=== PATIENT | female | born 1970 | race Two or more races ===

== ENCOUNTER 2020-03-26 10:02 | Outpatient (REF) | payer MEDICAID, SELFPAY ==
[2020-03-26 17:55] LABS: Alanine Aminotransferase 38 U/L (0-31); Aspartate Amino Transferase 24 U/L (5-31); Cholesterol 359 mg/dL; HDL Cholesterol 41 mg/dL; Triglycerides 546 mg/dL
== END 2020-03-26 10:03 | disposition home or self-care (01) ==
LOC: CF 10:02
PROVIDERS: PCP Family Medicine; Visit Provider Nurse Practitioner Family
DX: R00.2 Palpitations (principal); I25.10 Atherosclerotic heart disease of native coronary artery without angina pectoris; E78.5 Hyperlipidemia, unspecified; E66.9 Obesity, unspecified; M79.606 Pain in leg, unspecified
CPT/HCPCS: 36415; 80061; 82550; 84450; 84460; 99214

== ENCOUNTER 2020-04-07 14:39 | Outpatient (REF) | payer MEDICAID, SELFPAY ==
--- NOTE | 2020-04-07 14:40 | CT_ITS ---
EXAMINATION: CT CHEST WITHOUT CONTRAST CLINICAL INFORMATION: Pulmonary nodule COMPARISON: Lung windows from abdominal pelvic CT scan August 2016 and previous chest x-rays most recent January 2020 TECHNIQUE: Multidetector volumetric CT imaging of the chest was done. Axial MIP volume rendering provided. Sagittal and coronal reformatted images were obtained. This CT examination was performed using dose optimization techniques as appropriate, variously including the following: *Automated exposure control *Adjustment of mA and/or kV according to patient size (this includes techniques or standardized protocols for targeted exams where dose is matched to indication/reason for exam; i.e. extremities or head) *Use of iterative reconstruction technique DLP: 416 mGy-cm FINDINGS: LUNGS: There are multiple bilateral calcified pulmonary nodules. Largest right pulmonary nodule measures 5 mm in the right lower lobe axial image 283 series 5. Largest left pulmonary nodule measures 5 mm axial image 240 series 5. These probably represent calcified granulomas. The lungs are otherwise clear. MEDIASTINUM: There are small calcified left hilar lymph nodes. There are small noncalcified mediastinal lymph nodes. No enlarged lymph nodes are seen. Heart does not appear enlarged. There is no pericardial effusion. PLEURA: There is no pleural effusion. No pleural mass or thickening. AXILLA: No lymphadenopathy. UPPER ABDOMEN: The liver may be enlarged. There are areas of cortical thinning or scarring of the kidneys. OSSEOUS STRUCTURES: There are degenerative changes of the spine. IMPRESSION: Multiple bilateral calcified pulmonary nodules suggestive of calcified granulomas.
== END 2020-04-07 14:40 | disposition home or self-care (01) ==
LOC: HO.CT 14:39
PROVIDERS: PCP Family Medicine; Visit Provider Family Medicine
DX: R91.1 Solitary pulmonary nodule (principal)
CPT/HCPCS: 71250

== ENCOUNTER → 2020-04-08 13:45 | Outpatient (BNVA) | payer MEDICAID, SELFPAY | PROVIDERS: PCP Family Medicine; Referring Provider Family Medicine; Visit Provider Physician Assistant | DX: K21.9 Gastro-esophageal reflux disease without esophagitis (principal); K76.0 Fatty (change of) liver, not elsewhere classified; K82.4 Cholesterolosis of gallbladder; Z79.899 Other long term (current) drug therapy | CPT/HCPCS: 99204 ==

== ENCOUNTER 2020-04-16 08:31 | Outpatient (REF) | payer MEDICAID, SELFPAY ==
--- NOTE | 2020-04-16 08:40 | US_ITS ---
EXAMINATION: US COMPLETE ABDOMEN WITH LIVER ELASTOGRAPHY CLINICAL INFORMATION: Fatty liver. COMPARISON: Ultrasound abdomen 04/09/2018 and 04/19/2019 TECHNIQUE: Real-time imaging of the abdominal viscera. Noninvasive ultrasound liver fibrosis assessment is performed using Irma ElastPQ point quantification shear wave elastography (pSWE) with a 5 MHz transducer. Multiple elastography samples are obtained. FINDINGS: PANCREAS: Normal. The visualized pancreatic head and body are normal in appearance. The remainder of the pancreas is obscured from visualization by the overlying bowel gas. ABDOMINAL AORTA: The proximal, middle and distal aortic segments are normal in caliber. INFERIOR VENA CAVA: Visualized portions are normal. LIVER: Normal. The liver demonstrates normal size, contour and heterogenous echogenicity. No focal lesion or intrahepatic biliary duct dilatation. The right lobe measures 22.6 cm in length. The left lobe measures 12.5 cm in length. There is hepatopedal flow seen in the portal vein on Doppler exam. Shear wave elastography provides a median stiffness of 1.54 m/s (reference: normal median stiffness is 0.81 - 1.22 m/s). The IQR/median stiffness to assess sampling precision is 0.25 (reference: optimal IQR/median stiffness is under 0.3). GALLBLADDER: Nonmobile echogenic polyp measuring 0.5 x 0.4 cm. No echogenic stones or wall thickening seen. COMMON BILE DUCT: Normal in caliber measuring 0.36 cm in diameter. RIGHT KIDNEY: Normal. No hydronephrosis. No renal calculi or focal parenchymal lesions. The kidney measures 11.6 cm in maximum dimension. LEFT KIDNEY: Mild cortical thinning versus lobulation noted in the midpole. No hydronephrosis. No renal calculi or focal parenchymal lesions. The kidney measures 11.1 cm in maximum dimension. SPLEEN: Normal. The spleen measures 9.0 cm in maximum dimension. FREE FLUID: None. US/US abdomen comp w elastography IMPRESSION: 1. Heterogenous echogenic liver without focal lesion. 2. Small gallbladder polyp. No echogenic stones or hydronephrosis. 3. Mild cortical thinning versus lobulation midpole left kidney. 4. Elastography: [id number] fibrosis, stage F2 - F3.
== END 2020-04-16 08:32 | disposition home or self-care (01) ==
LOC: HO.US 08:31
PROVIDERS: Visit Provider Physician Assistant
DX: K82.4 Cholesterolosis of gallbladder (principal); K76.0 Fatty (change of) liver, not elsewhere classified
CPT/HCPCS: 76705; 76981

== ENCOUNTER → 2020-04-21 13:40 | Outpatient (REF) | payer MEDICAID, SELFPAY ==
--- NOTE | 2020-04-21 13:47 | ECG_ITS ---
Hook-up date: 2020-04-21 14:05:00 Duration: 25:23:00 Test Indications: UNSPEC ATRIAL FLUTTER Medications: 467152 QRS complexes 25 Ventricular ectopics which represent <1 % of total QRS comp. 96 Supraventricular ectopics which represent <1 % of total QRS comp. * Paced QRS complexs which represent % of total QRS comp. VENTRICULAR ECTOPY 25 Isolated 0 Bigeminal Cycles 0 Couplets 0 Runs 0 Beats in Runs * Beats LONGEST at * BPM at :: -- * Beats FASTEST at * BPM at :: -- SUPRAVENTRICULAR ECTOPY 62 Isolated 0 Couplets 7 Runs 34 Beats in Runs 9 Beats LONGEST at 131 BPM at 04:38:21 2020-04-22 5 Beats FASTEST at 188 BPM at 14:30:55 2020-04-21 HEART RATES 61 MIN at 05:22:59 2020-04-22 96 AVG 161 MAX at 16:40:45 2020-04-21 LONGEST RR 1.0480 secs at 05:22:59 2020-04-22 S-T LEVELS Channel 1 - 128 mm at 14:05:00 2020-04-21 - 128 mm at 14:05:00 2020-04-21 Channel 2 - 128 mm at 14:05:00 2020-04-21 - 128 mm at 14:05:00 2020-04-21 Channel 3 - 128 mm at 03:32:41 -- - 128 mm at 03:32:41 Underlying rhythm is sinus; Average ventricular rate 96/min; range 61-161/min; About 45% of the time, ventricular rate>100/min; Occasional supraventricular ectopy with some short runs; No sustained arrhythmias; Patient diary not available for review, Referred By: Pamela Glover Overread By: CORDELL MONTAGUE
== END ==
LOC: HO.CARD 13:40
PROVIDERS: Visit Provider Nurse Practitioner Family
DX: R00.2 Palpitations (principal)
CPT/HCPCS: 93225; 93226

== ENCOUNTER → 2020-05-06 14:14 | Outpatient (BNVA) | payer MEDICAID, SELFPAY | PROVIDERS: PCP Family Medicine; Visit Provider Physician Assistant | DX: Z76.89 Persons encountering health services in other specified circumstances (principal) ==

== ENCOUNTER 2020-05-13 21:10 | Inpatient (IN) | payer MEDICAID, SELFPAY ==
[2020-05-13 21:19] VITALS: BP 156/75; PULSE 97; RESP 20; TEMP 36.7; O2SAT 97; BMI 40.2
--- NOTE | 2020-05-13 22:51 | US_ITS ---
EXAMINATION: ULTRASOUND VENOUS DUPLEX UPPER EXTREMITY CLINICAL INFORMATION: Rule out DVT COMPARISON: None TECHNIQUE: Sonographic evaluation of the right upper extremity veins was performed utilizing color Doppler and spectral analysis. FINDINGS: Lower portion of the right internal jugular vein appears patent. The right subclavian vein appears partially compressible, with minimal internal flow; appearance is suspicious for partial thrombosis. The right axillary vein, basilic vein, brachial vein, cephalic vein, and radial and ulnar veins appear patent. US/US venous duplex UE RT IMPRESSION: Suspect partial thrombosis of the right subclavian vein. This critical result was discussed with Dr. Bashir on 05/14/2020 12:23 AM, and it was ascertained that the content and urgency of the report was understood at the time of direct communication.
--- NOTE | 2020-05-13 23:12 | ED.GENADULT ---
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 Patient called her PCP advised her to come to the ED because her history of DVTs. Related Data Home Medications Medication Instructions Recorded Confirmed acetaminophen 650 mg 650 mg PO Q12H 03/26/20 03/26/20 tablet,extended release albuterol sulfate 90 mcg/actuation 2 puff INHALATION Q4-6H PRN 03/26/20 03/26/20 aerosol inhaler albuterol sulfate 90 mcg/actuation 1 inh INHALATION Q4-6H PRN 03/26/20 03/26/20 breath activated powder inhaler amlodipine 5 mg tablet 5 mg PO DAILY 03/26/20 03/26/20 aspirin 81 mg tablet,delayed 81 mg PO DAILY 03/26/20 03/26/20 release cholecalciferol (vitamin D3) 25 25 mcg PO DAILY 03/26/20 03/26/20 mcg (1,000 unit) capsule docusate sodium 100 mg capsule 100 mg PO DAILY 03/26/20 03/26/20 ezetimibe 10 mg tablet 10 mg PO DAILY 03/26/20 03/26/20 fluticasone propionate 110 1 puff INHALATION BID 03/26/20 03/26/20 mcg/actuation HFA aerosol inhaler gabapentin 400 mg capsule 400 mg PO DAILY 03/26/20 03/26/20 lorazepam 2 mg tablet 2 mg PO BEDTIME PRN 03/26/20 03/26/20 methocarbamol 500 mg tablet 500 mg PO QID 03/26/20 03/26/20 pantoprazole 40 mg tablet,delayed 40 mg PO DAILY 03/26/20 04/08/20 release ranitidine HCl 150 mg tablet mg PO PRN 03/26/20 03/26/20 rosuvastatin 10 mg tablet 10 mg PO DAILY 03/26/20 03/26/20 tramadol 50 mg tablet 50 mg PO Q4H PRN 03/26/20 03/26/20 zolpidem 10 mg tablet 10 mg PO BEDTIME PRN 03/26/20 03/26/20 Previous Rx's Medication Instructions Recorded fenofibrate 54 mg tablet 54 mg PO DAILY 30 Days #30 tab 03/27/20 Allergies Allergy/AdvReac Type Severity Reaction Status Date / Time loratadine [From CLARITIN] Allergy Mild CHILLS AND Verified 05/13/20 21:24 DIFF BREATHING Review of Systems Review of Systems: All other systems are reviewed and are negative Constitutional: Reports as per HPI and Reports no additional constitutional complaints Eyes: Reports as per HPI and Reports no additional eye complaints Reports system reviewed and no additional complaints, except as documented Cardiovascular: Reports as per HPI and Reports no additional cardiovascular complaints Respiratory: Reports as per HPI and Reports no additional respiratory complaints Gastrointestinal: Reports as per HPI and Reports no additional gastrointestinal complaints Genitourinary: Reports no additional female genitourinary complaints Musculoskeletal: Reports no additional musculoskeletal complaints Skin/Breast: Reports system reviewed and no additional complaints, except as docu Psychiatric: Reports no additional psychiatric complaints Endocrine: Reports no additional endocrine complaints Hematologic/Lymphatic: Reports no additional hematologic/lymphatic complaints Allergic/Immunologic: Reports no additional allergic/immunologic complaints Reports system reviewed and no additional complaints, except as documented and Reports Abnormal speech present [facility] Past Medical History Medical History Acid reflux Coronary artery disease Fatty liver Gall bladder polyp Hyperlipidemia Obesity (BMI 30-39.9) Surgical History History of cardiac cath Family History Family History Paternal Grandfather No problems noted. Father History of cancer Mother No problems noted. Social History Social History Alcohol intake: never Smoking Status: Never smoker Years Smoked: Prior smoker, no alcohol or drug use Use of substances other than those prescribed or required for medical reasons: No Advance Directives: No Advance Directives Information Provided: Yes Physical Exam Vital Signs: Vital Signs: Last Vital Signs Temp 98.0 F 05/13/20 21:19 Pulse 97 05/13/20 21:19 Resp 20 05/13/20 21:19 BP 156/75 H 05/13/20 21:19 Pulse Ox 97 05/13/20 21:19 Body Mass Index 40.2 Vital signs have been reviewed as normal and appeared to be correct. Blood pressure in the high range. Heart rate normal. Respiration rate normal. Temperature normal. Oxygen saturation normal. Appearance: Alert. Oriented X3. No acute distress. Head: Normal external exam. Normocephalic. Atraumatic. No Leroy signs noted. No raccoon eyes noted Eyes: PERRLA. EOMI. Conjunctiva and sclera normal. Eyelids normal. ENT: EAC normal. TM's Normal. Pharynx normal. Uvula midline. Moist mucous membranes. No trismus noted. No drooling noted. No muffled voice noted. Neck: Normal inspection. Neck supple. FROM. No adenopathy. Thyroid Normal. No meningeal signs. No neck mass noted. CVS: Normal heart rate and rhythm. Heart sound normal. No murmurs noted. Pulses normal throughout. Respiratory: No respiratory distress. Painless inspiration. Breath sounds normal. No wheezes/rales/rhonchi noted. Chest nontender. No accessory muscle usage noted or decreased air movement noted. Abdomen: Soft and nontender. Bowel sounds normal in all 4 quadrants. No distention noted. No organomegaly noted. No visible injury noted. Back: No CVA tenderness. Full range of motion noted. Skin: Skin warm and dry. Normal skin color. Normal skin turgor. No rashes/lesions/lacerations noted. Extremities: No lower extremity edema. Extremities exhibit normal range of motion. Extremities nontender. Neuro: Oriented X 3. No motor deficit. No sensory deficit. Reflexes normal. Medical Decision Making MDM Narrative Medical decision making narrative: Assessment and plan. 49-year-old female with history of DVTs presented with right upper extremity pain ultrasound revealed right subclavian vein DVT, will start the patient on Lovenox, patient will need long-term anticoagulation therapy, will admit the patient Lab Data Lab results reviewed: Yes I reviewed the patient's lab results. Result diagrams: 05/13/20 23:13 05/13/20 23:13 Labs: Lab Results 05/13/20 05/13/20 05/13/20 Range/Units 23:13 23:13 23:13 WBC 7.3 (4.8-10.8) X10*3/uL RBC 4.33 (4.20-5.50) X10*6/uL Hgb 13.3 (12.0-16.0) g/dl Hct 40.2 (37-47) % MCV 92.8 (80-98) fL MCH 30.7 (27.0-33.0) pg MCHC 33.1 (31.0-35.0) g/dl RDW 13.1 (11.0-16.0) % Plt Count 280 (160-400) X10*3/uL MPV 10.5 (9.4-12.3) fL Immature Gran % (Auto) 0.1 (0.0-0.4) % Neut % (Auto) 44.0 L (45-73) % Lymph % (Auto) 44.9 H (20-40) % [place] % (Auto) 10.0 (2-11) % Eos % (Auto) 0.7 (0-4) % Baso % (Auto) 0.3 (0-2) % Lymph # (Auto) 3.3 (1.2-4.9) X10*3/uL [place] # (Auto) 0.7 (0.1-1.2) X10*3/uL Eos # (Auto) 0.1 (0.0-0.4) X10*3/uL Baso # (Auto) 0.0 (0.0-0.2) X10*3/uL Abs Immat Gran (auto) 0.01 (0.00-0.03) X10*3/uL Absolute Neuts (auto) 3.2 (2.0-8.3) X10*3/uL Absolute Nucleated RBC 0.000 (0.0-0.012) X10*3/uL Nucleated RBC % (auto) 0.0 (0.0-0.2) /100WBC D-Dimer < 200 NG/ML Hold Blue Top SEE NOTE Sodium 137 (135-145) mmol/L Potassium 4.7 (3.3-5.1) mmol/l Chloride 104 (96-108) mmol/L Carbon Dioxide 22 (22-29) mmol/L Anion Gap 16 (12-20) BUN 19 H (9-16) mg/dL Creatinine 0.90 (0.5-1.4) mg/dL Estim Creat Clear Calc 78.0 Estimated GFR > 60 Random Glucose 102 (60-115) mg/dL Calcium 9.5 (8.4-10.2) mg/dL Urine Color Urine Appearance Urine pH (5.0-8.0) Ur Specific [place] (1.005-1.025) Urine Protein (NEG-TRACE) MG/DL Urine Glucose (UA) (NEG) MG/DL Urine Ketones (NEG) MG/DL Urine Blood (NEG) Urine Nitrite (NEG) Ur Leukocyte Esterase (NEG) 05/13/20 Range/Units 23:13 WBC (4.8-10.8) X10*3/uL RBC (4.20-5.50) X10*6/uL Hgb (12.0-16.0) g/dl Hct (37-47) % MCV (80-98) fL MCH (27.0-33.0) pg MCHC (31.0-35.0) g/dl RDW (11.0-16.0) % Plt Count (160-400) X10*3/uL MPV (9.4-12.3) fL Immature Gran % (Auto) (0.0-0.4) % Neut % (Auto) (45-73) % Lymph % (Auto) (20-40) % [place] % (Auto) (2-11) % Eos % (Auto) (0-4) % Baso % (Auto) (0-2) % Lymph # (Auto) (1.2-4.9) X10*3/uL [place] # (Auto) (0.1-1.2) X10*3/uL Eos # (Auto) (0.0-0.4) X10*3/uL Baso # (Auto) (0.0-0.2) X10*3/uL Abs Immat Gran (auto) (0.00-0.03) X10*3/uL Absolute Neuts (auto) (2.0-8.3) X10*3/uL Absolute Nucleated RBC (0.0-0.012) X10*3/uL Nucleated RBC % (auto) (0.0-0.2) /100WBC D-Dimer NG/ML Hold Blue Top Sodium (135-145) mmol/L Potassium (3.3-5.1) mmol/l Chloride (96-108) mmol/L Carbon Dioxide (22-29) mmol/L Anion Gap (12-20) BUN (9-16) mg/dL Creatinine (0.5-1.4) mg/dL Estim Creat Clear Calc Estimated GFR Random Glucose (60-115) mg/dL Calcium (8.4-10.2) mg/dL Urine Color YELLOW Urine Appearance CLEAR Urine pH 7.5 (5.0-8.0) Ur Specific [place] 1.025 (1.005-1.025) Urine Protein NEG (NEG-TRACE) MG/DL Urine Glucose (UA) NEG (NEG) MG/DL Urine Ketones NEG (NEG) MG/DL Urine Blood NEG (NEG) Urine Nitrite NEG (NEG) Ur Leukocyte Esterase NEG (NEG) Imaging Data Right upper extremities venous ultrasound: My impression: Suspect partial thrombosis of the right subclavian vein. Discharge Plan Discharge Clinical Impression: DVT (deep venous thrombosis) Patient Disposition: Admitted As Inpatient Prescriptions: No Action fenofibrate 54 mg tablet 54 mg PO DAILY 30 Days Qty: 30 RF: 5 ranitidine HCl 150 mg tablet PO PRNRF: 0 albuterol sulfate 90 mcg/actuation aerosol powdr breath activated 1 inh inhalation Q4-6H PRNRF: 0 lorazepam [Ativan] 2 mg tablet 2 mg PO BEDTIME PRNRF: 0 Flovent HFA 110 mcg/actuation HFA aerosol inhaler 1 puff inhalation BID RF: 0 zolpidem [Ambien] 10 mg tablet 10 mg PO BEDTIME PRNRF: 0 albuterol sulfate [ProAir HFA] 90 mcg/actuation HFA aerosol inhaler 2 puff inhalation Q4-6H PRNRF: 0 tramadol 50 mg tablet 50 mg PO Q4H PRNRF: 0 aspirin [Adult Low Dose Aspirin] 81 mg tablet,delayed release (DR/EC) 81 mg PO DAILY RF: 0 cholecalciferol (vitamin D3) 25 mcg (1,000 unit) capsule 25 mcg PO DAILY RF: 0 rosuvastatin [Crestor] 10 mg tablet 10 mg PO DAILY RF: 0 methocarbamol 500 mg tablet 500 mg PO QID RF: 0 gabapentin [Neurontin] 400 mg capsule 400 mg PO DAILY RF: 0 acetaminophen 650 mg tablet extended release 650 mg PO Q12H RF: 0 pantoprazole [Protonix] 40 mg tablet,delayed release (DR/EC) 40 mg PO DAILY RF: 0 docusate sodium [Colace] 100 mg capsule 100 mg PO DAILY RF: 0 ezetimibe [Zetia] 10 mg tablet 10 mg PO DAILY RF: 0 amlodipine [Norvasc] 5 mg tablet 5 mg PO DAILY RF: 0
[2020-05-13 23:19] LABS: Basophils Percent Auto 0.3 % (0-2); Eosinophils Absolute Auto 0.1 X10*3/uL (0.0-0.4); Eosinophils Percent Auto 0.7 % (0-4); Hematocrit 40.2 % (37-47); Hemoglobin 13.3 g/dl (12.0-16.0); Imm Gran Abs Auto 0.01 X10*3/uL (0.00-0.03); Imm Gran Pct Auto 0.1 % (0.0-0.4); Lymphocytes Absolute Auto 3.3 X10*3/uL (1.2-4.9); Lymphocytes Percent Auto 44.9 % (20-40); MANUAL DIFF FLAG NO; Mean Corpuscular HGB Conc 33.1 g/dl (31.0-35.0); Mean Corpuscular Hemoglobin 30.7 pg (27.0-33.0); Mean Corpuscular Volume 92.8 fL (80-98); Mean Platelet Volume 10.5 fL (9.4-12.3); Monocytes Absolute Auto 0.7 X10*3/uL (0.1-1.2); Neutrophils Absolute Auto 3.2 X10*3/uL (2.0-8.3); Platelet Count 280 X10*3/uL (160-400); Red Blood Count 4.33 X10*6/uL (4.20-5.50); Red Cell Distribution Width 13.1 % (11.0-16.0); White Blood Count 7.3 X10*3/uL (4.8-10.8)
[2020-05-13 23:22] LABS: Glucose Urine UA NEG (NEG); Leukocyte Esterase Urine NEG (NEG); Nitrite Urine NEG (NEG); PH 7.5 (5.0-8.0); Specific Gravity - Urine 1.025 (1.005-1.025); Urine Blood NEG (NEG); Urine Ketones NEG (NEG); Urine Protein NEG (NEG-TRACE)
[2020-05-13 23:23] LABS: Appearance Urine CLEAR; Color Urine YELLOW
[2020-05-13 23:33] LABS: D Dimer < 200 NG/ML
[2020-05-13 23:52] LABS: Anion Gap 16 (12-20); Blood Urea Nitrogen 19 mg/dL (9-16); Calcium 9.5 mg/dL (8.4-10.2); Carbon Dioxide 22 mmol/L (22-29); Chloride 104 mmol/L (96-108); Estimated Glomerular Filt Rate > 60; Glucose Random 102 mg/dL (60-115); Potassium 4.7 mmol/l (3.3-5.1); Sodium 137 mmol/L (135-145)
[2020-05-14] VITALS (9 sets, daily range): BP systolic 107–146; BP diastolic 56–90; PULSE 80–86; RESP 12–84; TEMP 36.6–36.9; O2SAT 95–98
[2020-05-14 01:10] LABS: Prothrombin Time 12.2 SEC (10.8-13.0)
[2020-05-14 01:12] LABS: Partial Thromboplastin Time 37.9 SEC (24.1-38.0)
[2020-05-14] MEDS: Enoxaparin Sodium 150 MG/ML SYRINGE 95 MG SUBCUT (01:38)
[2020-05-14 03:00] LABS: COVID-19 Test Negative (Negative)
--- NOTE | 2020-05-14 03:22 | PM.IMHP ---
History of Present Illness Date of Service: 05/14/20 Chief Complaint: Right arm pain 49 y/o female with extensive PMHX who presented from home due to RUE pain. Per history provided by the patient, since yesterday afternoon has been having worsening right arm pain associated with swelling at the level of the right side of the neck. Pateint denies any chest pain, SOB, nausea, vomiting, diarrhea or fever. On presentation to the ED patient was noted to be tachycardic which later normalized, BP stable, no evidence of fever, Doppler of RUE showing suspected partial DVT of the right subclavian vein. One dose of full dose anticoagulation given per ED and decision was given for admission. Patient seen and examined at the bedside, laying down in bed in no acute distress. ROS as above otherwise negative. Physical exam positive for RUE swelling at the level of the neck, hot to touch. Rest of the exam unremarkable. Patient reports that had hx of DVT in the past but was treated with a short course of AC injections in the hospital and then discharged on aspirin, this occur several years ago. PMHX: HLP, Asthma, Migraines, Panic disorder, DVT not on anticoagulation PSx: none Toxic habits: No hx of alcohol abuse, smoking or IVDA Review of Systems Musculoskeletal: Musculoskeletal: Reports other (right arm pain) [facility]LY [facility] Medical History Acid reflux Coronary artery disease Fatty liver Fibromyalgia Gall bladder polyp Hyperlipidemia Hypertension Obesity (BMI 30-39.9) Sleep apnea Functional capacity: independent ambulation Family History Paternal Grandfather No problems noted. Father History of cancer Lung cancer Mother No problems noted. Family history: reviewed and not pertinent Surgical History (Updated 05/15/20 @ 14:58 by America Leija MD) History of cardiac cath Social History Household Members: Significant Other and Children Housing: Apartment Alcohol intake: never Smoking Status: Never smoker Years Smoked: Prior smoker, no alcohol or drug use Smoked in Last 30 Days: No Second Hand Smoke Exposure: No Use of substances other than those prescribed or required for medical reasons: No Advance Directives: No Advance Directives Information Provided: No service: No Meds Allergies Allergy/AdvReac Type Severity Reaction Status Date / Time loratadine [From CLARITIN] Allergy Mild CHILLS AND Verified 05/21/20 21:06 DIFF BREATHING Home Medications Medication Instructions Recorded Confirmed Type albuterol sulfate 90 mcg/actuation 1 inh INHALATION Q4-6H PRN 03/26/20 05/14/20 History breath activated powder inhaler amlodipine 5 mg tablet 5 mg PO DAILY 03/26/20 05/14/20 History aspirin 81 mg tablet,delayed 81 mg PO DAILY 03/26/20 05/14/20 History release cholecalciferol (vitamin D3) 25 25 mcg PO DAILY 03/26/20 05/14/20 History mcg (1,000 unit) capsule docusate sodium 100 mg capsule 100 mg PO DAILY PRN 03/26/20 05/14/20 History ezetimibe 10 mg tablet 10 mg PO DAILY 03/26/20 05/14/20 History fluticasone propionate 110 1 puff INHALATION BID 03/26/20 05/14/20 History mcg/actuation HFA aerosol inhaler gabapentin 400 mg capsule 400 mg PO DAILY 03/26/20 05/14/20 History lorazepam 2 mg tablet 2 mg PO BEDTIME PRN 03/26/20 05/14/20 History methocarbamol 500 mg tablet 500 mg PO QID PRN 03/26/20 05/14/20 History pantoprazole 40 mg tablet,delayed 40 mg PO DAILY 03/26/20 05/14/20 History release rosuvastatin 10 mg tablet 10 mg PO DAILY 03/26/20 05/14/20 History zolpidem 10 mg tablet 5 mg PO BEDTIME PRN 03/26/20 05/14/20 History tramadol 50 mg PO BID PRN 05/20/20 05/20/20 History Physical Exam Vital Signs and Narrative: Vital Signs: Last Vital Signs Temp 98.0 F 05/13/20 21:19 Pulse 83 05/14/20 00:00 Resp 15 05/14/20 00:00 BP 130/70 05/14/20 00:00 Pulse Ox 98 05/14/20 00:00 Body Mass Index 40.2 Const: General: cooperative, comfortable and no acute distress Orientation/consciousness: oriented to person, oriented to place and oriented to time HENMT: Head: Yes normal to inspection Eyes: General: appearance normal, both eyes and all related structures Neck: Yes other (right side swelling / hot to touch on palpation) Chest: Chest palpation & inspection: normal inspection of the chest Resp: Effort & Inspection: normal respiratory effort and able to speak in complete sentences Cardio: Jugular venous distension: no JVD Rate: regular rate Rhythm: regular rhythm Heart sounds: S1 normal heart sound present and S2 normal heart sound present GI: Inspection: Yes normal to inspection Skin: General skin exam: no rashes or lesions noted Neuro: General: oriented to person, oriented to place and oriented to time Cognition (Neuro): normal cognition Motor exam (neuro): 5/5 motor strength present throughout Results Labs CBC and Chem 7: 05/15/20 05:22 05/15/20 05:21 Labs: Laboratory Results - last 24 hr 05/13/20 05/13/20 05/13/20 23:13 23:13 23:13 MCV 92.8 MCH 30.7 MCHC 33.1 RDW 13.1 Plt Count 280 MPV 10.5 Immature Gran % (Auto) 0.1 Neut % (Auto) 44.0 L Lymph % (Auto) 44.9 H Nobles % (Auto) 10.0 Eos % (Auto) 0.7 Baso % (Auto) 0.3 Lymph # (Auto) 3.3 Nobles # (Auto) 0.7 Eos # (Auto) 0.1 Baso # (Auto) 0.0 Abs Immat Gran (auto) 0.01 Absolute Neuts (auto) 3.2 Absolute Nucleated RBC 0.000 Nucleated RBC % (auto) 0.0 PT 12.2 INR 1.0 APTT 37.9 D-Dimer < 200 Hold Blue Top SEE NOTE Anion Gap 16 Estim Creat Clear Calc 78.0 Estimated GFR > 60 Random Glucose 102 Calcium 9.5 Urine Color Urine Appearance Urine pH Ur Specific Mikado Urine Protein Urine Glucose (UA) Urine Ketones Urine Blood Urine Nitrite Ur Leukocyte Esterase COVID-19 (MIREYA) COVID-19 Clin Com 05/13/20 05/14/20 23:13 02:42 MCV MCH MCHC RDW Plt Count MPV Immature Gran % (Auto) Neut % (Auto) Lymph % (Auto) Nobles % (Auto) Eos % (Auto) Baso % (Auto) Lymph # (Auto) Nobles # (Auto) Eos # (Auto) Baso # (Auto) Abs Immat Gran (auto) Absolute Neuts (auto) Absolute Nucleated RBC Nucleated RBC % (auto) PT INR APTT D-Dimer Hold Blue Top Anion Gap Estim Creat Clear Calc Estimated GFR Random Glucose Calcium Urine Color YELLOW Urine Appearance CLEAR Urine pH 7.5 Ur Specific Mikado 1.025 Urine Protein NEG Urine Glucose (UA) NEG Urine Ketones NEG Urine Blood NEG Urine Nitrite NEG Ur Leukocyte Esterase NEG COVID-19 (MIREYA) Negative COVID-19 Clin Com See Note Imaging Radiologist's Impressions: Impressions Venous Duplex 05/13/20 22:51 IMPRESSION: Suspect partial thrombosis of the right subclavian vein. This critical result was discussed with Dr. Bashir on 05/14/2020 12:23 AM, and it was ascertained that the content and urgency of the report was understood at the time of direct communication. Assessment and Plan (1) DVT (deep venous thrombosis): Qualifiers: Affected thrombotic vein of extremity: other upper extremity vein Chronicity: acute DVT location: upper extremity Laterality: right Qualified Code(s): I82.621 - Acute embolism and thrombosis of deep veins of right upper extremity Status: Resolved One dose of full dose AC given per ED Continue with full dose lovenox as of now Follow up Protein C, Protein S, Factor V Leiden, antithrombin activity Hematology consult in the am for further recs (2) Hyperlipidemia: Problem details: ideal LDL goal less than 70. she has been intolerant to high-dose atorvastatin. She is now on Crestor 10 mg daily and Zetia 10 mg daily which she had been tolerating. Now reports bilateral leg discomfort and tenderness. Unclear if it is related to statin use. continue with oral home meds as ordered (3) Coronary artery disease: Problem details: history of nonobstructive coronary artery disease, mild. No report of anginal sounding symptoms. Her cholesterol has not been optimally controlled in the past. continue with amlodipine home dose continue with aspirin home dose (4) Acid reflux: Problem details: 70 lb weight gain- continue with PPI home dose
[2020-05-14] MEDS: Morphine Sulfate 2 MG/ML CARTRIDGE 1 MG IVPUSH (04:19)
[2020-05-14] MEDS: Magnesium Hydrox/Alum Hydrox 30 ML ORAL.SUSP 15 ML PO (04:20)
--- NOTE | 2020-05-14 08:45 | PC.NURSE ---
report taken from eyal valentin pt moved to room 8 via stretcher, given breakfast, given phone to call family member. awiating inpt admission.
--- NOTE | 2020-05-14 11:39 | PC.NURSE ---
pt asking for ativan, has it ordered prn at bedtime. did not recieve it last night. hospitalist contacted to continue med list.
[2020-05-14] MEDS: LORazepam 1 MG TABLET PO (11:49)
--- NOTE | 2020-05-14 13:57 | PC.NURSE ---
report given to juan valentin.
[2020-05-14] MEDS: Enoxaparin Sodium 100 MG/ML SYRINGE 95 MG SUBCUT (15:46)
[2020-05-14] MEDS: amLODIPine Besylate 5 MG TABLET PO (15:46)
[2020-05-14] MEDS: 0.9 % Sodium Chloride Flush 3 ML SYRINGE IVFLUSH ×3 (15:47→20:31)
[2020-05-14 15:49] LABS: MANUAL DIFF FLAG NO
[2020-05-14 15:52] LABS: Basophils Percent Auto 0.3 % (0-2); Eosinophils Absolute Auto 0.1 X10*3/uL (0.0-0.4); Eosinophils Percent Auto 0.8 % (0-4); Hematocrit 41.2 % (37-47); Hemoglobin 13.8 g/dl (12.0-16.0); Imm Gran Abs Auto 0.01 X10*3/uL (0.00-0.03); Imm Gran Pct Auto 0.2 % (0.0-0.4); Lymphocytes Absolute Auto 2.6 X10*3/uL (1.2-4.9); Lymphocytes Percent Auto 44.3 % (20-40); Mean Corpuscular HGB Conc 33.5 g/dl (31.0-35.0); Mean Corpuscular Hemoglobin 31.2 pg (27.0-33.0); Mean Platelet Volume 10.7 fL (9.4-12.3); Monocytes Absolute Auto 0.4 X10*3/uL (0.1-1.2); Monocytes Percent Auto 7.3 % (2-11); Neutrophils Absolute Auto 2.8 X10*3/uL (2.0-8.3); Neutrophils Percent Auto 47.1 % (45-73); Platelet Count 277 X10*3/uL (160-400); Red Blood Count 4.43 X10*6/uL (4.20-5.50); Red Cell Distribution Width 13.2 % (11.0-16.0); White Blood Count 5.9 X10*3/uL (4.8-10.8)
[2020-05-14 16:15] LABS: Anion Gap 15 (12-20); Blood Urea Nitrogen 13 mg/dL (9-16); Calcium 9.6 mg/dL (8.4-10.2); Carbon Dioxide 25 mmol/L (22-29); Chloride 103 mmol/L (96-108); Creatinine Clr Calc Pharmacy 83.6; Estimated Glomerular Filt Rate > 60; Glucose Random 126 mg/dL (60-115); Potassium 4.1 mmol/l (3.3-5.1); Sodium 139 mmol/L (135-145)
[2020-05-14] MEDS: traMADoL HCL 50 MG TABLET PO (16:33)
[2020-05-14] MEDS: Cyclobenzaprine HCl 10 MG TABLET PO (20:30)
[2020-05-14] MEDS: LORazepam 1 MG TABLET 2 MG PO (20:30)
[2020-05-15] MEDS: Enoxaparin Sodium 100 MG/ML SYRINGE 95 MG SUBCUT ×2 (03:29→15:19)
[2020-05-15] MEDS: Omeprazole 20 MG CAPSULE.DR PO (05:22)
[2020-05-15 06:20] LABS: Hematocrit 40.5 % (37-47); Hemoglobin 13.4 g/dl (12.0-16.0); Mean Corpuscular HGB Conc 33.1 g/dl (31.0-35.0); Mean Corpuscular Hemoglobin 30.7 pg (27.0-33.0); Mean Corpuscular Volume 92.9 fL (80-98); Mean Platelet Volume 10.9 fL (9.4-12.3); Platelet Count 282 X10*3/uL (160-400); Red Blood Count 4.36 X10*6/uL (4.20-5.50); Red Cell Distribution Width 13.3 % (11.0-16.0); White Blood Count 6.6 X10*3/uL (4.8-10.8)
[2020-05-15 06:41] LABS: Anion Gap 13 (12-20); Blood Urea Nitrogen 15 mg/dL (9-16); Calcium 9.4 mg/dL (8.4-10.2); Carbon Dioxide 26 mmol/L (22-29); Chloride 104 mmol/L (96-108); Creatinine Clr Calc Pharmacy 73.9; Estimated Glomerular Filt Rate > 60; Glucose Random 98 mg/dL (60-115); Potassium 4.3 mmol/l (3.3-5.1); Sodium 139 mmol/L (135-145)
[2020-05-15 08:00] VITALS: BP 119/65; PULSE 88; RESP 17; TEMP 37; O2SAT 98
[2020-05-15] MEDS: Cyclobenzaprine HCl 10 MG TABLET PO (09:44)
[2020-05-15] MEDS: amLODIPine Besylate 5 MG TABLET PO (09:44)
[2020-05-15] MEDS: Ezetimibe 10 MG TABLET PO (09:44)
[2020-05-15] MEDS: Fenofibrate 54 MG TABLET PO (09:44)
[2020-05-15] MEDS: 0.9 % Sodium Chloride Flush 3 ML SYRINGE IVFLUSH ×2 (09:44→15:20)
[2020-05-15] MEDS: Docusate Sodium 100 MG CAPSULE PO (09:44)
[2020-05-15] MEDS: Atorvastatin Calcium 40 MG TABLET PO (09:44)
--- NOTE | 2020-05-15 11:32 | MHC.CM.PN ---
dc plan is home no servceis pt will have own tranp[sortaion hpme
[2020-05-15 11:38] VITALS: BMI 40.2
--- NOTE | 2020-05-15 12:09 | MHC.CM.PN ---
met with pt who is indepedent cm interventioin is not indicated dc plan home no servceis
--- NOTE | 2020-05-15 14:45 | P.CNHO_ITS ---
Subjective - Subjective Chief complaint: Right arm pain Patient: new to practice Consult date: 05/15/20 Primary Care Provider: Ava Yap DO HPI - Consult Narrative Reason for consult: Partial right subclavian vein thrombosis Narrative: Ximena Muhammad is a 49 year old female admitted to the hospital with complaints of right upper quadrant pain and found to have DVT. She states that a week ago she had bilateral leg pain and saw her PCP. She has a history of fibromyalgia. She has chronic pain. Two days ago she developed pain in the right upper extremity and neck for which she presented in the ED. Doppler revealed partial thrombosis of the right subclavian vein. She was started on anticoagulation, she reports that the pain is better. She has not had any swelling in the right upper extremity. She denies any trauma to the right upper extremity. There is no family history of thromboembolism. She is not a smoker. No past history of thrombosis but she states that she was on subcutaneous Lovenox for 7 days for unclear reasons, this was 7 8 years ago. She has never been on long- term warfarin or any other anticoagulant. Review of Systems - Constitutional Reports no additional constitutional complaints - Cardiovascular Denies chest pain, Denies chest pain with activity, Denies irregular heart rhythm - Respiratory Denies cough, Denies hemoptysis, Denies pain with cough, Denies dyspnea on exertion - Gastrointestinal Reports no additional gastrointestinal complaints Oncology Screenings - ECOG Performance Status ECOG Performance Status: 1 [facility] Medical History: Medical History (Last Reviewed 05/14/20 @ 03:30 by Joaquim Hinds MD) Acid reflux Coronary artery disease Fatty liver Gall bladder polyp Hyperlipidemia Obesity (BMI 30-39.9) Functional capacity: independent ambulation Family History: Family History (Last Reviewed 05/14/20 @ 03:30 by Joaquim Hinds MD) Paternal Grandfather No problems noted. Father History of cancer Mother No problems noted. Family history: reviewed and not pertinent Surgical History: Surgical History (Last Reviewed 05/14/20 @ 03:30 by Joaquim Hinds MD) History of cardiac cath Smoking status: Never smoker Home Medications and Allergies Current Medications: Current Medications Generic Name Dose Route Start Last Admin Trade Name Freq PRN Reason Stop Dose Admin Albuterol Sulfate 1 puff 05/14/20 14:28 Albuterol Sulfate 90 Mcg 8 Gm Inhaler INHALE Q4H PRN Gastric Reflux Amlodipine Besylate 5 mg 05/14/20 14:28 05/15/20 09:44 Amlodipine Besylate 5 Mg Tablet PO 5 mg DAILY BABAR Administration Protocol Atorvastatin Calcium 40 mg 05/15/20 09:00 05/15/20 09:44 Atorvastatin Calcium 40 Mg Tablet PO 40 mg DAILY BABAR Administration Cyclobenzaprine HCl 10 mg 05/14/20 21:00 05/15/20 09:44 Cyclobenzaprine Hcl 10 Mg Tablet PO 10 mg BID BABAR Administration Docusate Sodium 100 mg 05/15/20 09:00 05/15/20 09:44 Docusate Sodium 100 Mg Capsule PO 100 mg DAILY BABAR Administration Ezetimibe 10 mg 05/15/20 09:00 05/15/20 09:44 Ezetimibe 10 Mg Tablet PO 10 mg DAILY BABAR Administration Enoxaparin Sodium 95 mg 05/14/20 15:00 05/15/20 03:29 Enoxaparin Sodium 100 Mg/Ml Syringe SUBCUT 95 mg Q12H BABAR Administration Fenofibrate 54 mg 05/15/20 09:00 05/15/20 09:44 Fenofibrate 54 Mg Tablet PO 54 mg DAILY BABAR Administration Gabapentin 400 mg 05/15/20 09:00 05/15/20 09:47 Gabapentin 400 Mg Capsule PO Not Given DAILY BABAR Lorazepam 2 mg 05/14/20 14:28 05/14/20 20:30 Lorazepam 1 Mg Tablet PO 2 mg BEDTIME PRN Administration Anxiety Omeprazole 20 mg 05/15/20 06:30 05/15/20 05:22 Omeprazole 20 Mg Capsule.Dr PO 20 mg DAILY@0630 BABAR Administration Sodium Chloride 3 ml 05/14/20 14:28 05/15/20 09:44 0.9 % Sodium Chloride Flush 3 Ml Syringe IVFLUSH 3 ml QSHIFT BABAR Administration Tramadol HCl 50 mg 05/14/20 16:22 05/14/20 16:33 Tramadol Hcl 50 Mg Tablet PO 50 mg Q6H PRN Administration Pain, Severe (Pain Scale 7-10) Zolpidem Tartrate 5 mg 05/14/20 14:28 Zolpidem Tartrate 5 Mg Tablet PO BEDTIME PRN Anxiety Home Medications Medication Instructions Recorded Confirmed Type albuterol sulfate 90 mcg/actuation 1 inh INHALATION Q4-6H PRN 03/26/20 05/14/20 History breath activated powder inhaler amlodipine 5 mg tablet 5 mg PO DAILY 03/26/20 05/14/20 History aspirin 81 mg tablet,delayed 81 mg PO DAILY 03/26/20 05/14/20 History release cholecalciferol (vitamin D3) 25 25 mcg PO DAILY 03/26/20 05/14/20 History mcg (1,000 unit) capsule docusate sodium 100 mg capsule 100 mg PO DAILY 03/26/20 05/14/20 History ezetimibe 10 mg tablet 10 mg PO DAILY 03/26/20 05/14/20 History fluticasone propionate 110 1 puff INHALATION BID 03/26/20 05/14/20 History mcg/actuation HFA aerosol inhaler gabapentin 400 mg capsule 400 mg PO DAILY 03/26/20 05/14/20 History lorazepam 2 mg tablet 2 mg PO BEDTIME PRN 03/26/20 05/14/20 History methocarbamol 500 mg tablet 500 mg PO QID 03/26/20 05/14/20 History pantoprazole 40 mg tablet,delayed 40 mg PO DAILY 03/26/20 05/14/20 History release rosuvastatin 10 mg tablet 10 mg PO DAILY 03/26/20 05/14/20 History zolpidem 10 mg tablet 10 mg PO BEDTIME PRN 03/26/20 05/14/20 History Allergies Allergy/AdvReac Type Severity Reaction Status Date / Time loratadine [From CLARITIN] Allergy Mild CHILLS AND Verified 05/13/20 21:24 DIFF BREATHING Physical Exam Vital signs: Vital Signs Temp 98.6 F 05/15/20 08:00 Pulse 88 05/15/20 08:00 Resp 17 05/15/20 08:00 BP 119/65 05/15/20 08:00 Pulse Ox 98 05/15/20 08:00 Intake & Output 05/14/20 05/15/20 05/15/20 18:59 06:59 18:59 Intake Total 120 / 120 Balance 120 / 120 Intake: Intake, Oral Amount 120 / 120 Other: Afternoon Snack % Eaten 100 Number of Unmeasured Voids 2 3 Weight 93.44 kg Weight 93.44 kg - Constitutional Present: no acute distress - Routine HEENT Exam Head: Present: normal inspection Eye: Present: EOMI, PERRL - Routine Respiratory Exam Present: CTAB. Absent: respiratory distress - Routine Cardiovascular Exam Cardiovascular: Present: S1, S2 - Routine Extremities Exam Present: pulses intact. Absent: tenderness, palpable cord - Routine Skin Exam Present: intact, cyanosis - Routine Neurological Exam Present: alert, oriented X3 Hem/Onc Consult Result - Labs CBC & Chem 7: 05/15/20 05:22 05/15/20 05:21 Labs: Short CBC 05/14/20 05/15/20 Range/Units 15:19 05:22 WBC 5.9 6.6 (4.8-10.8) X10*3/uL Hgb 13.8 13.4 (12.0-16.0) g/dl Hct 41.2 40.5 (37-47) % Plt Count 277 282 (160-400) X10*3/uL BMP 05/14/20 05/15/20 15:19 05:21 Sodium 139 139 Potassium 4.1 4.3 Chloride 103 104 Carbon Dioxide 25 26 BUN 13 15 Creatinine 0.84 0.95 Calcium 9.6 9.4 Assessment and Plan (1) DVT (deep venous thrombosis) Status: Acute Qualifiers: DVT location: upper extremity Affected thrombotic vein of extremity: other upper extremity vein Chronicity: acute Laterality: right Qualified Code(s): I82.621 - Acute embolism and thrombosis of deep veins of right upper extremity This is a 49-year-old woman who has been diagnosed with probable right upper extremity DVT. Her D-dimer was less than 200, Doppler was read as probable partial occlusion of right subclavian vein. Reviewed findings with radiologist, there is echogenic material and may be thrombosis. It is unclear as to the etiology. She is not a smoker, she is not on hormones/estrogens and she did not have any recent surgical procedure or trauma to the right upper extremity. Thrombophilia workup has been ordered and is pending. I would like to repeat right upper extremity Doppler in a few days. Continue with anticoagulation, she can be switched to 1 of the DOAC's. I will see her in follow-up in 1-2 weeks. I thank you very much for this referral.
[2020-05-15 15:19] VITALS: BP 123/75; PULSE 91; RESP 18; TEMP 36.8; O2SAT 95
--- NOTE | 2020-05-15 15:25 | P.DS_ITS ---
DS: Providers Provider Date of admission: 05/14/20 03:59 Primary care physician: Ava Yap DO Consults: 05/14/20 14:28 Consult to Hematology / Oncology Routine Consulting Provider: [facility] Oncology/Hematology Reason for consultation: DVT Has provider been notified: No DS: Diagnosis Discharge Diagnosis (1) DVT (deep venous thrombosis): Status: Acute (2) Fatty liver: Status: Acute Problem details: A 47-year-old female with multiple comorbidities history of gallbladder polyps as well as fatty liver presents with worsening acid reflux. She had admits to a 70 lb weight gain which certainly not desirable . We discussed importance maintaining good cholesterol as well as lipid and weight. She became extremely anxious about having gallbladder polyps- She had an ultrasound just 1 year ago a did not feel it was being followed. with his schedule her for a an abdominal ultrasound with elastography to assess both her liver as well as gallbladder polyps. She is reassured that the timing is appropriate. We will follow up after ultrasound available for review- with plan of care. (3) Obesity (BMI 30-39.9): Status: Acute DS: Medications Discharge Medications Home Medications: Home Medications Medication Instructions Recorded Confirmed albuterol sulfate 90 mcg/actuation 1 inh INHALATION Q4-6H PRN 03/26/20 05/14/20 breath activated powder inhaler amlodipine 5 mg tablet 5 mg PO DAILY 03/26/20 05/14/20 aspirin 81 mg tablet,delayed 81 mg PO DAILY 03/26/20 05/14/20 release cholecalciferol (vitamin D3) 25 25 mcg PO DAILY 03/26/20 05/14/20 mcg (1,000 unit) capsule docusate sodium 100 mg capsule 100 mg PO DAILY 03/26/20 05/14/20 ezetimibe 10 mg tablet 10 mg PO DAILY 03/26/20 05/14/20 fluticasone propionate 110 1 puff INHALATION BID 03/26/20 05/14/20 mcg/actuation HFA aerosol inhaler gabapentin 400 mg capsule 400 mg PO DAILY 03/26/20 05/14/20 lorazepam 2 mg tablet 2 mg PO BEDTIME PRN 03/26/20 05/14/20 methocarbamol 500 mg tablet 500 mg PO QID 03/26/20 05/14/20 pantoprazole 40 mg tablet,delayed 40 mg PO DAILY 03/26/20 05/14/20 release rosuvastatin 10 mg tablet 10 mg PO DAILY 03/26/20 05/14/20 zolpidem 10 mg tablet 10 mg PO BEDTIME PRN 03/26/20 05/14/20 Previous Rx's Medication Instructions Recorded fenofibrate 54 mg tablet 54 mg PO DAILY 30 Days #30 tab 03/27/20 apixaban [Eliquis] See Rx Instructions .ROUTE 05/15/20 .COMPLEX #80 tab DS: Summary Hospital Course Hospital Course: Admission note HPI 49 y/o female with extensive PMHX who presented from home due to RUE pain. Per history provided by the patient, since yesterday afternoon has been having worsening right arm pain associated with swelling at the level of the right side of the neck. Pateint denies any chest pain, SOB, nausea, vomiting, diarrhea or fever. On presentation to the ED patient was noted to be tachycardic which later normalized, BP stable, no evidence of fever, Doppler of RUE showing suspected partial DVT of the right subclavian vein. One dose of full dose anticoagulation given per ED and decision was given for admission. Patient seen and examined at the bedside, laying down in bed in no acute distress. ROS as above otherwise negative. Physical exam positive for RUE swelling at the level of the neck, hot to touch. Rest of the exam unremarkable. Patient reports that had hx of DVT in the past but was treated with a short course of AC injections in the hospital and then discharged on aspirin, this occur several years ago. Hospital course The patient was admitted to the hospital for right upper extremity suspected DVT. She was treated with full-dose Lovenox with fair response. She was evaluated by Dr. Leija from Hematology who recommended treatment with Eliquis for 1 month and to repeat ultrasound within the next few weeks. To arrange a follow-up visit with Dr. Leija To use Eliquis 10 mg twice daily for the next 5 days then 5 mg twice daily for a month Time Spent with Patient Time attestation: Total time spent providing and/or coordinating discharge services: Physical Exam Vital Signs: Vital Signs: Last Vital Signs Temp 98.2 F 05/15/20 15:19 Pulse 91 05/15/20 15:19 Resp 18 05/15/20 15:19 BP 123/75 05/15/20 15:19 Pulse Ox 95 05/15/20 15:19 Body Mass Index 40.2 Constitutional : Alert, oriented, not in distress Neck : Normal inspection, Supple Cardiovascular : RRR, S1 S2, no lower extremity edema Respiratory : Good bilateral air entry, no crackles, wheezes or rhonchi Gastrointestinal: soft, lax, Normal bowel sounds, Non tender Skin : Warm/Dry, No rash Neurological : Alert & oriented x3, No focal deficit DS: Data Data Completed and Pending Labs on day of discharge: 05/13/20 22:51 US venous duplex UE RT Stat 05/13/20 23:09 Add Laboratory Test Stat 05/13/20 23:13 Basic Metabolic Panel Stat Complete Blood Count Auto Diff Stat D Dimer Stat Hold Lt Blue - Possible Coag Stat Partial Thromboplastin Time Stat Prothrombin Time INR Stat UA CC w/rflx Micro + Cult Stat 05/14/20 00:54 Enoxaparin Sodium [Lovenox] 95 mg SUBCUT ONCE ONE 05/14/20 01:05 Consult Rx Perform Med Rec 1 each MISCELLANE ONCE PRN 05/14/20 01:09 Add Laboratory Test Stat 05/14/20 02:42 COVID-19 ID NOW ([place]) Stat 05/14/20 03:21 Magnesium Hydrox/Alum Hydrox [Maalox] 15 ml PO ONCE ONE Morphine Sulfate 1 mg IVPUSH ONCE ONE 05/14/20 03:54 Transfer Order Routine 05/14/20 11:41 LORazepam [Ativan] 1 mg PO ONCE ONE 05/14/20 14:28 IV insert/maintain Q4HR Intake and Output QSHIFTE 05/14/20 15:19 Basic Metabolic Panel Routine Complete Blood Count Auto Diff Routine 05/15/20 05:21 Basic Metabolic Panel DAILY@0600 05/15/20 05:22 Complete Blood Count no Diff DAILY@0600 Laboratory Last Values WBC 6.6 X10*3/uL (4.8-10.8) 05/15/20 05:22 RBC 4.36 X10*6/uL (4.20-5.50) 05/15/20 05:22 Hgb 13.4 g/dl (12.0-16.0) 05/15/20 05:22 Hct 40.5 % (37-47) 05/15/20 05:22 MCV 92.9 fL (80-98) 05/15/20 05:22 MCH 30.7 pg (27.0-33.0) 05/15/20 05:22 MCHC 33.1 g/dl (31.0-35.0) 05/15/20 05:22 RDW 13.3 % (11.0-16.0) 05/15/20 05:22 Plt Count 282 X10*3/uL (160-400) 05/15/20 05:22 MPV 10.9 fL (9.4-12.3) 05/15/20 05:22 Immature Gran % (Auto) 0.2 % (0.0-0.4) 05/14/20 15:19 Neut % (Auto) 47.1 % (45-73) 05/14/20 15:19 Lymph % (Auto) 44.3 % (20-40) H 05/14/20 15:19 [place] % (Auto) 7.3 % (2-11) 05/14/20 15:19 Eos % (Auto) 0.8 % (0-4) 05/14/20 15:19 Baso % (Auto) 0.3 % (0-2) 05/14/20 15:19 Lymph # (Auto) 2.6 X10*3/uL (1.2-4.9) 05/14/20 15:19 [place] # (Auto) 0.4 X10*3/uL (0.1-1.2) 05/14/20 15:19 Eos # (Auto) 0.1 X10*3/uL (0.0-0.4) 05/14/20 15:19 Baso # (Auto) 0.0 X10*3/uL (0.0-0.2) 05/14/20 15:19 Abs Immat Gran (auto) 0.01 X10*3/uL (0.00-0.03) 05/14/20 15:19 Absolute Neuts (auto) 2.8 X10*3/uL (2.0-8.3) 05/14/20 15:19 Absolute Nucleated RBC 0.000 X10*3/uL (0.0-0.012) 05/15/20 05:22 Nucleated RBC % (auto) 0.0 /100WBC (0.0-0.2) 05/15/20 05:22 PT 12.2 SEC (10.8-13.0) 05/13/20 23:13 INR 1.0 (0.9-1.1) 05/13/20 23:13 APTT 37.9 SEC (24.1-38.0) 05/13/20 23:13 D-Dimer < 200 NG/ML 05/13/20 23:13 Antithrombin III Activ 100 05/14/20 15:19 Hold Blue Top SEE NOTE 05/13/20 23:13 Sodium 139 mmol/L (135-145) 05/15/20 05:21 Potassium 4.3 mmol/l (3.3-5.1) 05/15/20 05:21 Chloride 104 mmol/L (96-108) 05/15/20 05:21 Carbon Dioxide 26 mmol/L (22-29) 05/15/20 05:21 Anion Gap 13 (12-20) 05/15/20 05:21 BUN 15 mg/dL (9-16) 05/15/20 05:21 Creatinine 0.95 mg/dL (0.5-1.4) 05/15/20 05:21 Estim Creat Clear Calc 73.9 05/15/20 05:21 Estimated GFR > 60 05/15/20 05:21 Random Glucose 98 mg/dL (60-115) 05/15/20 05:21 Calcium 9.4 mg/dL (8.4-10.2) 05/15/20 05:21 Urine Color YELLOW 05/13/20 23:13 Urine Appearance CLEAR 05/13/20 23:13 Urine pH 7.5 (5.0-8.0) 05/13/20 23:13 Ur Specific [place] 1.025 (1.005-1.025) 05/13/20 23:13 Urine Protein NEG MG/DL (NEG-TRACE) 05/13/20 23:13 Urine Glucose (UA) NEG MG/DL (NEG) 05/13/20 23:13 Urine Ketones NEG MG/DL (NEG) 05/13/20 23:13 Urine Blood NEG (NEG) 05/13/20 23:13 Urine Nitrite NEG (NEG) 05/13/20 23:13 Ur Leukocyte Esterase NEG (NEG) 05/13/20 23:13 COVID-19 (MIERYA) Negative (Negative) 05/14/20 02:42 COVID-19 Clin Com See Note 05/14/20 02:42 Discharge Plan Discharge Patient Disposition: Home, Self-Care Referrals: Ava Yap DO [Primary Care Provider] - Discharge Medications: New Eliquis 5 mg tablet See Rx Instructions .ROUTE .COMPLEX Qty: 80 RF: 0 Continued fenofibrate 54 mg tablet 54 mg PO DAILY 30 Days Qty: 30 RF: 5 albuterol sulfate 90 mcg/actuation aerosol powdr breath activated 1 inh inhalation Q4-6H PRN (Reason: Gastric Reflux) RF: 0 lorazepam [Ativan] 2 mg tablet 2 mg PO BEDTIME PRN (Reason: Anxiety) RF: 0 Flovent HFA 110 mcg/actuation HFA aerosol inhaler 1 puff inhalation BID RF: 0 zolpidem [Ambien] 10 mg tablet 10 mg PO BEDTIME PRN (Reason: Anxiety) RF: 0 aspirin [Adult Low Dose Aspirin] 81 mg tablet,delayed release (DR/EC) 81 mg PO DAILY RF: 0 cholecalciferol (vitamin D3) 25 mcg (1,000 unit) capsule 25 mcg PO DAILY RF: 0 rosuvastatin [Crestor] 10 mg tablet 10 mg PO DAILY RF: 0 methocarbamol 500 mg tablet 500 mg PO QID RF: 0 gabapentin [Neurontin] 400 mg capsule 400 mg PO DAILY RF: 0 pantoprazole [Protonix] 40 mg tablet,delayed release (DR/EC) 40 mg PO DAILY RF: 0 docusate sodium [Colace] 100 mg capsule 100 mg PO DAILY RF: 0 ezetimibe [Zetia] 10 mg tablet 10 mg PO DAILY RF: 0 amlodipine [Norvasc] 5 mg tablet 5 mg PO DAILY RF: 0 Discharge Orders: Discharge Order (Routine); Ordered 05/15/20 Ordered By: Stephen Ortiz Diet: advance to usual diet Activity on Discharge: As tolerated Visit Report Forms: Patient Portal Discharge page Care Plan Goals: Read below Health Concerns: Read below Plan of Treatment: For evaluation of right upper extremity pain. An ultrasound was concerning for possible clot. You were treated with blood thinners with fair response. You were evaluated by document control coordinator Dr. Leija who recommended treatment with blood thinners for total of 1 month. To use Eliquis at time of discharge 10 mg twice daily for 5 days and then Eliquis 5 mg daily twice daily for a month Please call Dr. Leija office at [phone] for an appointment within the next week or 2 to repeat ultrasound
[2020-06-03 15:48] LABS: Anti-Thrombin III Activity 100 % normal (80-135); Protein C Activity 199 % (70-180); Protein S Activity rflx Tot&Fr 118 % (60-140)
== END 2020-05-15 16:30 | disposition home or self-care (01) | DRG 197 ==
LOC: HO.ED 05-14 07:34 → HO.IMC 05-14 12:14
PROVIDERS: Emergency Medicine; Admitting Provider Internal Medicine; Emergency Provider Student in an Organized Health Care Education/Training Program; PCP Family Medicine; Visit Provider Student in an Organized Health Care Education/Training Program
DX: I82.621 Acute embolism and thrombosis of deep veins of right upper extremity (principal); Z68.41 Body mass index [BMI] 40.0-44.9, adult; E66.9 Obesity, unspecified; E78.5 Hyperlipidemia, unspecified; I25.10 Atherosclerotic heart disease of native coronary artery without angina pectoris; K21.9 Gastro-esophageal reflux disease without esophagitis; Z86.718 Personal history of other venous thrombosis and embolism; Z20.828 Contact with and (suspected) exposure to other viral communicable diseases; Z79.82 Long term (current) use of aspirin; Z79.899 Other long term (current) drug therapy
CPT/HCPCS: 36415; 80048; 81003; 81241; 85025; 85027; 85300; 85302; 85303; 85305; 85306; 85379; 85610; 85730; 87635; 93971; 94660; 96372; 99285; J1650; J2270

== ENCOUNTER 2020-05-18 11:56 | Emergency (ER) | payer MEDICAID, SELFPAY ==
--- NOTE | 2020-05-18 12:15 | PC.NURSE ---
EKG DONE AT 1216
--- NOTE | 2020-05-18 12:23 | ED.CHESTPAIN ---
HPI - Chest Pain General Chief Complaint: Chest Pain Stated Complaint: chest pain Time Seen by Provider: 05/18/20 12:23 Source: patient Mode of arrival: ambulatory Limitations: language barrier History of Present Illness HPI narrative: Patient recently admitted for clot in the left subclavian. Patient states that she is now having shortness of breath. Chest pain and shortness of breath started last night MD complaint: chest pain Onset (ago): day(s) Timing of current episode: episodic Onset: during rest Pain location: substernal Risk Factors Coronary artery disease risk factors: hyperlipidemia and hypertension Related Data Home Medications Medication Instructions Recorded Confirmed albuterol sulfate 90 mcg/actuation 1 inh INHALATION Q4-6H PRN 03/26/20 05/14/20 breath activated powder inhaler amlodipine 5 mg tablet 5 mg PO DAILY 03/26/20 05/14/20 aspirin 81 mg tablet,delayed 81 mg PO DAILY 03/26/20 05/14/20 release cholecalciferol (vitamin D3) 25 25 mcg PO DAILY 03/26/20 05/14/20 mcg (1,000 unit) capsule docusate sodium 100 mg capsule 100 mg PO DAILY 03/26/20 05/14/20 ezetimibe 10 mg tablet 10 mg PO DAILY 03/26/20 05/14/20 fluticasone propionate 110 1 puff INHALATION BID 03/26/20 05/14/20 mcg/actuation HFA aerosol inhaler gabapentin 400 mg capsule 400 mg PO DAILY 03/26/20 05/14/20 lorazepam 2 mg tablet 2 mg PO BEDTIME PRN 03/26/20 05/14/20 methocarbamol 500 mg tablet 500 mg PO QID 03/26/20 05/14/20 pantoprazole 40 mg tablet,delayed 40 mg PO DAILY 03/26/20 05/14/20 release rosuvastatin 10 mg tablet 10 mg PO DAILY 03/26/20 05/14/20 zolpidem 10 mg tablet 10 mg PO BEDTIME PRN 03/26/20 05/14/20 Previous Rx's Medication Instructions Recorded fenofibrate 54 mg tablet 54 mg PO DAILY 30 Days #30 tab 03/27/20 apixaban [Eliquis] See Rx Instructions .ROUTE 05/15/20 .COMPLEX #80 tab Allergies Allergy/AdvReac Type Severity Reaction Status Date / Time loratadine [From CLARITIN] Allergy Mild CHILLS AND Verified 05/13/20 21:24 DIFF BREATHING Review of Systems Constitutional: Constitutional: Reports no additional constitutional complaints Eyes: Eyes: Reports no additional eye complaints ENT: Denies dizziness Cardiovascular: Cardiovascular: Reports no additional cardiovascular complaints Respiratory: Respiratory: Reports as per HPI Gastrointestinal: Gastrointestinal: Reports no additional gastrointestinal complaints Genitourinary: Genitourinary: Reports no additional female genitourinary complaints Musculoskeletal: Musculoskeletal: Reports no additional musculoskeletal complaints Integumentary/Breasts: Skin/Breast: Denies rash Neurologic: Reports system reviewed and no additional complaints, except as documented, Denies dizziness and Denies Sensory deficit (Neuro) Psychiatric: Psychiatric: Denies anxiety [facility] Past Medical History Medical History Acid reflux Coronary artery disease Fatty liver Gall bladder polyp Hyperlipidemia Obesity (BMI 30-39.9) Surgical History History of cardiac cath Family History Family History Paternal Grandfather No problems noted. Father History of cancer Mother No problems noted. Social History Social History Household Members: Significant Other and Children Housing: Apartment Alcohol intake: never Smoking Status: Never smoker Years Smoked: Prior smoker, no alcohol or drug use Second Hand Smoke Exposure: No Use of substances other than those prescribed or required for medical reasons: No Advance Directives: No Advance Directives Information Provided: No service: No Physical Exam Vital Signs: Vital Signs: Last Vital Signs Temp 97.5 F 05/18/20 12:31 Pulse 86 05/18/20 14:00 Resp 18 05/18/20 14:00 BP 130/64 05/18/20 14:00 Pulse Ox 99 05/18/20 14:00 Body Mass Index 40.2 Const: Other: anxious and tearful Nutritional Appearance: obese Orientation/consciousness: oriented to person and patient oriented x3 Limitations: no limitations HENMT: Head: Yes normal to inspection Ears: external ears normal General nose exam: Normal external nose present Mouth: Normal oral and palatal mucosa present and oropharynx normal Throat: Yes posterior oropharynx normal Eyes: General: appearance normal, both eyes and all related structures Neck: Other: supple Neck: Yes normal visual inspection Chest: Chest palpation & inspection: normal inspection of the chest Resp: Auscultation: clear to auscultation bilaterally Cardio: Jugular venous distension: no JVD Rate: regular rate Rhythm: regular rhythm Heart sounds: S1 normal heart sound present and S2 normal heart sound present GI: Inspection: Yes normal to inspection Palpation (GI): Soft to palpation, nontender and No hepatosplenomegaly present Auscultation: normal bowel sounds : General: Yes no CVA tenderness Back/Spine/Pelvis: Back: no CVA tenderness Skin: General skin exam: no rashes or lesions noted Neuro: General: oriented to person and patient oriented x3 Cranial nerves: Yes CN's II-XII intact bilaterally Motor exam (neuro): 5/5 motor strength present throughout Sensory Exam: No Sensory deficit (Neuro) Extrem: General: Yes normal to inspection Psych: Appearance: grossly normal MDM - Chest Pain MDM Narrative Medical decision making narrative: patient with multiple medical problems and recent subclavian DVT, currently with no evidence of PE or cardiac ischemia. Will dc home Differential Diagnosis Differential diagnosis: Likely chest pain Differential diagnosis: pulmonary embolus, cardiac ischemia Lab Data Result diagrams: 05/18/20 13:03 05/18/20 13:03 Labs: Lab Results 05/18/20 05/18/20 05/18/20 Range/Units 13:03 13:03 13:03 WBC 6.5 (4.8-10.8) X10*3/uL RBC 4.30 (4.20-5.50) X10*6/uL Hgb 13.2 (12.0-16.0) g/dl Hct 40.2 (37-47) % MCV 93.5 (80-98) fL MCH 30.7 (27.0-33.0) pg MCHC 32.8 (31.0-35.0) g/dl RDW 13.0 (11.0-16.0) % Plt Count 276 (160-400) X10*3/uL MPV 10.8 (9.4-12.3) fL Immature Gran % (Auto) 0.3 (0.0-0.4) % Neut % (Auto) 43.2 L (45-73) % Lymph % (Auto) 46.2 H (20-40) % [place] % (Auto) 9.0 (2-11) % Eos % (Auto) 1.1 (0-4) % Baso % (Auto) 0.2 (0-2) % Lymph # (Auto) 3.0 (1.2-4.9) X10*3/uL [place] # (Auto) 0.6 (0.1-1.2) X10*3/uL Eos # (Auto) 0.1 (0.0-0.4) X10*3/uL Baso # (Auto) 0.0 (0.0-0.2) X10*3/uL Abs Immat Gran (auto) 0.02 (0.00-0.03) X10*3/uL Absolute Neuts (auto) 2.8 (2.0-8.3) X10*3/uL Absolute Nucleated RBC 0.000 (0.0-0.012) X10*3/uL Nucleated RBC % (auto) 0.0 (0.0-0.2) /100WBC Sodium 138 (135-145) mmol/L Potassium 3.8 (3.3-5.1) mmol/l Chloride 105 (96-108) mmol/L Carbon Dioxide 25 (22-29) mmol/L Anion Gap 12 (12-20) BUN 13 (9-16) mg/dL Creatinine 0.84 (0.5-1.4) mg/dL Estim Creat Clear Calc 83.6 Estimated GFR > 60 Random Glucose 101 (60-115) mg/dL Calcium 10.0 D (8.4-10.2) mg/dL Troponin I High Sens < 3.5 (<3.5-17.0) ng/L ECG Data ECG #1: Attestation: I personally reviewed and interpreted this ECG as follows: Interpretation: normal sinus rate of [address] or twave changes Discharge Plan Discharge Clinical Impression: Chest pain Qualifiers: Chest pain type: chest pain on breathing Qualified Code(s): R07.1 - Chest pain on breathing Patient Disposition: Home, Self-Care Prescriptions: No Action fenofibrate 54 mg tablet 54 mg PO DAILY 30 Days Qty: 30 RF: 5 Eliquis 5 mg tablet See Rx Instructions .ROUTE .COMPLEX Qty: 80 RF: 0 albuterol sulfate 90 mcg/actuation aerosol powdr breath activated 1 inh inhalation Q4-6H PRN (Reason: Gastric Reflux) RF: 0 lorazepam [Ativan] 2 mg tablet 2 mg PO BEDTIME PRN (Reason: Anxiety) RF: 0 Flovent HFA 110 mcg/actuation HFA aerosol inhaler 1 puff inhalation BID RF: 0 zolpidem [Ambien] 10 mg tablet 10 mg PO BEDTIME PRN (Reason: Anxiety) RF: 0 aspirin [Adult Low Dose Aspirin] 81 mg tablet,delayed release (DR/EC) 81 mg PO DAILY RF: 0 cholecalciferol (vitamin D3) 25 mcg (1,000 unit) capsule 25 mcg PO DAILY RF: 0 rosuvastatin [Crestor] 10 mg tablet 10 mg PO DAILY RF: 0 methocarbamol 500 mg tablet 500 mg PO QID RF: 0 gabapentin [Neurontin] 400 mg capsule 400 mg PO DAILY RF: 0 pantoprazole [Protonix] 40 mg tablet,delayed release (DR/EC) 40 mg PO DAILY RF: 0 docusate sodium [Colace] 100 mg capsule 100 mg PO DAILY RF: 0 ezetimibe [Zetia] 10 mg tablet 10 mg PO DAILY RF: 0 amlodipine [Norvasc] 5 mg tablet 5 mg PO DAILY RF: 0 Referrals: Ava Yap DO [Primary Care Provider] - 2 days
[2020-05-18 12:31] VITALS: BP 116/76; PULSE 74; RESP 18; TEMP 36.4; O2SAT 98; BMI 40.2
--- NOTE | 2020-05-18 12:36 | ECG_ITS ---
Test Reason : CHEST PAIN Blood Pressure : / mmHG Vent. Rate : 075 BPM Atrial Rate : 075 BPM P-R Int : 132 ms QRS Dur : 084 ms QT Int : 374 ms P-R-T Axes : 065 000 073 degrees QTc Int : 417 ms Normal sinus rhythm with sinus arrhythmia Inferior infarct (cited on or before 21-FEB-2020) Nonspecific ST abnormality Lateral leads Abnormal ECG When compared with ECG of 22-FEB-2020 18:42, No significant change was found Referred By: Catarino Garland Electronically Signed By:CARLY FLEMING MD
--- NOTE | 2020-05-18 12:36 | CT_ITS ---
EXAMINATION: CT ANGIOGRAM OF THE CHEST WITH AND WITHOUT CONTRAST (CT PULMONARY ANGIOGRAM FOR PE) CLINICAL INFORMATION: Reason for Exam shortness of breath, right arm DVT COMPARISON: Previous chest CT March 2020 and chest x-ray January 2020 TECHNIQUE: Prior to contrast administration, noncontrast localization images were obtained. Subsequently, multidetector volumetric imaging was performed from the thoracic inlet to below the diaphragms following the administration of 65 mL Omnipaque 350 intravenous contrast. No contrast reaction reported Sagittal, coronal, and MIP oblique sagittal reformatted images were obtained on the CT workstation, uploaded to PACS, and reviewed. This CT examination was performed using dose optimization techniques as appropriate, variously including the following: *Automated exposure control *Adjustment of mA and/or kV according to patient size (this includes techniques or standardized protocols for targeted exams where dose is matched to indication/reason for exam; i.e. extremities or head) *Use of iterative reconstruction technique Total exam dose-length product 399 mGy-cm FINDINGS: QUALITY OF STUDY/CONTRAST BOLUS: Satisfactory. PULMONARY ARTERIES: No central or segmental pulmonary emboli. THORACIC AORTA: No aneurysm or dissection. LUNG: There are bilateral calcified pulmonary nodules that are stable. Largest pulmonary nodules measure 5 mm in the lower lobes. PLEURA: No pleural effusion or pneumothorax. MEDIASTINUM: Normal heart size. No pericardial effusion. No hilar or mediastinal lymphadenopathy. No evidence of septal bowing or right heart strain. CHEST WALL/AXILLA: No axillary or internal mammary lymphadenopathy. OSSEOUS STRUCTURES: No acute or suspicious osseous abnormality. There are degenerative changes of the spine. UPPER ABDOMEN: There may be diverticulosis of the colon. No reflux of contrast into the hepatic veins to suggest elevated right heart pressures. CT/CT angio chest PE protocol IMPRESSION: No evidence of pulmonary embolism. VTE: negative
[2020-05-18 13:09] LABS: MANUAL DIFF FLAG NO
[2020-05-18 13:11] LABS: Basophils Percent Auto 0.2 % (0-2); Eosinophils Absolute Auto 0.1 X10*3/uL (0.0-0.4); Eosinophils Percent Auto 1.1 % (0-4); Hematocrit 40.2 % (37-47); Hemoglobin 13.2 g/dl (12.0-16.0); Imm Gran Abs Auto 0.02 X10*3/uL (0.00-0.03); Imm Gran Pct Auto 0.3 % (0.0-0.4); Lymphocytes Percent Auto 46.2 % (20-40); Mean Corpuscular HGB Conc 32.8 g/dl (31.0-35.0); Mean Corpuscular Hemoglobin 30.7 pg (27.0-33.0); Mean Corpuscular Volume 93.5 fL (80-98); Mean Platelet Volume 10.8 fL (9.4-12.3); Monocytes Absolute Auto 0.6 X10*3/uL (0.1-1.2); Neutrophils Absolute Auto 2.8 X10*3/uL (2.0-8.3); Neutrophils Percent Auto 43.2 % (45-73); Platelet Count 276 X10*3/uL (160-400); White Blood Count 6.5 X10*3/uL (4.8-10.8)
[2020-05-18 13:41] LABS: Anion Gap 12 (12-20); Blood Urea Nitrogen 13 mg/dL (9-16); Carbon Dioxide 25 mmol/L (22-29); Chloride 105 mmol/L (96-108); Creatinine Clr Calc Pharmacy 83.6; Estimated Glomerular Filt Rate > 60; Glucose Random 101 mg/dL (60-115); Potassium 3.8 mmol/l (3.3-5.1); Sodium 138 mmol/L (135-145)
[2020-05-18 13:48] LABS: Troponin-I High Sensitivity < 3.5 ng/L (<3.5-17.0)
[2020-05-18 14:00] VITALS: BP 130/64; PULSE 86; RESP 18; O2SAT 99
--- NOTE | 2020-05-18 14:16 | PC.NURSE ---
Patient arrives reporting chest, arm, and neck pain. Admitted on Monday for a clot in right subclavian. Reports pain began today. Taking Eliquis. Respirations regular and even. Skin PWD. EKG obtained at bedside. IV established by Vida QUINONEZ. 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
[2020-05-18] MEDS: iohexoL 350 MG/ML 100 ML INFUS..BTL 65 ML IV (14:31)
== END 2020-05-18 15:23 | disposition home or self-care (01) ==
PROVIDERS: Emergency Provider Emergency Medicine; PCP Family Medicine
DX: R07.1 Chest pain on breathing (principal); R06.02 Shortness of breath; Z79.899 Other long term (current) drug therapy
CPT/HCPCS: 36415; 71275; 80048; 84484; 85025; 93005; 99284; 99285; Q9967

== ENCOUNTER 2020-05-21 20:47 | Emergency (ER) | payer MEDICAID, SELFPAY ==
[2020-05-21 20:55] VITALS: BP 139/85; PULSE 108; RESP 15; TEMP 36.8; O2SAT 100; BMI 40.2
[2020-05-21 21:01] VITALS: BP 139/85; PULSE 91; PULSE 99; RESP 15; TEMP 36.8; O2SAT 99
--- NOTE | 2020-05-21 21:14 | ECG_ITS ---
Test Reason : CHEST PAIN Blood Pressure : / mmHG Vent. Rate : 095 BPM Atrial Rate : 095 BPM P-R Int : 124 ms QRS Dur : 074 ms QT Int : 340 ms P-R-T Axes : 055 004 115 degrees QTc Int : 427 ms Sinus rhythm with marked sinus arrhythmia Inferior infarct (cited on or before 21-FEB-2020) Abnormal ECG When compared with ECG of 18-MAY-2020 12:13, Heart rate has increased Referred By: David Gold Electronically Signed By:CARLY FLEMING MD
--- NOTE | 2020-05-21 21:14 | XR_ITS ---
EXAMINATION: XR CHEST CLINICAL INFORMATION: Chest pain COMPARISON: Chest CTA 05/18/2020 and chest x-ray January 2020. TECHNIQUE: Frontal view of the chest was obtained. FINDINGS: No significant abnormality is noted involving the heart, lungs, mediastinum, bony thorax or soft tissues. XR/XR chest 1V IMPRESSION: Unremarkable examination.
--- NOTE | 2020-05-21 21:31 | ED.CHESTPAIN ---
HPI - Chest Pain General Chief Complaint: Chest Pain Stated Complaint: chest pain Time Seen by Provider: 05/21/20 21:10 Source: patient Mode of arrival: ambulatory History of Present Illness HPI narrative: 49-year-old female with recent diagnosis of blood clot to right subclavian main, on Eliquis, then return to the emergency department 2 days ago with chest pain and discharge. Had a CTA of the chest 2 days ago which was negative for PE. Now here for central chest pain nonradiating, no shortness of breath, no nausea vomiting, no diaphoresis. Denies dizziness. However patient is very anxious saying that she does not want to and crying in the room. Patient states she is still taking her medication MD complaint: chest pain Onset (ago): hour(s) (2) Onset: during rest Severity: moderate Quality: tightness Relieving factors: nothing Related Data Home Medications Medication Instructions Recorded Confirmed albuterol sulfate 90 mcg/actuation 1 inh INHALATION Q4-6H PRN 03/26/20 05/14/20 breath activated powder inhaler amlodipine 5 mg tablet 5 mg PO DAILY 03/26/20 05/14/20 aspirin 81 mg tablet,delayed 81 mg PO DAILY 03/26/20 05/14/20 release cholecalciferol (vitamin D3) 25 25 mcg PO DAILY 03/26/20 05/14/20 mcg (1,000 unit) capsule docusate sodium 100 mg capsule 100 mg PO DAILY PRN 03/26/20 05/14/20 ezetimibe 10 mg tablet 10 mg PO DAILY 03/26/20 05/14/20 fluticasone propionate 110 1 puff INHALATION BID 03/26/20 05/14/20 mcg/actuation HFA aerosol inhaler gabapentin 400 mg capsule 400 mg PO DAILY 03/26/20 05/14/20 lorazepam 2 mg tablet 2 mg PO BEDTIME PRN 03/26/20 05/14/20 methocarbamol 500 mg tablet 500 mg PO QID PRN 03/26/20 05/14/20 pantoprazole 40 mg tablet,delayed 40 mg PO DAILY 03/26/20 05/14/20 release rosuvastatin 10 mg tablet 10 mg PO DAILY 03/26/20 05/14/20 zolpidem 10 mg tablet 5 mg PO BEDTIME PRN 03/26/20 05/14/20 tramadol 50 mg PO BID PRN 05/20/20 05/20/20 Previous Rx's Medication Instructions Recorded fenofibrate 54 mg tablet 54 mg PO DAILY 30 Days #30 tab 03/27/20 apixaban [Eliquis] See Rx Instructions .ROUTE 05/15/20 .COMPLEX #80 tab Allergies Allergy/AdvReac Type Severity Reaction Status Date / Time loratadine [From CLARITIN] Allergy Mild CHILLS AND Verified 05/21/20 21:06 DIFF BREATHING Review of Systems Review of Systems: Constitutional : No Weight loss, No Fever, No Chills, No Night Sweats, No Fatigue, No Malaise ENT/Mouth : No Hearing loss, No Ear Pain, No Nasal Congestion, No Sinus Pain, No Hoarseness, No sore throat, No Rhinorrhea, No Swallowing Difficulty Eyes: No Eye Pain, No Swelling, No Redness, No Foreign Body, No Discharge, No Vision Changes Cardiovascular : Positive Chest Pain, No SOB, No Dyspnea on Exertion, No Orthopnea, No Edema, No Palpitations Respiratory : No Cough, No Sputum, No Wheezing, No Smoke Exposure, No Dyspnea Gastrointestinal : No Nausea, No Vomiting, No Diarrhea, No Constipation, No abdominal Pain, No Hematochezia, No Melena Genitourinary : no irregular bleeding, No Dysuria, No Urinary Frequency, No Hematuria, No Urinary Incontinence, No Urgency, No Flank Pain, No Urinary Flow Changes, No Hesitancy Musculoskeletal : No joint pain, No Myalgias, No Joint Swelling Skin : No Skin Lesions, No rash Neuro : No Weakness, No Numbness, No Paresthesias, No Loss of Consciousness, No Dizziness, No Headache Psych : No Anxiety/Panic, No Depression, No SI/HI/AH/VH, No Social Issues, Heme/Lymph: No Bruising, No Bleeding,No Lymphadenopathy Endocrine : No Polyuria, No Polydipsia, No Temperature Intolerance [facility] Past Medical History Medical History Acid reflux Coronary artery disease Fatty liver Fibromyalgia Gall bladder polyp Hyperlipidemia Hypertension Obesity (BMI 30-39.9) Sleep apnea Surgical History (Updated 05/15/20 @ 14:58 by America Leija MD) History of cardiac cath Family History Family History Paternal Grandfather No problems noted. Father History of cancer Lung cancer Mother No problems noted. Social History Social History Household Members: Significant Other and Children Housing: Apartment Alcohol intake: never Smoking Status: Never smoker Years Smoked: Prior smoker, no alcohol or drug use Smoked in Last 30 Days: No Second Hand Smoke Exposure: No Use of substances other than those prescribed or required for medical reasons: No Advance Directives: No Advance Directives Information Provided: No service: No Physical Exam Vital Signs: Vital Signs: Last Vital Signs Temp 99.3 F 05/21/20 21:54 Pulse 81 05/21/20 21:54 Resp 13 05/21/20 21:54 BP 152/82 H 05/21/20 21:54 Pulse Ox 99 05/21/20 21:54 Body Mass Index 40.2 Vital signs reviewed Pulse ox interpreted by me as normal. 99% room air Appearance: Alert. Oriented X3. No acute distress. Eyes: Pupils equal, round and reactive to light. ENT: Pharynx normal. Neck: Normal inspection. Neck supple. No lymph nodes noted. No crepitus CVS: Normal heart rate and rhythm. Pulses normal. Normal S1 and S2 Respiratory: No respiratory distress. Breath sounds normal. No Wheezing. No rales Abdomen: Soft and nontender. No rigidity. No distention. good BS x4 Skin: Skin warm and dry. Normal skin color. Normal skin turgor. Extremities: No lower extremity edema. Neurovascular intact to all extremities. No Lacerations. No Rash Neuro: Oriented X 3. No motor deficit. No sensory deficit. Moving all extermities. No slurred speech. Course Course Course Narrative: 49-year-old female highly anxious with chest pain. Patient was given 1 mg of IV Ativan awaiting test results. At discharge patient is feeling much better will discharge with follow-up I discussed the patient and the importance of continuing to take her Eliquis MDM - Chest Pain MDM Narrative Medical decision making narrative: 49-year-old female with chief complaint of chest pain here multiple times seen for the same. Recent CT of chest negative patient was diagnosed with a axillary venous clot. Patient on Eliquis. Troponin and BNP negative EKG negative no signs of saddle embolus Differential Diagnosis Differential diagnosis: Likely pneumothorax and st elevation myocardial infarction Differential diagnosis: Saddle pulmonary embolus Medical Records Data Attestation: I reviewed the patient's medical records. Medical records narrative: Patient with recent CT of the chest without PE seen here Lab Data Attestation: I reviewed the patient's lab results. Result diagrams: 05/21/20 21:05/21/20: Labs: Lab Results 05/21/20 05/21/20 05/21/20 Range/Units 21: 21: 21: WBC 8.6 (4.8-10.8) X10*3/uL RBC 4.27 (4.20-5.50) X10*6/uL Hgb 13.2 (12.0-16.0) g/dl Hct 39.0 (37-47) % MCV 91.3 (80-98) fL MCH 30.9 (27.0-33.0) pg MCHC 33.8 (31.0-35.0) g/dl RDW 12.8 (11.0-16.0) % Plt Count 285 (160-400) X10*3/uL MPV 10.8 (9.4-12.3) fL Immature Gran % (Auto) 0.2 (0.0-0.4) % Neut % (Auto) 51.0 (45-73) % Lymph % (Auto) 39.5 (20-40) % [place] % (Auto) 8.6 (2-11) % Eos % (Auto) 0.6 (0-4) % Baso % (Auto) 0.1 (0-2) % Lymph # (Auto) 3.4 (1.2-4.9) X10*3/uL [place] # (Auto) 0.7 (0.1-1.2) X10*3/uL Eos # (Auto) 0.1 (0.0-0.4) X10*3/uL Baso # (Auto) 0.0 (0.0-0.2) X10*3/uL Abs Immat Gran (auto) 0.02 (0.00-0.03) X10*3/uL Absolute Neuts (auto) 4.4 (2.0-8.3) X10*3/uL Absolute Nucleated RBC 0.000 (0.0-0.012) X10*3/uL Nucleated RBC % (auto) 0.0 (0.0-0.2) /100WBC Hold Blue Top Sodium 139 (135-145) mmol/L Potassium 3.9 (3.3-5.1) mmol/l Chloride 106 (96-108) mmol/L Carbon Dioxide 25 (22-29) mmol/L Anion Gap 12 (12-20) BUN 13 (9-16) mg/dL Creatinine 0.83 (0.5-1.4) mg/dL Estim Creat Clear Calc 84.6 Estimated GFR > 60 Random Glucose 124 H (60-115) mg/dL Calcium 9.6 (8.4-10.2) mg/dL Troponin I High Sens < 3.5 (<3.5-17.0) ng/L B-Natriuretic Peptide 11 (<100) pg/mL 05/21/20 Range/Units 21:26 WBC (4.8-10.8) X10*3/uL RBC (4.20-5.50) X10*6/uL Hgb (12.0-16.0) g/dl Hct (37-47) % MCV (80-98) fL MCH (27.0-33.0) pg MCHC (31.0-35.0) g/dl RDW (11.0-16.0) % Plt Count (160-400) X10*3/uL MPV (9.4-12.3) fL Immature Gran % (Auto) (0.0-0.4) % Neut % (Auto) (45-73) % Lymph % (Auto) (20-40) % [place] % (Auto) (2-11) % Eos % (Auto) (0-4) % Baso % (Auto) (0-2) % Lymph # (Auto) (1.2-4.9) X10*3/uL [place] # (Auto) (0.1-1.2) X10*3/uL Eos # (Auto) (0.0-0.4) X10*3/uL Baso # (Auto) (0.0-0.2) X10*3/uL Abs Immat Gran (auto) (0.00-0.03) X10*3/uL Absolute Neuts (auto) (2.0-8.3) X10*3/uL Absolute Nucleated RBC (0.0-0.012) X10*3/uL Nucleated RBC % (auto) (0.0-0.2) /100WBC Hold Blue Top SEE NOTE Sodium (135-145) mmol/L Potassium (3.3-5.1) mmol/l Chloride (96-108) mmol/L Carbon Dioxide (22-29) mmol/L Anion Gap (12-20) BUN (9-16) mg/dL Creatinine (0.5-1.4) mg/dL Estim Creat Clear Calc Estimated GFR Random Glucose (60-115) mg/dL Calcium (8.4-10.2) mg/dL Troponin I High Sens (<3.5-17.0) ng/L B-Natriuretic Peptide (<100) pg/mL ECG Data ECG #1: Attestation: I personally reviewed and interpreted this ECG as follows: Interpretation: Sinus rhythm at 95 beats per minute. Rightward axis. No heart strain. Normal ST-T segments Discharge Plan Discharge Clinical Impression: Anxiety Chest pain Qualifiers: Chest pain type: unspecified Qualified Code(s): R07.9 - Chest pain, unspecified Patient Disposition: Home, Self-Care Instructions: Generalized Anxiety Disorder (ED), Chest Wall Pain (ED) Additional Instructions: Thank you for visiting the emergency department today. If your symptoms worsen or do not resolve completely please return to the emergency department immediately or call 911. If you have any questions please call your primary care physician Prescriptions: No Action fenofibrate 54 mg tablet 54 mg PO DAILY 30 Days Qty: 30 RF: 5 Eliquis 5 mg tablet See Rx Instructions .ROUTE .COMPLEX Qty: 80 RF: 0 tramadol 50 mg Tablet 50 mg PO BID PRN (Reason: Pain) RF: 0 albuterol sulfate 90 mcg/actuation aerosol powdr breath activated 1 inh inhalation Q4-6H PRN (Reason: Gastric Reflux) RF: 0 lorazepam [Ativan] 2 mg tablet 2 mg PO BEDTIME PRN (Reason: Anxiety) RF: 0 Flovent HFA 110 mcg/actuation HFA aerosol inhaler 1 puff inhalation BID RF: 0 zolpidem [Ambien] 10 mg tablet 5 mg PO BEDTIME PRN (Reason: Anxiety) RF: 0 aspirin [Adult Low Dose Aspirin] 81 mg tablet,delayed release (DR/EC) 81 mg PO DAILY RF: 0 cholecalciferol (vitamin D3) 25 mcg (1,000 unit) capsule 25 mcg PO DAILY RF: 0 rosuvastatin [Crestor] 10 mg tablet 10 mg PO DAILY RF: 0 methocarbamol 500 mg tablet 500 mg PO QID PRN (Reason: Muscle Spasm) RF: 0 gabapentin [Neurontin] 400 mg capsule 400 mg PO DAILY RF: 0 pantoprazole [Protonix] 40 mg tablet,delayed release (DR/EC) 40 mg PO DAILY RF: 0 docusate sodium [Colace] 100 mg capsule 100 mg PO DAILY PRN (Reason: Constipation) RF: 0 ezetimibe [Zetia] 10 mg tablet 10 mg PO DAILY RF: 0 amlodipine [Norvasc] 5 mg tablet 5 mg PO DAILY RF: 0 Referrals: Ava Yap DO [Primary Care Provider] - 2 days
[2020-05-21 21:32] LABS: Basophils Percent Auto 0.1 % (0-2); Eosinophils Absolute Auto 0.1 X10*3/uL (0.0-0.4); Eosinophils Percent Auto 0.6 % (0-4); Hemoglobin 13.2 g/dl (12.0-16.0); Imm Gran Abs Auto 0.02 X10*3/uL (0.00-0.03); Imm Gran Pct Auto 0.2 % (0.0-0.4); Lymphocytes Absolute Auto 3.4 X10*3/uL (1.2-4.9); Lymphocytes Percent Auto 39.5 % (20-40); Mean Corpuscular HGB Conc 33.8 g/dl (31.0-35.0); Mean Corpuscular Hemoglobin 30.9 pg (27.0-33.0); Mean Corpuscular Volume 91.3 fL (80-98); Mean Platelet Volume 10.8 fL (9.4-12.3); Monocytes Absolute Auto 0.7 X10*3/uL (0.1-1.2); Monocytes Percent Auto 8.6 % (2-11); Neutrophils Absolute Auto 4.4 X10*3/uL (2.0-8.3); Platelet Count 285 X10*3/uL (160-400); Red Blood Count 4.27 X10*6/uL (4.20-5.50); Red Cell Distribution Width 12.8 % (11.0-16.0); White Blood Count 8.6 X10*3/uL (4.8-10.8)
[2020-05-21 21:33] LABS: MANUAL DIFF FLAG NO
[2020-05-21 21:54] VITALS: BP 152/82; PULSE 81; RESP 13; TEMP 37.4; O2SAT 99
[2020-05-21 21:54] LABS: Anion Gap 12 (12-20); Blood Urea Nitrogen 13 mg/dL (9-16); Calcium 9.6 mg/dL (8.4-10.2); Carbon Dioxide 25 mmol/L (22-29); Chloride 106 mmol/L (96-108); Creatinine Clr Calc Pharmacy 84.6; Estimated Glomerular Filt Rate > 60; Glucose Random 124 mg/dL (60-115); Potassium 3.9 mmol/l (3.3-5.1); Sodium 139 mmol/L (135-145)
[2020-05-21] MEDS: LORazepam 2 MG/ML VIAL 1 MG IVPUSH (21:56)
[2020-05-21 22:02] LABS: B Type Natriuretic Peptide 11 pg/mL (<100)
[2020-05-21 22:31] LABS: Troponin-I High Sensitivity < 3.5 ng/L (<3.5-17.0)
== END 2020-05-21 23:08 | disposition home or self-care (01) ==
PROVIDERS: Emergency Provider Emergency Medicine; PCP Family Medicine
DX: R07.9 Chest pain, unspecified (principal); F41.1 Generalized anxiety disorder; F43.0 Acute stress reaction; I10 Essential (primary) hypertension; I25.10 Atherosclerotic heart disease of native coronary artery without angina pectoris; Z79.899 Other long term (current) drug therapy
CPT/HCPCS: 36415; 71045; 80048; 83880; 84484; 85025; 93005; 96374; 99284; 99285; J2060

== ENCOUNTER 2020-05-29 14:05 | Outpatient (REF) | payer MEDICAID, SELFPAY ==
--- NOTE | 2020-05-29 14:06 | XR_ITS ---
EXAMINATION: XR KNEE, RIGHT XR KNEE, LEFT XR KNEES, BILATERAL CLINICAL INFORMATION: Knee pain. COMPARISON: None TECHNIQUE: AP standing views of both knees and lateral and sunrise views of both knees. FINDINGS: Three views of the right knee do not demonstrate any evidence of acute fracture or dislocation. The joint spaces are maintained. No effusion identified. Small patellar spur at site of insertion of the quadriceps tendon. There is minimal spurring undersurface of the patella. Three views of the left knee do not demonstrate any evidence of acute fracture or dislocation. No effusion identified. Joint spaces are maintained. There is minimal spurring seen about the lateral facet of the patella. Small patella spur at site of insertion of the quadriceps tendon is noted. XR/XR knee RT 2V IMPRESSION: Mild patellofemoral joint degenerative change bilaterally.
--- NOTE | 2020-05-29 14:06 | XR_ITS ---
EXAMINATION: XR KNEE, RIGHT XR KNEE, LEFT XR KNEES, BILATERAL CLINICAL INFORMATION: Knee pain. COMPARISON: None TECHNIQUE: AP standing views of both knees and lateral and sunrise views of both knees. FINDINGS: Three views of the right knee do not demonstrate any evidence of acute fracture or dislocation. The joint spaces are maintained. No effusion identified. Small patellar spur at site of insertion of the quadriceps tendon. There is minimal spurring undersurface of the patella. Three views of the left knee do not demonstrate any evidence of acute fracture or dislocation. No effusion identified. Joint spaces are maintained. There is minimal spurring seen about the lateral facet of the patella. Small patella spur at site of insertion of the quadriceps tendon is noted. XR/XR knee standing BI IMPRESSION: Mild patellofemoral joint degenerative change bilaterally.
--- NOTE | 2020-05-29 14:06 | XR_ITS ---
EXAMINATION: XR KNEE, RIGHT XR KNEE, LEFT XR KNEES, BILATERAL CLINICAL INFORMATION: Knee pain. COMPARISON: None TECHNIQUE: AP standing views of both knees and lateral and sunrise views of both knees. FINDINGS: Three views of the right knee do not demonstrate any evidence of acute fracture or dislocation. The joint spaces are maintained. No effusion identified. Small patellar spur at site of insertion of the quadriceps tendon. There is minimal spurring undersurface of the patella. Three views of the left knee do not demonstrate any evidence of acute fracture or dislocation. No effusion identified. Joint spaces are maintained. There is minimal spurring seen about the lateral facet of the patella. Small patella spur at site of insertion of the quadriceps tendon is noted. XR/XR knee LT 2V IMPRESSION: Mild patellofemoral joint degenerative change bilaterally.
== END 2020-05-29 14:06 | disposition home or self-care (01) ==
LOC: HO.HOSX 14:05
PROVIDERS: Visit Provider Physician Assistant
DX: M25.561 Pain in right knee (principal); M25.562 Pain in left knee
CPT/HCPCS: 73560; 73565; 99212; J1020

== ENCOUNTER 2020-06-03 10:37 | Outpatient (REF) | payer MEDICAID, SELFPAY ==
--- NOTE | 2020-06-03 09:45 | EMG_ITS ---
ADDENDUM: Nerve conduction EMG study: Normal motor and sensory nerve conduction velocities in the right lower extremity. No evidence of neuropathy or nerve entrapment. Normal EMG of the right L4-S1 innervated muscles. MD DOMINIK Lindsey/REBECCA / [id number]
== END 2020-06-03 10:38 | disposition home or self-care (01) ==
LOC: HO.NEURO 10:37
PROVIDERS: PCP Family Medicine; Visit Provider Family Medicine
DX: M79.604 Pain in right leg (principal); M79.605 Pain in left leg
CPT/HCPCS: 95860; 95886; 95910

== ENCOUNTER → 2020-06-11 09:20 | Outpatient (BNVA) | payer MEDICAID, SELFPAY | PROVIDERS: PCP Family Medicine; Visit Provider Nurse Practitioner Family | DX: I25.10 Atherosclerotic heart disease of native coronary artery without angina pectoris (principal); R00.2 Palpitations; I10 Essential (primary) hypertension; E78.5 Hyperlipidemia, unspecified; Z98.890 Other specified postprocedural states | CPT/HCPCS: 93005; 99212 ==

== ENCOUNTER 2020-06-28 13:09 | Emergency (ER) | payer MEDICAID, SELFPAY ==
[2020-06-28 14:34] VITALS: BP 135/74; PULSE 111; RESP 20; TEMP 37.4; O2SAT 98; BMI 39.7
--- NOTE | 2020-06-28 16:06 | ED.GENADULT ---
HPI - General Adult General Chief complaint: General Medical Stated complaint: chest wall pain, cough Time Seen by Provider: 06/28/20 16:06 Source: patient Mode of arrival: ambulatory Limitations: no limitations History of Present Illness MD complaint: chest heaviness, cough Onset (ago): day(s) (3) Location: chest Radiation: non-radiation Severity: moderate and similar to prior episodes (feels like when she had pneumonia in the past) Quality: aching and dull Pain Consistency: intermittent Relieving factors: none Exacerbating factors: other (cough) Associated symptoms: chest pain, cough, fever/chills, loss of appetite and malaise Treatments prior to arrival: other (last monday seen at [facility] - COVID pending, started on prednisone then) Related Data Home Medications Medication Instructions Recorded Confirmed albuterol sulfate 90 mcg/actuation 1 inh INHALATION Q4-6H PRN 03/26/20 06/11/20 breath activated powder inhaler amlodipine 5 mg tablet 5 mg PO DAILY 03/26/20 06/11/20 aspirin 81 mg tablet,delayed 81 mg PO DAILY 03/26/20 06/11/20 release cholecalciferol (vitamin D3) 25 25 mcg PO DAILY 03/26/20 06/11/20 mcg (1,000 unit) capsule docusate sodium 100 mg capsule 100 mg PO DAILY PRN 03/26/20 06/11/20 ezetimibe 10 mg tablet 10 mg PO DAILY 03/26/20 06/11/20 fluticasone propionate 110 1 puff INHALATION BID 03/26/20 06/11/20 mcg/actuation HFA aerosol inhaler gabapentin 400 mg capsule 400 mg PO DAILY 03/26/20 06/11/20 lorazepam 2 mg tablet 2 mg PO BEDTIME PRN 03/26/20 06/11/20 methocarbamol 500 mg tablet 500 mg PO QID PRN 03/26/20 06/11/20 pantoprazole 40 mg tablet,delayed 40 mg PO DAILY 03/26/20 06/11/20 release rosuvastatin 10 mg tablet 10 mg PO DAILY 03/26/20 06/11/20 zolpidem 10 mg tablet 5 mg PO BEDTIME PRN 03/26/20 06/11/20 tramadol 50 mg PO BID PRN 05/20/20 06/11/20 Previous Rx's Medication Instructions Recorded fenofibrate 54 mg tablet 54 mg PO DAILY 30 Days #30 tab 03/27/20 apixaban [Eliquis] See Rx Instructions .ROUTE 05/15/20 .COMPLEX #80 tab azithromycin 250 mg PO DAILY 4 Days #4 tab 06/28/20 azithromycin See Rx Instructions .ROUTE 06/28/20 .COMPLEX #6 tab hydrocodone-homatropine 5 ml PO Q6H PRN #60 ml 06/28/20 hydrocodone-homatropine 5 ml PO Q6H PRN #60 ml 06/28/20 Allergies Allergy/AdvReac Type Severity Reaction Status Date / Time loratadine [From CLARITIN] Allergy Mild CHILLS AND Verified 05/29/20 14:20 DIFF BREATHING Review of Systems Review of Systems: Constitutional : No Weight loss, pos Fever, pos Chills ENT/Mouth : No sore throat, No Rhinorrhea Eyes: No Eye Pain, No Swelling Cardiovascular : pos Chest Pain, pos SOB, no Dyspnea on Exertion, No Orthopnea, No Edema, No Palpitations Respiratory : pos Cough, No Sputum Gastrointestinal : pos Nausea, No Vomiting, No Diarrhea, No abdominal Pain, No Hematochezia, No Melena Genitourinary : No Dysuria, No Urinary Frequency Musculoskeletal : No joint pain, pos Myalgias, No Joint Swelling Skin : No Skin Lesions, No rash Neuro : No Weakness, No Numbness, No Dizziness, No Headache Psych : No Anxiety/Panic, No Depression Heme/Lymph: No Bruising, No Lymphadenopathy Endocrine : No Polyuria, No Polydipsia All other systems reviewed and are negative [facility] Past Medical History Attestation statement: The following information was validated with the patient. Medical History Acid reflux Coronary artery disease Fatty liver Fibromyalgia Gall bladder polyp Hyperlipidemia Hypertension Obesity (BMI 30-39.9) Sleep apnea Surgical History History of cardiac cath Family History Family History Paternal Grandfather No problems noted. Father History of cancer Lung cancer Mother No problems noted. Social History Social History Household Members: Significant Other and Children Housing: Apartment Alcohol intake: never Smoking Status: Never smoker Years Smoked: Prior smoker, no alcohol or drug use Second Hand Smoke Exposure: No Advance Directives: No Advance Directives Information Provided: No service: No Current occupational status: disabled Physical Exam Vital Signs: Vital Signs: Last Vital Signs Temp 99.2 F 06/28/20 16:37 Pulse 96 06/28/20 16:37 Resp 16 06/28/20 16:37 BP 99/57 L 06/28/20 16:37 Pulse Ox 95 06/28/20 16:37 Body Mass Index 39.7 Appearance: Alert. Oriented X3. No acute distress. Eyes: Pupils equal, round and reactive to light. ENT: Pharynx normal. Neck: Normal inspection. Neck supple. CVS: Normal heart rate and rhythm. Pulses normal. Respiratory: No respiratory distress. Breath sounds normal. Chest: ttp along chest wall Abdomen: Soft and non-tender. Skin: Skin warm and dry. Normal skin color. Normal skin turgor. Extremities: No lower extremity edema. No calf ttp Neuro: Oriented X 3. No motor deficit. No sensory deficit. Course Course Course Narrative: + for COVID will recheck labs and pulse on on walking if negative stable for DC Medical Decision Making MDM Narrative Medical decision making narrative: 49 yo female with CAD, asthma, HTN, HPL here with chest pain and heaviness + URI symptoms will need labs, EKG, CXR, ddimer, troponin, anti tussive, COVID swab, dispo per results and findings. Lab Data Result diagrams: 06/28/20 16:53 06/28/20 16:53 Labs: Lab Results 06/28/20 06/28/20 06/28/20 Range/Units 16:53 16:53 16:53 WBC 4.7 L (4.8-10.8) X10*3/uL RBC 4.28 (4.20-5.50) X10*6/uL Hgb 13.2 (12.0-16.0) g/dl Hct 39.9 (37-47) % MCV 93.2 (80-98) fL MCH 30.8 (27.0-33.0) pg MCHC 33.1 (31.0-35.0) g/dl RDW 13.6 (11.0-16.0) % Plt Count 216 (160-400) X10*3/uL MPV 10.6 (9.4-12.3) fL Immature Gran % (Auto) 0.2 (0.0-0.4) % Neut % (Auto) 65.3 (45-73) % Lymph % (Auto) 27.9 (20-40) % Mcpherson % (Auto) 6.4 (2-11) % Eos % (Auto) 0.0 (0-4) % Baso % (Auto) 0.2 (0-2) % Lymph # (Auto) 1.3 (1.2-4.9) X10*3/uL Mcpherson # (Auto) 0.3 (0.1-1.2) X10*3/uL Eos # (Auto) 0.0 (0.0-0.4) X10*3/uL Baso # (Auto) 0.0 (0.0-0.2) X10*3/uL Abs Immat Gran (auto) 0.01 (0.00-0.03) X10*3/uL Absolute Neuts (auto) 3.1 (2.0-8.3) X10*3/uL Absolute Nucleated RBC 0.000 (0.0-0.012) X10*3/uL Nucleated RBC % (auto) 0.0 (0.0-0.2) /100WBC D-Dimer < 200 NG/ML Sodium 141 (135-145) mmol/L Potassium 4.2 (3.3-5.1) mmol/l Chloride 107 (96-108) mmol/L Carbon Dioxide 24 (22-29) mmol/L Anion Gap 14 (12-20) BUN 9 (9-16) mg/dL Creatinine 0.81 (0.5-1.4) mg/dL Estim Creat Clear Calc 86.0 Estimated GFR > 60 Random Glucose 125 H (60-115) mg/dL Lactic Acid (0.5-2.0) mmol/L Calcium 8.9 D (8.4-10.2) mg/dL Magnesium (1.6-2.6) mg/dL Troponin I High Sens (<3.5-17.0) ng/L Coronavirus (PCR) (Negative) Influenza Type A (PCR) (Negative) Influenza Type B (PCR) (Negative) RSV RNA Qual (PCR) (Negative) 06/28/20 06/28/20 06/28/20 Range/Units 16:53 16:53 16:53 WBC (4.8-10.8) X10*3/uL RBC (4.20-5.50) X10*6/uL Hgb (12.0-16.0) g/dl Hct (37-47) % MCV (80-98) fL MCH (27.0-33.0) pg MCHC (31.0-35.0) g/dl RDW (11.0-16.0) % Plt Count (160-400) X10*3/uL MPV (9.4-12.3) fL Immature Gran % (Auto) (0.0-0.4) % Neut % (Auto) (45-73) % Lymph % (Auto) (20-40) % Mcpherson % (Auto) (2-11) % Eos % (Auto) (0-4) % Baso % (Auto) (0-2) % Lymph # (Auto) (1.2-4.9) X10*3/uL Mcpherson # (Auto) (0.1-1.2) X10*3/uL Eos # (Auto) (0.0-0.4) X10*3/uL Baso # (Auto) (0.0-0.2) X10*3/uL Abs Immat Gran (auto) (0.00-0.03) X10*3/uL Absolute Neuts (auto) (2.0-8.3) X10*3/uL Absolute Nucleated RBC (0.0-0.012) X10*3/uL Nucleated RBC % (auto) (0.0-0.2) /100WBC D-Dimer NG/ML Sodium (135-145) mmol/L Potassium (3.3-5.1) mmol/l Chloride (96-108) mmol/L Carbon Dioxide (22-29) mmol/L Anion Gap (12-20) BUN (9-16) mg/dL Creatinine (0.5-1.4) mg/dL Estim Creat Clear Calc Estimated GFR Random Glucose (60-115) mg/dL Lactic Acid 1.0 (0.5-2.0) mmol/L Calcium (8.4-10.2) mg/dL Magnesium 2.1 (1.6-2.6) mg/dL Troponin I High Sens < 3.5 (<3.5-17.0) ng/L Coronavirus (PCR) (Negative) Influenza Type A (PCR) (Negative) Influenza Type B (PCR) (Negative) RSV RNA Qual (PCR) (Negative) 06/28/20 Range/Units 16:54 WBC (4.8-10.8) X10*3/uL RBC (4.20-5.50) X10*6/uL Hgb (12.0-16.0) g/dl Hct (37-47) % MCV (80-98) fL MCH (27.0-33.0) pg MCHC (31.0-35.0) g/dl RDW (11.0-16.0) % Plt Count (160-400) X10*3/uL MPV (9.4-12.3) fL Immature Gran % (Auto) (0.0-0.4) % Neut % (Auto) (45-73) % Lymph % (Auto) (20-40) % Mcpherson % (Auto) (2-11) % Eos % (Auto) (0-4) % Baso % (Auto) (0-2) % Lymph # (Auto) (1.2-4.9) X10*3/uL Mcpherson # (Auto) (0.1-1.2) X10*3/uL Eos # (Auto) (0.0-0.4) X10*3/uL Baso # (Auto) (0.0-0.2) X10*3/uL Abs Immat Gran (auto) (0.00-0.03) X10*3/uL Absolute Neuts (auto) (2.0-8.3) X10*3/uL Absolute Nucleated RBC (0.0-0.012) X10*3/uL Nucleated RBC % (auto) (0.0-0.2) /100WBC D-Dimer NG/ML Sodium (135-145) mmol/L Potassium (3.3-5.1) mmol/l Chloride (96-108) mmol/L Carbon Dioxide (22-29) mmol/L Anion Gap (12-20) BUN (9-16) mg/dL Creatinine (0.5-1.4) mg/dL Estim Creat Clear Calc Estimated GFR Random Glucose (60-115) mg/dL Lactic Acid (0.5-2.0) mmol/L Calcium (8.4-10.2) mg/dL Magnesium (1.6-2.6) mg/dL Troponin I High Sens (<3.5-17.0) ng/L Coronavirus (PCR) POSITIVE A (Negative) Influenza Type A (PCR) NEGATIVE (Negative) Influenza Type B (PCR) NEGATIVE (Negative) RSV RNA Qual (PCR) NEGATIVE (Negative) ECG Data Attestation: I personally reviewed and interpreted this ECG as follows: Interpretation: Rate:88 RhythmNSR: [place]: left Normal P waves. Normal [place]. Normal QRS complex. ST T wave : no PIYUSH, nonspecific qTC: normal prior studies: no acute ischemia The study has been interpreted contemporaneously by me. . Discharge Plan Discharge Clinical Impression: COVID-19 Patient Disposition: Home, Self-Care Instructions: COVID-19 (Coronavirus Disease 2019) (ED) Additional Instructions: return to ED for any worsening symptoms or concerns CONTINUE STEROIDS IF YOU HAVE ANY LEFT Prescriptions: New azithromycin 500 mg tablet See Rx Instructions .ROUTE .COMPLEX Qty: 6 RF: 0 hydrocodone-homatropine 5-1.5 mg/5 mL (5 mL) syrup 5 ml PO Q6H PRN (Reason: cough) Qty: 60 RF: 0 hydrocodone-homatropine 5-1.5 mg/5 mL (5 mL) syrup 5 ml PO Q6H PRN (Reason: cough) Qty: 60 RF: 0 azithromycin 250 mg tablet 250 mg PO DAILY 4 Days Qty: 4 RF: 0 No Action fenofibrate 54 mg tablet 54 mg PO DAILY 30 Days Qty: 30 RF: 5 Eliquis 5 mg tablet See Rx Instructions .ROUTE .COMPLEX Qty: 80 RF: 0 tramadol 50 mg Tablet 50 mg PO BID PRN (Reason: Pain) RF: 0 albuterol sulfate 90 mcg/actuation aerosol powdr breath activated 1 inh inhalation Q4-6H PRN (Reason: Gastric Reflux) RF: 0 lorazepam [Ativan] 2 mg tablet 2 mg PO BEDTIME PRN (Reason: Anxiety) RF: 0 Flovent HFA 110 mcg/actuation HFA aerosol inhaler 1 puff inhalation BID RF: 0 zolpidem [Ambien] 10 mg tablet 5 mg PO BEDTIME PRN (Reason: Anxiety) RF: 0 aspirin [Adult Low Dose Aspirin] 81 mg tablet,delayed release (DR/EC) 81 mg PO DAILY RF: 0 cholecalciferol (vitamin D3) 25 mcg (1,000 unit) capsule 25 mcg PO DAILY RF: 0 rosuvastatin [Crestor] 10 mg tablet 10 mg PO DAILY RF: 0 methocarbamol 500 mg tablet 500 mg PO QID PRN (Reason: Muscle Spasm) RF: 0 gabapentin [Neurontin] 400 mg capsule 400 mg PO DAILY RF: 0 pantoprazole [Protonix] 40 mg tablet,delayed release (DR/EC) 40 mg PO DAILY RF: 0 docusate sodium [Colace] 100 mg capsule 100 mg PO DAILY PRN (Reason: Constipation) RF: 0 ezetimibe [Zetia] 10 mg tablet 10 mg PO DAILY RF: 0 amlodipine [Norvasc] 5 mg tablet 5 mg PO DAILY RF: 0 Referrals: Ava Yap DO [Primary Care Provider] - 5 days (IF NOT BETTER) Stand Alone Forms: Work/School Release
--- NOTE | 2020-06-28 16:09 | ECG_ITS ---
Test Reason : GENERAL MEDICAL Blood Pressure : / mmHG Vent. Rate : 088 BPM Atrial Rate : 088 BPM P-R Int : 120 ms QRS Dur : 074 ms QT Int : 356 ms P-R-T Axes : 033 -13 091 degrees QTc Int : 430 ms Normal sinus rhythm Abnormal QRS-T angle, consider primary T wave abnormality Abnormal ECG When compared with ECG of 21-MAY-2020 20:54, Criteria for Inferior infarct are no longer Present Referred By: Adriana Phan Electronically Signed By:Ab Gallegos
--- NOTE | 2020-06-28 16:10 | XR_ITS ---
EXAMINATION: XR CHEST CLINICAL INFORMATION: Dyspnea. COMPARISON: Chest 05/21/2020 TECHNIQUE: Frontal view of the chest was obtained. FINDINGS: No significant abnormality is noted involving the heart, lungs, mediastinum, bony thorax or soft tissues. XR/XR chest 1V IMPRESSION: Unremarkable chest examination.
[2020-06-28 16:37] VITALS: BP 99/57; PULSE 96; RESP 16; TEMP 37.3; O2SAT 95
[2020-06-28 17:03] LABS: Basophils Percent Auto 0.2 % (0-2); Hematocrit 39.9 % (37-47); Hemoglobin 13.2 g/dl (12.0-16.0); Imm Gran Abs Auto 0.01 X10*3/uL (0.00-0.03); Imm Gran Pct Auto 0.2 % (0.0-0.4); Lymphocytes Absolute Auto 1.3 X10*3/uL (1.2-4.9); Lymphocytes Percent Auto 27.9 % (20-40); MANUAL DIFF FLAG NO; Mean Corpuscular HGB Conc 33.1 g/dl (31.0-35.0); Mean Corpuscular Hemoglobin 30.8 pg (27.0-33.0); Mean Corpuscular Volume 93.2 fL (80-98); Mean Platelet Volume 10.6 fL (9.4-12.3); Monocytes Absolute Auto 0.3 X10*3/uL (0.1-1.2); Monocytes Percent Auto 6.4 % (2-11); Neutrophils Absolute Auto 3.1 X10*3/uL (2.0-8.3); Neutrophils Percent Auto 65.3 % (45-73); Platelet Count 216 X10*3/uL (160-400); Red Blood Count 4.28 X10*6/uL (4.20-5.50); Red Cell Distribution Width 13.6 % (11.0-16.0); White Blood Count 4.7 X10*3/uL (4.8-10.8)
[2020-06-28] MEDS: Acetaminophen 325 MG TABLET 650 MG PO (17:18)
[2020-06-28] MEDS: HYDROcodone/Homat 5/1.5/5 ML 5 ML SYRUP PO (17:19)
[2020-06-28 17:27] LABS: D Dimer < 200 NG/ML
[2020-06-28 17:29] LABS: Anion Gap 14 (12-20); Blood Urea Nitrogen 9 mg/dL (9-16); Calcium 8.9 mg/dL (8.4-10.2); Carbon Dioxide 24 mmol/L (22-29); Chloride 107 mmol/L (96-108); Estimated Glomerular Filt Rate > 60; Glucose Random 125 mg/dL (60-115); Potassium 4.2 mmol/l (3.3-5.1); Sodium 141 mmol/L (135-145)
[2020-06-28 17:30] LABS: Magnesium 2.1 mg/dL (1.6-2.6)
[2020-06-28 17:37] LABS: Troponin-I High Sensitivity < 3.5 ng/L (<3.5-17.0)
[2020-06-28 18:00] VITALS: BP 133/71; PULSE 78; RESP 14; TEMP 37.3; O2SAT 98
[2020-06-28 18:00] LABS: Influenza A PCR NEGATIVE (Negative); Influenza B PCR NEGATIVE (Negative); Resp Syncy Virus RNA Qual PCR NEGATIVE (Negative)
[2020-06-28 18:03] LABS: SARS COV2 PCR INHOUSE POSITIVE (Negative)
[2020-06-28] MEDS: Azithromycin 500 MG TABLET PO (18:38)
== END 2020-06-28 18:48 | disposition home or self-care (01) ==
PROVIDERS: Emergency Provider Emergency Medicine; PCP Family Medicine
DX: U07.1 COVID-19 (principal); R07.89 Other chest pain; R05 Cough; Z79.899 Other long term (current) drug therapy
CPT/HCPCS: 0241U; 36415; 71045; 80048; 83605; 83735; 84484; 85025; 85379; 87040; 93005; 99283; 99284

== ENCOUNTER 2020-07-01 21:03 | Emergency (ER) | payer MEDICAID, SELFPAY ==
[2020-07-01 21:08] VITALS: BP 133/61; PULSE 111; RESP 30; TEMP 37.7; O2SAT 95; BMI 40.0
--- NOTE | 2020-07-01 21:31 | CT_ITS ---
EXAMINATION: CT ANGIOGRAM OF THE CHEST WITH AND WITHOUT CONTRAST (CT PULMONARY ANGIOGRAM FOR PE) CLINICAL INFORMATION: Covid with tachycardia sob COMPARISON: 05/18/2020 CT. Radiograph 06/28/2020. TECHNIQUE: Prior to contrast administration, noncontrast localization images were obtained. Subsequently, multidetector volumetric imaging was performed from the thoracic inlet to below the diaphragms following the administration of 65 mL Omnipaque 350 intravenous contrast. No contrast reaction reported Sagittal, coronal, and MIP oblique sagittal reformatted images were obtained on the CT workstation, uploaded to PACS, and reviewed. This CT examination was performed using dose optimization techniques as appropriate, variously including the following: *Automated exposure control *Adjustment of mA and/or kV according to patient size (this includes techniques or standardized protocols for targeted exams where dose is matched to indication/reason for exam; i.e. extremities or head) *Use of iterative reconstruction technique Total exam dose-length product 392 mGy-cm FINDINGS: QUALITY OF STUDY/CONTRAST BOLUS: Satisfactory. PULMONARY ARTERIES: No central or segmental pulmonary emboli. THORACIC AORTA: No aneurysm or dissection. LUNG: The central airways are patent. Patchy groundglass opacities are seen, scattered throughout both lungs. No dense consolidation. Calcified granulomata. PLEURA: No pleural effusion or pneumothorax. MEDIASTINUM: Normal heart size. No pericardial effusion. In the superior mediastinum in the right paratracheal region there is a 0.8 cm short axis lymph node on series 5 image 10. This is unchanged.. No evidence of septal bowing or right heart strain. CHEST WALL/AXILLA: No axillary or internal mammary lymphadenopathy. OSSEOUS STRUCTURES: No acute or suspicious osseous abnormality. Degenerative changes of the spine. UPPER ABDOMEN: Unremarkable. No reflux of contrast into the hepatic veins to suggest elevated right heart pressures. CT/CT angio chest PE protocol IMPRESSION: 1. No pulmonary embolism. 2. Groundglass opacities scattered throughout both lungs, consistent with the clinical history of Covid. VTE: negative
[2020-07-01 22:11] VITALS: BP 112/65; PULSE 93; RESP 16; O2SAT 96
[2020-07-01] MEDS: 0.9 % Sodium Chloride 1,000 ML 999 ML IVCONT (22:13)
[2020-07-01 22:22] LABS: Hematocrit 39.3 % (37-47); Imm Gran Abs Auto 0.01 X10*3/uL (0.00-0.03); Imm Gran Pct Auto 0.2 % (0.0-0.4); Lymphocytes Absolute Auto 2.2 X10*3/uL (1.2-4.9); Lymphocytes Percent Auto 46.1 % (20-40); MANUAL DIFF FLAG NO; Mean Corpuscular HGB Conc 33.1 g/dl (31.0-35.0); Mean Corpuscular Hemoglobin 30.7 pg (27.0-33.0); Mean Corpuscular Volume 92.7 fL (80-98); Mean Platelet Volume 10.5 fL (9.4-12.3); Monocytes Absolute Auto 0.4 X10*3/uL (0.1-1.2); Neutrophils Absolute Auto 2.2 X10*3/uL (2.0-8.3); Neutrophils Percent Auto 45.7 % (45-73); Platelet Count 208 X10*3/uL (160-400); Red Blood Count 4.24 X10*6/uL (4.20-5.50); Red Cell Distribution Width 13.2 % (11.0-16.0); White Blood Count 4.8 X10*3/uL (4.8-10.8)
[2020-07-01 22:27] LABS: Prothrombin Time 11.9 SEC (10.8-13.0)
[2020-07-01] MEDS: levoFLOXacin/D5W 750 MG/150 ML PIGGYBACK 100 MG IV (22:28)
[2020-07-01 22:30] VITALS: BP 114/65; PULSE 93; RESP 18; O2SAT 99
[2020-07-01 22:30] LABS: Partial Thromboplastin Time 28.2 SEC (24.1-38.0)
--- NOTE | 2020-07-01 22:34 | ED.SOB ---
HPI - SOB/Dyspnea General Chief Complaint: Dyspnea Stated Complaint: covid positive. diff breathing Time Seen by Provider: 07/01/20 21:31 Source: patient Mode of arrival: ambulatory Limitations: language barrier (Malawian-speaking) History of Present Illness HPI Narrative: Patient is a 41-year-old [place]awian-speaking female now with a past medical history of HLD, CAD, HTN, heart palpitations and obesity who presents with shortness of breath. Patient says she tested positive for COVID-19 on June 23 and has been managing well at home in isolation until yesterday. She states she has a pulse oximeter and she noticed the O2 saturation varies between 87% and 95%. Patient states her heart rate is also just over 100 beats per minute. Patient states she has used her albuterol nebulizer at home with minimal relief. She denies chest pain, fevers, nausea or vomiting but has had some diarrhea for the past few days in a small amount. She states she has been eating and drinking normally. Related Data Home Medications Medication Instructions Recorded Confirmed albuterol sulfate 90 mcg/actuation 1 inh INHALATION Q4-6H PRN 03/26/20 06/11/20 breath activated powder inhaler amlodipine 5 mg tablet 5 mg PO DAILY 03/26/20 06/11/20 aspirin 81 mg tablet,delayed 81 mg PO DAILY 03/26/20 06/11/20 release cholecalciferol (vitamin D3) 25 25 mcg PO DAILY 03/26/20 06/11/20 mcg (1,000 unit) capsule docusate sodium 100 mg capsule 100 mg PO DAILY PRN 03/26/20 06/11/20 ezetimibe 10 mg tablet 10 mg PO DAILY 03/26/20 06/11/20 fluticasone propionate 110 1 puff INHALATION BID 03/26/20 06/11/20 mcg/actuation HFA aerosol inhaler gabapentin 400 mg capsule 400 mg PO DAILY 03/26/20 06/11/20 lorazepam 2 mg tablet 2 mg PO BEDTIME PRN 03/26/20 06/11/20 methocarbamol 500 mg tablet 500 mg PO QID PRN 03/26/20 06/11/20 pantoprazole 40 mg tablet,delayed 40 mg PO DAILY 03/26/20 06/11/20 release rosuvastatin 10 mg tablet 10 mg PO DAILY 03/26/20 06/11/20 zolpidem 10 mg tablet 5 mg PO BEDTIME PRN 03/26/20 06/11/20 tramadol 50 mg PO BID PRN 05/20/20 06/11/20 Previous Rx's Medication Instructions Recorded fenofibrate 54 mg tablet 54 mg PO DAILY 30 Days #30 tab 03/27/20 apixaban [Eliquis] See Rx Instructions .ROUTE 05/15/20 .COMPLEX #80 tab azithromycin 250 mg PO DAILY 4 Days #4 tab 06/28/20 azithromycin See Rx Instructions .ROUTE 06/28/20 .COMPLEX #6 tab hydrocodone-homatropine 5 ml PO Q6H PRN #60 ml 06/28/20 hydrocodone-homatropine 5 ml PO Q6H PRN #60 ml 06/28/20 azithromycin 250 mg PO DAILY 5 Days #5 tab 07/02/20 prednisone 50 mg PO DAILY #4 tab 07/02/20 Allergies Allergy/AdvReac Type Severity Reaction Status Date / Time loratadine [From CLARITIN] Allergy Mild CHILLS AND Verified 07/01/20 21:13 DIFF BREATHING Review of Systems Review of Systems: Yes all other systems are reviewed and are negative [facility] Past Medical History Medical History Acid reflux Coronary artery disease Fatty liver Fibromyalgia Gall bladder polyp Hyperlipidemia Hypertension Obesity (BMI 30-39.9) Sleep apnea Surgical History History of cardiac cath Family History Family History Paternal Grandfather No problems noted. Father History of cancer Lung cancer Mother No problems noted. Social History Social History Household Members: Significant Other and Children Housing: Apartment Alcohol intake: never Smoking Status: Never smoker Years Smoked: Prior smoker, no alcohol or drug use Second Hand Smoke Exposure: No Advance Directives: No Advance Directives Information Provided: No service: No Current occupational status: disabled Physical Exam Vital Signs: Vital Signs: Last Vital Signs Temp 100 F 07/01/20 21:08 Pulse 95 07/02/20 00:22 Resp 13 07/02/20 00:22 BP 112/57 L 07/02/20 00:22 Pulse Ox 100 07/02/20 00:22 Body Mass Index 40.0 Const: General: cooperative, comfortable, no acute distress, well developed and tired appearing Orientation/consciousness: patient oriented x3 Limitations: no limitations HENMT: Head: Yes normal to inspection Eyes: General: appearance normal, both eyes and all related structures Neck: Neck: Yes normal visual inspection and Yes full ROM Resp: Effort & Inspection: normal respiratory effort and able to speak in complete sentences Auscultation: clear to auscultation bilaterally and diminished lung sounds diffuse Cardio: Rate: regular rate Rhythm: regular rhythm Heart sounds: normal S1 and S2 GI: Inspection: Yes normal to inspection Palpation (GI): Soft to palpation and nontender Skin: General skin exam: no rashes or lesions noted Neuro: General: patient oriented x3 Extrem: General: Yes normal to inspection Course Course Course Narrative: Patient is a 41-year-old [place]awian-speaking female now with a past medical history of HLD, CAD, HTN, heart palpitations and obesity who presents with shortness of breath. Patient says she tested positive for COVID-19 on June 23 and has been managing well at home in isolation until yesterday. Ambulation trial revealed pulse ox of 95% while patient was walking a short distance. She is slightly tachycardic at 111BPM and tachypneic at RR of 30 upon arrival. Upon my exam, patient's vital signs stabilized, O2 of 99% on 2 L. she did however meet sepsis protocol upon arrival so sepsis protocol was follow patient's labs WNL, negative lactate, heart rate and respiratory rate have both normalized and stabilized, patient is currently satting 100% on room air as I removed the nasal cannula. Will give 1 dose of prednisone and azithromycin with the rest of the dose to follow via prescription. Discussed with patient red flag signs to return. She does have a pulse ox monitor to use at home. This is not sepsis, this is viral Covid-19 infection. MDM - SOB/Dyspnea Differential Diagnosis Differential diagnosis: Likely acute exacerbation of chronic obstructive airways disease, congestive heart failure, pneumonia, pulmonary embolism and pleural effusion Lab Data Attestation: I reviewed the patient's lab results. Result diagrams: 07/01/20 22:06 07/01/20 22:07 Labs: Lab Results 07/01/20 07/01/20 07/01/20 Range/Units 22:06 22:06 22:06 WBC 4.8 (4.8-10.8) X10*3/uL RBC 4.24 (4.20-5.50) X10*6/uL Hgb 13.0 (12.0-16.0) g/dl Hct 39.3 (37-47) % MCV 92.7 (80-98) fL MCH 30.7 (27.0-33.0) pg MCHC 33.1 (31.0-35.0) g/dl RDW 13.2 (11.0-16.0) % Plt Count 208 (160-400) X10*3/uL MPV 10.5 (9.4-12.3) fL Immature Gran % (Auto) 0.2 (0.0-0.4) % Neut % (Auto) 45.7 (45-73) % Lymph % (Auto) 46.1 H (20-40) % [place] % (Auto) 8.0 (2-11) % Eos % (Auto) 0.0 (0-4) % Baso % (Auto) 0.0 (0-2) % Lymph # (Auto) 2.2 (1.2-4.9) X10*3/uL [place] # (Auto) 0.4 (0.1-1.2) X10*3/uL Eos # (Auto) 0.0 (0.0-0.4) X10*3/uL Baso # (Auto) 0.0 (0.0-0.2) X10*3/uL Abs Immat Gran (auto) 0.01 (0.00-0.03) X10*3/uL Absolute Neuts (auto) 2.2 (2.0-8.3) X10*3/uL Absolute Nucleated RBC 0.000 (0.0-0.012) X10*3/uL Nucleated RBC % (auto) 0.0 (0.0-0.2) /100WBC PT 11.9 (10.8-13.0) SEC INR 1.0 (0.9-1.1) APTT 28.2 D (24.1-38.0) SEC Sodium (135-145) mmol/L Potassium (3.3-5.1) mmol/l Chloride (96-108) mmol/L Carbon Dioxide (22-29) mmol/L Anion Gap (12-20) BUN (9-16) mg/dL Creatinine (0.5-1.4) mg/dL Estim Creat Clear Calc Estimated GFR Random Glucose (60-115) mg/dL Lactic Acid 1.3 (0.5-2.0) mmol/L Calcium (8.4-10.2) mg/dL Total Bilirubin (0.0-1.0) mg/dL 07/01/20 Range/Units 22:07 WBC (4.8-10.8) X10*3/uL RBC (4.20-5.50) X10*6/uL Hgb (12.0-16.0) g/dl Hct (37-47) % MCV (80-98) fL MCH (27.0-33.0) pg MCHC (31.0-35.0) g/dl RDW (11.0-16.0) % Plt Count (160-400) X10*3/uL MPV (9.4-12.3) fL Immature Gran % (Auto) (0.0-0.4) % Neut % (Auto) (45-73) % Lymph % (Auto) (20-40) % [place] % (Auto) (2-11) % Eos % (Auto) (0-4) % Baso % (Auto) (0-2) % Lymph # (Auto) (1.2-4.9) X10*3/uL [place] # (Auto) (0.1-1.2) X10*3/uL Eos # (Auto) (0.0-0.4) X10*3/uL Baso # (Auto) (0.0-0.2) X10*3/uL Abs Immat Gran (auto) (0.00-0.03) X10*3/uL Absolute Neuts (auto) (2.0-8.3) X10*3/uL Absolute Nucleated RBC (0.0-0.012) X10*3/uL Nucleated RBC % (auto) (0.0-0.2) /100WBC PT (10.8-13.0) SEC INR (0.9-1.1) APTT (24.1-38.0) SEC Sodium 139 (135-145) mmol/L Potassium 3.9 (3.3-5.1) mmol/l Chloride 106 (96-108) mmol/L Carbon Dioxide 22 (22-29) mmol/L Anion Gap 15 (12-20) BUN 12 (9-16) mg/dL Creatinine 0.82 (0.5-1.4) mg/dL Estim Creat Clear Calc 85.3 Estimated GFR > 60 Random Glucose 105 (60-115) mg/dL Lactic Acid (0.5-2.0) mmol/L Calcium 8.8 (8.4-10.2) mg/dL Total Bilirubin 0.2 (0.0-1.0) mg/dL Imaging Data Chest x-ray: Attestation: I personally reviewed and interpreted this imaging study as follows: Radiologist's impression: [address] [address] XRay Report Signed Patient: Kody Xiong#: [id number] : 1970Acct:[id number] Age/Sex: 49 / FADM Date: 06/28/20 Loc: .ED Attending Dr: Ordering Physician: Adriana Phan DO Date of Service: 06/28/20 Procedure(s): XR chest 1V Accession Number(s): [id number] cc: Adriana Phan DO~ EXAMINATION: XR CHEST CLINICAL INFORMATION: Dyspnea. COMPARISON: Chest 05/21/2020 TECHNIQUE: Frontal view of the chest was obtained. FINDINGS: No significant abnormality is noted involving the heart, lungs, mediastinum, bony thorax or soft tissues. XR/XR chest 1V IMPRESSION: Unremarkable chest examination. CT scan - chest: Attestation: I personally reviewed and interpreted this imaging study as follows: Radiologist's impression: [address] [address] [address] Scan Report Signed Patient: Heath XiongR#: [id number] : 1970Acct:[id number] Age/Sex: 49 / FADM Date: 07/01/20 Loc: HO.ED Attending Dr: Ordering Physician: TANIA RECINOS Date of Service: 07/01/20 Procedure(s): CT angio chest PE protocol Accession Number(s): [id number] cc: TANIA RECINOS~ EXAMINATION: CT ANGIOGRAM OF THE CHEST WITH AND WITHOUT CONTRAST (CT PULMONARY ANGIOGRAM FOR PE) CLINICAL INFORMATION: Covid with tachycardia sob COMPARISON: 05/18/2020 CT. Radiograph 06/28/2020. TECHNIQUE: Prior to contrast administration, noncontrast localization images were obtained. Subsequently, multidetector volumetric imaging was performed from the thoracic inlet to below the diaphragms following the administration of 65 mL Omnipaque 350 intravenous contrast. No contrast reaction reported Sagittal, coronal, and MIP oblique sagittal reformatted images were obtained on the CT workstation, uploaded to PACS, and reviewed. This CT examination was performed using dose optimization techniques as appropriate, variously including the following: *Automated exposure control *Adjustment of mA and/or kV according to patient size (this includes techniques or standardized protocols for targeted exams where dose is matched to indication/reason for exam; i.e. extremities or head) *Use of iterative reconstruction technique Total exam dose-length product 392 mGy-cm FINDINGS: QUALITY OF STUDY/CONTRAST BOLUS: Satisfactory. PULMONARY ARTERIES: No central or segmental pulmonary emboli. THORACIC AORTA: No aneurysm or dissection. LUNG: The central airways are patent. Patchy groundglass opacities are seen, scattered throughout both lungs. No dense consolidation. Calcified granulomata. PLEURA: No pleural effusion or pneumothorax. MEDIASTINUM: Normal heart size. No pericardial effusion. In the superior mediastinum in the right paratracheal region there is a 0.8 cm short axis lymph node on series 5 image 10. This is unchanged.. No evidence of septal bowing or right heart strain. CHEST WALL/AXILLA: No axillary or internal mammary lymphadenopathy. OSSEOUS STRUCTURES: No acute or suspicious osseous abnormality. Degenerative changes of the spine. UPPER ABDOMEN: Unremarkable. No reflux of contrast into the hepatic veins to suggest elevated right heart pressures. CT/CT angio chest PE protocol IMPRESSION: 1. No pulmonary embolism. 2. Groundglass opacities scattered throughout both lungs, consistent with the clinical history of Covid. VTE: negative Discharge Plan Discharge Clinical Impression: COVID-19 Patient Disposition: Home, Self-Care Instructions: COVID-19 (Coronavirus Disease 2019) (ED) Additional Instructions: Please be sure to stay well hydrated, if you have any increasing shortness of breath or high fevers or chest pain, please seek emergency medical care. Please be sure to review instructions regarding COVID-19 I have included in your discharge paperwork. Prescriptions: New prednisone 50 mg tablet 50 mg PO DAILY Qty: 4 RF: 0 azithromycin 250 mg tablet 250 mg PO DAILY 5 Days Qty: 5 RF: 0 No Action fenofibrate 54 mg tablet 54 mg PO DAILY 30 Days Qty: 30 RF: 5 Eliquis 5 mg tablet See Rx Instructions .ROUTE .COMPLEX Qty: 80 RF: 0 tramadol 50 mg Tablet 50 mg PO BID PRN (Reason: Pain) RF: 0 azithromycin 500 mg tablet See Rx Instructions .ROUTE .COMPLEX Qty: 6 RF: 0 hydrocodone-homatropine 5-1.5 mg/5 mL (5 mL) syrup 5 ml PO Q6H PRN (Reason: cough) Qty: 60 RF: 0 hydrocodone-homatropine 5-1.5 mg/5 mL (5 mL) syrup 5 ml PO Q6H PRN (Reason: cough) Qty: 60 RF: 0 azithromycin 250 mg tablet 250 mg PO DAILY 4 Days Qty: 4 RF: 0 albuterol sulfate 90 mcg/actuation aerosol powdr breath activated 1 inh inhalation Q4-6H PRN (Reason: Gastric Reflux) RF: 0 lorazepam [Ativan] 2 mg tablet 2 mg PO BEDTIME PRN (Reason: Anxiety) RF: 0 Flovent HFA 110 mcg/actuation HFA aerosol inhaler 1 puff inhalation BID RF: 0 zolpidem [Ambien] 10 mg tablet 5 mg PO BEDTIME PRN (Reason: Anxiety) RF: 0 aspirin [Adult Low Dose Aspirin] 81 mg tablet,delayed release (DR/EC) 81 mg PO DAILY RF: 0 cholecalciferol (vitamin D3) 25 mcg (1,000 unit) capsule 25 mcg PO DAILY RF: 0 rosuvastatin [Crestor] 10 mg tablet 10 mg PO DAILY RF: 0 methocarbamol 500 mg tablet 500 mg PO QID PRN (Reason: Muscle Spasm) RF: 0 gabapentin [Neurontin] 400 mg capsule 400 mg PO DAILY RF: 0 pantoprazole [Protonix] 40 mg tablet,delayed release (DR/EC) 40 mg PO DAILY RF: 0 docusate sodium [Colace] 100 mg capsule 100 mg PO DAILY PRN (Reason: Constipation) RF: 0 ezetimibe [Zetia] 10 mg tablet 10 mg PO DAILY RF: 0 amlodipine [Norvasc] 5 mg tablet 5 mg PO DAILY RF: 0
[2020-07-01 23:04] LABS: Lactic Acid 1.3 mmol/L (0.5-2.0)
[2020-07-01 23:09] LABS: Anion Gap 15 (12-20); Bilirubin Total 0.2 mg/dL (0.0-1.0); Blood Urea Nitrogen 12 mg/dL (9-16); Calcium 8.8 mg/dL (8.4-10.2); Carbon Dioxide 22 mmol/L (22-29); Chloride 106 mmol/L (96-108); Creatinine Clr Calc Pharmacy 85.3; Estimated Glomerular Filt Rate > 60; Glucose Random 105 mg/dL (60-115); Potassium 3.9 mmol/l (3.3-5.1); Sodium 139 mmol/L (135-145)
--- NOTE | 2020-07-02 00:03 | PC.NURSE ---
report from isael valentin, awaiting chest ct results to r/o PE.
[2020-07-02 00:22] VITALS: BP 112/57; PULSE 95; RESP 13; O2SAT 100
[2020-07-02 00:30] VITALS: BP 110/53; PULSE 94; RESP 12; O2SAT 96
[2020-07-02] MEDS: iohexoL 350 MG/ML 100 ML INFUS..BTL 65 ML IV (00:46)
--- NOTE | 2020-07-02 02:03 | PC.NURSE ---
Addendum entered by Chloe Tabares 07/02/20 02:11: PT HAS PRODUCTIVE COUGH WITH WHITE SPUTUM. Original Note: pt ambulatory to bathroom with steady gait at 00:30. removed from oxygen, bathroom across the [place]. pt placed back on oxygen and had spo2 of mid 90's. pt speaking in fullo sentences, has non productive cough.
[2020-07-02 02:10] VITALS: BP 108/50; PULSE 98; RESP 14; TEMP 38; O2SAT 96
[2020-07-02] MEDS: Azithromycin 500 MG TABLET PO (02:15)
[2020-07-02] MEDS: predniSONE 20 MG TABLET 40 MG PO (02:16)
== END 2020-07-02 03:00 | disposition home or self-care (01) ==
PROVIDERS: Physician Assistant; Emergency Provider Internal Medicine
DX: U07.1 COVID-19 (principal); R50.9 Fever, unspecified; Z79.899 Other long term (current) drug therapy
CPT/HCPCS: 36415; 71275; 80048; 82247; 83605; 85025; 85610; 85730; 87040; 87147; 87205; 96361; 96365; 99283; 99284; J1956; Q9967

== ENCOUNTER 2020-07-14 04:20 | Emergency (ER) | payer MEDICAID, SELFPAY ==
[2020-07-14] MEDS: predniSONE 20 MG TABLET 40 MG PO (04:40)
--- NOTE | 2020-07-14 22:16 | ED.SOB ---
HPI - SOB/Dyspnea General Source: patient Mode of arrival: ambulatory History of Present Illness HPI Narrative: 49-year-old female with history of asthma and diagnosed with COVID-19 on 06/28 who presents with increased cough and complaints of pain when she takes a deep breath. Otherwise, she denies any fevers, chills but continues to have body aches but denies any GI or symptoms. Related Data Home Medications Medication Instructions Recorded Confirmed albuterol sulfate 90 mcg/actuation 1 inh INHALATION Q4-6H PRN 03/26/20 06/11/20 breath activated powder inhaler amlodipine 5 mg tablet 5 mg PO DAILY 03/26/20 06/11/20 aspirin 81 mg tablet,delayed 81 mg PO DAILY 03/26/20 06/11/20 release cholecalciferol (vitamin D3) 25 25 mcg PO DAILY 03/26/20 06/11/20 mcg (1,000 unit) capsule docusate sodium 100 mg capsule 100 mg PO DAILY PRN 03/26/20 06/11/20 ezetimibe 10 mg tablet 10 mg PO DAILY 03/26/20 06/11/20 fluticasone propionate 110 1 puff INHALATION BID 03/26/20 06/11/20 mcg/actuation HFA aerosol inhaler gabapentin 400 mg capsule 400 mg PO DAILY 03/26/20 06/11/20 lorazepam 2 mg tablet 2 mg PO BEDTIME PRN 03/26/20 06/11/20 methocarbamol 500 mg tablet 500 mg PO QID PRN 03/26/20 06/11/20 pantoprazole 40 mg tablet,delayed 40 mg PO DAILY 03/26/20 06/11/20 release rosuvastatin 10 mg tablet 10 mg PO DAILY 03/26/20 06/11/20 zolpidem 10 mg tablet 5 mg PO BEDTIME PRN 03/26/20 06/11/20 tramadol 50 mg PO BID PRN 05/20/20 06/11/20 Previous Rx's Medication Instructions Recorded fenofibrate 54 mg tablet 54 mg PO DAILY 30 Days #30 tab 03/27/20 apixaban [Eliquis] See Rx Instructions .ROUTE 05/15/20 .COMPLEX #80 tab azithromycin 250 mg PO DAILY 4 Days #4 tab 06/28/20 azithromycin See Rx Instructions .ROUTE 06/28/20 .COMPLEX #6 tab hydrocodone-homatropine 5 ml PO Q6H PRN #60 ml 06/28/20 hydrocodone-homatropine 5 ml PO Q6H PRN #60 ml 06/28/20 azithromycin 250 mg PO DAILY 5 Days #5 tab 07/02/20 prednisone 50 mg PO DAILY #4 tab 07/02/20 Allergies Allergy/AdvReac Type Severity Reaction Status Date / Time loratadine [From CLARITIN] Allergy Mild CHILLS AND Verified 07/01/20 21:13 DIFF BREATHING Review of Systems Review of Systems: Pertinent positives and negatives as stated in HPI 10 point review of systems is otherwise negative. [facility] Past Medical History Source: nursing notes reviewed Medical History Acid reflux Coronary artery disease Fatty liver Fibromyalgia Gall bladder polyp Hyperlipidemia Hypertension Obesity (BMI 30-39.9) Sleep apnea Surgical History History of cardiac cath Family History Family History Paternal Grandfather No problems noted. Father History of cancer Lung cancer Mother No problems noted. Social History Social History Household Members: Significant Other and Children Housing: Apartment Alcohol intake: never Smoking Status: Never smoker Years Smoked: Prior smoker, no alcohol or drug use Second Hand Smoke Exposure: No Advance Directives: No service: No Current occupational status: disabled Physical Exam Vital Signs: VITAL SIGNS: Reviewed. GENERAL: Well developed, well nourished, in no acute distress. EARS: Ext canals without abnormality, TMs non-bulging and non-erythematous NOSE: Nares patent bilateral OROPHARYNX: no oral lesions noted, posterior pharynx clear NECK: Supple, no adenopathy LUNGS: Normal breath sounds, no wheezes/rhonchi, SpO2 98% on room air no tachypnea CARDIOVASCULAR: Regular rate and rhythm without noted murmurs ABDOMEN: Soft, non-tender, non-distended with bowel sounds. No rigidity. No guarding. No palpable masses or hernias noted NEUROLOGIC: Alert and oriented x 4. Course Course Course Narrative: This is a 49-year-old female with history and clinical presentation consistent with pleurisy and low suspicion for asthma exacerbation and no evidence to suggest hypoxemia. Order albuterol and p.o. prednisone for presumptive mild asthma exacerbation. Patient tolerated medications well and was otherwise stable for discharge to home with instructions Discharge Plan Discharge Clinical Impression: Pleurisy Asthma Qualifiers: Asthma severity: mild Asthma persistence: unspecified Asthma complication type: uncomplicated Qualified Code(s): J45.909 - Unspecified asthma, uncomplicated Patient Disposition: Home, Self-Care Prescriptions: No Action fenofibrate 54 mg tablet 54 mg PO DAILY 30 Days Qty: 30 RF: 5 Eliquis 5 mg tablet See Rx Instructions .ROUTE .COMPLEX Qty: 80 RF: 0 prednisone 50 mg tablet 50 mg PO DAILY Qty: 4 RF: 0 azithromycin 250 mg tablet 250 mg PO DAILY 5 Days Qty: 5 RF: 0 tramadol 50 mg Tablet 50 mg PO BID PRN (Reason: Pain) RF: 0 azithromycin 500 mg tablet See Rx Instructions .ROUTE .COMPLEX Qty: 6 RF: 0 hydrocodone-homatropine 5-1.5 mg/5 mL (5 mL) syrup 5 ml PO Q6H PRN (Reason: cough) Qty: 60 RF: 0 hydrocodone-homatropine 5-1.5 mg/5 mL (5 mL) syrup 5 ml PO Q6H PRN (Reason: cough) Qty: 60 RF: 0 azithromycin 250 mg tablet 250 mg PO DAILY 4 Days Qty: 4 RF: 0 albuterol sulfate 90 mcg/actuation aerosol powdr breath activated 1 inh inhalation Q4-6H PRN (Reason: Gastric Reflux) RF: 0 lorazepam [Ativan] 2 mg tablet 2 mg PO BEDTIME PRN (Reason: Anxiety) RF: 0 Flovent HFA 110 mcg/actuation HFA aerosol inhaler 1 puff inhalation BID RF: 0 zolpidem [Ambien] 10 mg tablet 5 mg PO BEDTIME PRN (Reason: Anxiety) RF: 0 aspirin [Adult Low Dose Aspirin] 81 mg tablet,delayed release (DR/EC) 81 mg PO DAILY RF: 0 cholecalciferol (vitamin D3) 25 mcg (1,000 unit) capsule 25 mcg PO DAILY RF: 0 rosuvastatin [Crestor] 10 mg tablet 10 mg PO DAILY RF: 0 methocarbamol 500 mg tablet 500 mg PO QID PRN (Reason: Muscle Spasm) RF: 0 gabapentin [Neurontin] 400 mg capsule 400 mg PO DAILY RF: 0 pantoprazole [Protonix] 40 mg tablet,delayed release (DR/EC) 40 mg PO DAILY RF: 0 docusate sodium [Colace] 100 mg capsule 100 mg PO DAILY PRN (Reason: Constipation) RF: 0 ezetimibe [Zetia] 10 mg tablet 10 mg PO DAILY RF: 0 amlodipine [Norvasc] 5 mg tablet 5 mg PO DAILY RF: 0 Interventions: ED Discharge Assessment Last Done: 07/14/20 08:04
== END 2020-07-14 08:04 | disposition home or self-care (01) ==
PROVIDERS: Emergency Provider Student in an Organized Health Care Education/Training Program; PCP Family Medicine
DX: J45.909 Unspecified asthma, uncomplicated (principal); Z86.16 Personal history of COVID-19; I10 Essential (primary) hypertension
CPT/HCPCS: 99283

== ENCOUNTER 2020-07-21 15:55 | Outpatient (REF) | payer MEDICAID, SELFPAY ==
--- NOTE | 2020-07-21 15:59 | XR_ITS ---
EXAMINATION: XR CHEST CLINICAL INFORMATION: Cough COMPARISON: Previous chest x-ray most recent 06/28/2020 CTA of the chest 07/01/2020 TECHNIQUE: 2 views of the chest were obtained. FINDINGS: The cardiac and mediastinal contours are able. The previously identified infiltrate seen on chest CTA 07/01/2020. Improved. There may be increased central bronchial markings or bronchial wall thickening. There is a 4 mm dense left lower lobe nodule that is stable corresponding to a calcified granuloma when compared with previous chest CT. The lungs are otherwise clear and there is no pleural effusion or pneumothorax. There are degenerative changes of the spine and curvature of the lower thoracic and upper lumbar spine to the left. XR/XR chest 2V IMPRESSION: Improved infiltrates from June 2020. Question increased central bronchial markings or bronchial wall thickening.
== END 2020-07-21 15:56 | disposition home or self-care (01) ==
LOC: HO.XRAY 15:55
PROVIDERS: PCP Family Medicine; Visit Provider Nurse Practitioner Family
DX: R00.2 Palpitations (principal); R06.00 Dyspnea, unspecified; M25.561 Pain in right knee
CPT/HCPCS: 71046

== ENCOUNTER 2020-07-23 15:46 | Outpatient (REF) | payer MEDICAID, SELFPAY | END 2020-07-23 15:47 | disposition home or self-care (01) | LOC: HO.LAB 15:46 | PROVIDERS: Visit Provider Internal Medicine | DX: Z20.822 Contact with and (suspected) exposure to COVID-19 (principal) | CPT/HCPCS: 36415; C9803; U0003 ==

== ENCOUNTER 2020-07-29 15:25 | Outpatient (REF) | payer MEDICAID, SELFPAY | END 2020-07-29 15:26 | disposition home or self-care (01) | LOC: HO.CT 15:25 | PROVIDERS: PCP Family Medicine; Visit Provider Family Medicine | DX: Z13.89 Encounter for screening for other disorder (principal) ==

== ENCOUNTER 2020-07-29 17:01 | Emergency (ER) | payer MEDICAID, SELFPAY ==
--- NOTE | 2020-07-29 17:34 | CT_ITS ---
EXAMINATION: CT ANGIOGRAM OF THE CHEST WITH AND WITHOUT CONTRAST (CT PULMONARY ANGIOGRAM FOR PE) CLINICAL INFORMATION: Hypoxia, tachycardia COMPARISON: 07/01/2020 TECHNIQUE: Prior to contrast administration, noncontrast localization images were obtained. Subsequently, multidetector volumetric imaging was performed from the thoracic inlet to below the diaphragms following the administration of 80 mL Omnipaque 350 intravenous contrast. No contrast reaction reported Sagittal, coronal, and MIP oblique sagittal reformatted images were obtained on the CT workstation, uploaded to PACS, and reviewed. This CT examination was performed using dose optimization techniques as appropriate, variously including the following: *Automated exposure control *Adjustment of mA and/or kV according to patient size (this includes techniques or standardized protocols for targeted exams where dose is matched to indication/reason for exam; i.e. extremities or head) *Use of iterative reconstruction technique Total exam dose-length product 716 mGy-cm FINDINGS: QUALITY OF STUDY/CONTRAST BOLUS: Satisfactory. PULMONARY ARTERIES: No central or segmental pulmonary emboli. THORACIC AORTA: No aneurysm or dissection. LUNG: There are calcified granulomata. There is diffuse mosaic lung attenuation. No focal consolidation or mass. Previously seen patchy groundglass opacities have improved. PLEURA: No pleural effusion or pneumothorax. MEDIASTINUM: Normal heart size. No pericardial effusion. There is a prominent subcarinal lymph node. No hilar or paratracheal lymphadenopathy. No hilar or mediastinal lymphadenopathy. No evidence of septal bowing or right heart strain. CHEST WALL/AXILLA: No axillary or internal mammary lymphadenopathy. OSSEOUS STRUCTURES: No acute or suspicious osseous abnormality. UPPER ABDOMEN: Unremarkable. No reflux of contrast into the hepatic veins to suggest elevated right heart pressures. CT/CT angio chest PE protocol IMPRESSION: No pulmonary embolism seen. There is diffuse mosaic lung attenuation suggesting small airways disease. Previously seen patchy groundglass opacities have improved. VTE: negative
--- NOTE | 2020-07-29 17:34 | ECG_ITS ---
Test Reason : SOB Blood Pressure : / mmHG Vent. Rate : 083 BPM Atrial Rate : 083 BPM P-R Int : 124 ms QRS Dur : 076 ms QT Int : 372 ms P-R-T Axes : 027 -08 058 degrees QTc Int : 437 ms Normal sinus rhythm Minimal voltage criteria for LVH, may be normal variant Borderline ECG When compared with ECG of 28-JUN-2020 16:45, No significant change was found Referred By: Bertha Kelly Electronically Signed By:CORDELL MONTAGUE
--- NOTE | 2020-07-29 17:36 | ED.URI ---
HPI - URI/Sore Throat General Chief Complaint: Dyspnea Stated Complaint: LOW OXYGEN Time Seen by Provider: 07/29/20 17:22 Source: patient Mode of arrival: ambulatory Limitations: language barrier History of Present Illness HPI Narrative: 49-year-old female with past medical history of coronary artery disease, hypertension, hyperlipidemia, fatty liver disease, chronic pain, and positive COVID-19 in early June presents from her primary care physician's office for hypoxia and tachycardia. Primary care did order a CT for PE study however IV access was not able to be obtained and she was referred to the emergency department. MD elicited complaint: cough Pertinent past history: pneumonia, asthma and other (COVID-19) Onset (ago): month(s) Consistency: progressively worsening Severity: moderate Able to tolerate fluids by mouth: Yes Exacerbating factors: exertion Relieving factors: nothing Context: sick contacts Associated symptoms: headache, rhinorrhea, nasal congestion, cough and shortness of breath Treatments prior to arrival: cold medicine and antibiotics Related Data Home Medications Medication Instructions Recorded Confirmed albuterol sulfate 90 mcg/actuation 1 inh INHALATION Q4-6H PRN 03/26/20 06/11/20 breath activated powder inhaler amlodipine 5 mg tablet 5 mg PO DAILY 03/26/20 06/11/20 aspirin 81 mg tablet,delayed 81 mg PO DAILY 03/26/20 06/11/20 release cholecalciferol (vitamin D3) 25 25 mcg PO DAILY 03/26/20 06/11/20 mcg (1,000 unit) capsule docusate sodium 100 mg capsule 100 mg PO DAILY PRN 03/26/20 06/11/20 ezetimibe 10 mg tablet 10 mg PO DAILY 03/26/20 06/11/20 fluticasone propionate 110 1 puff INHALATION BID 03/26/20 06/11/20 mcg/actuation HFA aerosol inhaler gabapentin 400 mg capsule 400 mg PO DAILY 03/26/20 06/11/20 lorazepam 2 mg tablet 2 mg PO BEDTIME PRN 03/26/20 06/11/20 methocarbamol 500 mg tablet 500 mg PO QID PRN 03/26/20 06/11/20 pantoprazole 40 mg tablet,delayed 40 mg PO DAILY 03/26/20 06/11/20 release rosuvastatin 10 mg tablet 10 mg PO DAILY 03/26/20 06/11/20 zolpidem 10 mg tablet 5 mg PO BEDTIME PRN 03/26/20 06/11/20 tramadol 50 mg PO BID PRN 05/20/20 06/11/20 Previous Rx's Medication Instructions Recorded fenofibrate 54 mg tablet 54 mg PO DAILY 30 Days #30 tab 03/27/20 apixaban [Eliquis] See Rx Instructions .ROUTE 05/15/20 .COMPLEX #80 tab azithromycin 250 mg PO DAILY 4 Days #4 tab 06/28/20 azithromycin See Rx Instructions .ROUTE 06/28/20 .COMPLEX #6 tab hydrocodone-homatropine 5 ml PO Q6H PRN #60 ml 06/28/20 hydrocodone-homatropine 5 ml PO Q6H PRN #60 ml 06/28/20 azithromycin 250 mg PO DAILY 5 Days #5 tab 07/02/20 prednisone 50 mg PO DAILY #4 tab 07/02/20 Allergies Allergy/AdvReac Type Severity Reaction Status Date / Time loratadine [From CLARITIN] Allergy Mild CHILLS AND Verified 07/01/20 21:13 DIFF BREATHING Review of Systems Review of Systems: Constitutional: No Fever, no Chills, positive fatigue, no Malaise ENT/Mouth: No e sore throat, positive runny nose Eyes: No Discharge Cardiovascular: Positive tachycardia, No Chest Pain, positive SOB Respiratory: Positive Cough, positive Sputum, No Wheezing, No Smoke Exposure, positive Dyspnea Gastrointestinal: No Nausea, No Vomiting, No Diarrhea Genitourinary: no irregular bleeding, No Dysuria, No Urinary Frequency, No Hematuria, No Urinary Incontinence, No Urgency, No Flank Pain, Musculoskeletal: positive Myalgia Skin: No rash Neuro: No Headache Yes all other systems are reviewed and are negative [facility] Past Medical History Attestation statement: The following information was validated with the patient. Source: old records reviewed Medical History Acid reflux Coronary artery disease Fatty liver Fibromyalgia Gall bladder polyp Hyperlipidemia Hypertension Obesity (BMI 30-39.9) Sleep apnea Surgical History History of cardiac cath Family History Family History Paternal Grandfather No problems noted. Father History of cancer Lung cancer Mother No problems noted. Social History Social History Household Members: Significant Other and Children Housing: Apartment Alcohol intake: never Smoking Status: Former smoker Years Smoked: Prior smoker, no alcohol or drug use Second Hand Smoke Exposure: No Use of substances other than those prescribed or required for medical reasons: No Advance Directives: No service: No Current occupational status: disabled Physical Exam Vital Signs: Vital Signs: Last Vital Signs Temp 98.8 F 07/29/20 19:26 Pulse 94 07/29/20 19:26 Resp 18 07/29/20 19:26 BP 150/79 H 07/29/20 19:26 Pulse Ox 98 07/29/20 19:26 Body Mass Index 40.4 Appearance: Alert. Oriented X3. No acute distress. Eyes: Pupils equal, round and reactive to light. ENT: Pharynx normal. Neck: Normal inspection. Neck supple. CVS: Normal heart rate and rhythm. Pulses normal. Respiratory: No respiratory distress. Breath sounds normal. Abdomen: Soft and nontender. Skin: Skin warm and dry. Normal skin color. Normal skin turgor. Extremities: No lower extremity edema. Neuro: No motor deficit. No sensory deficit. Course Course Course Narrative: 49-year-old female past medical history of coronary artery disease, hypertension, hyperlipidemia, fatty liver disease, chronic pain, COVID positive in June of 2020 presents with prolonged symptoms of dyspnea and intermittent tachycardia. She was seen by her primary care physician earlier today, and primary care did order a CT PE rule out. IV access could not be obtained and primary care physician referred patient to the emergency department for further care. 20 gauge id started by this GEOLOGY FACULTY MEMBER to the right lateral antecubital space, 1st attempt. Patient tolerated procedure without difficulty. Will order labs and CT for PE rule out. CT PE negative. Labs are unremarkable and do not require emergent intervention. Patient was updated that she must follow-up with her primary care physician. No further care at this time as patient's O2 sats maintain above 95% on room air. firer electric locomotive utilized for all correspondence. Google translate utilized for discharge instructions. MDM - URI/Sore Throat MDM Narrative Medical decision making narrative: PE Differential Diagnosis Differential diagnosis: Likely upper respiratory infection, sinusitis, viral infection, bronchitis and influenza Medical Records Attestation: I reviewed the patient's medical records. Lab Data Attestation: I reviewed the patient's lab results. Result diagrams: 07/29/20 17:48 07/29/20 19:01 Labs: Lab Results 07/29/20 07/29/20 07/29/20 Range/Units 14:37 17:48 17:48 WBC 7.5 (4.8-10.8) X10*3/uL RBC 4.56 (4.20-5.50) X10*6/uL Hgb 14.1 (12.0-16.0) g/dl Hct 41.9 (37-47) % MCV 91.9 (80-98) fL MCH 30.9 (27.0-33.0) pg MCHC 33.7 (31.0-35.0) g/dl RDW 13.3 (11.0-16.0) % Plt Count 247 (160-400) X10*3/uL MPV 10.8 (9.4-12.3) fL Immature Gran % (Auto) 0.3 (0.0-0.4) % Neut % (Auto) 56.2 (45-73) % Lymph % (Auto) 35.1 (20-40) % [place] % (Auto) 7.6 (2-11) % Eos % (Auto) 0.7 (0-4) % Baso % (Auto) 0.1 (0-2) % Lymph # (Auto) 2.6 (1.2-4.9) X10*3/uL [place] # (Auto) 0.6 (0.1-1.2) X10*3/uL Eos # (Auto) 0.1 (0.0-0.4) X10*3/uL Baso # (Auto) 0.0 (0.0-0.2) X10*3/uL Abs Immat Gran (auto) 0.02 (0.00-0.03) X10*3/uL Absolute Neuts (auto) 4.2 (2.0-8.3) X10*3/uL Absolute Nucleated RBC 0.000 (0.0-0.012) X10*3/uL Nucleated RBC % (auto) 0.0 (0.0-0.2) /100WBC PT 12.0 (10.8-13.0) SEC INR 1.0 (0.9-1.1) APTT 36.0 D (24.1-38.0) SEC Sodium (135-145) mmol/L Potassium (3.3-5.1) mmol/L Chloride (96-108) mmol/L Carbon Dioxide (22-29) mmol/L Anion Gap (12-20) BUN (9-16) mg/dL Creatinine (0.5-1.4) mg/dL Estim Creat Clear Calc Estimated GFR POC Glucose (60-115) mg/dL Random Glucose (60-115) mg/dL Lactic Acid (0.5-2.0) mmol/L Calcium (8.4-10.2) mg/dL Magnesium (1.6-2.6) mg/dL Ferritin (10-250) ng/mL Total Bilirubin (0.0-1.0) mg/dL Direct Bilirubin (0.0-0.5) mg/dL AST (5-31) U/L ALT (0-31) U/L Alkaline Phosphatase (39-117) U/L Lactate Dehydrogenase (122-220) U/L Troponin I High Sens (<3.5-17.0) ng/L C-Reactive Protein (< or = 0.50) mg/dL B-Natriuretic Peptide (<100) pg/mL Total Protein (6.5-8.0) g/dL Albumin (3.5-5.0) g/dL Lipase (8-78) U/L Procalcitonin 0.02 ng/mL Coronavirus (PCR) (Negative) Influenza Type A (PCR) (Negative) Influenza Type B (PCR) (Negative) RSV RNA Qual (PCR) (Negative) 07/29/20 07/29/20 07/29/20 Range/Units 17:48 17:48 18:06 WBC (4.8-10.8) X10*3/uL RBC (4.20-5.50) X10*6/uL Hgb (12.0-16.0) g/dl Hct (37-47) % MCV (80-98) fL MCH (27.0-33.0) pg MCHC (31.0-35.0) g/dl RDW (11.0-16.0) % Plt Count (160-400) X10*3/uL MPV (9.4-12.3) fL Immature Gran % (Auto) (0.0-0.4) % Neut % (Auto) (45-73) % Lymph % (Auto) (20-40) % [place] % (Auto) (2-11) % Eos % (Auto) (0-4) % Baso % (Auto) (0-2) % Lymph # (Auto) (1.2-4.9) X10*3/uL [place] # (Auto) (0.1-1.2) X10*3/uL Eos # (Auto) (0.0-0.4) X10*3/uL Baso # (Auto) (0.0-0.2) X10*3/uL Abs Immat Gran (auto) (0.00-0.03) X10*3/uL Absolute Neuts (auto) (2.0-8.3) X10*3/uL Absolute Nucleated RBC (0.0-0.012) X10*3/uL Nucleated RBC % (auto) (0.0-0.2) /100WBC PT (10.8-13.0) SEC INR (0.9-1.1) APTT (24.1-38.0) SEC Sodium (135-145) mmol/L Potassium (3.3-5.1) mmol/L Chloride (96-108) mmol/L Carbon Dioxide (22-29) mmol/L Anion Gap (12-20) BUN (9-16) mg/dL Creatinine (0.5-1.4) mg/dL Estim Creat Clear Calc Estimated GFR POC Glucose (60-115) mg/dL Random Glucose (60-115) mg/dL Lactic Acid 1.4 (0.5-2.0) mmol/L Calcium (8.4-10.2) mg/dL Magnesium (1.6-2.6) mg/dL Ferritin (10-250) ng/mL Total Bilirubin (0.0-1.0) mg/dL Direct Bilirubin (0.0-0.5) mg/dL AST (5-31) U/L ALT (0-31) U/L Alkaline Phosphatase (39-117) U/L Lactate Dehydrogenase (122-220) U/L Troponin I High Sens < 3.5 (<3.5-17.0) ng/L C-Reactive Protein (< or = 0.50) mg/dL B-Natriuretic Peptide < 10 (<100) pg/mL Total Protein (6.5-8.0) g/dL Albumin (3.5-5.0) g/dL Lipase (8-78) U/L Procalcitonin ng/mL Coronavirus (PCR) NEGATIVE (Negative) Influenza Type A (PCR) NEGATIVE (Negative) Influenza Type B (PCR) NEGATIVE (Negative) RSV RNA Qual (PCR) NEGATIVE (Negative) 07/29/20 07/29/20 Range/Units 18:50 19:01 WBC (4.8-10.8) X10*3/uL RBC (4.20-5.50) X10*6/uL Hgb (12.0-16.0) g/dl Hct (37-47) % MCV (80-98) fL MCH (27.0-33.0) pg MCHC (31.0-35.0) g/dl RDW (11.0-16.0) % Plt Count (160-400) X10*3/uL MPV (9.4-12.3) fL Immature Gran % (Auto) (0.0-0.4) % Neut % (Auto) (45-73) % Lymph % (Auto) (20-40) % [place] % (Auto) (2-11) % Eos % (Auto) (0-4) % Baso % (Auto) (0-2) % Lymph # (Auto) (1.2-4.9) X10*3/uL [place] # (Auto) (0.1-1.2) X10*3/uL Eos # (Auto) (0.0-0.4) X10*3/uL Baso # (Auto) (0.0-0.2) X10*3/uL Abs Immat Gran (auto) (0.00-0.03) X10*3/uL Absolute Neuts (auto) (2.0-8.3) X10*3/uL Absolute Nucleated RBC (0.0-0.012) X10*3/uL Nucleated RBC % (auto) (0.0-0.2) /100WBC PT (10.8-13.0) SEC INR (0.9-1.1) APTT (24.1-38.0) SEC Sodium 141 (135-145) mmol/L Potassium 3.9 (3.3-5.1) mmol/L Chloride 105 (96-108) mmol/L Carbon Dioxide 25 (22-29) mmol/L Anion Gap 15 (12-20) BUN 10 (9-16) mg/dL Creatinine 0.78 (0.5-1.4) mg/dL Estim Creat Clear Calc 90.3 Estimated GFR > 60 POC Glucose 88 (60-115) mg/dL Random Glucose 91 (60-115) mg/dL Lactic Acid (0.5-2.0) mmol/L Calcium 9.6 D (8.4-10.2) mg/dL Magnesium 2.1 (1.6-2.6) mg/dL Ferritin 139 (10-250) ng/mL Total Bilirubin 0.5 (0.0-1.0) mg/dL Direct Bilirubin 0.2 (0.0-0.5) mg/dL AST 16 (5-31) U/L ALT 27 (0-31) U/L Alkaline Phosphatase 74 (39-117) U/L Lactate Dehydrogenase 210 (122-220) U/L Troponin I High Sens (<3.5-17.0) ng/L C-Reactive Protein 1.02 H (< or = 0.50) mg/dL B-Natriuretic Peptide (<100) pg/mL Total Protein 7.4 (6.5-8.0) g/dL Albumin 4.5 (3.5-5.0) g/dL Lipase 9 (8-78) U/L Procalcitonin ng/mL Coronavirus (PCR) (Negative) Influenza Type A (PCR) (Negative) Influenza Type B (PCR) (Negative) RSV RNA Qual (PCR) (Negative) Imaging Data CT chest PE study: Attestation: I personally reviewed and interpreted this imaging study as follows: Radiologist's impression: EXAMINATION: CT ANGIOGRAM OF THE CHEST WITH AND WITHOUT CONTRAST (CT PULMONARY ANGIOGRAM FOR PE) CLINICAL INFORMATION: Hypoxia, tachycardia COMPARISON: 07/01/2020 TECHNIQUE: Prior to contrast administration, noncontrast localization images were obtained. Subsequently, multidetector volumetric imaging was performed from the thoracic inlet to below the diaphragms following the administration of 80 mL Omnipaque 350 intravenous contrast. No contrast reaction reported Sagittal, coronal, and MIP oblique sagittal reformatted images were obtained on the CT workstation, uploaded to PACS, and reviewed. This CT examination was performed using dose optimization techniques as appropriate, variously including the following: *Automated exposure control *Adjustment of mA and/or kV according to patient size (this includes techniques or standardized protocols for targeted exams where dose is matched to indication/reason for exam; i.e. extremities or head) *Use of iterative reconstruction technique Total exam dose-length product 716 mGy-cm FINDINGS: QUALITY OF STUDY/CONTRAST BOLUS: Satisfactory. PULMONARY ARTERIES: No central or segmental pulmonary emboli. THORACIC AORTA: No aneurysm or dissection. LUNG: There are calcified granulomata. There is diffuse mosaic lung attenuation. No focal consolidation or mass. Previously seen patchy groundglass opacities have improved. PLEURA: No pleural effusion or pneumothorax. MEDIASTINUM: Normal heart size. No pericardial effusion. There is a prominent subcarinal lymph node. No hilar or paratracheal lymphadenopathy. No hilar or mediastinal lymphadenopathy. No evidence of septal bowing or right heart strain. CHEST WALL/AXILLA: No axillary or internal mammary lymphadenopathy. OSSEOUS STRUCTURES: No acute or suspicious osseous abnormality. UPPER ABDOMEN: Unremarkable. No reflux of contrast into the hepatic veins to suggest elevated right heart pressures. CT/CT angio chest PE protocol IMPRESSION: No pulmonary embolism seen. There is diffuse mosaic lung attenuation suggesting small airways disease. Previously seen patchy groundglass opacities have improved. VTE: negative ECG Data Attestation: I personally reviewed and interpreted this ECG as follows: ECG interpretation date: 07/29/20 ECG interpretation time: 18:52 Interpretation: Ventricular rate 83, PA 124, QRS 76, QT 372, QTC 437, normal sinus rhythm, minimal voltage criteria for LVH Discharge Plan Discharge Clinical Impression: Persistent dyspnea after COVID-19 Hypertension Qualifiers: Hypertension type: essential hypertension Qualified Code(s): I10 - Essential (primary) hypertension Patient Disposition: Home, Self-Care Instructions: Hypertension (ED), Shortness of Breath (ED), COVID-19 (Coronavirus Disease 2019) (ED) Additional Instructions: Se le evalu? la dificultad para respirar y la taquicardia. La angiograf?a por tomograf?a computarizada para la EP fue negativa para la embolia pulmonar. No tiene co?gulos de myke en los pulmones. Los s?ntomas que est? experimentando son s?ntomas prolongados constantes de COVID-19. Por favor, contin?e haciendo un seguimiento con el m?dico de atenci?n primaria en 2 d?as. seguir tomando varsha medicamentos seg?n las instrucciones. Marychuy por elegir alex departamento de emergencias para la evaluaci?n. Por favor, thanh un seguimiento con el m?dico de atenci?n primaria seg?n sea necesario. Regrese al servicio de urgencias para cualquier s?ntoma nuevo, preocupante o que empeore. You were evaluated for shortness of breath and tachycardia. CT angiograph for PE rule out was negative for pulmonary embolism. You do not have any blood clots in your lungs. The symptoms you are experiencing are consistent prolonged symptoms of COVID-19. Please continue to follow-up with primary care physician in 2 days. continue to take your medications as directed. Thank you for choosing this emergency department for evaluation. Please follow-up with primary care physician as needed. Return to the emergency department for any new, concerning, or worsening symptoms. Prescriptions: No Action fenofibrate 54 mg tablet 54 mg PO DAILY 30 Days Qty: 30 RF: 5 Eliquis 5 mg tablet See Rx Instructions .ROUTE .COMPLEX Qty: 80 RF: 0 prednisone 50 mg tablet 50 mg PO DAILY Qty: 4 RF: 0 azithromycin 250 mg tablet 250 mg PO DAILY 5 Days Qty: 5 RF: 0 tramadol 50 mg Tablet 50 mg PO BID PRN (Reason: Pain) RF: 0 azithromycin 500 mg tablet See Rx Instructions .ROUTE .COMPLEX Qty: 6 RF: 0 hydrocodone-homatropine 5-1.5 mg/5 mL (5 mL) syrup 5 ml PO Q6H PRN (Reason: cough) Qty: 60 RF: 0 hydrocodone-homatropine 5-1.5 mg/5 mL (5 mL) syrup 5 ml PO Q6H PRN (Reason: cough) Qty: 60 RF: 0 azithromycin 250 mg tablet 250 mg PO DAILY 4 Days Qty: 4 RF: 0 albuterol sulfate 90 mcg/actuation aerosol powdr breath activated 1 inh inhalation Q4-6H PRN (Reason: Gastric Reflux) RF: 0 lorazepam [Ativan] 2 mg tablet 2 mg PO BEDTIME PRN (Reason: Anxiety) RF: 0 Flovent HFA 110 mcg/actuation HFA aerosol inhaler 1 puff inhalation BID RF: 0 zolpidem [Ambien] 10 mg tablet 5 mg PO BEDTIME PRN (Reason: Anxiety) RF: 0 aspirin [Adult Low Dose Aspirin] 81 mg tablet,delayed release (DR/EC) 81 mg PO DAILY RF: 0 cholecalciferol (vitamin D3) 25 mcg (1,000 unit) capsule 25 mcg PO DAILY RF: 0 rosuvastatin [Crestor] 10 mg tablet 10 mg PO DAILY RF: 0 methocarbamol 500 mg tablet 500 mg PO QID PRN (Reason: Muscle Spasm) RF: 0 gabapentin [Neurontin] 400 mg capsule 400 mg PO DAILY RF: 0 pantoprazole [Protonix] 40 mg tablet,delayed release (DR/EC) 40 mg PO DAILY RF: 0 docusate sodium [Colace] 100 mg capsule 100 mg PO DAILY PRN (Reason: Constipation) RF: 0 ezetimibe [Zetia] 10 mg tablet 10 mg PO DAILY RF: 0 amlodipine [Norvasc] 5 mg tablet 5 mg PO DAILY RF: 0 Interventions: ED Discharge Assessment Last Done: 07/29/20 20:02 Discharge Date/Time: 07/29/20 20:17 Print Language: Latvian
[2020-07-29 17:38] VITALS: BMI 40.4
[2020-07-29 17:59] LABS: MANUAL DIFF FLAG NO
[2020-07-29 18:02] LABS: Basophils Percent Auto 0.1 % (0-2); Eosinophils Absolute Auto 0.1 X10*3/uL (0.0-0.4); Eosinophils Percent Auto 0.7 % (0-4); Hematocrit 41.9 % (37-47); Hemoglobin 14.1 g/dl (12.0-16.0); Imm Gran Abs Auto 0.02 X10*3/uL (0.00-0.03); Imm Gran Pct Auto 0.3 % (0.0-0.4); Lymphocytes Absolute Auto 2.6 X10*3/uL (1.2-4.9); Lymphocytes Percent Auto 35.1 % (20-40); Mean Corpuscular HGB Conc 33.7 g/dl (31.0-35.0); Mean Corpuscular Hemoglobin 30.9 pg (27.0-33.0); Mean Corpuscular Volume 91.9 fL (80-98); Mean Platelet Volume 10.8 fL (9.4-12.3); Monocytes Absolute Auto 0.6 X10*3/uL (0.1-1.2); Monocytes Percent Auto 7.6 % (2-11); Neutrophils Absolute Auto 4.2 X10*3/uL (2.0-8.3); Neutrophils Percent Auto 56.2 % (45-73); Platelet Count 247 X10*3/uL (160-400); Red Blood Count 4.56 X10*6/uL (4.20-5.50); Red Cell Distribution Width 13.3 % (11.0-16.0); White Blood Count 7.5 X10*3/uL (4.8-10.8)
[2020-07-29 18:26] LABS: Lactic Acid 1.4 mmol/L (0.5-2.0)
[2020-07-29 18:30] VITALS: BP 126/68; PULSE 89; RESP 21; TEMP 37.1; O2SAT 98
[2020-07-29 19:07] LABS: Glucose, Whole Blood 88 mg/dL (60-115)
[2020-07-29 19:14] LABS: B Type Natriuretic Peptide < 10 pg/mL (<100); Troponin-I High Sensitivity < 3.5 ng/L (<3.5-17.0)
[2020-07-29 19:26] VITALS: BP 150/79; PULSE 94; RESP 18; TEMP 37.1; O2SAT 98
[2020-07-29 19:27] LABS: Influenza A PCR NEGATIVE (Negative); Influenza B PCR NEGATIVE (Negative); Resp Syncy Virus RNA Qual PCR NEGATIVE (Negative); SARS COV2 PCR INHOUSE NEGATIVE (Negative)
[2020-07-29 19:34] LABS: Alanine Aminotransferase 27 U/L (0-31); Albumin Level 4.5 g/dL (3.5-5.0); Alkaline Phosphatase 74 U/L (39-117); Anion Gap 15 (12-20); Aspartate Amino Transferase 16 U/L (5-31); Bilirubin Direct 0.2 mg/dL (0.0-0.5); Bilirubin Total 0.5 mg/dL (0.0-1.0); Blood Urea Nitrogen 10 mg/dL (9-16); C Reactive Protein 1.02 mg/dL (< or = 0.50); Calcium 9.6 mg/dL (8.4-10.2); Carbon Dioxide 25 mmol/L (22-29); Chloride 105 mmol/L (96-108); Creatinine Clr Calc Pharmacy 90.3; Estimated Glomerular Filt Rate > 60; Glucose Random 91 mg/dL (60-115); Lactate Dehydrogenase 210 U/L (122-220); Lipase 9 U/L (8-78); Magnesium 2.1 mg/dL (1.6-2.6); Potassium 3.9 mmol/L (3.3-5.1); Sodium 141 mmol/L (135-145); Total Protein 7.4 g/dL (6.5-8.0)
[2020-07-29 19:53] LABS: Procalcitonin 0.02 ng/mL
[2020-07-29 19:54] LABS: Ferritin 139 ng/mL (10-250)
== END 2020-07-29 20:17 | disposition home or self-care (01) ==
PROVIDERS: Nurse Practitioner Family; Emergency Provider Emergency Medicine; PCP Family Medicine
DX: R06.09 Other forms of dyspnea (principal); Z86.16 Personal history of COVID-19; R00.0 Tachycardia, unspecified; I10 Essential (primary) hypertension; E78.5 Hyperlipidemia, unspecified; Z87.891 Personal history of nicotine dependence; Z79.899 Other long term (current) drug therapy
CPT/HCPCS: 0241U; 36415; 71275; 80048; 80076; 82728; 82947; 83605; 83615; 83690; 83735; 83880; 84145; 84484; 85025; 85610; 85730; 86140; 87040; 93005; 99284

== ENCOUNTER 2020-08-21 12:37 | Outpatient (REF) | payer MEDICAID, SELFPAY ==
[2020-08-21 13:37] LABS: Cholesterol 250 mg/dL; HDL Cholesterol 44 mg/dL; LDL Cholesterol Calculated 154 mg/dl; Triglycerides 260 mg/dL
== END 2020-08-21 12:38 | disposition home or self-care (01) ==
LOC: HO.LAB 12:37
PROVIDERS: Absent Provider Physician Assistant; PCP Family Medicine; Visit Provider Nurse Practitioner Family
DX: I25.10 Atherosclerotic heart disease of native coronary artery without angina pectoris (principal); E78.5 Hyperlipidemia, unspecified
CPT/HCPCS: 36415; 80061

== ENCOUNTER 2020-08-27 07:20 | Emergency (ER) | payer MEDICAID, SELFPAY ==
[2020-08-27 07:33] VITALS: BP 141/81; PULSE 113; RESP 20; TEMP 37.3; O2SAT 97; BMI 40.4
--- NOTE | 2020-08-27 07:33 | ED.URI ---
HPI - URI/Sore Throat General Chief Complaint: General Medical Stated Complaint: sore throat, difficulty swallowing Time Seen by Provider: 08/27/20 07:33 Source: patient Mode of arrival: ambulatory Limitations: no limitations History of Present Illness MD elicited complaint: sore throat Onset (ago): day(s) (5) Consistency: progressively worsening Severity: moderate Description of mucous: clear Able to tolerate fluids by mouth: Yes Exacerbating factors: swallowing Relieving factors: nothing Associated symptoms: denies other symptoms Treatments prior to arrival: none Related Data Home Medications Medication Instructions Recorded Confirmed albuterol sulfate 90 mcg/actuation 1 inh INHALATION Q4-6H PRN 03/26/20 08/12/20 breath activated powder inhaler amlodipine 5 mg tablet 5 mg PO DAILY 03/26/20 08/12/20 aspirin 81 mg tablet,delayed 81 mg PO DAILY 03/26/20 08/12/20 release cholecalciferol (vitamin D3) 25 25 mcg PO DAILY 03/26/20 08/12/20 mcg (1,000 unit) capsule docusate sodium 100 mg capsule 100 mg PO DAILY PRN 03/26/20 08/12/20 fluticasone propionate 110 1 puff INHALATION BID 03/26/20 08/12/20 mcg/actuation HFA aerosol inhaler gabapentin 400 mg capsule 400 mg PO DAILY 03/26/20 08/12/20 lorazepam 2 mg tablet 2 mg PO BEDTIME PRN 03/26/20 08/12/20 methocarbamol 500 mg tablet 500 mg PO QID PRN 03/26/20 08/12/20 pantoprazole 40 mg tablet,delayed 40 mg PO DAILY 03/26/20 08/12/20 release rosuvastatin 10 mg tablet 10 mg PO DAILY 03/26/20 08/12/20 zolpidem 10 mg tablet 5 mg PO BEDTIME PRN 03/26/20 08/12/20 tramadol 50 mg PO BID PRN 05/20/20 06/11/20 Previous Rx's Medication Instructions Recorded fenofibrate 54 mg tablet 54 mg PO DAILY 30 Days #30 tab 03/27/20 apixaban [Eliquis] See Rx Instructions .ROUTE 05/15/20 .COMPLEX #80 tab hydrocodone-homatropine 5 ml PO Q6H PRN #60 ml 06/28/20 ezetimibe 10 mg tablet 10 mg PO DAILY 90 Days #90 tab 08/24/20 amoxicillin 500 mg PO BID 10 Days #20 cap 08/27/20 Allergies Allergy/AdvReac Type Severity Reaction Status Date / Time loratadine [From CLARITIN] Allergy Mild CHILLS AND Verified 07/01/20 21:13 DIFF BREATHING Review of Systems Review of Systems: Constitutional : no Fever, positive Chills, no fatigue, no Malaise ENT/Mouth : positive sore throat, no runny nose Eyes: No Discharge Cardiovascular : No Chest Pain, No SOB Respiratory : No Cough, No Sputum Gastrointestinal : No Nausea, No Vomiting, No Diarrhea Genitourinary : No Dysuria, No Urinary Frequency Musculoskeletal : no Myalgia Skin : No rash Neuro : No Headache PMFSH Past Medical History Medical History Acid reflux Coronary artery disease Fatty liver Fibromyalgia Gall bladder polyp Hyperlipidemia Hypertension Obesity (BMI 30-39.9) Sleep apnea Surgical History History of cardiac cath Family History Family History (Updated 08/12/20 @ 14:56 by Rosalva Mckeon) Paternal Grandfather No problems noted. Father History of cancer Lung cancer Mother Heart disease Social History Social History Household Members: Significant Other and Children Housing: Apartment Alcohol intake: never Smoking Status: Former smoker Years Smoked: Prior smoker, no alcohol or drug use Second Hand Smoke Exposure: No Advance Directives: No Advance Directives Information Provided: No service: No Current occupational status: disabled Physical Exam Vital Signs: Vital Signs: Last Vital Signs Temp 99.2 F 08/27/20 07:33 Pulse 113 H 08/27/20 07:33 Resp 20 08/27/20 07:33 BP 141/81 H 08/27/20 07:33 Pulse Ox 97 08/27/20 07:33 Body Mass Index 40.4 Appearance: Alert. Oriented X3. No acute distress. Eyes: Pupils equal, round and reactive to light. ENT: bilateral TMs normal, pharynx moderate erythema, mild swelilng, uvula midline, white exudates on tonsils noted, symmetric appearance Neck: Normal inspection. Neck supple. mild anterior cervical LAD CVS: Normal heart rate and rhythm. Pulses normal. Respiratory: No respiratory distress. Breath sounds normal. Abdomen: Soft and nontender. Skin: Skin warm and dry. Normal skin color. Normal skin turgor. Extremities: No lower extremity edema. No calf ttp Neuro: Oriented X 3. No motor deficit. No sensory deficit. 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 SPECIALIST or deeper space infection, start on amoxicillin and DC home Discharge Plan Discharge Clinical Impression: Pharyngitis Qualifiers: Pharyngitis/tonsillitis etiology: streptococcus Qualified Code(s): J02.0 - Streptococcal pharyngitis Patient Disposition: Home, Self-Care Instructions: Strep Throat (ED) Additional Instructions: return to ED for any worsening symptoms or concerns Prescriptions: New amoxicillin 500 mg capsule 500 mg PO BID 10 Days Qty: 20 RF: 0 No Action fenofibrate 54 mg tablet 54 mg PO DAILY 30 Days Qty: 30 RF: 5 ezetimibe 10 mg tablet 10 mg PO DAILY 90 Days Qty: 90 RF: 3 Eliquis 5 mg tablet See Rx Instructions .ROUTE .COMPLEX Qty: 80 RF: 0 tramadol 50 mg Tablet 50 mg PO BID PRN (Reason: Pain) RF: 0 hydrocodone-homatropine 5-1.5 mg/5 mL (5 mL) syrup 5 ml PO Q6H PRN (Reason: cough) Qty: 60 RF: 0 albuterol sulfate 90 mcg/actuation aerosol powdr breath activated 1 inh inhalation Q4-6H PRN (Reason: Gastric Reflux) RF: 0 lorazepam [Ativan] 2 mg tablet 2 mg PO BEDTIME PRN (Reason: Anxiety) RF: 0 Flovent HFA 110 mcg/actuation HFA aerosol inhaler 1 puff inhalation BID RF: 0 zolpidem [Ambien] 10 mg tablet 5 mg PO BEDTIME PRN (Reason: Anxiety) RF: 0 aspirin [Adult Low Dose Aspirin] 81 mg tablet,delayed release (DR/EC) 81 mg PO DAILY RF: 0 cholecalciferol (vitamin D3) 25 mcg (1,000 unit) capsule 25 mcg PO DAILY RF: 0 rosuvastatin [Crestor] 10 mg tablet 10 mg PO DAILY RF: 0 methocarbamol 500 mg tablet 500 mg PO QID PRN (Reason: Muscle Spasm) RF: 0 gabapentin [Neurontin] 400 mg capsule 400 mg PO DAILY RF: 0 pantoprazole [Protonix] 40 mg tablet,delayed release (DR/EC) 40 mg PO DAILY RF: 0 docusate sodium [Colace] 100 mg capsule 100 mg PO DAILY PRN (Reason: Constipation) RF: 0 amlodipine [Norvasc] 5 mg tablet 5 mg PO DAILY RF: 0 Print Language: Kazakh
[2020-08-27] MEDS: Acetaminophen 325 MG TABLET 650 MG PO (07:52)
[2020-08-27] MEDS: Amoxicillin 500 MG CAPSULE PO (07:52)
== END 2020-08-27 07:54 | disposition home or self-care (01) ==
LOC: HO.ED 07:47
PROVIDERS: Emergency Provider Emergency Medicine; PCP Family Medicine
DX: J02.0 Streptococcal pharyngitis (principal); I10 Essential (primary) hypertension; E78.5 Hyperlipidemia, unspecified; Z79.82 Long term (current) use of aspirin; Z79.899 Other long term (current) drug therapy
CPT/HCPCS: 99283

== ENCOUNTER 2020-09-02 22:01 | Emergency (ER) | payer MEDICAID, SELFPAY ==
[2020-09-02 22:47] VITALS: BP 156/97; PULSE 122; RESP 18; TEMP 37.7; O2SAT 98; BMI 41.0
[2020-09-02 23:48] VITALS: BP 156/81; PULSE 104; RESP 18
--- NOTE | 2020-09-02 23:55 | ED_ITS ---
HPI - Headache General Chief Complaint: Headache Stated Complaint: Headache Time Seen by Provider: 09/02/20 23:52 Source: patient and client coordinator Mode of arrival: ambulatory History of Present Illness HPI Narrative: This is a 49-year-old female with multiple comorbidities who presents with onset of headache since reinforcement maker that patient states is squeezing in nature and goes from the back of her neck up into the posterior head and is squeezes around her head. She states that this is been associated with some mild nausea but denies vomiting, fevers, chills, diarrhea, urinary pain/burning/frequency. Patient denies any double vision, blurred vision, extremity weakness/numbness/tingling. Related Data Home Medications Medication Instructions Recorded Confirmed albuterol sulfate 90 mcg/actuation 1 inh INHALATION Q4-6H PRN 03/26/20 08/12/20 breath activated powder inhaler amlodipine 5 mg tablet 5 mg PO DAILY 03/26/20 08/12/20 aspirin 81 mg tablet,delayed 81 mg PO DAILY 03/26/20 08/12/20 release cholecalciferol (vitamin D3) 25 25 mcg PO DAILY 03/26/20 08/12/20 mcg (1,000 unit) capsule docusate sodium 100 mg capsule 100 mg PO DAILY PRN 03/26/20 08/12/20 fluticasone propionate 110 1 puff INHALATION BID 03/26/20 08/12/20 mcg/actuation HFA aerosol inhaler gabapentin 400 mg capsule 400 mg PO DAILY 03/26/20 08/12/20 lorazepam 2 mg tablet 2 mg PO BEDTIME PRN 03/26/20 08/12/20 methocarbamol 500 mg tablet 500 mg PO QID PRN 03/26/20 08/12/20 pantoprazole 40 mg tablet,delayed 40 mg PO DAILY 03/26/20 08/12/20 release zolpidem 10 mg tablet 5 mg PO BEDTIME PRN 03/26/20 08/12/20 tramadol 50 mg PO BID PRN 05/20/20 06/11/20 rosuvastatin 40 mg tablet 40 mg PO DAILY 08/27/20 Previous Rx's Medication Instructions Recorded fenofibrate 54 mg tablet 54 mg PO DAILY 30 Days #30 tab 03/27/20 apixaban [Eliquis] See Rx Instructions .ROUTE 11/20/20 .COMPLEX #80 tab hydrocodone-homatropine 5 ml PO Q6H PRN #60 ml 06/28/20 ezetimibe 10 mg tablet 10 mg PO DAILY 90 Days #90 tab 08/24/20 alirocumab 75 mg/mL subcutaneous 75 mg SUBCUT Q2W 90 Days #7 ml 08/27/20 pen injector amoxicillin 500 mg PO BID 10 Days #20 cap 08/27/20 Allergies Allergy/AdvReac Type Severity Reaction Status Date / Time loratadine [From CLARITIN] Allergy Mild CHILLS AND Verified 09/02/20 22:51 DIFF BREATHING Review of Systems Review of Systems: Pertinent positives and negatives as stated in HPI and 10 point review of systems is otherwise negative. [facility] Past Medical History Source: nursing notes reviewed Medical History Acid reflux Coronary artery disease Fatty liver Fibromyalgia Gall bladder polyp Hyperlipidemia Hypertension Obesity (BMI 30-39.9) Sleep apnea Surgical History History of cardiac cath Family History Family History Paternal Grandfather No problems noted. Father History of cancer Lung cancer Mother Heart disease Social History Social History Household Members: Significant Other and Children Housing: Apartment Alcohol intake: never Smoking Status: Never smoker Years Smoked: Prior smoker, no alcohol or drug use Second Hand Smoke Exposure: No Use of substances other than those prescribed or required for medical reasons: No Advance Directives: No Advance Directives Information Provided: No service: No Current occupational status: disabled Physical Exam Vital Signs: Vital Signs: Last Vital Signs Temp 99.8 F 09/02/20 22:47 Pulse 93 09/03/20 02:40 Resp 18 09/03/20 02:40 BP 143/77 H 09/03/20 02:40 Pulse Ox 98 09/02/20 22:47 Body Mass Index 41.0 VITAL SIGNS: Reviewed. GENERAL: Well developed, well nourished, in no acute distress. HEAD: Normocephalic/atraumatic, EYES: PERRLA, EOMI intact without pain, no nystagmus EARS: Ext canals without abnormality, TMs non-bulging and non-erythematous NOSE: Nares patent bilateral OROPHARYNX: no oral lesions noted, posterior pharynx clear , moist mucosa NECK: Supple, no adenopathy LUNGS: Normal breath sounds. No adventitious sounds or accessory muscle use. SpO2<98> CARDIOVASCULAR: Regular rate and rhythm without noted murmurs, no JVD or lower extremity edema. ABDOMEN: Soft, non-tender, non-distended with bowel sounds. MUSCULOSKELETAL: No tenderness, deformities, or effusions noted on gross inspection. EXTREMITIES: No cyanosis, clubbing or edema. SKIN: Inspection of the skin reveals no rashes, ulcerations, jaundice, pallor, or petechiae. NEUROLOGIC: Alert and oriented x 4. Strength and sensation to light touch were grossly intact x 4, no facial asymmetry, cranial nerves 2-12 are grossly intact, no evidence of pronator drift or cerebellar deficits. Course Course Course Narrative: This is a 49-year-old female with history and clinical presentation consistent with tension, migraine headache in nature with the photosensitivity and nausea being described. There is low clinical suspicion for meningitis or alternative neuro etiologies. -labs, UA, Tylenol, Toradol, 1 L IV fluids, Reglan, Benadryl Of all investigations and re-evaluation there are no acute findings to otherwise explain patient's presentation other than likely tension headache and patient reports resolution of her headache after receiving the above interventions. All results and findings were discussed with her at bedside and she was discharged to follow-up with her primary care provider in stable condition. MDM - Headache Lab Data Result diagrams: 09/03/20 01:30 09/03/20 01:30 Labs: Lab Results 09/03/20 09/03/20 Range/Units 01:30 01:30 WBC 9.2 (4.8-10.8) X10*3/uL RBC 4.16 L (4.20-5.50) X10*6/uL Hgb 12.9 (12.0-16.0) g/dl Hct 38.4 (37-47) % MCV 92.3 (80-98) fL MCH 31.0 (27.0-33.0) pg MCHC 33.6 (31.0-35.0) g/dl RDW 13.0 (11.0-16.0) % Plt Count 272 (160-400) X10*3/uL MPV 10.4 (9.4-12.3) fL Immature Gran % (Auto) 0.2 (0.0-0.4) % Neut % (Auto) 48.0 (45-73) % Lymph % (Auto) 41.5 H (20-40) % Osborne % (Auto) 9.7 (2-11) % Eos % (Auto) 0.4 (0-4) % Baso % (Auto) 0.2 (0-2) % Lymph # (Auto) 3.8 (1.2-4.9) X10*3/uL Osborne # (Auto) 0.9 (0.1-1.2) X10*3/uL Eos # (Auto) 0.0 (0.0-0.4) X10*3/uL Baso # (Auto) 0.0 (0.0-0.2) X10*3/uL Abs Immat Gran (auto) 0.02 (0.00-0.03) X10*3/uL Absolute Neuts (auto) 4.4 (2.0-8.3) X10*3/uL Absolute Nucleated RBC 0.000 (0.0-0.012) X10*3/uL Nucleated RBC % (auto) 0.0 (0.0-0.2) /100WBC Sodium 139 (135-145) mmol/L Potassium 4.0 (3.3-5.1) mmol/L Chloride 104 (96-108) mmol/L Carbon Dioxide 27 (22-29) mmol/L Anion Gap 12 (12-20) BUN 18 H D (9-16) mg/dL Creatinine 1.09 (0.5-1.4) mg/dL Estim Creat Clear Calc 65.1 Estimated GFR 54 Random Glucose 105 (60-115) mg/dL Calcium 10.1 (8.4-10.2) mg/dL Total Bilirubin 0.2 (0.0-1.0) mg/dL AST 21 (5-31) U/L ALT 31 (0-31) U/L Alkaline Phosphatase 69 (39-117) U/L Total Protein 7.4 (6.5-8.0) g/dL Albumin 4.6 (3.5-5.0) g/dL Discharge Plan Discharge Clinical Impression: Headache Qualifiers: Headache type: tension-type Headache chronicity pattern: acute headache Intractability: not intractable Qualified Code(s): G44.209 - Tension-type hea dache, unspecified, not intractable Patient Disposition: Home, Self-Care Instructions: Tension Headache (ED), Migraine Headache (ED) Additional Instructions: 1. Tylenol 1000 mg, por v?a oral, cada 6 horas seg?n sea necesario para el dolor de nolan. No exceda los 4000 mg en 24 horas. 2. Ibuprofeno 400 mg, por v?a oral con leche o alimentos, cada 6 horas seg?n sea necesario para el dolor de nolan. 3. Incrementar la hidrataci?n de los fluidos especialmente con agua. 4. Saeid un seguimiento con penn proveedor de atenci?n primaria para conversar m?s sobre penn dolor de nolan y considere llevar un diario en daija de que alex dolor de nolan vuelva. No dude en volver al servicio de urgencias si los s?ntomas empeoran. Prescriptions: No Action fenofibrate 54 mg tablet 54 mg PO DAILY 30 Days Qty: 30 RF: 5 ezetimibe 10 mg tablet 10 mg PO DAILY 90 Days Qty: 90 RF: 3 rosuvastatin [Crestor] 40 mg tablet 40 mg PO DAILY RF: 0 Praluent Pen 75 mg/mL pen injector 75 mg subcut Q2W 90 Days Qty: 7 RF: 3 Eliquis 5 mg tablet See Rx Instructions .ROUTE .COMPLEX Qty: 80 RF: 0 tramadol 50 mg Tablet 50 mg PO BID PRN (Reason: Pain) RF: 0 hydrocodone-homatropine 5-1.5 mg/5 mL (5 mL) syrup 5 ml PO Q6H PRN (Reason: cough) Qty: 60 RF: 0 amoxicillin 500 mg capsule 500 mg PO BID 10 Days Qty: 20 RF: 0 albuterol sulfate 90 mcg/actuation aerosol powdr breath activated 1 inh inhalation Q4-6H PRN (Reason: Gastric Reflux) RF: 0 lorazepam [Ativan] 2 mg tablet 2 mg PO BEDTIME PRN (Reason: Anxiety) RF: 0 Flovent HFA 110 mcg/actuation HFA aerosol inhaler 1 puff inhalation BID RF: 0 zolpidem [Ambien] 10 mg tablet 5 mg PO BEDTIME PRN (Reason: Anxiety) RF: 0 aspirin [Adult Low Dose Aspirin] 81 mg tablet,delayed release (DR/EC) 81 mg PO DAILY RF: 0 cholecalciferol (vitamin D3) 25 mcg (1,000 unit) capsule 25 mcg PO DAILY RF: 0 methocarbamol 500 mg tablet 500 mg PO QID PRN (Reason: Muscle Spasm) RF: 0 gabapentin [Neurontin] 400 mg capsule 400 mg PO DAILY RF: 0 pantoprazole [Protonix] 40 mg tablet,delayed release (DR/EC) 40 mg PO DAILY RF: 0 docusate sodium [Colace] 100 mg capsule 100 mg PO DAILY PRN (Reason: Constipation) RF: 0 amlodipine [Norvasc] 5 mg tablet 5 mg PO DAILY RF: 0 Referrals: Ava Yap DO [Primary Care Provider] - 2 days (Re-evaluation for suspected tension versus migraine headache.) Print Language: Tuvaluan
[2020-09-03] VITALS: BP 146/76; RESP 16
[2020-09-03] MEDS: 0.9 % Sodium Chloride 1,000 ML 999 ML IV (01:35)
[2020-09-03 01:36] LABS: Basophils Percent Auto 0.2 % (0-2); Eosinophils Percent Auto 0.4 % (0-4); Hematocrit 38.4 % (37-47); Hemoglobin 12.9 g/dl (12.0-16.0); Imm Gran Abs Auto 0.02 X10*3/uL (0.00-0.03); Imm Gran Pct Auto 0.2 % (0.0-0.4); Lymphocytes Absolute Auto 3.8 X10*3/uL (1.2-4.9); Lymphocytes Percent Auto 41.5 % (20-40); MANUAL DIFF FLAG NO; Mean Corpuscular HGB Conc 33.6 g/dl (31.0-35.0); Mean Corpuscular Volume 92.3 fL (80-98); Mean Platelet Volume 10.4 fL (9.4-12.3); Monocytes Absolute Auto 0.9 X10*3/uL (0.1-1.2); Monocytes Percent Auto 9.7 % (2-11); Neutrophils Absolute Auto 4.4 X10*3/uL (2.0-8.3); Platelet Count 272 X10*3/uL (160-400); Red Blood Count 4.16 X10*6/uL (4.20-5.50); White Blood Count 9.2 X10*3/uL (4.8-10.8)
[2020-09-03] MEDS: Acetaminophen 325 MG TABLET 975 MG PO (01:38)
[2020-09-03] MEDS: Metoclopramide HCl 10 MG/2 ML VIAL IVPUSH (01:39)
[2020-09-03] MEDS: diphenhydrAMINE HCL 50 MG/ML VIAL 25 MG IVPUSH (01:39)
[2020-09-03] MEDS: Ketorolac Tromethamine 15 MG/ML VIAL IM (01:39)
[2020-09-03 01:47] VITALS: BP 144/82; PULSE 104; RESP 18
[2020-09-03 01:50] VITALS: BP 144/82; PULSE 104; RESP 18
[2020-09-03 02:00] LABS: Alanine Aminotransferase 31 U/L (0-31); Albumin Level 4.6 g/dL (3.5-5.0); Alkaline Phosphatase 69 U/L (39-117); Anion Gap 12 (12-20); Aspartate Amino Transferase 21 U/L (5-31); Bilirubin Total 0.2 mg/dL (0.0-1.0); Blood Urea Nitrogen 18 mg/dL (9-16); Calcium 10.1 mg/dL (8.4-10.2); Carbon Dioxide 27 mmol/L (22-29); Chloride 104 mmol/L (96-108); Creatinine Clr Calc Pharmacy 65.1; Estimated Glomerular Filt Rate 54; Glucose Random 105 mg/dL (60-115); Sodium 139 mmol/L (135-145); Total Protein 7.4 g/dL (6.5-8.0)
[2020-09-03 02:40] VITALS: BP 143/77; PULSE 93; RESP 18
== END 2020-09-03 03:28 | disposition home or self-care (01) ==
PROVIDERS: Emergency Provider Student in an Organized Health Care Education/Training Program; PCP Family Medicine
DX: G44.209 Tension-type headache, unspecified, not intractable (principal); I10 Essential (primary) hypertension; E78.5 Hyperlipidemia, unspecified; Z86.16 Personal history of COVID-19
CPT/HCPCS: 36415; 80053; 85025; 96361; 96374; 96375; 99284; J1200; J1885; J2765

== ENCOUNTER 2020-09-07 14:14 | Outpatient (REF) | payer MEDICAID, SELFPAY ==
--- NOTE | ~2020-09-07 | US_ITS ---
EXAMINATION: US ABDOMEN LIMITED (SOFT TISSUE MASS) CLINICAL INFORMATION: Mass anterior right ribs. COMPARISON: Ultrasound abdomen 04/19/2019 and 04/09/2018. MR abdomen 11/10/2016. CT abdomen and pelvis 09/05/2016. TECHNIQUE: Real-time imaging of the right anterior/lateral ribs and flank area. FINDINGS: Imaging through the right anterolateral ribs and flank area reveals no visible mass, fluid collection or abnormality. Clinically palpable abnormality may be a little bump on the right femoral injury or osteophyte at the joint. Correlated with a chest x-ray or CT. US/US abdomen limited IMPRESSION: No ultrasound abnormality seen along the right anterolateral ribs where patient complains of palpable lesion.
== END 2020-09-07 14:15 | disposition home or self-care (01) ==
LOC: HO.US 14:14
PROVIDERS: Visit Provider Family Medicine
DX: R22.2 Localized swelling, mass and lump, trunk (principal)
CPT/HCPCS: 76705

== ENCOUNTER 2020-09-14 14:39 | Outpatient (REF) | payer MEDICAID, SELFPAY | END 2020-09-14 14:40 | disposition home or self-care (01) | LOC: HO.US 14:39 | PROVIDERS: Visit Provider Family Medicine | DX: Z13.89 Encounter for screening for other disorder (principal) ==

== ENCOUNTER 2020-10-04 21:39 | Emergency (ER) | payer MEDICAID, SELFPAY ==
--- NOTE | ~2020-10-04 | XR_ITS ---
EXAMINATION: XR CHEST CLINICAL INFORMATION: Dyspnea COMPARISON: 07/21/2019 TECHNIQUE: Frontal view of the chest was obtained. FINDINGS: No significant abnormality is noted involving the heart, lungs, mediastinum, bony thorax or soft tissues. XR/XR chest 1V IMPRESSION: Unremarkable examination.
[2020-10-04 22:01] VITALS: BP 151/86; PULSE 108; RESP 22; TEMP 37.5; O2SAT 98; BMI 41.0
--- NOTE | 2020-10-04 22:49 | ED.SOB ---
HPI - SOB/Dyspnea General Chief Complaint: Dyspnea Stated Complaint: Difficulty breathing Time Seen by Provider: 10/04/20 22:49 Source: patient Mode of arrival: ambulatory History of Present Illness HPI Narrative: This is a 49-year-old female with known asthma who presents with 2 days of increasing shortness of breath associated with increased phlegm production. Patient otherwise denies any fevers, chills, nausea, vomiting and endorses that she received her initial COVID-19 vaccine yesterday. Related Data Home Medications Medication Instructions Recorded Confirmed albuterol sulfate 90 mcg/actuation 1 inh INHALATION Q4-6H PRN 03/26/20 08/12/20 breath activated powder inhaler amlodipine 5 mg tablet 5 mg PO DAILY 03/26/20 08/12/20 aspirin 81 mg tablet,delayed 81 mg PO DAILY 03/26/20 08/12/20 release cholecalciferol (vitamin D3) 25 25 mcg PO DAILY 03/26/20 08/12/20 mcg (1,000 unit) capsule docusate sodium 100 mg capsule 100 mg PO DAILY PRN 03/26/20 08/12/20 fluticasone propionate 110 1 puff INHALATION BID 03/26/20 08/12/20 mcg/actuation HFA aerosol inhaler gabapentin 400 mg capsule 400 mg PO DAILY 03/26/20 08/12/20 lorazepam 2 mg tablet 2 mg PO BEDTIME PRN 03/26/20 08/12/20 methocarbamol 500 mg tablet 500 mg PO QID PRN 03/26/20 08/12/20 pantoprazole 40 mg tablet,delayed 40 mg PO DAILY 03/26/20 08/12/20 release zolpidem 10 mg tablet 5 mg PO BEDTIME PRN 03/26/20 08/12/20 tramadol 50 mg PO BID PRN 05/20/20 06/11/20 rosuvastatin 40 mg tablet 40 mg PO DAILY 08/27/20 Previous Rx's Medication Instructions Recorded fenofibrate 54 mg tablet 54 mg PO DAILY 30 Days #30 tab 03/27/20 apixaban [Eliquis] See Rx Instructions .ROUTE 05/15/20 .COMPLEX #80 tab hydrocodone-homatropine 5 ml PO Q6H PRN #60 ml 06/28/20 ezetimibe 10 mg tablet 10 mg PO DAILY 90 Days #90 tab 08/24/20 alirocumab 75 mg/mL subcutaneous 75 mg SUBCUT Q2W 90 Days #7 ml 08/27/20 pen injector amoxicillin 500 mg PO BID 10 Days #20 cap 08/27/20 prednisone 40 mg PO DAILY 4 Days #8 tab 10/05/20 Allergies Allergy/AdvReac Type Severity Reaction Status Date / Time loratadine [From CLARITIN] Allergy Mild CHILLS AND Verified 09/02/20 22:51 DIFF BREATHING Review of Systems Review of Systems: Pertinent positives and negatives as stated in HPI 10 point review of systems is otherwise negative. PMFSH Past Medical History Source: nursing notes reviewed Medical History Acid reflux Coronary artery disease Fatty liver Fibromyalgia Gall bladder polyp Hyperlipidemia Hypertension Obesity (BMI 30-39.9) Sleep apnea Surgical History History of cardiac cath Family History Family History Paternal Grandfather No problems noted. Father History of cancer Lung cancer Mother Heart disease Social History Social History Household Members: Significant Other and Children Housing: Apartment Alcohol intake: never Smoking Status: Never smoker Years Smoked: Prior smoker, no alcohol or drug use Second Hand Smoke Exposure: No Advance Directives: No Advance Directives Information Provided: No service: No Current occupational status: disabled Physical Exam Vital Signs: Vital Signs: Last Vital Signs Temp 99.5 F 10/04/20 22:01 Pulse 90 10/05/20 00:00 Resp 18 10/05/20 00:00 BP 138/72 10/05/20 00:00 Pulse Ox 98 10/05/20 00:00 Body Mass Index 41.0 VITAL SIGNS: Reviewed. GENERAL: Well developed, well nourished, in no acute distress. HEAD: Normocephalic/atraumatic EYES: PERRLA, EOMI NOSE: Nares patent bilateral OROPHARYNX: no oral lesions noted, posterior pharynx clear NECK: Supple, no adenopathy LUNGS: Trace wheezing noted bilaterally otherwise no adventitious sounds or accessory muscle use. SpO2<98> CARDIOVASCULAR: Regular rate and rhythm without noted murmurs, no JVD or lower extremity edema. ABDOMEN: Obese, Soft, non-tender, non-distended with bowel sounds. SKIN: Inspection of the skin reveals no rashes NEUROLOGIC: Alert and oriented x 4. Strength and sensation to light touch were grossly intact x 4. Course Course Course Narrative: This is a 49-year-old female with history and clinical presentation consistent with mild asthma exacerbation and low suspicion for pneumonia or cardiac etiology. Review of all investigations and on re-evaluation there are no acute findings in patient has had complete improvement with interventions albuterol and oral prednisone. She was discharged home in stable condition Discharge Plan Discharge Clinical Impression: Asthma with exacerbation Patient Disposition: Home, Self-Care Instructions: Asthma (ED), Allergies (ED) Additional Instructions: 1. Reanude todos los medicamentos caseros seg?n lo prescrito. 2. Saeid un seguimiento con penn proveedor de atenci?n primaria para jaylan reevaluaci?n en los pr?ximos 2-3 d?as. No dude en volver al servicio de urgencias si experimenta un empeoramiento nighat de varsha s?ntomas. Prescriptions: New prednisone 20 mg tablet 40 mg PO DAILY 4 Days Qty: 8 RF: 0 No Action fenofibrate 54 mg tablet 54 mg PO DAILY 30 Days Qty: 30 RF: 5 ezetimibe 10 mg tablet 10 mg PO DAILY 90 Days Qty: 90 RF: 3 rosuvastatin [Crestor] 40 mg tablet 40 mg PO DAILY RF: 0 Praluent Pen 75 mg/mL pen injector 75 mg subcut Q2W 90 Days Qty: 7 RF: 3 Eliquis 5 mg tablet See Rx Instructions .ROUTE .COMPLEX Qty: 80 RF: 0 tramadol 50 mg Tablet 50 mg PO BID PRN (Reason: Pain) RF: 0 hydrocodone-homatropine 5-1.5 mg/5 mL (5 mL) syrup 5 ml PO Q6H PRN (Reason: cough) Qty: 60 RF: 0 amoxicillin 500 mg capsule 500 mg PO BID 10 Days Qty: 20 RF: 0 albuterol sulfate 90 mcg/actuation aerosol powdr breath activated 1 inh inhalation Q4-6H PRN (Reason: Gastric Reflux) RF: 0 lorazepam [Ativan] 2 mg tablet 2 mg PO BEDTIME PRN (Reason: Anxiety) RF: 0 Flovent HFA 110 mcg/actuation HFA aerosol inhaler 1 puff inhalation BID RF: 0 zolpidem [Ambien] 10 mg tablet 5 mg PO BEDTIME PRN (Reason: Anxiety) RF: 0 aspirin [Adult Low Dose Aspirin] 81 mg tablet,delayed release (DR/EC) 81 mg PO DAILY RF: 0 cholecalciferol (vitamin D3) 25 mcg (1,000 unit) capsule 25 mcg PO DAILY RF: 0 methocarbamol 500 mg tablet 500 mg PO QID PRN (Reason: Muscle Spasm) RF: 0 gabapentin [Neurontin] 400 mg capsule 400 mg PO DAILY RF: 0 pantoprazole [Protonix] 40 mg tablet,delayed release (DR/EC) 40 mg PO DAILY RF: 0 docusate sodium [Colace] 100 mg capsule 100 mg PO DAILY PRN (Reason: Constipation) RF: 0 amlodipine [Norvasc] 5 mg tablet 5 mg PO DAILY RF: 0 Referrals: Ava Yap DO [Primary Care Provider] - 2 days Print Language: Japanese
--- NOTE | 2020-10-04 23:42 | PC.NURSE ---
Respiratory therapist (James) contacted to administer Ventolin. To be medicated with PO Prednisone. Lungs clear to auscultation, vital signs stable. Will continue to monitor.
[2020-10-04] MEDS: predniSONE 10 MG TABLET 50 MG PO (23:46)
[2020-10-04] MEDS: Albuterol Sulfate 90 MCG 8 GM INHALER 4 PUFF INHALE (23:51)
[2020-10-04 23:52] VITALS: PULSE 89; O2SAT 99
[2020-10-05] VITALS: BP 138/72; PULSE 90; RESP 18; O2SAT 98
== END 2020-10-05 01:07 | disposition home or self-care (01) ==
PROVIDERS: Emergency Provider Student in an Organized Health Care Education/Training Program; PCP Family Medicine
DX: J45.901 Unspecified asthma with (acute) exacerbation (principal); I10 Essential (primary) hypertension; E78.5 Hyperlipidemia, unspecified; Z86.16 Personal history of COVID-19; Z79.899 Other long term (current) drug therapy; Z79.82 Long term (current) use of aspirin
CPT/HCPCS: 71045; 94640; 99284

== ENCOUNTER 2020-10-07 12:39 | Emergency (ER) | payer MEDICAID, SELFPAY ==
[2020-10-07 13:51] VITALS: BP 165/77; PULSE 94; RESP 20; TEMP 36.8; O2SAT 97; BMI 41.0
--- NOTE | 2020-10-07 13:55 | ED.GENADULT ---
HPI - General Adult General Chief complaint: General Medical <Raleigh Fuentes NP - Last Filed: 10/07/20 21:27> Stated complaint: PAIN ALL OVER HEADACHE QUEST REAC TO VACCINE <Raleigh Fuentes NP - Last Filed: 10/07/20 21:27> Time Seen by Provider: 10/07/20 13:55 <Raleigh Fuentes NP - Last Filed: 10/07/20 21:27> Source: patient <Raleigh Fuentes NP - Last Filed: 10/07/20 21:27> Mode of arrival: ambulatory <Raleigh Fuentes NP - Last Filed: 10/07/20 21:27> Limitations: no limitations <Raleigh Fuentes NP - Last Filed: 10/07/20 21:27> History of Present Illness HPI narrative: 41-year-old female seen and evaluated in triage room and triage the main emergency room She presents with constellation of symptoms including calf pain, abdominal bloating over the past 2 days she received her [place] [employer] COVID vaccination four days ago on 10/04/2019. She denies any head or neck pain, no chest pain, no shortness of breath. She does report history of prior PE was anticoagulated and no longer. States he saw the news regarding the recall and also reported symptoms to her doctor and was advised to come to the emergency room. <Raleigh Fuentes NP - Last Filed: 10/07/20 21:27> Onset (ago): day(s) <Raleigh Fuentes NP - Last Filed: 10/07/20 21:27> Severity: mild <Raleigh Fuentes NP - Last Filed: 10/07/20 21:27> Pain Consistency: constant <Raleigh Fuentes NP - Last Filed: 10/07/20 21:27> Relieving factors: none <Raleigh Fuentes NP - Last Filed: 10/07/20 21:27> Exacerbating factors: none <Raleigh Fuentes NP - Last Filed: 10/07/20 21:27> Related Data Home medications: Home Medications Medication Instructions Recorded Confirmed albuterol sulfate 90 mcg/actuation 1 inh INHALATION Q4-6H PRN 03/26/20 08/12/20 breath activated powder inhaler amlodipine 5 mg tablet 5 mg PO DAILY 03/26/20 08/12/20 aspirin 81 mg tablet,delayed 81 mg PO DAILY 03/26/20 08/12/20 release cholecalciferol (vitamin D3) 25 25 mcg PO DAILY 03/26/20 08/12/20 mcg (1,000 unit) capsule docusate sodium 100 mg capsule 100 mg PO DAILY PRN 03/26/20 08/12/20 fluticasone propionate 110 1 puff INHALATION BID 03/26/20 08/12/20 mcg/actuation HFA aerosol inhaler gabapentin 400 mg capsule 400 mg PO DAILY 03/26/20 08/12/20 lorazepam 2 mg tablet 2 mg PO BEDTIME PRN 03/26/20 08/12/20 methocarbamol 500 mg tablet 500 mg PO QID PRN 03/26/20 08/12/20 pantoprazole 40 mg tablet,delayed 40 mg PO DAILY 03/26/20 08/12/20 release zolpidem 10 mg tablet 5 mg PO BEDTIME PRN 03/26/20 08/12/20 tramadol 50 mg PO BID PRN 05/20/20 06/11/20 rosuvastatin 40 mg tablet 40 mg PO DAILY 08/27/20 Previous Rx's Medication Instructions Recorded fenofibrate 54 mg tablet 54 mg PO DAILY 30 Days #30 tab 03/27/20 apixaban [Eliquis] See Rx Instructions .ROUTE 05/15/20 .COMPLEX #80 tab hydrocodone-homatropine 5 ml PO Q6H PRN #60 ml 06/28/20 ezetimibe 10 mg tablet 10 mg PO DAILY 90 Days #90 tab 08/24/20 alirocumab 75 mg/mL subcutaneous 75 mg SUBCUT Q2W 90 Days #7 ml 08/27/20 pen injector amoxicillin 500 mg PO BID 10 Days #20 cap 08/27/20 prednisone 40 mg PO DAILY 4 Days #8 tab 10/05/20 <Raleigh Fuentes NP - Last Filed: 10/07/20 21:27> Allergies/adverse reactions: Allergies Allergy/AdvReac Type Severity Reaction Status Date / Time loratadine [From CLARITIN] Allergy Mild CHILLS AND Verified 10/14/20 11:45 DIFF BREATHING <Raleigh Fuentes NP - Last Filed: 10/07/20 21:27> [facility] Past Medical History Medical History: Medical History Acid reflux Coronary artery disease Fatty liver Fibromyalgia Gall bladder polyp Hyperlipidemia Hypertension Obesity (BMI 30-39.9) Sleep apnea <Raleigh Fuentes NP - Last Filed: 10/07/20 21:27> Surgical History: Surgical History History of cardiac cath History of endometrial ablation Hx of tubal ligation <Raleigh Fuentes NP - Last Filed: 10/07/20 21:27> Family History Family History: Family History Paternal Grandfather No problems noted. Father History of cancer Lung cancer Mother Heart disease <Raleigh Fuentes NP - Last Filed: 10/07/20 21:27> Social History Social History: Social History Household Members: Significant Other and Children Housing: Apartment Alcohol intake: never Smoking Status: Never smoker Years Smoked: Prior smoker, no alcohol or drug use Second Hand Smoke Exposure: No service: No Current occupational status: disabled <Raleigh Fuentes NP - Last Filed: 10/07/20 21:27> Physical Exam Vital Signs: Vital Signs: Last Vital Signs Temp 98.2 F 10/07/20 13:51 Pulse 94 10/07/20 13:51 Resp 20 10/07/20 13:51 BP 165/77 H 10/07/20 13:51 Pulse Ox 97 10/07/20 13:51 Body Mass Index 41.0 <Raleigh Fuentes NP - Last Filed: 10/07/20 21:27> Vital Signs: Last Vital Signs Temp 98.2 F 10/07/20 13:51 Pulse 94 10/07/20 13:51 Resp 20 10/07/20 13:51 BP 165/77 H 10/07/20 13:51 Pulse Ox 97 10/07/20 13:51 Body Mass Index 41.0 <Catarino Garland MD - Last Filed: 10/17/20 07:14> Course Course Course Narrative: I have reviewed the chart <Catarino Garland MD - Last Filed: 10/17/20 07:14> Reevaluation(s) Reevaluation #1: 1400 Well nontoxic appearing, appears more anxious. Vital stable. In no acute distress. Labs including D-dimer ordered there has been a recent recall on the [employer] vaccination due to concern for cerebral venous sinus thrombosis. No complaints of chest pain, neck pain, headache. Patient triaged to main emergency room. <Raleigh Fuentes NP - Last Filed: 10/07/20 21:27> Reevaluation #2: Patient eloped prior to being evaluated in the ED <Raleigh Fuentes NP - Last Filed: 10/07/20 21:27> Medical Decision Making Lab Data Result diagrams: : 10/07/20 14:13 10/07/20 14:13 <Raleigh Fuentes NP - Last Filed: 10/07/20 21:27> Labs: Lab Results 10/07/20 10/07/20 10/07/20 Range/Units 14:11 14:11 14:12 WBC (4.8-10.8) X10*3/uL RBC (4.20-5.50) X10*6/uL Hgb (12.0-16.0) g/dl Hct (37-47) % MCV (80-98) fL MCH (27.0-33.0) pg MCHC (31.0-35.0) g/dl RDW (11.0-16.0) % Plt Count (160-400) X10*3/uL MPV (9.4-12.3) fL Immature Gran % (Auto) (0.0-0.4) % Neut % (Auto) (45-73) % Lymph % (Auto) (20-40) % [place] % (Auto) (2-11) % Eos % (Auto) (0-4) % Baso % (Auto) (0-2) % Lymph # (Auto) (1.2-4.9) X10*3/uL [place] # (Auto) (0.1-1.2) X10*3/uL Eos # (Auto) (0.0-0.4) X10*3/uL Baso # (Auto) (0.0-0.2) X10*3/uL Abs Immat Gran (auto) (0.00-0.03) X10*3/uL Absolute Neuts (auto) (2.0-8.3) X10*3/uL Absolute Nucleated RBC (0.0-0.012) X10*3/uL Nucleated RBC % (auto) (0.0-0.2) /100WBC PT (10.8-13.0) SEC INR (0.9-1.1) APTT (24.1-38.0) SEC D-Dimer NG/ML Sodium (135-145) mmol/L Potassium (3.3-5.1) mmol/L Chloride (96-108) mmol/L Carbon Dioxide (22-29) mmol/L Anion Gap (12-20) BUN (9-16) mg/dL Creatinine (0.5-1.4) mg/dL Estim Creat Clear Calc Estimated GFR Random Glucose (60-115) mg/dL Calcium (8.4-10.2) mg/dL Total Bilirubin (0.0-1.0) mg/dL AST (5-31) U/L ALT (0-31) U/L Alkaline Phosphatase (39-117) U/L Total Protein (6.5-8.0) g/dL Albumin (3.5-5.0) g/dL Urine Color COLORLESS Urine Appearance CLEAR Urine pH 5.5 (5.0-8.0) Ur Specific [place] <= 1.005 (1.005-1.025) Urine Protein NEG (NEG-TRACE) MG/DL Urine Glucose (UA) NEG (NEG) MG/DL Urine Ketones NEG (NEG) MG/DL Urine Blood NEG (NEG) Urine Nitrite NEG (NEG) Ur Leukocyte Esterase NEG (NEG) Urine RBC 0 (0) /HPF Urine WBC 0 (0-4) /HPF Ur Squamous Epith Cells TRACE /LPF Urine Bacteria NONE /LPF Urine Test NEGATIVE (NEGATIVE) Coronavirus (PCR) NEGATIVE (Negative) Influenza Type A (PCR) NEGATIVE (Negative) Influenza Type B (PCR) NEGATIVE (Negative) RSV RNA Qual (PCR) NEGATIVE (Negative) 10/07/20 10/07/20 10/07/20 Range/Units 14:13 14:13 14:13 WBC 5.6 (4.8-10.8) X10*3/uL RBC 4.42 (4.20-5.50) X10*6/uL Hgb 13.4 (12.0-16.0) g/dl Hct 40.9 (37-47) % MCV 92.5 (80-98) fL MCH 30.3 (27.0-33.0) pg MCHC 32.8 (31.0-35.0) g/dl RDW 13.2 (11.0-16.0) % Plt Count 263 (160-400) X10*3/uL MPV 10.7 (9.4-12.3) fL Immature Gran % (Auto) 0.2 (0.0-0.4) % Neut % (Auto) 45.7 (45-73) % Lymph % (Auto) 44.2 H (20-40) % [place] % (Auto) 9.0 (2-11) % Eos % (Auto) 0.5 (0-4) % Baso % (Auto) 0.4 (0-2) % Lymph # (Auto) 2.5 (1.2-4.9) X10*3/uL [place] # (Auto) 0.5 (0.1-1.2) X10*3/uL Eos # (Auto) 0.0 (0.0-0.4) X10*3/uL Baso # (Auto) 0.0 (0.0-0.2) X10*3/uL Abs Immat Gran (auto) 0.01 (0.00-0.03) X10*3/uL Absolute Neuts (auto) 2.5 (2.0-8.3) X10*3/uL Absolute Nucleated RBC 0.000 (0.0-0.012) X10*3/uL Nucleated RBC % (auto) 0.0 (0.0-0.2) /100WBC PT 11.9 (10.8-13.0) SEC INR 1.0 (0.9-1.1) APTT 35.6 (24.1-38.0) SEC D-Dimer < 200 NG/ML Sodium 138 (135-145) mmol/L Potassium 4.3 (3.3-5.1) mmol/L Chloride 108 (96-108) mmol/L Carbon Dioxide 21 L (22-29) mmol/L Anion Gap 13 (12-20) BUN 11 (9-16) mg/dL Creatinine 0.81 (0.5-1.4) mg/dL Estim Creat Clear Calc 87.6 Estimated GFR > 60 Random Glucose 97 (60-115) mg/dL Calcium 10.4 H (8.4-10.2) mg/dL Total Bilirubin 0.4 (0.0-1.0) mg/dL AST 33 H D (5-31) U/L ALT 48 H (0-31) U/L Alkaline Phosphatase 76 (39-117) U/L Total Protein 7.7 (6.5-8.0) g/dL Albumin 4.7 (3.5-5.0) g/dL Urine Color Urine Appearance Urine pH (5.0-8.0) Ur Specific [place] (1.005-1.025) Urine Protein (NEG-TRACE) MG/DL Urine Glucose (UA) (NEG) MG/DL Urine Ketones (NEG) MG/DL Urine Blood (NEG) Urine Nitrite (NEG) Ur Leukocyte Esterase (NEG) Urine RBC (0) /HPF Urine WBC (0-4) /HPF Ur Squamous Epith Cells /LPF Urine Bacteria /LPF Urine Test (NEGATIVE) Coronavirus (PCR) (Negative) Influenza Type A (PCR) (Negative) Influenza Type B (PCR) (Negative) RSV RNA Qual (PCR) (Negative) <Raleigh Fuentes NP - Last Filed: 10/07/20 21:27> Lab Results 10/07/20 10/07/20 10/07/20 Range/Units 14:11 14:11 14:12 WBC (4.8-10.8) X10*3/uL RBC (4.20-5.50) X10*6/uL Hgb (12.0-16.0) g/dl Hct (37-47) % MCV (80-98) fL MCH (27.0-33.0) pg MCHC (31.0-35.0) g/dl RDW (11.0-16.0) % Plt Count (160-400) X10*3/uL MPV (9.4-12.3) fL Immature Gran % (Auto) (0.0-0.4) % Neut % (Auto) (45-73) % Lymph % (Auto) (20-40) % [place] % (Auto) (2-11) % Eos % (Auto) (0-4) % Baso % (Auto) (0-2) % Lymph # (Auto) (1.2-4.9) X10*3/uL [place] # (Auto) (0.1-1.2) X10*3/uL Eos # (Auto) (0.0-0.4) X10*3/uL Baso # (Auto) (0.0-0.2) X10*3/uL Abs Immat Gran (auto) (0.00-0.03) X10*3/uL Absolute Neuts (auto) (2.0-8.3) X10*3/uL Absolute Nucleated RBC (0.0-0.012) X10*3/uL Nucleated RBC % (auto) (0.0-0.2) /100WBC PT (10.8-13.0) SEC INR (0.9-1.1) APTT (24.1-38.0) SEC D-Dimer NG/ML Sodium (135-145) mmol/L Potassium (3.3-5.1) mmol/L Chloride (96-108) mmol/L Carbon Dioxide (22-29) mmol/L Anion Gap (12-20) BUN (9-16) mg/dL Creatinine (0.5-1.4) mg/dL Estim Creat Clear Calc Estimated GFR Random Glucose (60-115) mg/dL Calcium (8.4-10.2) mg/dL Total Bilirubin (0.0-1.0) mg/dL AST (5-31) U/L ALT (0-31) U/L Alkaline Phosphatase (39-117) U/L Total Protein (6.5-8.0) g/dL Albumin (3.5-5.0) g/dL Urine Color COLORLESS Urine Appearance CLEAR Urine pH 5.5 (5.0-8.0) Ur Specific [place] <= 1.005 (1.005-1.025) Urine Protein NEG (NEG-TRACE) MG/DL Urine Glucose (UA) NEG (NEG) MG/DL Urine Ketones NEG (NEG) MG/DL Urine Blood NEG (NEG) Urine Nitrite NEG (NEG) Ur Leukocyte Esterase NEG (NEG) Urine RBC 0 (0) /HPF Urine WBC 0 (0-4) /HPF Ur Squamous Epith Cells TRACE /LPF Urine Bacteria NONE /LPF Urine Test NEGATIVE (NEGATIVE) Coronavirus (PCR) NEGATIVE (Negative) Influenza Type A (PCR) NEGATIVE (Negative) Influenza Type B (PCR) NEGATIVE (Negative) RSV RNA Qual (PCR) NEGATIVE (Negative) 10/07/20 10/07/20 10/07/20 Range/Units 14:13 14:13 14:13 WBC 5.6 (4.8-10.8) X10*3/uL RBC 4.42 (4.20-5.50) X10*6/uL Hgb 13.4 (12.0-16.0) g/dl Hct 40.9 (37-47) % MCV 92.5 (80-98) fL MCH 30.3 (27.0-33.0) pg MCHC 32.8 (31.0-35.0) g/dl RDW 13.2 (11.0-16.0) % Plt Count 263 (160-400) X10*3/uL MPV 10.7 (9.4-12.3) fL Immature Gran % (Auto) 0.2 (0.0-0.4) % Neut % (Auto) 45.7 (45-73) % Lymph % (Auto) 44.2 H (20-40) % [place] % (Auto) 9.0 (2-11) % Eos % (Auto) 0.5 (0-4) % Baso % (Auto) 0.4 (0-2) % Lymph # (Auto) 2.5 (1.2-4.9) X10*3/uL [place] # (Auto) 0.5 (0.1-1.2) X10*3/uL Eos # (Auto) 0.0 (0.0-0.4) X10*3/uL Baso # (Auto) 0.0 (0.0-0.2) X10*3/uL Abs Immat Gran (auto) 0.01 (0.00-0.03) X10*3/uL Absolute Neuts (auto) 2.5 (2.0-8.3) X10*3/uL Absolute Nucleated RBC 0.000 (0.0-0.012) X10*3/uL Nucleated RBC % (auto) 0.0 (0.0-0.2) /100WBC PT 11.9 (10.8-13.0) SEC INR 1.0 (0.9-1.1) APTT 35.6 (24.1-38.0) SEC D-Dimer < 200 NG/ML Sodium 138 (135-145) mmol/L Potassium 4.3 (3.3-5.1) mmol/L Chloride 108 (96-108) mmol/L Carbon Dioxide 21 L (22-29) mmol/L Anion Gap 13 (12-20) BUN 11 (9-16) mg/dL Creatinine 0.81 (0.5-1.4) mg/dL Estim Creat Clear Calc 87.6 Estimated GFR > 60 Random Glucose 97 (60-115) mg/dL Calcium 10.4 H (8.4-10.2) mg/dL Total Bilirubin 0.4 (0.0-1.0) mg/dL AST 33 H D (5-31) U/L ALT 48 H (0-31) U/L Alkaline Phosphatase 76 (39-117) U/L Total Protein 7.7 (6.5-8.0) g/dL Albumin 4.7 (3.5-5.0) g/dL Urine Color Urine Appearance Urine pH (5.0-8.0) Ur Specific [place] (1.005-1.025) Urine Protein (NEG-TRACE) MG/DL Urine Glucose (UA) (NEG) MG/DL Urine Ketones (NEG) MG/DL Urine Blood (NEG) Urine Nitrite (NEG) Ur Leukocyte Esterase (NEG) Urine RBC (0) /HPF Urine WBC (0-4) /HPF Ur Squamous Epith Cells /LPF Urine Bacteria /LPF Urine Test (NEGATIVE) Coronavirus (PCR) (Negative) Influenza Type A (PCR) (Negative) Influenza Type B (PCR) (Negative) RSV RNA Qual (PCR) (Negative) <Catarino Garland MD - Last Filed: 10/17/20 07:14> Discharge Plan Discharge Patient Disposition: Left Without Being Seen <Raleigh Fuentes NP - Last Filed: 10/07/20 21:27> Interventions: LWBS Worksheet Last Done: 10/07/20 17:26 <Raleigh Fuentes NP - Last Filed: 10/07/20 21:27> Discharge Date/Time: 10/07/20 17:26 <Raleigh Fuentes NP - Last Filed: 10/07/20 21:27>
[2020-10-07 14:20] LABS: MANUAL DIFF FLAG NO
[2020-10-07 14:22] LABS: Basophils Percent Auto 0.4 % (0-2); Eosinophils Percent Auto 0.5 % (0-4); Hematocrit 40.9 % (37-47); Hemoglobin 13.4 g/dl (12.0-16.0); Imm Gran Abs Auto 0.01 X10*3/uL (0.00-0.03); Imm Gran Pct Auto 0.2 % (0.0-0.4); Lymphocytes Absolute Auto 2.5 X10*3/uL (1.2-4.9); Lymphocytes Percent Auto 44.2 % (20-40); Mean Corpuscular HGB Conc 32.8 g/dl (31.0-35.0); Mean Corpuscular Hemoglobin 30.3 pg (27.0-33.0); Mean Corpuscular Volume 92.5 fL (80-98); Mean Platelet Volume 10.7 fL (9.4-12.3); Monocytes Absolute Auto 0.5 X10*3/uL (0.1-1.2); Neutrophils Absolute Auto 2.5 X10*3/uL (2.0-8.3); Neutrophils Percent Auto 45.7 % (45-73); Platelet Count 263 X10*3/uL (160-400); Red Blood Count 4.42 X10*6/uL (4.20-5.50); Red Cell Distribution Width 13.2 % (11.0-16.0); White Blood Count 5.6 X10*3/uL (4.8-10.8)
[2020-10-07 14:35] LABS: UPreg QC Valid YES; Urine Pregnancy NEGATIVE (NEGATIVE)
[2020-10-07 14:38] LABS: Prothrombin Time 11.9 SEC (10.8-13.0)
[2020-10-07 14:39] LABS: Appearance Urine CLEAR; Color Urine COLORLESS; Glucose Urine UA NEG (NEG); Leukocyte Esterase Urine NEG (NEG); Nitrite Urine NEG (NEG); PH 5.5 (5.0-8.0); Specific Gravity - Urine <= 1.005 (1.005-1.025); Urine Blood NEG (NEG); Urine Ketones NEG (NEG); Urine Protein NEG (NEG-TRACE)
[2020-10-07 14:41] LABS: Partial Thromboplastin Time 35.6 SEC (24.1-38.0)
[2020-10-07 14:43] LABS: D Dimer < 200 NG/ML
[2020-10-07 14:46] LABS: RBC Urine 0 /HPF (0); Squamous Epithelial Cell Urine TRACE /LPF; WBC Urine 0 /HPF (0-4)
[2020-10-07 14:57] LABS: Alanine Aminotransferase 48 U/L (0-31); Albumin Level 4.7 g/dL (3.5-5.0); Alkaline Phosphatase 76 U/L (39-117); Anion Gap 13 (12-20); Aspartate Amino Transferase 33 U/L (5-31); Bilirubin Total 0.4 mg/dL (0.0-1.0); Blood Urea Nitrogen 11 mg/dL (9-16); Calcium 10.4 mg/dL (8.4-10.2); Carbon Dioxide 21 mmol/L (22-29); Chloride 108 mmol/L (96-108); Creatinine Clr Calc Pharmacy 87.6; Estimated Glomerular Filt Rate > 60; Glucose Random 97 mg/dL (60-115); Potassium 4.3 mmol/L (3.3-5.1); Sodium 138 mmol/L (135-145); Total Protein 7.7 g/dL (6.5-8.0)
[2020-10-07 14:58] LABS: Influenza A PCR NEGATIVE (Negative); Influenza B PCR NEGATIVE (Negative); Resp Syncy Virus RNA Qual PCR NEGATIVE (Negative); SARS COV2 PCR INHOUSE NEGATIVE (Negative)
== END 2020-10-07 17:26 | disposition left against medical advice (07) ==
PROVIDERS: Nurse Practitioner Primary Care; Emergency Provider Emergency Medicine; PCP Family Medicine
DX: R51.9 Headache, unspecified (principal); M79.10 Myalgia, unspecified site; M79.662 Pain in left lower leg; M79.661 Pain in right lower leg; T50.B95A Adverse effect of other viral vaccines, initial encounter; Y92.019 Unspecified place in single-family (private) house as the place of occurrence of the external cause; Z20.822 Contact with and (suspected) exposure to COVID-19; I10 Essential (primary) hypertension; Z79.82 Long term (current) use of aspirin
CPT/HCPCS: 0241U; 36415; 80053; 81001; 81025; 85025; 85379; 85610; 85730; 99283

== ENCOUNTER 2020-10-08 14:29 | Emergency (ER) | payer MEDICAID, SELFPAY ==
--- NOTE | ~2020-10-08 | US_ITS ---
EXAMINATION: PELVIC ULTRASOUND, LIMITED TO RIGHT ADNEXA CLINICAL INFORMATION: Right adnexal mass and fullness in the posterior fundus of the uterus COMPARISON: CT abdomen pelvis earlier today TECHNIQUE: Both transabdominal and endovaginal scanning was performed. The examination was limited to evaluate the right adnexa only per Dr. Sims. The uterus was not intentionally imaged FINDINGS: An anteverted uterus is present but was not measured and not imaged. The large posterior fundal folds in the uterus was not assessed on the current study. The right ovary is visualized measuring 3.9 x 2.9 x 2.9 cm. Adjacent to the right ovary is a cyst measuring 5.9 x 5.4 x 6.9 cm. This cyst contains a single thin septation. No solid vascular components are seen. US/US transvaginal IMPRESSION: Large cyst in the right adnexa adjacent to the right ovary as described above. A single thin septation is noted with no solid components seen. The uterus was not evaluated.
--- NOTE | ~2020-10-08 | CT_ITS ---
EXAMINATION: CT ABDOMEN AND PELVIS WITHOUT CONTRAST CLINICAL INFORMATION: l flank pain etiology?? . COMPARISON: 09/05/2016. TECHNIQUE: Multidetector volumetric imaging was performed from the superior aspect of the liver through the pubic symphysis without contrast per renal stone protocol. Sagittal and coronal reformatted images were obtained on the technologist workstation. This CT examination was performed using dose optimization techniques as appropriate, variously including the following: *Automated exposure control *Adjustment of mA and/or kV according to patient size (this includes techniques or standardized protocols for targeted exams where dose is matched to indication/reason for exam; i.e. extremities or head) *Use of iterative reconstruction technique DLP: 759 mGy-cm. FINDINGS: LUNG BASES: Calcified granulomas at the lung bases. LIVER, GALLBLADDER, BILIARY TREE: Mild diffuse fatty infiltration of the liver with focal fatty sparing near the gallbladder fossa. No definitive focal hepatic lesions or biliary ductal dilatation. The gallbladder is unremarkable with no evidence of radiopaque gallstones, gallbladder wall thickening, or obvious pericholecystic inflammatory changes. PANCREAS: Focal fatty replacement of the pancreatic neck region is similar to the 2017 study and of no acute significance. No suspicious pancreatic lesion or pancreatic ductal dilatation SPLEEN: Unremarkable. ADRENAL GLANDS: Unremarkable. KIDNEYS AND URETERS: Chronic focal scarring in the lateral midpole of the left kidney similar to the prior study. Otherwise the kidneys are normal in size, shape, and attenuation. No hydronephrosis, hydroureter, or calculi seen. No perinephric stranding. BLADDER: Unremarkable. GASTROINTESTINAL TRACT: Colon is mostly decompressed with a few scattered colonic diverticula. No colonic wall thickening or pericolonic inflammatory changes to suggest diverticulitis. The appendix is not seen and presumably surgically absent. ABDOMINAL WALL: No significant hernia is appreciated. LYMPHOVASCULAR STRUCTURES: Normal vascular calcification within the aorta iliac system. No bulky adenopathy. PELVIC VISCERA: There is a 7.9 cm cystic lesion in the right adnexa, new from the prior study. This difficult to define further on this noncontrast study. Targeted pelvic ultrasound or pelvic MRI would be recommended. The anteroverted uterus demonstrates an large posterior fundal region of the internal heterogeneity. This could represent an intramural fibroid measuring up to 6.4 cm in size. This appears slightly more prominent than the 2017 study. Again this is difficult to define further on this noncontrast examination. Correlation with pelvic ultrasound is recommended. OSSEUS STRUCTURES: Unremarkable. CT/CT abdomen pelvis wo con IMPRESSION: 7.9 cm cystic lesion in the right adnexa new from the 2017 study. Further evaluation with dedicated pelvic ultrasound is recommended. There is fullness to the posterior fundal portion of the uterus possibly due to a fundal fibroid however this is more prominent than on the 2017 study as well and further evaluation with a dedicated pelvic ultrasound recommended. Chronic appearing changes otherwise.
--- NOTE | ~2020-10-08 | US_ITS ---
EXAMINATION: PELVIC ULTRASOUND, LIMITED TO RIGHT ADNEXA CLINICAL INFORMATION: Right adnexal mass and fullness in the posterior fundus of the uterus COMPARISON: CT abdomen pelvis earlier today TECHNIQUE: Both transabdominal and endovaginal scanning was performed. The examination was limited to evaluate the right adnexa only per Dr. Sims. The uterus was not intentionally imaged FINDINGS: An anteverted uterus is present but was not measured and not imaged. The large posterior fundal folds in the uterus was not assessed on the current study. The right ovary is visualized measuring 3.9 x 2.9 x 2.9 cm. Adjacent to the right ovary is a cyst measuring 5.9 x 5.4 x 6.9 cm. This cyst contains a single thin septation. No solid vascular components are seen. US/US pelvic limited IMPRESSION: Large cyst in the right adnexa adjacent to the right ovary as described above. A single thin septation is noted with no solid components seen. The uterus was not evaluated.
[2020-10-08 15:05] VITALS: BP 143/100; PULSE 124; RESP 18; TEMP 37.2; O2SAT 98; BMI 41.0
[2020-10-08 15:57] VITALS: BP 148/92; PULSE 87; RESP 16; TEMP 36.9; O2SAT 96
--- NOTE | 2020-10-08 16:12 | PC.NURSE ---
PT REPORTS ABDOMINAL PAIN THAT RADIATES TO HER LOWER BACK. ABD SOFT, NON-TENDER. BS ACTIVE X4. LS CTA. PT ALSO REPORTS PAIN BEHIND LEFT KNEE THAT RADIATES TO HER ANKLE. NO SWELLING/WARMTH NOTED. PT HAD NILSA AND NILSA VACCINE ON 10/03.
--- NOTE | 2020-10-08 16:47 | ED.ABDPAIN ---
HPI - Abdominal Pain General Chief Complaint: Abdominal Pain Stated Complaint: abd pain Time Seen by Provider: 10/08/20 16:47 Source: patient Mode of arrival: ambulatory Limitations: no limitations History of Present Illness HPI narrative: Patient complaining of pain in the lower abdomen for last 2 days with left flank pain also complaining of pain in the legs feel that this could be because of [employer] vaccine 5 days ago no nausea no vomiting no diarrhea no blood in stool no fever or chills no urinary complaints Related Data Home Medications Medication Instructions Recorded Confirmed albuterol sulfate 90 mcg/actuation 1 inh INHALATION Q4-6H PRN 03/26/20 11/03/20 breath activated powder inhaler amlodipine 5 mg tablet 5 mg PO DAILY 03/26/20 11/03/20 aspirin 81 mg tablet,delayed 81 mg PO DAILY 03/26/20 11/03/20 release cholecalciferol (vitamin D3) 25 25 mcg PO DAILY 03/26/20 11/03/20 mcg (1,000 unit) capsule docusate sodium 100 mg capsule 100 mg PO DAILY PRN 03/26/20 11/03/20 fluticasone propionate 110 1 puff INHALATION BID 03/26/20 11/03/20 mcg/actuation HFA aerosol inhaler gabapentin 400 mg capsule 400 mg PO DAILY 03/26/20 11/03/20 lorazepam 2 mg tablet 2 mg PO BEDTIME PRN 03/26/20 11/03/20 methocarbamol 500 mg tablet 500 mg PO QID PRN 03/26/20 11/03/20 pantoprazole 40 mg tablet,delayed 40 mg PO DAILY 03/26/20 11/03/20 release zolpidem 10 mg tablet 5 mg PO BEDTIME PRN 03/26/20 11/03/20 tramadol 50 mg PO BID PRN 05/20/20 11/03/20 rosuvastatin 40 mg tablet 40 mg PO DAILY 08/27/20 11/03/20 Previous Rx's Medication Instructions Recorded apixaban [Eliquis] See Rx Instructions .ROUTE 05/15/20 .COMPLEX #80 tab hydrocodone-homatropine 5 ml PO Q6H PRN #60 ml 06/28/20 ezetimibe 10 mg tablet 10 mg PO DAILY 90 Days #90 tab 08/24/20 prednisone 40 mg PO DAILY 4 Days #8 tab 10/05/20 evolocumab 140 mg/mL subcutaneous 140 mg SUBCUT Q2W 90 Days #7 ml 11/04/20 pen injector sumatriptan succinate 50 mg PO Q2-4H PRN #10 tab 11/05/20 fenofibrate 54 mg tablet 54 mg PO DAILY 90 Days #90 tab 11/09/20 Allergies Allergy/AdvReac Type Severity Reaction Status Date / Time loratadine [From CLARITIN] Allergy Mild CHILLS AND Verified 12/04/20 14:37 DIFF BREATHING Review of Systems Review of Systems Constitutional : No Weight loss, No Fever, No Chills ENT/Mouth : No sore throat, No Rhinorrhea Eyes: No Eye Pain, No Swelling Cardiovascular : No Chest Pain, no palpitations Respiratory : No Cough, No Sputum, no shortness of breath Gastrointestinal : no Nausea, No Vomiting, No Diarrhea, + abdominal Pain, no black stools Genitourinary : No Dysuria, No Urinary Frequency Musculoskeletal : No joint pain, No Myalgias, No Joint Swelling Skin : No Skin Lesions, No rash Neuro : No Weakness, No Numbness, No Dizziness, No Headache Psych : No Anxiety/Panic, No Depression Heme/Lymph: No Bruising, No Lymphadenopathy Endocrine : No Polyuria, No Polydipsia All other systems reviewed and are negative Physical Exam Vital Signs: Vital Signs: Last Vital Signs Temp 98.5 F 10/08/20 15:57 Pulse 78 10/08/20 21:03 Resp 16 10/08/20 21:03 BP 142/80 H 10/08/20 21:03 Pulse Ox 98 10/08/20 18:37 Body Mass Index 41.0 Appearance: Alert. Oriented X3. No acute distress. Eyes: PERRLA, No Nystagmus ENT: Pharynx normal. Oral Mucosa moist Neck: Normal inspection. Neck supple. CVS: Normal heart rate and rhythm. Pulses normal. Respiratory: No respiratory distress. Equal air entry bilateral, no wheezing/rales/rhonchi Abdomen: Soft , deep tenderness left lower quadrant and suprapubic area no rebound tenderness or guarding, Bowel sounds are present, no mass palpable, mild L CVA tenderness Skin: Skin warm and dry. Normal skin color. Normal skin turgor. Extremities: No lower extremity edema. No calf tenderness Neuro: Oriented X 3. No motor deficit. No sensory deficit.No cerebellar signs , cranial nerves II-XII intact MDM - Abdominal Pain MDM Narrative Medical decision making narrative: Patient with large adnexal cyst about 6 cm without any signs of torsion. The patient advised to follow-up with tonnage compilation clerk Imaging Data US - abdomen: Attestation: I personally reviewed and interpreted this imaging study as follows: Radiologist's impression: [address] [id number] ReportSigned Patient: Heath XiongR#: [id number]: 1970Acct:[id number]/Sex: 49 / FADM Date: 10/08/20Loc: [email or web address] Dr: Ordering Physician: Neil Sims MD Date of Service: 10/08/20 Procedure(s): US transvaginal Accession Number(s): [id number] cc: Neil Sims MD~ EXAMINATION: PELVIC ULTRASOUND, LIMITED TO RIGHT ADNEXA CLINICAL INFORMATION: Right adnexal mass and fullness in the posterior fundus of the uterus COMPARISON: CT abdomen pelvis earlier today TECHNIQUE: Both transabdominal and endovaginal scanning was performed. The examination was limited to evaluate the right adnexa only per Dr. Sims. The uterus was not intentionally imaged FINDINGS: An anteverted uterus is present but was not measured and not imaged. The large posterior fundal folds in the uterus was not assessed on the current study. The right ovary is visualized measuring 3.9 x 2.9 x 2.9 cm. Adjacent to the right ovary is a cyst measuring 5.9 x 5.4 x 6.9 cm. This cyst contains a single thin septation. No solid vascular components are seen. US/US transvaginal IMPRESSION: Large cyst in the right adnexa adjacent to the right ovary as described above. A single thin septation is noted with no solid components seen. The uterus was not evaluated. Dictated By:CHERISE MONTEIRO MDSigned By:<Electronically signed by CHERISE MONTEIRO MD in OV> Discharge Plan Discharge Clinical Impression: Ovarian cyst Qualifiers: Laterality: right Qualified Code(s): N83.201 - Unspecified ovarian cyst, right side Patient Disposition: Home, Self-Care Instructions: Ovarian Cyst (ED) Additional Instructions: Follow-up with tonnage compilation clerk Tramadol for pain Report to the ER if worsening of pain Prescriptions: No Action ezetimibe 10 mg tablet 10 mg PO DAILY 90 Days Qty: 90 RF: 3 rosuvastatin [Crestor] 40 mg tablet 40 mg PO DAILY RF: 0 Repatha SureClick 140 mg/mL pen injector 140 mg subcut Q2W 90 Days Qty: 7 RF: 3 fenofibrate 54 mg tablet 54 mg PO DAILY 90 Days Qty: 90 RF: 1 Eliquis 5 mg tablet See Rx Instructions .ROUTE .COMPLEX Qty: 80 RF: 0 sumatriptan succinate 50 mg tablet 50 mg PO Q2-4H PRN (Reason: migraine headache) Qty: 10 RF: 0 tramadol 50 mg Tablet 50 mg PO BID PRN (Reason: Pain) RF: 0 hydrocodone-homatropine 5-1.5 mg/5 mL (5 mL) syrup 5 ml PO Q6H PRN (Reason: cough) Qty: 60 RF: 0 prednisone 20 mg tablet 40 mg PO DAILY 4 Days Qty: 8 RF: 0 albuterol sulfate 90 mcg/actuation aerosol powdr breath activated 1 inh inhalation Q4-6H PRN (Reason: Gastric Reflux) RF: 0 lorazepam [Ativan] 2 mg tablet 2 mg PO BEDTIME PRN (Reason: Anxiety) RF: 0 Flovent HFA 110 mcg/actuation HFA aerosol inhaler 1 puff inhalation BID RF: 0 zolpidem [Ambien] 10 mg tablet 5 mg PO BEDTIME PRN (Reason: Anxiety) RF: 0 aspirin [Adult Low Dose Aspirin] 81 mg tablet,delayed release (DR/EC) 81 mg PO DAILY RF: 0 cholecalciferol (vitamin D3) 25 mcg (1,000 unit) capsule 25 mcg PO DAILY RF: 0 methocarbamol 500 mg tablet 500 mg PO QID PRN (Reason: Muscle Spasm) RF: 0 gabapentin [Neurontin] 400 mg capsule 400 mg PO DAILY RF: 0 pantoprazole [Protonix] 40 mg tablet,delayed release (DR/EC) 40 mg PO DAILY RF: 0 docusate sodium [Colace] 100 mg capsule 100 mg PO DAILY PRN (Reason: Constipation) RF: 0 amlodipine [Norvasc] 5 mg tablet 5 mg PO DAILY RF: 0 Referrals: Irving Michael MD [Physician] - 3 days Interventions: ED Discharge Assessment Last Done: 10/08/20 21:03 Discharge Date/Time: 10/08/20 21:04 [facility] Past Medical History Medical History Acid reflux Coronary artery disease Fatty liver Fibromyalgia Gall bladder polyp Hyperlipidemia Hypertension Obesity (BMI 30-39.9) Sleep apnea Surgical History History of cardiac cath History of endometrial ablation Hx of tubal ligation Family History Family History Paternal Grandfather No problems noted. Father History of cancer Lung cancer Mother Heart disease Social History Social History Household Members: Significant Other and Children Housing: Apartment Do you presently have visiting nurse or other home services: No Alcohol intake: never Patient Tobacco Use Status: Never used Tobacco Years Smoked: Prior smoker, no alcohol or drug use Second Hand Smoke Exposure: No service: No Current occupational status: disabled
[2020-10-08] MEDS: oxyCODONE HCl Immed Release 5 MG TABLET 10 MG PO (17:27)
[2020-10-08 17:28] VITALS: BP 166/92; PULSE 83; RESP 16; O2SAT 98
[2020-10-08 18:37] VITALS: BP 148/81; PULSE 99; RESP 18; O2SAT 98
--- NOTE | 2020-10-08 19:41 | PC.NURSE ---
Pt returns from [facility], requesting food/drink.
[2020-10-08 21:03] VITALS: BP 142/80; PULSE 78; RESP 16
== END 2020-10-08 21:04 | disposition home or self-care (01) ==
PROVIDERS: Emergency Provider Internal Medicine; PCP Family Medicine
DX: R10.2 Pelvic and perineal pain (principal); R10.9 Unspecified abdominal pain; M54.5 Low back pain; M25.562 Pain in left knee; M25.572 Pain in left ankle and joints of left foot
CPT/HCPCS: 74176; 76830; 76857; 99284

== ENCOUNTER 2020-10-14 13:21 | Outpatient (REF) | payer MEDICAID, SELFPAY ==
--- NOTE | ~2020-10-14 | US_ITS ---
EXAMINATION: US PELVIS COMPLETE US TRANSVAGINAL CLINICAL INFORMATION: Other ovarian cyst. COMPARISON: Pelvic ultrasound 10/08/2020 and ultrasound 07/16/2018. TECHNIQUE: Transabdominal and transvaginal followup ultrasound was performed to previous exam. FINDINGS: The uterus is anteverted and anteflexed measuring 9.7 cm in length, 5.9 cm in AP and 7.3 cm in transverse dimension. Endometrial thickness is 0.5 cm. There is a large hypoechoic area in the right body of uterus measuring 6.2 x 4.4 x 5.7 cm. On 2019 ultrasound pelvis exam it measured 5.8 x 4.4 x 4.9 cm. No additional lesions seen. There are small nabothian cysts seen in the cervix. The right ovary is not visualized. The left ovary measures 4.0 x 2.4 x 2.7 cm and volume 13.6 mL. There is a large right adnexal cyst measuring 5.8 x 5.8 x 6.3 cm with central thin septations. On the last ultrasound exam it measured 5.9 x 5.4 x 6.9 cm. It was not seen on 2019 ultrasound exam. There is no free fluid in the cul-de-sac. US/US pelvic complete IMPRESSION: Right adnexal cyst measuring 6.3 cm, the largest measurement. Previously it measured 6.9 cm on 10/08/[address] and [address] abdomen and pelvis exam 10/08/2020. The cyst is stable. Moderate-size right uterine fibroid, minimally increased since previous ultrasound exam 2019. There is no free fluid in cul-de-sac. Small nabothian cysts in cervix.
--- NOTE | ~2020-10-14 | US_ITS ---
EXAMINATION: US PELVIS COMPLETE US TRANSVAGINAL CLINICAL INFORMATION: Other ovarian cyst. COMPARISON: Pelvic ultrasound 10/08/2020 and ultrasound 07/16/2018. TECHNIQUE: Transabdominal and transvaginal followup ultrasound was performed to previous exam. FINDINGS: The uterus is anteverted and anteflexed measuring 9.7 cm in length, 5.9 cm in AP and 7.3 cm in transverse dimension. Endometrial thickness is 0.5 cm. There is a large hypoechoic area in the right body of uterus measuring 6.2 x 4.4 x 5.7 cm. On 2019 ultrasound pelvis exam it measured 5.8 x 4.4 x 4.9 cm. No additional lesions seen. There are small nabothian cysts seen in the cervix. The right ovary is not visualized. The left ovary measures 4.0 x 2.4 x 2.7 cm and volume 13.6 mL. There is a large right adnexal cyst measuring 5.8 x 5.8 x 6.3 cm with central thin septations. On the last ultrasound exam it measured 5.9 x 5.4 x 6.9 cm. It was not seen on 2019 ultrasound exam. There is no free fluid in the cul-de-sac. US/US transvaginal IMPRESSION: Right adnexal cyst measuring 6.3 cm, the largest measurement. Previously it measured 6.9 cm on 10/08/[address] and [address] abdomen and pelvis exam 10/08/2020. The cyst is stable. Moderate-size right uterine fibroid, minimally increased since previous ultrasound exam 2019. There is no free fluid in cul-de-sac. Small nabothian cysts in cervix.
[2020-10-15 09:16] LABS: CA-125 5 U/mL (<35)
[2020-10-15 12:38] LABS: CT PCR NOT DETECTED (Not Detect.)
[2020-10-15 12:39] LABS: NG PCR NOT DETECTED (Not Detect.)
== END 2020-10-14 13:22 | disposition home or self-care (01) ==
LOC: HO.US 13:21
PROVIDERS: Absent Provider Obstetrics & Gynecology; PCP Family Medicine; Visit Provider Family Medicine
DX: Z11.3 Encounter for screening for infections with a predominantly sexual mode of transmission (principal); N83.299 Other ovarian cyst, unspecified side
CPT/HCPCS: 76830; 76856; 86304; 87491; 87591

== ENCOUNTER 2020-10-21 23:11 | Emergency (ER) | payer MEDICAID, SELFPAY ==
--- NOTE | ~2020-10-21 | CT_ITS ---
EXAMINATION: CT ABDOMEN AND PELVIS WITHOUT CONTRAST CLINICAL INFORMATION: Right flank pain COMPARISON: 10/08/2020 TECHNIQUE: Multidetector volumetric imaging was performed from the superior aspect of the liver through the pubic symphysis. Sagittal and coronal reformatted images were obtained on the technologist's workstation. This CT examination was performed using dose optimization techniques as appropriate, variously including the following: *Automated exposure control *Adjustment of mA and/or kV according to patient size (this includes techniques or standardized protocols for targeted exams where dose is matched to indication/reason for exam; i.e. extremities or head) *Use of iterative reconstruction technique DLP: 755 mGy-cm FINDINGS: LUNG BASES: Multiple calcified granulomata are seen at both lung bases. LIVER, GALLBLADDER, AND BILIARY TREE: The liver is normal in size, shape, and attenuation. No focal hepatic lesion or biliary ductal dilatation is present. The gallbladder is retracted with no evidence of radiopaque gallstones, gallbladder wall thickening, or obvious pericholecystic inflammatory changes. PANCREAS: Unremarkable. SPLEEN: Unremarkable. ADRENAL GLANDS: Unremarkable. KIDNEYS AND URETERS: The kidneys are normal in size, shape, and attenuation. No hydronephrosis, hydroureter, or calculi seen. No perinephric stranding. BLADDER: Unremarkable. GASTROINTESTINAL TRACT: The stomach is unremarkable. Normal caliber small bowel. There is no obstruction. Normal appendix. No colonic wall thickening or acute inflammatory change. No free air or free fluid. ABDOMINAL WALL: No significant hernia is appreciated. LYMPH NODES: Normal. VASCULAR: Normal caliber aorta. Mild atherosclerotic calcification. PELVIC VISCERA: Anteverted uterus. 6.2 cm hypoattenuating mass of the right uterine fundus is unchanged from prior, likely representing a fibroid. Redemonstration of the cystic lesion in the right adnexa measuring 7.9 cm. This is unchanged from recent prior. OSSEOUS STRUCTURES: No acute or suspicious osseous abnormality. CT/CT abdomen pelvis wo con IMPRESSION: No acute findings in the abdomen or pelvis. No hydronephrosis or nephrolithiasis. Redemonstration of the right uterine fibroid. Redemonstration of the cystic right adnexal lesion, similar to prior.
[2020-10-21 23:15] VITALS: BP 147/78; PULSE 105; RESP 20; TEMP 36; O2SAT 97; BMI 44.9
--- NOTE | 2020-10-22 00:51 | ED_ITS ---
HPI - General Adult General Chief complaint: General Medical Stated complaint: Multiple Complaints Time Seen by Provider: 10/22/20 00:36 Source: patient Mode of arrival: ambulatory Limitations: no limitations History of Present Illness HPI narrative: Patient comes emergency room complaining of right flank pain. Patient states it started 4 days ago, states it is constant, radiating towards the suprapubic area, patient states she feels a lot of pressure but no pain, no dysuria, no hematuria. Patient denies fever. Patient states her last bowel movement was 3 hours prior to arrival, no vomiting, no diarrhea. Patient also complaining of abdominal distension. Related Data Home Medications Medication Instructions Recorded Confirmed albuterol sulfate 90 mcg/actuation 1 inh INHALATION Q4-6H PRN 03/26/20 08/12/20 breath activated powder inhaler amlodipine 5 mg tablet 5 mg PO DAILY 03/26/20 08/12/20 aspirin 81 mg tablet,delayed 81 mg PO DAILY 03/26/20 08/12/20 release cholecalciferol (vitamin D3) 25 25 mcg PO DAILY 03/26/20 08/12/20 mcg (1,000 unit) capsule docusate sodium 100 mg capsule 100 mg PO DAILY PRN 03/26/20 08/12/20 fluticasone propionate 110 1 puff INHALATION BID 03/26/20 08/12/20 mcg/actuation HFA aerosol inhaler gabapentin 400 mg capsule 400 mg PO DAILY 03/26/20 08/12/20 lorazepam 2 mg tablet 2 mg PO BEDTIME PRN 03/26/20 08/12/20 methocarbamol 500 mg tablet 500 mg PO QID PRN 03/26/20 08/12/20 pantoprazole 40 mg tablet,delayed 40 mg PO DAILY 03/26/20 08/12/20 release zolpidem 10 mg tablet 5 mg PO BEDTIME PRN 03/26/20 08/12/20 tramadol 50 mg PO BID PRN 05/20/20 06/11/20 rosuvastatin 40 mg tablet 40 mg PO DAILY 08/27/20 Previous Rx's Medication Instructions Recorded fenofibrate 54 mg tablet 54 mg PO DAILY 30 Days #30 tab 03/27/20 apixaban [Eliquis] See Rx Instructions .ROUTE 05/15/20 .COMPLEX #80 tab hydrocodone-homatropine 5 ml PO Q6H PRN #60 ml 01/03/21 ezetimibe 10 mg tablet 10 mg PO DAILY 90 Days #90 tab 08/24/20 alirocumab 75 mg/mL subcutaneous 75 mg SUBCUT Q2W 90 Days #7 ml 08/27/20 pen injector amoxicillin 500 mg PO BID 10 Days #20 cap 08/27/20 prednisone 40 mg PO DAILY 4 Days #8 tab 10/05/20 Allergies Allergy/AdvReac Type Severity Reaction Status Date / Time loratadine [From CLARITIN] Allergy Mild CHILLS AND Verified 10/14/20 11:45 DIFF BREATHING Review of Systems Review of Systems: Constitutional : No Weight loss, No Fever, No Chills, No Night Sweats, No Fatigue, No Malaise ENT/Mouth : No Hearing loss, No Ear Pain, No Nasal Congestion, No Sinus Pain, No Hoarseness, No sore throat, No Rhinorrhea, No Swallowing Difficulty Eyes: No Eye Pain, No Swelling, No Redness, No Foreign Body, No Discharge, No Vision Changes Cardiovascular : No Chest Pain, No SOB, No Dyspnea on Exertion, No Orthopnea, No Edema, No Palpitations Respiratory : No Cough, No Sputum, No Wheezing, No Smoke Exposure, No Dyspnea Gastrointestinal : No Nausea, No Vomiting, No Diarrhea, No Constipation, complaining of abdominal distension, no abdominal pain, complaining of right flank pain, No Hematochezia, No Melena Genitourinary : no irregular bleeding, No Dysuria, No Urinary Frequency, No Hematuria, No Urinary Incontinence, No Urgency, No Flank Pain, No Urinary Flow Changes, No Hesitancy Musculoskeletal chronic right hip throbbing pain, No Myalgias, No Joint Swelling Skin : No Skin Lesions, No rash Neuro : No Weakness, No Numbness, No Paresthesias, No Loss of Consciousness, No Dizziness, No Headache Psych : No Anxiety/Panic, No Depression, No SI/HI/AH/VH, No Social Issues, Heme/Lymph: No Bruising, No Bleeding,No Lymphadenopathy Endocrine : No Polyuria, No Polydipsia, No Temperature Intolerance FOR[facility] Past Medical History Medical History Acid reflux Coronary artery disease Fatty liver Fibromyalgia Gall bladder polyp Hyperlipidemia Hypertension Obesity (BMI 30-39.9) Sleep apnea Surgical History History of cardiac cath History of endometrial ablation Hx of tubal ligation Family History Family History Paternal Grandfather No problems noted. Father History of cancer Lung cancer Mother Heart disease Social History Social History Household Members: Significant Other and Children Housing: Apartment Alcohol intake: never Smoking Status: Never smoker Years Smoked: Prior smoker, no alcohol or drug use Second Hand Smoke Exposure: No Advance Directives: No service: No Current occupational status: disabled Physical Exam Vital Signs: Vital Signs: Last Vital Signs Temp 96.8 F 10/21/20 23:15 Pulse 105 H 10/21/20 23:15 Resp 20 10/21/20 23:15 BP 147/78 H 10/21/20 23:15 Pulse Ox 97 10/21/20 23:15 Body Mass Index 44.9 Appearance: Alert. Oriented X3. No acute distress. Anxious Eyes: Pupils equal, round and reactive to light. ENT: Pharynx normal. Neck: Normal inspection. Neck supple. No lymph nodes noted. No crepitus CVS: Normal heart rate and rhythm. Pulses normal. Normal S1 and S2 Respiratory: No respiratory distress. Breath sounds normal. No Wheezing. No rales Abdomen: Soft and nontender. No rigidity. No distention. good BS x4 Skin: Skin warm and dry. Normal skin color. Normal skin turgor. Extremities: No lower extremity edema. No Rash Neuro: Oriented X 3. No motor deficit. No sensory deficit. Moving all extermities. No slurred speech. Course Course Course Narrative: Overall patient is feeling better, I discussed the CT scan and labs with the patient, no acute finding. Patient likely having musculoskeletal pain. Medical Decision Making Lab Data Result diagrams: 10/22/20 01:02 10/22/20 01:02 Labs: Lab Results 10/22/20 10/22/20 10/22/20 Range/Units 01:02 01:02 01:02 WBC 7.3 (4.8-10.8) X10*3/uL RBC 4.13 L (4.20-5.50) X10*6/uL Hgb 12.8 (12.0-16.0) g/dl Hct 38.4 (37-47) % MCV 93.0 (80-98) fL MCH 31.0 (27.0-33.0) pg MCHC 33.3 (31.0-35.0) g/dl RDW 13.0 (11.0-16.0) % Plt Count 233 (160-400) X10*3/uL MPV 11.1 (9.4-12.3) fL Immature Gran % (Auto) 0.1 (0.0-0.4) % Neut % (Auto) 40.7 L (45-73) % Lymph % (Auto) 48.2 H (20-40) % [place] % (Auto) 10.4 (2-11) % Eos % (Auto) 0.5 (0-4) % Baso % (Auto) 0.1 (0-2) % Lymph # (Auto) 3.5 (1.2-4.9) X10*3/uL [place] # (Auto) 0.8 (0.1-1.2) X10*3/uL Eos # (Auto) 0.0 (0.0-0.4) X10*3/uL Baso # (Auto) 0.0 (0.0-0.2) X10*3/uL Abs Immat Gran (auto) 0.01 (0.00-0.03) X10*3/uL Absolute Neuts (auto) 3.0 (2.0-8.3) X10*3/uL Absolute Nucleated RBC 0.000 (0.0-0.012) X10*3/uL Nucleated RBC % (auto) 0.0 (0.0-0.2) /100WBC Sodium 140 (135-145) mmol/L Potassium 4.0 (3.3-5.1) mmol/L Chloride 106 (96-108) mmol/L Carbon Dioxide 24 (22-29) mmol/L Anion Gap 14 (12-20) BUN 22 H D (9-16) mg/dL Creatinine 0.96 (0.5-1.4) mg/dL Estim Creat Clear Calc 78.0 Estimated GFR > 60 Random Glucose 104 (60-115) mg/dL Calcium 9.6 D (8.4-10.2) mg/dL Total Bilirubin 0.3 (0.0-1.0) mg/dL Direct Bilirubin < 0.2 (0.0-0.5) mg/dL AST 24 (5-31) U/L ALT 39 H (0-31) U/L Alkaline Phosphatase 75 (39-117) U/L Total Protein 7.5 (6.5-8.0) g/dL Albumin 4.6 (3.5-5.0) g/dL Urine Color STRAW Urine Appearance CLEAR Urine pH 6.5 (5.0-8.0) Ur Specific [place] 1.010 (1.005-1.025) Urine Protein NEG (NEG-TRACE) MG/DL Urine Glucose (UA) NEG (NEG) MG/DL Urine Ketones NEG (NEG) MG/DL Urine Blood NEG (NEG) Urine Nitrite NEG (NEG) Ur Leukocyte Esterase NEG (NEG) Imaging Data CT abdomen: Radiologist's impression: FINDINGS: LUNG BASES: Multiple calcified granulomata are seen at both lung bases. LIVER, GALLBLADDER, AND BILIARY TREE: The liver is normal in size, shape, and attenuation. No focal hepatic lesion or biliary ductal dilatation is present. The gallbladder is retracted with no evidence of radiopaque gallstones, gallbladder wall thickening, or obvious pericholecystic inflammatory changes. PANCREAS: Unremarkable. SPLEEN: Unremarkable. ADRENAL GLANDS: Unremarkable. KIDNEYS AND URETERS: The kidneys are normal in size, shape, and attenuation. No hydronephrosis, hydroureter, or calculi seen. No perinephric stranding. BLADDER: Unremarkable. GASTROINTESTINAL TRACT: The stomach is unremarkable. Normal caliber small bowel. There is no obstruction. Normal appendix. No colonic wall thickening or acute inflammatory change. No free air or free fluid. ABDOMINAL WALL: No significant hernia is appreciated. LYMPH NODES: Normal. VASCULAR: Normal caliber aorta. Mild atherosclerotic calcification. PELVIC VISCERA: Anteverted uterus. 6.2 cm hypoattenuating mass of the right uterine fundus is unchanged from prior, likely representing a fibroid. Redemonstration of the cystic lesion in the right adnexa measuring 7.9 cm. This is unchanged from recent prior. OSSEOUS STRUCTURES: No acute or suspicious osseous abnormality. CT/CT abdomen pelvis wo con IMPRESSION: No acute findings in the abdomen or pelvis. No hydronephrosis or nephrolithiasis. Redemonstration of the right uterine fibroid. Redemonstration of the cystic right adnexal lesion, similar to prior. Discharge Plan Discharge Clinical Impression: Flank pain Patient Disposition: Home, Self-Care Instructions: Flank Pain (ED) Additional Instructions: Please follow-up with your primary care physician tomorrow. If you have any worsening or new symptoms, please return to the emergency room or call 911 Prescriptions: No Action fenofibrate 54 mg tablet 54 mg PO DAILY 30 Days Qty: 30 RF: 5 ezetimibe 10 mg tablet 10 mg PO DAILY 90 Days Qty: 90 RF: 3 rosuvastatin [Crestor] 40 mg tablet 40 mg PO DAILY RF: 0 Praluent Pen 75 mg/mL pen injector 75 mg subcut Q2W 90 Days Qty: 7 RF: 3 Eliquis 5 mg tablet See Rx Instructions .ROUTE .COMPLEX Qty: 80 RF: 0 tramadol 50 mg Tablet 50 mg PO BID PRN (Reason: Pain) RF: 0 hydrocodone-homatropine 5-1.5 mg/5 mL (5 mL) syrup 5 ml PO Q6H PRN (Reason: cough) Qty: 60 RF: 0 amoxicillin 500 mg capsule 500 mg PO BID 10 Days Qty: 20 RF: 0 prednisone 20 mg tablet 40 mg PO DAILY 4 Days Qty: 8 RF: 0 albuterol sulfate 90 mcg/actuation aerosol powdr breath activated 1 inh inhalation Q4-6H PRN (Reason: Gastric Reflux) RF: 0 lorazepam [Ativan] 2 mg tablet 2 mg PO BEDTIME PRN (Reason: Anxiety) RF: 0 Flovent HFA 110 mcg/actuation HFA aerosol inhaler 1 puff inhalation BID RF: 0 zolpidem [Ambien] 10 mg tablet 5 mg PO BEDTIME PRN (Reason: Anxiety) RF: 0 aspirin [Adult Low Dose Aspirin] 81 mg tablet,delayed release (DR/EC) 81 mg PO DAILY RF: 0 cholecalciferol (vitamin D3) 25 mcg (1,000 unit) capsule 25 mcg PO DAILY RF: 0 methocarbamol 500 mg tablet 500 mg PO QID PRN (Reason: Muscle Spasm) RF: 0 gabapentin [Neurontin] 400 mg capsule 400 mg PO DAILY RF: 0 pantoprazole [Protonix] 40 mg tablet,delayed release (DR/EC) 40 mg PO DAILY RF: 0 docusate sodium [Colace] 100 mg capsule 100 mg PO DAILY PRN (Reason: Constipation) RF: 0 amlodipine [Norvasc] 5 mg tablet 5 mg PO DAILY RF: 0
--- NOTE | 2020-10-22 01:06 | PC.NURSE ---
IV established, labs and UA obtained and sent. Pt aware of plan for CT. Continue to monitor.
[2020-10-22 01:07] LABS: MANUAL DIFF FLAG NO
[2020-10-22 01:08] LABS: Basophils Percent Auto 0.1 % (0-2); Eosinophils Percent Auto 0.5 % (0-4); Hematocrit 38.4 % (37-47); Hemoglobin 12.8 g/dl (12.0-16.0); Imm Gran Abs Auto 0.01 X10*3/uL (0.00-0.03); Imm Gran Pct Auto 0.1 % (0.0-0.4); Lymphocytes Absolute Auto 3.5 X10*3/uL (1.2-4.9); Lymphocytes Percent Auto 48.2 % (20-40); Mean Corpuscular HGB Conc 33.3 g/dl (31.0-35.0); Mean Platelet Volume 11.1 fL (9.4-12.3); Monocytes Absolute Auto 0.8 X10*3/uL (0.1-1.2); Monocytes Percent Auto 10.4 % (2-11); Neutrophils Percent Auto 40.7 % (45-73); Platelet Count 233 X10*3/uL (160-400); Red Blood Count 4.13 X10*6/uL (4.20-5.50); White Blood Count 7.3 X10*3/uL (4.8-10.8)
[2020-10-22 01:13] LABS: Appearance Urine CLEAR; Color Urine STRAW; Glucose Urine UA NEG (NEG); Leukocyte Esterase Urine NEG (NEG); Nitrite Urine NEG (NEG); PH 6.5 (5.0-8.0); UACC Culture Trigger NO; Urine Blood NEG (NEG); Urine Ketones NEG (NEG); Urine Protein NEG (NEG-TRACE)
--- NOTE | 2020-10-22 01:15 | PC.NURSE ---
Pt returns from CT on hospital without incident.
[2020-10-22 01:35] LABS: Alanine Aminotransferase 39 U/L (0-31); Albumin Level 4.6 g/dL (3.5-5.0); Alkaline Phosphatase 75 U/L (39-117); Anion Gap 14 (12-20); Aspartate Amino Transferase 24 U/L (5-31); Bilirubin Direct < 0.2 mg/dL (0.0-0.5); Bilirubin Total 0.3 mg/dL (0.0-1.0); Blood Urea Nitrogen 22 mg/dL (9-16); Calcium 9.6 mg/dL (8.4-10.2); Carbon Dioxide 24 mmol/L (22-29); Chloride 106 mmol/L (96-108); Estimated Glomerular Filt Rate > 60; Glucose Random 104 mg/dL (60-115); Sodium 140 mmol/L (135-145); Total Protein 7.5 g/dL (6.5-8.0)
== END 2020-10-22 03:17 | disposition home or self-care (01) ==
PROVIDERS: Emergency Provider Emergency Medicine; PCP Family Medicine
DX: R10.9 Unspecified abdominal pain (principal); Z87.891 Personal history of nicotine dependence; Z79.899 Other long term (current) drug therapy; Z79.82 Long term (current) use of aspirin
CPT/HCPCS: 36415; 74176; 80048; 80076; 81003; 85025; 99283

== ENCOUNTER 2020-10-26 15:42 | Emergency (ER) | payer MEDICAID, SELFPAY ==
--- NOTE | ~2020-10-26 | US_ITS ---
EXAMINATION: US VENOUS ULTRASOUND WITH DOPPLER LOWER EXTREMITY, RIGHT CLINICAL INFORMATION: Right leg swelling. COMPARISON: None TECHNIQUE: Ultrasound of the deep veins is performed from the hip to the calf with compression sonography and color and pulse Doppler assessment. Spectral analysis with color-flow imaging is performed. FINDINGS: There is normal venous compression and respiratory variation and augmented flow. The visualized common femoral vein, superficial femoral vein, profunda femoral vein, popliteal vein, and the trifurcation region shows no evidence of deep venous thrombosis. There is no significant popliteal fossa cyst. If the patient's symptoms persist, followup ultrasound in 5 days 7 days might be of value to exclude proximal propagation from a non-visualized calf vein. US/US venous duplex LE RT IMPRESSION: No evidence for deep venous thrombosis in the visualized veins of the right lower extremity.
[2020-10-26 15:49] VITALS: BP 156/94; PULSE 90; RESP 16; TEMP 36.7; O2SAT 97; BMI 40.8
[2020-10-26 17:42] VITALS: BP 154/87; PULSE 74; RESP 16; TEMP 36.2; O2SAT 99
[2020-10-26 18:51] LABS: MANUAL DIFF FLAG NO
[2020-10-26 18:52] LABS: Basophils Percent Auto 0.2 % (0-2); Eosinophils Percent Auto 0.7 % (0-4); Hematocrit 40.5 % (37-47); Hemoglobin 13.3 g/dl (12.0-16.0); Imm Gran Abs Auto 0.01 X10*3/uL (0.00-0.03); Imm Gran Pct Auto 0.2 % (0.0-0.4); Lymphocytes Absolute Auto 2.6 X10*3/uL (1.2-4.9); Lymphocytes Percent Auto 44.4 % (20-40); Mean Corpuscular HGB Conc 32.8 g/dl (31.0-35.0); Mean Corpuscular Hemoglobin 30.5 pg (27.0-33.0); Mean Corpuscular Volume 92.9 fL (80-98); Mean Platelet Volume 11.2 fL (9.4-12.3); Monocytes Absolute Auto 0.6 X10*3/uL (0.1-1.2); Monocytes Percent Auto 9.5 % (2-11); Neutrophils Absolute Auto 2.6 X10*3/uL (2.0-8.3); Platelet Count 232 X10*3/uL (160-400); Red Blood Count 4.36 X10*6/uL (4.20-5.50); Red Cell Distribution Width 12.7 % (11.0-16.0); White Blood Count 5.8 X10*3/uL (4.8-10.8)
[2020-10-26 18:59] LABS: INTERNATIONAL NORM RATIO 1.1 (0.9-1.1); Prothrombin Time 12.5 SEC (10.8-13.0)
[2020-10-26 19:02] LABS: D Dimer 243 NG/ML; Partial Thromboplastin Time 38.1 SEC (24.1-38.0)
[2020-10-26] MEDS: Acetaminophen 325 MG TABLET 650 MG PO (19:26)
[2020-10-26 19:27] LABS: Alanine Aminotransferase 46 U/L (0-31); Albumin Level 4.6 g/dL (3.5-5.0); Alkaline Phosphatase 76 U/L (39-117); Anion Gap 13 (12-20); Aspartate Amino Transferase 29 U/L (5-31); Bilirubin Total 0.4 mg/dL (0.0-1.0); Blood Urea Nitrogen 11 mg/dL (9-16); Calcium 10.9 mg/dL (8.4-10.2); Carbon Dioxide 24 mmol/L (22-29); Chloride 106 mmol/L (96-108); Creatinine Clr Calc Pharmacy 87.4; Estimated Glomerular Filt Rate > 60; Glucose Random 103 mg/dL (60-115); Potassium 4.3 mmol/L (3.3-5.1); Sodium 139 mmol/L (135-145); Total Protein 7.7 g/dL (6.5-8.0)
--- NOTE | 2020-10-26 20:22 | ED_ITS ---
HPI - General Adult General Chief complaint: Extremity Injury, Lower Stated complaint: Leg Swelling post J&J vaccine Time Seen by Provider: 10/26/20 18:31 Source: patient Mode of arrival: ambulatory Limitations: no limitations History of Present Illness HPI narrative: Patient presents to ED for right leg swelling. Patient referred by PCP to rule out DVT due to patient receiving J&J vaccine. Patient also states slight headache for the past 4 days. Patient denies any nausea, vomiting, blurry vision, slurred speech, photophobia, neck stiffness, teary eyes or recent head trauma. Related Data Home Medications Medication Instructions Recorded Confirmed albuterol sulfate 90 mcg/actuation 1 inh INHALATION Q4-6H PRN 03/26/20 08/12/20 breath activated powder inhaler amlodipine 5 mg tablet 5 mg PO DAILY 03/26/20 08/12/20 aspirin 81 mg tablet,delayed 81 mg PO DAILY 03/26/20 08/12/20 release cholecalciferol (vitamin D3) 25 25 mcg PO DAILY 03/26/20 08/12/20 mcg (1,000 unit) capsule docusate sodium 100 mg capsule 100 mg PO DAILY PRN 03/26/20 08/12/20 fluticasone propionate 110 1 puff INHALATION BID 03/26/20 08/12/20 mcg/actuation HFA aerosol inhaler gabapentin 400 mg capsule 400 mg PO DAILY 03/26/20 08/12/20 lorazepam 2 mg tablet 2 mg PO BEDTIME PRN 03/26/20 08/12/20 methocarbamol 500 mg tablet 500 mg PO QID PRN 03/26/20 08/12/20 pantoprazole 40 mg tablet,delayed 40 mg PO DAILY 03/26/20 08/12/20 release zolpidem 10 mg tablet 5 mg PO BEDTIME PRN 03/26/20 08/12/20 tramadol 50 mg PO BID PRN 05/20/20 06/11/20 rosuvastatin 40 mg tablet 40 mg PO DAILY 08/27/20 Previous Rx's Medication Instructions Recorded fenofibrate 54 mg tablet 54 mg PO DAILY 30 Days #30 tab 03/27/20 apixaban [Eliquis] See Rx Instructions .ROUTE 05/15/20 .COMPLEX #80 tab hydrocodone-homatropine 5 ml PO Q6H PRN #60 ml 06/28/20 ezetimibe 10 mg tablet 10 mg PO DAILY 90 Days #90 tab 08/24/20 alirocumab 75 mg/mL subcutaneous 75 mg SUBCUT Q2W 90 Days #7 ml 08/27/20 pen injector amoxicillin 500 mg PO BID 10 Days #20 cap 08/27/20 prednisone 40 mg PO DAILY 4 Days #8 tab 10/05/20 Allergies Allergy/AdvReac Type Severity Reaction Status Date / Time loratadine [From CLARITIN] Allergy Mild CHILLS AND Verified 10/14/20 11:45 DIFF BREATHING Review of Systems Review of Systems: Yes all other systems are reviewed and are negative Constitutional: Constitutional: Reports as per HPI, Reports no additional constitutional complaints and Reports headache(s) Eyes: Eyes: Reports as per HPI and Reports no additional eye complaints ENT: Reports system reviewed and no additional complaints, except as documented, Reports as per HPI and Reports headache(s) Cardiovascular: Cardiovascular: Reports as per HPI, Reports no additional cardiovascular complaints and Denies chest pain Respiratory: Respiratory: Reports as per HPI and Reports no additional respiratory complaints Gastrointestinal: Gastrointestinal: Reports as per HPI and Reports no additional gastrointestinal complaints Genitourinary: Genitourinary: Reports no additional female genitourinary complaints and Reports as per HPI Musculoskeletal: Musculoskeletal: Reports no additional musculoskeletal complaints and Reports as per HPI Comments: Right leg swelling Neurologic: Reports system reviewed and no additional complaints, except as documented, Reports as per HPI and Reports headache(s) [facility] Past Medical History Medical History Acid reflux Coronary artery disease Fatty liver Fibromyalgia Gall bladder polyp Hyperlipidemia Hypertension Obesity (BMI 30-39.9) Sleep apnea Surgical History History of cardiac cath History of endometrial ablation Hx of tubal ligation Family History Family History Paternal Grandfather No problems noted. Father History of cancer Lung cancer Mother Heart disease Social History Social History Household Members: Significant Other and Children Housing: Apartment Alcohol intake: never Smoking Status: Never smoker Years Smoked: Prior smoker, no alcohol or drug use Second Hand Smoke Exposure: No Advance Directives: No Advance Directives Information Provided: Yes service: No Current occupational status: disabled Physical Exam Vital Signs: Vital Signs: Last Vital Signs Temp 97.2 F 10/26/20 17:42 Pulse 74 10/26/20 17:42 Resp 16 10/26/20 17:42 BP 154/87 H 10/26/20 17:42 Pulse Ox 99 10/26/20 17:42 Body Mass Index 40.8 Const: General: cooperative, healthy appearing, comfortable, no acute distress, well developed, alert, awake and Physically active Orientation/consciousness: patient oriented x3 HENMT: Head: Yes normal to inspection, Yes No palpable skull fracture present, Yes normocephalic, Yes atraumatic, No abrasion, No Acrocyanosis present, No Leroy's sign, No contusion, No cranial bruits, No hematoma, No laceration, No occipital foramen tenderness, No palpable skull fracture, No raccoon eyes, No scalp lesion, No scalp tenderness, No Temporal artery tenderness present and No periorbital ecchymosis Eyes: General: appearance normal, both eyes and all related structures Neck: Neck: Yes normal visual inspection, Yes full ROM, Yes no lymphadenopathy, Yes no meningeal signs, Yes trachea midline, Yes supple and No tender Chest: Chest palpation & inspection: normal inspection of the chest and normal palpation of entire chest wall Resp: Effort & Inspection: normal respiratory effort and able to speak in complete sentences Auscultation: clear to auscultation bilaterally Cardio: Jugular venous distension: no JVD Heart sounds: S1 normal heart sound present and S2 normal heart sound present GI: Inspection: Yes normal to inspection Palpation (GI): Soft to palpation, not firm, nontender, no guarding and not rigid : General: No CVA tenderness and Yes no CVA tenderness Back/Spine/Pelvis: Back: no CVA tenderness, No CVA tenderness and No back tenderness Skin: General skin exam: no rashes or lesions noted and elasticity normal Neuro: General: patient oriented x3, no meningeal signs and CN's II-XI intact bilaterally Cranial nerves: Yes CN's II-XII intact bilaterally Extrem: Other: Right lower extremity slightly more swollen than left with calf tenderness. Negative for redness of right lower extremity. Vascular/motor/neuro exam of right extremity intact. Left lower extremity negative for swelling and normal. Motor/nurse and vascular exam of left upper extremity is normal General: Yes normal to inspection and Yes full ROM Psych: Appearance: grossly normal, well kempt and not disheveled Course Course Course Narrative: Patient will be sent for ultrasound to rule out DVT. Patient have labs including D-dimer due to patient having headache. Reevaluation(s) Reevaluation #1: Patient's ultrasound lower extremity came back negative for blood clot. Patient's D-dimer came back at 243 with positive D-dimer being more than 278. Patient's D-dimer at 243 makes it negative. Patient's headache resolved after receiving Tylenol. This makes cerebral venous thrombosis unlikely. Spoke with supervising doctor, Dr. Lutz, he states no imaging indicated to evaluate for cerebral cavernous thrombosis due to patient headache resolved with Tyleno with negative D-Dimer. Usually a cerebral venous thrombosis is not relieved with Tylenol. Patient presently not in any distress. Patient not having any photophobia, thunderclap headache, nausea, vomiting, neck pain, watery eyes, or any distress. Patient watching videos on her phone laughing. Medical Decision Making MDM Narrative Medical decision making narrative: Lower extremity edema. Lab Data Result diagrams: 10/26/20 18:43 10/26/20 18:43 Labs: Lab Results 10/26/20 10/26/20 10/26/20 Range/Units 18:43 18:43 18:43 WBC 5.8 (4.8-10.8) X10*3/uL RBC 4.36 (4.20-5.50) X10*6/uL Hgb 13.3 (12.0-16.0) g/dl Hct 40.5 (37-47) % MCV 92.9 (80-98) fL MCH 30.5 (27.0-33.0) pg MCHC 32.8 (31.0-35.0) g/dl RDW 12.7 (11.0-16.0) % Plt Count 232 (160-400) X10*3/uL MPV 11.2 (9.4-12.3) fL Immature Gran % (Auto) 0.2 (0.0-0.4) % Neut % (Auto) 45.0 (45-73) % Lymph % (Auto) 44.4 H (20-40) % [place] % (Auto) 9.5 (2-11) % Eos % (Auto) 0.7 (0-4) % Baso % (Auto) 0.2 (0-2) % Lymph # (Auto) 2.6 (1.2-4.9) X10*3/uL [place] # (Auto) 0.6 (0.1-1.2) X10*3/uL Eos # (Auto) 0.0 (0.0-0.4) X10*3/uL Baso # (Auto) 0.0 (0.0-0.2) X10*3/uL Abs Immat Gran (auto) 0.01 (0.00-0.03) X10*3/uL Absolute Neuts (auto) 2.6 (2.0-8.3) X10*3/uL Absolute Nucleated RBC 0.000 (0.0-0.012) X10*3/uL Nucleated RBC % (auto) 0.0 (0.0-0.2) /100WBC PT 12.5 (10.8-13.0) SEC INR 1.1 (0.9-1.1) APTT 38.1 H (24.1-38.0) SEC D-Dimer 243 NG/ML Sodium 139 (135-145) mmol/L Potassium 4.3 (3.3-5.1) mmol/L Chloride 106 (96-108) mmol/L Carbon Dioxide 24 (22-29) mmol/L Anion Gap 13 (12-20) BUN 11 (9-16) mg/dL Creatinine 0.81 (0.5-1.4) mg/dL Estim Creat Clear Calc 87.4 Estimated GFR > 60 Random Glucose 103 (60-115) mg/dL Calcium 10.9 H D (8.4-10.2) mg/dL Total Bilirubin 0.4 (0.0-1.0) mg/dL AST 29 (5-31) U/L ALT 46 H (0-31) U/L Alkaline Phosphatase 76 (39-117) U/L Total Protein 7.7 (6.5-8.0) g/dL Albumin 4.6 (3.5-5.0) g/dL Discharge Plan Discharge Clinical Impression: Leg edema, right Patient Disposition: Home, Self-Care Instructions: Acute Headache (ED), Leg Edema (ED) Additional Instructions: Regrese al servicio de urgencias de inmediato si tiene n?useas, v?mitos, dolor en el pecho, dificultad para respirar, dolor en la pantorrilla, empeoramiento de la hinchaz?n de las extremidades inferiores, empeoramiento del dolor de nolan, fotofobia, dolor de nolan en trueno, fabrice en los ojos, rigidez de lou, mareos o cualquier otro s?ntoma relacionado. Prescriptions: No Action fenofibrate 54 mg tablet 54 mg PO DAILY 30 Days Qty: 30 RF: 5 ezetimibe 10 mg tablet 10 mg PO DAILY 90 Days Qty: 90 RF: 3 rosuvastatin [Crestor] 40 mg tablet 40 mg PO DAILY RF: 0 Praluent Pen 75 mg/mL pen injector 75 mg subcut Q2W 90 Days Qty: 7 RF: 3 Eliquis 5 mg tablet See Rx Instructions .ROUTE .COMPLEX Qty: 80 RF: 0 tramadol 50 mg Tablet 50 mg PO BID PRN (Reason: Pain) RF: 0 hydrocodone-homatropine 5-1.5 mg/5 mL (5 mL) syrup 5 ml PO Q6H PRN (Reason: cough) Qty: 60 RF: 0 amoxicillin 500 mg capsule 500 mg PO BID 10 Days Qty: 20 RF: 0 prednisone 20 mg tablet 40 mg PO DAILY 4 Days Qty: 8 RF: 0 albuterol sulfate 90 mcg/actuation aerosol powdr breath activated 1 inh inhalation Q4-6H PRN (Reason: Gastric Reflux) RF: 0 lorazepam [Ativan] 2 mg tablet 2 mg PO BEDTIME PRN (Reason: Anxiety) RF: 0 Flovent HFA 110 mcg/actuation HFA aerosol inhaler 1 puff inhalation BID RF: 0 zolpidem [Ambien] 10 mg tablet 5 mg PO BEDTIME PRN (Reason: Anxiety) RF: 0 aspirin [Adult Low Dose Aspirin] 81 mg tablet,delayed release (DR/EC) 81 mg PO DAILY RF: 0 cholecalciferol (vitamin D3) 25 mcg (1,000 unit) capsule 25 mcg PO DAILY RF: 0 methocarbamol 500 mg tablet 500 mg PO QID PRN (Reason: Muscle Spasm) RF: 0 gabapentin [Neurontin] 400 mg capsule 400 mg PO DAILY RF: 0 pantoprazole [Protonix] 40 mg tablet,delayed release (DR/EC) 40 mg PO DAILY RF: 0 docusate sodium [Colace] 100 mg capsule 100 mg PO DAILY PRN (Reason: Constipation) RF: 0 amlodipine [Norvasc] 5 mg tablet 5 mg PO DAILY RF: 0 Referrals: Ava Yap DO [Primary Care Provider] - 2 days (Ultrasound negative for blood clot.) Discharge Date/Time: 10/26/20 21:02 Print Language: Japanese
== END 2020-10-26 21:02 | disposition home or self-care (01) ==
PROVIDERS: Physician Assistant; Emergency Provider Internal Medicine; PCP Family Medicine
DX: R60.0 Localized edema (principal); R51.9 Headache, unspecified; M79.662 Pain in left lower leg; I10 Essential (primary) hypertension; E78.5 Hyperlipidemia, unspecified; Z79.82 Long term (current) use of aspirin; Z79.899 Other long term (current) drug therapy; Z79.02 Long term (current) use of antithrombotics/antiplatelets; Z86.16 Personal history of COVID-19
CPT/HCPCS: 36415; 80053; 85025; 85379; 85610; 85730; 93971; 99284

== ENCOUNTER 2020-11-03 09:38 | Outpatient (REF) | payer MEDICAID, SELFPAY ==
[2020-11-03 11:56] LABS: Cholesterol 237 mg/dL; HDL Cholesterol 41 mg/dL; LDL Cholesterol Calculated 127 mg/dl; Triglycerides 345 mg/dL
== END 2020-11-03 09:39 | disposition home or self-care (01) ==
LOC: HO.LAB 09:38
PROVIDERS: PCP Family Medicine; Visit Provider Nurse Practitioner Family
DX: R07.9 Chest pain, unspecified (principal); E78.00 Pure hypercholesterolemia, unspecified; I25.10 Atherosclerotic heart disease of native coronary artery without angina pectoris; R00.2 Palpitations; I10 Essential (primary) hypertension; E78.5 Hyperlipidemia, unspecified
CPT/HCPCS: 36415; 80061; 93005; 99212

== ENCOUNTER 2020-11-04 23:46 | Emergency (ER) | payer MEDICAID, SELFPAY ==
--- NOTE | ~2020-11-04 | XR_ITS ---
EXAMINATION: XR CHEST CLINICAL INFORMATION: Chest pain COMPARISON: 10/04/2020 TECHNIQUE: Frontal view of the chest was obtained. FINDINGS: No significant abnormality is noted involving the heart, lungs, mediastinum, bony thorax or soft tissues. XR/XR chest 1V IMPRESSION: Unremarkable examination.
--- NOTE | 2020-11-04 23:53 | ECG_ITS ---
Test Reason : CP Blood Pressure : / mmHG Vent. Rate : 066 BPM Atrial Rate : 066 BPM P-R Int : 132 ms QRS Dur : 076 ms QT Int : 394 ms P-R-T Axes : 000 185 093 degrees QTc Int : 413 ms Suspect limb lead reversal, interpretation assumes no reversal Normal sinus rhythm Right superior axis deviation Possible Inferior infarct , age undetermined Abnormal ECG When compared with ECG of 29-JUL-2020 18:52, QRS axis Shifted left Possible Inferior infarct is now Present Referred By: Generic ED Physician Electronically Signed By:SHELLY ROSA MD
[2020-11-04 23:54] VITALS: BP 144/65; PULSE 71; RESP 20; TEMP 35.9; O2SAT 99; BMI 40.6
[2020-11-05 03:13] VITALS: BP 133/68; PULSE 69; RESP 13; TEMP 37; O2SAT 98
[2020-11-05 03:16] LABS: MANUAL DIFF FLAG NO
[2020-11-05 03:21] LABS: Basophils Percent Auto 0.3 % (0-2); Eosinophils Absolute Auto 0.1 X10*3/uL (0.0-0.4); Eosinophils Percent Auto 1.6 % (0-4); Hematocrit 40.1 % (37-47); Imm Gran Abs Auto 0.01 X10*3/uL (0.00-0.03); Imm Gran Pct Auto 0.2 % (0.0-0.4); Lymphocytes Absolute Auto 3.3 X10*3/uL (1.2-4.9); Lymphocytes Percent Auto 51.2 % (20-40); Mean Corpuscular HGB Conc 32.4 g/dl (31.0-35.0); Mean Corpuscular Hemoglobin 30.5 pg (27.0-33.0); Mean Corpuscular Volume 94.1 fL (80-98); Monocytes Absolute Auto 0.7 X10*3/uL (0.1-1.2); Monocytes Percent Auto 10.1 % (2-11); Neutrophils Absolute Auto 2.4 X10*3/uL (2.0-8.3); Neutrophils Percent Auto 36.6 % (45-73); Platelet Count 228 X10*3/uL (160-400); Red Blood Count 4.26 X10*6/uL (4.20-5.50); Red Cell Distribution Width 12.5 % (11.0-16.0); White Blood Count 6.4 X10*3/uL (4.8-10.8)
[2020-11-05 03:38] LABS: Anion Gap 13 (12-20); Blood Urea Nitrogen 15 mg/dL (9-16); Calcium 10.1 mg/dL (8.4-10.2); Carbon Dioxide 28 mmol/L (22-29); Chloride 104 mmol/L (96-108); Creatinine Clr Calc Pharmacy 75.9; Estimated Glomerular Filt Rate > 60; Glucose Random 121 mg/dL (60-115); Potassium 4.1 mmol/L (3.3-5.1); Sodium 141 mmol/L (135-145)
--- NOTE | 2020-11-05 03:44 | ED.GENADULT ---
HPI - General Adult General Chief complaint: General Medical Stated complaint: chest pain Time Seen by Provider: 11/05/20 03:37 Source: patient Mode of arrival: ambulatory Limitations: no limitations History of Present Illness HPI narrative: Patient comes emergency room complaining of constant chest pain for 4 days, and constant headache for 1 week. Patient states the chest pain is more like a pressure, nonradiating, substernal. Not related to exertion. Patient denies shortness of breath. Patient states that she has also had a headache for the last 8 days, has history of migraines, states this 1 feels different. Denies visual changes. Denies nausea vomiting, no diarrhea. Patient denies any other neurological deficits. Related Data Home Medications Medication Instructions Recorded Confirmed albuterol sulfate 90 mcg/actuation 1 inh INHALATION Q4-6H PRN 03/26/20 11/03/20 breath activated powder inhaler amlodipine 5 mg tablet 5 mg PO DAILY 03/26/20 11/03/20 aspirin 81 mg tablet,delayed 81 mg PO DAILY 03/26/20 11/03/20 release cholecalciferol (vitamin D3) 25 25 mcg PO DAILY 03/26/20 11/03/20 mcg (1,000 unit) capsule docusate sodium 100 mg capsule 100 mg PO DAILY PRN 03/26/20 11/03/20 fluticasone propionate 110 1 puff INHALATION BID 03/26/20 11/03/20 mcg/actuation HFA aerosol inhaler gabapentin 400 mg capsule 400 mg PO DAILY 03/26/20 11/03/20 lorazepam 2 mg tablet 2 mg PO BEDTIME PRN 03/26/20 11/03/20 methocarbamol 500 mg tablet 500 mg PO QID PRN 03/26/20 11/03/20 pantoprazole 40 mg tablet,delayed 40 mg PO DAILY 03/26/20 11/03/20 release zolpidem 10 mg tablet 5 mg PO BEDTIME PRN 03/26/20 11/03/20 tramadol 50 mg PO BID PRN 05/20/20 11/03/20 rosuvastatin 40 mg tablet 40 mg PO DAILY 08/27/20 11/03/20 Previous Rx's Medication Instructions Recorded fenofibrate 54 mg tablet 54 mg PO DAILY 30 Days #30 tab 03/27/20 apixaban [Eliquis] See Rx Instructions .ROUTE 05/15/20 .COMPLEX #80 tab hydrocodone-homatropine 5 ml PO Q6H PRN #60 ml 06/28/20 ezetimibe 10 mg tablet 10 mg PO DAILY 90 Days #90 tab 08/24/20 amoxicillin 500 mg PO BID 10 Days #20 cap 08/27/20 prednisone 40 mg PO DAILY 4 Days #8 tab 10/05/20 evolocumab 140 mg/mL subcutaneous 140 mg SUBCUT Q2W 90 Days #7 ml 11/04/20 pen injector sumatriptan succinate 50 mg PO Q2-4H PRN #10 tab 11/05/20 Allergies Allergy/AdvReac Type Severity Reaction Status Date / Time loratadine [From CLARITIN] Allergy Mild CHILLS AND Verified 11/05/20 00:09 DIFF BREATHING Review of Systems Review of Systems: Constitutional : No Weight loss, No Fever, No Chills, No Night Sweats, No Fatigue, No Malaise ENT/Mouth : No Hearing loss, No Ear Pain, No Nasal Congestion, No Sinus Pain, No Hoarseness, No sore throat, No Rhinorrhea, No Swallowing Difficulty Eyes: No Eye Pain, No Swelling, No Redness, No Foreign Body, No Discharge, No Vision Changes Cardiovascular : Constant chest pressure, substernal, No SOB, No Dyspnea on Exertion, No Orthopnea, No Edema, No Palpitations Respiratory : No Cough, No Sputum, No Wheezing, No Smoke Exposure, No Dyspnea Gastrointestinal : No Nausea, No Vomiting, No Diarrhea, No Constipation, No abdominal Pain, No Hematochezia, No Melena Genitourinary : no irregular bleeding, No Dysuria, No Urinary Frequency, No Hematuria, No Urinary Incontinence, No Urgency, No Flank Pain, No Urinary Flow Changes, No Hesitancy Musculoskeletal : No joint pain, No Myalgias, No Joint Swelling Skin : No Skin Lesions, No rash Neuro : No Weakness, No Numbness, No Paresthesias, No Loss of Consciousness, No Dizziness, complaining of a headache for 8 days, global, no neck pain Psych : No Anxiety/Panic, No Depression, No SI/HI/AH/VH, No Social Issues, Heme/Lymph: No Bruising, No Bleeding,No Lymphadenopathy Endocrine : No Polyuria, No Polydipsia, No Temperature Intolerance PMFSH Past Medical History Medical History Acid reflux Coronary artery disease Fatty liver Fibromyalgia Gall bladder polyp Hyperlipidemia Hypertension Obesity (BMI 30-39.9) Sleep apnea Surgical History History of cardiac cath History of endometrial ablation Hx of tubal ligation Family History Family History Paternal Grandfather No problems noted. Father History of cancer Lung cancer Mother Heart disease Social History Social History Household Members: Significant Other and Children Housing: Apartment Alcohol intake: never Smoking Status: Never smoker Years Smoked: Prior smoker, no alcohol or drug use Second Hand Smoke Exposure: No Advance Directives: No Advance Directives Information Provided: No service: No Current occupational status: disabled Physical Exam Vital Signs: Vital Signs: Last Vital Signs Temp 98.6 F 11/05/20 03:13 Pulse 69 11/05/20 03:13 Resp 13 11/05/20 03:13 BP 133/68 11/05/20 03:13 Pulse Ox 98 11/05/20 03:13 Body Mass Index 40.6 Appearance: Alert. Oriented X3. No acute distress. Eyes: Pupils equal, round and reactive to light. ENT: Pharynx normal. Neck: Normal inspection. Neck supple. No lymph nodes noted. No crepitus CVS: Normal heart rate and rhythm. Pulses normal. Normal S1 and S2, reproducible chest pain to palpation over the sternum Respiratory: No respiratory distress. Breath sounds normal. No Wheezing. No rales Abdomen: Soft and nontender. No rigidity. No distention. good BS x4 Skin: Skin warm and dry. Normal skin color. Normal skin turgor. Extremities: No lower extremity edema. No lower extremity edema. No Lacerations. No Rash Neuro: Oriented X 3. No motor deficit. No sensory deficit. Moving all extermities. No slurred speech. No neurological deficits, patient ambulatory Course Course Course Narrative: I discussed the labs with the patient. Troponin negative. Headache improved Medical Decision Making Lab Data Result diagrams: 11/05/20 03:10 11/05/20 03:10 Labs: Lab Results 11/05/20 11/05/20 11/05/20 Range/Units 03:10 03:10 03:10 WBC 6.4 (4.8-10.8) X10*3/uL RBC 4.26 (4.20-5.50) X10*6/uL Hgb 13.0 (12.0-16.0) g/dl Hct 40.1 (37-47) % MCV 94.1 (80-98) fL MCH 30.5 (27.0-33.0) pg MCHC 32.4 (31.0-35.0) g/dl RDW 12.5 (11.0-16.0) % Plt Count 228 (160-400) X10*3/uL MPV 11.0 (9.4-12.3) fL Immature Gran % (Auto) 0.2 (0.0-0.4) % Neut % (Auto) 36.6 L (45-73) % Lymph % (Auto) 51.2 H (20-40) % [place] % (Auto) 10.1 (2-11) % Eos % (Auto) 1.6 (0-4) % Baso % (Auto) 0.3 (0-2) % Lymph # (Auto) 3.3 (1.2-4.9) X10*3/uL [place] # (Auto) 0.7 (0.1-1.2) X10*3/uL Eos # (Auto) 0.1 (0.0-0.4) X10*3/uL Baso # (Auto) 0.0 (0.0-0.2) X10*3/uL Abs Immat Gran (auto) 0.01 (0.00-0.03) X10*3/uL Absolute Neuts (auto) 2.4 (2.0-8.3) X10*3/uL Absolute Nucleated RBC 0.000 (0.0-0.012) X10*3/uL Nucleated RBC % (auto) 0.0 (0.0-0.2) /100WBC D-Dimer 229 NG/ML Hold Blue Top SEE NOTE Sodium 141 (135-145) mmol/L Potassium 4.1 (3.3-5.1) mmol/L Chloride 104 (96-108) mmol/L Carbon Dioxide 28 (22-29) mmol/L Anion Gap 13 (12-20) BUN 15 (9-16) mg/dL Creatinine 0.93 (0.5-1.4) mg/dL Estim Creat Clear Calc 75.9 Estimated GFR > 60 Random Glucose 121 H (60-115) mg/dL Calcium 10.1 D (8.4-10.2) mg/dL Troponin I High Sens (<3.5-17.0) ng/L 11/05/20 Range/Units 03:11 WBC (4.8-10.8) X10*3/uL RBC (4.20-5.50) X10*6/uL Hgb (12.0-16.0) g/dl Hct (37-47) % MCV (80-98) fL MCH (27.0-33.0) pg MCHC (31.0-35.0) g/dl RDW (11.0-16.0) % Plt Count (160-400) X10*3/uL MPV (9.4-12.3) fL Immature Gran % (Auto) (0.0-0.4) % Neut % (Auto) (45-73) % Lymph % (Auto) (20-40) % [place] % (Auto) (2-11) % Eos % (Auto) (0-4) % Baso % (Auto) (0-2) % Lymph # (Auto) (1.2-4.9) X10*3/uL [place] # (Auto) (0.1-1.2) X10*3/uL Eos # (Auto) (0.0-0.4) X10*3/uL Baso # (Auto) (0.0-0.2) X10*3/uL Abs Immat Gran (auto) (0.00-0.03) X10*3/uL Absolute Neuts (auto) (2.0-8.3) X10*3/uL Absolute Nucleated RBC (0.0-0.012) X10*3/uL Nucleated RBC % (auto) (0.0-0.2) /100WBC D-Dimer NG/ML Hold Blue Top Sodium (135-145) mmol/L Potassium (3.3-5.1) mmol/L Chloride (96-108) mmol/L Carbon Dioxide (22-29) mmol/L Anion Gap (12-20) BUN (9-16) mg/dL Creatinine (0.5-1.4) mg/dL Estim Creat Clear Calc Estimated GFR Random Glucose (60-115) mg/dL Calcium (8.4-10.2) mg/dL Troponin I High Sens < 3.5 (<3.5-17.0) ng/L Imaging Data Chest x-ray: Radiologist's impression: No significant abnormality is noted involving the heart, lungs, mediastinum, bony thorax or soft tissues. XR/XR chest 1V IMPRESSION: Unremarkable examination. ECG Data Attestation: I personally reviewed and interpreted this ECG as follows: (Sinus rhythm, heart rate 66, incomplete right bundle branch block, QTC 413, no ST segment depression or elevations, no T-wave inversions) Discharge Plan Discharge Clinical Impression: Atypical chest pain, Headache, migraine Patient Disposition: Home, Self-Care Instructions: Chest Pain (ED) Additional Instructions: Please follow-up with your primary care physician tomorrow. If you have any worsening or new symptoms, please return to the emergency room or call 911 Prescriptions: New sumatriptan succinate 50 mg tablet 50 mg PO Q2-4H PRN (Reason: migraine headache) Qty: 10 RF: 0 No Action fenofibrate 54 mg tablet 54 mg PO DAILY 30 Days Qty: 30 RF: 5 ezetimibe 10 mg tablet 10 mg PO DAILY 90 Days Qty: 90 RF: 3 rosuvastatin [Crestor] 40 mg tablet 40 mg PO DAILY RF: 0 Repatha SureClick 140 mg/mL pen injector 140 mg subcut Q2W 90 Days Qty: 7 RF: 3 Eliquis 5 mg tablet See Rx Instructions .ROUTE .COMPLEX Qty: 80 RF: 0 tramadol 50 mg Tablet 50 mg PO BID PRN (Reason: Pain) RF: 0 hydrocodone-homatropine 5-1.5 mg/5 mL (5 mL) syrup 5 ml PO Q6H PRN (Reason: cough) Qty: 60 RF: 0 amoxicillin 500 mg capsule 500 mg PO BID 10 Days Qty: 20 RF: 0 prednisone 20 mg tablet 40 mg PO DAILY 4 Days Qty: 8 RF: 0 albuterol sulfate 90 mcg/actuation aerosol powdr breath activated 1 inh inhalation Q4-6H PRN (Reason: Gastric Reflux) RF: 0 lorazepam [Ativan] 2 mg tablet 2 mg PO BEDTIME PRN (Reason: Anxiety) RF: 0 Flovent HFA 110 mcg/actuation HFA aerosol inhaler 1 puff inhalation BID RF: 0 zolpidem [Ambien] 10 mg tablet 5 mg PO BEDTIME PRN (Reason: Anxiety) RF: 0 aspirin [Adult Low Dose Aspirin] 81 mg tablet,delayed release (DR/EC) 81 mg PO DAILY RF: 0 cholecalciferol (vitamin D3) 25 mcg (1,000 unit) capsule 25 mcg PO DAILY RF: 0 methocarbamol 500 mg tablet 500 mg PO QID PRN (Reason: Muscle Spasm) RF: 0 gabapentin [Neurontin] 400 mg capsule 400 mg PO DAILY RF: 0 pantoprazole [Protonix] 40 mg tablet,delayed release (DR/EC) 40 mg PO DAILY RF: 0 docusate sodium [Colace] 100 mg capsule 100 mg PO DAILY PRN (Reason: Constipation) RF: 0 amlodipine [Norvasc] 5 mg tablet 5 mg PO DAILY RF: 0
[2020-11-05 03:45] LABS: Troponin-I High Sensitivity < 3.5 ng/L (<3.5-17.0)
[2020-11-05 03:49] LABS: D Dimer 229 NG/ML
[2020-11-05] MEDS: Aspirin Enteric Coated 325 MG TABLET.DR PO (04:25)
[2020-11-05] MEDS: SUMAtriptan succinate 100 MG TABLET PO (04:25)
== END 2020-11-05 04:53 | disposition home or self-care (01) ==
PROVIDERS: Emergency Provider Emergency Medicine
DX: R07.89 Other chest pain (principal); G43.909 Migraine, unspecified, not intractable, without status migrainosus; I10 Essential (primary) hypertension; E78.5 Hyperlipidemia, unspecified; Z86.16 Personal history of COVID-19; Z79.02 Long term (current) use of antithrombotics/antiplatelets; Z79.899 Other long term (current) drug therapy
CPT/HCPCS: 36415; 71045; 80048; 84484; 85025; 85379; 93005; 99284

== ENCOUNTER → 2020-11-18 09:21 | Outpatient (REF) | payer MEDICAID, SELFPAY ==
--- NOTE | ~2020-11-18 | NM_ITS ---
Myocardial perfusion study Indication: CAD to evaluate for myocardial ischemia Technique: The patient was brought in for a Lexiscan perfusion study on 11/18/2020. Patient performed low-level exercise and was injected 0.4 mg of Lexiscan intravenously. Within a minute of injection, 30 mCi of sestamibi was given intravenously. Images were obtained using the SPECT gamma camera interlaced with the gating device. Images were obtained in supine position. Resting perfusion study was performed on 11/19/2020. Patient was administered 30 mCi of sestamibi intravenously at rest. Images were then obtained in supine position. Images obtained with and without CT attenuation. Total DLP 137 mGy-cm. Images were processed with the software and compared side to side in short axis, horizontal long axis and vertical long axis views. Findings: The stress perfusion study showed non attenuated images show minimal thinning of the basal septum of the LV myocardium. Remainder of the LV myocardium is normally perfused. Attenuation corrected images show minimally reduced uptake in the distal septum of the LV myocardium.. The gated study shows normal LV systolic function with calculated LVEF of 71%. LV cavity is normal in size. The gated study shows normal systolic wall thickening and contraction of segments. Resting study shows no change in perfusion stress perfusion study. Gating at rest reveals normal systolic wall motion with visually estimated ejection fraction at greater than 60 %. The findings are consistent with normal myocardial perfusion. NM/NM tong perf SPECT rest & str Impression: 1. Myocardial perfusion imaging study shows normal myocardial perfusion 2. Gated LVEF is 71% 3. Transient ischemic dilatation not present EKG is nondiagnostic for ischemia
--- NOTE | 2020-11-18 09:23 | CA_ITS ---
Acquisition Time: 2020-11-18 09:42:59 Total Exercise Time: 00:02:00 Test Indications: cp, cad Medications: see chart Protocol: LEXISCAN Max HR: 130 BPM 75% of Pred: 172 BPM Max BP: 130/082 mmHG Max Work Load: 1.0 METS Pharmacological stress test with Lexiscan injection, while sitting and kicking her legs, with shortness of breath following injection, no chest discomfort, without arrythmia, with normotensive response to injection, with nondiagnostic EKG for ischemia. In recovery she reported ongoing sob, lightheadedness that was treated with Aminophylline 75mg IVP to reverse Lexican with improvement in symptoms. Nuclear mages pending. Test reviewed with Dr Ashby. Referred By: Pamela Glover Overread By: PAMELA GLOVER
== END ==
LOC: HO.CARD 09:21
PROVIDERS: PCP Family Medicine; Visit Provider Nurse Practitioner Family
DX: R07.9 Chest pain, unspecified (principal); I25.10 Atherosclerotic heart disease of native coronary artery without angina pectoris
CPT/HCPCS: 78452; 93016; 93017; 93018; A9500; J0280; J2785

== ENCOUNTER → 2020-12-04 14:33 | Outpatient (BNVA) | payer MEDICAID, SELFPAY | PROVIDERS: PCP Family Medicine; Visit Provider Student in an Organized Health Care Education/Training Program | DX: M79.7 Fibromyalgia (principal) | CPT/HCPCS: 99212 ==

== ENCOUNTER 2020-12-11 12:55 | Outpatient (REF) | payer MEDICAID, SELFPAY ==
--- NOTE | ~2020-12-11 | MM_ITS ---
EXAMINATION: MM SCREENING DIGITAL BREAST TOMOSYNTHESIS, BILATERAL CLINICAL INFORMATION: Screening. Asymptomatic. The lifetime risk of breast cancer based on the Tyrer-Cuzick Model is 10%. COMPARISON: Mammography: 07/04/2018, 05/15/2017, 04/01/2016 TECHNIQUE: Digital breast tomosynthesis is performed in both the craniocaudal and mediolateral oblique views along with computer-aided detection (CAD). Synthesized 2D images are generated from the tomosynthesis. FINDINGS: The breasts are heterogeneously dense, which may obscure small masses (ACR BI-RADS breast composition Category c). There are no significant masses, abnormal calcifications, or other abnormalities. Parenchymal pattern is similar to prior studies. No significant changes. MM/MM tomosynthesis screening BI IMPRESSION: No mammographic evidence of malignancy. ASSESSMENT: BI-RADS 1: Negative RECOMMENDATION: Routine annual mammography screening. This patient's information was entered into a reminder system with a target due date for their next mammogram.
== END 2020-12-11 12:56 | disposition home or self-care (01) ==
LOC: HO.MAMMO 12:55
PROVIDERS: Visit Provider Family Medicine
DX: Z12.31 Encounter for screening mammogram for malignant neoplasm of breast (principal)
CPT/HCPCS: 77063; 77067

== ENCOUNTER → 2020-12-24 15:31 | Outpatient (BNVA) | payer MEDICAID, SELFPAY | PROVIDERS: PCP Family Medicine; Visit Provider Hospitalist | DX: J44.9 Chronic obstructive pulmonary disease, unspecified (principal); G47.33 Obstructive sleep apnea (adult) (pediatric); E78.5 Hyperlipidemia, unspecified; I10 Essential (primary) hypertension; E66.9 Obesity, unspecified; Z68.41 Body mass index [BMI] 40.0-44.9, adult; Z87.891 Personal history of nicotine dependence; Z98.890 Other specified postprocedural states; Z88.8 Allergy status to other drugs, medicaments and biological substances; Z99.89 Dependence on other enabling machines and devices; Z79.52 Long term (current) use of systemic steroids; Z79.899 Other long term (current) drug therapy | CPT/HCPCS: 99202 ==

== ENCOUNTER 2020-12-28 11:55 | Emergency (ER) | payer MEDICAID, SELFPAY ==
--- NOTE | ~2020-12-28 | XR_ITS ---
EXAMINATION: XR CHEST CLINICAL INFORMATION: Cough COMPARISON: Chest x-ray November 05, 2020 TECHNIQUE: 2 views of the chest were obtained. FINDINGS: Cardiac silhouette is normal in size. The lungs are well aerated. There is no lobar consolidation, pleural effusion or pneumothorax. Punctate granuloma projecting over the left lower lung is stable. Mild degenerative changes of the spine. XR/XR chest 2V IMPRESSION: Stable examination demonstrating no acute pulmonary pathology.
[2020-12-28 12:16] VITALS: PULSE 97; RESP 18; O2SAT 99; BMI 41.0
[2020-12-28 12:20] VITALS: TEMP 37.6
--- NOTE | 2020-12-28 12:20 | ED.URI ---
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 This is a 50-year-old female who is traveling to [place] today started to develop upper respiratory symptoms of nonproductive cough, fever, chills, sore throat. Patient received only 1 dose of COVID vaccination. No recent exposure to sick contacts, no recent travel. No chest pain, no shortness of breath. Related Data Home Medications Medication Instructions Recorded Confirmed albuterol sulfate 90 mcg/actuation 1 inh INHALATION Q4-6H PRN 03/26/20 12/24/20 breath activated powder inhaler amlodipine 5 mg tablet 5 mg PO DAILY 03/26/20 12/24/20 aspirin 81 mg tablet,delayed 81 mg PO DAILY 03/26/20 12/24/20 release cholecalciferol (vitamin D3) 25 25 mcg PO DAILY 03/26/20 12/24/20 mcg (1,000 unit) capsule docusate sodium 100 mg capsule 100 mg PO DAILY PRN 03/26/20 12/24/20 fluticasone propionate 110 1 puff INHALATION BID 03/26/20 12/24/20 mcg/actuation HFA aerosol inhaler gabapentin 400 mg capsule 400 mg PO DAILY 03/26/20 12/24/20 lorazepam 2 mg tablet 2 mg PO BEDTIME PRN 03/26/20 12/24/20 methocarbamol 500 mg tablet 500 mg PO QID PRN 03/26/20 12/24/20 pantoprazole 40 mg tablet,delayed 40 mg PO DAILY 03/26/20 12/24/20 release zolpidem 10 mg tablet 5 mg PO BEDTIME PRN 03/26/20 12/24/20 tramadol 50 mg PO BID PRN 05/20/20 12/24/20 rosuvastatin 40 mg tablet 40 mg PO DAILY 08/27/20 12/24/20 CPAP #1 ea 12/24/20 12/24/20 Previous Rx's Medication Instructions Recorded apixaban [Eliquis] See Rx Instructions .ROUTE 05/15/20 .COMPLEX #80 tab hydrocodone-homatropine 5 ml PO Q6H PRN #60 ml 06/28/20 ezetimibe 10 mg tablet 10 mg PO DAILY 90 Days #90 tab 08/24/20 prednisone 40 mg PO DAILY 4 Days #8 tab 10/05/20 evolocumab 140 mg/mL subcutaneous 140 mg SUBCUT Q2W 90 Days #7 ml 11/04/20 pen injector sumatriptan succinate 50 mg PO Q2-4H PRN #10 tab 11/05/20 fenofibrate 54 mg tablet 54 mg PO DAILY 90 Days #90 tab 11/09/20 fluticasone fur. 200 mcg-umeclid 1 inh INHALATION DAILY 30 Days #60 12/24/20 62.5 mcg-vilant 25 mcg ea inhalat.powder albuterol sulfate 1 inh INHALATION QID PRN #8.5 g 12/28/20 Allergies Allergy/AdvReac Type Severity Reaction Status Date / Time loratadine [From CLARITIN] Allergy Mild CHILLS AND Verified 12/24/20 15:37 DIFF BREATHING Review of Systems Review of Systems: All other systems are reviewed and are negative Constitutional: Reports as per HPI and Reports no additional constitutional complaints Eyes: Reports as per HPI and Reports no additional eye complaints Reports system reviewed and no additional complaints, except as documented Cardiovascular: Reports as per HPI and Reports no additional cardiovascular complaints Respiratory: Reports as per HPI and Reports no additional respiratory complaints Gastrointestinal: Reports as per HPI and Reports no additional gastrointestinal complaints Genitourinary: Reports no additional female genitourinary complaints Musculoskeletal: Reports no additional musculoskeletal complaints Skin/Breast: Reports system reviewed and no additional complaints, except as docu Psychiatric: Reports no additional psychiatric complaints Endocrine: Reports no additional endocrine complaints Hematologic/Lymphatic: Reports no additional hematologic/lymphatic complaints Allergic/Immunologic: Reports no additional allergic/immunologic complaints Reports system reviewed and no additional complaints, except as documented and Reports Abnormal speech present [facility] Past Medical History Medical History Acid reflux Asthma-COPD overlap syndrome Coronary artery disease Fatty liver Fibromyalgia Gall bladder polyp Hyperlipidemia Hypertension Obesity (BMI 30-39.9) NAM treated with BiPAP Sleep apnea Surgical History History of cardiac cath History of endometrial ablation Hx of tubal ligation Family History Family History Paternal Grandfather No problems noted. Father History of cancer Lung cancer Mother Heart disease Social History Social History Household Members: Significant Other and Children Housing: Apartment Do you presently have visiting nurse or other home services: No Alcohol intake: never Patient Tobacco Use Status: Former Tobacco user Tobacco use type: Cigarette Years Smoked: 5 years Second Hand Smoke Exposure: No Patient : No service: No Current occupational status: disabled Physical Exam Vital Signs: Vital Signs: Last Vital Signs Temp 99.6 F 12/28/20 12:20 Pulse 97 12/28/20 12:16 Resp 18 12/28/20 12:16 Pulse Ox 99 12/28/20 12:16 Body Mass Index 41.0 vital signs have been reviewed as appeared to be correct. Blood pressure normal. Heart rate normal. Respiration rate normal. Temperature normal. Oxygen saturation normal. Appearance: Alert. Oriented X3. No acute distress. Head: Normal external exam. Normocephalic. Atraumatic. No Leroy signs noted. No raccoon eyes noted Eyes: PERRLA. EOMI. Conjunctiva and sclera normal. Eyelids normal. ENT: TM's Normal. Pharynx normal. Uvula midline. Moist mucous membranes. No trismus noted. No drooling noted. No muffled voice noted. Neck: Normal inspection. Neck supple. FROM. No adenopathy. Thyroid Normal. No meningeal signs. No neck mass noted. CVS: Normal heart rate and rhythm. Heart sound normal. No murmurs noted. Pulses normal throughout. Respiratory: No respiratory distress. Painless inspiration. Breath sounds normal. No wheezes/rales/rhonchi noted. Chest nontender. No accessory muscle usage noted or decreased air movement noted. Abdomen: Soft and nontender. Bowel sounds normal in all 4 quadrants. No distention noted. No organomegaly noted. No visible injury noted. Back: No CVA tenderness. Full range of motion noted. Skin: Skin warm and dry. Normal skin color. Normal skin turgor. No rashes/lesions/lacerations noted. Extremities: No lower extremity edema. Extremities exhibit normal range of motion. Extremities nontender. Neuro: Oriented X 3. No motor deficit. No sensory deficit. Reflexes normal. Course Course Course Narrative: assessment and plan. 50-year-old female came in for acute asthma exacerbation /upper respiratory symptoms. Patient is traveling to [place] today concern of pneumonia versus COVID-19 infection. testing for COVID was negative and chest x-ray was unremarkable for pneumonia. Patient was instructed to use albuterol p.r.n. wheezing /coughing. MDM - URI/Sore Throat Lab Data Attestation: I reviewed the patient's lab results. Labs: Lab Results 12/28/20 Range/Units 12:20 COVID-19 (MIREYA) Negative (Negative) COVID-19 Clin Com See Note Imaging Data Chest x-ray: Radiologist's impression: No acute pathology. Discharge Plan Discharge Clinical Impression: Asthma Patient Disposition: Home, Self-Care Instructions: Bronchospasm (ED) Prescriptions: New albuterol sulfate 90 mcg/actuation HFA aerosol inhaler 1 inh inhalation QID PRN (Reason: shortness of breath or wheezing) Qty: 8.5 RF: 0 No Action ezetimibe 10 mg tablet 10 mg PO DAILY 90 Days Qty: 90 RF: 3 rosuvastatin [Crestor] 40 mg tablet 40 mg PO DAILY RF: 0 Repatha SureClick 140 mg/mL pen injector 140 mg subcut Q2W 90 Days Qty: 7 RF: 3 fenofibrate 54 mg tablet 54 mg PO DAILY 90 Days Qty: 90 RF: 1 Eliquis 5 mg tablet See Rx Instructions .ROUTE .COMPLEX Qty: 80 RF: 0 sumatriptan succinate 50 mg tablet 50 mg PO Q2-4H PRN (Reason: migraine headache) Qty: 10 RF: 0 tramadol 50 mg Tablet 50 mg PO BID PRN (Reason: Pain) RF: 0 hydrocodone-homatropine 5-1.5 mg/5 mL (5 mL) syrup 5 ml PO Q6H PRN (Reason: cough) Qty: 60 RF: 0 prednisone 20 mg tablet 40 mg PO DAILY 4 Days Qty: 8 RF: 0 albuterol sulfate 90 mcg/actuation aerosol powdr breath activated 1 inh inhalation Q4-6H PRN (Reason: Gastric Reflux) RF: 0 lorazepam [Ativan] 2 mg tablet 2 mg PO BEDTIME PRN (Reason: Anxiety) RF: 0 Flovent HFA 110 mcg/actuation HFA aerosol inhaler 1 puff inhalation BID RF: 0 zolpidem [Ambien] 10 mg tablet 5 mg PO BEDTIME PRN (Reason: Anxiety) RF: 0 aspirin [Adult Low Dose Aspirin] 81 mg tablet,delayed release (DR/EC) 81 mg PO DAILY RF: 0 cholecalciferol (vitamin D3) 25 mcg (1,000 unit) capsule 25 mcg PO DAILY RF: 0 methocarbamol 500 mg tablet 500 mg PO QID PRN (Reason: Muscle Spasm) RF: 0 gabapentin [Neurontin] 400 mg capsule 400 mg PO DAILY RF: 0 pantoprazole [Protonix] 40 mg tablet,delayed release (DR/EC) 40 mg PO DAILY RF: 0 docusate sodium [Colace] 100 mg capsule 100 mg PO DAILY PRN (Reason: Constipation) RF: 0 amlodipine [Norvasc] 5 mg tablet 5 mg PO DAILY RF: 0 (DME) CPAP Machine/Device Device See Rx Instructions .ROUTE .MEDSUPPLY Qty: 1 RF: 0 Trelegy Ellipta 200-62.5-25 mcg blister with device 1 inh inhalation DAILY 30 Days Qty: 60 RF: 12 Referrals: Ava Yap DO [Primary Care Provider] - 2 days
[2020-12-28 12:48] LABS: COVID-19 Test Negative (Negative)
== END 2020-12-28 13:30 | disposition home or self-care (01) ==
LOC: HO.ED 13:27
PROVIDERS: Emergency Provider Emergency Medicine; PCP Family Medicine
DX: J45.909 Unspecified asthma, uncomplicated (principal); I10 Essential (primary) hypertension; I25.10 Atherosclerotic heart disease of native coronary artery without angina pectoris; Z79.82 Long term (current) use of aspirin; Z79.899 Other long term (current) drug therapy; Z20.822 Contact with and (suspected) exposure to COVID-19
CPT/HCPCS: 36415; 71046; 87635; 99283

== ENCOUNTER → 2021-01-05 10:14 | Outpatient (BNVA) | payer MEDICAID, SELFPAY | PROVIDERS: Visit Provider Physician Assistant ==

== ENCOUNTER 2021-01-13 11:02 | Outpatient (REF) | payer MEDICAID, SELFPAY ==
--- NOTE | ~2021-01-13 | US_ITS ---
EXAMINATION: PELVIC ULTRASOUND CLINICAL INFORMATION: Follow-up ovarian cyst COMPARISON: Previous pelvic ultrasound and CT of the abdomen and pelvis September 2020 TECHNIQUE: Transabdominal and transvaginal pelvic ultrasound was performed. Transvaginal exam was performed for better visualization of the uterus and ovaries. FINDINGS: The uterus is anteverted and measures 10.8 x 6.1 x 2.7 cm in dimension. There is a 0.2 x 5.2 x 5.6 cm isoechoic to hyperechoic lesion in the right anterior uterine body and fundus suggestive of a fibroid. This does not appear appreciably changed from previous exam. No other focal uterine lesion is seen. The endometrium is not well visualized due to the fibroid. There are small nabothian cysts in the cervix.There is a 6.1 x 5.5 x 6.5 cm simple right adnexal cyst. The right ovary separate from the cyst is visualized. This measured 5.8 x 5.8 x 6.3 cm on previous ultrasound September 2020 and may be slightly increased in size. Left ovary is normal-appearing and measures 2.5 x 2.1 x 1.8 cm. There is no fluid in the pelvis. US/US pelvic and transvaginal IMPRESSION: 6.1 x 5.5 x 6.5 cm right adnexal cyst. This may be slightly increased in size from September 2020 exams. Large uterine fibroid not appreciably changed.
== END 2021-01-13 11:03 | disposition home or self-care (01) ==
LOC: HO.US 11:02
PROVIDERS: Visit Provider Obstetrics & Gynecology
DX: N83.299 Other ovarian cyst, unspecified side (principal)
CPT/HCPCS: 76830; 76856

== ENCOUNTER 2021-01-14 12:46 | Outpatient (REF) | payer MEDICAID, SELFPAY ==
--- NOTE | ~2021-01-14 | XR_ITS ---
EXAMINATION: XR CHEST CLINICAL INFORMATION: Chronic obstructive pulmonary disease COMPARISON: 12/28/2020 TECHNIQUE: 2 views of the chest were obtained. FINDINGS: Normal symmetric lung volumes. No parenchymal consolidation. No pleural effusion. No pneumothorax. Cardiomediastinal silhouette and pulmonary vascularity are within normal limits. Aorta is atherosclerotic. No acute osseous abnormalities. XR/XR chest 2V IMPRESSION: Unremarkable examination.
--- NOTE | ~2021-01-14 | XR_ITS ---
EXAMINATION: LEFT FOOT AND LEFT ANKLE. CLINICAL INFORMATION: Pain in left foot. COMPARISON: None TECHNIQUE: 3 views left foot and 2 views left ankle. FINDINGS: Left foot: There is no visible acute fracture, dislocation or subluxation. No bony erosive changes. The soft tissues are normal. Left ankle: There is a small retrocalcaneal and calcaneal enthesophytes. The ankle mortise and subtalar joints are normal. The soft tissues are normal. XR/XR ankle LT 2V IMPRESSION: Unremarkable left foot exam. Small calcaneal heel and retrocalcaneal enthesophytes.
--- NOTE | ~2021-01-14 | XR_ITS ---
EXAMINATION: LEFT FOOT AND LEFT ANKLE. CLINICAL INFORMATION: Pain in left foot. COMPARISON: None TECHNIQUE: 3 views left foot and 2 views left ankle. FINDINGS: Left foot: There is no visible acute fracture, dislocation or subluxation. No bony erosive changes. The soft tissues are normal. Left ankle: There is a small retrocalcaneal and calcaneal enthesophytes. The ankle mortise and subtalar joints are normal. The soft tissues are normal. XR/XR foot LT 2V IMPRESSION: Unremarkable left foot exam. Small calcaneal heel and retrocalcaneal enthesophytes.
--- NOTE | 2021-01-14 17:37 | PFT_ITS ---
Forced vital capacity moderately reduced. FEV1 is also moderately reduced but FEV1/FVC ratio is normal. [id number] is normal. MVV slightly reduced. Postbronchodilator therapy, there is no significant change. Total lung capacity and residual volume are both moderately reduced. Diffusion capacity normal. CONCLUSION: Restrictive pulmonary disorder, moderately severe. No obstructive airway disorder. MD CLARA Garcia/NICHOLL / [id number]
== END 2021-01-14 12:47 | disposition home or self-care (01) ==
LOC: HO.RESP 12:46
PROVIDERS: Internal Medicine Pulmonary Disease; PCP Family Medicine; Referring Provider Registered Nurse; Visit Provider Hospitalist
DX: J44.9 Chronic obstructive pulmonary disease, unspecified (principal); M25.572 Pain in left ankle and joints of left foot; M79.672 Pain in left foot
CPT/HCPCS: 36415; 71046; 73600; 73620; 94060; 94727; 94729

== ENCOUNTER → 2021-01-21 14:56 | Outpatient (BNVA) | payer MEDICAID, SELFPAY | PROVIDERS: PCP Family Medicine; Referring Provider Family Medicine; Visit Provider Internal Medicine Cardiovascular Disease | DX: R00.2 Palpitations (principal); I10 Essential (primary) hypertension | CPT/HCPCS: 93005; 99212 ==

== ENCOUNTER → 2021-01-26 10:34 | Outpatient (REF) | payer MEDICAID, SELFPAY ==
--- NOTE | 2021-01-26 | HM_ITS ---
Total monitoring period 3 days and 3 hours. Underlying rhythm is sinus with an average rate of 88/Min. Maximum 152/Min. Minimum 55/Min. About 22.5% of the time, rate greater than 100. No atrial fibrillation/flutter. No AV block. No pauses. No episodes of VT. Seven supraventricular episodes. Longest episode 12 beats. Total PAC burden 0.06%. Total PVC burden less than 0.01%. No patient events. MTDD
== END ==
LOC: HO.CARD 10:34
PROVIDERS: PCP Family Medicine; Visit Provider Internal Medicine Cardiovascular Disease
DX: R00.2 Palpitations (principal)
CPT/HCPCS: 93242

== ENCOUNTER → 2021-01-27 10:48 | Outpatient (BNVA) | payer MEDICAID, SELFPAY | PROVIDERS: PCP Family Medicine; Visit Provider Obstetrics & Gynecology ==

== ENCOUNTER 2021-02-11 10:16 | Outpatient (REF) | payer MEDICAID, SELFPAY ==
--- NOTE | ~2021-02-11 | XR_ITS ---
EXAMINATION: XR CERVICAL SPINE CLINICAL INFORMATION: Anesthesia of skin. COMPARISON: 02/26/2018 TECHNIQUE: 4 views of the cervical spine were obtained. FINDINGS: No abnormal prevertebral soft tissue swelling is seen. There is limited visualization of C7 on lateral and swimmer's views. No acute fracture identified. No significant disc space narrowing is seen. There appears to be some facet degenerative spurring seen at the C4-C5 and C5-C6 levels on the right and at the C5-C6 level on the left. XR/XR cervical spine 4V IMPRESSION: No significant abnormality of the cervical spine appreciated other than for some facet arthropathy as described.
== END 2021-02-11 10:17 | disposition home or self-care (01) ==
LOC: HO.XRAY 10:16
PROVIDERS: Absent Provider Emergency Medicine; PCP Family Medicine; Referring Provider Family Medicine; Visit Provider Hospitalist
DX: Z01.811 Encounter for preprocedural respiratory examination (principal); R20.0 Anesthesia of skin; G47.33 Obstructive sleep apnea (adult) (pediatric); J44.9 Chronic obstructive pulmonary disease, unspecified; J98.4 Other disorders of lung; Z87.891 Personal history of nicotine dependence
CPT/HCPCS: 72050; 99212

== ENCOUNTER 2021-02-13 16:59 | Emergency (ER) | payer MEDICAID, SELFPAY ==
--- NOTE | ~2021-02-13 | CT_ITS ---
EXAMINATION: CT HEAD WITHOUT CONTRAST CLINICAL INFORMATION: Right-sided numbness. COMPARISON: 02/26/2018. TECHNIQUE: Contiguous axial imaging was performed from the skull base to vertex without intravenous administration of contrast. This CT examination was performed using dose optimization techniques as appropriate, variously including the following: *Automated exposure control *Adjustment of mA and/or kV according to patient size (this includes techniques or standardized protocols for targeted exams where dose is matched to indication/reason for exam; i.e. extremities or head) *Use of iterative reconstruction technique DLP: 861 mGy-cm FINDINGS: There is no evidence of acute intracranial hemorrhage or territorial infarction. No abnormal mass effect or midline shift is seen. Harding to white matter differentiation is well preserved. No extra-axial fluid collections are identified. The ventricles are normal in size. There is no abnormal attenuation within the brain parenchyma. The osseous structures and soft tissues are normal. The mastoid air cells and visualized portions of the paranasal sinuses are well aerated. CT/CT head/brain wo con IMPRESSION: No acute intracranial pathology. No significant change since prior study dated 02/26/2018.
[2021-02-13 17:09] VITALS: BP 153/93; PULSE 88; RESP 16; TEMP 36.2; O2SAT 97; BMI 41.3
--- NOTE | 2021-02-13 18:32 | ED.GENADULT ---
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 Pain is worse when she moves her head and neck, nothing makes the pain better. Pain is constant. Patient appear anxious and concern of stroke. Patient was evaluated by her PCP 2 days ago will order cervical spinal x-ray. Related Data Home Medications Medication Instructions Recorded Confirmed albuterol sulfate 90 mcg/actuation 1 inh INHALATION Q4-6H PRN 03/26/20 01/21/21 breath activated powder inhaler aspirin 81 mg tablet,delayed 81 mg PO DAILY 03/26/20 01/21/21 release (Adult Low Dose Aspirin) cholecalciferol (vitamin D3) 25 25 mcg PO DAILY 03/26/20 01/21/21 mcg (1,000 unit) capsule docusate sodium 100 mg capsule 100 mg PO DAILY PRN 03/26/20 01/21/21 (Colace) fluticasone propionate 110 1 puff INHALATION BID 03/26/20 01/21/21 mcg/actuation HFA aerosol inhaler (Flovent HFA) gabapentin 400 mg capsule 400 mg PO DAILY 03/26/20 01/21/21 (Neurontin) lorazepam 2 mg tablet (Ativan) 2 mg PO BEDTIME PRN 03/26/20 01/21/21 methocarbamol 500 mg tablet 500 mg PO QID PRN 03/26/20 01/21/21 pantoprazole 40 mg tablet,delayed 40 mg PO DAILY 03/26/20 01/21/21 release (Protonix) zolpidem 10 mg tablet (Ambien) 5 mg PO BEDTIME PRN 03/26/20 01/21/21 tramadol 50 mg tablet 50 mg PO BID PRN 05/20/20 01/21/21 rosuvastatin 40 mg tablet (Crestor) 40 mg PO DAILY 08/27/20 01/21/21 CPAP (CPAP Machine/Device) #1 ea 12/24/20 01/21/21 Previous Rx's Medication Instructions Recorded hydrocodone-homatropine 5 mg-1.5 5 ml PO Q6H PRN #60 ml 06/28/20 mg/5 mL (5 mL) oral syrup ezetimibe 10 mg tablet 10 mg PO DAILY 90 Days #90 tab 08/24/20 prednisone 20 mg tablet 40 mg PO DAILY 4 Days #8 tab 10/05/20 sumatriptan succinate 50 mg tablet 50 mg PO Q2-4H PRN #10 tab 11/05/20 fenofibrate 54 mg tablet 54 mg PO DAILY 90 Days #90 tab 11/09/20 fluticasone fur. 200 mcg-umeclid 1 inh INHALATION DAILY 30 Days #60 12/24/20 62.5 mcg-vilant 25 mcg ea inhalat.powder (Trelegy Ellipta) albuterol sulfate 90 mcg/actuation 1 inh INHALATION QID PRN #8.5 g 12/28/20 aerosol inhaler amlodipine 10 mg tablet 10 mg PO DAILY #60 tab 01/21/21 evolocumab 140 mg/mL subcutaneous 140 mg SUBCUT Q2W 90 Days #7 ml 02/11/21 pen injector (Repatha SureClick) fluticasone fur. 200 mcg-umeclid 1 inh INHALATION DAILY 30 Days #60 02/11/21 62.5 mcg-vilant 25 mcg ea inhalat.powder (Trelegy Ellipta) Allergies Allergy/AdvReac Type Severity Reaction Status Date / Time loratadine [From CLARITIN] Allergy Mild CHILLS AND Verified 02/11/21 10:28 DIFF BREATHING Review of Systems Review of Systems: All other systems are reviewed and are negative Constitutional: Reports as per HPI and Reports no additional constitutional complaints Eyes: Reports as per HPI and Reports no additional eye complaints Reports system reviewed and no additional complaints, except as documented Cardiovascular: Reports as per HPI and Reports no additional cardiovascular complaints Respiratory: Reports as per HPI and Reports no additional respiratory complaints Gastrointestinal: Reports as per HPI and Reports no additional gastrointestinal complaints Genitourinary: Reports no additional female genitourinary complaints Musculoskeletal: Reports no additional musculoskeletal complaints Skin/Breast: Reports system reviewed and no additional complaints, except as docu Psychiatric: Reports no additional psychiatric complaints Endocrine: Reports no additional endocrine complaints Hematologic/Lymphatic: Reports no additional hematologic/lymphatic complaints Allergic/Immunologic: Reports no additional allergic/immunologic complaints Reports system reviewed and no additional complaints, except as documented and Reports Abnormal speech present [facility] Past Medical History Medical History Acid reflux Asthma-COPD overlap syndrome Chronic restrictive lung disease Coronary artery disease Fatty liver Fibromyalgia Gall bladder polyp Hyperlipidemia Hypertension Obesity (BMI 30-39.9) NAM treated with BiPAP Pre-op chest exam Sleep apnea Surgical History History of cardiac cath History of endometrial ablation Hx of tubal ligation Family History Family History Paternal Grandfather No problems noted. Father History of cancer Lung cancer Mother Heart disease Social History Social History Household Members: Significant Other and Children Housing: Apartment Do you presently have visiting nurse or other home services: No Alcohol intake: never Patient Tobacco Use Status: Former Tobacco user Tobacco use type: Cigarette Years Smoked: 5 years Second Hand Smoke Exposure: No Advance Directives: No Advance Directives Information Provided: No service: No Current occupational status: disabled Physical Exam Vital Signs: Vital Signs: Last Vital Signs Temp 97.1 F 02/13/21 17:09 Pulse 88 02/13/21 17:09 Resp 16 02/13/21 17:09 BP 153/93 H 02/13/21 17:09 Pulse Ox 97 02/13/21 17:09 Body Mass Index 41.3 Vital signs have been reviewed as appeared to be correct. Blood pressure elevated. Heart rate normal. Respiration rate normal. Temperature normal. Oxygen saturation normal. Appearance: Alert. Oriented X3. No acute distress. Head: Normal external exam. Normocephalic. Atraumatic. No Leroy signs noted. No raccoon eyes noted Eyes: PERRLA. EOMI. Conjunctiva and sclera normal. Eyelids normal. ENT: TM's Normal. Pharynx normal. Uvula midline. Moist mucous membranes. No trismus noted. No drooling noted. No muffled voice noted. Neck: Normal inspection. No step-off, no deformity, mild tenderness at the midline and tenderness of her upper right scapula, increased pain when she turned to the left side pain radiates down to the left scapular/left arm area. CVS: Normal heart rate and rhythm. Heart sound normal. No murmurs noted. Pulses normal throughout. Respiratory: No respiratory distress. Painless inspiration. Breath sounds normal. No wheezes/rales/rhonchi noted. Chest nontender. No accessory muscle usage noted or decreased air movement noted. Abdomen: Soft and nontender. Bowel sounds normal in all 4 quadrants. No distention noted. No organomegaly noted. No visible injury noted. Back: No CVA tenderness. Full range of motion noted. Skin: Skin warm and dry. Normal skin color. Normal skin turgor. No rashes/lesions/lacerations noted. Extremities: No lower extremity edema. Extremities exhibit normal range of motion. Extremities nontender. Neuro: Oriented X 3. Cranial nerve exam: II-XII are grossly intact No motor deficit. No sensory deficit. Reflexes normal. Course Course Course Narrative: Assessment and plan. 50-year-old female came in with a right-sided numbness and weakness, physical exam is consistent with a right cervical radiculopathy, patient's symptoms significantly improved after pain medication. Neuro exam is intact no weakness. Medical Decision Making Lab Data Lab results reviewed: Yes I reviewed the patient's lab results. Result diagrams: 02/13/21 19:08 02/13/21 19:08 Labs: Lab Results 02/13/21 02/13/21 Range/Units 19:08 19:08 WBC 6.4 (4.8-10.8) X10*3/uL RBC 4.60 (4.20-5.50) X10*6/uL Hgb 14.1 (12.0-16.0) g/dl Hct 41.5 (37-47) % MCV 90.2 (80-98) fL MCH 30.7 (27.0-33.0) pg MCHC 34.0 (31.0-35.0) g/dl RDW 13.2 (11.0-16.0) % Plt Count 180 (160-400) X10*3/uL MPV 11.4 (9.4-12.3) fL Immature Gran % (Auto) 0.5 H (0.0-0.4) % Neut % (Auto) 46.9 (45-73) % Lymph % (Auto) 40.8 H (20-40) % [place] % (Auto) 10.7 (2-11) % Eos % (Auto) 0.8 (0-4) % Baso % (Auto) 0.3 (0-2) % Lymph # (Auto) 2.6 (1.2-4.9) X10*3/uL [place] # (Auto) 0.7 (0.1-1.2) X10*3/uL Eos # (Auto) 0.1 (0.0-0.4) X10*3/uL Baso # (Auto) 0.0 (0.0-0.2) X10*3/uL Abs Immat Gran (auto) 0.03 (0.00-0.03) X10*3/uL Absolute Neuts (auto) 3.0 (2.0-8.3) X10*3/uL Absolute Nucleated RBC 0.000 (0.0-0.012) X10*3/uL Nucleated RBC % (auto) 0.0 (0.0-0.2) /100WBC Smear Tech's Comments VERIFIED Sodium 140 (135-145) mmol/L Potassium 4.6 (3.3-5.1) mmol/L Chloride 106 (96-108) mmol/L Carbon Dioxide 20 L (22-29) mmol/L Anion Gap 19 (12-20) BUN 17 H (9-16) mg/dL Creatinine 0.83 (0.5-1.4) mg/dL Estim Creat Clear Calc 85.1 Estimated GFR > 60 Random Glucose 92 (60-115) mg/dL Calcium 10.5 H (8.4-10.2) mg/dL Imaging Data CT scan - head: Radiologist's impression: No acute intracranial pathology. Discharge Plan Discharge Clinical Impression: Cervical radiculopathy Patient Disposition: Home, Self-Care Instructions: Cervical Radiculopathy (ED) Prescriptions: No Action ezetimibe 10 mg tablet 10 mg PO DAILY 90 Days Qty: 90 RF: 3 rosuvastatin [Crestor] 40 mg tablet 40 mg PO DAILY RF: 0 fenofibrate 54 mg tablet 54 mg PO DAILY 90 Days Qty: 90 RF: 1 Repatha SureClick 140 mg/mL pen injector 140 mg subcut Q2W 90 Days Qty: 7 RF: 3 sumatriptan succinate 50 mg tablet 50 mg PO Q2-4H PRN (Reason: migraine headache) Qty: 10 RF: 0 tramadol 50 mg Tablet 50 mg PO BID PRN (Reason: Pain) RF: 0 hydrocodone-homatropine 5-1.5 mg/5 mL (5 mL) syrup 5 ml PO Q6H PRN (Reason: cough) Qty: 60 RF: 0 prednisone 20 mg tablet 40 mg PO DAILY 4 Days Qty: 8 RF: 0 albuterol sulfate 90 mcg/actuation HFA aerosol inhaler 1 inh inhalation QID PRN (Reason: shortness of breath or wheezing) Qty: 8.5 RF: 0 amlodipine 10 mg tablet 10 mg PO DAILY Qty: 60 RF: 3 albuterol sulfate 90 mcg/actuation aerosol powdr breath activated 1 inh inhalation Q4-6H PRN (Reason: Gastric Reflux) RF: 0 lorazepam [Ativan] 2 mg tablet 2 mg PO BEDTIME PRN (Reason: Anxiety) RF: 0 Flovent HFA 110 mcg/actuation HFA aerosol inhaler 1 puff inhalation BID RF: 0 zolpidem [Ambien] 10 mg tablet 5 mg PO BEDTIME PRN (Reason: Anxiety) RF: 0 aspirin [Adult Low Dose Aspirin] 81 mg tablet,delayed release (DR/EC) 81 mg PO DAILY RF: 0 cholecalciferol (vitamin D3) 25 mcg (1,000 unit) capsule 25 mcg PO DAILY RF: 0 methocarbamol 500 mg tablet 500 mg PO QID PRN (Reason: Muscle Spasm) RF: 0 gabapentin [Neurontin] 400 mg capsule 400 mg PO DAILY RF: 0 pantoprazole [Protonix] 40 mg tablet,delayed release (DR/EC) 40 mg PO DAILY RF: 0 docusate sodium [Colace] 100 mg capsule 100 mg PO DAILY PRN (Reason: Constipation) RF: 0 (DME) CPAP Machine/Device Device See Rx Instructions .ROUTE .MEDSUPPLY Qty: 1 RF: 0 Trelegy Ellipta 200-62.5-25 mcg blister with device 1 inh inhalation DAILY 30 Days Qty: 60 RF: 12 Trelegy Ellipta 200-62.5-25 mcg blister with device 1 inh inhalation DAILY 30 Days Qty: 60 RF: 12 Referrals: Ava Yap DO [Primary Care Provider] - 2 days
[2021-02-13] MEDS: oxyCODONE HCl Immed Release 5 MG TABLET PO (18:38)
[2021-02-13 19:18] LABS: Basophils Percent Auto 0.3 % (0-2); Hematocrit 41.5 % (37-47); Hemoglobin 14.1 g/dl (12.0-16.0); Imm Gran Abs Auto 0.03 X10*3/uL (0.00-0.03); Imm Gran Pct Auto 0.5 % (0.0-0.4); Lymphocytes Percent Auto 40.8 % (20-40); MANUAL DIFF FLAG SCAN; Mean Corpuscular Hemoglobin 30.7 pg (27.0-33.0); Mean Corpuscular Volume 90.2 fL (80-98); PLT CLUMP 1; SCAN SMEAR FLAG 1
[2021-02-13 19:20] LABS: Eosinophils Absolute Auto 0.1 X10*3/uL (0.0-0.4); Eosinophils Percent Auto 0.8 % (0-4); Lymphocytes Absolute Auto 2.6 X10*3/uL (1.2-4.9); Mean Platelet Volume 11.4 fL (9.4-12.3); Monocytes Absolute Auto 0.7 X10*3/uL (0.1-1.2); Monocytes Percent Auto 10.7 % (2-11); Neutrophils Percent Auto 46.9 % (45-73); Red Cell Distribution Width 13.2 % (11.0-16.0); White Blood Count 6.4 X10*3/uL (4.8-10.8)
[2021-02-13 19:37] LABS: Platelet Count 180 X10*3/uL (160-400)
[2021-02-13 19:38] LABS: SLIDE REVIEW VERIFIED
[2021-02-13 19:42] LABS: Anion Gap 19 (12-20); Blood Urea Nitrogen 17 mg/dL (9-16); Calcium 10.5 mg/dL (8.4-10.2); Carbon Dioxide 20 mmol/L (22-29); Chloride 106 mmol/L (96-108); Creatinine Clr Calc Pharmacy 85.1; Estimated Glomerular Filt Rate > 60; Glucose Random 92 mg/dL (60-115); Potassium 4.6 mmol/L (3.3-5.1); Sodium 140 mmol/L (135-145)
[2021-02-13 20:19] VITALS: BP 115/61; PULSE 84; RESP 16; O2SAT 97
== END 2021-02-13 20:24 | disposition home or self-care (01) ==
PROVIDERS: Emergency Provider Emergency Medicine; PCP Family Medicine
DX: M54.12 Radiculopathy, cervical region (principal); R51.9 Headache, unspecified; I10 Essential (primary) hypertension; E78.5 Hyperlipidemia, unspecified; Z79.82 Long term (current) use of aspirin; Z79.899 Other long term (current) drug therapy; Z79.02 Long term (current) use of antithrombotics/antiplatelets
CPT/HCPCS: 36415; 70450; 80048; 85025; 99284

== ENCOUNTER 2021-02-22 13:19 | Outpatient (REF) | payer MEDICAID, SELFPAY ==
--- NOTE | ~2021-02-22 | XR_ITS ---
EXAMINATION: XR CERVICAL SPINE CLINICAL INFORMATION: Paresthesia. COMPARISON: Cervical spine radiographs dated 02/11/2021. TECHNIQUE: AP, lateral, open-mouth, and swimmer's views of the cervical spine. FINDINGS: Straightening of the normal cervical lordosis, which may be positional or related to muscular spasm. No acute fracture or subluxation. Normal atlantoaxial alignment. No loss of vertebral body height. No loss of intervertebral disc height. Mild multilevel bilateral facet arthropathy. Unremarkable prevertebral soft tissues. XR/XR cervical spine 3V IMPRESSION: 1. Straightening of the normal cervical lordosis, which may be positional or related to muscular spasm. 2. Multilevel bilateral facet arthropathy.
== END 2021-02-22 13:20 | disposition home or self-care (01) ==
LOC: HO.XRAY 13:19
PROVIDERS: PCP Family Medicine; Visit Provider Family Medicine
DX: R20.2 Paresthesia of skin (principal)
CPT/HCPCS: 72040

== ENCOUNTER 2021-03-25 13:39 | Outpatient (REF) | payer MEDICAID, SELFPAY ==
--- NOTE | ~2021-03-25 | XR_ITS ---
EXAMINATION: XR KNEE, RIGHT XR KNEE, LEFT CLINICAL INFORMATION: Pain. COMPARISON: Bilateral knee radiographs dated 05/29/2020. TECHNIQUE: AP, tunnel, lateral, and sunrise views of the right and left knee. FINDINGS: Right Knee: Mild medial compartment joint space narrowing. Tiny medial and patellofemoral compartment marginal osteophytes. No osseous erosion. No fracture or dislocation. No significant joint effusion. No abnormal soft tissue calcification. Left Knee: Mild medial compartment joint space narrowing. Mild lateral patellofemoral compartment joint space narrowing. Tiny tricompartmental marginal osteophytes. No osseous erosion. No fracture or dislocation. No significant joint effusion. No abnormal soft tissue calcification. XR/XR knee RT 4V IMPRESSION: RIGHT KNEE: Mild medial and patellofemoral compartment osteoarthritis, unchanged. LEFT KNEE: Mild tricompartmental osteoarthritis, unchanged.
--- NOTE | ~2021-03-25 | XR_ITS ---
EXAMINATION: XR KNEE, RIGHT XR KNEE, LEFT CLINICAL INFORMATION: Pain. COMPARISON: Bilateral knee radiographs dated 05/29/2020. TECHNIQUE: AP, tunnel, lateral, and sunrise views of the right and left knee. FINDINGS: Right Knee: Mild medial compartment joint space narrowing. Tiny medial and patellofemoral compartment marginal osteophytes. No osseous erosion. No fracture or dislocation. No significant joint effusion. No abnormal soft tissue calcification. Left Knee: Mild medial compartment joint space narrowing. Mild lateral patellofemoral compartment joint space narrowing. Tiny tricompartmental marginal osteophytes. No osseous erosion. No fracture or dislocation. No significant joint effusion. No abnormal soft tissue calcification. XR/XR knee LT 4V IMPRESSION: RIGHT KNEE: Mild medial and patellofemoral compartment osteoarthritis, unchanged. LEFT KNEE: Mild tricompartmental osteoarthritis, unchanged.
== END 2021-03-25 13:40 | disposition home or self-care (01) ==
LOC: HO.XRAY 13:39
PROVIDERS: PCP Family Medicine; Visit Provider Family Medicine
DX: M25.561 Pain in right knee (principal); M25.562 Pain in left knee
CPT/HCPCS: 73564

== ENCOUNTER 2021-04-07 12:46 | Outpatient (REF) | payer MEDICAID, SELFPAY ==
--- NOTE | ~2021-04-07 | US_ITS ---
EXAMINATION: US EXTRACRANIAL CAROTID DUPLEX, BILATERAL CLINICAL INFORMATION: Right-sided facial numbness COMPARISON: None TECHNIQUE: Real-time ultrasound and Doppler techniques (integrating B-mode 2-D vascular images, Doppler spectral analysis and color-flow Doppler imaging) were utilized to interrogate the extracranial carotid arteries, the vertebral arteries and proximal subclavian arteries bilaterally. The degree of stenosis is determined by criteria similar to NASCET. FINDINGS: Right Side: 1. There is calcified atherosclerotic plaque seen in the bifurcation/proximal ICA region. 2. The common carotid artery PSV proximally is 132 cm/s and distally 137 cm/s. 3. The proximal internal carotid artery velocities are 108 cm/s systolic and 32.2 cm/s diastolic. 4. The proximal external carotid artery PSV is 123 cm/s. 5. The vertebral artery shows antegrade flow. 6. The subclavian artery waveforms are normal. Left Side: 1. There is calcified atherosclerotic plaque seen in the bifurcation/proximal ICA region. 2. The common carotid artery PSV proximally is 145 cm/s and distally 138 cm/s. 3. The proximal internal carotid artery velocities are 92 cm/s systolic and 27 cm/s diastolic. 4. The proximal external carotid artery PSV is 123 cm/s. 5. The vertebral artery shows antegrade flow. 6. The subclavian artery waveforms are normal. US/US carotid duplex BI IMPRESSION: 1. RIGHT: Minimal, non-hemodynamically significant stenosis of the proximal right internal carotid artery corresponding to a 0-49% stenosis by velocity criteria. 2. LEFT: Minimal, non-hemodynamically significant stenosis of the proximal left internal carotid artery corresponding to a 0-49% stenosis by velocity criteria.
== END 2021-04-07 12:47 | disposition home or self-care (01) ==
LOC: HO.HMGCX 12:46
PROVIDERS: PCP Family Medicine; Visit Provider Emergency Medicine
DX: I10 Essential (primary) hypertension (principal); I25.10 Atherosclerotic heart disease of native coronary artery without angina pectoris; R20.2 Paresthesia of skin
CPT/HCPCS: 93880

== ENCOUNTER 2021-04-09 13:09 | Outpatient (REF) | payer MEDICAID, SELFPAY ==
--- NOTE | ~2021-04-09 | CT_ITS ---
EXAMINATION: CT CHEST WITHOUT CONTRAST CLINICAL INFORMATION: Pulmonary nodule. COMPARISON: CT chest 07/29/2020 TECHNIQUE: Multidetector volumetric CT imaging of the chest was done. Axial MIP volume rendering provided. Sagittal and coronal reformatted images were obtained. This CT examination was performed using dose optimization techniques as appropriate, variously including the following: *Automated exposure control *Adjustment of mA and/or kV according to patient size (this includes techniques or standardized protocols for targeted exams where dose is matched to indication/reason for exam; i.e. extremities or head) *Use of iterative reconstruction technique DLP: 338 mGy-cm FINDINGS: TECHNICAL PROGRAM MANAGER: Unremarkable. LUNGS: The lungs are well expanded and clear of acute pneumonic consolidation. There is a 2 mm calcified nodules in right lung apex image 79/10, left upper lobe axial image 128/10, 3 mm nodule left upper lobe anterior segment image 179/10, 2 mm nodule left parahilar region axial image 186/10, right middle lobe 3 mm nodule image 189/10, 2 mm nodules in right middle lobe axial image 223/10, 239/10 a larger calcified 4 mm nodule left lower lobe axial image 245/10. There are several additional calcified nodules in the left lower lobe, right middle lobe and lingula in the range of 3 to 4 mm. No noncalcified nodule is visualized. MEDIASTINUM: The thyroid lobes are symmetric and normal. The central trachea and the bronchi are widely patent. Heart size and the great vessels are normal caliber. There are coronary artery calcifications present. There is no pericardial effusion. PLEURA: There is no pleural effusion. No pleural mass or thickening. AXILLA: No lymphadenopathy. UPPER ABDOMEN: The visualized liver, spleen, pancreas and bilateral adrenal glands are unremarkable. OSSEOUS STRUCTURES: There are no lytic or sclerotic process seen. There are degenerative disc changes and ventral spondylosis mid and lower dorsal spine. CT/CT chest wo con IMPRESSION: 1. Well-expanded lungs with multiple calcified granulomata, stable. No noncalcified nodules seen. 2. No major change compared to previous study 07/29/2020.
== END 2021-04-09 13:10 | disposition home or self-care (01) ==
LOC: HO.CT 13:09
PROVIDERS: Visit Provider Family Medicine
DX: R91.1 Solitary pulmonary nodule (principal)
CPT/HCPCS: 71250

== ENCOUNTER 2021-04-15 14:18 | Outpatient (REF) | payer MEDICAID, SELFPAY ==
[2021-04-15 16:10] LABS: TSH reflex Free T4 1.71 uIU/mL (0.32-4.0)
== END 2021-04-15 14:19 | disposition home or self-care (01) ==
LOC: HO.LAB 14:18
PROVIDERS: PCP Family Medicine; Referring Provider Family Medicine; Visit Provider Internal Medicine Cardiovascular Disease
DX: R00.2 Palpitations (principal)
CPT/HCPCS: 36415; 84443; 99212

== ENCOUNTER 2021-04-19 13:10 | Outpatient (REF) | payer MEDICAID, SELFPAY ==
--- NOTE | ~2021-04-19 | US_ITS ---
EXAMINATION: ANKLE-BRACHIAL INDICES PULSE VOLUME RECORDINGS BILATERAL ANKLES CLINICAL INFORMATION: Leg pain COMPARISON: None TECHNIQUE: Ankle-brachial indices and pulse volume recordings were obtained at the ankle. FINDINGS: Right lower extremity: PT: 0.98 DP 0.86 PVR: Mildly abnormal. Left lower extremity: PT: 1.01 DP: 0.98 PVR: Normal. US/US ALEX complete IMPRESSION: Mild peripheral arterial disease in the right lower extremity as evidenced by a mildly abnormal PVR at the ankle and a dorsalis pedis segmental index was 0.86. The PT segmental index is normal indicating good collateralization. No evidence of peripheral arterial disease on the left.
== END 2021-04-19 13:11 | disposition home or self-care (01) ==
LOC: HO.US 13:10
PROVIDERS: Visit Provider Family Medicine
DX: M79.606 Pain in leg, unspecified (principal)
CPT/HCPCS: 93923

== ENCOUNTER 2021-04-28 08:42 | Outpatient (REF) | payer MEDICAID, SELFPAY ==
--- NOTE | 2021-04-28 08:45 | EMG_ITS ---
This is a 50-year-old woman with a 2-month history of right upper extremity pain and numbness. Her neurological examination is normal. No Tinel or Phalen sign. IMPRESSION: Rule out carpal tunnel syndrome. Nerve conduction EMG study: Impression, mild carpal tunnel syndrome on the right. Normal EMG of the right C6-T1 innervated muscles. MD DOMINIK Lindsey/REBECCA / [id number]
== END 2021-04-28 08:43 | disposition home or self-care (01) ==
LOC: HO.NEURO 08:42
PROVIDERS: Visit Provider Family Medicine
DX: R20.2 Paresthesia of skin (principal)
CPT/HCPCS: 95885; 95910

== ENCOUNTER → 2021-06-08 12:46 | Outpatient (REF) | payer MEDICAID, SELFPAY ==
--- NOTE | 2021-06-08 12:57 | ECG_ITS ---
Test Reason : preproc exam Blood Pressure : / mmHG Vent. Rate : 094 BPM Atrial Rate : 094 BPM P-R Int : 128 ms QRS Dur : 072 ms QT Int : 348 ms P-R-T Axes : 069 -04 084 degrees QTc Int : 435 ms Normal sinus rhythm Inferior infarct (cited on or before 05-NOV-2020) Abnormal ECG When compared with ECG of 05-NOV-2020 00:04, QRS axis Shifted right Questionable change in initial forces of Inferior leads Referred By: Ava Yap Electronically Signed By:SHELLY ROSA MD
[2021-06-08 13:28] LABS: Hematocrit 41.3 % (37.0-47.0); Hemoglobin 13.7 g/dl (12.0-16.0); Mean Corpuscular HGB Conc 33.2 g/dl (31.0-35.0); Mean Corpuscular Hemoglobin 30.8 pg (27.0-33.0); Mean Corpuscular Volume 92.8 fL (80.0-98.0); Platelet Count 248 X10*3/uL (160-400); Red Blood Count 4.45 X10*6/uL (4.20-5.50); White Blood Count 6.9 X10*3/uL (4.8-10.8)
[2021-06-08 13:37] LABS: Prothrombin Time 11.1 SEC (9.9-13.0)
[2021-06-08 13:44] LABS: Anion Gap 13 (12-20); Blood Urea Nitrogen 13 mg/dL (9-16); Calcium 9.8 mg/dL (8.4-10.2); Carbon Dioxide 23 mmol/L (22-29); Chloride 107 mmol/L (96-108); Estimated Glomerular Filt Rate > 60; Glucose Random 108 mg/dL (60-115); Sodium 139 mmol/L (135-145)
== END ==
LOC: HO.CARD 12:46
PROVIDERS: Visit Provider Family Medicine
DX: Z01.818 Encounter for other preprocedural examination (principal); M79.606 Pain in leg, unspecified
CPT/HCPCS: 36415; 80048; 85027; 85610; 93005; 99202

== ENCOUNTER 2021-07-19 15:00 | Outpatient (REF) | payer MEDICAID, SELFPAY ==
[2021-07-19 17:54] LABS: Folate 14.7 ng/mL (> or = 4.0); Vitamin B12 322 pg/mL (200-900)
[2021-07-21 07:51] LABS: Transglutaminase Ab IgG 1.3 U/mL; Transglutaminase IgA <1.0 U/mL
[2021-07-24 13:15] LABS: Vitamin D 25-OH, D2 <4 ng/mL; Vitamin D 25-OH, D3 27 ng/mL; Vitamin D 25-OH, Total 27 ng/mL (30-100)
== END 2021-07-19 15:01 | disposition home or self-care (01) ==
LOC: HO.LAB 15:00
PROVIDERS: PCP Family Medicine; Referring Provider Family Medicine; Visit Provider Nurse Practitioner Family
DX: R10.11 Right upper quadrant pain (principal); R19.7 Diarrhea, unspecified; E55.9 Vitamin D deficiency, unspecified; R14.0 Abdominal distension (gaseous); K59.04 Chronic idiopathic constipation; K58.1 Irritable bowel syndrome with constipation; K76.0 Fatty (change of) liver, not elsewhere classified; K21.9 Gastro-esophageal reflux disease without esophagitis
CPT/HCPCS: 36415; 82306; 82607; 82746; 84443; 86364; 99212

== ENCOUNTER 2021-07-21 14:36 | Outpatient (REF) | payer MEDICAID, SELFPAY | END 2021-07-21 14:37 | disposition home or self-care (01) | LOC: HO.LNP 14:36 | PROVIDERS: Visit Provider Nurse Practitioner Family | DX: K21.9 Gastro-esophageal reflux disease without esophagitis (principal); Z11.0 Encounter for screening for intestinal infectious diseases | CPT/HCPCS: 87338 ==

== ENCOUNTER → 2021-08-12 10:10 | Outpatient (BNVA) | payer MEDICAID, SELFPAY | PROVIDERS: PCP Family Medicine; Visit Provider Hospitalist | DX: Z01.811 Encounter for preprocedural respiratory examination (principal); J44.9 Chronic obstructive pulmonary disease, unspecified; G47.33 Obstructive sleep apnea (adult) (pediatric); J98.4 Other disorders of lung; Z79.899 Other long term (current) drug therapy | CPT/HCPCS: 99212 ==

== ENCOUNTER → 2021-08-27 12:59 | Outpatient (BNVA) | payer MEDICAID, SELFPAY | PROVIDERS: PCP Family Medicine; Referring Provider Family Medicine; Visit Provider Nurse Practitioner Family | DX: K21.9 Gastro-esophageal reflux disease without esophagitis (principal); K58.1 Irritable bowel syndrome with constipation; E66.9 Obesity, unspecified; Z68.41 Body mass index [BMI] 40.0-44.9, adult | CPT/HCPCS: 99212 ==

== ENCOUNTER 2021-08-30 11:45 | Outpatient (REF) | payer MEDICAID, SELFPAY | END 2021-08-30 11:46 | disposition home or self-care (01) | LOC: HO.LNP 11:45 | PROVIDERS: Visit Provider Nurse Practitioner Family | DX: K21.9 Gastro-esophageal reflux disease without esophagitis (principal) | CPT/HCPCS: 87338 ==

== ENCOUNTER 2021-10-01 11:05 | Outpatient (REF) | payer MEDICAID, SELFPAY ==
[2021-10-04 13:14] LABS: H Pylori Breath Test Positive (Negative)
== END 2021-10-01 11:06 | disposition home or self-care (01) ==
LOC: CF 11:05
PROVIDERS: PCP Family Medicine; Referring Provider Family Medicine; Visit Provider Nurse Practitioner Family
DX: A04.8 Other specified bacterial intestinal infections (principal)
CPT/HCPCS: 36415; 83013

== ENCOUNTER → 2021-10-21 13:56 | Outpatient (BNVA) | payer MEDICAID, SELFPAY | PROVIDERS: PCP Family Medicine; Referring Provider Family Medicine; Visit Provider Internal Medicine Cardiovascular Disease | DX: R00.2 Palpitations (principal); E78.5 Hyperlipidemia, unspecified | CPT/HCPCS: 99212 ==

== ENCOUNTER 2021-10-22 08:48 | Outpatient (REF) | payer MEDICAID, SELFPAY ==
--- NOTE | ~2021-10-22 | FL_ITS ---
EXAMINATION: FL BARIUM SWALLOW CLINICAL INFORMATION: Dysphagia COMPARISON: None TECHNIQUE: Barium swallow examination is performed using fluoroscopic evaluation in addition to multiple fluoroscopic spot views. The patient is imaged both upright and prone and using both thick and thin sulfate along with effervescent granules. A 13 mm barium tablet was also utilized. Fluoroscopy time: 1.3 minutes DAP: 14.952 Gycm2 Images: 88 FINDINGS: There is normal oral bolus control and transfer. Normal posterior tilt of the epiglottis with elevation of the hyoid. No cricopharyngeal abnormality. The esophagus was normal in course, caliber, and contour. There was normal distensibility with no fixed segment of narrowing. No focal mucosal abnormality was identified. The barium tablet was swallowed without difficulty, freely passing through the esophagus into the stomach. No significant esophageal dysmotility was observed. Contrast passed freely across the gastroesophageal junction into the stomach. No significant hiatal hernia. No gastroesophageal reflux was observed. FL/FL barium swallow IMPRESSION: Normal esophagram.
[2021-10-22 09:49] LABS: Cholesterol 277 mg/dL; HDL Cholesterol 39 mg/dL; LDL Cholesterol Calculated 166 mg/dl; Triglycerides 362 mg/dL
== END 2021-10-22 08:49 | disposition home or self-care (01) ==
LOC: HO.XRAY 08:48
PROVIDERS: Absent Provider Internal Medicine Cardiovascular Disease; PCP Family Medicine; Visit Provider Nurse Practitioner Family
DX: R13.10 Dysphagia, unspecified (principal); E78.5 Hyperlipidemia, unspecified
CPT/HCPCS: 36415; 74220; 80061

== ENCOUNTER → 2021-10-27 13:48 | Outpatient (BNVA) | payer MEDICAID, SELFPAY | PROVIDERS: PCP Family Medicine; Referring Provider Family Medicine; Visit Provider Nurse Practitioner Family | DX: K21.9 Gastro-esophageal reflux disease without esophagitis (principal); K59.04 Chronic idiopathic constipation; A04.8 Other specified bacterial intestinal infections | CPT/HCPCS: 99212 ==

== ENCOUNTER 2021-11-01 13:30 | Outpatient (REF) | payer MEDICAID, SELFPAY | END 2021-11-01 13:31 | disposition home or self-care (01) | LOC: HO.LNP 13:30 | PROVIDERS: Visit Provider Nurse Practitioner Family | DX: K21.9 Gastro-esophageal reflux disease without esophagitis (principal) | CPT/HCPCS: 87338 ==

== ENCOUNTER → 2021-11-04 13:29 | Outpatient (BNVA) | payer MEDICAID, SELFPAY | PROVIDERS: Visit Provider Nurse Practitioner Family | DX: M79.7 Fibromyalgia (principal); M79.641 Pain in right hand; M79.642 Pain in left hand | CPT/HCPCS: 99212 ==

== ENCOUNTER 2021-11-13 09:33 | Outpatient (REF) | payer MEDICAID, SELFPAY ==
--- NOTE | ~2021-11-13 | XR_ITS ---
EXAMINATION: XI HAND, RIGHT XR HAND, LEFT CLINICAL INFORMATION: Bilateral pain COMPARISON: Radiographs bilateral hands and wrists 07/20/2017. TECHNIQUE: Each hand is imaged in 3 views. There are total of 6 views. FINDINGS: Right: Normal bony mineralization. No acute or healing fracture, dislocation, or destructive process. Ulnar variance is neutral. The carpus shows no joint narrowing or erosive change or chondrocalcinosis. Borderline narrowing lateral aspect first MCP with probable tiny subchondral cyst base of 1st proximal phalanx, similar to prior exam 2018. No erosive change. The second through fifth MCP joints and the interphalangeal joints are unremarkable. Left: Normal bony mineralization. No acute or healing fracture, dislocation, or destructive process. Ulnar variance is neutral. The carpus shows no joint narrowing or erosive change or chondrocalcinosis. The MCP and interphalangeal joints are unremarkable. No erosive changes. XR/XR hand LT min 3V IMPRESSION: -No acute or healing fracture, destructive process, or interval arthropathy from prior exam 2018. -Borderline narrowing first MCP. No erosive change.
--- NOTE | ~2021-11-13 | XR_ITS ---
EXAMINATION: XI HAND, RIGHT XR HAND, LEFT CLINICAL INFORMATION: Bilateral pain COMPARISON: Radiographs bilateral hands and wrists 07/20/2017. TECHNIQUE: Each hand is imaged in 3 views. There are total of 6 views. FINDINGS: Right: Normal bony mineralization. No acute or healing fracture, dislocation, or destructive process. Ulnar variance is neutral. The carpus shows no joint narrowing or erosive change or chondrocalcinosis. Borderline narrowing lateral aspect first MCP with probable tiny subchondral cyst base of 1st proximal phalanx, similar to prior exam 2018. No erosive change. The second through fifth MCP joints and the interphalangeal joints are unremarkable. Left: Normal bony mineralization. No acute or healing fracture, dislocation, or destructive process. Ulnar variance is neutral. The carpus shows no joint narrowing or erosive change or chondrocalcinosis. The MCP and interphalangeal joints are unremarkable. No erosive changes. XR/XR hand RT min 3V IMPRESSION: -No acute or healing fracture, destructive process, or interval arthropathy from prior exam 2018. -Borderline narrowing first MCP. No erosive change.
== END 2021-11-13 09:34 | disposition home or self-care (01) ==
LOC: HO.XRAY 09:33
PROVIDERS: PCP Family Medicine; Visit Provider Nurse Practitioner Family
DX: M79.642 Pain in left hand (principal); M79.641 Pain in right hand
CPT/HCPCS: 73130

== ENCOUNTER → 2021-11-19 13:28 | Outpatient (BNVA) | payer MEDICAID, SELFPAY | PROVIDERS: PCP Family Medicine; Visit Provider Hospitalist | DX: J44.9 Chronic obstructive pulmonary disease, unspecified (principal); J98.4 Other disorders of lung; G47.33 Obstructive sleep apnea (adult) (pediatric) | CPT/HCPCS: 99212 ==

== ENCOUNTER 2021-11-19 14:03 | Outpatient (REF) | payer MEDICAID, SELFPAY ==
--- NOTE | ~2021-11-19 | US_ITS ---
EXAMINATION: US VENOUS WITH DOPPLER UPPER EXTREMITY, LEFT CLINICAL INFORMATION: Left upper extremity pain COMPARISON: None TECHNIQUE: Ultrasound of the upper extremity is performed using compression sonography and color and pulse Doppler flow with assessment of augmentation of flow. There is also imaging and Doppler assessment of the jugular and subclavian veins. Spectral analysis with color-flow imaging is performed. FINDINGS: Respiratory variation, normal compression, and augmented flow are noted throughout the upper extremity including the axillary, brachial, cubital, and radial and ulnar veins. There is normal flow in the internal jugular and subclavian veins. There is no visible deep or superficial thrombophlebitis. If the patient's symptoms progress, a followup ultrasound in 5 -7 days might be of value to exclude proximal propagation from a nonvisualized distal arm vein. US/US venous duplex UE LT IMPRESSION: No DVT demonstrated in the left upper extremity.
== END 2021-11-19 14:04 | disposition home or self-care (01) ==
LOC: HO.US 14:03
PROVIDERS: PCP Family Medicine; Visit Provider Hospitalist
DX: J44.9 Chronic obstructive pulmonary disease, unspecified (principal); G47.33 Obstructive sleep apnea (adult) (pediatric); J98.4 Other disorders of lung; M79.602 Pain in left arm; M79.89 Other specified soft tissue disorders
CPT/HCPCS: 93971

== ENCOUNTER 2021-12-13 21:15 | Emergency (ER) | payer MEDICAID, SELFPAY ==
--- NOTE | 2021-12-13 | ECG_ITS ---
Test Reason : chest tightness Blood Pressure : / mmHG Vent. Rate : 092 BPM Atrial Rate : 092 BPM P-R Int : 136 ms QRS Dur : 072 ms QT Int : 356 ms P-R-T Axes : 067 -02 083 degrees QTc Int : 440 ms Normal sinus rhythm with sinus arrhythmia Inferior infarct (cited on or before 05-NOV-2020) Cannot rule out Anterior infarct , age undetermined Abnormal ECG When compared with ECG of 08-JUN-2021 13:08, No significant change was found Referred By: Generic ED Physician Electronically Signed By:SHELLY ROSA MD
--- NOTE | ~2021-12-13 | XR_ITS ---
EXAMINATION: XR CHEST CLINICAL INFORMATION: SOB COMPARISON: None TECHNIQUE: 2 views of the chest were obtained. FINDINGS: No significant abnormality is noted involving the heart, lungs, mediastinum, bony thorax or soft tissues. XR/XR chest 2V IMPRESSION: Unremarkable chest examination.
[2021-12-13 21:29] VITALS: BP 151/85; PULSE 95; RESP 95; TEMP 37; O2SAT 98; BMI 43.2
[2021-12-13 21:29] LABS: MANUAL DIFF FLAG NO
[2021-12-13 21:31] LABS: Basophils Percent Auto 0.3 % (0-2); Eosinophils Percent Auto 0.6 % (0-4); Hematocrit 39.7 % (37.0-47.0); Imm Gran Abs Auto 0.02 X10*3/uL (0.00-0.03); Imm Gran Pct Auto 0.3 % (0.0-0.4); Lymphocytes Absolute Auto 2.9 X10*3/uL (1.2-4.9); Lymphocytes Percent Auto 41.3 % (20-40); Mean Corpuscular HGB Conc 32.7 g/dl (31.0-35.0); Mean Corpuscular Hemoglobin 29.7 pg (27.0-33.0); Mean Corpuscular Volume 90.8 fL (80.0-98.0); Mean Platelet Volume 10.6 fL (9.4-12.3); Monocytes Absolute Auto 0.7 X10*3/uL (0.1-1.2); Monocytes Percent Auto 10.5 % (2-11); Neutrophils Absolute Auto 3.3 x10*3/uL (2.0-8.3); Platelet Count 258 X10*3/uL (160-400); Red Blood Count 4.37 X10*6/uL (4.20-5.50); Red Cell Distribution Width 13.2 % (11.0-16.0); White Blood Count 6.9 X10*3/uL (4.8-10.8)
[2021-12-13 21:47] LABS: Alanine Aminotransferase 17 U/L (0-31); Albumin Level 4.7 g/dL (3.5-5.0); Alkaline Phosphatase 90 U/L (39-117); Anion Gap 11 (12-20); Aspartate Amino Transferase 19 U/L (5-31); Bilirubin Total 0.3 mg/dL (0.0-1.0); Blood Urea Nitrogen 9 mg/dL (9-16); COVID-19 Test Negative (Negative); Calcium 9.5 mg/dL (8.4-10.2); Carbon Dioxide 29 mmol/L (22-29); Chloride 106 mmol/L (96-108); Creatinine Clr Calc Pharmacy 83.4; Estimated Glomerular Filt Rate > 60; Glucose Random 104 mg/dL (60-115); IDNOW Serial# 16C4AD1C; Influenza A Negative (Negative); Influenza B2 Negative (Negative); Potassium 3.9 mmol/L (3.3-5.1); Sodium 142 mmol/L (135-145); Total Protein 7.6 g/dL (6.5-8.0)
[2021-12-13 21:50] LABS: Troponin-I High Sensitivity < 3.5 ng/L (<3.5-17.0)
--- NOTE | 2021-12-13 21:58 | ED_ITS ---
HPI - Chest Pain General Chief Complaint: Chest Pain Stated Complaint: Chest tightness Time Seen by Provider: 12/13/21 21:58 Source: patient Mode of arrival: ambulatory Limitations: no limitations History of Present Illness HPI narrative: 51-year-old female with history of morbid obesity, restrictive lung disease, NAM on CPAP, asthma/COPD, fibromyalgia, history of COVID-19 with prolonged and persistent dyspnea after COVID-19 infection, HLD, fatty liver who presents to the ER for evaluation of persistent cough and difficulty getting the phlegm expectorated for several days. She reports chest discomfort when she coughs. She states she is not sleeping well because of the phlegm. She states the phlegm is clear or yellow in color. She denies any hemoptysis. She reports her shortness of breath is at baseline and she uses her inhalers with some relief. She follows with pulmonology here. She has no known sick contacts. She denies any history of seasonal allergies. MD complaint: chest pain Onset (ago): day(s) Timing of current episode: constant Prior episodes: Yes Onset: during rest and during exertion Pain location: left chest and right chest Pain radiation: none Severity: mild Quality: sharp Relieving factors: nothing Exacerbating factors: other (coughing) Context: recent illness Associated symptoms: dyspnea and cough Treatment prior to arrival: none Risk Factors Coronary artery disease risk factors: hyperlipidemia and hypertension Thoracic aortic dissection risk factors: none Related Data On Oral Contraceptives: No Home Medications Medication Instructions Recorded Confirmed albuterol sulfate 90 mcg/actuation 1 inh inhalation Q4-6H PRN Gastric 03/26/20 10/21/21 breath activated powder inhaler Reflux aspirin 81 mg tablet,delayed 81 mg PO DAILY 03/26/20 10/21/21 release (Adult Low Dose Aspirin) docusate sodium 100 mg capsule 100 mg PO DAILY PRN Constipation 03/26/20 (Colace) fluticasone propionate 110 1 puff inhalation BID 03/26/20 10/21/21 mcg/actuation HFA aerosol inhaler (Flovent HFA) lorazepam 2 mg tablet (Ativan) 2 mg PO BEDTIME PRN Anxiety 03/26/20 10/21/21 methocarbamol 500 mg tablet 500 mg PO QID PRN Muscle Spasm 03/26/20 10/21/21 pantoprazole 40 mg tablet,delayed 40 mg PO DAILY 03/26/20 10/21/21 release (Protonix) zolpidem 10 mg tablet (Ambien) 5 mg PO BEDTIME PRN Anxiety 03/26/20 10/21/21 tramadol 50 mg tablet 50 mg PO BID PRN Pain 05/20/20 10/21/21 CPAP (CPAP Machine/Device) #1 ea 12/24/20 10/21/21 cetirizine 10 mg tablet 10 mg PO DAILY 07/19/21 10/21/21 duloxetine 60 mg capsule,delayed 60 mg PO DAILY 07/19/21 10/21/21 release fluticasone propionate 50 2 spray intranasal DAILY 07/19/21 10/21/21 mcg/actuation nasal spray,suspension lisinopril 5 mg tablet 5 mg PO DAILY 07/19/21 10/21/21 multivitamin-iron sulfate 15 1 tab PO DAILY 07/19/21 10/21/21 mg-folic acid 400 mcg tablet (Tab-A-Colton Multivitamin w-iron) tiotropium bromide 1.25 2 puff PO DAILY 08/27/21 10/21/21 mcg/actuation mist for inhalation (Spiriva Respimat) Previous Rx's Medication Instructions Recorded sumatriptan succinate 50 mg tablet 50 mg PO Q2-4H PRN migraine 11/05/20 headache #10 tabs albuterol sulfate 90 mcg/actuation 1 inh inhalation QID PRN shortness 12/28/20 aerosol inhaler of breath or wheezing #8.5 grams fenofibrate 54 mg tablet 54 mg PO DAILY 90 days #90 tabs 05/27/21 polyethylene glycol 3350 17 gram 17 g PO DAILY #30 ea 07/19/21 oral powder packet (Miralax) cholecalciferol (vitamin D3) 50 50 mcg PO DAILY #30 tabs 07/26/21 mcg (2,000 unit) tablet ezetimibe 10 mg tablet 10 mg PO DAILY 90 days #90 tabs 08/23/21 rosuvastatin 40 mg tablet (Crestor) 40 mg PO DAILY 90 days #90 tabs 10/19/21 evolocumab 140 mg/mL subcutaneous 140 mg subcut Q2W 90 days #7 mL 10/21/21 pen injector (Repatha SureClick) famotidine 40 mg tablet 40 mg PO BEDTIME #30 tabs 11/17/21 sennosides 8.6 mg tablet (Natural 8.6 mg PO BEDTIME constipation #30 11/17/21 Senna Laxative) tabs fluticasone fur. 200 mcg-umeclid 1 inh inhalation DAILY 30 days #60 11/19/21 62.5 mcg-vilant 25 mcg ea inhalat.powder (Trelegy Ellipta) umeclidinium 62.5 mcg-vilanterol 1 inh inhalation DAILY #60 ea 11/19/21 25 mcg/actuation powdr for inhalation (Anoro Ellipta) amlodipine 10 mg tablet 10 mg PO DAILY #60 tabs 11/25/21 azithromycin 250 mg tablet See Rx Instructions PO .COMPLEX #6 12/13/21 (Zithromax Z-Jan) tabs benzonatate 100 mg capsule 100 mg PO TID PRN cough #30 caps 12/13/21 guaifenesin 1,200 mg tablet, 1,200 mg PO BID #14 tabs 12/13/21 extended release 12 hr (Mucinex) prednisone 20 mg tablet 40 mg PO DAILY #10 tabs 12/13/21 Allergies Allergy/AdvReac Type Severity Reaction Status Date / Time loratadine [From CLARITIN] Allergy Mild CHILLS AND Verified 11/19/21 13:38 DIFF BREATHING Review of Systems Review of Systems: Constitutional: No Fever, No Chills ENT/Mouth: No sore throat, No Rhinorrhea, No Swallowing Difficulty Cardiovascular: + Chest Pain, No SOB, No Orthopnea, No Edema Respiratory: + Cough, + Sputum, No Wheezing, + dyspnea Gastrointestinal: No Nausea, No Vomiting, No Diarrhea, No abdominal Pain Musculoskeletal: No joint pain, No Myalgias Skin: No Skin Lesions, No rash Neuro: No Weakness, No Numbness, No Dizziness, No Headache Psych: No Anxiety/Panic, No Depression Heme/Lymph: No Bruising, No Lymphadenopathy Endocrine: No Polyuria, No Polydipsia PMFSH Past Medical History Medical History Acid reflux Asthma-COPD overlap syndrome Chronic restrictive lung disease Coronary artery disease Epigastric pain Fatty liver Fibromyalgia Gall bladder polyp Hyperlipidemia Hypertension Obesity (BMI 30-39.9) NAM treated with BiPAP Pre-op chest exam Sleep apnea Surgical History History of cardiac cath History of endometrial ablation History of esophagogastroduodenoscopy Hx of tubal ligation Family History Family History Paternal Grandfather No problems noted. Father History of cancer Lung cancer Mother Heart disease Social History Social History Household Members: Significant Other and Children Housing: Apartment Do you presently have visiting nurse or other home services: No Alcohol intake: never Patient Tobacco Use Status: Former Tobacco user Tobacco use type: Cigarette Years Smoked: 5 years Second Hand Smoke Exposure: No Advance Directives: No Advance Directives Information Provided: No service: No Current occupational status: disabled Physical Exam Vital Signs: Vital Signs: Last Vital Signs Temp 98.6 F 12/13/21 21:29 Pulse 73 12/13/21 23:11 Resp 18 12/13/21 23:11 BP 159/80 H 12/13/21 23:11 Pulse Ox 97 12/13/21 23:11 O2 Del Method 12/13/21 23:11 BMI result Body Mass Index 43.2 Appearance: Alert. Oriented X3. No acute distress. Eyes: Pupils equal, round and reactive to light. ENT: Pharynx normal. Neck: Normal inspection. Neck supple. CVS: Normal heart rate and rhythm. Pulses normal. Respiratory: No respiratory distress. Breath sounds diminished and coarse but no wheeze, rhonchi or rales. Abdomen: Obese, soft and nontender. +BS x4 Skin: Skin warm and dry. Normal skin color. Normal skin turgor. No rashes. Extremities: No lower extremity edema. No calf tenderness Neuro: Oriented X 3. Grossly normal, nonfocal. Course Course Course Narrative: 51 yo morbidly obese female with history of restrictive lung disease, COPD, asthma, NAM, fibromyalgia presents to the ER with chest congestion, phlegm, cough. No fever or chills. Chest pains only with coughing and is reproducible. Doubt ACS. EKG without STEMI. Will check troponin and basic lab workup. Chest x-ray pending and will also check COVID swab. Reevaluation(s) Reevaluation #1: Chest x-ray is clear. Troponin is undetectable. Labs were unremarkable. Will treat for acute bronchitis and have her follow-up with her hoseman. Patient agrees with plan. etcher apprentice photoengraving used discussed plan and return precautions. MDM - Chest Pain Medical Records Data Attestation: I reviewed the patient's medical records. Lab Data Attestation: I reviewed the patient's lab results. Result diagrams: 12/13/21 21:25 12/13/21 21:25 Labs: Lab Results 12/13/21 12/13/21 12/13/21 Range/Units 21:25 21:25 21:25 WBC 6.9 (4.8-10.8) X10*3/uL RBC 4.37 (4.20-5.50) X10*6/uL Hgb 13.0 (12.0-16.0) g/dl Hct 39.7 (37.0-47.0) % MCV 90.8 (80.0-98.0) fL MCH 29.7 (27.0-33.0) pg MCHC 32.7 (31.0-35.0) g/dl RDW 13.2 (11.0-16.0) % Plt Count 258 (160-400) X10*3/uL MPV 10.6 (9.4-12.3) fL Immature Gran % (Auto) 0.3 (0.0-0.4) % Neut % (Auto) 47.0 (45-73) % Lymph % (Auto) 41.3 H (20-40) % [place] % (Auto) 10.5 (2-11) % Eos % (Auto) 0.6 (0-4) % Baso % (Auto) 0.3 (0-2) % Lymph # (Auto) 2.9 (1.2-4.9) X10*3/uL [place] # (Auto) 0.7 (0.1-1.2) X10*3/uL Eos # (Auto) 0.0 (0.0-0.4) X10*3/uL Baso # (Auto) 0.0 (0.0-0.2) X10*3/uL Abs Immat Gran (auto) 0.02 (0.00-0.03) X10*3/uL Absolute Neuts (auto) 3.3 (2.0-8.3) x10*3/uL Absolute Nucleated RBC 0.000 (0.0-0.012) X10*3/uL Nucleated RBC % (auto) 0.0 (0.0-0.2) /100WBC Sodium 142 (135-145) mmol/L Potassium 3.9 (3.3-5.1) mmol/L Chloride 106 (96-108) mmol/L Carbon Dioxide 29 (22-29) mmol/L Anion Gap 11 L (12-20) BUN 9 (9-16) mg/dL Creatinine 0.86 (0.5-1.4) mg/dL Estim Creat Clear Calc 83.4 Estimated GFR > 60 Random Glucose 104 (60-115) mg/dL Calcium 9.5 (8.4-10.2) mg/dL Total Bilirubin 0.3 (0.0-1.0) mg/dL AST 19 (5-31) U/L ALT 17 (0-31) U/L Alkaline Phosphatase 90 (39-117) U/L Troponin I High Sens < 3.5 (<3.5-17.0) ng/L Total Protein 7.6 (6.5-8.0) g/dL Albumin 4.7 (3.5-5.0) g/dL COVID-19 (MIREYA) (Negative) COVID-19 Clin Com Influenza Type A (MIRIAM) (Negative) Influenza Type B (MIRIAM) (Negative) Influenza A & B Note 12/13/21 12/13/21 Range/Units 21:25 21:25 WBC (4.8-10.8) X10*3/uL RBC (4.20-5.50) X10*6/uL Hgb (12.0-16.0) g/dl Hct (37.0-47.0) % MCV (80.0-98.0) fL MCH (27.0-33.0) pg MCHC (31.0-35.0) g/dl RDW (11.0-16.0) % Plt Count (160-400) X10*3/uL MPV (9.4-12.3) fL Immature Gran % (Auto) (0.0-0.4) % Neut % (Auto) (45-73) % Lymph % (Auto) (20-40) % [place] % (Auto) (2-11) % Eos % (Auto) (0-4) % Baso % (Auto) (0-2) % Lymph # (Auto) (1.2-4.9) X10*3/uL [place] # (Auto) (0.1-1.2) X10*3/uL Eos # (Auto) (0.0-0.4) X10*3/uL Baso # (Auto) (0.0-0.2) X10*3/uL Abs Immat Gran (auto) (0.00-0.03) X10*3/uL Absolute Neuts (auto) (2.0-8.3) x10*3/uL Absolute Nucleated RBC (0.0-0.012) X10*3/uL Nucleated RBC % (auto) (0.0-0.2) /100WBC Sodium (135-145) mmol/L Potassium (3.3-5.1) mmol/L Chloride (96-108) mmol/L Carbon Dioxide (22-29) mmol/L Anion Gap (12-20) BUN (9-16) mg/dL Creatinine (0.5-1.4) mg/dL Estim Creat Clear Calc Estimated GFR Random Glucose (60-115) mg/dL Calcium (8.4-10.2) mg/dL Total Bilirubin (0.0-1.0) mg/dL AST (5-31) U/L ALT (0-31) U/L Alkaline Phosphatase (39-117) U/L Troponin I High Sens (<3.5-17.0) ng/L Total Protein (6.5-8.0) g/dL Albumin (3.5-5.0) g/dL COVID-19 (MIREYA) Negative (Negative) COVID-19 Clin Com See Note Influenza Type A (MIRIAM) Negative (Negative) Influenza Type B (MIRIAM) Negative (Negative) Influenza A & B Note See Note ECG Data ECG #1: Attestation: I personally reviewed and interpreted this ECG as follows: ECG interpretation date: 12/13/21 Prior ECG tracings: available for review Interpretation: Sinus rhythm with sinus arrhythmia, heart rate 92 beats per minute, normal NC interval, no ST segment elevations. No change from prior May 2021. Discharge Plan Discharge Clinical Impression: Bronchitis Patient Disposition: Home, Self-Care Instructions: Acute Bronchitis (ED) Additional Instructions: Your x-ray today was normal. Your lab workup was unremarkable. Take the prescribed medications as directed. Recommend following up with your lung doctor this week. If you develop new or worsening symptoms call 911 or come back to the ER for further evaluation. Prescriptions: New prednisone 20 mg tablet 40 mg PO DAILY Qty: 10 0RF azithromycin [Zithromax Z-Jan] 250 mg tablet See Rx Instructions .ROUTE .COMPLEX Qty: 6 0RF Rx Instructions: take 500 mg today (day 1), then 250 mg for 4 days (days 2-5) benzonatate 100 mg capsule 100 mg PO TID PRN (Reason: cough) Qty: 30 0RF Mucinex 1,200 mg tablet extended release 12hr 1,200 mg PO BID Qty: 14 0RF No Action fenofibrate 54 mg tablet 54 mg PO DAILY 90 Days Qty: 90 3RF cholecalciferol (vitamin D3) 50 mcg (2,000 unit) tablet 50 mcg PO DAILY Qty: 30 6RF ezetimibe 10 mg tablet 10 mg PO DAILY 90 Days Qty: 90 3RF rosuvastatin [Crestor] 40 mg tablet 40 mg PO DAILY 90 Days Qty: 90 1RF Repatha SureClick 140 mg/mL pen injector 140 mg subcut Q2W 90 Days Qty: 7 3RF famotidine 40 mg tablet 40 mg PO BEDTIME Qty: 30 3RF sennosides [Natural Senna Laxative] 8.6 mg tablet 8.6 mg PO BEDTIME Qty: 30 3RF amlodipine 10 mg tablet 10 mg PO DAILY Qty: 60 3RF sumatriptan succinate 50 mg tablet 50 mg PO Q2-4H PRN (Reason: migraine headache) Qty: 10 0RF Rx Instructions: do not exceed 4 doses per 24 hrs tramadol 50 mg Tablet 50 mg PO BID PRN (Reason: Pain) albuterol sulfate 90 mcg/actuation HFA aerosol inhaler 1 inh inhalation QID PRN (Reason: shortness of breath or wheezing) Qty: 8.5 0RF albuterol sulfate 90 mcg/actuation aerosol powdr breath activated 1 inh inhalation Q4-6H PRN (Reason: Gastric Reflux) lorazepam [Ativan] 2 mg tablet 2 mg PO BEDTIME PRN (Reason: Anxiety) Flovent HFA 110 mcg/actuation HFA aerosol inhaler 1 puff inhalation BID zolpidem [Ambien] 10 mg tablet 5 mg PO BEDTIME PRN (Reason: Anxiety) aspirin [Adult Low Dose Aspirin] 81 mg tablet,delayed release (DR/EC) 81 mg PO DAILY methocarbamol 500 mg tablet 500 mg PO QID PRN (Reason: Muscle Spasm) pantoprazole [Protonix] 40 mg tablet,delayed release (DR/EC) 40 mg PO DAILY docusate sodium [Colace] 100 mg capsule 100 mg PO DAILY PRN (Reason: Constipation) (DME) CPAP Machine/Device Device See Rx Instructions .ROUTE .MEDSUPPLY Qty: 1 Rx Instructions: As directed Tab-A-Colton Multivitamin w-iron 15 mg iron- 400 mcg tablet 1 tab PO DAILY duloxetine 60 mg capsule,delayed release(DR/EC) 60 mg PO DAILY fluticasone propionate 50 mcg/actuation spray,suspension 2 spray intranasal DAILY lisinopril 5 mg tablet 5 mg PO DAILY cetirizine 10 mg tablet 10 mg PO DAILY polyethylene glycol 3350 [Miralax] 17 gram powder in packet 17 g PO DAILY Qty: 30 5RF Spiriva Respimat 1.25 mcg/actuation mist 2 puff PO DAILY Anoro Ellipta 62.5-25 mcg/actuation blister with device 1 inh inhalation DAILY Qty: 60 11RF Trelegy Ellipta 200-62.5-25 mcg blister with device 1 inh inhalation DAILY 30 Days Qty: 60 12RF Interventions: ED Discharge Assessment Last Done: 12/13/21 23:12 Discharge Date/Time: 12/13/21 23:13 Print Language: Turkish
[2021-12-13 22:04] VITALS: BP 180/89; PULSE 86; RESP 20; O2SAT 98
[2021-12-13] MEDS: Benzonatate 100 MG CAPSULE PO (23:03)
[2021-12-13] MEDS: guaiFEN/Codeine SF 200/20/10ML 10 ML LIQUID PO (23:03)
[2021-12-13 23:11] VITALS: BP 159/80; PULSE 73; RESP 18; O2SAT 97
== END 2021-12-13 23:13 | disposition home or self-care (01) ==
PROVIDERS: Emergency Provider Internal Medicine; PCP Family Medicine
DX: J40 Bronchitis, not specified as acute or chronic (principal); R07.89 Other chest pain; R05.9 Cough, unspecified; Z20.822 Contact with and (suspected) exposure to COVID-19; Z87.891 Personal history of nicotine dependence
CPT/HCPCS: 36415; 71046; 80053; 84484; 85025; 87502; 87635; 93005; 99284

== ENCOUNTER 2021-12-25 01:05 | Emergency (ER) | payer MEDICAID, SELFPAY ==
--- NOTE | ~2021-12-25 | XR_ITS ---
EXAMINATION: XR CHEST CLINICAL INFORMATION: Chest pain COMPARISON: 12/13/2021 TECHNIQUE: Frontal view of the chest was obtained. FINDINGS: The lungs are well expanded. There is no focal consolidation, edema, or effusion. No pneumothorax. The cardiomediastinal silhouette is within normal limits. No acute osseous abnormality. XR/XR chest 1V IMPRESSION: Clear lungs.
[2021-12-25 01:09] VITALS: BP 174/88; PULSE 89; RESP 20; TEMP 36.4; O2SAT 99; BMI 43.0
--- NOTE | 2021-12-25 01:12 | ECG_ITS ---
Test Reason : chest pain Blood Pressure : / mmHG Vent. Rate : 082 BPM Atrial Rate : 082 BPM P-R Int : 126 ms QRS Dur : 076 ms QT Int : 368 ms P-R-T Axes : 037 -03 078 degrees QTc Int : 429 ms Normal sinus rhythm Cannot rule out Anterior infarct (cited on or before 08-JUN-2021) Abnormal ECG When compared with ECG of 13-DEC-2021 21:13, Criteria for Inferior infarct are no longer Present Referred By: Generic ED Physician Electronically Signed By:CORDELL MONTAGUE
--- NOTE | 2021-12-25 01:22 | ED_ITS ---
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 Mode of arrival: ambulatory Limitations: no limitations History of Present Illness HPI narrative: 51 yo female with hx of asthma, obesity, HLD, CAD, fatty liver, DVT study of LUE on 11/19 negative here with c/o 2 hours of sharp intermittent chest pain no associated symptoms and LUE swelling on lateral forearm > 1 month with prior negative DVT study MD complaint: chest pain Pertinent past history: coronary artery disease Onset (ago): hour(s) (2) Timing of current episode: episodic Prior episodes: No Onset: during rest Pain location: right chest Pain radiation: none Severity: moderate Quality: sharp Relieving factors: nothing Exacerbating factors: nothing Treatment prior to arrival: none Related Data Home Medications Medication Instructions Recorded Confirmed albuterol sulfate 90 mcg/actuation 1 inh inhalation Q4-6H PRN Gastric 03/26/20 10/21/21 breath activated powder inhaler Reflux aspirin 81 mg tablet,delayed 81 mg PO DAILY 03/26/20 10/21/21 release (Adult Low Dose Aspirin) docusate sodium 100 mg capsule 100 mg PO DAILY PRN Constipation 03/26/20 10/21/21 (Colace) fluticasone propionate 110 1 puff inhalation BID 03/26/20 10/21/21 mcg/actuation HFA aerosol inhaler (Flovent HFA) lorazepam 2 mg tablet (Ativan) 2 mg PO BEDTIME PRN Anxiety 03/26/20 10/21/21 methocarbamol 500 mg tablet 500 mg PO QID PRN Muscle Spasm 03/26/20 10/21/21 pantoprazole 40 mg tablet,delayed 40 mg PO DAILY 03/26/20 10/21/21 release (Protonix) zolpidem 10 mg tablet (Ambien) 5 mg PO BEDTIME PRN Anxiety 03/26/20 10/21/21 tramadol 50 mg tablet 50 mg PO BID PRN Pain 05/20/20 10/21/21 CPAP (CPAP Machine/Device) #1 ea 12/24/20 10/21/21 cetirizine 10 mg tablet 10 mg PO DAILY 07/19/21 10/21/21 duloxetine 60 mg capsule,delayed 60 mg PO DAILY 07/19/21 10/21/21 release fluticasone propionate 50 2 spray intranasal DAILY 07/19/21 10/21/21 mcg/actuation nasal spray,suspension lisinopril 5 mg tablet 5 mg PO DAILY 07/19/21 10/21/21 multivitamin-iron sulfate 15 1 tab PO DAILY 07/19/21 10/21/21 mg-folic acid 400 mcg tablet (Tab-A-Colton Multivitamin w-iron) tiotropium bromide 1.25 2 puff PO DAILY 08/27/21 10/21/21 mcg/actuation mist for inhalation (Spiriva Respimat) Previous Rx's Medication Instructions Recorded sumatriptan succinate 50 mg tablet 50 mg PO Q2-4H PRN migraine 11/05/20 headache #10 tabs albuterol sulfate 90 mcg/actuation 1 inh inhalation QID PRN shortness 12/28/20 aerosol inhaler of breath or wheezing #8.5 grams fenofibrate 54 mg tablet 54 mg PO DAILY 90 days #90 tabs 05/27/21 polyethylene glycol 3350 17 gram 17 g PO DAILY #30 ea 07/19/21 oral powder packet (Miralax) cholecalciferol (vitamin D3) 50 50 mcg PO DAILY #30 tabs 07/26/21 mcg (2,000 unit) tablet ezetimibe 10 mg tablet 10 mg PO DAILY 90 days #90 tabs 08/23/21 rosuvastatin 40 mg tablet (Crestor) 40 mg PO DAILY 90 days #90 tabs 10/19/21 evolocumab 140 mg/mL subcutaneous 140 mg subcut Q2W 90 days #7 mL 10/21/21 pen injector (Repatha SureClick) famotidine 40 mg tablet 40 mg PO BEDTIME #30 tabs 11/17/21 sennosides 8.6 mg tablet (Natural 8.6 mg PO BEDTIME constipation #30 11/17/21 Senna Laxative) tabs fluticasone fur. 200 mcg-umeclid 1 inh inhalation DAILY 30 days #60 11/19/21 62.5 mcg-vilant 25 mcg ea inhalat.powder (Trelegy Ellipta) umeclidinium 62.5 mcg-vilanterol 1 inh inhalation DAILY #60 ea 11/19/21 25 mcg/actuation powdr for inhalation (Anoro Ellipta) amlodipine 10 mg tablet 10 mg PO DAILY #60 tabs 11/25/21 azithromycin 250 mg tablet See Rx Instructions PO .COMPLEX #6 12/13/21 (Zithromax Z-Jan) tabs benzonatate 100 mg capsule 100 mg PO TID PRN cough #30 caps 12/13/21 guaifenesin 1,200 mg tablet, 1,200 mg PO BID #14 tabs 12/13/21 extended release 12 hr (Mucinex) prednisone 20 mg tablet 40 mg PO DAILY #10 tabs 12/13/21 Allergies Allergy/AdvReac Type Severity Reaction Status Date / Time loratadine [From CLARITIN] Allergy Mild CHILLS AND Verified 12/25/21 01:11 DIFF BREATHING Review of Systems Review of Systems: Constitutional : No Weight loss, No Fever, No Chills ENT/Mouth : No sore throat, No Rhinorrhea Eyes: No Eye Pain, No Swelling Cardiovascular : pos Chest Pain, no SOB, no Dyspnea on Exertion, No Orthopnea, No Edema, No Palpitations Respiratory : No Cough, No Sputum Gastrointestinal : no Nausea, No Vomiting, No Diarrhea, No abdominal Pain, No Hematochezia, No Melena Genitourinary : No Dysuria, No Urinary Frequency Musculoskeletal : No joint pain, No Myalgias, No Joint Swelling, pos arm pain Skin : No Skin Lesions, No rash Neuro : No Weakness, No Numbness, No Dizziness, No Headache Psych : No Anxiety/Panic, No Depression Heme/Lymph: No Bruising, No Lymphadenopathy Endocrine : No Polyuria, No Polydipsia All other systems reviewed and are negative [facility] Past Medical History Attestation statement: The following information was validated with the patient. Source: old records reviewed Medical History Acid reflux Asthma-COPD overlap syndrome Chronic restrictive lung disease Coronary artery disease Epigastric pain Fatty liver Fibromyalgia Gall bladder polyp Hyperlipidemia Hypertension Obesity (BMI 30-39.9) NAM treated with BiPAP Pre-op chest exam Sleep apnea Surgical History History of cardiac cath History of endometrial ablation History of esophagogastroduodenoscopy Hx of tubal ligation Family History Family History Paternal Grandfather No problems noted. Father History of cancer Lung cancer Mother Heart disease Social History Social History Household Members: Significant Other and Children Housing: Apartment Do you presently have visiting nurse or other home services: No Alcohol intake: never Patient Tobacco Use Status: Former Tobacco user Tobacco use type: Cigarette Years Smoked: 5 years Second Hand Smoke Exposure: No Advance Directives: No Advance Directives Information Provided: Yes service: No Current occupational status: disabled Physical Exam Vital Signs: Vital Signs: Last Vital Signs Temp 97.5 F 12/25/21 01:09 Pulse 83 12/25/21 04:17 Resp 19 12/25/21 04:17 BP 126/62 12/25/21 04:17 Pulse Ox 96 12/25/21 04:17 O2 Del Method 12/25/21 04:17 BMI result Body Mass Index 43.0 Appearance: Alert. Oriented X3. No acute distress. Eyes: Pupils equal, round and reactive to light. ENT: Pharynx normal. Neck: Normal inspection. Neck supple. CVS: Normal heart rate and rhythm. Pulses normal. Respiratory: No respiratory distress. Breath sounds normal. Abdomen: Soft and nontender. Skin: Skin warm and dry. Normal skin color. Normal skin turgor. Extremities: No lower extremity edema. No calf ttp L forearm lateral aspect mild ttp focal area of swelling, mild swelling into hand but no AC swelling no upper arm swelling Neuro: Oriented X 3. No motor deficit. No sensory deficit. Course Course Course Narrative: unchanged EKG, atypical chest pain with nonischemic EKG and two flat trop with negative ddimer MDM - Chest Pain MDM Narrative Medical decision making narrative: 51 yo female with hx of asthma, obesity, HLD, CAD, fatty liver, chronic LUE pain and swelling isolated to lateral forearm presents with atypical sharp intermittent chest pain not associated with breathing. Will need troponin x 2, ddimer. She also notes L forearm lateral swelling > 1 month no trauma noted, prior DVT study negative seems muscle related given area and there is no proximal swelling or AC swelling to suggest DVT is is on lateral aspect of the forearm. Dispo per results and findings. Lab Data Result diagrams: 12/25/21 01:21 12/25/21 01:21 Labs: Lab Results 12/25/21 12/25/2122 Range/Units 01:21 01:21 01:21 WBC 8.1 (4.8-10.8) X10*3/uL RBC 4.33 (4.20-5.50) X10*6/uL Hgb 13.2 (12.0-16.0) g/dl Hct 39.1 (37.0-47.0) % MCV 90.3 (80.0-98.0) fL MCH 30.5 (27.0-33.0) pg MCHC 33.8 (31.0-35.0) g/dl RDW 13.1 (11.0-16.0) % Plt Count 260 (160-400) X10*3/uL MPV 10.9 (9.4-12.3) fL Immature Gran % (Auto) 0.2 (0.0-0.4) % Neut % (Auto) 41.1 L (45-73) % Lymph % (Auto) 47.8 H (20-40) % [place] % (Auto) 10.1 (2-11) % Eos % (Auto) 0.6 (0-4) % Baso % (Auto) 0.2 (0-2) % Lymph # (Auto) 3.9 (1.2-4.9) X10*3/uL [place] # (Auto) 0.8 (0.1-1.2) X10*3/uL Eos # (Auto) 0.1 (0.0-0.4) X10*3/uL Baso # (Auto) 0.0 (0.0-0.2) X10*3/uL Abs Immat Gran (auto) 0.02 (0.00-0.03) X10*3/uL Absolute Neuts (auto) 3.3 (2.0-8.3) x10*3/uL Absolute Nucleated RBC 0.000 (0.0-0.012) X10*3/uL Nucleated RBC % (auto) 0.0 (0.0-0.2) /100WBC PT (10.0-13.1) SEC INR (0.9-1.1) D-Dimer High Sensitivty NG/ML Sodium 138 (135-145) mmol/L Potassium 3.9 (3.3-5.1) mmol/L Chloride 106 (96-108) mmol/L Carbon Dioxide 24 (22-29) mmol/L Anion Gap 12 (12-20) BUN 13 (9-16) mg/dL Creatinine 0.81 (0.5-1.4) mg/dL Estim Creat Clear Calc 88.1 Estimated GFR > 60 Random Glucose 107 (60-115) mg/dL Calcium 9.8 (8.4-10.2) mg/dL Troponin I High Sens < 3.5 (<3.5-17.0) ng/L 12/25/21 12/25/21 Range/Units 01:45 04:14 WBC (4.8-10.8) X10*3/uL RBC (4.20-5.50) X10*6/uL Hgb (12.0-16.0) g/dl Hct (37.0-47.0) % MCV (80.0-98.0) fL MCH (27.0-33.0) pg MCHC (31.0-35.0) g/dl RDW (11.0-16.0) % Plt Count (160-400) X10*3/uL MPV (9.4-12.3) fL Immature Gran % (Auto) (0.0-0.4) % Neut % (Auto) (45-73) % Lymph % (Auto) (20-40) % [place] % (Auto) (2-11) % Eos % (Auto) (0-4) % Baso % (Auto) (0-2) % Lymph # (Auto) (1.2-4.9) X10*3/uL [place] # (Auto) (0.1-1.2) X10*3/uL Eos # (Auto) (0.0-0.4) X10*3/uL Baso # (Auto) (0.0-0.2) X10*3/uL Abs Immat Gran (auto) (0.00-0.03) X10*3/uL Absolute Neuts (auto) (2.0-8.3) x10*3/uL Absolute Nucleated RBC (0.0-0.012) X10*3/uL Nucleated RBC % (auto) (0.0-0.2) /100WBC PT 11.2 (10.0-13.1) SEC INR 1.0 (0.9-1.1) D-Dimer High Sensitivty < 150 NG/ML Sodium (135-145) mmol/L Potassium (3.3-5.1) mmol/L Chloride (96-108) mmol/L Carbon Dioxide (22-29) mmol/L Anion Gap (12-20) BUN (9-16) mg/dL Creatinine (0.5-1.4) mg/dL Estim Creat Clear Calc Estimated GFR Random Glucose (60-115) mg/dL Calcium (8.4-10.2) mg/dL Troponin I High Sens < 3.5 (<3.5-17.0) ng/L ECG Data ECG #1: Attestation: I personally reviewed and interpreted this ECG as follows: ECG interpretation date: 12/25/21 ECG interpretation time: 01:38 Interpretation: Rate: 82 Rhythm: NSR [place]: left Normal P waves. Normal DOMINGO. Normal QRS complex. ST T wave : inverted I and aVL no PIYUSH qTC: normal prior studies: no change from prior The study has been interpreted contemporaneously by me. . Discharge Plan Discharge Clinical Impression: Atypical chest pain Patient Disposition: Home, Self-Care Instructions: Chest Pain (ED) Additional Instructions: return to ED for any worsening symptoms or concerns an?lisis de myke negativos para el coraz?n y an?lisis de myke negativos para co?gulos de myke Prescriptions: No Action fenofibrate 54 mg tablet 54 mg PO DAILY 90 Days Qty: 90 3RF cholecalciferol (vitamin D3) 50 mcg (2,000 unit) tablet 50 mcg PO DAILY Qty: 30 6RF ezetimibe 10 mg tablet 10 mg PO DAILY 90 Days Qty: 90 3RF rosuvastatin [Crestor] 40 mg tablet 40 mg PO DAILY 90 Days Qty: 90 1RF Repatha SureClick 140 mg/mL pen injector 140 mg subcut Q2W 90 Days Qty: 7 3RF famotidine 40 mg tablet 40 mg PO BEDTIME Qty: 30 3RF sennosides [Natural Senna Laxative] 8.6 mg tablet 8.6 mg PO BEDTIME Qty: 30 3RF amlodipine 10 mg tablet 10 mg PO DAILY Qty: 60 3RF sumatriptan succinate 50 mg tablet 50 mg PO Q2-4H PRN (Reason: migraine headache) Qty: 10 0RF Rx Instructions: do not exceed 4 doses per 24 hrs tramadol 50 mg Tablet 50 mg PO BID PRN (Reason: Pain) albuterol sulfate 90 mcg/actuation HFA aerosol inhaler 1 inh inhalation QID PRN (Reason: shortness of breath or wheezing) Qty: 8.5 0RF prednisone 20 mg tablet 40 mg PO DAILY Qty: 10 0RF azithromycin [Zithromax Z-Jan] 250 mg tablet See Rx Instructions .ROUTE .COMPLEX Qty: 6 0RF Rx Instructions: take 500 mg today (day 1), then 250 mg for 4 days (days 2-5) benzonatate 100 mg capsule 100 mg PO TID PRN (Reason: cough) Qty: 30 0RF Mucinex 1,200 mg tablet extended release 12hr 1,200 mg PO BID Qty: 14 0RF albuterol sulfate 90 mcg/actuation aerosol powdr breath activated 1 inh inhalation Q4-6H PRN (Reason: Gastric Reflux) lorazepam [Ativan] 2 mg tablet 2 mg PO BEDTIME PRN (Reason: Anxiety) Flovent HFA 110 mcg/actuation HFA aerosol inhaler 1 puff inhalation BID zolpidem [Ambien] 10 mg tablet 5 mg PO BEDTIME PRN (Reason: Anxiety) aspirin [Adult Low Dose Aspirin] 81 mg tablet,delayed release (DR/EC) 81 mg PO DAILY methocarbamol 500 mg tablet 500 mg PO QID PRN (Reason: Muscle Spasm) pantoprazole [Protonix] 40 mg tablet,delayed release (DR/EC) 40 mg PO DAILY docusate sodium [Colace] 100 mg capsule 100 mg PO DAILY PRN (Reason: Constipation) (DME) CPAP Machine/Device Device See Rx Instructions .ROUTE .MEDSUPPLY Qty: 1 Rx Instructions: As directed Tab-A-Colton Multivitamin w-iron 15 mg iron- 400 mcg tablet 1 tab PO DAILY duloxetine 60 mg capsule,delayed release(DR/EC) 60 mg PO DAILY fluticasone propionate 50 mcg/actuation spray,suspension 2 spray intranasal DAILY lisinopril 5 mg tablet 5 mg PO DAILY cetirizine 10 mg tablet 10 mg PO DAILY polyethylene glycol 3350 [Miralax] 17 gram powder in packet 17 g PO DAILY Qty: 30 5RF Spiriva Respimat 1.25 mcg/actuation mist 2 puff PO DAILY Anoro Ellipta 62.5-25 mcg/actuation blister with device 1 inh inhalation DAILY Qty: 60 11RF Trelegy Ellipta 200-62.5-25 mcg blister with device 1 inh inhalation DAILY 30 Days Qty: 60 12RF Referrals: Ava Yap DO [Primary Care Provider] - (if not better) Print Language: Irish
[2021-12-25 01:24] LABS: MANUAL DIFF FLAG NO
[2021-12-25 01:50] LABS: Basophils Percent Auto 0.2 % (0-2); Eosinophils Absolute Auto 0.1 X10*3/uL (0.0-0.4); Eosinophils Percent Auto 0.6 % (0-4); Hematocrit 39.1 % (37.0-47.0); Hemoglobin 13.2 g/dl (12.0-16.0); Imm Gran Abs Auto 0.02 X10*3/uL (0.00-0.03); Imm Gran Pct Auto 0.2 % (0.0-0.4); Lymphocytes Absolute Auto 3.9 X10*3/uL (1.2-4.9); Lymphocytes Percent Auto 47.8 % (20-40); Mean Corpuscular HGB Conc 33.8 g/dl (31.0-35.0); Mean Corpuscular Hemoglobin 30.5 pg (27.0-33.0); Mean Corpuscular Volume 90.3 fL (80.0-98.0); Mean Platelet Volume 10.9 fL (9.4-12.3); Monocytes Absolute Auto 0.8 X10*3/uL (0.1-1.2); Monocytes Percent Auto 10.1 % (2-11); Neutrophils Absolute Auto 3.3 x10*3/uL (2.0-8.3); Neutrophils Percent Auto 41.1 % (45-73); Platelet Count 260 X10*3/uL (160-400); Red Blood Count 4.33 X10*6/uL (4.20-5.50); Red Cell Distribution Width 13.1 % (11.0-16.0); White Blood Count 8.1 X10*3/uL (4.8-10.8)
[2021-12-25 01:51] LABS: Anion Gap 12 (12-20); Blood Urea Nitrogen 13 mg/dL (9-16); Calcium 9.8 mg/dL (8.4-10.2); Carbon Dioxide 24 mmol/L (22-29); Chloride 106 mmol/L (96-108); Creatinine Clr Calc Pharmacy 88.1; Estimated Glomerular Filt Rate > 60; Glucose Random 107 mg/dL (60-115); Potassium 3.9 mmol/L (3.3-5.1); Sodium 138 mmol/L (135-145)
[2021-12-25] MEDS: LORazepam 1 MG TABLET PO (01:55)
[2021-12-25 01:56] LABS: Troponin-I High Sensitivity < 3.5 ng/L (<3.5-17.0)
[2021-12-25 02:03] LABS: Prothrombin Time 11.2 SEC (10.0-13.1)
[2021-12-25 02:12] LABS: D Dimer High Sensitivity < 150 NG/ML
[2021-12-25 04:17] VITALS: BP 126/62; PULSE 83; RESP 19; O2SAT 96
[2021-12-25 04:38] LABS: Troponin-I High Sensitivity < 3.5 ng/L (<3.5-17.0)
== END 2021-12-25 04:53 | disposition home or self-care (01) ==
PROVIDERS: Emergency Provider Emergency Medicine; PCP Family Medicine
DX: R07.89 Other chest pain (principal); I10 Essential (primary) hypertension; E78.5 Hyperlipidemia, unspecified; Z79.02 Long term (current) use of antithrombotics/antiplatelets; Z79.82 Long term (current) use of aspirin
CPT/HCPCS: 36415; 71045; 80048; 84484; 85025; 85379; 85610; 93005; 99283; 99284

== ENCOUNTER → 2022-01-06 13:25 | Outpatient (BNVA) | payer MEDICAID, SELFPAY | PROVIDERS: PCP Family Medicine; Visit Provider Internal Medicine Cardiovascular Disease | DX: Z01.810 Encounter for preprocedural cardiovascular examination (principal); I10 Essential (primary) hypertension; E78.5 Hyperlipidemia, unspecified | CPT/HCPCS: 99212 ==

== ENCOUNTER 2022-01-07 21:05 | Emergency (ER) | payer MEDICAID, SELFPAY ==
--- NOTE | ~2022-01-07 | US_ITS ---
EXAMINATION: US PELVIS CLINICAL INFORMATION: Right ovarian cyst, rule out torsion COMPARISON: CT from earlier today, ultrasound 01/13/2021 TECHNIQUE: Ultrasound of the pelvis is performed using both transabdominal and transvaginal transducers along with Doppler. Transvaginal imaging is performed due to inadequate visualization transabdominally. FINDINGS: The uterus measures 10.9 cm in length and 7.0 x 6.7 cm in AP and transverse dimensions. Mass within the right aspect of the uterus measures 6.3 x 5.6 x 5.3 cm, most consistent with a fibroid. There is an irregularly-shaped hypoechoic region in the left aspect of the uterus without appreciable internal flow, of uncertain etiology. Nabothian cysts are noted. The right ovary measures 9.2 x 8.0 x 8.9 cm. There is a right ovarian cyst measuring 8.5 x 7.4 x 8.0 cm which contains an internal septation measuring 0.2 cm in thickness. The left ovary is only visualized on transabdominal imaging, measuring 2.8 x 1.9 x 1.7 cm. Doppler evaluation demonstrates arterial and venous waveforms in both ovaries. No free fluid is seen. US/US pelvic and transvaginal IMPRESSION: 1. Redemonstrated right ovarian cyst measuring up to 8.5 cm, increased from prior ultrasound of 01/13/2021. Internal septation is noted measuring 0.2 cm in thickness. Low-grade cystic neoplasm is a possibility; recommend gynecology consult and pelvic MRI if clinically warranted 2. No specific findings for ovarian torsion. 3. Right-sided uterine fibroid measuring up to 6.3 cm. Irregularly-shaped hypoechoic region in the left aspect of the uterus is of uncertain etiology, and this may also be further assessed with MRI.
--- NOTE | ~2022-01-07 | US_ITS ---
EXAMINATION: US PELVIS CLINICAL INFORMATION: Right ovarian cyst, rule out torsion COMPARISON: CT from earlier today, ultrasound 01/13/2021 TECHNIQUE: Ultrasound of the pelvis is performed using both transabdominal and transvaginal transducers along with Doppler. Transvaginal imaging is performed due to inadequate visualization transabdominally. FINDINGS: The uterus measures 10.9 cm in length and 7.0 x 6.7 cm in AP and transverse dimensions. Mass within the right aspect of the uterus measures 6.3 x 5.6 x 5.3 cm, most consistent with a fibroid. There is an irregularly-shaped hypoechoic region in the left aspect of the uterus without appreciable internal flow, of uncertain etiology. Nabothian cysts are noted. The right ovary measures 9.2 x 8.0 x 8.9 cm. There is a right ovarian cyst measuring 8.5 x 7.4 x 8.0 cm which contains an internal septation measuring 0.2 cm in thickness. The left ovary is only visualized on transabdominal imaging, measuring 2.8 x 1.9 x 1.7 cm. Doppler evaluation demonstrates arterial and venous waveforms in both ovaries. No free fluid is seen. US/US pelvic ovarian doppler IMPRESSION: 1. Redemonstrated right ovarian cyst measuring up to 8.5 cm, increased from prior ultrasound of 01/13/2021. Internal septation is noted measuring 0.2 cm in thickness. Low-grade cystic neoplasm is a possibility; recommend gynecology consult and pelvic MRI if clinically warranted 2. No specific findings for ovarian torsion. 3. Right-sided uterine fibroid measuring up to 6.3 cm. Irregularly-shaped hypoechoic region in the left aspect of the uterus is of uncertain etiology, and this may also be further assessed with MRI.
--- NOTE | ~2022-01-07 | CT_ITS ---
EXAMINATION: CT ABDOMEN AND PELVIS WITHOUT CONTRAST CLINICAL INFORMATION: Bilateral lower quadrant pain COMPARISON: 10/22/2020 TECHNIQUE: Multidetector volumetric imaging was performed from the superior aspect of the liver through the pubic symphysis. Sagittal and coronal reformatted images were obtained on the technologist's workstation. This CT examination was performed using dose optimization techniques as appropriate, variously including the following: *Automated exposure control *Adjustment of mA and/or kV according to patient size (this includes techniques or standardized protocols for targeted exams where dose is matched to indication/reason for exam; i.e. extremities or head) *Use of iterative reconstruction technique DLP: 808 mGy-cm FINDINGS: LUNG BASES: Scattered calcified granulomas noted. LIVER, GALLBLADDER, AND BILIARY TREE: The liver appears mildly enlarged and demonstrates mild hypoattenuation suspicious for a degree steatosis with some sparing near the gallbladder fossa. No focal hepatic lesion or biliary ductal dilatation is identified. Gallbladder appears somewhat contracted. PANCREAS: Unremarkable. SPLEEN: Unremarkable. ADRENAL GLANDS: Unremarkable. KIDNEYS AND URETERS: Somewhat lobulated contour of the kidneys is similar to prior. No hydronephrosis, hydroureter, or calculi seen. No perinephric stranding. BLADDER: Mildly distended and grossly unremarkable. GASTROINTESTINAL TRACT: No evidence of bowel obstruction. No significant bowel wall thickening is seen. No findings to suggest appendicitis. No free fluid or free air is seen. ABDOMINAL WALL: No significant hernia is appreciated. LYMPH NODES: Normal. VASCULAR: Mild scattered atherosclerotic calcifications are present. PELVIC VISCERA: Redemonstrated mildly hypoattenuating mass along the right aspect of the uterus measuring up to approximately 6.1 cm, favoring a fibroid. Fluid density adnexal structure near the midline measures approximately 10.7 x 8.1 cm in the axial plane, versus 7.8 x 5.3 cm on 10/22/2020. OSSEOUS STRUCTURES: Scattered degenerative endplate changes are present in the spine. CT/CT abdomen pelvis wo con IMPRESSION: 1. Interval increase in size of a cystic adnexal lesion, now measuring up to 10.7 cm versus 7.8 cm on 10/22/2020. Overall appearance raises concern for low-grade cystic neoplasm. Recommend gynecology consult and consider MRI without and with IV contrast if clinically warranted. 2. Redemonstrated uterine mass favoring a fibroid.
[2022-01-07 21:13] VITALS: BP 156/77; PULSE 98; RESP 18; TEMP 36; O2SAT 96; BMI 50.8
[2022-01-07 22:04] LABS: MANUAL DIFF FLAG NO
[2022-01-07 22:05] LABS: Appearance Urine CLEAR; Basophils Percent Auto 0.1 % (0-2); Color Urine YELLOW; Eosinophils Absolute Auto 0.1 X10*3/uL (0.0-0.4); Eosinophils Percent Auto 0.6 % (0-4); Glucose Urine UA NEG (NEG); Hematocrit 38.8 % (37.0-47.0); Hemoglobin 12.9 g/dl (12.0-16.0); Imm Gran Abs Auto 0.01 X10*3/uL (0.00-0.03); Imm Gran Pct Auto 0.1 % (0.0-0.4); Leukocyte Esterase Urine NEG (NEG); Lymphocytes Percent Auto 38.6 % (20-40); Mean Corpuscular HGB Conc 33.2 g/dl (31.0-35.0); Mean Corpuscular Hemoglobin 30.3 pg (27.0-33.0); Mean Corpuscular Volume 91.1 fL (80.0-98.0); Mean Platelet Volume 10.7 fL (9.4-12.3); Monocytes Absolute Auto 0.7 X10*3/uL (0.1-1.2); Monocytes Percent Auto 8.8 % (2-11); Neutrophils Percent Auto 51.8 % (45-73); Nitrite Urine NEG (NEG); PH 5.5 (5.0-8.0); Platelet Count 222 X10*3/uL (160-400); Red Blood Count 4.26 X10*6/uL (4.20-5.50); Red Cell Distribution Width 13.1 % (11.0-16.0); Specific Gravity - Urine 1.025 (1.005-1.025); Urine Blood NEG (NEG); Urine Ketones NEG (NEG); Urine Protein NEG (NEG-TRACE); White Blood Count 7.7 X10*3/uL (4.8-10.8)
[2022-01-07 22:26] LABS: Alanine Aminotransferase 27 U/L (0-31); Albumin Level 4.7 g/dL (3.5-5.0); Alkaline Phosphatase 86 U/L (39-117); Anion Gap 13 (12-20); Aspartate Amino Transferase 20 U/L (5-31); Bilirubin Direct < 0.2 mg/dL (0.0-0.5); Bilirubin Total 0.3 mg/dL (0.0-1.0); Blood Urea Nitrogen 13 mg/dL (9-16); Carbon Dioxide 25 mmol/L (22-29); Chloride 107 mmol/L (96-108); Creatinine Clr Calc Pharmacy 87.9; Estimated Glomerular Filt Rate > 60; Glucose Random 113 mg/dL (60-115); Potassium 3.7 mmol/L (3.3-5.1); Sodium 141 mmol/L (135-145); Total Protein 7.7 g/dL (6.5-8.0)
--- NOTE | 2022-01-07 23:57 | ED_ITS ---
HPI - Abdominal Pain General Chief Complaint: Abdominal Pain Stated Complaint: abdominal pain Time Seen by Provider: 01/07/22 23:44 Source: patient Mode of arrival: ambulatory Limitations: no limitations History of Present Illness HPI narrative: Patient comes to the emergency room complaining 1 day of bladder spasms with radiation to the right flank. Patient denies UTI or hematuria. Patient denies fever chills. Prior to arrival, patient took tramadol without any relief. Related Data Home Medications Medication Instructions Recorded Confirmed albuterol sulfate 90 mcg/actuation 1 inh inhalation Q4-6H PRN Gastric 03/26/20 01/06/22 breath activated powder inhaler Reflux docusate sodium 100 mg capsule 100 mg PO DAILY PRN Constipation 03/26/20 01/06/22 (Colace) fluticasone propionate 110 1 puff inhalation BID 03/26/20 01/06/22 mcg/actuation HFA aerosol inhaler (Flovent HFA) lorazepam 2 mg tablet (Ativan) 2 mg PO BEDTIME PRN Anxiety 03/26/20 01/06/22 methocarbamol 500 mg tablet 500 mg PO QID PRN Muscle Spasm 03/26/20 01/06/22 pantoprazole 40 mg tablet,delayed 40 mg PO DAILY 03/26/20 01/06/22 release (Protonix) zolpidem 10 mg tablet (Ambien) 5 mg PO BEDTIME PRN Anxiety 03/26/20 01/06/22 tramadol 50 mg tablet 50 mg PO BID PRN Pain 05/20/20 01/06/22 CPAP (CPAP Machine/Device) #1 ea 12/24/20 01/06/22 cetirizine 10 mg tablet 10 mg PO DAILY 07/19/21 01/06/22 duloxetine 60 mg capsule,delayed 60 mg PO DAILY 07/19/21 01/06/22 release fluticasone propionate 50 2 spray intranasal DAILY 07/19/21 01/06/22 mcg/actuation nasal spray,suspension lisinopril 5 mg tablet 5 mg PO DAILY 07/19/21 01/06/22 multivitamin-iron sulfate 15 1 tab PO DAILY 07/19/21 01/06/22 mg-folic acid 400 mcg tablet (Tab-A-Colton Multivitamin w-iron) tiotropium bromide 1.25 2 puff PO DAILY 08/27/21 01/06/22 mcg/actuation mist for inhalation (Spiriva Respimat) Previous Rx's Medication Instructions Recorded sumatriptan succinate 50 mg tablet 50 mg PO Q2-4H PRN migraine 11/05/20 headache #10 tabs albuterol sulfate 90 mcg/actuation 1 inh inhalation QID PRN shortness 12/28/20 aerosol inhaler of breath or wheezing #8.5 grams fenofibrate 54 mg tablet 54 mg PO DAILY 90 days #90 tabs 05/27/21 polyethylene glycol 3350 17 gram 17 g PO DAILY #30 ea 07/19/21 oral powder packet (Miralax) cholecalciferol (vitamin D3) 50 50 mcg PO DAILY #30 tabs 07/26/21 mcg (2,000 unit) tablet ezetimibe 10 mg tablet 10 mg PO DAILY 90 days #90 tabs 08/23/21 rosuvastatin 40 mg tablet (Crestor) 40 mg PO DAILY 90 days #90 tabs 10/19/21 famotidine 40 mg tablet 40 mg PO BEDTIME #30 tabs 11/17/21 sennosides 8.6 mg tablet (Natural 8.6 mg PO BEDTIME constipation #30 11/17/21 Senna Laxative) tabs fluticasone fur. 200 mcg-umeclid 1 inh inhalation DAILY 30 days #60 11/19/21 62.5 mcg-vilant 25 mcg ea inhalat.powder (Trelegy Ellipta) umeclidinium 62.5 mcg-vilanterol 1 inh inhalation DAILY #60 ea 11/19/21 25 mcg/actuation powdr for inhalation (Anoro Ellipta) amlodipine 10 mg tablet 10 mg PO DAILY #60 tabs 11/25/21 azithromycin 250 mg tablet See Rx Instructions PO .COMPLEX #6 12/13/21 (Zithromax Z-Jan) tabs benzonatate 100 mg capsule 100 mg PO TID PRN cough #30 caps 12/13/21 guaifenesin 1,200 mg tablet, 1,200 mg PO BID #14 tabs 12/13/21 extended release 12 hr (Mucinex) prednisone 20 mg tablet 40 mg PO DAILY #10 tabs 12/13/21 evolocumab 140 mg/mL subcutaneous 140 mg subcut Q2W 90 days #7 mL 12/31/21 pen injector (Repatha SureHarryick) ketorolac 10 mg tablet 10 mg PO BID PRN pain #7 tabs 01/08/22 Allergies Allergy/AdvReac Type Severity Reaction Status Date / Time loratadine [From CLARITIN] Allergy Mild CHILLS AND Verified 01/06/22 13:43 DIFF BREATHING Review of Systems Review of Systems Constitutional : No Weight loss, No Fever, No Chills, No Night Sweats, No Fatigue, No Malaise ENT/Mouth : No Hearing loss, No Ear Pain, No Nasal Congestion, No Sinus Pain, No Hoarseness, No sore throat, No Rhinorrhea, No Swallowing Difficulty Eyes: No Eye Pain, No Swelling, No Redness, No Foreign Body, No Discharge, No Vision Changes Cardiovascular : No Chest Pain, No SOB, No Dyspnea on Exertion, No Orthopnea, No Edema, No Palpitations Respiratory : No Cough, No Sputum, No Wheezing, No Smoke Exposure, No Dyspnea Gastrointestinal : No Nausea, No Vomiting, No Diarrhea, No Constipation, No abdominal Pain, No Hematochezia, No Melena Genitourinary : Complaining of bladder spasms radiating towards the right flank, no irregular bleeding, No Dysuria, No Urinary Frequency, No Hematuria, No Urinary Incontinence, No Urgency, No Flank Pain, No Urinary Flow Changes, No Hesitancy Musculoskeletal : No joint pain, No Myalgias, No Joint Swelling Skin : No Skin Lesions, No rash Neuro : No Weakness, No Numbness, No Paresthesias, No Loss of Consciousness, No Dizziness, No Headache Psych : No Anxiety/Panic, No Depression, No SI/HI/AH/VH, No Social Issues, Heme/Lymph: No Bruising, No Bleeding,No Lymphadenopathy Endocrine : No Polyuria, No Polydipsia, No Temperature Intolerance [facility] Past Medical History Medical History Acid reflux Asthma-COPD overlap syndrome Chronic restrictive lung disease Coronary artery disease Epigastric pain Fatty liver Fibromyalgia Gall bladder polyp Hyperlipidemia Hypertension Obesity (BMI 30-39.9) NAM treated with BiPAP Pre-op chest exam Sleep apnea Surgical History History of cardiac cath History of endometrial ablation History of esophagogastroduodenoscopy Hx of tubal ligation Family History Family History Paternal Grandfather No problems noted. Father History of cancer Lung cancer Mother Heart disease Social History Social History Household Members: Significant Other and Children Housing: Apartment Do you presently have visiting nurse or other home services: No Alcohol intake: never Patient Tobacco Use Status: Former Tobacco user Tobacco use type: Cigarette Years Smoked: 5 years Second Hand Smoke Exposure: No Advance Directives: No Advance Directives Information Provided: Yes service: No Current occupational status: disabled Physical Exam ED Vital Signs: Vital Signs - 24 hr 01/07/22 21:13 Temperature 96.8 F Pulse Rate 98 Respiratory Rate 18 Blood Pressure 156/77 H Pulse Oximetry 96 Oxygen Delivery Method Room Air BMI result Body Mass Index 50.8 Const Other: Appearance: Alert. Oriented X3. No acute distress. Eyes: Pupils equal, round and reactive to light. ENT: Pharynx normal. Neck: Normal inspection. Neck supple. No lymph nodes noted. No crepitus CVS: Normal heart rate and rhythm. Pulses normal. Normal S1 and S2 Respiratory: No respiratory distress. Breath sounds normal. No Wheezing. No rales Abdomen: Soft , seems distended, having suprapubic discomfort on deep palpation. Skin: Skin warm and dry. Normal skin color. Normal skin turgor. Extremities: No lower extremity edema. No Lacerations. No Rash Neuro: Oriented X 3. No motor deficit. No sensory deficit. Moving all extremities. No slurred speech. CN 2 through 12 grossly intact Psych: calm, cooperative, normal affect Course Course Course Narrative: All of patient's labs are normal, urinalysis is completely clean. Will go ahead and order a CT scan. I discussed the CT finding with the patient, the adnexal cyst has grown in size. We will order an ultrasound to rule out ovarian torsion. Patient states that approximately 1 week ago she was supposed to get surgery at [facility]. However, since she had bronchitis her surgery was postponed. I discussed with the patient that she is at high risk of ovarian torsion due to the size of the masses. Patient's ultrasound is negative for torsion. However, I discussed with the patient that if she experiences any severe pain she needs to return to the emergency room immediately. Patient states that she will follow-up with her primary care physician, OBGYN and school traffic guard to expedite the process, since she is concerned that the pain is getting much worse, and now is concerned that an ovarian torsion may occur MDM - Abdominal Pain Lab Data Result diagrams: 01/07/22 21:59 01/07/22 21:59 Labs: Lab Results 01/07/22 01/07/22 01/07/22 Range/Units 21:59 21:59 21:59 WBC 7.7 (4.8-10.8) X10*3/uL RBC 4.26 (4.20-5.50) X10*6/uL Hgb 12.9 (12.0-16.0) g/dl Hct 38.8 (37.0-47.0) % MCV 91.1 (80.0-98.0) fL MCH 30.3 (27.0-33.0) pg MCHC 33.2 (31.0-35.0) g/dl RDW 13.1 (11.0-16.0) % Plt Count 222 (160-400) X10*3/uL MPV 10.7 (9.4-12.3) fL Immature Gran % (Auto) 0.1 (0.0-0.4) % Neut % (Auto) 51.8 (45-73) % Lymph % (Auto) 38.6 (20-40) % Dickenson % (Auto) 8.8 (2-11) % Eos % (Auto) 0.6 (0-4) % Baso % (Auto) 0.1 (0-2) % Lymph # (Auto) 3.0 (1.2-4.9) X10*3/uL Dickenson # (Auto) 0.7 (0.1-1.2) X10*3/uL Eos # (Auto) 0.1 (0.0-0.4) X10*3/uL Baso # (Auto) 0.0 (0.0-0.2) X10*3/uL Abs Immat Gran (auto) 0.01 (0.00-0.03) X10*3/uL Absolute Neuts (auto) 4.0 (2.0-8.3) x10*3/uL Absolute Nucleated RBC 0.000 (0.0-0.012) X10*3/uL Nucleated RBC % (auto) 0.0 (0.0-0.2) /100WBC Sodium 141 (135-145) mmol/L Potassium 3.7 (3.3-5.1) mmol/L Chloride 107 (96-108) mmol/L Carbon Dioxide 25 (22-29) mmol/L Anion Gap 13 (12-20) BUN 13 (9-16) mg/dL Creatinine 0.90 (0.5-1.4) mg/dL Estim Creat Clear Calc 87.9 Estimated GFR > 60 Random Glucose 113 (60-115) mg/dL Calcium 9.0 D (8.4-10.2) mg/dL Total Bilirubin 0.3 (0.0-1.0) mg/dL Direct Bilirubin < 0.2 (0.0-0.5) mg/dL AST 20 (5-31) U/L ALT 27 (0-31) U/L Alkaline Phosphatase 86 (39-117) U/L Total Protein 7.7 (6.5-8.0) g/dL Albumin 4.7 (3.5-5.0) g/dL Urine Color YELLOW Urine Appearance CLEAR Urine pH 5.5 (5.0-8.0) Ur Specific Starkweather 1.025 (1.005-1.025) Urine Protein NEG (NEG-TRACE) MG/DL Urine Glucose (UA) NEG (NEG) MG/DL Urine Ketones NEG (NEG) MG/DL Urine Blood NEG (NEG) Urine Nitrite NEG (NEG) Ur Leukocyte Esterase NEG (NEG) Imaging Data CT scan - abdomen: Radiologist's impression: FINDINGS: LUNG BASES: Scattered calcified granulomas noted.? LIVER, GALLBLADDER, AND BILIARY TREE: The liver appears mildly enlarged and demonstrates mild hypoattenuation suspicious for a degree steatosis with some sparing near the gallbladder fossa. No focal hepatic lesion or biliary ductal dilatation is identified. Gallbladder appears somewhat contracted. PANCREAS: Unremarkable.? SPLEEN: Unremarkable.? ADRENAL GLANDS: Unremarkable.? KIDNEYS AND URETERS: Somewhat lobulated contour of the kidneys is similar to prior. No hydronephrosis, hydroureter, or calculi seen. No perinephric stranding. BLADDER: Mildly distended and grossly unremarkable.? GASTROINTESTINAL TRACT: No evidence of bowel obstruction. No significant bowel wall thickening is seen. No findings to suggest appendicitis. No free fluid or free air is seen.? ABDOMINAL WALL: No significant hernia is appreciated.? LYMPH NODES: Normal. VASCULAR: Mild scattered atherosclerotic calcifications are present. PELVIC VISCERA: Redemonstrated mildly hypoattenuating mass along the right aspect of the uterus measuring up to approximately 6.1 cm, favoring a fibroid. Fluid density adnexal structure near the midline measures approximately 10.7 x 8.1 cm in the axial plane, versus 7.8 x 5.3 cm on 10/22/2020. OSSEOUS STRUCTURES: Scattered degenerative endplate changes are present in the spine.? CT/CT abdomen pelvis wo con IMPRESSION: 1.? Interval increase in size of a cystic adnexal lesion, now measuring up to 10.7 cm versus 7.8 cm on 10/22/2020. Overall appearance raises concern for low-grade cystic neoplasm. Recommend gynecology consult and consider MRI without and with IV contrast if clinically warranted. 2.? Redemonstrated uterine mass favoring a fibroid. US - abdomen: Radiologist's impression: FINDINGS: The uterus measures 10.9 cm in length and 7.0 x 6.7 cm in AP and transverse dimensions. Mass within the right aspect of the uterus measures 6.3 x 5.6 x 5.3 cm, most consistent with a fibroid. There is an irregularly-shaped hypoechoic region in the left aspect of the uterus without appreciable internal flow, of uncertain etiology. Nabothian cysts are noted. The right ovary measures 9.2 x 8.0 x 8.9 cm. There is a right ovarian cyst measuring 8.5 x 7.4 x 8.0 cm which contains an internal septation measuring 0.2 cm in thickness. The left ovary is only visualized on transabdominal imaging, measuring 2.8 x 1.9 x 1.7 cm. Doppler evaluation demonstrates arterial and venous waveforms in both ovaries. No free fluid is seen. US/US pelvic and transvaginal IMPRESSION: 1.? Redemonstrated right ovarian cyst measuring up to 8.5 cm, increased from prior ultrasound of 01/13/2021. Internal septation is noted measuring 0.2 cm in thickness. Low-grade cystic neoplasm is a possibility; recommend gynecology consult and pelvic MRI if clinically warranted 2.? No specific findings for ovarian torsion. 3.? Right-sided uterine fibroid measuring up to 6.3 cm. Irregularly-shaped hypoechoic region in the left aspect of the uterus is of uncertain etiology, and this may also be further assessed with MRI. Discharge Plan Discharge Clinical Impression: Pelvic pain Patient Disposition: Home, Self-Care Instructions: Pelvic Pain in Women (ED) Additional Instructions: Please follow-up with your OBGYN, school traffic guard, tanning wheel filler and primary care physician tomorrow. You need to be seen as soon as possible for medical cleara nce for your surgery. If you experience any severe abdominal pain, you need to return to the emergency room. Your ultrasound today is negative for ovarian torsion. If you have any worsening or new symptoms, please return to the emergency room or call 911 Prescriptions: New ketorolac 10 mg tablet 10 mg PO BID PRN (Reason: pain) Qty: 7 0RF Rx Instructions: Do not use these medications with Aleve, NSAIDs, only use Tylenol or tramadol for breakthrough pain No Action fenofibrate 54 mg tablet 54 mg PO DAILY 90 Days Qty: 90 3RF cholecalciferol (vitamin D3) 50 mcg (2,000 unit) tablet 50 mcg PO DAILY Qty: 30 6RF ezetimibe 10 mg tablet 10 mg PO DAILY 90 Days Qty: 90 3RF rosuvastatin [Crestor] 40 mg tablet 40 mg PO DAILY 90 Days Qty: 90 1RF famotidine 40 mg tablet 40 mg PO BEDTIME Qty: 30 3RF sennosides [Natural Senna Laxative] 8.6 mg tablet 8.6 mg PO BEDTIME Qty: 30 3RF amlodipine 10 mg tablet 10 mg PO DAILY Qty: 60 3RF Repatha SureClick 140 mg/mL pen injector 140 mg subcut Q2W 90 Days Qty: 7 3RF sumatriptan succinate 50 mg tablet 50 mg PO Q2-4H PRN (Reason: migraine headache) Qty: 10 0RF Rx Instructions: do not exceed 4 doses per 24 hrs tramadol 50 mg Tablet 50 mg PO BID PRN (Reason: Pain) albuterol sulfate 90 mcg/actuation HFA aerosol inhaler 1 inh inhalation QID PRN (Reason: shortness of breath or wheezing) Qty: 8.5 0RF prednisone 20 mg tablet 40 mg PO DAILY Qty: 10 0RF azithromycin [Zithromax Z-Jan] 250 mg tablet See Rx Instructions .ROUTE .COMPLEX Qty: 6 0RF Rx Instructions: take 500 mg today (day 1), then 250 mg for 4 days (days 2-5) benzonatate 100 mg capsule 100 mg PO TID PRN (Reason: cough) Qty: 30 0RF Mucinex 1,200 mg tablet extended release 12hr 1,200 mg PO BID Qty: 14 0RF albuterol sulfate 90 mcg/actuation aerosol powdr breath activated 1 inh inhalation Q4-6H PRN (Reason: Gastric Reflux) lorazepam [Ativan] 2 mg tablet 2 mg PO BEDTIME PRN (Reason: Anxiety) Flovent HFA 110 mcg/actuation HFA aerosol inhaler 1 puff inhalation BID zolpidem [Ambien] 10 mg tablet 5 mg PO BEDTIME PRN (Reason: Anxiety) methocarbamol 500 mg tablet 500 mg PO QID PRN (Reason: Muscle Spasm) pantoprazole [Protonix] 40 mg tablet,delayed release (DR/EC) 40 mg PO DAILY docusate sodium [Colace] 100 mg capsule 100 mg PO DAILY PRN (Reason: Constipation) (DME) CPAP Machine/Device Device See Rx Instructions .ROUTE .MEDSUPPLY Qty: 1 Rx Instructions: As directed Tab-A-Colton Multivitamin w-iron 15 mg iron- 400 mcg tablet 1 tab PO DAILY duloxetine 60 mg capsule,delayed release(DR/EC) 60 mg PO DAILY fluticasone propionate 50 mcg/actuation spray,suspension 2 spray intranasal DAILY lisinopril 5 mg tablet 5 mg PO DAILY cetirizine 10 mg tablet 10 mg PO DAILY polyethylene glycol 3350 [Miralax] 17 gram powder in packet 17 g PO DAILY Qty: 30 5RF Spiriva Respimat 1.25 mcg/actuation mist 2 puff PO DAILY Anoro Ellipta 62.5-25 mcg/actuation blister with device 1 inh inhalation DAILY Qty: 60 11RF Trelegy Ellipta 200-62.5-25 mcg blister with device 1 inh inhalation DAILY 30 Days Qty: 60 12RF
[2022-01-08] MEDS: Ketorolac Tromethamine 60 MG/2 ML VIAL IM (00:39)
== END 2022-01-08 04:00 | disposition home or self-care (01) ==
PROVIDERS: Emergency Provider Emergency Medicine
DX: R10.2 Pelvic and perineal pain (principal); E66.9 Obesity, unspecified; Z68.43 Body mass index [BMI] 50.0-59.9, adult; E78.5 Hyperlipidemia, unspecified; I10 Essential (primary) hypertension; Z87.891 Personal history of nicotine dependence; Z79.899 Other long term (current) drug therapy; Z79.02 Long term (current) use of antithrombotics/antiplatelets
CPT/HCPCS: 36415; 74176; 76830; 76856; 80053; 81003; 82248; 85025; 93975; 96372; 99284; J1885

== ENCOUNTER 2022-01-09 13:11 | Emergency (ER) | payer MEDICAID, SELFPAY ==
--- NOTE | ~2022-01-09 | US_ITS ---
EXAMINATION: US PELVIS COMPLETE US PELVIS ENDOVAGINAL WITH DOPPLER CLINICAL INFORMATION: Severe pelvic pain. Question torsion. Worse than yesterday COMPARISON: 01/08/2022 TECHNIQUE: Transabdominal and transvaginal images of the pelvis were obtained. Color and spectral Doppler evaluation of the ovaries was performed. FINDINGS: UTERUS: Anteverted. Normal size and contour, measuring 9.6 x 6.2 x 7.4 cm (cervix to fundus x AP x transverse). There is fluid in the endometrial canal. The endometrium is approximately 4 mm in double wall thickness. The cervical length was not documented. There is a 6.5 cm fundal myoma. There is an additional 1 cm uterine body myoma. RIGHT OVARY: The right ovary measures 9.1 x 7.8 x 8.0 cm in total including a 8.2 x 7.4 x 7.5 cm cyst with a single thin septation. No thick septations or mural nodularity seen. Venous spectral Doppler waveforms are identified along the periphery of the cyst. No arterial waveform documented. LEFT OVARY: Normal size and echogenicity measuring 2.5 x 1.5 x 1.7 cm. Normal arterial and venous spectral Doppler waveforms identified within the left ovary. FREE FLUID: No pelvic free fluid. US/US pelvic ovarian doppler IMPRESSION: Again seen is a 8.2 cm complex right ovarian cyst with a single thin septation. Recommend further evaluation with MRI of the pelvis with and without contrast or gynecologic consultation. Only venous Doppler waveforms are identified along the periphery of the cyst. No arterial waveform documented although this may be the for technical reasons. Myomatous uterus.
--- NOTE | ~2022-01-09 | US_ITS ---
EXAMINATION: US PELVIS COMPLETE US PELVIS ENDOVAGINAL WITH DOPPLER CLINICAL INFORMATION: Severe pelvic pain. Question torsion. Worse than yesterday COMPARISON: 01/08/2022 TECHNIQUE: Transabdominal and transvaginal images of the pelvis were obtained. Color and spectral Doppler evaluation of the ovaries was performed. FINDINGS: UTERUS: Anteverted. Normal size and contour, measuring 9.6 x 6.2 x 7.4 cm (cervix to fundus x AP x transverse). There is fluid in the endometrial canal. The endometrium is approximately 4 mm in double wall thickness. The cervical length was not documented. There is a 6.5 cm fundal myoma. There is an additional 1 cm uterine body myoma. RIGHT OVARY: The right ovary measures 9.1 x 7.8 x 8.0 cm in total including a 8.2 x 7.4 x 7.5 cm cyst with a single thin septation. No thick septations or mural nodularity seen. Venous spectral Doppler waveforms are identified along the periphery of the cyst. No arterial waveform documented. LEFT OVARY: Normal size and echogenicity measuring 2.5 x 1.5 x 1.7 cm. Normal arterial and venous spectral Doppler waveforms identified within the left ovary. FREE FLUID: No pelvic free fluid. US/US pelvic and transvaginal IMPRESSION: Again seen is a 8.2 cm complex right ovarian cyst with a single thin septation. Recommend further evaluation with MRI of the pelvis with and without contrast or gynecologic consultation. Only venous Doppler waveforms are identified along the periphery of the cyst. No arterial waveform documented although this may be the for technical reasons. Myomatous uterus.
[2022-01-09 13:19] VITALS: BP 143/83; PULSE 97; O2SAT 99
[2022-01-09 13:26] VITALS: BP 183/86; PULSE 112; RESP 16; TEMP 36.6; O2SAT 99; BMI 42.2
--- NOTE | 2022-01-09 20:36 | ED_ITS ---
HPI - Abdominal Pain General Chief Complaint: Abdominal Pain Stated Complaint: PELVIC PAIN X'S 1 DAY PER EMS Time Seen by Provider: 01/09/22 19:56 Source: patient, RN notes reviewed and old records reviewed Mode of arrival: EMS Limitations: no limitations History of Present Illness HPI narrative: This is a 51-year-old female, with a past medical history of ovarian cyst, asthma, hyperlipidemia, CAD, and fatty liver, who presents to the emergency department with complaints pelvic pain x 2-3 days. Patient was seen here on 01/07/2022 with similar complaints, the CT abdomen and pelvis showed a cystic adnexal lesion measuring 10.7 cm x 7.8 cm. She was discharged on Toradol and instructed to follow-up with her OBGYN provider. She was educated at that time that she is at high risk for ovarian torsion, the ultrasound at that time was negative for ovarian torsion. She denies any dysuria, hematuria, urinary urgency or frequency. She denies any fevers, chills, nausea, vomiting, or diarrhea, vaginal bleeding, abnormal vaginal discharge, black or bloody stools, diarrhea constipation, thoughts of STDs. No other complaints or concerns at this time. MD elicited complaint: abdominal pain Pertinent past history: other ( ovarian cyst) Onset (ago): day(s) Pain Consistency: constant Location: diffuse Severity: moderate Pain scale (0-10): 6 Quality: cramping Radiation: LUQ, RUQ, LLQ, RLQ, epigastric and suprapubic Migration to: no migration Exacerbating factors: nothing Relieving factors: nothing Associated symptoms: denies other symptoms Related Data Home Medications Medication Instructions Recorded Confirmed albuterol sulfate 90 mcg/actuation 1 inh inhalation Q4-6H PRN Gastric 03/26/20 01/06/22 breath activated powder inhaler Reflux docusate sodium 100 mg capsule 100 mg PO DAILY PRN Constipation 03/26/20 (Colace) fluticasone propionate 110 1 puff inhalation BID 03/26/20 01/06/22 mcg/actuation HFA aerosol inhaler (Flovent HFA) lorazepam 2 mg tablet (Ativan) 2 mg PO BEDTIME PRN Anxiety 03/26/20 01/06/22 methocarbamol 500 mg tablet 500 mg PO QID PRN Muscle Spasm 03/26/20 01/06/22 pantoprazole 40 mg tablet,delayed 40 mg PO DAILY 03/26/20 01/06/22 release (Protonix) zolpidem 10 mg tablet (Ambien) 5 mg PO BEDTIME PRN Anxiety 03/26/20 01/06/22 tramadol 50 mg tablet 50 mg PO BID PRN Pain 05/20/20 01/06/22 CPAP (CPAP Machine/Device) #1 ea 12/24/20 01/06/22 cetirizine 10 mg tablet 10 mg PO DAILY 07/19/21 01/06/22 duloxetine 60 mg capsule,delayed 60 mg PO DAILY 07/19/21 01/06/22 release fluticasone propionate 50 2 spray intranasal DAILY 07/19/21 01/06/22 mcg/actuation nasal spray,suspension lisinopril 5 mg tablet 5 mg PO DAILY 07/19/21 01/06/22 multivitamin-iron sulfate 15 1 tab PO DAILY 07/19/21 01/06/22 mg-folic acid 400 mcg tablet (Tab-A-Colton Multivitamin w-iron) tiotropium bromide 1.25 2 puff PO DAILY 08/27/21 01/06/22 mcg/actuation mist for inhalation (Spiriva Respimat) Previous Rx's Medication Instructions Recorded sumatriptan succinate 50 mg tablet 50 mg PO Q2-4H PRN migraine 11/05/20 headache #10 tabs albuterol sulfate 90 mcg/actuation 1 inh inhalation QID PRN shortness 12/28/20 aerosol inhaler of breath or wheezing #8.5 grams fenofibrate 54 mg tablet 54 mg PO DAILY 90 days #90 tabs 05/27/21 polyethylene glycol 3350 17 gram 17 g PO DAILY #30 ea 07/19/21 oral powder packet (Miralax) cholecalciferol (vitamin D3) 50 50 mcg PO DAILY #30 tabs 07/26/21 mcg (2,000 unit) tablet ezetimibe 10 mg tablet 10 mg PO DAILY 90 days #90 tabs 08/23/21 rosuvastatin 40 mg tablet (Crestor) 40 mg PO DAILY 90 days #90 tabs 10/19/21 famotidine 40 mg tablet 40 mg PO BEDTIME #30 tabs 11/17/21 sennosides 8.6 mg tablet (Natural 8.6 mg PO BEDTIME constipation #30 11/17/21 Senna Laxative) tabs fluticasone fur. 200 mcg-umeclid 1 inh inhalation DAILY 30 days #60 11/19/21 62.5 mcg-vilant 25 mcg ea inhalat.powder (Trelegy Ellipta) umeclidinium 62.5 mcg-vilanterol 1 inh inhalation DAILY #60 ea 11/19/21 25 mcg/actuation powdr for inhalation (Anoro Ellipta) amlodipine 10 mg tablet 10 mg PO DAILY #60 tabs 11/25/21 azithromycin 250 mg tablet See Rx Instructions PO .COMPLEX #6 12/13/21 (Zithromax Z-Jan) tabs benzonatate 100 mg capsule 100 mg PO TID PRN cough #30 caps 12/13/21 guaifenesin 1,200 mg tablet, 1,200 mg PO BID #14 tabs 12/13/21 extended release 12 hr (Mucinex) prednisone 20 mg tablet 40 mg PO DAILY #10 tabs 12/13/21 evolocumab 140 mg/mL subcutaneous 140 mg subcut Q2W 90 days #7 mL 12/31/21 pen injector (Repatha SureClick) ketorolac 10 mg tablet 10 mg PO BID PRN pain #7 tabs 01/08/22 Allergies Allergy/AdvReac Type Severity Reaction Status Date / Time loratadine [From CLARITIN] Allergy Mild CHILLS AND Verified 01/06/22 13:43 DIFF BREATHING Review of Systems Review of Systems Constitutional : No Weight loss, No Fever, No Chills, No Night Sweats, No Fatigue, No Malaise ENT/Mouth : No Hearing loss, No Ear Pain, No Nasal Congestion, No Sinus Pain, No Hoarseness, No sore throat, No Rhinorrhea, No Swallowing Difficulty Eyes: No Eye Pain, No Swelling, No Redness, No Foreign Body, No Discharge, No Vision Changes Cardiovascular : No Chest Pain, No SOB, No Dyspnea on Exertion, No Orthopnea, No Edema, No Palpitations Respiratory : No Cough, No Sputum, No Wheezing, No Smoke Exposure, No Dyspnea Gastrointestinal : +Abdominal pain, No Nausea, No Vomiting, No Diarrhea, No Constipation, No Hematochezia, No Melena Genitourinary : no irregular bleeding, No Dysuria, No Urinary Frequency, No Hematuria, No Urinary Incontinence, No Urgency, No Flank Pain, No Urinary Flow Changes, No Hesitancy Musculoskeletal : No joint pain, No Myalgias, No Joint Swelling Skin : No Skin Lesions, No rash Neuro : No Weakness, No Numbness, No Paresthesias, No Loss of Consciousness, No Dizziness, No Headache Psych : No Anxiety/Panic, No Depression, No SI/HI/AH/VH, No Social Issues, Heme/Lymph: No Bruising, No Bleeding,No Lymphadenopathy Endocrine : No Polyuria, No Polydipsia, No Temperature Intolerance Yes all other systems are reviewed and are negative [facility] Past Medical History Medical History Acid reflux Asthma-COPD overlap syndrome Chronic restrictive lung disease Coronary artery disease Epigastric pain Fatty liver Fibromyalgia Gall bladder polyp Hyperlipidemia Hypertension Obesity (BMI 30-39.9) NAM treated with BiPAP Pre-op chest exam Sleep apnea Surgical History History of cardiac cath History of endometrial ablation History of esophagogastroduodenoscopy Hx of tubal ligation Family History Family History Paternal Grandfather No problems noted. Father History of cancer Lung cancer Mother Heart disease Social History Social History Household Members: Significant Other and Children Housing: Apartment Do you presently have visiting nurse or other home services: No Alcohol intake: never Patient Tobacco Use Status: Former Tobacco user Tobacco use type: Cigarette Years Smoked: 5 years Second Hand Smoke Exposure: No Advance Directives: No Advance Directives Information Provided: No service: No Current occupational status: disabled Physical Exam ED Vital Signs: Vital Signs - 24 hr 01/09/22 13:26 Temperature 98 F Pulse Rate 112 H Respiratory Rate 16 Blood Pressure 183/86 H Pulse Oximetry 99 Oxygen Delivery Method Room Air BMI result Body Mass Index 42.2 Vital signs been reviewed patient's blood pressure 183/86. Pulse 112. All other vitals are within normal limits. Appearance: Alert. Oriented X3. No acute distress. Head: Normal external exam. Normocephalic. Eyes: PERRLA. EOMI. Conjunctiva and sclera normal. Eyelids normal. ENT: Pharynx normal. Uvula midline. Moist mucous membranes. No trismus noted. No drooling noted. No muffled voice noted. Neck: Normal inspection. Neck supple. FROM. No adenopathy. No meningeal signs. CVS: Normal heart rate and rhythm. Heart sound normal. No murmurs noted. Pulses normal throughout. Respiratory: No respiratory distress. Painless inspiration. Breath sounds normal. No wheezes/rales/rhonchi noted. Chest nontender. No accessory muscle u josé antonio noted or decreased air movement noted. Abdomen: Abdomen is soft, nondistended. Tenderness to palpation diffusely throughout the abdomen, more exquisitely tender in right upper, epigastric and right lower abdomen, with guarding. Bowel sounds normal in all 4 quadrants. No distention noted. No organomegaly noted. No visible injury noted. No rebound tenderness. Negative Rovsing sign. Negative obturator's sign. Negative psoas sign. Back: No CVA tenderness. Full range of motion noted. Skin: Skin warm and dry. Normal skin color. Normal skin turgor. No rashes/lesions/lacerations noted. Extremities: Extremities exhibit normal range of motion. Extremities nontender. Neuro: Oriented X 3. No motor deficit. No sensory deficit. Reflexes normal. Normal steady gait. CN's II-XII intact bilaterally? Course Course Course Narrative: 20:00 This is a 51-year-old female, with a past medical history of ovarian cyst, asthma, hyperlipidemia, CAD, and fatty liver, who presents to the emergency department with complaints pelvic pain x 3 days. Plan: Patient medicated with 1 L fluids, Dilaudid 1 mg IV, Zofran 4 mg IV. Labs and pelvic ultrasound ordered. Reevaluation(s) Reevaluation #1: - patient just came back from ultrasound received Dilaudid reported that she felt like her throat was closing although I went to examine the patient her oxygen is 100% on room air. She is drinking water without any difficulty. No trismus/drooling/stridor. Tolerating secretions well. Lungs clear to auscultation. Abdomen is soft and nontender. Not allergic reaction at this time although nurses holding onto Benadryl and Solu-Medrol just in case. - labs still pending at this time. Sign-out to JOSE MARTIN Tiwari pending labs and ovarian/Doppler ultrasound to evaluate for possible ovarian torsion. Time: 21:32 MDM - Abdominal Pain Differential Diagnosis Differential diagnosis: Likely abdominal pain, constipation, diverticulitis and ovarian cyst Medical Records Attestation: I reviewed the patient's medical records. Lab Data Attestation: I reviewed the patient's lab results. Result diagrams: 01/09/22 20:32 01/09/22 20:32 Labs: Lab Results 01/09/22 01/09/22 Range/Units 20:32 20:32 WBC 7.4 (4.8-10.8) X10*3/uL RBC 4.39 (4.20-5.50) X10*6/uL Hgb 13.4 (12.0-16.0) g/dl Hct 40.0 (37.0-47.0) % MCV 91.1 (80.0-98.0) fL MCH 30.5 (27.0-33.0) pg MCHC 33.5 (31.0-35.0) g/dl RDW 13.0 (11.0-16.0) % Plt Count 262 (160-400) X10*3/uL MPV 11.2 (9.4-12.3) fL Immature Gran % (Auto) 0.1 (0.0-0.4) % Neut % (Auto) 54.9 (45-73) % Lymph % (Auto) 35.5 (20-40) % Dickey % (Auto) 9.0 (2-11) % Eos % (Auto) 0.4 (0-4) % Baso % (Auto) 0.1 (0-2) % Lymph # (Auto) 2.6 (1.2-4.9) X10*3/uL Dickey # (Auto) 0.7 (0.1-1.2) X10*3/uL Eos # (Auto) 0.0 (0.0-0.4) X10*3/uL Baso # (Auto) 0.0 (0.0-0.2) X10*3/uL Abs Immat Gran (auto) 0.01 (0.00-0.03) X10*3/uL Absolute Neuts (auto) 4.0 (2.0-8.3) x10*3/uL Absolute Nucleated RBC 0.000 (0.0-0.012) X10*3/uL Nucleated RBC % (auto) 0.0 (0.0-0.2) /100WBC PT 11.1 (10.0-13.1) SEC INR 1.0 (0.9-1.1) Critical Care Time Critical Care Time Critical Care Time: Yes Total Critical Care Time: 60 Attestation: I personally attest to this time spent taking care of the patient Discharge Plan Discharge Clinical Impression: Ovarian cyst Patient Disposition: Still a Patient Prescriptions: No Action fenofibrate 54 mg tablet 54 mg PO DAILY 90 Days Qty: 90 3RF cholecalciferol (vitamin D3) 50 mcg (2,000 unit) tablet 50 mcg PO DAILY Qty: 30 6RF ezetimibe 10 mg tablet 10 mg PO DAILY 90 Days Qty: 90 3RF rosuvastatin [Crestor] 40 mg tablet 40 mg PO DAILY 90 Days Qty: 90 1RF famotidine 40 mg tablet 40 mg PO BEDTIME Qty: 30 3RF sennosides [Natural Senna Laxative] 8.6 mg tablet 8.6 mg PO BEDTIME Qty: 30 3RF amlodipine 10 mg tablet 10 mg PO DAILY Qty: 60 3RF Repatha SureClick 140 mg/mL pen injector 140 mg subcut Q2W 90 Days Qty: 7 3RF sumatriptan succinate 50 mg tablet 50 mg PO Q2-4H PRN (Reason: migraine headache) Qty: 10 0RF Rx Instructions: do not exceed 4 doses per 24 hrs tramadol 50 mg Tablet 50 mg PO BID PRN (Reason: Pain) albuterol sulfate 90 mcg/actuation HFA aerosol inhaler 1 inh inhalation QID PRN (Reason: shortness of breath or wheezing) Qty: 8.5 0RF prednisone 20 mg tablet 40 mg PO DAILY Qty: 10 0RF azithromycin [Zithromax Z-Jan] 250 mg tablet See Rx Instructions .ROUTE .COMPLEX Qty: 6 0RF Rx Instructions: take 500 mg today (day 1), then 250 mg for 4 days (days 2-5) benzonatate 100 mg capsule 100 mg PO TID PRN (Reason: cough) Qty: 30 0RF Mucinex 1,200 mg tablet extended release 12hr 1,200 mg PO BID Qty: 14 0RF ketorolac 10 mg tablet 10 mg PO BID PRN (Reason: pain) Qty: 7 0RF Rx Instructions: Do not use these medications with Aleve, NSAIDs, only use Tylenol or tramadol for breakthrough pain albuterol sulfate 90 mcg/actuation aerosol powdr breath activated 1 inh inhalation Q4-6H PRN (Reason: Gastric Reflux) lorazepam [Ativan] 2 mg tablet 2 mg PO BEDTIME PRN (Reason: Anxiety) Flovent HFA 110 mcg/actuation HFA aerosol inhaler 1 puff inhalation BID zolpidem [Ambien] 10 mg tablet 5 mg PO BEDTIME PRN (Reason: Anxiety) methocarbamol 500 mg tablet 500 mg PO QID PRN (Reason: Muscle Spasm) pantoprazole [Protonix] 40 mg tablet,delayed release (DR/EC) 40 mg PO DAILY docusate sodium [Colace] 100 mg capsule 100 mg PO DAILY PRN (Reason: Constipation) (DME) CPAP Machine/Device Device See Rx Instructions .ROUTE .MEDSUPPLY Qty: 1 Rx Instructions: As directed Tab-A-Colton Multivitamin w-iron 15 mg iron- 400 mcg tablet 1 tab PO DAILY duloxetine 60 mg capsule,delayed release(DR/EC) 60 mg PO DAILY fluticasone propionate 50 mcg/actuation spray,suspension 2 spray intranasal DAILY lisinopril 5 mg tablet 5 mg PO DAILY cetirizine 10 mg tablet 10 mg PO DAILY polyethylene glycol 3350 [Miralax] 17 gram powder in packet 17 g PO DAILY Qty: 30 5RF Spiriva Respimat 1.25 mcg/actuation mist 2 puff PO DAILY Anoro Ellipta 62.5-25 mcg/actuation blister with device 1 inh inhalation DAILY Qty: 60 11RF Trelegy Ellipta 200-62.5-25 mcg blister with device 1 inh inhalation DAILY 30 Days Qty: 60 12RF
[2022-01-09 20:43] LABS: MANUAL DIFF FLAG NO
[2022-01-09 20:45] LABS: Basophils Percent Auto 0.1 % (0-2); Eosinophils Percent Auto 0.4 % (0-4); Hemoglobin 13.4 g/dl (12.0-16.0); Imm Gran Abs Auto 0.01 X10*3/uL (0.00-0.03); Imm Gran Pct Auto 0.1 % (0.0-0.4); Lymphocytes Absolute Auto 2.6 X10*3/uL (1.2-4.9); Lymphocytes Percent Auto 35.5 % (20-40); Mean Corpuscular HGB Conc 33.5 g/dl (31.0-35.0); Mean Corpuscular Hemoglobin 30.5 pg (27.0-33.0); Mean Corpuscular Volume 91.1 fL (80.0-98.0); Mean Platelet Volume 11.2 fL (9.4-12.3); Monocytes Absolute Auto 0.7 X10*3/uL (0.1-1.2); Neutrophils Percent Auto 54.9 % (45-73); Platelet Count 262 X10*3/uL (160-400); Red Blood Count 4.39 X10*6/uL (4.20-5.50); White Blood Count 7.4 X10*3/uL (4.8-10.8)
[2022-01-09 20:53] LABS: Prothrombin Time 11.1 SEC (10.0-13.1)
[2022-01-09] MEDS: ondansetron HCL 4 MG/2 ML VIAL IVPUSH (21:20)
[2022-01-09] MEDS: 0.9 % Sodium Chloride 1,000 ML 999 ML IVCONT (21:21)
[2022-01-09] MEDS: HYDROmorphone HCl 1 MG/ML SYRINGE IVPUSH (21:22)
--- NOTE | 2022-01-09 21:44 | PC.NURSE ---
Pt given dilaudid 2mg IVP, as well as zofran 4mg. pt family member alerted medical communication specialist that pt verbalized that her throat was closing CHRISTIE Dudley made aware. ordered Medrol and Benadryl, after evaluating pt CHRISTIE Dudley stated medrol and benadryl were no appropriate at this time. Pt drinking water, speaking in full sentances without difficulty
[2022-01-09 21:54] LABS: Alanine Aminotransferase 28 U/L (0-31); Albumin Level 4.7 g/dL (3.5-5.0); Alkaline Phosphatase 85 U/L (39-117); Anion Gap 14 (12-20); Aspartate Amino Transferase 21 U/L (5-31); Bilirubin Total 0.3 mg/dL (0.0-1.0); Blood Urea Nitrogen 10 mg/dL (9-16); Calcium 9.3 mg/dL (8.4-10.2); Carbon Dioxide 23 mmol/L (22-29); Chloride 108 mmol/L (96-108); Creatinine Clr Calc Pharmacy 95.5; Estimated Glomerular Filt Rate > 60; Glucose Random 90 mg/dL (60-115); Magnesium 2.1 mg/dL (1.6-2.6); Potassium 3.8 mmol/L (3.3-5.1); Sodium 141 mmol/L (135-145); Total Protein 7.5 g/dL (6.5-8.0)
[2022-01-09 22:40] VITALS: BP 133/65; PULSE 85; RESP 18; O2SAT 98
[2022-01-10 01:35] VITALS: BP 128/62; PULSE 75; RESP 19; O2SAT 99
--- NOTE | 2022-01-10 01:41 | P.CONOB_ITS ---
CATH LAB RADIOLOGICAL TECHNOLOGIST - CN: HPI Data of Consult Consult date: 01/10/22 Primary Care Provider: Ava Yap, Consult Narrative Narrative: I was consulted at 01:13 am on Ximena Muhammad who is a 51 year old female presented emergency room with pelvic pain of 2-3 days duration.? Patient was seen in the emergency room on 01/07/2022 with similar complaints, the CT abdomen and pelvis showed a cystic adnexal lesion measuring 10.7 cm x 7.8 cm with normal bilateral Doppler flow. The patient had an ultrasound in September of 2020 which showed 6.5 complex ovarian cyst that persisted after 3 months, the patient was referred to OBGYN at [facility], because of the lack of availability of intake manager oncologist on [facility], the patient did not follow-up. No other complaints or concerns. cc:: CC: OB PMF Past Medical History Medical History Acid reflux Asthma-COPD overlap syndrome Chronic restrictive lung disease Coronary artery disease Epigastric pain Fatty liver Fibromyalgia Gall bladder polyp Hyperlipidemia Hypertension Obesity (BMI 30-39.9) NAM treated with BiPAP Pre-op chest exam Sleep apnea Family History Family History Paternal Grandfather No problems noted. Father History of cancer Lung cancer Mother Heart disease Surgical History Surgical History History of cardiac cath History of endometrial ablation History of esophagogastroduodenoscopy Hx of tubal ligation Social History Social History Household Members: Significant Other and Children Housing: Apartment Do you presently have visiting nurse or other home services: No Alcohol intake: never Patient Tobacco Use Status: Former Tobacco user Tobacco use type: Cigarette Years Smoked: 5 years Second Hand Smoke Exposure: No Advance Directives: No Advance Directives Information Provided: No service: No Current occupational status: disabled Meds Allergies Allergy/AdvReac Type Severity Reaction Status Date / Time loratadine [From CLARITIN] Allergy Mild CHILLS AND Verified 01/06/22 13:43 DIFF BREATHING Home Medications Medication Instructions Recorded Confirmed Last Taken Type albuterol sulfate 90 mcg/actuation 1 inh inhalation Q4-6H PRN Gastric 10/01/20 07/14/22 Unknown History breath activated powder inhaler Reflux docusate sodium 100 mg capsule 100 mg PO DAILY PRN Constipation 03/26/20 01/06/22 Unknown History (Colace) fluticasone propionate 110 1 puff inhalation BID 03/26/20 01/06/22 Unknown History mcg/actuation HFA aerosol inhaler (Flovent HFA) lorazepam 2 mg tablet (Ativan) 2 mg PO BEDTIME PRN Anxiety 03/26/20 01/06/22 Unknown History methocarbamol 500 mg tablet 500 mg PO QID PRN Muscle Spasm 03/26/20 01/06/22 Unknown History pantoprazole 40 mg tablet,delayed 40 mg PO DAILY 03/26/20 01/06/22 Unknown History release (Protonix) zolpidem 10 mg tablet (Ambien) 5 mg PO BEDTIME PRN Anxiety 03/26/20 01/06/22 Unknown History tramadol 50 mg tablet 50 mg PO BID PRN Pain 05/20/20 01/06/22 Unknown History CPAP (CPAP Machine/Device) #1 ea 12/24/20 01/06/22 Unknown History cetirizine 10 mg tablet 10 mg PO DAILY 07/19/21 01/06/22 Unknown History duloxetine 60 mg capsule,delayed 60 mg PO DAILY 07/19/21 01/06/22 Unknown History release fluticasone propionate 50 2 spray intranasal DAILY 07/19/21 01/06/22 Unknown History mcg/actuation nasal spray,suspension lisinopril 5 mg tablet 5 mg PO DAILY 07/19/21 01/06/22 Unknown History multivitamin-iron sulfate 15 1 tab PO DAILY 07/19/21 01/06/22 Unknown History mg-folic acid 400 mcg tablet (Tab-A-Colton Multivitamin w-iron) tiotropium bromide 1.25 2 puff PO DAILY 08/27/21 01/06/22 Unknown History mcg/actuation mist for inhalation (Spiriva Respimat) CATH LAB RADIOLOGICAL TECHNOLOGIST Physical Exam Vitals Vital signs: Temp Pulse Resp BP Pulse Ox O2 Del Method 98 F 75 19 128/62 99 01/09/22 13:26 01/10/22 01:35 01/10/22 01:35 01/10/22 01:35 01/10/22 01:35 01/10/22 01:35 BMI result Body Mass Index 42.2 CATH LAB RADIOLOGICAL TECHNOLOGIST - Results Labs CBC & Chem 7: 01/09/22 20:32 01/09/22 21:20 Labs: Short CBC 01/09/22 Range/Units 20:32 WBC 7.4 (4.8-10.8) X10*3/uL Hgb 13.4 (12.0-16.0) g/dl Hct 40.0 (37.0-47.0) % Plt Count 262 (160-400) X10*3/uL BMP 01/09/22 21:20 Sodium 141 Potassium 3.8 Chloride 108 Carbon Dioxide 23 BUN 10 Creatinine 0.74 Calcium 9.3 Liver Function 01/09/22 Range/Units 21:20 Total Bilirubin 0.3 (0.0-1.0) mg/dL AST 21 (5-31) U/L ALT 28 (0-31) U/L Alkaline Phosphatase 85 (39-117) U/L Albumin 4.7 (3.5-5.0) g/dL Imaging US - abdomen: Radiologist's impression: ITS Impressions Doppler Study Ultrasound 01/09/22 21:14 IMPRESSION: Again seen is a 8.2 cm complex right ovarian cyst with a single thin septation. Recommend further evaluation with MRI of the pelvis with and without contrast or gynecologic consultation. Only venous Doppler waveforms are identified along the periphery of the cyst. No arterial waveform documented although this may be the for technical reasons. Myomatous uterus. Pelvic/Transvag US 01/09/22 21:14 IMPRESSION: Again seen is a 8.2 cm complex right ovarian cyst with a single thin septation. Recommend further evaluation with MRI of the pelvis with and without contrast or gynecologic consultation. Only venous Doppler waveforms are identified along the periphery of the cyst. No arterial waveform documented although this may be the for technical reasons. Myomatous uterus. Assessment and Plan (1) Complex ovarian cyst: Status: Acute Plan Discussed with CHRISTIE Andrade in the emergency room the following: Ultrasound showed an 8.2 cm complex ovarian cyst persistent and increased in size since 10/14, the differential diagnosis includes but not limited to: ovarian malignancy and/or low malignant potential; In addition, since there is no arterial waveforms identified on Doppler studies, ovarian torsion is a possibility; Therefore, I recommend a repeat Doppler flow yossi, if ovarian torsion is diagnosed, the patient will need surgical management. Since the differential di agnosis includes ovarian malignancy and there is no gynecologic oncologists at [facility] available intraoperatively, I recommend to transfer the patient to [facility] yossi. We discussed the urgency of clinical situation in case of ovarian torsion.
[2022-01-10] MEDS: HYDROmorphone HCl 0.5 MG/0.5 ML SYRINGE IVPUSH (01:51)
[2022-01-10 02:26] LABS: COVID-19 Test Negative (Negative)
--- NOTE | 2022-01-10 02:51 | PC.NURSE ---
This Us/Pct called [facility] transfer line at 0145 per Karie SORIANO awaiting a call back. At 0208 accepted pt to [facility] W2.Action called at 0224 for a BLS transfer awaiting arrival,ETA of 35 minutes.Rn aware
--- NOTE | 2022-01-10 03:10 | PC.NURSE ---
EMS at bedside for transport to [facility].
--- NOTE | 2022-01-10 03:26 | PC.NURSE ---
Report given to W2 RN.
== END 2022-01-10 03:26 | disposition short-term general hospital (02) ==
PROVIDERS: Physician Assistant; Physician Assistant Medical; Emergency Provider Emergency Medicine; PCP Family Medicine
DX: N83.202 Unspecified ovarian cyst, left side (principal); N83.201 Unspecified ovarian cyst, right side; R10.2 Pelvic and perineal pain; N83.512 Torsion of left ovary and ovarian pedicle; N83.511 Torsion of right ovary and ovarian pedicle; I25.10 Atherosclerotic heart disease of native coronary artery without angina pectoris; Z20.822 Contact with and (suspected) exposure to COVID-19; Z79.899 Other long term (current) drug therapy
CPT/HCPCS: 36415; 76830; 76856; 80053; 83735; 85025; 85610; 87635; 93975; 96374; 96375; 96376; 99285; J1170; J2405

== ENCOUNTER → 2022-01-17 14:34 | Outpatient (BNVA) | payer MEDICAID, SELFPAY | PROVIDERS: PCP Family Medicine; Visit Provider Hospitalist | DX: Z01.811 Encounter for preprocedural respiratory examination (principal); J44.9 Chronic obstructive pulmonary disease, unspecified; G47.33 Obstructive sleep apnea (adult) (pediatric); J98.4 Other disorders of lung; Z79.899 Other long term (current) drug therapy | CPT/HCPCS: 99212 ==

== ENCOUNTER 2022-01-21 12:12 | Day surgery (SDC) | payer MEDICAID, SELFPAY ==
--- NOTE | 2022-01-20 10:11 | HO.ANESPROP2 ---
Documented by User: Barbra Livingston NP 01/20/22 10:15 HPI - Anesthesia Eval Consult details Narrative: 51yo F for Upper Endoscopy with Balloon Dilitation Planning for hysterectomy - pulmo and cardiol cleared PMFSH Active Problems Active Problems: All Active Problems (Updated 01/17/22 @ 15:27 by Fermin Vyas MD) Pre-op chest exam (Acute) Preop cardiovascular exam (Acute) Limb swelling (Acute) Extremity pain (Acute) Pre-op chest exam (Acute) Chronic restrictive lung disease (Acute) NAM treated with BiPAP (Acute) Asthma-COPD overlap syndrome (Acute) Ovarian cyst (Acute) Fibromyalgia (Acute) Chest pain (Acute) Complex ovarian cyst (Acute) COVID-19 (Acute) Persistent dyspnea after COVID-19 (Acute) Hyperlipidemia (Acute) Coronary artery disease (Acute) Hypertension (Acute) Bilateral post-traumatic osteoarthritis of knee (Acute) Bilateral knee pain (Acute Unknown) Heart palpitations (Acute) Leg pain (Acute) Fatty liver (Acute) Gall bladder polyp (Acute) Obesity (BMI 30-39.9) (Acute) Past Medical History Medical History Acid reflux Asthma-COPD overlap syndrome Chronic restrictive lung disease Coronary artery disease Epigastric pain Fatty liver Fibromyalgia Gall bladder polyp Hyperlipidemia Hypertension Obesity (BMI 30-39.9) NAM treated with BiPAP Pre-op chest exam Sleep apnea Family History Family History Paternal Grandfather No problems noted. Father History of cancer Lung cancer Mother Heart disease Surgical History Surgical History History of cardiac cath History of endometrial ablation History of esophagogastroduodenoscopy Hx of tubal ligation Social History Social History Household Members: Significant Other and Children Housing: Apartment Do you presently have visiting nurse or other home services: No Alcohol intake: never Patient Tobacco Use Status: Former Tobacco user Tobacco use type: Cigarette Years Smoked: 5 years Second Hand Smoke Exposure: No Use of substances other than those prescribed or required for medical reasons: No Are you DNR?: No Advance Directives: No Advance Directives Information Provided: Yes service: No Current occupational status: disabled Meds Allergies Allergy/AdvReac Type Severity Reaction Status Date / Time loratadine [From CLARITIN] Allergy Mild CHILLS AND Verified 01/17/22 15:17 DIFF BREATHING Home Medications Medication Instructions Recorded Confirmed Last Taken Type docusate sodium 100 mg capsule 100 mg PO DAILY PRN Constipation 03/26/20 01/17/22 Unknown History (Colace) fluticasone propionate 110 1 puff inhalation BID 03/26/20 01/17/22 Unknown History mcg/actuation HFA aerosol inhaler (Flovent HFA) lorazepam 2 mg tablet (Ativan) 2 mg PO BEDTIME PRN Anxiety 03/26/20 01/17/22 Unknown History methocarbamol 500 mg tablet 500 mg PO QID PRN Muscle Spasm 03/26/20 01/17/22 Unknown History pantoprazole 40 mg tablet,delayed 40 mg PO DAILY 03/26/20 01/17/22 Unknown History release (Protonix) zolpidem 10 mg tablet (Ambien) 5 mg PO BEDTIME PRN Anxiety 03/26/20 01/17/22 Unknown History tramadol 50 mg tablet 50 mg PO BID PRN Pain 05/20/20 01/17/22 Unknown History CPAP (CPAP Machine/Device) #1 ea 12/24/20 01/06/22 Unknown History cetirizine 10 mg tablet 10 mg PO DAILY 07/19/21 01/17/22 Unknown History duloxetine 60 mg capsule,delayed 60 mg PO DAILY 07/19/21 01/17/22 Unknown History release fluticasone propionate 50 2 spray intranasal DAILY 07/19/21 01/17/22 Unknown History mcg/actuation nasal spray,suspension lisinopril 5 mg tablet 5 mg PO DAILY 07/19/21 01/17/22 Unknown History tiotropium bromide 1.25 2 puff PO DAILY 08/27/21 01/17/22 Unknown History mcg/actuation mist for inhalation (Spiriva Respimat) albuterol sulfate 2.5 mg/3 mL 1 amp inhalation Q4H PRN Wheezing 01/17/22 01/17/22 Unknown History (0.083 %) solution for nebulization gabapentin 400 mg capsule 400 cap PO BID 01/17/22 01/17/22 Unknown History multivitamin-iron sulfate 15 1 tab PO DAILY 01/17/22 01/17/22 Unknown History mg-folic acid 400 mcg tablet (Tab-A-Colton Multivitamin w-iron) naloxone 4 mg/actuation nasal spray spray intranasal 01/17/22 Unknown History Exam Exam Date and Time: January 20, 2022 1011 Pertinent Lab Results Pertinent Lab Results: Laboratory Tests 01/09/22 01/09/22 20:32 21:20 WBC 7.4 Hgb 13.4 Hct 40.0 Plt Count 262 Sodium 141 Potassium 3.8 Chloride 108 Carbon Dioxide 23 BUN 10 Creatinine 0.74 Narrative Narrative: EKG 12/2021 Vent. Rate : 082 BPM ? ? Atrial Rate : 082 BPM ?? P-R Int : 126 ms? QRS Dur : 076 ms ? ? QT Int : 368 ms ? ? ? P-R-T Axes : 037 -03 078 degrees ?? QTc Int : 429 ms ? Normal sinus rhythm Cannot rule out Anterior infarct (cited on or before 08-JUN-2021) Abnormal ECG When compared with ECG of 13-DEC-2021 21:13, Criteria for Inferior infarct are no longer Present NM tong perf SPECT rest & str 2020 Impression: ? 1.? Myocardial perfusion imaging study shows normal myocardial perfusion 2.? Gated LVEF is 71% 3. Transient ischemic dilatation not present ? EKG is nondiagnostic for ischemia Assessment and Plan Assessment Anesthesia Assessment: Chart Reviewed Documented by User: Socorro Hand MD 01/21/22 13:56 [facility] Past Medical History Medical History Acid reflux Asthma-COPD overlap syndrome Chronic restrictive lung disease Coronary artery disease Epigastric pain Fatty liver Fibromyalgia Gall bladder polyp Hyperlipidemia Hypertension Obesity (BMI 30-39.9) NAM treated with BiPAP Pre-op chest exam Sleep apnea Family History Family History Paternal Grandfather No problems noted. Father History of cancer Lung cancer Mother Heart disease Surgical History Surgical History History of cardiac cath History of endometrial ablation History of esophagogastroduodenoscopy Hx of tubal ligation History of Problems with Anesthesia: No Social History Social History Household Members: Significant Other and Children Housing: Apartment Do you presently have visiting nurse or other home services: No Alcohol intake: never Patient Tobacco Use Status: Former Tobacco user Tobacco use type: Cigarette Years Smoked: 5 years Second Hand Smoke Exposure: No Use of substances other than those prescribed or required for medical reasons: No Are you DNR?: No Advance Directives: No Advance Directives Information Provided: Yes service: No Current occupational status: disabled Meds Allergies Allergy/AdvReac Type Severity Reaction Status Date / Time loratadine [From CLARITIN] Allergy Mild CHILLS AND Verified 01/17/22 15:17 DIFF BREATHING Home Medications Medication Instructions Recorded Confirmed Last Taken Type docusate sodium 100 mg capsule 100 mg PO DAILY PRN Constipation 03/26/20 01/17/22 Unknown History (Colace) fluticasone propionate 110 1 puff inhalation BID 03/26/20 01/17/22 Unknown History mcg/actuation HFA aerosol inhaler (Flovent HFA) lorazepam 2 mg tablet (Ativan) 2 mg PO BEDTIME PRN Anxiety 03/26/20 01/17/22 Unknown History methocarbamol 500 mg tablet 500 mg PO QID PRN Muscle Spasm 03/26/20 01/17/22 Unknown History pantoprazole 40 mg tablet,delayed 40 mg PO DAILY 03/26/20 01/17/22 Unknown History release (Protonix) zolpidem 10 mg tablet (Ambien) 5 mg PO BEDTIME PRN Anxiety 03/26/20 01/17/22 Unknown History tramadol 50 mg tablet 50 mg PO BID PRN Pain 05/20/20 01/17/22 Unknown History CPAP (CPAP Machine/Device) #1 ea 12/24/20 01/06/22 Unknown History cetirizine 10 mg tablet 10 mg PO DAILY 07/19/21 01/17/22 Unknown History duloxetine 60 mg capsule,delayed 60 mg PO DAILY 07/19/21 01/17/22 Unknown History release fluticasone propionate 50 2 spray intranasal DAILY 07/19/21 01/17/22 Unknown History mcg/actuation nasal spray,suspension lisinopril 5 mg tablet 5 mg PO DAILY 07/19/21 01/17/22 Unknown History tiotropium bromide 1.25 2 puff PO DAILY 08/27/21 01/17/22 Unknown History mcg/actuation mist for inhalation (Spiriva Respimat) albuterol sulfate 2.5 mg/3 mL 1 amp inhalation Q4H PRN Wheezing 01/17/22 01/17/22 Unknown History (0.083 %) solution for nebulization gabapentin 400 mg capsule 400 cap PO BID 01/17/22 01/17/22 Unknown History multivitamin-iron sulfate 15 1 tab PO DAILY 01/17/22 01/17/22 Unknown History mg-folic acid 400 mcg tablet (Tab-A-Colton Multivitamin w-iron) naloxone 4 mg/actuation nasal spray spray intranasal 01/17/22 Unknown History Exam Airway Mallampati Class: III TM Dist: >3cm Neck ROM: Limited Loose/Missing/Broken Teeth: No Heart: RRR Lungs: CTA Assessment and Plan Assessment Anesthesia Assessment: Anesthesia Plan Discussed Final Anesthetic Review History of Problems with Anesthesia: No NPO: Yes ASA Class: III Final Preanesthetic Review: Meds/Allgs Chart Reviewed, Consent Obtained/Reviewed and Anes Risks/Benef Reviewed Patient Risk: Intermediate Procedure Risk: Intermediate Anesthetic Plan Anesthetic Plan: MAC: Disposition: Standard PACU
[2022-01-21 12:50] VITALS: BP 136/71; PULSE 101; RESP 18; TEMP 36.2; O2SAT 96; BMI 44.0
--- NOTE | 2022-01-21 13:07 | MHC.SHP ---
Pre-Procedural Eval Section A Date of Service: 01/21/22 The patient is an INPATIENT: No The History & Physical has been completed within 30 days and I have reviewed it.: No Section B Chief Complaint: reflux disease Present Medications: see Short Stay Collaborative assessment Medical History: Significant History (Acid reflux Asthma-COPD overlap syndrome Chronic restrictive lung disease Coronary artery disease Epigastric pain Fatty liver Fibromyalgia Gall bladder polyp Hyperlipidemia Hypertension Obesity (BMI 30-39.9) NAM treated with BiPAP Pre-op chest exam Sleep apnea) History of Previous Operations: Relevant previous surgery/procedure and date(s) (History of cardiac cath History of endometrial ablation History of esophagogastroduodenoscopy Hx of tubal ligation) Allergies: Allergies Allergy/AdvReac Type Severity Reaction Status Date / Time loratadine [From CLARITIN] Allergy Mild CHILLS AND Verified 01/17/22 15:17 DIFF BREATHING Review of Systems Sugical H&P ROS: Negative: Constitution and Cardiovascular and Yes, Specify: Respiratory (cough) and Gastrointestinal (GERD, dysphagia, constipation) Exam Surgical H&P Exam: Normal: Heart, Normal: Lungs, Normal: Extremities and Normal: Abdomen Plan Diagnosis/Plan: Unchanged I have reviewed the history and physical and performed a pertinent physical examination on my patient. No changes have occurred unless specified.
--- NOTE | 2022-01-21 14:28 | P.BOP_ITS ---
Brief Operative Note Date of Service: 01/21/22 Pre-op diagnosis: GERD, persistent Helicobacter pylori infection, dysphagia Post-op diagnosis: other (Esophagitis, gastritis, gastric nodule) Procedure: FLEXIBLE TRANSORAL UPPER GASTROINTESTINAL ENDOSCOPY WITH BIOPSIES Consent: Indications for the procedure and potential complications of bleeding, perforation, reaction to medications and missed diagnosis were discussed with the patient and informed consent was obtained. Instrument: Olympus GIF H 190 mid size upper endoscope Monitoring: Vital signs and clinical assessment, continuous EKG monitoring, Pulse oximetry, Carbon Dioxide monitoring and blood pressure monitoring were done throughout the procedure. Procedure: The patient was placed in the left lateral decubitis position and pre-procedure medications were administered and a bite block was placed. The endoscope was inserted into the mouth and advanced under direct vision to the third part of duodenum. A careful inspection was made as the upper endoscope was withdrawn including a retroflexed examination of the proximal stomach; Findings and interventions are described below. Findings: Larynx: Normal Esophagus: Tortuous esophagus with increased tertiary contractions without stricture or ring. Biopsies were obtained from proximal esophagus to check for EOE. GE junction at 36 cms. A single 2 cms linear erosion at the GE junction. Stomach: Moderate diffuse gastric erythema. Biopsies were obtained from the gastric body and antrum. A 10 -12 mm benign appearing nodule/polyp in the antrum - biopsied. Antral biopsies were sent to microbiology for H Pylori culture and sensitivity Grade 2 flap valve on retroflexed examination of the cardia. Duodenum: Normal bulb and descending duodenum. Biopsies were obtained from 3rd part of duodenum to check for celiac sprue. Intervention: Biopsies as noted above Impression and Post Procedure Diagnosis: Endoscopy Findings: ESOPHAGUS: Tortuous esophagus with increased tertiary contractions without stricture or ring. Biopsies were obtained from proximal esophagus to check for EOE. GE junction at 36 cms. A single 2 cms linear erosion at the GE junction. STOMACH: Moderate diffuse gastric erythema. Biopsies were obtained from the gastric body and antrum. A 10 -12 mm benign appearing nodule/polyp in the antrum - biopsied. Antral biopsies were sent to microbiology for H Pylori culture and sensitivity DUODENUM: Normal - biopsied to check for celiac sprue Plan: Await pathology results Patient has an appointment on 02/04/22 in the GI Clinic with Mirela Valentin FNP- [place]. Above findings were reviewed with the patient and GERD handout was given in the discharge area Surgeon: Naomi Montes De Oca MD Anesthesia: MAC Was an Information Security Architect used for this Procedure?: Yes Information Security Architect: Carmina Kasper Estimated blood loss (mL): 0 Pathology: other (A. (sent to micro) B. small bowel bxs, R/O celiac C. gastric nodule bxs D. gastric body bxs E. proximal esophagus bxs, R/O EoE F. gastric antrum bxs, R/O H. pylori) Condition: stable Disposition: PACU
[2022-01-21 14:30] VITALS: BP 115/65; PULSE 111; RESP 18; TEMP 36.4; O2SAT 96
[2022-01-21 14:45] VITALS: BP 133/80; PULSE 114; RESP 18; TEMP 36.3; O2SAT 97
--- NOTE | 2022-01-21 15:28 | P.OP_ITS ---
Operative Note Operative Note Date of Service: 01/21/22 Narrative: Pre-op diagnosis: GERD, persistent Helicobacter pylori infection, dysphagia Post-op diagnosis:?other (Esophagitis, gastritis, gastric nodule) Procedure: FLEXIBLE TRANSORAL UPPER GASTROINTESTINAL ENDOSCOPY WITH BIOPSIES Consent:?Indications for the procedure and potential complications of bleeding, perforation, reaction to medications and missed diagnosis were discussed with the patient and informed consent was obtained. Instrument:?Olympus GIF H 190 mid size upper endoscope Monitoring: Vital signs and clinical assessment, continuous EKG monitoring, Pulse oximetry, Carbon Dioxide monitoring and blood pressure monitoring were done throughout the procedure. Procedure:?The patient was placed in the left lateral decubitis position and pre-procedure medications were administered and a bite block was placed. The endoscope was inserted into the mouth and advanced under direct vision to the third part of duodenum. A careful inspection was made as the upper endoscope was withdrawn including a retroflexed examination of the proximal stomach; Findings and interventions are described below. Findings: Larynx:? Normal Esophagus:? Tortuous esophagus with increased tertiary contractions without stricture or ring. Biopsies were obtained from proximal esophagus to check for EOE. GE junction at 36 cms.? A single 2 cms linear erosion at the GE junction. Stomach: Moderate diffuse gastric erythema. Biopsies were obtained from the gastric body and antrum. A 10 -12 mm benign appearing nodule/polyp in the antrum - biopsied. Antral biopsies were sent to microbiology for H Pylori culture and sensitivity Grade 2 flap valve on retroflexed examination of the cardia. Duodenum: Normal bulb and descending duodenum. Biopsies were obtained from 3rd part of duodenum to check for celiac sprue. Intervention: Biopsies as noted above Impression and Post Procedure Diagnosis: Endoscopy Findings: ESOPHAGUS: Tortuous esophagus with increased tertiary contractions without stricture or ring. Biopsies were obtained from proximal esophagus to check for EOE. GE junction at 36 cms.? A single 2 cms linear erosion at the GE junction. STOMACH:? Moderate diffuse gastric erythema. Biopsies were obtained from the gastric body and antrum. A 10 -12 mm benign appearing nodule/polyp in the antrum - biopsied. Antral biopsies were sent to microbiology for H Pylori culture and sensitivity DUODENUM: Normal - biopsied to check for celiac sprue Plan: Await pathology results Patient has an appointment on 02/04/22 in the GI Clinic with Mirela Valentin FNP- [place]. Above findings were reviewed with the patient and GERD handout was given in the discharge area Surgeon: Naomi Montes De Oca MD Anesthesia:?MAC Was an Gem Cutter used for this Procedure?:?Yes Gem Cutter:?Carmina Kasper Estimated blood loss (mL):?0 Pathology:?other (A. (sent to micro)? B. small bowel bxs, R/O celiac? C. gastric nodule bxs? D. gastric body bxs? E. proximal esophagus bxs, R/O EoE? F. gastric antrum bxs, R/O H. pylori) Condition:?stable Disposition:?PACU
== END 2022-01-21 15:08 | disposition home or self-care (01) ==
PROVIDERS: PCP Family Medicine; Visit Provider Internal Medicine Gastroenterology
PROC: (CPT 43239; principal; 2022-01-21 13:30)
DX: K21.9 Gastro-esophageal reflux disease without esophagitis (principal); K20.80 Other esophagitis without bleeding; B96.81 Helicobacter pylori [H. pylori] as the cause of diseases classified elsewhere; K29.50 Unspecified chronic gastritis without bleeding; K31.7 Polyp of stomach and duodenum; K76.0 Fatty (change of) liver, not elsewhere classified; J44.9 Chronic obstructive pulmonary disease, unspecified; I25.10 Atherosclerotic heart disease of native coronary artery without angina pectoris; I10 Essential (primary) hypertension; E78.5 Hyperlipidemia, unspecified; M79.7 Fibromyalgia; K82.4 Cholesterolosis of gallbladder; G47.33 Obstructive sleep apnea (adult) (pediatric); Z99.89 Dependence on other enabling machines and devices; Z88.8 Allergy status to other drugs, medicaments and biological substances; Z87.891 Personal history of nicotine dependence
CPT/HCPCS: 43239; 36415; 87081; 88305; 88342; J3010

== ENCOUNTER 2022-04-15 15:17 | Outpatient (REF) | payer MEDICAID, SELFPAY ==
--- NOTE | ~2022-04-15 | MM_ITS ---
EXAMINATION: MM SCREENING DIGITAL BREAST TOMOSYNTHESIS, BILATERAL CLINICAL INFORMATION: Screening. Asymptomatic. The lifetime risk of breast cancer based on the Tyrer-Cuzick Model is 9.8%. COMPARISON: Mammography: December 11, 2020 and studies dating back to April 01, 2016 TECHNIQUE: Digital breast tomosynthesis is performed in both the craniocaudal and mediolateral oblique views along with computer-aided detection (CAD). Synthesized 2D images are generated from the tomosynthesis. FINDINGS: The breasts are extremely dense, which lowers the sensitivity of mammography (ACR BI-RADS breast composition Category d). There are no significant masses, abnormal calcifications, or other abnormalities. MM/MM tomosynthesis screening BI IMPRESSION: No significant changes from prior exam. ASSESSMENT: BI-RADS 1: Negative RECOMMENDATION: Routine annual mammography screening. This patient's information was entered into a reminder system with a target due date for their next mammogram.
== END 2022-04-15 15:18 | disposition home or self-care (01) ==
LOC: HO.MAMMO 15:17
PROVIDERS: PCP Family Medicine; Visit Provider Family Medicine
DX: Z12.31 Encounter for screening mammogram for malignant neoplasm of breast (principal)
CPT/HCPCS: 77063; 77067

== ENCOUNTER → 2022-07-13 12:45 | Outpatient (BNVA) | payer MEDICAID, SELFPAY | PROVIDERS: PCP Family Medicine; Referring Provider Family Medicine; Visit Provider Internal Medicine Cardiovascular Disease | DX: R07.9 Chest pain, unspecified (principal); I10 Essential (primary) hypertension | CPT/HCPCS: 99212 ==

== ENCOUNTER → 2022-07-15 13:57 | Outpatient (BNVA) | payer MEDICAID, SELFPAY | PROVIDERS: PCP Family Medicine; Visit Provider Hospitalist | DX: J44.9 Chronic obstructive pulmonary disease, unspecified (principal); J98.4 Other disorders of lung; G47.33 Obstructive sleep apnea (adult) (pediatric); Z79.899 Other long term (current) drug therapy | CPT/HCPCS: 99212 ==

== ENCOUNTER → 2022-07-27 12:57 | Outpatient (BNVA) | payer MEDICAID, SELFPAY | PROVIDERS: PCP Family Medicine; Visit Provider Obstetrics & Gynecology | DX: Z13.89 Encounter for screening for other disorder (principal) ==

== ENCOUNTER 2022-08-09 08:26 | Outpatient (REF) | payer MEDICAID, SELFPAY ==
--- NOTE | ~2022-08-09 | CT_ITS ---
EXAMINATION: CT CHEST WITHOUT CONTRAST CLINICAL INFORMATION: Follow up pulmonary nodules. COMPARISON: CT chest 04/09/2021. TECHNIQUE: Multidetector volumetric CT imaging of the chest was done. Axial MIP volume rendering provided. Sagittal and coronal reformatted images were obtained. This CT examination was performed using dose optimization techniques as appropriate, variously including the following: *Automated exposure control *Adjustment of mA and/or kV according to patient size (this includes techniques or standardized protocols for targeted exams where dose is matched to indication/reason for exam; i.e. extremities or head) *Use of iterative reconstruction technique DLP: 256 mGy-cm FINDINGS: LUNGS: Again seen are multiple calcified pulmonary granulomas scattered throughout the lungs. No suspicious solid nodule is seen. Appearances are unchanged when compared to the prior study. The lungs are otherwise clear with no evidence of inflammation or solid noncalcified nodules. There is no finding seen in the lungs are well require any follow up. MEDIASTINUM: The mediastinum is normal. CORONARY ARTERY CALCIFICATION: Calcification in the left anterior descending artery. PLEURA: There is no pleural effusion. No pleural mass or thickening. AXILLA: No lymphadenopathy. UPPER ABDOMEN: The liver appears enlarged and demonstrates decreased attenuation consistent with hepatic steatosis. OSSEOUS STRUCTURES: Mild degenerative changes. CT/CT chest wo IV con IMPRESSION: 1. Multiple calcified pulmonary granulomas. No suspicious lung nodules are seen. No pulmonary finding is seen that would require follow up. 2. Incidentally noted hepatic steatosis, coronary calcifications and mild degenerative changes in the spine. Fleischner guidelines were followed.
== END 2022-08-09 08:27 | disposition home or self-care (01) ==
LOC: HO.CT 08:26
PROVIDERS: PCP Family Medicine; Visit Provider Family Medicine
DX: R91.1 Solitary pulmonary nodule (principal)
CPT/HCPCS: 71250

== ENCOUNTER 2022-08-12 08:41 | Emergency (ER) | payer MEDICAID, SELFPAY ==
--- NOTE | ~2022-08-12 | CT_ITS ---
EXAMINATION: CT SOFT TISSUE NECK WITH CONTRAST CLINICAL INFORMATION: Neck/lower jaw swelling, sore throat, and dyspnea. COMPARISON: None available. TECHNIQUE: Following the intravenous administration of 60 mL of Omnipaque 350 intravenous contrast, helical imaging was performed in the axial plane with generation of coronal and sagittal reformatted images. This CT examination was performed using dose optimization techniques as appropriate, variously including the following: *Automated exposure control *Adjustment of mA and/or kV according to patient size (this includes techniques or standardized protocols for targeted exams where dose is matched to indication/reason for exam; i.e. extremities or head) *Use of iterative reconstruction technique FINDINGS: The partially imaged orbital soft tissues, the parotid glands, the submandibular glands, and the thyroid gland are unremarkable. There is a 1.1 cm soft tissue nodule within the right tracheoesophageal groove just below the right thyroid lobe that could reflect a nonspecific enlarged lymph node versus a parathyroid adenoma that can be correlated with parathyroid hormone levels. A reniform-shaped 1.7 cm long transaxial dimension left jugulodigastric lymph node is most likely reactive. Additional nonpathologic size criteria lymph nodes throughout the suprahyoid and infrahyoid neck. There is mild apparent retropharyngeal soft tissue swelling at the C2-C4 levels that could reflect retropharyngeal cellulitis. No abscess is identified. There is no peritonsillar abscess. There is multilevel cervical spondylosis. No suspicious intraosseous lesions are identified. The imaged upper lungs are clear. CT/CT soft tissue neck w IV con IMPRESSION: There is mild apparent retropharyngeal soft tissue swelling at the C2-C4 levels that could reflect retropharyngeal cellulitis. No abscess is identified. There is no peritonsillar abscess. There is a 1.1 cm soft tissue nodule within the right tracheoesophageal groove just below the right thyroid lobe that could reflect a nonspecific enlarged lymph node versus a parathyroid adenoma that can be correlated with parathyroid hormone levels.
[2022-08-12 09:04] VITALS: BP 154/101; PULSE 93; RESP 20; TEMP 36.3; O2SAT 98; BMI 44.4
[2022-08-12 09:32] LABS: IDNOW Serial# 6674DD1D; Strep A Nucleic Acid Negative (Negative)
--- NOTE | 2022-08-12 10:17 | ED.NECK ---
HPI - Neck Pain/Injury General Chief Complaint: Neck Pain/Injury Stated Complaint: Neck pain/Ear pain Time Seen by Provider: 08/12/22 10:04 Source: patient Mode of arrival: ambulatory History of Present Illness HPI Narrative: 51-year-old female with past medical history of GERD, asthma/COPD overlap, fibromyalgia, HLD, HTN, obesity, sleep apnea, presenting to the ED complaining of increasing neck swelling/pain and sore throat x 6 days. Admits was seen at [facility] on Monday, tested negative for COVID/flu however symptoms persistent and worsening. Reports swelling/pain now affecting breathing with mild SOB. Denies known fever, chills, ear pain, CP MD complaint: neck pain Onset (ago): day(s) Related Data Home Medications Medication Instructions Recorded Confirmed docusate sodium 100 mg capsule 100 mg PO DAILY PRN Constipation 03/26/20 07/13/22 (Colace) lorazepam 2 mg tablet (Ativan) 2 mg PO BEDTIME PRN Anxiety 03/26/20 07/13/22 methocarbamol 500 mg tablet 500 mg PO QID PRN Muscle Spasm 03/26/20 07/13/22 pantoprazole 40 mg tablet,delayed 40 mg PO DAILY 03/26/20 07/13/22 release (Protonix) zolpidem 10 mg tablet (Ambien) 5 mg PO BEDTIME PRN Anxiety 03/26/20 07/13/22 tramadol 50 mg tablet 50 mg PO BID PRN Pain 05/20/20 07/13/22 CPAP (CPAP Machine/Device) #1 ea 12/24/20 07/13/22 cetirizine 10 mg tablet 10 mg PO DAILY 07/19/21 07/13/22 duloxetine 60 mg capsule,delayed 60 mg PO DAILY 07/19/21 07/13/22 release fluticasone propionate 50 2 spray intranasal DAILY 07/19/21 07/13/22 mcg/actuation nasal spray,suspension lisinopril 5 mg tablet 5 mg PO DAILY 07/19/21 07/13/22 albuterol sulfate 2.5 mg/3 mL 1 amp inhalation Q4H PRN Wheezing 01/17/22 07/13/22 (0.083 %) solution for nebulization gabapentin 400 mg capsule 400 cap PO BID 01/17/22 07/13/22 multivitamin-iron sulfate 15 1 tab PO DAILY 01/17/22 07/13/22 mg-folic acid 400 mcg tablet (Tab-A-Colton Multivitamin w-iron) naloxone 4 mg/actuation nasal spray spray intranasal 01/17/22 07/13/22 Previous Rx's Medication Instructions Recorded sumatriptan succinate 50 mg tablet 50 mg PO Q2-4H PRN migraine 11/05/20 headache #10 tabs albuterol sulfate 90 mcg/actuation 1 inh inhalation QID PRN shortness 12/28/20 aerosol inhaler of breath or wheezing #8.5 grams polyethylene glycol 3350 17 gram 17 g PO DAILY #30 ea 07/19/21 oral powder packet (Miralax) cholecalciferol (vitamin D3) 50 50 mcg PO DAILY #30 tabs 07/26/21 mcg (2,000 unit) tablet ezetimibe 10 mg tablet 10 mg PO DAILY 90 days #90 tabs 08/23/21 sennosides 8.6 mg tablet (Natural 8.6 mg PO BEDTIME constipation #30 11/17/21 Senna Laxative) tabs fluticasone fur. 200 mcg-umeclid 1 inh inhalation DAILY 30 days #60 11/19/21 62.5 mcg-vilant 25 mcg ea inhalat.powder (Trelegy Ellipta) umeclidinium 62.5 mcg-vilanterol 1 inh inhalation DAILY #60 ea 11/19/21 25 mcg/actuation powdr for inhalation (Anoro Ellipta) guaifenesin 1,200 mg tablet, 1,200 mg PO BID #14 tabs 12/13/21 extended release 12 hr (Mucinex) evolocumab 140 mg/mL subcutaneous 140 mg subcut Q2W 90 days #7 mL 12/31/21 pen injector (Dominic Sunshine) ketorolac 10 mg tablet 10 mg PO BID PRN pain #7 tabs 01/08/22 ibuprofen 600 mg tablet 600 mg PO Q8H PRN pain 14 days #30 01/17/22 tabs fenofibrate 54 mg tablet 54 mg PO DAILY #90 tabs 05/23/22 rosuvastatin 40 mg tablet 40 mg PO DAILY #90 tabs 05/23/22 famotidine 40 mg tablet 40 mg PO BEDTIME #30 tabs 05/27/22 montelukast 10 mg tablet 10 mg PO BEDTIME 30 days #30 tabs 07/15/22 (Singulair) roflumilast 250 mcg tablet 250 mcg PO DAILY 30 days #30 tabs 07/15/22 (Daliresp) amlodipine 10 mg tablet 10 mg PO DAILY #60 tabs 07/18/22 Allergies Allergy/AdvReac Type Severity Reaction Status Date / Time loratadine [From CLARITIN] Allergy Mild CHILLS AND Verified 07/27/22 13:05 DIFF BREATHING Review of Systems Review of Systems: Constitutional: No Fever, No Chills ENT/Mouth: No Ear Pain, +Nasal Congestion, No Sinus Pain, No Hoarseness, +sore throat, No Rhinorrhea, + Swallowing pain/Difficulty Cardiovascular: No Chest Pain, + SOB Respiratory: No Cough, No Sputum, No Wheezing Gastrointestinal: No Nausea, No Vomiting, No Diarrhea, No Constipation, No Abdominal pain Genitourinary: No Dysuria, No Urinary Frequency Musculoskeletal: No joint pain, No Myalgias, No Joint Swelling Skin: No Skin Lesions, No rash Neuro: No Weakness Yes all other systems are reviewed and are negative Constitutional: Constitutional: Reports as per [facility] Past Medical History Attestation statement: The following information was validated with the patient. Medical History Acid reflux Asthma-COPD overlap syndrome Chronic restrictive lung disease Coronary artery disease Epigastric pain Fatty liver Fibromyalgia Gall bladder polyp Hyperlipidemia Hypertension Obesity (BMI 30-39.9) NAM treated with BiPAP Pre-op chest exam Sleep apnea Surgical History History of cardiac cath History of endometrial ablation History of esophagogastroduodenoscopy History of partial hysterectomy Hx of tubal ligation Family History Family History Paternal Grandfather No problems noted. Father History of cancer Lung cancer Mother Heart disease Social History Social History Household Members: Significant Other and Children Housing: Apartment Do you presently have visiting nurse or other home services: No Alcohol intake: never Patient Tobacco Use Status: Former Tobacco user Tobacco use type: Cigarette Years Smoked: 5 years Smoked in Last 30 Days: No Second Hand Smoke Exposure: No Advance Directives: No Advance Directives Information Provided: Yes Patient : No service: No Current occupational status: disabled Sexual orientation: Straight/Heterosexual Gender identity: Female Physical Exam Vital Signs: Vital Signs: Last Vital Signs Temp 98.2 F 08/12/22 14:05 Pulse 79 08/12/22 14:05 Resp 19 08/12/22 14:05 BP 173/94 H 08/12/22 14:05 Pulse Ox 94 08/12/22 14:05 O2 Del Method 08/12/22 14:05 BMI result Body Mass Index 44.4 Const: General: cooperative, healthy appearing and no acute distress Nutritional Appearance: obese Orientation/consciousness: patient oriented x3 Limitations: no limitations HEENT: Head: Yes normal to inspection and Yes atraumatic Ears: hearing grossly normal bilaterally, TM's normal bilaterally, mastoids normal and periauricular adenopathy (swelling, mildly ttp) bilateral General nose exam: Normal external nose present Face and sinus: Yes normal facial exam Mouth: Normal oral and palatal mucosa present Throat: Yes posterior oropharynx normal, Yes tonsils normal, Yes uvula midline, No peritonsillar mass, No uvula laterally displaced and No uvular edema Eyes: General: appearance normal, both eyes and all related structures EOM: EOMs intact bilaterally Neck: Other: + swelling under jaw/chin with mild ttp. No erythema/warmth or crepitus Neck: Yes normal visual inspection, Yes no meningeal signs, Yes anterior neck swelling and No torticollis Resp: Effort & Inspection: normal respiratory effort, no respiratory distress, no stridor and no tripod positioning Auscultation: clear to auscultation bilaterally, no crackles and no rhonchi Cardio: Rate: regular rate Heart sounds: S1 normal heart sound present and S2 normal heart sound present Skin: Rashes: no rashes Wounds: no wounds Neuro: General: patient oriented x3, tone normal and no meningeal signs Gait exam (Neuro): Normal gait present Extrem: General: Yes normal to inspection Course Course Course Narrative: -no leukocytosis. ESR/CRP WNL CT soft tissue neck w IV con IMPRESSION: There is mild apparent retropharyngeal soft tissue swelling at the C2-C4 levels that could reflect retropharyngeal cellulitis. No abscess is identified. There is no peritonsillar abscess. ? There is a 1.1 cm soft tissue nodule within the right tracheoesophageal groove just below the right thyroid lobe that could reflect a nonspecific enlarged lymph node versus a parathyroid adenoma that can be correlated with parathyroid hormone levels. >> patient given dose of IV Decadron and Unasyn. Case discussed with ED attending Dr. Steel who also evaluated patient, will consult other hospitals for ENT specialtist -[phone]-- [facility] not open to ENT transfers unless patient is already established with them. [facility] closed due [facility] -[facility] accepted patient ED to ED transfer accepting physician Dr. Vang Medications Administered Discontinued Medications Generic Name Dose Route Start Last Admin Trade Name Freq PRN Reason Stop Dose Admin Dexamethasone Sodium Phosphate 10 mg 08/12/22 12:53 08/12/22 13:13 Dexamethasone Sod Phosphate 10 Mg/Ml Vial IVPUSH 08/12/22 12:54 10 mg ONCE ONE Administration Ampicillin Sodium/Sulbactam 100 mls @ 200 mls/hr 08/12/22 12:53 08/12/22 13:49 Sodium 3 gm/ Sodium Chloride IV 08/12/22 13:22 Infused ONCE ONE Infusion Iohexol 100 ml 08/12/22 12:06 08/12/22 12:06 Iohexol 350 Mg/Ml 100 Ml Infus..Btl IV 08/12/22 12:07 60 ml ONCE ONE Administration Medical Decision Making Medical Decision Making MDM Narrative: 51-year-old female with past medical history of GERD, asthma/COPD overlap, fibromyalgia, HLD, HTN, obesity, sleep apnea, presenting to the ED complaining of increasing neck swelling/pain and sore throat x 6 days. On exam hypertensive, nontoxic, interior lower jaw/preauricular swelling and tenderness noted. Mastoids WNL. Posterior or pharynx WNL without uvular deviation. No stridor. Concern for strep pharyngitis vs viral syndrome vs Alli's angina vs soft tissue edema/cellulitis. Lower suspicion for [employer]/epiglottitis Plan:, 19/influenza/RSV testing, rapid strep, labs, CT with IV contrast Please refer to course for remaining clinical decision making, interpretation of labs/imaging results, and discussions with consultants and/or family members. Differential Diagnosis Differential Diagnoses: The differential diagnosis associated with the presentation includes as above Admission/Observation Consideration of admission/observation: Escalation of care including admission/observation considered Lab Data MDM Lab Attestation statement: I reviewed the patient's lab results. 08/12/22 10:32 08/12/22 10:32 Labs: Lab Results 08/12/22 08/12/22 08/12/22 Range/Units 09:10 10:32 10:32 WBC 5.9 (4.8-10.8) X10*3/uL RBC 4.44 (4.20-5.50) X10*6/uL Hgb 13.4 (12.0-16.0) g/dl Hct 40.5 (37.0-47.0) % MCV 91.2 (80.0-98.0) fL MCH 30.2 (27.0-33.0) pg MCHC 33.1 (31.0-35.0) g/dl RDW 13.2 (11.0-16.0) % Plt Count 252 (160-400) X10*3/uL MPV 10.7 (9.4-12.3) fL Immature Gran % (Auto) 0.2 (0.0-0.4) % Neut % (Auto) 49.0 (45-73) % Lymph % (Auto) 40.9 H (20-40) % [place] % (Auto) 8.8 (2-11) % Eos % (Auto) 0.8 (0-4) % Baso % (Auto) 0.3 (0-2) % Lymph # (Auto) 2.4 (1.2-4.9) X10*3/uL [place] # (Auto) 0.5 (0.1-1.2) X10*3/uL Eos # (Auto) 0.1 (0.0-0.4) X10*3/uL Baso # (Auto) 0.0 (0.0-0.2) X10*3/uL Abs Immat Gran (auto) 0.01 (0.00-0.03) X10*3/uL Absolute Neuts (auto) 2.9 (2.0-8.3) x10*3/uL Absolute Nucleated RBC 0.000 (0.0-0.012) X10*3/uL Nucleated RBC % (auto) 0.0 (0.0-0.2) /100WBC ESR 16 (0-20) MM/HR Sodium (135-145) mmol/L Potassium (3.3-5.1) mmol/L Chloride (96-108) mmol/L Carbon Dioxide (22-29) mmol/L Anion Gap (12-20) BUN (9-16) mg/dL Creatinine (0.5-1.4) mg/dL Estim Creat Clear Calc Estimated GFR Random Glucose (60-115) mg/dL Calcium (8.4-10.2) mg/dL C-Reactive Protein (< or = 0.50) mg/dL Influenza Type A (PCR) (Negative) Influenza Type B (PCR) (Negative) RSV RNA Qual (PCR) (Negative) SARS-CoV-2 RNA (RT-PCR) (Negative) S. pyogenes GrpA MIRIAM Negative (Negative) 08/12/22 08/12/22 Range/Units 10:32 10:32 WBC (4.8-10.8) X10*3/uL RBC (4.20-5.50) X10*6/uL Hgb (12.0-16.0) g/dl Hct (37.0-47.0) % MCV (80.0-98.0) fL MCH (27.0-33.0) pg MCHC (31.0-35.0) g/dl RDW (11.0-16.0) % Plt Count (160-400) X10*3/uL MPV (9.4-12.3) fL Immature Gran % (Auto) (0.0-0.4) % Neut % (Auto) (45-73) % Lymph % (Auto) (20-40) % [place] % (Auto) (2-11) % Eos % (Auto) (0-4) % Baso % (Auto) (0-2) % Lymph # (Auto) (1.2-4.9) X10*3/uL [place] # (Auto) (0.1-1.2) X10*3/uL Eos # (Auto) (0.0-0.4) X10*3/uL Baso # (Auto) (0.0-0.2) X10*3/uL Abs Immat Gran (auto) (0.00-0.03) X10*3/uL Absolute Neuts (auto) (2.0-8.3) x10*3/uL Absolute Nucleated RBC (0.0-0.012) X10*3/uL Nucleated RBC % (auto) (0.0-0.2) /100WBC ESR (0-20) MM/HR Sodium 142 (135-145) mmol/L Potassium 4.3 (3.3-5.1) mmol/L Chloride 109 H (96-108) mmol/L Carbon Dioxide 23 (22-29) mmol/L Anion Gap 14 (12-20) BUN 11 (9-16) mg/dL Creatinine 0.76 (0.5-1.4) mg/dL Estim Creat Clear Calc 92.0 Estimated GFR > 60 Random Glucose 113 (60-115) mg/dL Calcium 9.7 (8.4-10.2) mg/dL C-Reactive Protein 0.41 (< or = 0.50) mg/dL Influenza Type A (PCR) NEGATIVE (Negative) Influenza Type B (PCR) NEGATIVE (Negative) RSV RNA Qual (PCR) NEGATIVE (Negative) SARS-CoV-2 RNA (RT-PCR) NEGATIVE (Negative) S. pyogenes GrpA MIRIAM (Negative) Radiology Impression Discussion of test interpretation with radiology: I have reviewed the radiologist's reading. External Record Review External record reviewed: Office record and Outpatient record Prescription Management I considered prescription management with: Pain Medication, Antiviral and Antibiotic Chronic Conditions Patient?s care impacted by: Other Critical Care Time Critical Care Time Critical Care Time: Yes Total Critical Care Time: 45 Attestation: I have personally provided critical care time exclusive of time spent on separately billable procedures. Time includes review of lab data, radiology results, discussion with consultants, and monitoring for potential decompensation. Intervention performed as documented. Discharge Plan Discharge Clinical Impression: Oropharynx infection Prescriptions: No Action cholecalciferol (vitamin D3) 50 mcg (2,000 unit) tablet 50 mcg PO DAILY Qty: 30 6RF ezetimibe 10 mg tablet 10 mg PO DAILY 90 Days Qty: 90 3RF sennosides [Natural Senna Laxative] 8.6 mg tablet 8.6 mg PO BEDTIME Qty: 30 3RF Repatha SureClick 140 mg/mL pen injector 140 mg subcut Q2W 90 Days Qty: 7 3RF rosuvastatin 40 mg tablet 40 mg PO DAILY Qty: 90 3RF fenofibrate 54 mg tablet 54 mg PO DAILY Qty: 90 3RF famotidine 40 mg tablet 40 mg PO BEDTIME Qty: 30 3RF amlodipine 10 mg tablet 10 mg PO DAILY Qty: 60 3RF sumatriptan succinate 50 mg tablet 50 mg PO Q2-4H PRN (Reason: migraine headache) Qty: 10 0RF Rx Instructions: do not exceed 4 doses per 24 hrs tramadol 50 mg Tablet 50 mg PO BID PRN (Reason: Pain) albuterol sulfate 90 mcg/actuation HFA aerosol inhaler 1 inh inhalation QID PRN (Reason: shortness of breath or wheezing) Qty: 8.5 0RF Mucinex 1,200 mg tablet extended release 12hr 1,200 mg PO BID Qty: 14 0RF albuterol sulfate 2.5 mg /3 mL (0.083 %) solution for nebulization 1 amp inhalation Q4H PRN (Reason: Wheezing) gabapentin 400 mg capsule 400 cap PO BID naloxone 4 mg/actuation spray,non-aerosol intranasal Tab-A-Colton Multivitamin w-iron 15 mg iron- 400 mcg tablet 1 tab PO DAILY ketorolac 10 mg tablet 10 mg PO BID PRN (Reason: pain) Qty: 7 0RF Rx Instructions: Do not use these medications with Aleve, NSAIDs, only use Tylenol or tramadol for breakthrough pain lorazepam [Ativan] 2 mg tablet 2 mg PO BEDTIME PRN (Reason: Anxiety) zolpidem [Ambien] 10 mg tablet 5 mg PO BEDTIME PRN (Reason: Anxiety) methocarbamol 500 mg tablet 500 mg PO QID PRN (Reason: Muscle Spasm) pantoprazole [Protonix] 40 mg tablet,delayed release (DR/EC) 40 mg PO DAILY docusate sodium [Colace] 100 mg capsule 100 mg PO DAILY PRN (Reason: Constipation) (DME) CPAP Machine/Device Device See Rx Instructions .ROUTE .MEDSUPPLY Qty: 1 Rx Instructions: As directed duloxetine 60 mg capsule,delayed release(DR/EC) 60 mg PO DAILY fluticasone propionate 50 mcg/actuation spray,suspension 2 spray intranasal DAILY lisinopril 5 mg tablet 5 mg PO DAILY cetirizine 10 mg tablet 10 mg PO DAILY polyethylene glycol 3350 [Miralax] 17 gram powder in packet 17 g PO DAILY Qty: 30 5RF roflumilast [Daliresp] 250 mcg tablet 250 mcg PO DAILY 30 Days Qty: 30 11RF montelukast [Singulair] 10 mg tablet 10 mg PO BEDTIME 30 Days Qty: 30 11RF Anoro Ellipta 62.5-25 mcg/actuation blister with device 1 inh inhalation DAILY Qty: 60 11RF Trelegy Ellipta 200-62.5-25 mcg blister with device 1 inh inhalation DAILY 30 Days Qty: 60 12RF ibuprofen 600 mg tablet 600 mg PO Q8H PRN (Reason: pain) 14 Days Qty: 30 0RF
[2022-08-12 10:39] LABS: MANUAL DIFF FLAG NO
[2022-08-12 10:40] LABS: Basophils Percent Auto 0.3 % (0-2); Eosinophils Absolute Auto 0.1 X10*3/uL (0.0-0.4); Eosinophils Percent Auto 0.8 % (0-4); Hematocrit 40.5 % (37.0-47.0); Hemoglobin 13.4 g/dl (12.0-16.0); Imm Gran Abs Auto 0.01 X10*3/uL (0.00-0.03); Imm Gran Pct Auto 0.2 % (0.0-0.4); Lymphocytes Absolute Auto 2.4 X10*3/uL (1.2-4.9); Lymphocytes Percent Auto 40.9 % (20-40); Mean Corpuscular HGB Conc 33.1 g/dl (31.0-35.0); Mean Corpuscular Hemoglobin 30.2 pg (27.0-33.0); Mean Corpuscular Volume 91.2 fL (80.0-98.0); Mean Platelet Volume 10.7 fL (9.4-12.3); Monocytes Absolute Auto 0.5 X10*3/uL (0.1-1.2); Monocytes Percent Auto 8.8 % (2-11); Neutrophils Absolute Auto 2.9 x10*3/uL (2.0-8.3); Platelet Count 252 X10*3/uL (160-400); Red Blood Count 4.44 X10*6/uL (4.20-5.50); Red Cell Distribution Width 13.2 % (11.0-16.0); White Blood Count 5.9 X10*3/uL (4.8-10.8)
[2022-08-12 10:52] LABS: Anion Gap 14 (12-20); Blood Urea Nitrogen 11 mg/dL (9-16); C Reactive Protein 0.41 mg/dL (< or = 0.50); Calcium 9.7 mg/dL (8.4-10.2); Carbon Dioxide 23 mmol/L (22-29); Chloride 109 mmol/L (96-108); Estimated Glomerular Filt Rate > 60; Glucose Random 113 mg/dL (60-115); Potassium 4.3 mmol/L (3.3-5.1); Sodium 142 mmol/L (135-145)
[2022-08-12 11:22] LABS: Erythrocyte Sedimentation Rate 16 MM/HR (0-20)
[2022-08-12 11:30] LABS: Influenza A PCR NEGATIVE (Negative); Influenza B PCR NEGATIVE (Negative); Resp Syncy Virus RNA Qual PCR NEGATIVE (Negative); SARS COV2 PCR INHOUSE NEGATIVE (Negative)
[2022-08-12] MEDS: iohexoL 350 MG/ML 100 ML INFUS..BTL IV (12:06)
[2022-08-12] MEDS: dexAMETHasone sod phosphate 10 MG/ML VIAL IVPUSH (13:13)
[2022-08-12] MEDS: Ampicillin Sodium/Sulbactam Na 3 GM in 0.9 % Sodium Chloride 100 ML IV (13:13)
--- NOTE | 2022-08-12 13:40 | MHC.EDTECH ---
@1340 called [facility] transfer line per request of CHRISTIE Bailey. The individual on the phone stated they were closed to many types of transfers. I suggested I transfer the call to CHRISTIE Bailey so she could tell them the diagnosis to see if they would be able to accept the patient. The individual agreed to speak with Lynn. I transferred the call to [facility]. Waiting to hear back at this time.
--- NOTE | 2022-08-12 13:53 | MHC.EDTECH ---
@[id number] was notified by Lynn that [facility] wouldn't accept the patient. Called [facility] transfer line to see if they would accept the patient. The individual on the phone said they wouldn't be able to accept the patient due to capacity.
--- NOTE | 2022-08-12 14:02 | MHC.EDTECH ---
@[phone] called [facility] transfer line. Gave patient demographics over the phone and the provider's (Lynn Curry) name. The individual asked to speak with Lynn about the diagnosis. She took the call right away.
[2022-08-12 14:05] VITALS: BP 173/94; PULSE 79; RESP 19; TEMP 36.8; O2SAT 94
--- NOTE | 2022-08-12 14:07 | PC.NURSE ---
PT TRANSFER TO [facility], FOR HIGHER LEVEL OF CARE.
--- NOTE | 2022-08-12 14:15 | MHC.EDTECH ---
@[id number] CHRISTIE Bailey notified me the patient was accepted to [facility]. The patient was accepted to their Emergency Room. Accepting doctor is Dr. Garcia.
== END 2022-08-12 15:03 | disposition short-term general hospital (02) ==
PROVIDERS: Physician Assistant; Emergency Provider Emergency Medicine
DX: J39.1 Other abscess of pharynx (principal); Z20.822 Contact with and (suspected) exposure to COVID-19; Z20.828 Contact with and (suspected) exposure to other viral communicable diseases; I10 Essential (primary) hypertension; E78.5 Hyperlipidemia, unspecified; E66.9 Obesity, unspecified; Z68.41 Body mass index [BMI] 40.0-44.9, adult; Z87.891 Personal history of nicotine dependence; Z79.899 Other long term (current) drug therapy; Z79.02 Long term (current) use of antithrombotics/antiplatelets
CPT/HCPCS: 0241U; 36415; 70491; 80048; 85025; 85652; 86140; 87651; 96365; 96375; 99285; J0295; J1100; Q9967

== ENCOUNTER 2022-09-13 08:33 | Outpatient (REF) | payer MEDICAID, SELFPAY ==
--- NOTE | ~2022-09-13 | CT_ITS ---
EXAMINATION: CT SOFT TISSUE NECK WITH CONTRAST CLINICAL INFORMATION: Retropharyngeal/parapharyngeal swelling. COMPARISON: CT scan of the neck 08/12/2022. TECHNIQUE: Following the intravenous administration of 60 mL of Omnipaque 350 intravenous contrast, helical imaging was performed in the axial plane with generation of coronal and sagittal reformatted images. This CT examination was performed using dose optimization techniques as appropriate, variously including the following: *Automated exposure control *Adjustment of mA and/or kV according to patient size (this includes techniques or standardized protocols for targeted exams where dose is matched to indication/reason for exam; i.e. extremities or head) *Use of iterative reconstruction technique DLP: 355 mGy-cm FINDINGS: The previously demonstrated soft tissue nodule in the right tracheoesophageal groove is smaller compared to the prior study and measures 0.9 cm. The reniform 1.7 cm long transaxial left level IIA lymph node is unchanged. Small lymph nodes are also demonstrated at multiple other levels bilaterally, which are not pathologically enlarged. The parotid glands are relatively fatty bilaterally with small intraparenchymal nodes. The submandibular glands are moderately prominent, but appear symmetric in size and attenuation. The previously demonstrated retroperitoneal soft tissue swelling between C2 and C4 is less prominent compared to prior imaging and no discrete fluid collections or abscesses are demonstrated. The laryngeal structures are normal. The parapharyngeal fat is preserved. The carotid sheath vasculature opacifies normally. No extra mucosal soft tissue mass or other fluid collection is seen. The thyroid gland is normal. The superior mediastinum is suboptimally visualized due to extensive artifact due to the patient's body habitus. The lung apices are clear. The mastoid air cells and visualized portions of the paranasal sinuses are well-aerated. The temporomandibular joints are normal. No periapical disease is identified; there is periodontal disease bilaterally. There is a torus palatinus. There are no acute osseous findings. The posterior arch of C1 is unfused which is a normal variant. There are degenerative changes in the cervical spine. The imaged portions of the brain parenchyma are unremarkable. CT/CT soft tissue neck w IV con IMPRESSION: 1. The retropharyngeal soft tissue structures appear normal on the current study and no masses or fluid collections are identified. 2. The study redemonstrates multilevel mildly prominent lymph nodes as described above, not significantly changed compared to prior imaging although the superior mediastinum is suboptimally visualized due to patient body habitus on the current study.
== END 2022-09-13 08:34 | disposition home or self-care (01) ==
LOC: HO.CT 08:33
PROVIDERS: Visit Provider Internal Medicine
DX: J39.0 Retropharyngeal and parapharyngeal abscess (principal)
CPT/HCPCS: 70491

== ENCOUNTER 2022-09-30 09:52 | Outpatient (REF) | payer MEDICAID, SELFPAY ==
[2022-09-30 10:51] LABS: Cholesterol 217 mg/dL; HDL Cholesterol 42 mg/dL; LDL Cholesterol Calculated 124 mg/dl; Triglycerides 258 mg/dL
== END 2022-09-30 09:53 | disposition home or self-care (01) ==
LOC: HO.LAB 09:52
PROVIDERS: Visit Provider Nurse Practitioner Family
DX: E78.5 Hyperlipidemia, unspecified (principal)
CPT/HCPCS: 36415; 80061

== ENCOUNTER 2022-10-10 11:41 | Emergency (ER) | payer MEDICAID, SELFPAY ==
--- NOTE | 2022-10-10 11:51 | ED.GENADULT ---
HPI - General Adult General Chief complaint: General Medical Stated complaint: sore throat Related Data Home Medications Medication Instructions Recorded Confirmed docusate sodium 100 mg capsule 100 mg PO DAILY PRN Constipation 03/26/20 07/13/22 (Colace) lorazepam 2 mg tablet (Ativan) 2 mg PO BEDTIME PRN Anxiety 03/26/20 07/13/22 methocarbamol 500 mg tablet 500 mg PO QID PRN Muscle Spasm 03/26/20 07/13/22 pantoprazole 40 mg tablet,delayed 40 mg PO DAILY 03/26/20 07/13/22 release (Protonix) zolpidem 10 mg tablet (Ambien) 5 mg PO BEDTIME PRN Anxiety 03/26/20 07/13/22 tramadol 50 mg tablet 50 mg PO BID PRN Pain 05/20/20 07/13/22 CPAP (CPAP Machine/Device) #1 ea 12/24/20 07/13/22 cetirizine 10 mg tablet 10 mg PO DAILY 07/19/21 07/13/22 duloxetine 60 mg capsule,delayed 60 mg PO DAILY 07/19/21 07/13/22 release fluticasone propionate 50 2 spray intranasal DAILY 07/19/21 07/13/22 mcg/actuation nasal spray,suspension lisinopril 5 mg tablet 5 mg PO DAILY 07/19/21 07/13/22 albuterol sulfate 2.5 mg/3 mL 1 amp inhalation Q4H PRN Wheezing 01/17/22 07/13/22 (0.083 %) solution for nebulization gabapentin 400 mg capsule 400 cap PO BID 01/17/22 07/13/22 multivitamin-iron sulfate 15 1 tab PO DAILY 01/17/22 07/13/22 mg-folic acid 400 mcg tablet (Tab-A-Colton Multivitamin w-iron) naloxone 4 mg/actuation nasal spray spray intranasal 01/17/22 07/13/22 Previous Rx's Medication Instructions Recorded sumatriptan succinate 50 mg tablet 50 mg PO Q2-4H PRN migraine 11/05/20 headache #10 tabs albuterol sulfate 90 mcg/actuation 1 inh inhalation QID PRN shortness 12/28/20 aerosol inhaler of breath or wheezing #8.5 grams polyethylene glycol 3350 17 gram 17 g PO DAILY #30 ea 07/19/21 oral powder packet (Miralax) cholecalciferol (vitamin D3) 50 50 mcg PO DAILY #30 tabs 07/26/21 mcg (2,000 unit) tablet sennosides 8.6 mg tablet (Natural 8.6 mg PO BEDTIME constipation #30 11/17/21 Senna Laxative) tabs fluticasone fur. 200 mcg-umeclid 1 inh inhalation DAILY 30 days #60 11/19/21 62.5 mcg-vilant 25 mcg ea inhalat.powder (Trelegy Ellipta) umeclidinium 62.5 mcg-vilanterol 1 inh inhalation DAILY #60 ea 11/19/21 25 mcg/actuation powdr for inhalation (Anoro Ellipta) guaifenesin 1,200 mg tablet, 1,200 mg PO BID #14 tabs 12/13/21 extended release 12 hr (Mucinex) evolocumab 140 mg/mL subcutaneous 140 mg subcut Q2W 90 days #7 mL 12/31/21 pen injector (Dominic Sunshine) ketorolac 10 mg tablet 10 mg PO BID PRN pain #7 tabs 01/08/22 ibuprofen 600 mg tablet 600 mg PO Q8H PRN pain 14 days #30 01/17/22 tabs fenofibrate 54 mg tablet 54 mg PO DAILY #90 tabs 05/23/22 rosuvastatin 40 mg tablet 40 mg PO DAILY #90 tabs 05/23/22 famotidine 40 mg tablet 40 mg PO BEDTIME #30 tabs 05/27/22 montelukast 10 mg tablet 10 mg PO BEDTIME 30 days #30 tabs 07/15/22 (Singulair) roflumilast 250 mcg tablet 250 mcg PO DAILY 30 days #30 tabs 07/15/22 (Daliresp) amlodipine 10 mg tablet 10 mg PO DAILY #60 tabs 07/18/22 ezetimibe 10 mg tablet 10 mg PO DAILY 90 days #90 tabs 09/16/22 Allergies Allergy/AdvReac Type Severity Reaction Status Date / Time loratadine [From CLARITIN] Allergy Mild CHILLS AND Verified 07/27/22 13:05 DIFF BREATHING PMFSH Past Medical History Medical History Acid reflux Asthma-COPD overlap syndrome Chronic restrictive lung disease Coronary artery disease Epigastric pain Fatty liver Fibromyalgia Gall bladder polyp Hyperlipidemia Hypertension Obesity (BMI 30-39.9) NAM treated with BiPAP Pre-op chest exam Sleep apnea Surgical History History of cardiac cath History of endometrial ablation History of esophagogastroduodenoscopy History of partial hysterectomy Hx of tubal ligation Family History Family History Paternal Grandfather No problems noted. Father History of cancer Lung cancer Mother Heart disease Social History Social History Household Members: Significant Other and Children Housing: Apartment Do you presently have visiting nurse or other home services: No Alcohol intake: never Patient Tobacco Use Status: Former Tobacco user Tobacco use type: Cigarette Years Smoked: 5 years Second Hand Smoke Exposure: No Advance Directives: No service: No Current occupational status: disabled Sexual orientation: Straight/Heterosexual Gender identity: Female Physical Exam ED Vital Signs: Vital Signs - 24 hr 10/10/22 11:52 Temperature 98.1 F Pulse Rate 100 Respiratory Rate 18 Blood Pressure 153/104 H Pulse Oximetry 98 Oxygen Delivery Method Room Air BMI result Body Mass Index 43.0 Course Course Course Narrative: RME - 51yo female with history of COPD and asthma presenting for sore throat for 4 months. Patient has had an CT one month ago which showed normal structures. Airway patent, tonsils are erythematous and edematous bilaterally with no exudate. Plan: strep swab Discharge Plan Discharge Clinical Impression: Chronic sore throat Patient Disposition: Elopement Prescriptions: No Action cholecalciferol (vitamin D3) 50 mcg (2,000 unit) tablet 50 mcg PO DAILY Qty: 30 6RF sennosides [Natural Senna Laxative] 8.6 mg tablet 8.6 mg PO BEDTIME Qty: 30 3RF Repatha SureClick 140 mg/mL pen injector 140 mg subcut Q2W 90 Days Qty: 7 3RF rosuvastatin 40 mg tablet 40 mg PO DAILY Qty: 90 3RF fenofibrate 54 mg tablet 54 mg PO DAILY Qty: 90 3RF famotidine 40 mg tablet 40 mg PO BEDTIME Qty: 30 3RF amlodipine 10 mg tablet 10 mg PO DAILY Qty: 60 3RF ezetimibe 10 mg tablet 10 mg PO DAILY 90 Days Qty: 90 3RF sumatriptan succinate 50 mg tablet 50 mg PO Q2-4H PRN (Reason: migraine headache) Qty: 10 0RF Rx Instructions: do not exceed 4 doses per 24 hrs tramadol 50 mg Tablet 50 mg PO BID PRN (Reason: Pain) albuterol sulfate 90 mcg/actuation HFA aerosol inhaler 1 inh inhalation QID PRN (Reason: shortness of breath or wheezing) Qty: 8.5 0RF Mucinex 1,200 mg tablet extended release 12hr 1,200 mg PO BID Qty: 14 0RF albuterol sulfate 2.5 mg /3 mL (0.083 %) solution for nebulization 1 amp inhalation Q4H PRN (Reason: Wheezing) gabapentin 400 mg capsule 400 cap PO BID naloxone 4 mg/actuation spray,non-aerosol intranasal Tab-A-Colton Multivitamin w-iron 15 mg iron- 400 mcg tablet 1 tab PO DAILY ketorolac 10 mg tablet 10 mg PO BID PRN (Reason: pain) Qty: 7 0RF Rx Instructions: Do not use these medications with Aleve, NSAIDs, only use Tylenol or tramadol for breakthrough pain lorazepam [Ativan] 2 mg tablet 2 mg PO BEDTIME PRN (Reason: Anxiety) zolpidem [Ambien] 10 mg tablet 5 mg PO BEDTIME PRN (Reason: Anxiety) methocarbamol 500 mg tablet 500 mg PO QID PRN (Reason: Muscle Spasm) pantoprazole [Protonix] 40 mg tablet,delayed release (DR/EC) 40 mg PO DAILY docusate sodium [Colace] 100 mg capsule 100 mg PO DAILY PRN (Reason: Constipation) (DME) CPAP Machine/Device Device See Rx Instructions .ROUTE .MEDSUPPLY Qty: 1 Rx Instructions: As directed duloxetine 60 mg capsule,delayed release(DR/EC) 60 mg PO DAILY fluticasone propionate 50 mcg/actuation spray,suspension 2 spray intranasal DAILY lisinopril 5 mg tablet 5 mg PO DAILY cetirizine 10 mg tablet 10 mg PO DAILY polyethylene glycol 3350 [Miralax] 17 gram powder in packet 17 g PO DAILY Qty: 30 5RF roflumilast [Daliresp] 250 mcg tablet 250 mcg PO DAILY 30 Days Qty: 30 11RF montelukast [Singulair] 10 mg tablet 10 mg PO BEDTIME 30 Days Qty: 30 11RF Anoro Ellipta 62.5-25 mcg/actuation blister with device 1 inh inhalation DAILY Qty: 60 11RF Trelegy Ellipta 200-62.5-25 mcg blister with device 1 inh inhalation DAILY 30 Days Qty: 60 12RF ibuprofen 600 mg tablet 600 mg PO Q8H PRN (Reason: pain) 14 Days Qty: 30 0RF Discharge Date/Time: 10/10/22 13:59
[2022-10-10 11:52] VITALS: BP 153/104; PULSE 100; RESP 18; TEMP 36.7; O2SAT 98; BMI 43.0
== END 2022-10-10 13:59 | disposition left against medical advice (07) ==
PROVIDERS: Emergency Provider Emergency Medicine
DX: J31.2 Chronic pharyngitis (principal)
CPT/HCPCS: 99281; 99283

== ENCOUNTER 2022-10-27 06:12 | Emergency (ER) | payer MEDICAID, SELFPAY ==
--- NOTE | ~2022-10-27 | CT_ITS ---
EXAMINATION: CT SOFT TISSUE NECK WITH CONTRAST CLINICAL INFORMATION: Neck swelling. COMPARISON: None TECHNIQUE: Following the administration of 65 mL of Omnipaque 300 intravenous contrast, helical imaging was performed in the axial plane with generation of coronal and sagittal reformatted images. This CT examination was performed using dose optimization techniques as appropriate, variously including the following: *Automated exposure control *Adjustment of mA and/or kV according to patient size (this includes techniques or standardized protocols for targeted exams where dose is matched to indication/reason for exam; i.e. extremities or head) *Use of iterative reconstruction technique DLP: 869 mGy-cm FINDINGS: The nasopharynx appears normal. There is no retropharyngeal adenopathy. No retropharyngeal fluid collection is seen. The palatine tonsils are prominent. No peritonsillar collection is seen. The base of tongue appears normal. There is no laryngeal lesion. The parotid and submandibular glands appear normal. There is an enlarged (but morphologically normal) left level IIa lymph node measuring 2.1 cm. No additional enlarged lymph nodes are seen. The thyroid gland is unremarkable. No enlarged upper mediastinal lymph nodes are seen. There is no consolidation within the upper lungs. Major neck vessels are patent. There is no acute intracranial abnormality. The spine is intact with mild degenerative changes noted. CT/CT soft tissue neck w IV con IMPRESSION: No neck mass or inflammatory changes identified. Enlarged reactive appearing left level IIa lymph node which could be clinically followed.
--- NOTE | ~2022-10-27 | XR_ITS ---
EXAMINATION: XR CHEST CLINICAL INFORMATION: Cough. COMPARISON: 12/25/2021 chest radiograph. TECHNIQUE: 2 views of the chest were obtained. FINDINGS: No significant abnormality is noted involving the heart, lungs, mediastinum, bony thorax or soft tissues. XR/XR chest 2V IMPRESSION: No acute cardiopulmonary process.
[2022-10-27 06:13] VITALS: BP 158/64; PULSE 99; RESP 18; TEMP 36.6; O2SAT 97; BMI 43.6
[2022-10-27 07:50] VITALS: BP 159/76; PULSE 85; RESP 16; TEMP 36.8; O2SAT 96
--- NOTE | 2022-10-27 08:16 | ED.GENADULT ---
HPI - General Adult General Chief complaint: General Medical Stated complaint: sinus pain? 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 Patient reports that she has been seen multiple times here at [facility], July 2022 she was transferred to [facility] where they ?did nothing . Patient was then seen at [facility] of [facility], who did an upper endoscopy but patient was told that it was normal. Patient reports that over the last couple weeks she has had worsening pain with swallowing, difficulty breathing, and unable to be solid foods secondary to the swelling and pain. She reports that her symptoms worsen when she is lying down. She denies any fevers or chills, she reports associated sinus pressure and pain, and she also reports that over the last month she has had a productive cough with green/yellow sputum. She admits to having some shortness of breath because of the swelling in her throat especially when she is lying down. Patient reports although she has been having these symptoms for the last 4 months this is the worst that it has ever been in regards to pain and swelling. She reports that she is unable to lie down flat because of the swelling in her neck she becomes very short of breath. She states that she cannot eat any solid foods anymore due to her symptoms. No other complaints or concerns at this time. MD complaint: Neck swelling Onset (ago): month(s) Radiation: non-radiation Pain Consistency: constant Relieving factors: none Exacerbating factors: none Associated symptoms: denies other symptoms Treatments prior to arrival: none Related Data Home Medications Medication Instructions Recorded Confirmed docusate sodium 100 mg capsule 100 mg PO DAILY PRN Constipation 03/26/20 07/13/22 (Colace) lorazepam 2 mg tablet (Ativan) 2 mg PO BEDTIME PRN Anxiety 03/26/20 07/13/22 methocarbamol 500 mg tablet 500 mg PO QID PRN Muscle Spasm 03/26/20 07/13/22 pantoprazole 40 mg tablet,delayed 40 mg PO DAILY 03/26/20 07/13/22 release (Protonix) zolpidem 10 mg tablet (Ambien) 5 mg PO BEDTIME PRN Anxiety 03/26/20 07/13/22 tramadol 50 mg tablet 50 mg PO BID PRN Pain 05/20/20 07/13/22 CPAP (CPAP Machine/Device) #1 ea 12/24/20 07/13/22 cetirizine 10 mg tablet 10 mg PO DAILY 07/19/21 07/13/22 duloxetine 60 mg capsule,delayed 60 mg PO DAILY 07/19/21 07/13/22 release fluticasone propionate 50 2 spray intranasal DAILY 07/19/21 07/13/22 mcg/actuation nasal spray,suspension lisinopril 5 mg tablet 5 mg PO DAILY 07/19/21 07/13/22 albuterol sulfate 2.5 mg/3 mL 1 amp inhalation Q4H PRN Wheezing 01/17/22 07/13/22 (0.083 %) solution for nebulization gabapentin 400 mg capsule 400 cap PO BID 01/17/22 07/13/22 multivitamin-iron sulfate 15 1 tab PO DAILY 01/17/22 07/13/22 mg-folic acid 400 mcg tablet (Tab-A-Colton Multivitamin w-iron) naloxone 4 mg/actuation nasal spray spray intranasal 01/17/22 07/13/22 Previous Rx's Medication Instructions Recorded sumatriptan succinate 50 mg tablet 50 mg PO Q2-4H PRN migraine 11/05/20 headache #10 tabs albuterol sulfate 90 mcg/actuation 1 inh inhalation QID PRN shortness 12/28/20 aerosol inhaler of breath or wheezing #8.5 grams polyethylene glycol 3350 17 gram 17 g PO DAILY #30 ea 07/19/21 oral powder packet (Miralax) cholecalciferol (vitamin D3) 50 50 mcg PO DAILY #30 tabs 07/26/21 mcg (2,000 unit) tablet sennosides 8.6 mg tablet (Natural 8.6 mg PO BEDTIME constipation #30 11/17/21 Senna Laxative) tabs fluticasone fur. 200 mcg-umeclid 1 inh inhalation DAILY 30 days #60 11/19/21 62.5 mcg-vilant 25 mcg ea inhalat.powder (Trelegy Ellipta) umeclidinium 62.5 mcg-vilanterol 1 inh inhalation DAILY #60 ea 11/19/21 25 mcg/actuation powdr for inhalation (Anoro Ellipta) guaifenesin 1,200 mg tablet, 1,200 mg PO BID #14 tabs 12/13/21 extended release 12 hr (Mucinex) evolocumab 140 mg/mL subcutaneous 140 mg subcut Q2W 90 days #7 mL 12/31/21 pen injector (Dominic Sunshine) ketorolac 10 mg tablet 10 mg PO BID PRN pain #7 tabs 01/08/22 ibuprofen 600 mg tablet 600 mg PO Q8H PRN pain 14 days #30 01/17/22 tabs fenofibrate 54 mg tablet 54 mg PO DAILY #90 tabs 05/23/22 rosuvastatin 40 mg tablet 40 mg PO DAILY #90 tabs 05/23/22 famotidine 40 mg tablet 40 mg PO BEDTIME #30 tabs 05/27/22 montelukast 10 mg tablet 10 mg PO BEDTIME 30 days #30 tabs 07/15/22 (Singulair) roflumilast 250 mcg tablet 250 mcg PO DAILY 30 days #30 tabs 07/15/22 (Daliresp) amlodipine 10 mg tablet 10 mg PO DAILY #60 tabs 07/18/22 ezetimibe 10 mg tablet 10 mg PO DAILY 90 days #90 tabs 09/16/22 amoxicillin 500 mg capsule 500 mg PO BID #20 caps 10/27/22 Allergies Allergy/AdvReac Type Severity Reaction Status Date / Time loratadine [From CLARITIN] Allergy Mild CHILLS AND Verified 07/27/22 13:05 DIFF BREATHING Review of Systems Review of Systems: Constitutional: No Weight loss, No Fever, No Chills, No Night Sweats, No Fatigue, No Malaise ENT/Mouth: No Hearing loss, No Ear Pain, No Nasal Congestion, No Sinus Pain, No Hoarseness, +sore throat, No Rhinorrhea, No Swallowing Difficulty Eyes: No Eye Pain, No Swelling, No Redness, No Foreign Body, No Discharge, No Vision Changes Cardiovascular: No Chest Pain, No SOB, No Dyspnea on Exertion, No Orthopnea, No Edema, No Palpitations Respiratory: +Cough, + Sputum, No Wheezing, No Smoke Exposure, + Dyspnea Gastrointestinal: No Nausea, No Vomiting, No Diarrhea, No Constipation, No Abdominal pain, No Hematochezia, No Melena Genitourinary: No irregular bleeding, No Dysuria, No Urinary Frequency, No Hematuria, No Urinary Incontinence/retention, No Urgency, No Flank Pain, No Urinary Flow Changes, No Hesitancy Musculoskeletal: No joint pain, No Myalgias, No Joint Swelling Skin: No Skin Lesions, No rash Neuro: No Weakness, No Numbness, No Paresthesias, No Loss of Consciousness, No Dizziness, No Headache Psych: No Anxiety/Panic, No Depression, No SI/HI/AH/VH, No Social Issues, Heme/Lymph: No Bruising, No Bleeding,No Lymphadenopathy Endocrine: No Polyuria, No Polydipsia, No Temperature Intolerance Yes all other systems are reviewed and are negative Constitutional: Constitutional: Reports as per HPI [facility] Past Medical History Medical History Acid reflux Asthma-COPD overlap syndrome Chronic restrictive lung disease Coronary artery disease Epigastric pain Fatty liver Fibromyalgia Gall bladder polyp Hyperlipidemia Hypertension Obesity (BMI 30-39.9) NAM treated with BiPAP Pre-op chest exam Sleep apnea Surgical History History of cardiac cath History of endometrial ablation History of esophagogastroduodenoscopy History of partial hysterectomy Hx of tubal ligation Family History Family History Paternal Grandfather No problems noted. Father History of cancer Lung cancer Mother Heart disease Social History Social History Household Members: Significant Other and Children Housing: Apartment Do you presently have visiting nurse or other home services: No Alcohol intake: never Patient Tobacco Use Status: Former Tobacco user Tobacco use type: Cigarette Years Smoked: 5 years Smoked in Last 30 Days: No Second Hand Smoke Exposure: No Use of substances other than those prescribed or required for medical reasons: No Advance Directives: No Advance Directives Information Provided: Yes Patient : No service: No Current occupational status: disabled Sexual orientation: Straight/Heterosexual Gender identity: Female Physical Exam ED Vital Signs: Vital Signs - 24 hr 10/27/22 06:13 10/27/22 07:50 10/27/22 10:26 Temperature 98 F 98.2 F 98.2 F Pulse Rate 99 85 88 Respiratory Rate 18 16 16 Blood Pressure 158/64 H 159/76 H 152/79 H Pulse Oximetry 97 96 98 Oxygen Delivery Method Room Air Room Air Room Air BMI result Body Mass Index 43.6 Const General: cooperative, comfortable and no acute distress Orientation/consciousness: patient oriented x3 Limitations: no limitations HENMT Other: There is mild erythema to the posterior pharynx, uvula is midline. no tonsillar hypertrophy or exudate. Airway patent. Head: Yes normal to inspection, Yes normocephalic and Yes atraumatic Ears: hearing grossly normal bilaterally General nose exam: Normal external nose present Face and sinus: Yes normal facial exam Mouth: Normal oral and palatal mucosa present and moist mucous membranes Throat: Yes posterior oropharynx normal Eyes General: appearance normal, both eyes and all related structures Eyelids: Yes eyelids normal Conjunctivae: conjunctivae normal Sclerae: sclerae normal Pupils: Equal, round and reactive pupils present EOM: EOMs intact bilaterally Neck Other: Prominent swelling under chin into neck with mild tenderness to palpation. No erythema, warmth or crepitus. Lymphatic: no lymphadenopathy noted Chest Chest palpation & inspection: normal inspection of the chest Resp Effort & Inspection: normal respiratory effort and able to speak in complete sentences Auscultation: clear to auscultation bilaterally, no crackles, no rales, no rhonchi and no wheezes Cardio Rate: regular rate Rhythm: regular rhythm Heart sounds: S1 normal heart sound present and S2 normal heart sound present Bruits: no carotid bruits GI Inspection: Yes normal to inspection Skin General skin exam: no rashes or lesions noted Trauma: no lacerations or abrasions Wounds: no wounds Neuro General: patient oriented x3 and moves all extremities Cranial nerves: Yes Equal, round and reactive pupils present Extrem General: Yes normal to inspection Right upper extremity: normal to inspection Left upper extremity: normal to inspection Right lower extremity: normal to inspection Left lower extremity: normal to inspection Course Reevaluation(s) Reevaluation #1: Review of medical records from ENT reveal normal fiberoptic laryngoscopy. Recommended GI follow-up. Soft tissue neck CT revealing enlarged reactive appearing left level IIa lymph node there is patient strep positive, all other lab work is unremarkable. Will treat as strep, but also urged the importance to follow up with GI. Discussed at length the importance of completing full course of antibiotics and given red flag warning signs of when to return. Patient understands and agrees with plan. Patient stable for discharge. Medications Administered Discontinued Medications Generic Name Dose Route Start Last Admin Trade Name Martin PRN Reason Stop Dose Admin Iohexol 100 ml 10/27/22 10:05 10/27/22 10:06 Iohexol 350 Mg/Ml 100 Ml Infus..Btl IV 10/27/22 10:06 65 ml ONCE ONE Administration Medical Decision Making Medical Decision Making [facility] Narrative: This is a 51-year-old female, with a past medical history of hypertension, asthma, ovarian cysts, CAD, NAM, fatty liver, who presents emergency department today with complaints of ongoing neck swelling x4 months. Upon arrival, patient's blood pressure 158/64, all other VSS WNL. Patient has ?swelling to neck, however no obvious erythema, edema, increased warmth. She is nontoxic-appearing, handling secretions well, no trismus, drooling, or dysphonia. Patient was seen on 08/12/2022 operative for the symptoms were she had a soft tissue CT revealing a retropharyngeal cellulitis the level of C2 through C3 4. Patient was then transferred to [facility]. I will try to obtain records from [facility] and ENT surgeons. Plan: Labs, EKG, lactic, blood cultures, ESR/CRP, thyroid panel, strep swab, soft tissue neck CT. Obtain records Differential Diagnosis Differential Diagnoses: The differential diagnosis associated with the presentation includes Retropharyngeal abscess, strep pharyngitis, mass, tonsillitis Admission/Observation Consideration of admission/observation: Escalation of care including admission/observation considered Lab Data [facility] Lab Attestation statement: I reviewed the patient's lab results. 10/27/22 08:49 10/27/22 08:49 Labs: Lab Results 10/27/22 10/27/22 10/27/22 Range/Units 08:49 08:49 08:49 WBC 6.5 (4.8-10.8) X10*3/uL RBC 4.40 (4.20-5.50) X10*6/uL Hgb 13.4 (12.0-16.0) g/dl Hct 40.2 (37.0-47.0) % MCV 91.4 (80.0-98.0) fL MCH 30.5 (27.0-33.0) pg MCHC 33.3 (31.0-35.0) g/dl RDW 13.0 (11.0-16.0) % Plt Count 254 (160-400) X10*3/uL MPV 10.8 (9.4-12.3) fL Immature Gran % (Auto) 0.2 (0.0-0.4) % Neut % (Auto) 43.6 L (45-73) % Lymph % (Auto) 45.2 H (20-40) % Collier % (Auto) 10.1 (2-11) % Eos % (Auto) 0.6 (0-4) % Baso % (Auto) 0.3 (0-2) % Lymph # (Auto) 2.9 (1.2-4.9) X10*3/uL Collier # (Auto) 0.7 (0.1-1.2) X10*3/uL Eos # (Auto) 0.0 (0.0-0.4) X10*3/uL Baso # (Auto) 0.0 (0.0-0.2) X10*3/uL Abs Immat Gran (auto) 0.01 (0.00-0.03) X10*3/uL Absolute Neuts (auto) 2.8 (2.0-8.3) x10*3/uL Absolute Nucleated RBC 0.000 (0.0-0.012) X10*3/uL Nucleated RBC % (auto) 0.0 (0.0-0.2) /100WBC ESR (0-20) MM/HR Sodium 140 (135-145) mmol/L Potassium 4.3 (3.3-5.1) mmol/L Chloride 105 (96-108) mmol/L Carbon Dioxide 28 (22-29) mmol/L Anion Gap 11 L (12-20) BUN 14 (9-16) mg/dL Creatinine 0.87 (0.5-1.4) mg/dL Estim Creat Clear Calc 103.3 Estimated GFR > 60 Random Glucose 111 (60-115) mg/dL Lactic Acid 1.0 (0.5-2.0) mmol/L Calcium 10.0 (8.4-10.2) mg/dL Magnesium 2.3 (1.6-2.6) mg/dL Total Bilirubin 0.3 (0.0-1.0) mg/dL Direct Bilirubin 0.1 (0.0-0.5) mg/dL AST 26 (5-31) U/L ALT 37 H (0-31) U/L Alkaline Phosphatase 93 (39-117) U/L C-Reactive Protein (< or = 0.50) mg/dL B-Natriuretic Peptide (<100) pg/mL Total Protein 7.4 (6.5-8.0) g/dL Albumin 4.6 (3.5-5.0) g/dL Lipase 28 (8-78) U/L TSH 3.27 (0.32-4.0) uIU/mL Thyroxine (T4) 8.6 (4.5-12.0) ug/dL S. pyogenes GrpA MIRIAM (Negative) 10/27/22 10/27/22 10/27/22 Range/Units 08:50 08:50 08:50 WBC (4.8-10.8) X10*3/uL RBC (4.20-5.50) X10*6/uL Hgb (12.0-16.0) g/dl Hct (37.0-47.0) % MCV (80.0-98.0) fL MCH (27.0-33.0) pg MCHC (31.0-35.0) g/dl RDW (11.0-16.0) % Plt Count (160-400) X10*3/uL MPV (9.4-12.3) fL Immature Gran % (Auto) (0.0-0.4) % Neut % (Auto) (45-73) % Lymph % (Auto) (20-40) % Collier % (Auto) (2-11) % Eos % (Auto) (0-4) % Baso % (Auto) (0-2) % Lymph # (Auto) (1.2-4.9) X10*3/uL Collier # (Auto) (0.1-1.2) X10*3/uL Eos # (Auto) (0.0-0.4) X10*3/uL Baso # (Auto) (0.0-0.2) X10*3/uL Abs Immat Gran (auto) (0.00-0.03) X10*3/uL Absolute Neuts (auto) (2.0-8.3) x10*3/uL Absolute Nucleated RBC (0.0-0.012) X10*3/uL Nucleated RBC % (auto) (0.0-0.2) /100WBC ESR 13 (0-20) MM/HR Sodium (135-145) mmol/L Potassium (3.3-5.1) mmol/L Chloride (96-108) mmol/L Carbon Dioxide (22-29) mmol/L Anion Gap (12-20) BUN (9-16) mg/dL Creatinine (0.5-1.4) mg/dL Estim Creat Clear Calc Estimated GFR Random Glucose (60-115) mg/dL Lactic Acid (0.5-2.0) mmol/L Calcium (8.4-10.2) mg/dL Magnesium (1.6-2.6) mg/dL Total Bilirubin (0.0-1.0) mg/dL Direct Bilirubin (0.0-0.5) mg/dL AST (5-31) U/L ALT (0-31) U/L Alkaline Phosphatase (39-117) U/L C-Reactive Protein 0.65 H (< or = 0.50) mg/dL B-Natriuretic Peptide < 10 (<100) pg/mL Total Protein (6.5-8.0) g/dL Albumin (3.5-5.0) g/dL Lipase (8-78) U/L TSH (0.32-4.0) uIU/mL Thyroxine (T4) (4.5-12.0) ug/dL S. pyogenes GrpA MIRIAM (Negative) 10/27/22 Range/Units 09:26 WBC (4.8-10.8) X10*3/uL RBC (4.20-5.50) X10*6/uL Hgb (12.0-16.0) g/dl Hct (37.0-47.0) % MCV (80.0-98.0) fL MCH (27.0-33.0) pg MCHC (31.0-35.0) g/dl RDW (11.0-16.0) % Plt Count (160-400) X10*3/uL MPV (9.4-12.3) fL Immature Gran % (Auto) (0.0-0.4) % Neut % (Auto) (45-73) % Lymph % (Auto) (20-40) % Collier % (Auto) (2-11) % Eos % (Auto) (0-4) % Baso % (Auto) (0-2) % Lymph # (Auto) (1.2-4.9) X10*3/uL Collier # (Auto) (0.1-1.2) X10*3/uL Eos # (Auto) (0.0-0.4) X10*3/uL Baso # (Auto) (0.0-0.2) X10*3/uL Abs Immat Gran (auto) (0.00-0.03) X10*3/uL Absolute Neuts (auto) (2.0-8.3) x10*3/uL Absolute Nucleated RBC (0.0-0.012) X10*3/uL Nucleated RBC % (auto) (0.0-0.2) /100WBC ESR (0-20) MM/HR Sodium (135-145) mmol/L Potassium (3.3-5.1) mmol/L Chloride (96-108) mmol/L Carbon Dioxide (22-29) mmol/L Anion Gap (12-20) BUN (9-16) mg/dL Creatinine (0.5-1.4) mg/dL Estim Creat Clear Calc Estimated GFR Random Glucose (60-115) mg/dL Lactic Acid (0.5-2.0) mmol/L Calcium (8.4-10.2) mg/dL Magnesium (1.6-2.6) mg/dL Total Bilirubin (0.0-1.0) mg/dL Direct Bilirubin (0.0-0.5) mg/dL AST (5-31) U/L ALT (0-31) U/L Alkaline Phosphatase (39-117) U/L C-Reactive Protein (< or = 0.50) mg/dL B-Natriuretic Peptide (<100) pg/mL Total Protein (6.5-8.0) g/dL Albumin (3.5-5.0) g/dL Lipase (8-78) U/L TSH (0.32-4.0) uIU/mL Thyroxine (T4) (4.5-12.0) ug/dL S. pyogenes GrpA MIRIAM Positive A (Negative) Radiology Impression Discussion of test interpretation with radiology: I have reviewed the radiologist's reading. Radiologist Impression: EXAMINATION: CT SOFT TISSUE NECK WITH CONTRAST CLINICAL INFORMATION: Neck swelling.? COMPARISON: None? TECHNIQUE: Following the administration of 65 mL of Omnipaque 300? intravenous contrast, helical imaging was performed in the axial plane with generation of coronal and sagittal reformatted images. This CT examination was performed using dose optimization techniques as appropriate, variously including the following: *Automated exposure control *Adjustment of mA and/or kV according to patient size (this includes techniques or standardized protocols for targeted exams where dose is matched to indication/reason for exam; i.e. extremities or head) *Use of iterative reconstruction technique DLP: 869 mGy-cm FINDINGS: The nasopharynx appears normal. There is no retropharyngeal adenopathy. No retropharyngeal fluid collection is seen. The palatine tonsils are prominent. No peritonsillar collection is seen. The base of tongue appears normal. There is no laryngeal lesion. The parotid and submandibular glands appear normal. There is an enlarged (but morphologically normal) left level IIa lymph node measuring 2.1 cm. No additional enlarged lymph nodes are seen. The thyroid gland is unremarkable. No enlarged upper mediastinal lymph nodes are seen. There is no consolidation within the upper lungs. Major neck vessels are patent. There is no acute intracranial abnormality. The spine is intact with mild degenerative changes noted. CT/CT soft tissue neck w IV con IMPRESSION:? No neck mass or inflammatory changes identified. Enlarged reactive appearing left level IIa lymph node which could be clinically followed. Dictated By: ROSHAN FATIMA MD Signed By: <Electronically signed by ROSHAN FATIMA MD in OV> 10/27/22 1124 DD/ 1000 External Record Review External record reviewed: Inpatient record, Office record, Outpatient record, Prior outpatient labs, Prior outpatient radiology, Primary care record and Outside ED record Prescription Management I considered prescription management with: Antibiotic Discharge Plan Discharge Clinical Impression: Acute streptococcal pharyngitis Patient Disposition: Home, Self-Care Instructions: Strep Throat (ED) Additional Instructions: You tested positive for strep throat today. Please take prescribed antibiotics as directed. Finish the entire course of antibiotics even if you are feeling better. Drink plenty of fluids and get plenty of rest. Throw away your toothbrush. Please follow-up with your outpatient physical therapist as they may want to do a further workup. This was also recommended by ENT. Please return with any new or worsening symptoms. Hoy diste positivo por faringitis estreptoc?cica. [place] los antibi?ticos recetados seg?n las indicaciones. Termine todo el ciclo de antibi?ticos incluso si se siente mejor. Prudence muchos l?quidos y descanse lo suficiente. [place] tu cepillo de dientes. Saeid un seguimiento con penn gastroenter?logo, ya que es posible que deseen realizar un estudio adicional. [place] tambi?n fue recomendado por ENT. Regrese con cualquier s?ntoma nuevo o que empeore. Prescriptions: New amoxicillin 500 mg capsule 500 mg PO BID Qty: 20 0RF No Action cholecalciferol (vitamin D3) 50 mcg (2,000 unit) tablet 50 mcg PO DAILY Qty: 30 6RF sennosides [Natural Senna Laxative] 8.6 mg tablet 8.6 mg PO BEDTIME Qty: 30 3RF Repatha SureClick 140 mg/mL pen injector 140 mg subcut Q2W 90 Days Qty: 7 3RF rosuvastatin 40 mg tablet 40 mg PO DAILY Qty: 90 3RF fenofibrate 54 mg tablet 54 mg PO DAILY Qty: 90 3RF famotidine 40 mg tablet 40 mg PO BEDTIME Qty: 30 3RF amlodipine 10 mg tablet 10 mg PO DAILY Qty: 60 3RF ezetimibe 10 mg tablet 10 mg PO DAILY 90 Days Qty: 90 3RF sumatriptan succinate 50 mg tablet 50 mg PO Q2-4H PRN (Reason: migraine headache) Qty: 10 0RF Rx Instructions: do not exceed 4 doses per 24 hrs tramadol 50 mg Tablet 50 mg PO BID PRN (Reason: Pain) albuterol sulfate 90 mcg/actuation HFA aerosol inhaler 1 inh inhalation QID PRN (Reason: shortness of breath or wheezing) Qty: 8.5 0RF Mucinex 1,200 mg tablet extended release 12hr 1,200 mg PO BID Qty: 14 0RF albuterol sulfate 2.5 mg /3 mL (0.083 %) solution for nebulization 1 amp inhalation Q4H PRN (Reason: Wheezing) gabapentin 400 mg capsule 400 cap PO BID naloxone 4 mg/actuation spray,non-aerosol intranasal Tab-A-Colton Multivitamin w-iron 15 mg iron- 400 mcg tablet 1 tab PO DAILY ketorolac 10 mg tablet 10 mg PO BID PRN (Reason: pain) Qty: 7 0RF Rx Instructions: Do not use these medications with Aleve, NSAIDs, only use Tylenol or tramadol for breakthrough pain lorazepam [Ativan] 2 mg tablet 2 mg PO BEDTIME PRN (Reason: Anxiety) zolpidem [Ambien] 10 mg tablet 5 mg PO BEDTIME PRN (Reason: Anxiety) methocarbamol 500 mg tablet 500 mg PO QID PRN (Reason: Muscle Spasm) pantoprazole [Protonix] 40 mg tablet,delayed release (DR/EC) 40 mg PO DAILY docusate sodium [Colace] 100 mg capsule 100 mg PO DAILY PRN (Reason: Constipation) (DME) CPAP Machine/Device Device See Rx Instructions .ROUTE .MEDSUPPLY Qty: 1 Rx Instructions: As directed duloxetine 60 mg capsule,delayed release(DR/EC) 60 mg PO DAILY fluticasone propionate 50 mcg/actuation spray,suspension 2 spray intranasal DAILY lisinopril 5 mg tablet 5 mg PO DAILY cetirizine 10 mg tablet 10 mg PO DAILY polyethylene glycol 3350 [Miralax] 17 gram powder in packet 17 g PO DAILY Qty: 30 5RF roflumilast [Daliresp] 250 mcg tablet 250 mcg PO DAILY 30 Days Qty: 30 11RF montelukast [Singulair] 10 mg tablet 10 mg PO BEDTIME 30 Days Qty: 30 11RF Anoro Ellipta 62.5-25 mcg/actuation blister with device 1 inh inhalation DAILY Qty: 60 11RF Trelegy Ellipta 200-62.5-25 mcg blister with device 1 inh inhalation DAILY 30 Days Qty: 60 12RF ibuprofen 600 mg tablet 600 mg PO Q8H PRN (Reason: pain) 14 Days Qty: 30 0RF Interventions: ED Discharge Assessment Last Done: 10/27/22 12:15 Discharge Date/Time: 10/27/22 12:17
--- NOTE | 2022-10-27 08:51 | ECG_ITS ---
Test Reason : SOB Blood Pressure : / mmHG Vent. Rate : 070 BPM Atrial Rate : 070 BPM P-R Int : 134 ms QRS Dur : 076 ms QT Int : 404 ms P-R-T Axes : 035 -04 109 degrees QTc Int : 436 ms Normal sinus rhythm T wave abnormality, consider lateral ischemia Abnormal ECG When compared with ECG of 25-DEC-2021 01:16, No significant change was found Referred By: Anushka Dozier Electronically Signed By:SHELLY ROSA MD
--- NOTE | 2022-10-27 08:53 | MHC.EDTECH ---
Labs and cultures collected and sent
[2022-10-27 08:54] LABS: MANUAL DIFF FLAG NO
[2022-10-27 08:57] LABS: Basophils Percent Auto 0.3 % (0-2); Eosinophils Percent Auto 0.6 % (0-4); Hematocrit 40.2 % (37.0-47.0); Hemoglobin 13.4 g/dl (12.0-16.0); Imm Gran Abs Auto 0.01 X10*3/uL (0.00-0.03); Imm Gran Pct Auto 0.2 % (0.0-0.4); Lymphocytes Absolute Auto 2.9 X10*3/uL (1.2-4.9); Lymphocytes Percent Auto 45.2 % (20-40); Mean Corpuscular HGB Conc 33.3 g/dl (31.0-35.0); Mean Corpuscular Hemoglobin 30.5 pg (27.0-33.0); Mean Corpuscular Volume 91.4 fL (80.0-98.0); Mean Platelet Volume 10.8 fL (9.4-12.3); Monocytes Absolute Auto 0.7 X10*3/uL (0.1-1.2); Monocytes Percent Auto 10.1 % (2-11); Neutrophils Absolute Auto 2.8 x10*3/uL (2.0-8.3); Neutrophils Percent Auto 43.6 % (45-73); Platelet Count 254 X10*3/uL (160-400); White Blood Count 6.5 X10*3/uL (4.8-10.8)
--- NOTE | 2022-10-27 09:00 | MHC.EDTECH ---
EKG completed and signed by
[2022-10-27 09:14] LABS: C Reactive Protein 0.65 mg/dL (< or = 0.50)
[2022-10-27 09:21] LABS: B Type Natriuretic Peptide < 10 pg/mL (<100)
[2022-10-27 09:24] LABS: Alanine Aminotransferase 37 U/L (0-31); Albumin Level 4.6 g/dL (3.5-5.0); Alkaline Phosphatase 93 U/L (39-117); Anion Gap 11 (12-20); Aspartate Amino Transferase 26 U/L (5-31); Bilirubin Direct 0.1 mg/dL (0.0-0.5); Bilirubin Total 0.3 mg/dL (0.0-1.0); Blood Urea Nitrogen 14 mg/dL (9-16); Carbon Dioxide 28 mmol/L (22-29); Chloride 105 mmol/L (96-108); Creatinine Clr Calc Pharmacy 103.3; Estimated Glomerular Filt Rate > 60; Glucose Random 111 mg/dL (60-115); Lipase 28 U/L (8-78); Magnesium 2.3 mg/dL (1.6-2.6); Potassium 4.3 mmol/L (3.3-5.1); Sodium 140 mmol/L (135-145); Total Protein 7.4 g/dL (6.5-8.0)
[2022-10-27 09:35] LABS: IDNOW Serial# 08D9AD1C; Strep A Nucleic Acid Positive (Negative)
[2022-10-27 09:38] LABS: T4 Thyroxine 8.6 ug/dL (4.5-12.0); Thyroid Stimulating Hormone 3.27 uIU/mL (0.32-4.0)
[2022-10-27 09:47] LABS: Erythrocyte Sedimentation Rate 13 MM/HR (0-20)
[2022-10-27] MEDS: iohexoL 350 MG/ML 100 ML INFUS..BTL IV (10:06)
[2022-10-27 10:26] VITALS: BP 152/79; PULSE 88; RESP 16; TEMP 36.8; O2SAT 98
[2022-11-09 23:24] LABS: Parathyroid Hormone Related Pr 12 pg/mL (11-20)
== END 2022-10-27 12:17 | disposition home or self-care (01) ==
PROVIDERS: Physician Assistant Medical; Emergency Provider Emergency Medicine
DX: J02.0 Streptococcal pharyngitis (principal); I10 Essential (primary) hypertension; R06.02 Shortness of breath; Z79.899 Other long term (current) drug therapy; Z79.02 Long term (current) use of antithrombotics/antiplatelets
CPT/HCPCS: 36415; 70491; 71046; 80048; 80076; 83519; 83605; 83690; 83735; 83880; 84436; 84443; 85025; 85652; 86140; 87040; 87147; 87205; 87651; 93005; 99283; 99284; Q9967

== ENCOUNTER 2022-10-28 12:48 | Emergency (ER) | payer MEDICAID, SELFPAY ==
[2022-10-28 12:54] VITALS: BP 169/83; PULSE 108; RESP 17; TEMP 36.3; O2SAT 95; BMI 44.2
--- NOTE | 2022-10-28 12:54 | ED_ITS ---
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 She had no leukocytosis yesterday and was discharged on oral abx for Strep. She is feeling better. No fever or chills at home. No N/V/D or abdominal pain. MD complaint: +blood culture Onset (ago): minute(s) Associated symptoms: denies other symptoms Treatments prior to arrival: none Related Data Home Medications Medication Instructions Recorded Confirmed docusate sodium 100 mg capsule 100 mg PO DAILY PRN Constipation 03/26/20 07/13/22 (Colace) lorazepam 2 mg tablet (Ativan) 2 mg PO BEDTIME PRN Anxiety 03/26/20 07/13/22 methocarbamol 500 mg tablet 500 mg PO QID PRN Muscle Spasm 03/26/20 07/13/22 pantoprazole 40 mg tablet,delayed 40 mg PO DAILY 03/26/20 07/13/22 release (Protonix) zolpidem 10 mg tablet (Ambien) 5 mg PO BEDTIME PRN Anxiety 03/26/20 07/13/22 tramadol 50 mg tablet 50 mg PO BID PRN Pain 05/20/20 07/13/22 CPAP (CPAP Machine/Device) #1 ea 12/24/20 07/13/22 cetirizine 10 mg tablet 10 mg PO DAILY 07/19/21 07/13/22 duloxetine 60 mg capsule,delayed 60 mg PO DAILY 07/19/21 07/13/22 release fluticasone propionate 50 2 spray intranasal DAILY 07/19/21 07/13/22 mcg/actuation nasal spray,suspension lisinopril 5 mg tablet 5 mg PO DAILY 07/19/21 07/13/22 albuterol sulfate 2.5 mg/3 mL 1 amp inhalation Q4H PRN Wheezing 01/17/22 07/13/22 (0.083 %) solution for nebulization gabapentin 400 mg capsule 400 cap PO BID 01/17/22 07/13/22 multivitamin-iron sulfate 15 1 tab PO DAILY 01/17/22 07/13/22 mg-folic acid 400 mcg tablet (Tab-A-Colton Multivitamin w-iron) naloxone 4 mg/actuation nasal spray spray intranasal 01/17/22 07/13/22 Previous Rx's Medication Instructions Recorded sumatriptan succinate 50 mg tablet 50 mg PO Q2-4H PRN migraine 11/05/20 headache #10 tabs albuterol sulfate 90 mcg/actuation 1 inh inhalation QID PRN shortness 12/28/20 aerosol inhaler of breath or wheezing #8.5 grams polyethylene glycol 3350 17 gram 17 g PO DAILY #30 ea 07/19/21 oral powder packet (Miralax) cholecalciferol (vitamin D3) 50 50 mcg PO DAILY #30 tabs 07/26/21 mcg (2,000 unit) tablet sennosides 8.6 mg tablet (Natural 8.6 mg PO BEDTIME constipation #30 11/17/21 Senna Laxative) tabs fluticasone fur. 200 mcg-umeclid 1 inh inhalation DAILY 30 days #60 11/19/21 62.5 mcg-vilant 25 mcg ea inhalat.powder (Trelegy Ellipta) umeclidinium 62.5 mcg-vilanterol 1 inh inhalation DAILY #60 ea 11/19/21 25 mcg/actuation powdr for inhalation (Anoro Ellipta) guaifenesin 1,200 mg tablet, 1,200 mg PO BID #14 tabs 12/13/21 extended release 12 hr (Mucinex) evolocumab 140 mg/mL subcutaneous 140 mg subcut Q2W 90 days #7 mL 12/31/21 pen injector (Dominic Sunshine) ketorolac 10 mg tablet 10 mg PO BID PRN pain #7 tabs 01/08/22 ibuprofen 600 mg tablet 600 mg PO Q8H PRN pain 14 days #30 01/17/22 tabs fenofibrate 54 mg tablet 54 mg PO DAILY #90 tabs 05/23/22 rosuvastatin 40 mg tablet 40 mg PO DAILY #90 tabs 05/23/22 famotidine 40 mg tablet 40 mg PO BEDTIME #30 tabs 05/27/22 montelukast 10 mg tablet 10 mg PO BEDTIME 30 days #30 tabs 07/15/22 (Singulair) roflumilast 250 mcg tablet 250 mcg PO DAILY 30 days #30 tabs 07/15/22 (Daliresp) amlodipine 10 mg tablet 10 mg PO DAILY #60 tabs 07/18/22 ezetimibe 10 mg tablet 10 mg PO DAILY 90 days #90 tabs 09/16/22 amoxicillin 500 mg capsule 500 mg PO BID #20 caps 10/27/22 Allergies Allergy/AdvReac Type Severity Reaction Status Date / Time loratadine [From CLARITIN] Allergy Mild CHILLS AND Verified 07/27/22 13:05 DIFF BREATHING Review of Systems Review of Systems: Yes all other systems are reviewed and are negative [facility] Past Medical History Medical History Acid reflux Asthma-COPD overlap syndrome Chronic restrictive lung disease Coronary artery disease Epigastric pain Fatty liver Fibromyalgia Gall bladder polyp Hyperlipidemia Hypertension Obesity (BMI 30-39.9) NAM treated with BiPAP Pre-op chest exam Sleep apnea Surgical History History of cardiac cath History of endometrial ablation History of esophagogastroduodenoscopy History of partial hysterectomy Hx of tubal ligation Family History Family History Paternal Grandfather No problems noted. Father History of cancer Lung cancer Mother Heart disease Social History Social History Household Members: Significant Other and Children Housing: Apartment Do you presently have visiting nurse or other home services: No Alcohol intake: never Patient Tobacco Use Status: Former Tobacco user Tobacco use type: Cigarette Years Smoked: 5 years Second Hand Smoke Exposure: No Advance Directives: No Advance Directives Information Provided: Yes service: No Current occupational status: disabled Sexual orientation: Straight/Heterosexual Gender identity: Female Physical Exam ED Vital Signs: Vital Signs - 24 hr 10/28/22 12:54 Temperature 97.3 F Pulse Rate 108 H Respiratory Rate 17 Blood Pressure 169/83 H Pulse Oximetry 95 Oxygen Delivery Method Room Air BMI result Body Mass Index 44.2 Appearance: Alert. Oriented X3. No acute distress. HEENT: normal external inspection CVS: normal inspection of the chest wall, equal rise and fall. Respiratory: No respiratory distress. Speaking in complete sentences Skin: Skin warm and dry. Normal skin color. Normal skin turgor. No rashes. Extremities: normal inspection x4 Neuro: Oriented X 3.Grossly normal, nonfocal, steady gait Course Course Course Narrative: RME - 51-year-old Mosotho-speaking female, with a past medical history of hypertension, asthma, ovarian cysts, CAD, NAM, fatty liver, who was just diagnosed with Strep throat yesterday presents to the ER for evaluation of 1 of 2 + blood cultures growing gram positive cocci in clusters. She was d/c on abx for Strep and is feeling better. Labs from yesterday reviewed - no leukocytosis or significant elevation in inflammatory markers. most likely skin contaminant. Will repeat blood work and cultures then d/c home. Medical Decision Making Medical Decision Making [facility] Narrative: 51 Year old female presents to the ER for evaluation a positive blood culture that was drawn yesterday. It was 1/2 cultures are growing Gram-positive cocci in clusters. She was found to have strep throat which is a Gram-positive bacteria in chains. Doubt this is a true positive. She is afebrile and feeling better with oral antibiotics. Will plan to send repeat cultures and lab work today and call her if there are any further positive results or concerning growth on cultures. browning processor used to explain likelihood of false po sitive and all questions were answered. Differential Diagnosis Differential Diagnoses: The differential diagnosis associated with the prese ntation includes false positive, skin contaminant, staph bacteremia, MRSA bacteremia Admission/Observation Consideration of admission/observation: Escalation of care including admission/observation considered Doubt true infection so observation/admission was held off given her reassuring labs from yesterday and improvement in symptoms the oral antibiotics Lab Data [facility] Lab Attestation statement: I reviewed the patient's lab results. 10/28/22 13:15 10/28/22 13:15 External Record Review External record reviewed: Outpatient record Prescription Management I considered prescription management with: Antibiotic Critical Care Time Critical Care Time Critical Care Time: No Discharge Plan Discharge Clinical Impression: Positive blood culture Patient Disposition: Home, Self-Care Instructions: Strep Throat (DC) Additional Instructions: ONE of TWO blood cultures from yesterday is growing a bacteria, most likely a bacteria from your skin and most likely is NOT a true infection Continue your previously prescribed oral antibiotics, complete the entire course and do not miss any doses Use warm salt water gargles 3 times per day to help with sore throat Take motrin and tylenol as needed for pain and fevers Follow up with your doctor as needed IF you have any further abnormalities in your lab work that are of concern, we will call you right away TONYA de DOS hemocultivos de ole est? creciendo jaylan bacteria, lo m?s probable es que sea jaylan bacteria de penn piel y lo m?s probable es que NO sea jaylan infecci?n real Contin?e con los antibi?ticos orales prescritos anteriormente, complete todo el ciclo y no omita ninguna dosis. Use agua tibia con blaze para hacer g?rgaras 3 veces al d?a para ayudar con el dolor de garganta [place] motrin y tylenol seg?n sea necesario para el dolor y la fiebre. Seguimiento con penn m?dico seg?n sea necesario SI tiene m?s anomal?as en penn trabajo de laboratorio que son motivo de preocupaci?n, lo llamaremos de inmediato. Prescriptions: No Action cholecalciferol (vitamin D3) 50 mcg (2,000 unit) tablet 50 mcg PO DAILY Qty: 30 6RF sennosides [Natural Senna Laxative] 8.6 mg tablet 8.6 mg PO BEDTIME Qty: 30 3RF Repatha SureClick 140 mg/mL pen injector 140 mg subcut Q2W 90 Days Qty: 7 3RF rosuvastatin 40 mg tablet 40 mg PO DAILY Qty: 90 3RF fenofibrate 54 mg tablet 54 mg PO DAILY Qty: 90 3RF famotidine 40 mg tablet 40 mg PO BEDTIME Qty: 30 3RF amlodipine 10 mg tablet 10 mg PO DAILY Qty: 60 3RF ezetimibe 10 mg tablet 10 mg PO DAILY 90 Days Qty: 90 3RF sumatriptan succinate 50 mg tablet 50 mg PO Q2-4H PRN (Reason: migraine headache) Qty: 10 0RF Rx Instructions: do not exceed 4 doses per 24 hrs tramadol 50 mg Tablet 50 mg PO BID PRN (Reason: Pain) albuterol sulfate 90 mcg/actuation HFA aerosol inhaler 1 inh inhalation QID PRN (Reason: shortness of breath or wheezing) Qty: 8.5 0RF Mucinex 1,200 mg tablet extended release 12hr 1,200 mg PO BID Qty: 14 0RF albuterol sulfate 2.5 mg /3 mL (0.083 %) solution for nebulization 1 amp inhalation Q4H PRN (Reason: Wheezing) gabapentin 400 mg capsule 400 cap PO BID naloxone 4 mg/actuation spray,non-aerosol intranasal Tab-A-Colton Multivitamin w-iron 15 mg iron- 400 mcg tablet 1 tab PO DAILY ketorolac 10 mg tablet 10 mg PO BID PRN (Reason: pain) Qty: 7 0RF Rx Instructions: Do not use these medications with Aleve, NSAIDs, only use Tylenol or tramadol for breakthrough pain amoxicillin 500 mg capsule 500 mg PO BID Qty: 20 0RF lorazepam [Ativan] 2 mg tablet 2 mg PO BEDTIME PRN (Reason: Anxiety) zolpidem [Ambien] 10 mg tablet 5 mg PO BEDTIME PRN (Reason: Anxiety) methocarbamol 500 mg tablet 500 mg PO QID PRN (Reason: Muscle Spasm) pantoprazole [Protonix] 40 mg tablet,delayed release (DR/EC) 40 mg PO DAILY docusate sodium [Colace] 100 mg capsule 100 mg PO DAILY PRN (Reason: Constipation) (DME) CPAP Machine/Device Device See Rx Instructions .ROUTE .MEDSUPPLY Qty: 1 Rx Instructions: As directed duloxetine 60 mg capsule,delayed release(DR/EC) 60 mg PO DAILY fluticasone propionate 50 mcg/actuation spray,suspension 2 spray intranasal DAILY lisinopril 5 mg tablet 5 mg PO DAILY cetirizine 10 mg tablet 10 mg PO DAILY polyethylene glycol 3350 [Miralax] 17 gram powder in packet 17 g PO DAILY Qty: 30 5RF roflumilast [Daliresp] 250 mcg tablet 250 mcg PO DAILY 30 Days Qty: 30 11RF montelukast [Singulair] 10 mg tablet 10 mg PO BEDTIME 30 Days Qty: 30 11RF Anoro Ellipta 62.5-25 mcg/actuation blister with device 1 inh inhalation DAILY Qty: 60 11RF Trelegy Ellipta 200-62.5-25 mcg blister with device 1 inh inhalation DAILY 30 Days Qty: 60 12RF ibuprofen 600 mg tablet 600 mg PO Q8H PRN (Reason: pain) 14 Days Qty: 30 0RF Referrals: Ava Yap DO [Primary Care Provider] -
[2022-10-28 13:24] LABS: Basophils Percent Auto 0.3 % (0-2); Eosinophils Absolute Auto 0.1 X10*3/uL (0.0-0.4); Eosinophils Percent Auto 0.9 % (0-4); Imm Gran Abs Auto 0.02 X10*3/uL (0.00-0.03); Imm Gran Pct Auto 0.3 % (0.0-0.4); Lymphocytes Absolute Auto 2.8 X10*3/uL (1.2-4.9); MANUAL DIFF FLAG SCAN; Mean Corpuscular HGB Conc 33.3 g/dl (31.0-35.0); Mean Corpuscular Hemoglobin 30.1 pg (27.0-33.0); Mean Corpuscular Volume 90.3 fL (80.0-98.0); Mean Platelet Volume 10.7 fL (9.4-12.3); Monocytes Absolute Auto 0.5 X10*3/uL (0.1-1.2); Monocytes Percent Auto 7.6 % (2-11); Neutrophils Percent Auto 46.9 % (45-73); PLT CLUMP 1; Red Blood Count 4.65 X10*6/uL (4.20-5.50); Red Cell Distribution Width 12.9 % (11.0-16.0); SCAN SMEAR FLAG 1
[2022-10-28 13:25] LABS: White Blood Count 6.5 X10*3/uL (4.8-10.8)
[2022-10-28 13:33] LABS: Lactic Acid 1.3 mmol/L (0.5-2.0)
[2022-10-28 13:39] LABS: Anion Gap 14 (12-20); Blood Urea Nitrogen 17 mg/dL (9-16); Calcium 9.7 mg/dL (8.4-10.2); Carbon Dioxide 24 mmol/L (22-29); Chloride 106 mmol/L (96-108); Creatinine Clr Calc Pharmacy 91.9; Estimated Glomerular Filt Rate > 60; Glucose Random 106 mg/dL (60-115); Sodium 140 mmol/L (135-145)
[2022-10-28 13:43] LABS: Platelet Count 239 X10*3/uL (160-400); SLIDE REVIEW VERIFIED
== END 2022-10-28 13:27 | disposition home or self-care (01) ==
PROVIDERS: Physician Assistant; Emergency Provider Emergency Medicine; PCP Family Medicine
DX: R78.81 Bacteremia (principal); Z79.899 Other long term (current) drug therapy; Z87.891 Personal history of nicotine dependence
CPT/HCPCS: 36415; 80048; 83605; 85025; 87040; 99282; 99283

== ENCOUNTER → 2022-11-22 08:23 | Outpatient (BNVA) | payer MEDICAID, SELFPAY | PROVIDERS: PCP Family Medicine; Visit Provider Nurse Practitioner Family | DX: M79.7 Fibromyalgia (principal); Z79.891 Long term (current) use of opiate analgesic; Z79.899 Other long term (current) drug therapy | CPT/HCPCS: 99212 ==

== ENCOUNTER 2022-12-13 08:07 | Outpatient (REF) | payer MEDICAID, SELFPAY ==
--- NOTE | ~2022-12-13 | US_ITS ---
EXAMINATION: US ABDOMEN COMPLETE CLINICAL INFORMATION: Fatty liver. COMPARISON: CT abdomen and pelvis 01/08/2022. Ultrasound abdomen limited 09/07/2020. Ultrasound abdomen complete 04/16/2020. MRI abdomen 11/10/2016. TECHNIQUE: Real-time imaging of the abdominal viscera. Technically limited study secondary to body habitus. FINDINGS: PANCREAS: Normal. ABDOMINAL AORTA: Visualized aorta is normal in caliber however portions are obscured by bowel gas. INFERIOR VENA CAVA: Visualized portions are normal. LIVER: The liver is normal in size. The liver contour is normal. There is diffuse increased liver parenchymal echogenicity, consistent with infiltrative hepatocellular disease. No focal hepatic lesion. There is no intrahepatic biliary duct dilatation seen. GALLBLADDER: Comet tail artifact suggestive of adenomyomatosis. The gallbladder is physiologically distended without evidence of stones, sludge, polyps, wall thickening or pericholecystic fluid. COMMON BILE DUCT: Normal in caliber measuring 0.3 cm in diameter. RIGHT KIDNEY: Normal. No hydronephrosis. No renal calculi or focal parenchymal lesions. The kidney measures 11.1 cm in maximum dimension. LEFT KIDNEY: Normal. No hydronephrosis. No renal calculi or focal parenchymal lesions. The kidney measures 11.0 cm in maximum dimension. SPLEEN: Normal. The spleen measures 8.7 cm in maximum dimension. FREE FLUID: None. US/US abdomen complete IMPRESSION: 1. Increased hepatic echogenicity which can be seen in the setting of hepatic steatosis or underlying liver disease. 2. Adenomyomatosis of the gallbladder. 3. Portions of the aorta were obscured by bowel gas.
== END 2022-12-13 08:08 | disposition home or self-care (01) ==
LOC: HO.US 08:07
PROVIDERS: PCP Family Medicine; Visit Provider Family Medicine
DX: K76.0 Fatty (change of) liver, not elsewhere classified (principal)
CPT/HCPCS: 76700

== ENCOUNTER 2022-12-20 02:42 | Inpatient (IN) | payer MEDICAID, SELFPAY ==
[2022-12-20] VITALS (10 sets, daily range): BP systolic 102–155; BP diastolic 47–80; PULSE 71–123; RESP 16–24; TEMP 36–38.3; O2SAT 89–97; BMI 44.5
--- NOTE | ~2022-12-20 | US_ITS ---
EXAMINATION: US DIAGNOSTIC ULTRASOUND BREAST, RIGHT CLINICAL INFORMATION: Status post incision and drainage right lateral breast abscess performed on 12/20/2022. Follow-up. COMPARISON: Comparison is made with the prior digital breast tomosynthesis 04/15/2022. Otherwise, there is no recent prior right breast imaging immediately preceding the incision and drainage. TECHNIQUE: Ultrasound right breast is targeted to the outer breast using grayscale imaging and color Doppler. FINDINGS: There is no focal cystic or solid mass demonstrated. No edema tracking in soft tissue planes. There is borderline skin thickening. No edema tracking in soft tissue planes. US/US breast RT limited IMPRESSION: -No visible abscess lateral right breast. ASSESSMENT: BI-RADS 2: Benign RECOMMENDATION: -Continued short interval clinical follow-up. .
[2022-12-20 03:29] LABS: Basophils Percent Auto 0.1 % (0-2); Eosinophils Percent Auto 0.4 % (0-4); Hematocrit 36.8 % (37.0-47.0); Hemoglobin 12.4 g/dl (12.0-16.0); Imm Gran Abs Auto 0.04 X10*3/uL (0.00-0.03); Imm Gran Pct Auto 0.4 % (0.0-0.4); Lymphocytes Absolute Auto 3.1 X10*3/uL (1.2-4.9); Lymphocytes Percent Auto 27.5 % (20-40); MANUAL DIFF FLAG NO; Mean Corpuscular HGB Conc 33.7 g/dl (31.0-35.0); Mean Corpuscular Hemoglobin 30.8 pg (27.0-33.0); Mean Corpuscular Volume 91.5 fL (80.0-98.0); Mean Platelet Volume 10.6 fL (9.4-12.3); Monocytes Absolute Auto 1.1 X10*3/uL (0.1-1.2); Monocytes Percent Auto 9.5 % (2-11); Neutrophils Absolute Auto 6.9 x10*3/uL (2.0-8.3); Neutrophils Percent Auto 62.1 % (45-73); Platelet Count 274 X10*3/uL (160-400); Red Blood Count 4.02 X10*6/uL (4.20-5.50); Red Cell Distribution Width 13.2 % (11.0-16.0); White Blood Count 11.1 X10*3/uL (4.8-10.8)
[2022-12-20 03:42] LABS: Anion Gap 15 (12-20); Blood Urea Nitrogen 9 mg/dL (9-16); Calcium 9.7 mg/dL (8.4-10.2); Carbon Dioxide 22 mmol/L (22-29); Chloride 106 mmol/L (96-108); Creatinine Clr Calc Pharmacy 92.4; Estimated Glomerular Filt Rate > 60; Glucose Random 126 mg/dL (60-115); Potassium 4.1 mmol/L (3.3-5.1); Sodium 139 mmol/L (135-145)
--- NOTE | 2022-12-20 04:02 | ED.SKABFB ---
HPI - Skin/Abscess/Foreign Bdy General Chief complaint: Skin/Abscess/Foreign Body Stated complaint: Vomiting/Fever/Abscess/SOB Time Seen by Provider: 12/20/22 03:27 Source: patient Mode of arrival: ambulatory Limitations: no limitations History of Present Illness HPI narrative: Patient noticed small pimple on right side of the chest had a superficial burn few days ago area around the pimple has increase in size with increased redness separate from the burn area which happened from the hot rice while she 1 cooking 2 days prior to the the rash, noticed fever for last 2 days no shortness of breath Related Data Home Medications Medication Instructions Recorded Confirmed docusate sodium 100 mg capsule 100 mg PO DAILY PRN Constipation 03/26/20 07/13/22 (Colace) lorazepam 2 mg tablet (Ativan) 2 mg PO BEDTIME PRN Anxiety 03/26/20 07/13/22 methocarbamol 500 mg tablet 500 mg PO QID PRN Muscle Spasm 03/26/20 07/13/22 pantoprazole 40 mg tablet,delayed 40 mg PO DAILY 03/26/20 07/13/22 release (Protonix) zolpidem 10 mg tablet (Ambien) 5 mg PO BEDTIME PRN Anxiety 03/26/20 07/13/22 tramadol 50 mg tablet 50 mg PO BID PRN Pain 05/20/20 07/13/22 CPAP (CPAP Machine/Device) #1 ea 12/24/20 07/13/22 cetirizine 10 mg tablet 10 mg PO DAILY 07/19/21 07/13/22 duloxetine 60 mg capsule,delayed 60 mg PO DAILY 07/19/21 07/13/22 release fluticasone propionate 50 2 spray intranasal DAILY 07/19/21 07/13/22 mcg/actuation nasal spray,suspension lisinopril 5 mg tablet 5 mg PO DAILY 07/19/21 07/13/22 albuterol sulfate 2.5 mg/3 mL 1 amp inhalation Q4H PRN Wheezing 01/17/22 07/13/22 (0.083 %) solution for nebulization gabapentin 400 mg capsule 400 cap PO BID 01/17/22 07/13/22 multivitamin-iron sulfate 15 1 tab PO DAILY 01/17/22 07/13/22 mg-folic acid 400 mcg tablet (Tab-A-Colton Multivitamin w-iron) naloxone 4 mg/actuation nasal spray spray intranasal 01/17/22 07/13/22 Previous Rx's Medication Instructions Recorded sumatriptan succinate 50 mg tablet 50 mg PO Q2-4H PRN migraine 11/05/20 headache #10 tabs albuterol sulfate 90 mcg/actuation 1 inh inhalation QID PRN shortness 12/28/20 aerosol inhaler of breath or wheezing #8.5 grams polyethylene glycol 3350 17 gram 17 g PO DAILY #30 ea 07/19/21 oral powder packet (Miralax) cholecalciferol (vitamin D3) 50 50 mcg PO DAILY #30 tabs 07/26/21 mcg (2,000 unit) tablet sennosides 8.6 mg tablet (Natural 8.6 mg PO BEDTIME constipation #30 11/17/21 Senna Laxative) tabs fluticasone fur. 200 mcg-umeclid 1 inh inhalation DAILY 30 days #60 11/19/21 62.5 mcg-vilant 25 mcg ea inhalat.powder (Trelegy Ellipta) evolocumab 140 mg/mL subcutaneous 140 mg subcut Q2W 90 days #7 mL 12/31/21 pen injector (Dominic Sunshine) ketorolac 10 mg tablet 10 mg PO BID PRN pain #7 tabs 01/08/22 ibuprofen 600 mg tablet 600 mg PO Q8H PRN pain 14 days #30 01/17/22 tabs fenofibrate 54 mg tablet 54 mg PO DAILY #90 tabs 05/23/22 rosuvastatin 40 mg tablet 40 mg PO DAILY #90 tabs 05/23/22 famotidine 40 mg tablet 40 mg PO BEDTIME #30 tabs 05/27/22 montelukast 10 mg tablet 10 mg PO BEDTIME 30 days #30 tabs 07/15/22 (Singulair) roflumilast 250 mcg tablet 250 mcg PO DAILY 30 days #30 tabs 07/15/22 (Daliresp) amlodipine 10 mg tablet 10 mg PO DAILY #60 tabs 07/18/22 ezetimibe 10 mg tablet 10 mg PO DAILY 90 days #90 tabs 09/16/22 umeclidinium 62.5 mcg-vilanterol 1 inh inhalation DAILY #60 ea 11/24/22 25 mcg/actuation powdr for inhalation (Anoro Ellipta) Allergies Allergy/AdvReac Type Severity Reaction Status Date / Time loratadine [From CLARITIN] Allergy Mild CHILLS AND Verified 12/20/22 02:57 DIFF BREATHING Review of Systems Review of Systems: Yes all other systems are reviewed and are negative [facility] Past Medical History Medical History Acid reflux Asthma-COPD overlap syndrome Chronic restrictive lung disease Coronary artery disease Epigastric pain Fatty liver Fibromyalgia Gall bladder polyp Hyperlipidemia Hypertension Obesity (BMI 30-39.9) NAM treated with BiPAP Pre-op chest exam Sleep apnea Surgical History History of cardiac cath History of endometrial ablation History of esophagogastroduodenoscopy History of partial hysterectomy Hx of tubal ligation Family History Family History Paternal Grandfather No problems noted. Father History of cancer Lung cancer Mother Heart disease Asthma Social History Social History Household Members: Significant Other and Children Housing: Apartment Do you presently have visiting nurse or other home services: No Alcohol intake: former Patient Tobacco Use Status: Former Tobacco user Tobacco use type: Cigarette Years Smoked: 5 years Smoked in Last 30 Days: No Second Hand Smoke Exposure: No Use of substances other than those prescribed or required for medical reasons: No Advance Directives: No Advance Directives Information Provided: Yes Nutrition Risks: No Nutritional Risk Patient : No service: No Current occupational status: disabled Sexual orientation: Straight/Heterosexual Gender identity: Female Physical Exam Vital Signs: Vital Signs: Last Vital Signs Temp 100.3 F 12/20/22 05:54 Pulse 110 H 12/20/22 05:54 Resp 16 12/20/22 05:54 BP 115/64 12/20/22 05:54 Pulse Ox 89 L 12/20/22 05:54 O2 Del Method Room Air 12/20/22 05:54 BMI result Body Mass Index 44.5 Appearance: Alert. Oriented X3. No acute distress. Eyes: PERRLA, No Nystagmus ENT: Pharynx normal. Oral Mucosa moist Neck: Normal inspection. Neck supple. CVS: Normal heart rate and rhythm. Pulses normal. Respiratory: No respiratory distress. Equal air entry bilateral, no wheezing/rales/rhonchi Abdomen: Soft and nontender. Bowel sounds are present, Skin: Skin warm and dry. Normal skin color. Normal skin turgor. Neuro: Oriented X 3. No motor deficit. Medications Administered Discontinued Medications Generic Name Dose Route Start Last Admin Trade Name Freq PRN Reason Stop Dose Admin Sodium Chloride 1,000 mls @ 999 mls/hr 12/20/22 04:02 12/20/22 04:27 Ns IV 12/20/22 05:02 999 mls/hr .Q1H1M ONE Administration Vancomycin HCl 2,000 mg in 500 mls @ 250 mls/hr 12/20/22 04:02 12/20/22 05:06 Vancomycin/Ns IV 12/20/22 06:01 250 mls/hr ONCE ONE Administration Piperacillin Sod/Tazobactam 50 mls @ 100 mls/hr 12/20/22 04:02 12/20/22 04:56 Sod 3.375 gm/ Sodium Chloride IV 12/20/22 04:31 Infused ONCE ONE Infusion Ibuprofen 800 mg 12/20/22 05:08 12/20/22 05:09 Ibuprofen 800 Mg Tablet PO 12/20/22 05:09 800 mg ONCE ONE Administration Lidocaine HCl 10 ml 12/20/22 04:02 12/20/22 04:27 Lidocaine Hcl 1 % Mpf 5 Ml Vial INFILTRATI 12/20/22 04:03 10 ml ONCE ONE Administration Morphine Sulfate 4 mg 12/20/22 04:03 12/20/22 04:26 Morphine Sulfate 4 Mg/Ml Cartridge IVPUSH 12/20/22 04:04 4 mg ONCE ONE Administration Protocol Ondansetron HCl 4 mg 12/20/22 04:03 12/20/22 04:26 Ondansetron Hcl 4 Mg/2 Ml Vial IVPUSH 12/20/22 04:04 4 mg ONCE ONE Administration Medical Decision Making Medical Decision Making [facility] Narrative: Patient with significant cellulitis and abscess axillary area spreading to the breast I and D was done and good amount of pus removed which was sent for culture patient did have fever because the size of the abscess and cellulitis will admit patient for IV antibiotics Lab Data [facility] Lab Attestation statement: I reviewed the patient's lab results. 12/20/22 03:09 12/20/22 03:09 Labs: Lab Results 12/20/22 12/20/22 12/20/22 Range/Units 03:09 03:09 03:09 WBC 11.1 H (4.8-10.8) X10*3/uL RBC 4.02 L (4.20-5.50) X10*6/uL Hgb 12.4 (12.0-16.0) g/dl Hct 36.8 L (37.0-47.0) % MCV 91.5 (80.0-98.0) fL MCH 30.8 (27.0-33.0) pg MCHC 33.7 (31.0-35.0) g/dl RDW 13.2 (11.0-16.0) % Plt Count 274 (160-400) X10*3/uL MPV 10.6 (9.4-12.3) fL Immature Gran % (Auto) 0.4 (0.0-0.4) % Neut % (Auto) 62.1 (45-73) % Lymph % (Auto) 27.5 (20-40) % [place] % (Auto) 9.5 (2-11) % Eos % (Auto) 0.4 (0-4) % Baso % (Auto) 0.1 (0-2) % Lymph # (Auto) 3.1 (1.2-4.9) X10*3/uL [place] # (Auto) 1.1 (0.1-1.2) X10*3/uL Eos # (Auto) 0.0 (0.0-0.4) X10*3/uL Baso # (Auto) 0.0 (0.0-0.2) X10*3/uL Abs Immat Gran (auto) 0.04 H (0.00-0.03) X10*3/uL Absolute Neuts (auto) 6.9 (2.0-8.3) x10*3/uL Absolute Nucleated RBC 0.000 (0.0-0.012) X10*3/uL Nucleated RBC % (auto) 0.0 (0.0-0.2) /100WBC Sodium 139 (135-145) mmol/L Potassium 4.1 (3.3-5.1) mmol/L Chloride 106 (96-108) mmol/L Carbon Dioxide 22 (22-29) mmol/L Anion Gap 15 (12-20) BUN 9 (9-16) mg/dL Creatinine 0.78 (0.5-1.4) mg/dL Estim Creat Clear Calc 92.4 Estimated GFR > 60 Random Glucose 126 H (60-115) mg/dL Lactic Acid 1.0 (0.5-2.0) mmol/L Calcium 9.7 (8.4-10.2) mg/dL Procedures Abscess I/D Site: chest Side (if applicable): right Local Anesthetic: lidocaine 1% Amount of anesthesia used (mL): 25 Technique: incised with blade Amount of fluid expressed (mL): 20 Sent for culture/gram staining?: Yes Irrigation: No Packing used?: iodoform Discharge Plan Discharge Clinical Impression: Abscess, Cellulitis Patient Disposition: Admitted As Inpatient
[2022-12-20] MEDS: ondansetron HCL 4 MG/2 ML VIAL IVPUSH (04:26)
[2022-12-20] MEDS: Piperacillin Sodium/Tazobactam 3.375 GM in 0.9 % Sodium Chloride 50 ML IV (04:26)
[2022-12-20] MEDS: Morphine Sulfate 4 MG/ML CARTRIDGE IVPUSH (04:26)
[2022-12-20] MEDS: 0.9 % Sodium Chloride 1,000 ML 999 ML IV (04:27)
[2022-12-20] MEDS: Lidocaine HCl 1 % MPF 5 ML VIAL 10 ML INFILTRATI (04:27)
[2022-12-20] MEDS: vancomycin/NS 2,000 MG/500 ML PLAST..BAG 250 MG IV (05:06)
--- NOTE | 2022-12-20 05:07 | PC.NURSE ---
unable to scan vancomycin. Verified dose with Meli, RN
[2022-12-20] MEDS: Ibuprofen 800 MG TABLET PO (05:09)
--- NOTE | 2022-12-20 05:44 | PC.NURSE ---
Patient 02 sat 88-89% placed on 2l of supplemental oxygen. Improved to 95%
[2022-12-20 06:19] LABS: MANUAL DIFF FLAG NO
[2022-12-20 06:21] LABS: Basophils Percent Auto 0.2 % (0-2); Eosinophils Percent Auto 0.3 % (0-4); Hematocrit 33.9 % (37.0-47.0); Hemoglobin 11.2 g/dl (12.0-16.0); Imm Gran Abs Auto 0.04 X10*3/uL (0.00-0.03); Imm Gran Pct Auto 0.3 % (0.0-0.4); Lymphocytes Absolute Auto 2.3 X10*3/uL (1.2-4.9); Lymphocytes Percent Auto 19.3 % (20-40); Mean Corpuscular Hemoglobin 30.6 pg (27.0-33.0); Mean Corpuscular Volume 92.6 fL (80.0-98.0); Mean Platelet Volume 10.6 fL (9.4-12.3); Monocytes Percent Auto 8.5 % (2-11); Neutrophils Absolute Auto 8.4 x10*3/uL (2.0-8.3); Neutrophils Percent Auto 71.4 % (45-73); Platelet Count 253 X10*3/uL (160-400); Red Blood Count 3.66 X10*6/uL (4.20-5.50); Red Cell Distribution Width 13.3 % (11.0-16.0); White Blood Count 11.7 X10*3/uL (4.8-10.8)
--- NOTE | 2022-12-20 06:28 | MHC.EDTECH ---
Patient incontinent of urine. Patient back from bathroom and given bath wipes, new linen, [facility] gown, socks (but did not want them on at this time). Patient requested mesh underwear and this was provided. Pts significant other helped her step into/out of pants/underwear. Patient independently got back into bed. Call correa within reach.
[2022-12-20 06:36] LABS: Anion Gap 15 (12-20); Blood Urea Nitrogen 8 mg/dL (9-16); Calcium 8.8 mg/dL (8.4-10.2); Carbon Dioxide 20 mmol/L (22-29); Chloride 108 mmol/L (96-108); Creatinine Clr Calc Pharmacy 98.7; Estimated Glomerular Filt Rate > 60; Glucose Random 124 mg/dL (60-115); Potassium 4.2 mmol/L (3.3-5.1); Sodium 139 mmol/L (135-145)
--- NOTE | 2022-12-20 07:01 | PM.IMHP ---
History of Present Illness Date of Service: 12/20/22 Chief Complaint: abscess Turkish-speaking only, history is obtained with the help of an conference interpreter 52-year-old female with past medical history of asthma, hypertension sleep apnea, on CPAP at bedtime presents the hospital complaints of abscess and bump under her right armpit. Noticed it about 6 days ago that got bigger and more painful. She is not crying with pain, stating the pain is 10/10, nonradiating, no previous similar episode, worse with moving her arm, no alleviating factors. Patient underwent I&D in the ED but continues to have severe pain. She denies any chest pain, shortness of breath, no abdominal pain, no nausea or vomiting, no diarrhea constipation, no urinary symptoms and no lower extremity edema. On arrival to the ED patient found to have tachycardia of 123, respiratory rate of 24, blood pressure of 155/80, fever of 101 Labs are significant for WBC count of 11.1, normal lactic acid, labs otherwise unremarkable Patient continues to have pain, meet sepsis criteria therefore she will be admitted for further management Review of Systems Review of Systems: Yes all other systems are reviewed and are negative [facility] Medical History Acid reflux Asthma-COPD overlap syndrome Chronic restrictive lung disease Coronary artery disease Epigastric pain Fatty liver Fibromyalgia Gall bladder polyp Hyperlipidemia Hypertension Obesity (BMI 30-39.9) NAM treated with BiPAP Pre-op chest exam Sleep apnea Family History Paternal Grandfather No problems noted. Father History of cancer Lung cancer Mother Heart disease Asthma Surgical History History of cardiac cath History of endometrial ablation History of esophagogastroduodenoscopy History of partial hysterectomy Hx of tubal ligation Social History Household Members: Significant Other and Children Housing: Apartment Do you presently have visiting nurse or other home services: No Alcohol intake: former Patient Tobacco Use Status: Former Tobacco user Tobacco use type: Cigarette Years Smoked: 5 years Smoked in Last 30 Days: No Second Hand Smoke Exposure: No Use of substances other than those prescribed or required for medical reasons: No Advance Directives: No Advance Directives Information Provided: Yes Nutrition Risks: No Nutritional Risk Patient : No service: No Current occupational status: disabled Sexual orientation: Straight/Heterosexual Gender identity: Female Meds Allergies Allergy/AdvReac Type Severity Reaction Status Date / Time loratadine [From CLARITIN] Allergy Mild CHILLS AND Verified 12/20/22 02:57 DIFF BREATHING Active Medications: Current Medications Acetaminophen (Acetaminophen 325 Mg Tablet) 650 mg PO Q6H PRN PRN Reason: Pain, Mild (Pain Scale 1-3) Docusate Sodium (Docusate Sodium 100 Mg Capsule) 100 mg PO DAILY PRN PRN Reason: Constipation Ondansetron HCl (Ondansetron Hcl 4 Mg/2 Ml Vial) 4 mg IVPUSH Q8H PRN PRN Reason: Nausea and Vomiting Oxycodone HCl (Oxycodone Hcl Immed Release 5 Mg Tablet) 5 mg PO Q6H PRN PRN Reason: Pain, Severe (Pain Scale 7-10) Pharmacy Consult (Consult Rx Vancomycin Dosing) 1 each MISCELLANE DAILY PRN PRN Reason: Consult order Sodium Chloride (0.9 % Sodium Chloride Flush 3 Ml Syringe) 3 ml IVFLUSH [facility] Home Medications Medication Instructions Recorded Confirmed Last Taken Type docusate sodium 100 mg capsule 100 mg PO DAILY PRN Constipation 03/26/20 07/13/22 Unknown History (Colace) lorazepam 2 mg tablet (Ativan) 2 mg PO BEDTIME PRN Anxiety 03/26/20 07/13/22 Unknown History methocarbamol 500 mg tablet 500 mg PO QID PRN Muscle Spasm 03/26/20 07/13/22 Unknown History pantoprazole 40 mg tablet,delayed 40 mg PO DAILY 03/26/20 07/13/22 Unknown History release (Protonix) zolpidem 10 mg tablet (Ambien) 5 mg PO BEDTIME PRN Anxiety 03/26/20 07/13/22 Unknown History tramadol 50 mg tablet 50 mg PO BID PRN Pain 05/20/20 07/13/22 Unknown History CPAP (CPAP Machine/Device) #1 ea 12/24/20 07/13/22 Unknown History cetirizine 10 mg tablet 10 mg PO DAILY 07/19/21 07/13/22 Unknown History duloxetine 60 mg capsule,delayed 60 mg PO DAILY 07/19/21 07/13/22 Unknown History release fluticasone propionate 50 2 spray intranasal DAILY 07/19/21 07/13/22 Unknown History mcg/actuation nasal spray,suspension lisinopril 5 mg tablet 5 mg PO DAILY 07/19/21 07/13/22 Unknown History albuterol sulfate 2.5 mg/3 mL 1 amp inhalation Q4H PRN Wheezing 01/17/22 07/13/22 Unknown History (0.083 %) solution for nebulization gabapentin 400 mg capsule 400 cap PO BID 01/17/22 07/13/22 Unknown History multivitamin-iron sulfate 15 1 tab PO DAILY 01/17/22 07/13/22 Unknown History mg-folic acid 400 mcg tablet (Tab-A-Colton Multivitamin w-iron) naloxone 4 mg/actuation nasal spray spray intranasal 01/17/22 07/13/22 Unknown History Physical Exam Vital Signs and Narrative: Vital Signs: Last Vital Signs Temp 100.3 F 12/20/22 05:54 Pulse 110 H 12/20/22 05:54 Resp 16 12/20/22 05:54 BP 115/64 12/20/22 05:54 Pulse Ox 89 L 12/20/22 05:54 O2 Del Method Room Air 12/20/22 05:54 BMI result Body Mass Index 44.5 Const: Other: Obese General: cooperative and no acute distress Orientation/consciousness: patient oriented x3 Eyes: General: appearance normal, both eyes and all related structures Resp: Effort & Inspection: normal respiratory effort Auscultation: clear to auscultation bilaterally Cardio: Rate: regular rate Rhythm: regular rhythm GI: Palpation (GI): Soft to palpation Auscultation: normal bowel sounds Skin: Other: Erythema, warmth, significant tenderness mid axillary region on the right, status post drainage in the ED Neuro: General: patient oriented x3 Cognition (Neuro): normal cognition Extrem: General: Yes normal to inspection and Yes no pedal edema Results Labs 12/20/22 06:14 12/20/22 06:14 Labs: Laboratory Results - last 24 hr 12/20/22 12/20/22 12/20/22 03:09 03:09 03:09 MCV 91.5 MCH 30.8 MCHC 33.7 RDW 13.2 Plt Count 274 MPV 10.6 Immature Gran % (Auto) 0.4 Neut % (Auto) 62.1 Lymph % (Auto) 27.5 [place] % (Auto) 9.5 Eos % (Auto) 0.4 Baso % (Auto) 0.1 Lymph # (Auto) 3.1 [place] # (Auto) 1.1 Eos # (Auto) 0.0 Baso # (Auto) 0.0 Abs Immat Gran (auto) 0.04 H Absolute Neuts (auto) 6.9 Absolute Nucleated RBC 0.000 Nucleated RBC % (auto) 0.0 Anion Gap 15 Estim Creat Clear Calc 92.4 Estimated GFR > 60 Random Glucose 126 H Lactic Acid 1.0 Calcium 9.7 12/20/22 12/20/22 06:14 06:14 MCV 92.6 MCH 30.6 MCHC 33.0 RDW 13.3 Plt Count 253 MPV 10.6 Immature Gran % (Auto) 0.3 Neut % (Auto) 71.4 Lymph % (Auto) 19.3 L [place] % (Auto) 8.5 Eos % (Auto) 0.3 Baso % (Auto) 0.2 Lymph # (Auto) 2.3 [place] # (Auto) 1.0 Eos # (Auto) 0.0 Baso # (Auto) 0.0 Abs Immat Gran (auto) 0.04 H Absolute Neuts (auto) 8.4 H Absolute Nucleated RBC 0.000 Nucleated RBC % (auto) 0.0 Anion Gap 15 Estim Creat Clear Calc 98.7 Estimated GFR > 60 Random Glucose 124 H Lactic Acid Calcium 8.8 D Assessment and Plan (1) Acute cellulitis: Status: Acute (2) Abscess: Status: Acute (3) Cellulitis: Qualifiers: Site of cellulitis: unspecified site Qualified Code(s): L03.90 - Cellulitis, unspecified Status: Acute (4) Morbid obesity: Status: Acute Plan 52-year-old female with history of hypertension, NAM on CPAP, presents to the hospital found type abscess # acute sepsis - each criteria with tachycardia, tachypnea, fever, and leukocytosis - secondary to abscess - will treat with IV antibiotics - follow cultures # abscess/cellulitis of mid axillary right - drained by the ED - will follow cultures - continue antibiotics # morbid obesity - recommend outpatient follow-up, and calorie deficit # chronic asthma - stable - not in exacerbation - continue home inhalers # hypertension - stable - continue antihypertensives DVT prophylaxis: Lovenox Given patient's need for IV antibiotics patient will require minimum 2 nights inpatient hospital stay for further management and monitoring Time Spent With Patient Time: Total time managing care of this patient today ____ minutes. Quality Stroke Does the patient have a stroke diagnosis?: No VTE Prior VTE?: No VTE Risk Level:: Medical - low VTE Device Contraindication: Treatment Not Indicated VTE Drug Contraindication: Treatment Not Indicated
--- NOTE | 2022-12-20 07:22 | PC.NURSE ---
Alert and oriented, reports feeling better after abscess was drained. Ate well for breakfast, iv fluids and vanco running per order.
--- NOTE | 2022-12-20 07:59 | PHA.PROG ---
Admission Date/Time: December 20, 2022 07:12 Indication:SKIN AND SKIN TISSUE Weight in k.3 kg Adjusted body weight in K.62 [place] body weight in Kg: Obesity Dosing Indication % IBW: Serum Creatinine - Last 168 Hours 12/20/22 12/20/22 03:09 06:14 Creatinine 0.78 0.73 Estimated CrCl and GFR - Last 168 Hours 12/20/22 12/20/22 03:09 06:14 Estim Creat Clear Calc 92.4 98.7 Estimated GFR > 60 > 60 Vancomycin Loading Dose: 2000 MG Current Vancomycin Dosing Regimen: 1000MG Q12H Vancomycin Monitoring using AUC goal of 400 - 600 range with trough as surrogate marker: AUC 542, TROUGH 16.1 Date and Time for next Vancomycin Level to be drawn: 12/21@1700 Pharmacist Comments on Vancomycin Plan: Vancomycin dosing will take advantage of [employer] as a clinical decision support tool that uses Bayesian modeling to calculate individual patient's pharmacokinetic parameters and forecast the patient's drug concentration time course with the target goal AUC 24 range of 400 - 600 mg/L/hr.
[2022-12-20] MEDS: Enoxaparin Sodium 40 MG/0.4 ML SYRINGE SUBCUT ×2 (08:17→19:30)
[2022-12-20] MEDS: cefEPime HCl 2 GM in 0.9 % Sodium Chloride 50 ML IV (08:17)
[2022-12-20] MEDS: 0.9 % Sodium Chloride Flush 3 ML SYRINGE IVFLUSH ×3 (08:21→23:53)
[2022-12-20 08:34] LABS: Estimated Average Glucose 123 mg/dL; Hemoglobin A1c % 5.9 %
--- NOTE | 2022-12-20 09:27 | PC.NURSE ---
Report given to accepting unit
--- NOTE | 2022-12-20 09:36 | PHA.MEDREC ---
Pharmacy Consult ? Medication Reconciliation Medications confirmed with patient. Pharmacy has completed the medication reconciliation.
--- NOTE | 2022-12-20 11:13 | PM.EVENT ---
Event Note Date of Service: 12/20/22 Event Note: day hospitalist update S Fever resolved Axila painful O VS- T 96.8, P 96, R 16, SaO2 97 on 2L NC gen- NAD lungs- CTAB CV- RRR no m/r/g abd- soft, obese, NT ext- no edema derm- erythema/warmth/tenderness R axila, drained abscess neuro- no focal findings psych- normal affect A/P d#1 52yo F with obesity, NAM on CPAP, HTN admitted for sepsis due to axillary abscess with cellulitis abscess drained in ED with removal of 20 mL of purulent fluid # purulent cellulitis - vanco d#1, follow wound + blood cultures # COPD/severe persistent asthma not in acute exac - continue inhalers, roflumilast, montelukast # HTN - amlodipine # HLD # CAD - continue statin # NAM - CPAP at night # morbid obesity - diet/exercise counseling # VTE ppx: LMWH # dispo: eventual home In my clinical judgment, the patient requires continued inpatient hospitalization for the following reasons: IV ABX Time Spent With Patient Time: Total time managing care of this patient today ____ minutes.
[2022-12-20] MEDS: amLODIPine Besylate 10 MG TABLET PO (12:45)
[2022-12-20] MEDS: Multivitamin TABLET 1 TAB PO (12:45)
[2022-12-20] MEDS: DULoxetine HCl 60 MG CAPSULE.DR PO (12:45)
[2022-12-20] MEDS: oxyCODONE HCl Immed Release 5 MG TABLET PO (15:20)
[2022-12-20] MEDS: traMADoL HCL 50 MG TABLET PO (19:28)
[2022-12-20] MEDS: vancomycin HCL 1,250 MG in 0.9 % Sodium Chloride 250 ML 166.67 MG IV (19:31)
[2022-12-20] MEDS: Montelukast Sodium 10 MG TABLET PO (22:18)
[2022-12-21] MEDS: oxyCODONE HCl Immed Release 5 MG TABLET PO ×3 (00:18→16:33)
[2022-12-21 03:48] VITALS: BP 124/62; PULSE 101; RESP 18; TEMP 36.1; O2SAT 93
[2022-12-21 06:32] LABS: Creatinine Clr Calc Pharmacy 98.7; Estimated Glomerular Filt Rate > 60
[2022-12-21] MEDS: vancomycin HCL 1,250 MG in 0.9 % Sodium Chloride 250 ML 166.67 MG IV (06:41)
[2022-12-21 07:40] VITALS: BP 130/67; PULSE 95; RESP 18; TEMP 36.1; O2SAT 96
[2022-12-21] MEDS: DULoxetine HCl 60 MG CAPSULE.DR PO (08:09)
[2022-12-21] MEDS: Multivitamin TABLET 1 TAB PO (08:09)
[2022-12-21] MEDS: amLODIPine Besylate 10 MG TABLET PO (08:09)
[2022-12-21] MEDS: Enoxaparin Sodium 40 MG/0.4 ML SYRINGE SUBCUT ×2 (08:10→19:09)
[2022-12-21] MEDS: Fluticasone Propionate Nasal 16 GM SPRAY 2 SPRAY NOSTRIL-B (08:10)
[2022-12-21] MEDS: Fluticasone/Umeclidinium/Vilanterol 200/62.5/25 BLST.W.DEV 1 PUFF INHALE (08:15)
[2022-12-21 08:18] VITALS: PULSE 96; RESP 20; O2SAT 95
--- NOTE | 2022-12-21 09:55 | P.PNIM_ITS ---
Subjective Subjective Date of Service: 12/21/22 Interval History: painful drainage site swelling+redness improved fever resolved This history was taken in Frisian from the patient. Review of Systems Review of Systems: Yes all other systems are reviewed and are negative Physical Exam Vital Signs: Vital Signs: Last Vital Signs Temp 96.9 F 12/21/22 07:40 Pulse 96 12/21/22 08:18 Resp 20 12/21/22 08:18 BP 130/67 12/21/22 07:40 Pulse Ox 96 12/21/22 07:40 O2 Del Method Room Air 12/21/22 07:40 O2 Flow Rate 2 12/20/22 14:01 BMI result Body Mass Index 44.5 Gen: in no acute distress HEENT: sclera anicteric, moist mucus membranes Neck: supple Lungs: clear to auscultation bilaterally Heart: regular rate and rhythm, no murmurs Abd: soft, non-tender, non-distended, obese Ext: no edema Skin: erythema/warmth/tenderness R axila, drained abscess without residual purulence Neuro: alert and oriented x3, no focal findings Psych: appropriate affect Objective Data Active Medications Acetaminophen (Acetaminophen 325 Mg Tablet) 650 mg PO Q6H PRN PRN Reason: Pain, Mild (Pain Scale 1-3) Albuterol Sulfate (Albuterol Sulfate 90 Mcg 8 Gm Inhaler) 1 puff INHALE QID PRN PRN Reason: shortness of breath or wheezing Albuterol Sulfate (Albuterol Sulfate (0.083%) 2.5 Mg/3 Ml Vial.Neb) 2.5 mg INHALE Q4H PRN PRN Reason: Wheezing Amlodipine Besylate (Amlodipine Besylate 10 Mg Tablet) 10 mg PO DAILY [facility]; Protocol Last Admin: 12/21/22 08:09 Dose: 10 mg Documented By: MIGNON Atorvastatin Calcium (Atorvastatin Calcium 80 Mg Tablet) 80 mg PO BEDTIME [facility] Docusate Sodium (Docusate Sodium 100 Mg Capsule) 100 mg PO DAILY PRN PRN Reason: Constipation Duloxetine HCl (Duloxetine Hcl 60 Mg Capsule.) 60 mg PO DAILY [facility] Last Admin: 12/21/22 08:09 Dose: 60 mg Documented By: MIGNON Enoxaparin Sodium (Enoxaparin Sodium 40 Mg/0.4 Ml Syringe) 40 mg SUBCUT Q12H [facility] Last Admin: 12/21/22 08:10 Dose: 40 mg Documented By: MIGNON Fluticasone Propionate (Fluticasone Propionate Nasal 16 Gm [place]) 2 spray NOSTRIL-B DAILY [facility] Last Admin: 12/21/22 08:10 Dose: 2 spray Documented By: MIGNON Fluticasone/Umeclidinium/Vilanterol (Fluticasone/Umeclidinium/Vilanterol 200/62.5/25 Blst.W.Dev) 1 puff INHALE RDAILY [facility] Last Admin: 12/21/22 08:15 Dose: 1 puff Documented By: VANESSA Gabapentin (Gabapentin 400 Mg Capsule) 400 mg PO BID [facility] Last Admin: 12/21/22 08:10 Dose: Not Given Documented By: MIGNON Non-Admin Reason: Patient Refused Vancomycin HCl 1,250 mg/ (Sodium Chloride) 250 mls @ 166.667 mls/hr IV Q12H [facility] Last Infusion: 12/21/22 08:16 Dose: 166.67 mls/hr Documented By: MIGNON Lorazepam (Lorazepam 1 Mg Tablet) 2 mg PO BEDTIME PRN PRN Reason: Anxiety Montelukast Sodium (Montelukast Sodium 10 Mg Tablet) 10 mg PO BEDTIME [facility] Last Admin: 12/20/22 22:18 Dose: 10 mg Documented By: HEENA Morphine Sulfate (Morphine Sulfate 2 Mg/Ml Cartridge) 2 mg IVPUSH Q4H PRN; Protocol PRN Reason: severe pain Multivitamins/Vitamin C (Multivitamin Tablet) 1 tab PO DAILY [facility] Last Admin: 12/21/22 08:09 Dose: 1 tab Documented By: MIGNON Ondansetron HCl (Ondansetron Hcl 4 Mg/2 Ml Vial) 4 mg IVPUSH Q8H PRN PRN Reason: Nausea and Vomiting Oxycodone HCl (Oxycodone Hcl Immed Release 5 Mg Tablet) 5 mg PO Q4H PRN PRN Reason: Pain, moderate Pharmacy Consult (Consult Rx Vancomycin Dosing) 1 each MISCELLANE DAILY PRN PRN Reason: Consult order Sodium Chloride (0.9 % Sodium Chloride Flush 3 Ml Syringe) 3 ml IVFLUSH QSHIFT [facility] Last Admin: 12/21/22 09:29 Dose: Not Given Documented By: MIGNON Non-Admin Reason: No Access Sumatriptan Succinate (Sumatriptan Succinate 50 Mg Tablet) 50 mg PO Q2H PRN PRN Reason: migraine headache Tramadol HCl (Tramadol Hcl 50 Mg Tablet) 50 mg PO BID PRN PRN Reason: Pain severe Last Admin: 12/20/22 19:28 Dose: 50 mg Documented By: HEENA Zolpidem Tartrate (Zolpidem Tartrate 5 Mg Tablet) 5 mg PO BEDTIME PRN PRN Reason: Anxiety Labs 12/20/22 06:14 12/21/22 05:23 Labs: Laboratory Results - last 24 hr 12/21/22 05:23 Estim Creat Clear Calc 98.7 Estimated GFR > 60 Microbiology Microbiology Results: Microbiology 12/20/22 03:09 Blood Culture - Preliminary Blood - Venous No growth after 24 hours. 12/20/22 03:09 Blood Culture - Preliminary Blood - Venous No growth after 24 hours. 12/20/22 05:45 Gram Stain - Final Breast Right Assessment and Plan (1) Acute cellulitis: Status: Acute Assessment and Plan: d#2 52yo F with obesity, NAM on CPAP, HTN admitted for sepsis due to axillary abscess with cellulitis abscess drained in ED with removal of 20 mL of purulent fluid # purulent cellulitis - vanco d#2, follow wound + blood cultures # COPD/severe persistent asthma not in acute exac - continue inhalers, roflumilast, montelukast # HTN - amlodipine # HLD # CAD - continue statin # NAM - CPAP at night # morbid obesity - diet/exercise counseling # VTE ppx: LMWH # dispo: eventual home In my clinical judgment, the patient requires continued inpatient hospitalization for the following reasons: IV ABX, awaiting final culture results Time Spent With Patient Time: Total time managing care of this patient today ____ minutes. Quality Stroke Does the patient have a stroke diagnosis?: No VTE Prior VTE?: No VTE Risk Level:: Medical - low VTE Device Contraindication: Treatment Not Indicated VTE Drug Contraindication: Treatment Not Indicated
--- NOTE | 2022-12-21 13:07 | MHC.CM.PN ---
Female 52 DX cellulitis Patient lives with family. She uses a cane prn. Patient is independent with all functional mobility. She declined the offer to document a HCP. DP home self care. She will transport home via Family.
[2022-12-21 15:43] VITALS: BP 92/56; PULSE 94; RESP 18; TEMP 35.8; O2SAT 95
[2022-12-21] MEDS: 0.9 % Sodium Chloride Flush 3 ML SYRINGE IVFLUSH (16:35)
[2022-12-21 17:33] VITALS: BP 126/60; PULSE 92
[2022-12-21 17:49] LABS: Glucose, Whole Blood 122 mg/dL (60-115)
[2022-12-21 17:58] LABS: Vancomycin Random 10.9 mcg/mL (15-20)
[2022-12-21] MEDS: vancomycin HCL 1,500 MG in 0.9 % Sodium Chloride 500 ML 333.33 MG IV (19:08)
[2022-12-21 19:40] VITALS: BP 118/61; PULSE 90; RESP 20; TEMP 36.1; O2SAT 93
[2022-12-21] MEDS: Montelukast Sodium 10 MG TABLET PO (20:08)
[2022-12-21] MEDS: Atorvastatin Calcium 80 MG TABLET PO (20:08)
[2022-12-21] MEDS: Acetaminophen 325 MG TABLET 650 MG PO (21:53)
[2022-12-22 00:02] VITALS: PULSE 90; RESP 20; O2SAT 94
[2022-12-22] MEDS: 0.9 % Sodium Chloride Flush 3 ML SYRINGE IVFLUSH ×2 (00:24→07:58)
[2022-12-22 04:00] VITALS: BP 121/66; PULSE 85; RESP 18; TEMP 36.3; O2SAT 96
[2022-12-22 06:27] LABS: Creatinine Clr Calc Pharmacy 102.9; Estimated Glomerular Filt Rate > 60
[2022-12-22] MEDS: amLODIPine Besylate 10 MG TABLET PO (07:58)
[2022-12-22] MEDS: Enoxaparin Sodium 40 MG/0.4 ML SYRINGE SUBCUT (07:58)
[2022-12-22] MEDS: DULoxetine HCl 60 MG CAPSULE.DR PO (07:58)
[2022-12-22] MEDS: vancomycin HCL 1,500 MG in 0.9 % Sodium Chloride 500 ML 333.33 MG IV (07:58)
[2022-12-22] MEDS: Multivitamin TABLET 1 TAB PO (07:58)
[2022-12-22 08:00] VITALS: BP 136/69; PULSE 80; RESP 20; TEMP 36.3; O2SAT 96
[2022-12-22] MEDS: Fluticasone Propionate Nasal 16 GM SPRAY 2 SPRAY NOSTRIL-B (08:00)
[2022-12-22] MEDS: Fluticasone/Umeclidinium/Vilanterol 200/62.5/25 BLST.W.DEV 1 PUFF INHALE (08:13)
[2022-12-22 08:14] VITALS: PULSE 85; RESP 18; O2SAT 94
[2022-12-22] MEDS: oxyCODONE HCl Immed Release 5 MG TABLET PO (10:43)
[2022-12-22] MEDS: Morphine Sulfate 4 MG/ML CARTRIDGE IVPUSH (13:16)
--- NOTE | 2022-12-22 14:29 | P.F2F_ITS ---
Service Date Service Date: 12/22/22 Encounter Date of encounter: 12/22/22 Reasons for Services Signs and symptoms assessed: wound care Reason for residential: wound care MD Overseeing Care: Ava Yap Homebound: Leaving the home is medically contraindicated at this time without the asist of a device and/or another person due th the listed conditions above and below. Reason homebound: immunosuppression / infection risk Certification: Based on the above findings, I certify that this patient is confined to the home and needs intermittent residential care, physical therapy and/or speech therapy, or continues to need occupational therapy. The patient is under my care, and I have initiated the establishment of the plan of care. The patient will be followed by a physician who will periodically review the plan of care. Time Spent With Patient Time: Total time managing care of this patient today ____ minutes.
--- NOTE | 2022-12-22 14:53 | P.DS_ITS ---
DS: Providers Provider Date of Service: 12/22/22 Date of admission: 12/20/22 07:12 Date of discharge: 12/22/22 Primary care physician: Ava Yap DO DS: Diagnosis Discharge Diagnosis (1) Acute cellulitis: Status: Acute (2) Abscess of axilla, right: Status: Acute DS: Summary Hospital Course Hospital Course: from H+P by hospitalist Charli Holguin MD, 12/20/22: 52-year-old female with past medical history of asthma, hypertension sleep apnea, on CPAP at bedtime presents the hospital complaints of abscess and bump under her right armpit.? Noticed it about 6 days ago that got bigger and more painful.? She is not crying with pain, stating the pain is 10/10, nonradiating, no previous similar episode, worse with moving her arm, no alleviating factors.? Patient underwent I&D in the ED but continues to have severe pain.? She denies any chest pain, shortness of breath, no abdominal pain, no nausea or vomiting, no diarrhea constipation, no urinary symptoms and no lower extremity edema.? On arrival to the ED patient found to have tachycardia of 123, respiratory rate of 24, blood pressure of 155/80, fever of 101 Labs are significant for WBC count of 11.1, normal lactic acid, labs otherwise unremarkable Patient continues to have pain, meet sepsis criteria therefore she will be admitted for further management 52yo F with obesity, NAM on CPAP, and HTN admitted for sepsis due to axillary abscess with cellulitis. The abscess wasdrained in the ED with removal of 20 mL of purulent fluid. Wound culture grew MRSA. Blood cultures were negative. She was treated with 48 hours of vancomycin. She was discharged on doxycycline with VNA services for wound packing/dressing changes. Time Spent with Patient Time attestation: Total time managing care of this patient today _40___ minutes. Discharge coordination time: Greater than 30 minutes Quality: Safe Use of Opioids Does Pt have an Active Cancer Diagnosis on the Problem List?: No Quality: Stroke Does the patient have a stroke diagnosis?: No Physical Exam Vital Signs: Vital Signs: Last Vital Signs Temp 97.3 F 12/22/22 08:00 Pulse 85 12/22/22 08:14 Resp 18 12/22/22 08:14 BP 136/69 12/22/22 08:00 Pulse Ox 96 12/22/22 08:00 O2 Del Method Room Air 12/22/22 08:00 O2 Flow Rate 2 12/20/22 14:01 BMI result Body Mass Index 44.5 Gen: in no acute distress HEENT: sclera anicteric, moist mucus membranes Neck: supple Lungs: clear to auscultation bilaterally Heart: regular rate and rhythm, no murmurs Abd: soft, non-tender, non-distended, obese Ext: no edema Skin: minimal swelling and erythema in the R axila, drained abscess without residual purulence Neuro: alert and oriented x3, no focal findings Psych: appropriate affect DS: Data Data Completed and Pending Completed studies during hospitalization [Text1]: Laboratory Results WBC 11.7 X10*3/uL (4.8-10.8) H 12/20/22 06:14 RBC 3.66 X10*6/uL (4.20-5.50) L 12/20/22 06:14 Hgb 11.2 g/dl (12.0-16.0) L 12/20/22 06:14 Hct 33.9 % (37.0-47.0) L 12/20/22 06:14 MCV 92.6 fL (80.0-98.0) 12/20/22 06:14 MCH 30.6 pg (27.0-33.0) 12/20/22 06:14 MCHC 33.0 g/dl (31.0-35.0) 12/20/22 06:14 RDW 13.3 % (11.0-16.0) 12/20/22 06:14 Plt Count 253 X10*3/uL (160-400) 12/20/22 06:14 MPV 10.6 fL (9.4-12.3) 12/20/22 06:14 Immature Gran % (Auto) 0.3 % (0.0-0.4) 12/20/22 06:14 Neut % (Auto) 71.4 % (45-73) 12/20/22 06:14 Lymph % (Auto) 19.3 % (20-40) L 12/20/22 06:14 Turner % (Auto) 8.5 % (2-11) 12/20/22 06:14 Eos % (Auto) 0.3 % (0-4) 12/20/22 06:14 Baso % (Auto) 0.2 % (0-2) 12/20/22 06:14 Lymph # (Auto) 2.3 X10*3/uL (1.2-4.9) 12/20/22 06:14 Turner # (Auto) 1.0 X10*3/uL (0.1-1.2) 12/20/22 06:14 Eos # (Auto) 0.0 X10*3/uL (0.0-0.4) 12/20/22 06:14 Baso # (Auto) 0.0 X10*3/uL (0.0-0.2) 12/20/22 06:14 Abs Immat Gran (auto) 0.04 X10*3/uL (0.00-0.03) H 12/20/22 06:14 Absolute Neuts (auto) 8.4 x10*3/uL (2.0-8.3) H 12/20/22 06:14 Absolute Nucleated RBC 0.000 X10*3/uL (0.0-0.012) 12/20/22 06:14 Nucleated RBC % (auto) 0.0 /100WBC (0.0-0.2) 12/20/22 06:14 Sodium 139 mmol/L (135-145) 12/20/22 06:14 Potassium 4.2 mmol/L (3.3-5.1) 12/20/22 06:14 Chloride 108 mmol/L (96-108) 12/20/22 06:14 Carbon Dioxide 20 mmol/L (22-29) L 12/20/22 06:14 Anion Gap 15 (12-20) 12/20/22 06:14 BUN 8 mg/dL (9-16) L 12/20/22 06:14 Creatinine 0.70 mg/dL (0.5-1.4) 12/22/22 05:47 Estim Creat Clear Calc 102.9 12/22/22 05:47 Estimated GFR > 60 12/22/22 05:47 POC Glucose 122 mg/dL (60-115) H 12/21/22 17:43 Random Glucose 124 mg/dL (60-115) H 12/20/22 06:14 Estimat Average Glucose 123 mg/dL 12/20/22 03:09 Hemoglobin A1c % 5.9 % 12/20/22 03:09 Lactic Acid 1.0 mmol/L (0.5-2.0) 12/20/22 03:09 Calcium 8.8 mg/dL (8.4-10.2) D 12/20/22 06:14 Random Vancomycin 10.9 mcg/mL (15-20) L 12/21/22 17:18 Impressions Breast Ultrasound 12/22/22 11:20 IMPRESSION: -No visible abscess lateral right breast. ASSESSMENT: BI-RADS 2: Benign RECOMMENDATION: -Continued short interval clinical follow-up. . Discharge Plan Discharge Anticipated Discharge Date/Time: 12/22/22 14:29 Patient Disposition: Home Health Service Discharge Diagnosis: abscess and cellulitis right axila Referrals: Ava Yap DO [Primary Care Provider] - 1 Week Discharge Medications: New doxycycline monohydrate 100 mg tablet 100 mg PO BID Qty: 14 0RF Continued cholecalciferol (vitamin D3) 50 mcg (2,000 unit) tablet 50 mcg PO DAILY Qty: 30 6RF sennosides [Natural Senna Laxative] 8.6 mg tablet 8.6 mg PO BEDTIME Qty: 30 3RF Repatha SureClick 140 mg/mL pen injector 140 mg subcut Q2W 90 Days Qty: 7 3RF rosuvastatin 40 mg tablet 40 mg PO DAILY Qty: 90 3RF fenofibrate 54 mg tablet 54 mg PO DAILY Qty: 90 3RF famotidine 40 mg tablet 40 mg PO BEDTIME Qty: 30 3RF amlodipine 10 mg tablet 10 mg PO DAILY Qty: 60 3RF ezetimibe 10 mg tablet 10 mg PO DAILY 90 Days Qty: 90 3RF Anoro Ellipta 62.5-25 mcg/actuation blister with device 1 inh inhalation DAILY Qty: 60 11RF sumatriptan succinate 50 mg tablet 50 mg PO Q2-4H PRN (Reason: migraine headache) Qty: 10 0RF Rx Instructions: do not exceed 4 doses per 24 hrs tramadol 50 mg Tablet 50 mg PO BID PRN (Reason: Pain) albuterol sulfate 90 mcg/actuation HFA aerosol inhaler 1 inh inhalation QID PRN (Reason: shortness of breath or wheezing) Qty: 8.5 0RF albuterol sulfate 2.5 mg /3 mL (0.083 %) solution for nebulization 1 amp inhalation Q4H PRN (Reason: Wheezing) gabapentin 400 mg capsule 400 cap PO BID naloxone 4 mg/actuation spray,non-aerosol 1 spray intranasal ONCE PRN (Reason: Opioid Overdose) Tab-A-Colton Multivitamin w-iron 15 mg iron- 400 mcg tablet 1 tab PO DAILY lorazepam [Ativan] 2 mg tablet 2 mg PO BEDTIME PRN (Reason: Anxiety) zolpidem [Ambien] 10 mg tablet 5 mg PO BEDTIME PRN (Reason: Anxiety) docusate sodium [Colace] 100 mg capsule 100 mg PO DAILY PRN (Reason: Constipation) (DME) CPAP Machine/Device Device See Rx Instructions .ROUTE .MEDSUPPLY Qty: 1 Rx Instructions: As directed duloxetine 60 mg capsule,delayed release(DR/EC) 60 mg PO DAILY fluticasone propionate 50 mcg/actuation spray,suspension 2 spray intranasal DAILY lisinopril 5 mg tablet 5 mg PO DAILY cetirizine 10 mg tablet 10 mg PO DAILY polyethylene glycol 3350 [Miralax] 17 gram powder in packet 17 g PO DAILY Qty: 30 5RF roflumilast [Daliresp] 250 mcg tablet 250 mcg PO DAILY 30 Days Qty: 30 11RF montelukast [Singulair] 10 mg tablet 10 mg PO BEDTIME 30 Days Qty: 30 11RF Trelegy Ellipta 200-62.5-25 mcg blister with device 1 inh inhalation DAILY 30 Days Qty: 60 12RF ibuprofen 600 mg tablet 600 mg PO Q8H PRN (Reason: pain) 14 Days Qty: 30 0RF Discharge Orders: Discharge Order (Routine); Ordered 12/22/22 Ordered By: Gerard Silverman Diet: Low fat, low cholesterol Activity on Discharge: As tolerated Stand Alone Forms: Patient Portal Discharge page Care Plan Goals: cure infection Health Concerns: abscess and cellulitis of right axila Plan of Treatment: drained in ED on 12/20/22 wound care every 2 days: replace packing and cover with gauze doxycycline 100 mg twice daily for 7 days Please follow up with your primary care doctor within 1 week. Return to the hospital if you experience recurrent or worsening symptoms. Assessment: See Discharge Summary.
--- NOTE | 2022-12-22 16:20 | MHC.CM.PN ---
PT DISCHARGED HOME TODAY WITH [facility] FOR SN SERVICES TO START ON MONDAY FAMILY PROVIDED TRANSPORT
== END 2022-12-22 15:39 | disposition home health service (06) | DRG 720 ==
LOC: HO.ED 05:21 → HO.EDOVER 05:41 → HO.S3 08:52
PROVIDERS: Admitting Provider Internal Medicine; Emergency Provider Internal Medicine; PCP Family Medicine; Visit Provider Family Medicine
DX: A41.9 Sepsis, unspecified organism (principal); E66.01 Morbid (severe) obesity due to excess calories; G47.33 Obstructive sleep apnea (adult) (pediatric); I25.10 Atherosclerotic heart disease of native coronary artery without angina pectoris; L02.411 Cutaneous abscess of right axilla; B95.62 Methicillin resistant Staphylococcus aureus infection as the cause of diseases classified elsewhere; J45.50 Severe persistent asthma, uncomplicated; I10 Essential (primary) hypertension; Z71.3 Dietary counseling and surveillance; J44.9 Chronic obstructive pulmonary disease, unspecified; Z68.41 Body mass index [BMI] 40.0-44.9, adult; Z87.891 Personal history of nicotine dependence; Z79.51 Long term (current) use of inhaled steroids; Z79.899 Other long term (current) drug therapy
CPT/HCPCS: 36415; 76642; 80048; 80202; 82565; 82947; 83036; 83605; 85025; 87040; 87070; 87077; 87186; 87205; 94640; 94660; 99221; 99285; J0692; J1650; J2270; J2405; J2543; J3370; J3371

== ENCOUNTER 2022-12-22 23:07 | Emergency (ER) | payer MEDICAID, SELFPAY ==
[2022-12-22 23:09] VITALS: BP 130/79; PULSE 84; O2SAT 100
[2022-12-22 23:24] VITALS: BP 130/79; PULSE 84; O2SAT 100; BMI 48.5
[2022-12-22 23:35] VITALS: BP 163/75; PULSE 90; RESP 20; TEMP 37.2; O2SAT 98
--- NOTE | 2022-12-23 00:26 | ED_ITS ---
HPI - General Adult General Chief complaint: Anxiety Stated complaint: feeling unwell after taking antibiotics, per ems Time Seen by Provider: 12/23/22 00:20 Source: patient Mode of arrival: EMS Limitations: no limitations History of Present Illness HPI narrative: Patient comes to the emergency room via ambulance complaining that she took doxycycline for a left axillary abscess, 30 minutes later, patient started feeling very anxious, began feeling that she was flushing, took lorazepam and her symptoms subsided. Patient states that she also used a nebulization treatment which helped her to calm down. Patient is convinced that she had an allergic reaction. Patient denies oropharyngeal swelling, no difficulty breathing, no urticaria Related Data Home Medications Medication Instructions Recorded Confirmed docusate sodium 100 mg capsule 100 mg PO DAILY PRN Constipation 03/26/20 12/20/22 (Colace) lorazepam 2 mg tablet (Ativan) 2 mg PO BEDTIME PRN Anxiety 03/26/20 12/20/22 zolpidem 10 mg tablet (Ambien) 5 mg PO BEDTIME PRN Anxiety 03/26/20 12/20/22 tramadol 50 mg tablet 50 mg PO BID PRN Pain 05/20/20 12/20/22 CPAP (CPAP Machine/Device) #1 ea 12/24/20 07/13/22 cetirizine 10 mg tablet 10 mg PO DAILY 07/19/21 12/20/22 duloxetine 60 mg capsule,delayed 60 mg PO DAILY 07/19/21 12/20/22 release fluticasone propionate 50 2 spray intranasal DAILY 07/19/21 12/20/22 mcg/actuation nasal spray,suspension lisinopril 5 mg tablet 5 mg PO DAILY 07/19/21 07/13/22 albuterol sulfate 2.5 mg/3 mL 1 amp inhalation Q4H PRN Wheezing 01/17/22 12/20/22 (0.083 %) solution for nebulization gabapentin 400 mg capsule 400 cap PO BID 01/17/22 12/20/22 multivitamin-iron sulfate 15 1 tab PO DAILY 01/17/22 12/20/22 mg-folic acid 400 mcg tablet (Tab-A-Colton Multivitamin w-iron) naloxone 4 mg/actuation nasal spray 1 spray intranasal ONCE PRN Opioid 01/17/22 12/20/22 Overdose Previous Rx's Medication Instructions Recorded sumatriptan succinate 50 mg tablet 50 mg PO Q2-4H PRN migraine 11/05/20 headache #10 tabs albuterol sulfate 90 mcg/actuation 1 inh inhalation QID PRN shortness 12/28/20 aerosol inhaler of breath or wheezing #8.5 grams polyethylene glycol 3350 17 gram 17 g PO DAILY #30 ea 07/19/21 oral powder packet (Miralax) cholecalciferol (vitamin D3) 50 50 mcg PO DAILY #30 tabs 07/26/21 mcg (2,000 unit) tablet sennosides 8.6 mg tablet (Natural 8.6 mg PO BEDTIME constipation #30 11/17/21 Senna Laxative) tabs fluticasone fur. 200 mcg-umeclid 1 inh inhalation DAILY 30 days #60 11/19/21 62.5 mcg-vilant 25 mcg ea inhalat.powder (Trelegy Ellipta) evolocumab 140 mg/mL subcutaneous 140 mg subcut Q2W 90 days #7 mL 12/31/21 pen injector (Dominic Sunshine) ibuprofen 600 mg tablet 600 mg PO Q8H PRN pain 14 days #30 01/17/22 tabs fenofibrate 54 mg tablet 54 mg PO DAILY #90 tabs 05/23/22 rosuvastatin 40 mg tablet 40 mg PO DAILY #90 tabs 05/23/22 famotidine 40 mg tablet 40 mg PO BEDTIME #30 tabs 05/27/22 montelukast 10 mg tablet 10 mg PO BEDTIME 30 days #30 tabs 07/15/22 (Singulair) roflumilast 250 mcg tablet 250 mcg PO DAILY 30 days #30 tabs 07/15/22 (Daliresp) amlodipine 10 mg tablet 10 mg PO DAILY #60 tabs 07/18/22 ezetimibe 10 mg tablet 10 mg PO DAILY 90 days #90 tabs 09/16/22 umeclidinium 62.5 mcg-vilanterol 1 inh inhalation DAILY #60 ea 11/24/22 25 mcg/actuation powdr for inhalation (Anoro Ellipta) doxycycline monohydrate 100 mg 100 mg PO BID #14 tabs 12/22/22 tablet sulfamethoxazole 800 1 tab PO BID #14 tabs 12/23/22 mg-trimethoprim 160 mg tablet (Bactrim DS) Allergies Allergy/AdvReac Type Severity Reaction Status Date / Time loratadine [From CLARITIN] Allergy Mild CHILLS AND Verified 12/20/22 02:57 DIFF BREATHING Review of Systems Review of Systems: Constitutional : No Weight loss, No Fever, No Chills, No Night Sweats, No Fatigue, No Malaise ENT/Mouth : No Hearing loss, No Ear Pain, No Nasal Congestion, No Sinus Pain, No Hoarseness, No sore throat, No Rhinorrhea, No Swallowing Difficulty Eyes: No Eye Pain, No Swelling, No Redness, No Foreign Body, No Discharge, No Vision Changes Cardiovascular : No Chest Pain, No SOB, No Dyspnea on Exertion, No Orthopnea, No Edema, No Palpitations Respiratory : No Cough, No Sputum, No Wheezing, No Smoke Exposure, No Dyspnea Gastrointestinal : No Nausea, No Vomiting, No Diarrhea, No Constipation, No abdominal Pain, No Hematochezia, No Melena Genitourinary : no irregular bleeding, No Dysuria, No Urinary Frequency, No Hematuria, No Urinary Incontinence, No Urgency, No Flank Pain, No Urinary Flow Changes, No Hesitancy Musculoskeletal : No joint pain, No Myalgias, No Joint Swelling Skin : No Skin Lesions, No rash Neuro : No Weakness, No Numbness, No Paresthesias, No Loss of Consciousness, No Dizziness, No Headache Psych : Anxiety No Depression, No SI/HI/AH/VH, No Social Issues, Heme/Lymph: No Bruising, No Bleeding,No Lymphadenopathy Endocrine : No Polyuria, No Polydipsia, No Temperature Intolerance PMFSH Past Medical History Medical History Acid reflux Asthma-COPD overlap syndrome Chronic restrictive lung disease Coronary artery disease Epigastric pain Fatty liver Fibromyalgia Gall bladder polyp Hyperlipidemia Hypertension Obesity (BMI 30-39.9) NAM treated with BiPAP Pre-op chest exam Sleep apnea Surgical History History of cardiac cath History of endometrial ablation History of esophagogastroduodenoscopy History of partial hysterectomy Hx of tubal ligation Family History Family History Paternal Grandfather No problems noted. Father History of cancer Lung cancer Mother Heart disease Asthma Social History Social History Household Members: Family and Children Housing: House Do you presently have visiting nurse or other home services: No Alcohol intake: former Patient Tobacco Use Status: Former Tobacco user Tobacco use type: Cigarette Years Smoked: 5 years Smoked in Last 30 Days: No Second Hand Smoke Exposure: No Use of substances other than those prescribed or required for medical reasons: No Advance Directives: No Advance Directives Information Provided: No Patient : No service: No Current occupational status: disabled Sexual orientation: Straight/Heterosexual Gender identity: Female Physical Exam ED Vital Signs: Vital Signs - 24 hr 12/22/22 23:35 Temperature 98.9 F Pulse Rate 90 Respiratory Rate 20 Blood Pressure 163/75 H Pulse Oximetry 98 Oxygen Delivery Method Room Air BMI result Body Mass Index 48.5 Const Other: Appearance: Alert. Oriented X3. No acute distress. Eyes: Pupils equal, round and reactive to light. ENT: Pharynx normal. Neck: Normal inspection. Neck supple. No lymph nodes noted. No crepitus CVS: Normal heart rate and rhythm. Pulses normal. Normal S1 and S2 Respiratory: No respiratory distress. Breath sounds normal. No Wheezing. No rales Abdomen: Soft and nontender. No rigidity. No distention. Skin: Skin warm and dry. Normal skin color. Normal skin turgor. Extremities: No lower extremity edema. No Lacerations. No Rash Neuro: Oriented X 3. No motor deficit. No sensory deficit. Moving all extremities. No slurred speech. CN 2 through 12 grossly intact Psych: calm, cooperative, normal affect Medical Decision Making Medical Decision Making MDM Narrative: -patient's physical exam is normal -I discussed with the patient that she experienced a panic attack, not necessa rily an allergic reaction. Either way, per patient's request, we will go ahead and change the antibiotic. -I reviewed patient's inpatient medical records, patient tested positive for MRSA -at this time, patient is asymptomatic, patient did not get any medication prior to arrival other than lorazepam Differential Diagnosis Differential Diagnoses: The differential diagnosis associated with the presentation includes (Anxiety, panic attack, allergic reaction, asthma exacerbation) Discharge Plan Discharge Clinical Impression: Anxiety, Side effect of medication Patient Disposition: Home, Self-Care Instructions: Anxiety (ED) Additional Instructions: Please follow-up with your primary care physician tomorrow. If you have any worsening or new symptoms, please return to the emergency room or call 911 Prescriptions: New sulfamethoxazole-trimethoprim [Bactrim DS] 800-160 mg tablet 1 tab PO BID Qty: 14 0RF No Action cholecalciferol (vitamin D3) 50 mcg (2,000 unit) tablet 50 mcg PO DAILY Qty: 30 6RF sennosides [Natural Senna Laxative] 8.6 mg tablet 8.6 mg PO BEDTIME Qty: 30 3RF Repatha SureClick 140 mg/mL pen injector 140 mg subcut Q2W 90 Days Qty: 7 3RF rosuvastatin 40 mg tablet 40 mg PO DAILY Qty: 90 3RF fenofibrate 54 mg tablet 54 mg PO DAILY Qty: 90 3RF famotidine 40 mg tablet 40 mg PO BEDTIME Qty: 30 3RF amlodipine 10 mg tablet 10 mg PO DAILY Qty: 60 3RF ezetimibe 10 mg tablet 10 mg PO DAILY 90 Days Qty: 90 3RF Anoro Ellipta 62.5-25 mcg/actuation blister with device 1 inh inhalation DAILY Qty: 60 11RF sumatriptan succinate 50 mg tablet 50 mg PO Q2-4H PRN (Reason: migraine headache) Qty: 10 0RF Rx Instructions: do not exceed 4 doses per 24 hrs tramadol 50 mg Tablet 50 mg PO BID PRN (Reason: Pain) albuterol sulfate 90 mcg/actuation HFA aerosol inhaler 1 inh inhalation QID PRN (Reason: shortness of breath or wheezing) Qty: 8.5 0RF albuterol sulfate 2.5 mg /3 mL (0.083 %) solution for nebulization 1 amp inhalation Q4H PRN (Reason: Wheezing) gabapentin 400 mg capsule 400 cap PO BID naloxone 4 mg/actuation spray,non-aerosol 1 spray intranasal ONCE PRN (Reason: Opioid Overdose) Tab-A-Colton Multivitamin w-iron 15 mg iron- 400 mcg tablet 1 tab PO DAILY doxycycline monohydrate 100 mg tablet 100 mg PO BID Qty: 14 0RF lorazepam [Ativan] 2 mg tablet 2 mg PO BEDTIME PRN (Reason: Anxiety) zolpidem [Ambien] 10 mg tablet 5 mg PO BEDTIME PRN (Reason: Anxiety) docusate sodium [Colace] 100 mg capsule 100 mg PO DAILY PRN (Reason: Constipation) (DME) CPAP Machine/Device Device See Rx Instructions .ROUTE .MEDSUPPLY Qty: 1 Rx Instructions: As directed duloxetine 60 mg capsule,delayed release(DR/EC) 60 mg PO DAILY fluticasone propionate 50 mcg/actuation spray,suspension 2 spray intranasal DAILY lisinopril 5 mg tablet 5 mg PO DAILY cetirizine 10 mg tablet 10 mg PO DAILY polyethylene glycol 3350 [Miralax] 17 gram powder in packet 17 g PO DAILY Qty: 30 5RF roflumilast [Daliresp] 250 mcg tablet 250 mcg PO DAILY 30 Days Qty: 30 11RF montelukast [Singulair] 10 mg tablet 10 mg PO BEDTIME 30 Days Qty: 30 11RF Trelegy Ellipta 200-62.5-25 mcg blister with device 1 inh inhalation DAILY 30 Days Qty: 60 12RF ibuprofen 600 mg tablet 600 mg PO Q8H PRN (Reason: pain) 14 Days Qty: 30 0RF
== END 2022-12-23 00:45 | disposition home or self-care (01) ==
PROVIDERS: Emergency Provider Emergency Medicine; PCP Family Medicine
DX: F41.9 Anxiety disorder, unspecified (principal); Z79.899 Other long term (current) drug therapy
CPT/HCPCS: 99283; 99284

== ENCOUNTER 2023-05-03 13:34 | Outpatient (AMB) | payer MEDICAID, SELFPAY ==
[2023-05-03 14:07] VITALS: BP 110/70; PULSE 89; BMI 45.0
--- NOTE | 2023-05-03 14:07 | MHC.OFFVIS ---
Intake Vital Signs 05/03/23 14:07 Height 4 ft 11 in Weight 222 lb 10.67 oz BMI 45.0 BP 110/70 Blood Pressure Location Rt brachial Position Sitting Pulse 89 Intake Visit Reasons: 6 mth f/ up rs Intake Note: 6 month follow up Manager Media Relations Required: Yes Manager Media Relations Language: Head Char Filter Tank Tender Name: Tate [id number] Accompanied by: Family/Other Allergies loratadine [From CLARITIN] Allergy (Mild, Verified 05/03/23 14:10) CHILLS AND DIFF BREATHING Medication List - Last Reconciled 05/03/23 by Ellie Barba NP albuterol sulfate 90 mcg/actuation 1 inh inhalation QID PRN albuterol sulfate 1 amp inhalation Q4H PRN amlodipine 10 mg PO DAILY 90 days cetirizine 10 mg PO DAILY cholecalciferol (vitamin D3) 50 mcg PO DAILY CPAP (CPAP Machine/Device) As directed docusate sodium (Colace) 100 mg PO DAILY PRN doxycycline monohydrate 100 mg PO BID duloxetine 60 mg PO DAILY evolocumab (Repatha SureHarryick) 140 mg subcut Q2W ezetimibe 10 mg PO DAILY 90 days famotidine 40 mg PO BEDTIME fenofibrate 54 mg PO DAILY fluticasone propionate 50 mcg/actuation 2 sprays intranasal DAILY avjkyhfilaz-tkbvcqqlx-foolilve 200-62.5-25 mcg (Trelegy Ellipta) 1 inh inhalation DAILY 30 days gabapentin 400 caps PO BID ibuprofen 600 mg PO Q8H PRN 14 days lisinopril 5 mg PO DAILY lorazepam (Ativan) 2 mg PO BEDTIME PRN montelukast (Singulair) 10 mg PO BEDTIME 30 days multivit-iron sulf-folic acid 15 mg iron- 400 mcg (Tab-A-Colton Multivitamin w-iron) 1 tab PO DAILY naloxone 4 mg/actuation 1 spray intranasal ONCE PRN polyethylene glycol 3350 (Miralax) 17 grams PO DAILY roflumilast (Daliresp) 250 mcg PO DAILY 30 days rosuvastatin 40 mg PO DAILY sennosides (Natural Senna Laxative) 8.6 mg PO BEDTIME sulfamethoxazole-trimethoprim 800-160 mg (Bactrim DS) 1 tab PO BID sumatriptan succinate 50 mg PO Q2-4H PRN tramadol 50 mg PO BID PRN umeclidinium-vilanterol 62.5-25 mcg/actuation (Anoro Ellipta) 1 inh inhalation DAILY zolpidem (Ambien) 5 mg PO BEDTIME PRN HPI HPI Comments History of Present Illness Details 52-year-old female presents for a follow-up on her palpitations. She reports she has only had one episode about 3 weeks ago but she thinks it is related to a lot of stress and pain she is having from her fibromylagia. She describes it as her heart racing. Since 11/2022 she has lost 18 pounds and she is hoping to continue her weight loss journey with diet, exercise, and seeing the weight loss clinic. She reports good compliance with her medications and having concerns with them. [facility], [facility] Medical History Epigastric pain Pre-op chest exam Chronic restrictive lung disease NAM treated with BiPAP Asthma-COPD overlap syndrome Sleep apnea Fibromyalgia Hypertension Fatty liver Gall bladder polyp Acid reflux Obesity (BMI 30-39.9) Coronary artery disease Hyperlipidemia Surgical History History of partial hysterectomy History of esophagogastroduodenoscopy History of endometrial ablation Hx of tubal ligation History of cardiac cath Family History Paternal Grandfather No problems noted. Father History of cancer Lung cancer Mother Heart disease Asthma Social History Household Members: Family and Children Housing: House Do you presently have visiting nurse or other home services: No Alcohol intake: former Patient Tobacco Use Status: Former Tobacco user Tobacco use type: Cigarette Years Smoked: 5 years Second Hand Smoke Exposure: No service: No Current occupational status: disabled Sexual orientation: Straight/Heterosexual Gender identity: Female Review of Systems Const Denies weakness ENT Denies dizziness Card Denies chest pain, Denies chest pain with activity, Denies syncope, Denies rapid heart rate, Denies pedal edema, Denies edema, Denies leg edema, Denies lightheadedness, Denies palpitations, Denies dyspnea, Denies dyspnea on exertion and Denies orthopnea Resp Denies cough, Denies dyspnea and Denies dyspnea on exertion GI Denies hematochezia and Denies change in stool character Musc Denies abnormal gait, Denies muscle cramps, Denies muscle weakness, Denies numbness, Denies radiating pain into limb and Denies tingling Neuro Denies abnormal gait, Denies dizziness, Denies syncope, Denies numbness, Denies tingling and Denies weakness Endo Denies palpitations Physical Exam Vital Signs: BMI result Body Mass Index 45.0 Const General: healthy appearing and no acute distress Orientation/consciousness: patient oriented x3 HEENT Head: Yes normal to inspection Eyes General: appearance normal, both eyes and all related structures Neck Neck: Yes normal visual inspection Chest Chest palpation & inspection: normal inspection of the chest Resp Effort & Inspection: normal respiratory effort Auscultation: clear to auscultation bilaterally Cardio Jugular venous distension: no JVD Palpation: normal PMI Rate: regular rate Rhythm: regular rhythm Heart sounds: S1 normal heart sound present, S2 normal heart sound present, no click, no gallops, no murmurs and no rubs GI Inspection: Yes normal to inspection Palpation (GI): Soft to palpation Skin General skin exam: no rashes or lesions noted Neuro General: patient oriented x3 Extrem General: Yes normal to inspection Psych Appearance: grossly normal Assessment & Plan Assessment & Plan (1) Coronary artery disease: Code(s): I25.10 - Atherosclerotic heart disease of [place] coronary artery without angina pectoris (2) Hyperlipidemia: Code(s): E78.5 - Hyperlipidemia, unspecified (3) Morbid obesity: Code(s): E66.01 - Morbid (severe) obesity due to excess calories (4) Hypertension: Code(s): I10 - Essential (primary) hypertension Qualifiers: Hypertension type: essential hypertension Qualified Code(s): I10 - Essential (primary) hypertension Plan Will recheck fasting lipid and BMP. Blood pressure within goal. Continue with a heart healthy diet, exercise, and weight loss. Report any new or worsening symptoms. Continue all medications. Plan to see Dr. Gallegos in 8 months or sooner if needed. Orders: Orders Lipid Panel Today E78.5 - Hyperlipidemia, unspecified, I25.10 - Atherosclerotic heart disease of [place] coronary artery without angina pectoris Basic Metabolic Panel Today E78.5 - Hyperlipidemia, unspecified, I25.10 - Atherosclerotic heart disease of [place] coronary artery without angina pectoris Medications: Refilled evolocumab (Repatha SureClick) 140 mg subcut Q2W 2 mL 11RF Coding Level of Care Code Est Pt Level 4 (31832) Diagnoses Coronary artery disease I25.10 Hyperlipidemia E78.5 Morbid obesity E66.01 Hypertension I10 Hypertension type: essential hypertension
== END 2023-05-03 14:36 | disposition home or self-care (01) ==
PROVIDERS: PCP Family Medicine; Referring Provider Family Medicine; Visit Provider Nurse Practitioner
DX: I25.10 Atherosclerotic heart disease of native coronary artery without angina pectoris (principal); E78.5 Hyperlipidemia, unspecified; E66.01 Morbid (severe) obesity due to excess calories; I10 Essential (primary) hypertension
CPT/HCPCS: 99214

== ENCOUNTER → 2023-05-03 13:34 | Outpatient (BNVA) | payer MEDICAID, SELFPAY | PROVIDERS: PCP Family Medicine; Referring Provider Family Medicine; Visit Provider Nurse Practitioner | DX: I25.10 Atherosclerotic heart disease of native coronary artery without angina pectoris (principal); E78.5 Hyperlipidemia, unspecified; E66.01 Morbid (severe) obesity due to excess calories; I10 Essential (primary) hypertension; Z68.42 Body mass index [BMI] 45.0-49.9, adult | CPT/HCPCS: 99212 ==

== ENCOUNTER 2023-05-04 12:58 | Outpatient (REF) | payer MEDICAID, SELFPAY ==
[2023-05-04 14:06] LABS: Anion Gap 11 (12-20); Blood Urea Nitrogen 11 mg/dL (9-16); Calcium 9.8 mg/dL (8.4-10.2); Carbon Dioxide 25 mmol/L (22-29); Chloride 108 mmol/L (96-108); Cholesterol 169 mg/dL (<200); Estimated Glomerular Filt Rate > 60; Glucose Random 108 mg/dL (60-115); HDL Cholesterol 40 mg/dL (>40); LDL Cholesterol Calculated 73 mg/dL (<100); Potassium 4.2 mmol/L (3.3-5.1); Sodium 140 mmol/L (135-145); Triglycerides 281 mg/dL (<150)
== END 2023-05-04 12:59 | disposition home or self-care (01) ==
LOC: HO.MAMMO 12:58
PROVIDERS: Absent Provider Nurse Practitioner; PCP Family Medicine; Visit Provider Family Medicine
DX: E78.5 Hyperlipidemia, unspecified (principal); I25.10 Atherosclerotic heart disease of native coronary artery without angina pectoris; Z12.31 Encounter for screening mammogram for malignant neoplasm of breast
CPT/HCPCS: 36415; 77063; 77067; 80048; 80061

== ENCOUNTER → 2023-05-04 13:45 | Outpatient (BNV) | payer MEDICAID, SELFPAY | PROVIDERS: Absent Provider Nurse Practitioner; PCP Family Medicine; Visit Provider Radiology Diagnostic Radiology | DX: Z12.31 Encounter for screening mammogram for malignant neoplasm of breast (principal) | CPT/HCPCS: 77063; 77067 ==

== ENCOUNTER 2023-06-15 15:05 | Outpatient (REF) | payer MEDICAID, SELFPAY ==
--- NOTE | ~2023-06-15 | US_ITS ---
EXAMINATION: US VENOUS WITH DOPPLER UPPER EXTREMITY, left upper extremity CLINICAL INFORMATION: Left upper extremity pain COMPARISON: Left upper extremity duplex 11/19/2021 TECHNIQUE: Ultrasound of the upper extremity is performed using compression sonography and color and pulse Doppler flow with assessment of augmentation of flow. There is also imaging and Doppler assessment of the jugular and subclavian veins. Spectral analysis with color-flow imaging is performed. FINDINGS: Respiratory variation, normal compression, and augmented flow are noted throughout the upper extremity including the axillary, brachial, cubital, and radial and ulnar veins. There is normal flow in the internal jugular and subclavian veins. There is no visible deep or superficial thrombophlebitis. If the patient's symptoms progress, a followup ultrasound in 5 -7 days might be of value to exclude proximal propagation from a nonvisualized distal arm vein. US/US venous duplex UE LT IMPRESSION: No DVT demonstrated in the left upper extremity
== END 2023-06-15 15:06 | disposition home or self-care (01) ==
LOC: HO.US 15:05
PROVIDERS: PCP Family Medicine; Visit Provider Emergency Medicine
DX: M79.632 Pain in left forearm (principal); R60.0 Localized edema
CPT/HCPCS: 93971

== ENCOUNTER 2023-06-23 22:48 | Emergency (ER) | payer MEDICAID, SELFPAY ==
--- NOTE | 2023-06-23 | ECG_ITS ---
Test Reason : SOB/CP Blood Pressure : / mmHG Vent. Rate : 134 BPM Atrial Rate : 134 BPM P-R Int : 140 ms QRS Dur : 070 ms QT Int : 298 ms P-R-T Axes : 061 000 079 degrees QTc Int : 445 ms Sinus tachycardia Inferior infarct , age undetermined Cannot rule out Anterior infarct , age undetermined Abnormal ECG When compared with ECG of 27-OCT-2022 08:55, Vent. rate has increased BY 64 BPM Referred By: Generic ED Physician Electronically Signed By:CORDELL MONTAGUE
--- NOTE | ~2023-06-23 | XR_ITS ---
EXAMINATION: XR CHEST CLINICAL INFORMATION: Chest pain. COMPARISON: None available. TECHNIQUE: Frontal view of the chest was obtained. FINDINGS: No significant abnormality is noted involving the heart, lungs, mediastinum, bony thorax or soft tissues. XR/XR chest 1V IMPRESSION: Unremarkable examination.
[2023-06-23 23:00] VITALS: BP 133/86; PULSE 135; RESP 22; TEMP 39.4; O2SAT 95; BMI 44.9
--- NOTE | 2023-06-23 23:04 | MHC.EDTECH ---
Patient brought into triage area, EKG was done patients HR is 134 creative arts therapist and Darwin QUINONEZ aware. Labs and strep were obtained and sent to lab. Vitals were done and temp is 103.0 cooking chef Darwin made aware
[2023-06-23 23:19] LABS: MANUAL DIFF FLAG NO
[2023-06-23 23:21] LABS: Basophils Percent Auto 0.1 % (0-2); Eosinophils Percent Auto 0.1 % (0-4); Hematocrit 37.1 % (37.0-47.0); Hemoglobin 12.5 g/dl (12.0-16.0); Imm Gran Abs Auto 0.03 X10*3/uL (0.00-0.03); Imm Gran Pct Auto 0.3 % (0.0-0.4); Lymphocytes Absolute Auto 1.4 X10*3/uL (1.2-4.9); Mean Corpuscular HGB Conc 33.7 g/dl (31.0-35.0); Mean Corpuscular Hemoglobin 30.4 pg (27.0-33.0); Mean Corpuscular Volume 90.3 fL (80.0-98.0); Mean Platelet Volume 10.7 fL (9.4-12.3); Monocytes Absolute Auto 0.9 X10*3/uL (0.1-1.2); Monocytes Percent Auto 8.2 % (2-11); Neutrophils Absolute Auto 8.6 x10*3/uL (2.0-8.3); Neutrophils Percent Auto 78.3 % (45-73); Platelet Count 240 X10*3/uL (160-400); Red Blood Count 4.11 X10*6/uL (4.20-5.50); Red Cell Distribution Width 13.6 % (11.0-16.0)
[2023-06-23 23:24] VITALS: BP 133/79; PULSE 129; RESP 22; TEMP 39.6; O2SAT 96
[2023-06-23 23:32] LABS: IDNOW Serial# 08D9AD1C; Strep A Nucleic Acid Negative (Negative)
[2023-06-23 23:42] LABS: Alanine Aminotransferase 20 U/L (0-31); Albumin Level 4.6 g/dL (3.5-5.0); Alkaline Phosphatase 88 U/L (39-117); Anion Gap 15 (12-20); Aspartate Amino Transferase 20 U/L (5-31); Bilirubin Total 0.3 mg/dL (0.0-1.0); Blood Urea Nitrogen 9 mg/dL (9-16); Calcium 9.6 mg/dL (8.4-10.2); Carbon Dioxide 21 mmol/L (22-29); Chloride 108 mmol/L (96-108); Creatinine Clr Calc Pharmacy 84.3; Estimated Glomerular Filt Rate > 60; Glucose Random 107 mg/dL (60-115); Potassium 3.8 mmol/L (3.3-5.1); Sodium 140 mmol/L (135-145); Total Protein 7.8 g/dL (6.5-8.0)
[2023-06-23 23:43] VITALS: PULSE 128
--- NOTE | 2023-06-23 23:55 | ED.CHESTPAIN ---
HPI - Chest Pain General Chief Complaint: Chest Pain Stated Complaint: SOB, Chest pain Time Seen by Provider: 06/23/23 23:55 Source: patient, family, RN notes reviewed and civil draftsman (Becky) Limitations: language barrier History of Present Illness HPI narrative: 52-year-old female who has a history of morbid obesity, COPD, asthma, NAM, presents with a 3 day history of headache, body aches, nasal congestion and cough. Patient reports positive sick contacts at home. She has tried Tylenol and ibuprofen with minimal relief. She has had decreased p.o. intake. She has had nausea but no vomiting. No diarrhea. She denies any vision changes. She does report palpitations. Related Data Home Medications Medication Instructions Recorded Confirmed docusate sodium 100 mg capsule 100 mg PO DAILY PRN Constipation 03/26/20 12/20/22 (Colace) lorazepam 2 mg tablet (Ativan) 2 mg PO BEDTIME PRN Anxiety 03/26/20 12/20/22 zolpidem 10 mg tablet (Ambien) 5 mg PO BEDTIME PRN Anxiety 03/26/20 12/20/22 tramadol 50 mg tablet 50 mg PO BID PRN Pain 05/20/20 12/20/22 CPAP (CPAP Machine/Device) #1 ea 12/24/20 07/13/22 cetirizine 10 mg tablet 10 mg PO DAILY 07/19/21 12/20/22 duloxetine 60 mg capsule,delayed 60 mg PO DAILY 07/19/21 12/20/22 release fluticasone propionate 50 2 spray intranasal DAILY 07/19/21 12/20/22 mcg/actuation nasal spray,suspension lisinopril 5 mg tablet 5 mg PO DAILY 07/19/21 07/13/22 albuterol sulfate 2.5 mg/3 mL 1 amp inhalation Q4H PRN Wheezing 01/17/22 12/20/22 (0.083 %) solution for nebulization gabapentin 400 mg capsule 400 cap PO BID 01/17/22 12/20/22 multivitamin-iron sulfate 15 1 tab PO DAILY 01/17/22 12/20/22 mg-folic acid 400 mcg tablet (Tab-A-Colton Multivitamin w-iron) naloxone 4 mg/actuation nasal spray 1 spray intranasal ONCE PRN Opioid 01/17/22 12/20/22 Overdose Previous Rx's Medication Instructions Recorded sumatriptan succinate 50 mg tablet 50 mg PO Q2-4H PRN migraine 11/05/20 headache #10 tabs albuterol sulfate 90 mcg/actuation 1 inh inhalation QID PRN shortness 12/28/20 aerosol inhaler of breath or wheezing #8.5 grams polyethylene glycol 3350 17 gram 17 g PO DAILY #30 ea 07/19/21 oral powder packet (Miralax) cholecalciferol (vitamin D3) 50 50 mcg PO DAILY #30 tabs 07/26/21 mcg (2,000 unit) tablet sennosides 8.6 mg tablet (Natural 8.6 mg PO BEDTIME constipation #30 11/17/21 Senna Laxative) tabs fluticasone fur. 200 mcg-umeclid 1 inh inhalation DAILY 30 days #60 11/19/21 62.5 mcg-vilant 25 mcg ea inhalat.powder (Trelegy Ellipta) ibuprofen 600 mg tablet 600 mg PO Q8H PRN pain 14 days #30 01/17/22 tabs fenofibrate 54 mg tablet 54 mg PO DAILY #90 tabs 05/23/22 rosuvastatin 40 mg tablet 40 mg PO DAILY #90 tabs 05/23/22 famotidine 40 mg tablet 40 mg PO BEDTIME #30 tabs 05/27/22 montelukast 10 mg tablet 10 mg PO BEDTIME 30 days #30 tabs 07/15/22 (Singulair) ezetimibe 10 mg tablet 10 mg PO DAILY 90 days #90 tabs 09/16/22 umeclidinium 62.5 mcg-vilanterol 1 inh inhalation DAILY #60 ea 11/24/22 25 mcg/actuation powdr for inhalation (Anoro Ellipta) doxycycline monohydrate 100 mg 100 mg PO BID #14 tabs 12/22/22 tablet sulfamethoxazole 800 1 tab PO BID #14 tabs 12/23/22 mg-trimethoprim 160 mg tablet (Bactrim DS) amlodipine 10 mg tablet 10 mg PO DAILY 90 days #90 tabs 01/16/23 roflumilast 250 mcg tablet 250 mcg PO DAILY 30 days #30 tabs 01/16/23 (Daliresp) evolocumab 140 mg/mL subcutaneous 140 mg subcut Q2W #2 mL 05/03/23 pen injector (Repatha SureClick) acetaminophen 500 mg tablet 500 mg PO Q6H PRN fever or pain 06/24/23 #14 tabs ibuprofen 600 mg tablet 600 mg PO Q8H PRN fever or pain 06/24/23 #14 tabs prednisone 50 mg tablet 50 mg PO DAILY #5 tabs 06/24/23 Allergies Allergy/AdvReac Type Severity Reaction Status Date / Time loratadine [From CLARITIN] Allergy Mild CHILLS AND Verified 05/03/23 14:10 DIFF BREATHING Review of Systems Constitutional: Constitutional: Reports fever(s), Reports headache(s) and Reports weakness Eyes: Eyes: Denies change in vision and Denies other (No redness.) ENT: Reports headache(s), Reports nasal congestion, Denies nasal discharge, Denies neck pain and Denies sore throat Cardiovascular: Cardiovascular: Reports chest pain, Reports palpitations, Denies dyspnea, Denies dyspnea on exertion and Denies orthopnea Respiratory: Respiratory: Reports cough, Denies dyspnea and Denies dyspnea on exertion Gastrointestinal: Gastrointestinal: Denies abdominal pain, Denies melena, Denies hematochezia, Denies diarrhea, Denies nausea and Denies vomiting Genitourinary: Genitourinary: Denies dysuria and Denies urinary urgency Musculoskeletal: Musculoskeletal: Denies back pain, Denies muscle weakness, Denies neck pain and Denies numbness Integumentary/Breasts: Skin/Breast: Denies rash Neurologic: Reports headache(s), Denies focal weakness, Denies numbness and Reports weakness Psychiatric: Psychiatric: Denies depression Endocrine: Endocrine: Reports palpitations PMFSH Past Medical History Medical History Epigastric pain Pre-op chest exam Chronic restrictive lung disease NAM treated with BiPAP Asthma-COPD overlap syndrome Sleep apnea Fibromyalgia Hypertension Fatty liver Gall bladder polyp Acid reflux Obesity (BMI 30-39.9) Coronary artery disease Hyperlipidemia Surgical History History of partial hysterectomy History of esophagogastroduodenoscopy History of endometrial ablation Hx of tubal ligation History of cardiac cath Family History Family History Paternal Grandfather No problems noted. Father History of cancer Lung cancer Mother Heart disease Asthma Social History Social History Household Members: Family and Children Housing: House Do you presently have visiting nurse or other home services: No Alcohol intake: never Patient Tobacco Use Status: Former Tobacco user Tobacco use type: Cigarette Years Smoked: 5 years Smoked in Last 30 Days: No Second Hand Smoke Exposure: No Use of substances other than those prescribed or required for medical reasons: No Advance Directives: No Advance Directives Information Provided: Yes service: No Current occupational status: disabled Sexual orientation: Straight/Heterosexual Gender identity: Female Physical Exam Vital Signs: Vital Signs: Last Vital Signs Temp 99.4 F 06/24/23 02:11 Pulse 114 H 06/24/23 02:11 Resp 21 H 06/24/23 02:11 BP 125/62 06/24/23 02:11 Pulse Ox 96 06/24/23 02:11 O2 Del Method Room Air 06/24/23 02:11 BMI result Body Mass Index 44.9 Const: General: alert and awake Nutritional Appearance: obese Orientation/consciousness: patient oriented x3 Limitations: language barrier HEENT: Other: Oropharynx is moist. Auditory canals are patent with pearly TM. Mild nasal congestion. Small amount of clear nasal discharge. Neck: Other: No Brudzinski Resp: Auscultation: clear to auscultation bilaterally Cardio: Rate: tachycardic Rhythm: regular rhythm GI: Other: Abdomen is obese, soft and nontender throughout. No peritoneal signs. Neuro: General: patient oriented x3 Course Reevaluation(s) Reevaluation #1: Initial viral swabs were invalid and therefore had to be redrawn. Swabs are pending at this time. Patient difficult IV stick, successful ultrasound guided IV by nursing. IV fluids going at this time. Patient signed out with reassessment pending as well as viral swabs to Dr. Wick. Time: 01:57 Medications Administered Discontinued Medications Generic Name Dose Route Start Last Admin Trade Name Freq PRN Reason Stop Dose Admin Acetaminophen 975 mg 06/24/23 00:01 06/24/23 00:07 Acetaminophen 325 Mg Tablet PO 06/24/23 00:02 975 mg ONCE ONE Administration Sodium Chloride 1,000 mls @ 999 mls/hr 06/24/23 00:30 06/24/23 02:15 Ns IV 06/24/23 01:30 999 mls/hr .Q1H1M BABAR Administration Ketorolac Tromethamine 30 mg 06/24/23 00:18 06/24/23 02:15 Ketorolac Tromethamine 30 Mg/Ml Vial IVPUSH 06/24/23 00:19 30 mg ONCE ONE Administration Medical Decision Making Medical Decision Making [facility] Narrative: 52-year-old female with history of NAM, hypertension, COPD and asthma presents with headache, fever, nasal congestion and cough for the past 3 days. Concern for possible sepsis given that patient is febrile, tachycardic with a mild leukocytosis. However no obvious source at this time, negative chest x-ray. UA is pending as well as viral swabs. Suspect possible viral source. Abdominal exam is reassuring. Low suspicion for UTI as well as meningitis. IV fluid, analgesia. -I received sign-out from my colleague CHRISTIE Brower. Patient tested positive for COVID. Patient's oxygen saturations steady 94%, no oxygen desaturations, no wheezing. -patient will be discharged home. Patient agrees with plan Differential Diagnosis Differential Diagnoses: The differential diagnosis associated with the presentation includes Sepsis Viral syndrome Pneumonia UTI Dehydration Metabolic abnormality Meningitis Admission/Observation Consideration of admission/observation: Escalation of care including admission/observation considered Lab Data [facility] Lab Attestation statement: I reviewed the patient's lab results. 06/23/23 23:03 06/23/23 23:03 Labs: Lab Results 06/23/23 06/24/23 06/24/23 Range/Units 23:03 01:14 01:18 WBC 11.0 H (4.8-10.8) X10*3/uL RBC 4.11 L (4.20-5.50) X10*6/uL Hgb 12.5 (12.0-16.0) g/dl Hct 37.1 (37.0-47.0) % MCV 90.3 (80.0-98.0) fL MCH 30.4 (27.0-33.0) pg MCHC 33.7 (31.0-35.0) g/dl RDW 13.6 (11.0-16.0) % Plt Count 240 (160-400) X10*3/uL MPV 10.7 (9.4-12.3) fL Immature Gran % (Auto) 0.3 (0.0-0.4) % Neut % (Auto) 78.3 H (45-73) % Lymph % (Auto) 13.0 L (20-40) % Vilas % (Auto) 8.2 (2-11) % Eos % (Auto) 0.1 (0-4) % Baso % (Auto) 0.1 (0-2) % Lymph # (Auto) 1.4 (1.2-4.9) X10*3/uL Vil[place] # (Auto) 0.9 (0.1-1.2) X10*3/uL Eos # (Auto) 0.0 (0.0-0.4) X10*3/uL Baso # (Auto) 0.0 (0.0-0.2) X10*3/uL Abs Immat Gran (auto) 0.03 (0.00-0.03) X10*3/uL Absolute Neuts (auto) 8.6 H (2.0-8.3) x10*3/uL Absolute Nucleated RBC 0.000 (0.0-0.012) X10*3/uL Nucleated RBC % (auto) 0.0 (0.0-0.2) /100WBC Sodium 140 (135-145) mmol/L Potassium 3.8 (3.3-5.1) mmol/L Chloride 108 (96-108) mmol/L Carbon Dioxide 21 L (22-29) mmol/L Anion Gap 15 (12-20) BUN 9 (9-16) mg/dL Creatinine 0.86 (0.5-1.4) mg/dL Estim Creat Clear Calc 84.3 Estimated GFR > 60 Random Glucose 107 (60-115) mg/dL Calcium 9.6 (8.4-10.2) mg/dL Total Bilirubin 0.3 (0.0-1.0) mg/dL AST 20 (5-31) U/L ALT 20 (0-31) U/L Alkaline Phosphatase 88 (39-117) U/L Troponin I High Sens < 2.7 (<3.5-17.0) ng/L Total Protein 7.8 (6.5-8.0) g/dL Albumin 4.6 (3.5-5.0) g/dL Urine Color Yellow Urine Appearance Clear Urine pH 6.0 (5.0-9.0) Ur Specific Cora 1.020 (1.005-1.025) Urine Protein Negative (Neg-Trace) mg/dL Urine Glucose (UA) Negative (Negative) mg/dL Urine Ketones Trace (Negative) mg/dL Urine Blood Negative (Negative) Urine Nitrite Negative (Negative) Ur Leukocyte Esterase Negative (Negative) Influenza Type A (PCR) Invalid NEGATIVE (Negative) Influenza Type B (PCR) Invalid NEGATIVE (Negative) RSV RNA Qual (PCR) Invalid NEGATIVE (Negative) SARS-CoV-2 RNA (RT-PCR) Invalid POSITIVE A (Negative) S. pyogenes GrpA MIRIAM Negative (Negative) Radiology Impression Discussion of test interpretation with radiology: I have reviewed the radiologist's reading. Radiologist Impression: [address] [address] XRay Report Signed Patient: Ximena Xiong MR#: [id number] : 1970 Acct:[id number] Age/Sex: 52 / F ADM Date: 06/23/23 [facility]: Ordering Physician: Generic ED Physician Date of Service: 06/23/23 Procedure(s): XR chest 1V Accession Number(s): [id number] cc: [facility] ED Physician; [facility] EXAMINATION: XR CHEST CLINICAL INFORMATION: Chest pain. COMPARISON: None available. TECHNIQUE: Frontal view of the chest was obtained. FINDINGS: No significant abnormality is noted involving the heart, lungs, mediastinum, bony thorax or soft tissues. XR/XR chest 1V IMPRESSION: Unremarkable examination. Dictated By: Tesfaye Christian Signed By: <Electronically signed by Tesfaye Christian in OV> 06/23/232347 DD/ 17 TD/TT: Motel Clerk: Independent Historian Clinical information obtained from an independent historian. History obtained from or confirmed by: Spouse Discharge Plan Discharge Clinical Impression: COVID-19 Patient Disposition: Home, Self-Care Instructions: COVID-19 (Coronavirus Disease 2019) (ED) Additional Instructions: Please follow-up with your primary care physician tomorrow. If you have any worsening or new symptoms, please return to the emergency room or call 911 Prescriptions: New prednisone 50 mg tablet 50 mg PO DAILY Qty: 5 0RF acetaminophen 500 mg tablet 500 mg PO Q6H PRN (Reason: fever or pain) Qty: 14 0RF ibuprofen 600 mg tablet 600 mg PO Q8H PRN (Reason: fever or pain) Qty: 14 0RF No Action cholecalciferol (vitamin D3) 50 mcg (2,000 unit) tablet 50 mcg PO DAILY Qty: 30 6RF sennosides [Natural Senna Laxative] 8.6 mg tablet 8.6 mg PO BEDTIME Qty: 30 3RF rosuvastatin 40 mg tablet 40 mg PO DAILY Qty: 90 3RF fenofibrate 54 mg tablet 54 mg PO DAILY Qty: 90 3RF famotidine 40 mg tablet 40 mg PO BEDTIME Qty: 30 3RF ezetimibe 10 mg tablet 10 mg PO DAILY 90 Days Qty: 90 3RF Anoro Ellipta 62.5-25 mcg/actuation blister with device 1 inh inhalation DAILY Qty: 60 11RF roflumilast [Daliresp] 250 mcg tablet 250 mcg PO DAILY 30 Days Qty: 30 11RF amlodipine 10 mg tablet 10 mg PO DAILY 90 Days Qty: 90 3RF sumatriptan succinate 50 mg tablet 50 mg PO Q2-4H PRN (Reason: migraine headache) Qty: 10 0RF Rx Instructions: do not exceed 4 doses per 24 hrs tramadol 50 mg Tablet 50 mg PO BID PRN (Reason: Pain) albuterol sulfate 90 mcg/actuation HFA aerosol inhaler 1 inh inhalation QID PRN (Reason: shortness of breath or wheezing) Qty: 8.5 0RF albuterol sulfate 2.5 mg /3 mL (0.083 %) solution for nebulization 1 amp inhalation Q4H PRN (Reason: Wheezing) gabapentin 400 mg capsule 400 cap PO BID naloxone 4 mg/actuation spray,non-aerosol 1 spray intranasal ONCE PRN (Reason: Opioid Overdose) Tab-A-Colton Multivitamin w-iron 15 mg iron- 400 mcg tablet 1 tab PO DAILY sulfamethoxazole-trimethoprim [Bactrim DS] 800-160 mg tablet 1 tab PO BID Qty: 14 0RF doxycycline monohydrate 100 mg tablet 100 mg PO BID Qty: 14 0RF lorazepam [Ativan] 2 mg tablet 2 mg PO BEDTIME PRN (Reason: Anxiety) zolpidem [Ambien] 10 mg tablet 5 mg PO BEDTIME PRN (Reason: Anxiety) docusate sodium [Colace] 100 mg capsule 100 mg PO DAILY PRN (Reason: Constipation) (DME) CPAP Machine/Device Device See Rx Instructions .ROUTE .MEDSUPPLY Qty: 1 Rx Instructions: As directed duloxetine 60 mg capsule,delayed release(DR/EC) 60 mg PO DAILY fluticasone propionate 50 mcg/actuation spray,suspension 2 spray intranasal DAILY lisinopril 5 mg tablet 5 mg PO DAILY cetirizine 10 mg tablet 10 mg PO DAILY polyethylene glycol 3350 [Miralax] 17 gram powder in packet 17 g PO DAILY Qty: 30 5RF montelukast [Singulair] 10 mg tablet 10 mg PO BEDTIME 30 Days Qty: 30 11RF Trelegy Ellipta 200-62.5-25 mcg blister with device 1 inh inhalation DAILY 30 Days Qty: 60 12RF ibuprofen 600 mg tablet 600 mg PO Q8H PRN (Reason: pain) 14 Days Qty: 30 0RF Repatha SureClick 140 mg/mL pen injector 140 mg subcut Q2W Qty: 2 11RF
[2023-06-23 23:56] LABS: Troponin-I High Sensitivity < 2.7 ng/L (<3.5-17.0)
[2023-06-24] MEDS: Acetaminophen 325 MG TABLET 975 MG PO (00:07)
[2023-06-24 01:09] LABS: Influenza A PCR Invalid (Negative); Influenza B PCR Invalid (Negative); Resp Syncy Virus RNA Qual PCR Invalid (Negative); SARS COV2 PCR INHOUSE Invalid (Negative)
[2023-06-24 01:20] LABS: Appearance Urine Clear; Color Urine Yellow; Glucose Urine UA Negative (Negative); Leukocyte Esterase Urine Negative (Negative); Nitrite Urine Negative (Negative); Urine Blood Negative (Negative); Urine Ketones Trace mg/dL (Negative); Urine Protein Negative (Neg-Trace)
--- NOTE | 2023-06-24 01:33 | PC.NURSE ---
IV medications delayed d/t unable to get IV access. This RN attempted 3 times unsuccessfully, supercharger repair supervisor attempted 2X's unsuccessfully. Requested RN Darwin, to attempt and possible ultrasound guided necessary.
[2023-06-24 02:03] LABS: Influenza A PCR NEGATIVE (Negative); Influenza B PCR NEGATIVE (Negative); Resp Syncy Virus RNA Qual PCR NEGATIVE (Negative); SARS COV2 PCR INHOUSE POSITIVE (Negative)
[2023-06-24 02:11] VITALS: BP 125/62; PULSE 114; RESP 21; TEMP 37.4; O2SAT 96
[2023-06-24] MEDS: Ketorolac Tromethamine 30 MG/ML VIAL IVPUSH (02:15)
[2023-06-24] MEDS: 0.9 % Sodium Chloride 1,000 ML 999 ML IV (02:15)
[2023-06-24 04:40] VITALS: BP 123/67; PULSE 107; RESP 14; TEMP 37.6; O2SAT 94
== END 2023-06-24 05:30 | disposition home or self-care (01) ==
PROVIDERS: Physician Assistant; Emergency Provider Emergency Medicine
DX: U07.1 COVID-19 (principal); R07.9 Chest pain, unspecified; R06.02 Shortness of breath; J44.1 Chronic obstructive pulmonary disease with (acute) exacerbation; R51.9 Headache, unspecified; R09.81 Nasal congestion; I10 Essential (primary) hypertension; I25.10 Atherosclerotic heart disease of native coronary artery without angina pectoris; Z79.899 Other long term (current) drug therapy; Z20.828 Contact with and (suspected) exposure to other viral communicable diseases
CPT/HCPCS: 0241U; 71045; 80053; 81003; 84484; 85025; 87651; 93005; 96374; 99284; 99285; J1885

== ENCOUNTER → 2023-06-23 22:51 | Outpatient (BNV) | payer MEDICAID, SELFPAY | PROVIDERS: Emergency Provider Emergency Medicine; Visit Provider Internal Medicine | DX: R06.02 Shortness of breath (principal) | CPT/HCPCS: 93010 ==

== ENCOUNTER 2023-07-18 14:32 | Outpatient (AMB) | payer MEDICAID, SELFPAY ==
--- NOTE | 2023-07-18 14:52 | A.OFFVIS_ITS ---
Intake Vital Signs 07/18/23 14:53 Height 5 ft Weight 224 lb 13.944 oz BMI 43.9 Pulse 89 Pulse Source Pulse Oximeter Pulse Oximetry (%) 97 Oxygen Delivery Method Room Air Intake Visit Reasons: asthma/nam Internal Recruiter Required: No Allergies loratadine [From CLARITIN] Allergy (Mild, Verified 07/18/23 14:54) CHILLS AND DIFF BREATHING HPI HPI Comments History of Present Illness Details The patient is a 52 [id number] woman with a known history of asthma in addition to obstructive sleep apnea. Patient was having significant daytime drowsiness And in 2015 she did undergo a sleep study demonstrating severe sleep apnea. She return for titration study documented that she required BiPAP . The patient was set up through [facility]. She was getting supplies regularly. She has been using her BiPAP ever since with very good adherence. She uses a BiPAP more than 4 hours a night. at some point she is soft receiving supplies. She is not sure why does been the issue. She does have a nasal mask. She wonders if she do better with a fullface mask. I did have an F 30 available for trial. Therefore she will try the fullface mask and I will request supplies from her [employer] company. In the meantime the patient has been taking multiple inhalers for significant asthma. It appears that the inhalers have been helpful but she Continues to be symptomatic. Therefore will optimize her respiratory therapy and also simplify by switching her over to Trelegy 200. 08/12/2021 the patient is here for a pulm onary follow-up visit. She is complaining of worsening cough and chest congestion. She has been like this for about 3-4 days. She was tested negative for COVID-19 apparently. She continues use the Flovent. The Trelegy inhaler was not covered. Therefore, will add a long-acting beta at agonist and long-acting muscarinic antagonists combination inhaler to her regimen. Hopefully this will help her with her chest tightness. In the meantime will treated for bronchitis with Z-Jan. If the patient is not better or if she worsens then she can consider starting the prednisone taper. In the meantime she has not been using her PAP therapy. She states the pressures are now too high and she cannot tolerated well. Therefore I did ask her to bring machine into for the next visit so we can adjust the pressures. Patient is now being evaluated for her surgery that she has for the growth on her ovary. This is going to happen at [facility] am hopeful she can have this do ne soon. 11/19/2021 the patient is here for pulmonary follow-up visit. Her breathing has been about the same. She could not tolerate the Bevespi secondary to tachycardia. Therefore switch over to Trelegy. Hopefully she can tolerate that better. In the meantime she is using her BiPAP. However, feels like the pressures are too high and is hard for her to tolerated. Therefore I did decrease the pressure from 18/14 to 15/12. I am hopeful that she can tolerate this better. Will continue to titrated down accordingly as long as her apnea score stay within normal. Her AHI was below 2 which is reassuring. In addition to that the patient is complaining multiple ailments. She is complaining the lower left extremity is swollen and painful. I did look at it and it looked like her veins were distended and was concern for a DVT. Therefore will have her undergo a Doppler study to rule out DVT. 01/19/2022 the patient is here for a preop evaluation. Overall the patient has been feeling well from a respiratory status. She continues use her respiratory medications she size she uses BiPAP also with good compliance. The BiPAP therapy continues to be affecting beneficial. She has not had any issues with wheezing or shortness of breath requiring additional medications. She did have a swelling of her upper extremity where we had requested an ultrasound ruled out DVT. however the area still affected with likely has some superficial phlebitis. The patient is scheduled to undergo gynecological surgery. This point she optimize pulmonary standpoint to proceed with surgery and anesthesia. 07/15/2022 the patient is here for a pulmonary follow-up visit. Overall the patient is doing well. She does complaint of productive cough. The cough seems to be chronic for her. She has always bringing up phlegm. It is hard for her to do so. She does continue to use the Trelegy with partial improvement of her symptoms. She is looking to see if any other medicines can provided in order to help with chronic bronchitis. In the meantime she did bring her BiPAP. The BiPAP still set at 15/12. She is tolerating it well and her AHI is to. She the patient is using it well more than 4 hours a night. The therapy has been affecting beneficial when she is going to continue with current settings. She has been getting supplies through her [employer]. The patient will go ahead a nd start Daliresp for her chronic bronchitis. I will also give her short course of azithromycin in case she has any infectious process as well. 07/18/2023 the patient is here for a pulm onary follow-up visit. She has not recovered from COVID-19. She had a couple weeks ago. She did not take Paxlovid. She did develop worsening respiratory complaints. The patient also has been complaining of a persistent cough productive in nature with yellow sputum. Moderate severity. Also has been complaining of left-sided flank discomfort. But typically a little lower than her flank. No pleuritic c omponent to her pain. The patient has been using her BiPAP. The BiPAP therapy continues to be affecting beneficial she does use it every night for more than 4 hours. We also talked about the Daliresp. It has not clear if she is taking it for the chronic bronchitis. She is going to assess her medications at home. As far as her current respiratory complaints the patient likely has a postviral bacterial bronchitis lower respiratory infection so therefore will start her on doxycycline. If the patient is no better she will come in for chest x-ray and call the office. [facility] Medical History Epigastric pain Pre-op chest exam Chronic restrictive lung disease NAM treated with BiPAP Asthma-COPD overlap syndrome Sleep apnea Fibromyalgia Hypertension Fatty liver Gall bladder polyp Acid reflux Obesity (BMI 30-39.9) Coronary artery disease Hyperlipidemia Surgical History History of partial hysterectomy History of esophagogastroduodenoscopy History of endometrial ablation Hx of tubal ligation History of cardiac cath Family History Paternal Grandfather No problems noted. Father History of cancer Lung cancer Mother Heart disease Asthma Social History Household Members: Family and Children Housing: House Do you presently have visiting nurse or other home services: No Alcohol intake: never Patient Tobacco Use Status: Former Tobacco user Tobacco use type: Cigarette Years Smoked: 5 years Second Hand Smoke Exposure: No service: No Current occupational status: disabled Sexual orientation: Straight/Heterosexual Gender identity: Female Review of Systems Const Denies weight gain and Denies weight loss ENT Reports no additional complaints, Denies dysphagia and Denies odynophagia Card Reports no additional complaints Resp Reports change in phlegm color, Reports chest congestion and Reports cough GI Denies belching, Denies melena, Reports bloating, Denies dysphagia, Denies excessive flatus, Denies dyspepsia, Denies heartburn, Denies diarrhea, Denies loose stools, Denies nausea, Denies odynophagia and Denies vomiting Reports no additional complaints Musc Reports no additional complaints and Reports myalgias Skin/Breast Denies rash Neuro Reports no additional complaints Psych Reports no additional complaints Endo Reports no additional complaints Physical Exam Vital Signs: Last Vital Signs Pulse 89 07/18/23 14:53 Pulse Ox 97 07/18/23 14:53 Oxygen Delivery Method Room Air 07/18/23 14:53 BMI result Body Mass Index 43.9 Const General: alert Neck Neck: Yes normal visual inspection, Yes full ROM and Yes no lymphadenopathy Chest Chest palpation & inspection: normal inspection of the chest Resp Effort & Inspection: normal respiratory effort Auscultation: no crackles, no rales, no rhonchi, no wheezes and diminished lung sounds Cardio Rate: regular rate Rhythm: regular rhythm Heart sounds: S1 normal heart sound present and S2 normal heart sound present GI Palpation (GI): Soft to palpation and nontender Auscultation: normal bowel sounds Skin General skin exam: rashes and/or lesions noted Assessment & Plan Assessment & Plan (1) Asthma-COPD overlap syndrome: Code(s): J44.9 - Chronic obstructive pulmonary disease, unspecified (2) NAM treated with BiPAP: Code(s): G47.33 - Obstructive sleep apnea (adult) (pediatric) (3) Chronic restrictive lung disease: Code(s): J98.4 - Other disorders of lung (4) Bronchitis: Code(s): J40 - Bronchitis, not specified as acute or chronic Plan Continue BIPAP 09/06 continue Trelegy continue singulair LAURE as needed start Doxycycline CXR Follow-up in 4-6 months Orders: Orders XR chest 2V Today J44.9 - Chronic obstructive pulmonary disease, unspecified Medications: New doxycycline monohydrate 100 mg PO BID 28 tabs 0RF 14 days Coding Level of Care Code Est Pt Level 4 (57276) Diagnoses Asthma-COPD overlap syndrome J44.9 NAM treated with BiPAP G47.33 Chronic restrictive lung disease J98.4 Bronchitis J40 Time Spent (min) 17
[2023-07-18 14:53] VITALS: PULSE 89; O2SAT 97; BMI 43.9
== END 2023-07-18 15:25 | disposition home or self-care (01) ==
PROVIDERS: PCP Family Medicine; Referring Provider Family Medicine; Visit Provider Hospitalist
DX: J44.9 Chronic obstructive pulmonary disease, unspecified (principal); G47.33 Obstructive sleep apnea (adult) (pediatric); J98.4 Other disorders of lung; J40 Bronchitis, not specified as acute or chronic
CPT/HCPCS: 99214

== ENCOUNTER → 2023-07-18 14:32 | Outpatient (BNVA) | payer MEDICAID, SELFPAY | PROVIDERS: PCP Family Medicine; Visit Provider Hospitalist | DX: J44.9 Chronic obstructive pulmonary disease, unspecified (principal); J98.4 Other disorders of lung; J40 Bronchitis, not specified as acute or chronic; G47.33 Obstructive sleep apnea (adult) (pediatric); Z79.899 Other long term (current) drug therapy | CPT/HCPCS: 99212 ==

== ENCOUNTER 2023-07-31 13:23 | Outpatient (AMB) | payer MEDICAID, SELFPAY ==
[2023-07-31 13:29] VITALS: BP 120/74; BMI 43.9
--- NOTE | 2023-07-31 13:29 | MHC.OFFVIS ---
Intake Vital Signs 07/31/23 13:29 Height 5 ft Weight 224 lb 13.944 oz BMI 43.9 BP 120/74 Intake Visit Reasons: Annual Research Affiliate Required: Yes Research Affiliate Language: Protective Signal Installer Helper Name: Alayna LEE Information Interpreted: non-clinical & clinical Licensed Occupational Therapy Assistant: Licensed Occupational Therapy Assistant Present (Alayna LEE) Accompanied by: Self / Same As Patient Allergies loratadine [From CLARITIN] Allergy (Mild, Verified 07/31/23 13:35) CHILLS AND DIFF BREATHING Is last menstrual period known: No (hysterectomy) HPI HPI Comments History of Present Illness Details Presenting for annual exam. No complaints. Last Pap/HPV was in 08/15 was negative, the patient is status post laparoscopic hysterectomy Last Mammogram was BI-RADS 1 in 05/18 No previous screening Colonoscopy PFSH Medical History Epigastric pain Pre-op chest exam Chronic restrictive lung disease NAM treated with BiPAP Asthma-COPD overlap syndrome Sleep apnea Fibromyalgia Hypertension Fatty liver Gall bladder polyp Acid reflux Obesity (BMI 30-39.9) Coronary artery disease Hyperlipidemia Surgical History History of partial hysterectomy History of esophagogastroduodenoscopy History of endometrial ablation Hx of tubal ligation History of cardiac cath Family History Paternal Grandfather No problems noted. Father History of cancer Lung cancer Mother Heart disease Asthma Social History Household Members: Family and Children Housing: House Do you presently have visiting nurse or other home services: No Alcohol intake: never Patient Tobacco Use Status: Former Tobacco user Tobacco use type: Cigarette Years Smoked: 5 years Second Hand Smoke Exposure: No service: No Current occupational status: disabled Sexual orientation: Straight/Heterosexual Gender identity: Female Female Reproductive History Menstrual Menopause type: surgical Total pregnancies: 12 Full term: 6 Number of Living Children: 6 Ab spontaneous: 5 Date of Mammogram: 05/04/23 Review of Systems Const All systems reviewed & are unremarkable except as noted in HPI and below Card Reports as per HPI and Reports no additional complaints Resp Reports as per HPI and Reports no additional complaints GI Reports as per HPI and Reports no additional complaints Reports as per HPI Physical Exam Vital Signs: BMI result Body Mass Index 43.9 Const General: cooperative, healthy appearing and comfortable General: Yes bladder normal to palpation External Female Exam: No lesion Speculum Exam - Vagina: normal appearance of the vagina, normal vaginal discharge and not erythematous Speculum Exam - Cervix: Cervix absent Bimanual exam- vagina & uterus: bladder normal to palpation and uterus absent Bimanual Exam- Adnexa, other: Other (No masses detected) Assessment & Plan Assessment & Plan (1) Well woman exam: Code(s): Z01.419 - Encounter for gynecological examination (general) (routine) without abnormal findings Plan: Co testing not indicated, the patient is status post hysterectomy for benign days with no history of abnormal Pap smears in the past. Counseled the patient about the recommended dietary allowance of 1200 mg of Calcium & 600 IU of vitamin D. Instructions given the patient to schedule her next screening Mammogram in 05/19. The patient was referred to GI for screening colonoscopy . The patient was instructed to perform monthly self-breast exams and schedule annual exam in a year. All questions answered and the patient verbalized understanding. Orders: Referrals Gastroenterology Referral Z12.11 - Encounter for screening for malignant neoplasm of colon Coding Level of Care Code Est Pt Prev Care 40-64y(44869) Diagnoses Well woman exam Z01.419
== END 2023-07-31 13:47 | disposition home or self-care (01) ==
LOC: HO.HWS 13:23
PROVIDERS: PCP Family Medicine; Visit Provider Obstetrics & Gynecology
DX: Z01.419 Encounter for gynecological examination (general) (routine) without abnormal findings (principal)
CPT/HCPCS: 99396

== ENCOUNTER → 2023-07-31 13:23 | Outpatient (BNVA) | payer MEDICAID, SELFPAY | PROVIDERS: PCP Family Medicine; Visit Provider Obstetrics & Gynecology | DX: Z01.419 Encounter for gynecological examination (general) (routine) without abnormal findings (principal) | CPT/HCPCS: 99396 ==

== ENCOUNTER → 2023-10-20 11:14 | Outpatient (BNVA) | payer MEDICAID, SELFPAY | PROVIDERS: PCP Family Medicine; Visit Provider Surgery ==

== ENCOUNTER → 2023-12-18 08:08 | Outpatient (BNVA) | payer MEDICAID, SELFPAY | PROVIDERS: PCP Family Medicine; Visit Provider Surgery ==

== ENCOUNTER 2024-01-09 14:24 | Outpatient (AMB) | payer MEDICAID, SELFPAY ==
[2024-01-09 14:37] VITALS: PULSE 89; O2SAT 97; BMI 47.5
--- NOTE | 2024-01-09 14:37 | A.OFFVIS_ITS ---
Vital Signs 01/09/24 14:37 Height 4 ft 9 in Weight 219 lb 5.759 oz BMI 47.5 Pulse 89 Pulse Source Pulse Oximeter Pulse Oximetry (%) 97 Oxygen Delivery Method Room Air Intake Visit Reasons: Asthma, NAM Senior Housekeeper Required: No Allergies loratadine [From CLARITIN] Allergy (Mild, Verified 01/09/24 14:38) CHILLS AND DIFF BREATHING HPI Comments Details: The patient is a 53 [id number] woman with a known history of asthma in addition to obstructive sleep apnea. Patient was having significant daytime drowsiness And in 2016 she did undergo a sleep study demonstrating severe sleep apnea. She return for titration study documented that she required BiPAP . The patient was set up through [facility]. She was getting supplies regularly. She has been using her BiPAP ever since with very good adherence. She uses a BiPAP more than 4 hours a night. at some point she is soft receiving supplies. She is not sure why does been the issue. She does have a nasal mask. She wond ers if she do better with a fullface mask. I did have an F 30 available for trial. Therefore she will try the fullface mask and I will request supplies from her [employer] company. In the meantime the patient has been taking multiple inhalers for significant asthma. It appears that the inhalers have been helpful but she Continues to be symptomatic. Therefore will optimize her respiratory therapy and also simplify by switching her over to Trelegy 200. 08/12/2021 the patient is here for a pulmonary follow-up visit. She is complaining of worsening cough and chest congestion. She has been like this for about 3-4 days. She was tested negative for COVID-19 apparently. She continues use the Flovent. The Trelegy inhaler was not covered. Therefore, will add a long-acting beta at agonist and long-acting muscarinic antagonists combination inhaler to her regimen. Hopefully this will help her with her chest tightness. In the meantime will treated for bronchitis with Z-Jan. If the patient is not better or if she worsens then she can consider starting the prednisone taper. In the meantime she has not been using her PAP therapy. She states the pressures are now too high and she cannot tolerated well. Therefore I did ask her to bring machine into for the next visit so we can adjust the pressures. Patient is now being evaluated for her surgery that she has for the growth on her ovary. This is going to happen at [facility] am hopeful she can have this done soon. 11/19/2021 the patient is here for pulmonary follow-up visit. Her breathing has been about the same. She could not tolerate the Bevespi secondary to tachycardia. Therefore switch over to Trelegy. Hopefully she can tolerate that better. In the meantime she is using her BiPAP. However, feels like the pressures are too high and is hard for her to tolerated. Therefore I did decrease the pressure from 18/14 to 15/12. I am hopeful that she can tolerate this better. Will continue to titrated down accordingly as long as her apnea score stay within normal. Her AHI was below 2 which is reassuring. In addition to that the patient is complaining multiple ailments. She is complaining the lower left extremity is swollen and painful. I did look at it and it looked like her veins were distended and was concern for a DVT. Therefore will have her undergo a Doppler study to rule out DVT. 01/19/2022 the patient is here for a preop evaluation. Overall the patient has been feeling well from a respiratory status. She continues use her respiratory medications she size she uses BiPAP also with good compliance. The BiPAP therapy continues to be affecting beneficial. She has not had any issues with wheezing or shortness of breath requiring additional medications. She did have a swelling of her upper extremity where we had requested an ultrasound ruled out DVT. however the area still affected with likely has some superficial phlebitis. The patient is scheduled to undergo gynecological surgery. This point she optimize pulmonary standpoint to proceed with surgery and anesthesia. 07/15/2022 the patient is here for a pulmonary follow-up visit. Overall the patient is doing well. She does complaint of productive cough. The cough seems to be chronic for her. She has always bringing up phlegm. It is hard for her to do so. She does continue to use the Trelegy with partial improvement of her symptoms. She is looking to see if any other medicines can provided in order to help with chronic bronchitis. In the meantime she did bring her BiPAP. The BiPAP still set at 15/12. She is tolerating it well and her AHI is to. She the patient is using it well more than 4 hours a night. The therapy has been affecting beneficial when she is going to continue with current settings. She has been getting supplies through her [employer]. The patient will go ahead and start Daliresp for her chronic bronchitis. I will also give her short course of azithromycin in case she has any infectious process as well. 07/18/2023 the patient is here for a pulmonary follow-up visit. She has not recovered from COVID-19. She had a couple weeks ago. She did not take Paxlovid. She did develop worsening respiratory complaints. The patient also has been complaining of a persistent cough productive in nature with yellow sputum. Moderate severity. Also has been complaining of left-sided flank disc omfort. But typically a little lower than her flank. No pleuritic component to her pain. The patient has been using her BiPAP. The BiPAP therapy continues to be affecting beneficial she does use it every night for more than 4 hours. We also talked about the Daliresp. It has not clear if she is taking it for the chronic bronchitis. She is going to assess her medications at home. As far as her current respiratory complaints the patient likely has a postviral bacterial bronchitis lower respiratory infection so therefore will start her on doxycycline. If the patient is no better she will come in for chest x-ray and call the office. 01/09/2024 the patient is here for pulmonary follow-up visit. The patient continues to have significant dyspnea on exertion. Moderate severity with min imal activity. She feels very breathless. She also uses her respiratory medications and does not have any significant relief. She is on maximum respiratory therapy. her respiratory exam is also reassuring. We did go for brief walking oximetry and the patient's heart rate quickly increase to about 120 beats per minute. Oxygen was stable 98%. Therefore likely that the patient has shortness of breath has to do more with the increased heart rate. Will have her undergo an echocardiogram. She is also having difficulty swallowing. Sometimes she has food stuck in her throat and then she has a hard time breathing. Therefore will go ahead and request a barium swallow as well. She will continue her current respiratory therapy. In the meantime she does continue to use her PAP therapy every night. The PAP therapy continues to be affecting beneficial. She does use it for more than 4 hours a night. [facility] Medical History Epigastric pain Pre-op chest exam Chronic restrictive lung disease NAM treated with BiPAP Asthma-COPD overlap syndrome Sleep apnea Fibromyalgia Hypertension Fatty liver Gall bladder polyp Acid reflux Obesity (BMI 30-39.9) Coronary artery disease Hyperlipidemia Surgical History History of partial hysterectomy History of esophagogastroduodenoscopy History of endometrial ablation Hx of tubal ligation History of cardiac cath Family History Paternal Grandfather No problems noted. Father History of cancer Lung cancer Mother Heart disease Asthma Social History Household Members: Family and Children Housing: House Do you presently have visiting nurse or other home services: No Alcohol intake: never Patient Tobacco Use Status: Former Tobacco user Tobacco use type: Cigarette Years Smoked: 5 years Second Hand Smoke Exposure: No service: No Current occupational status: disabled Sexual orientation: Straight/Heterosexual Gender identity: Female Review of Systems Const Denies weight gain and Denies weight loss ENT Reports no additional complaints, Denies dysphagia and Denies odynophagia Card Reports no additional complaints, Reports palpitations and Reports dyspnea on exertion Resp Denies change in phlegm color, Denies chest congestion, Reports cough and Reports dyspnea on exertion GI Denies belching, Denies melena, Reports bloating, Denies dysphagia, Denies excessive flatus, Denies dyspepsia, Denies heartburn, Denies diarrhea, Denies loose stools, Denies nausea, Denies odynophagia and Denies vomiting Reports no additional complaints Musc Reports no additional complaints and Reports myalgias Skin/Breast Denies rash Neuro Reports no additional complaints Psych Reports no additional complaints Endo Reports no additional complaints and Reports palpitations Physical Exam Vital Signs: Last Vital Signs Pulse 89 01/09/24 14:37 Pulse Ox 97 01/09/24 14:37 Oxygen Delivery Method Room Air 01/09/24 14:37 BMI result Body Mass Index 47.5 Const General: alert Neck Neck: Yes normal visual inspection, Yes full ROM and Yes no lymphadenopathy Chest Chest palpation & inspection: normal inspection of the chest Resp Effort & Inspection: normal respiratory effort Auscultation: no crackles, no rales, no rhonchi, no wheezes and diminished lung sounds Cardio Rate: regular rate Rhythm: regular rhythm Heart sounds: S1 normal heart sound present and S2 normal heart sound present GI Palpation (GI): Soft to palpation and nontender Auscultation: normal bowel sounds Skin General skin exam: rashes and/or lesions noted Assessment & Plan Assessment & Plan (1) Asthma-COPD overlap syndrome: Code(s): J44.9 - Chronic obstructive pulmonary disease, unspecified Category: Medical (2) NAM treated with BiPAP: Code(s): G47.33 - Obstructive sleep apnea (adult) (pediatric) Category: Medical (3) Chronic restrictive lung disease: Code(s): J98.4 - Other disorders of lung Category: Medical Plan Continue BIPAP 09/06 continue Trelegy continue singulair LAURE as needed barium swallow ECHO Follow-up in 4-6 months Orders: Orders [place] barium swallow Today K21.9 - Gastro-esophageal reflux disease without esophagitis CA echo transthoracic complete Today I27.20 - Pulmonary hypertension, unspecified Coding Level of Care Code Est Pt Level 4 (40185) Diagnoses Asthma-COPD overlap syndrome J44.9 NAM treated with BiPAP G47.33 Chronic restrictive lung disease J98.4 Time Spent (min) 17
== END 2024-01-09 14:54 | disposition home or self-care (01) ==
PROVIDERS: PCP Family Medicine; Visit Provider Hospitalist
DX: J44.9 Chronic obstructive pulmonary disease, unspecified (principal); G47.33 Obstructive sleep apnea (adult) (pediatric); J98.4 Other disorders of lung
CPT/HCPCS: 99214

== ENCOUNTER → 2024-01-09 14:24 | Outpatient (BNVA) | payer MEDICAID, SELFPAY | PROVIDERS: PCP Family Medicine; Visit Provider Hospitalist | DX: J44.9 Chronic obstructive pulmonary disease, unspecified (principal); J98.4 Other disorders of lung; G47.33 Obstructive sleep apnea (adult) (pediatric) | CPT/HCPCS: 99212 ==

== ENCOUNTER → 2024-01-30 13:50 | Outpatient (REF) | payer MEDICAID, SELFPAY ==
--- NOTE | 2024-01-30 13:52 | CA_ITS ---
Transthoracic Echocardiogram Patient (Last, First, Middle): Ximena Xiong, Gender: Female Date of : 1970 Age: 53 Procedure Date: 01/30/2024 Procedure Type: Transthoracic Echocardiogram Location: OP Height: 144.78 cm Weight: 99.34 kg BSA: 1.87 m2 Heart Rate: 83 bpm BP: 148 / 72 mmHg Net Finisher: SB Referring MD: Fermin Vyas MD Pre Sales Technical Engineer: Abraham Chowdhury MD Symptoms: I27.20 - Pulmonary hypertension, unspecified Study Quality: Poor/unable to obtain IV access ECG Rhythm: Sinus Conclusions: - 1. Technically poor study, IV access could not be established 2. On some views LV ejection fraction appears to be greater than 50% Findings Procedure Information The quality of the study was technically difficult. The study quality is limited by patients body habitus. Left Ventricle The left ventricle was not well visualized. Spectral Doppler is indicative of an impaired relaxation filling pattern. LV systolic function on some views appears to be preserved at greater than 50% Right Ventricle The right ventricle was not well visualized. Atria The left atrium was not well visualized. Interatrial shunt cannot be excluded. The right atrium was not well visualized. Aortic Valve The aortic valve was not well visualized. Mitral Valve The mitral valve was not well visualized. Pulmonic Valve The pulmonic valve was not well visualized. Tricuspid Valve The tricuspid valve was not well visualized. Great Vessels The aorta was not well visualized. The pulmonary artery was not well visualized. Venous The inferior vena cava was not well visualized. Pericardium/Pleural The pericardium was not well visualized. Measurements 2D Linear Measurements IVSd: 1.43 0.6-0.9/0.6-1.0 cm LA Diam: 3.80 2.7-3.8/3.0-4.0 cm LAIDs Index: 2.03 1.5-2.3 cm/m2 LVOT Diam: 2.10 3.0+(-)1.3 cm Mitral Valve MV Pk E: 0.59 MV PK A: 0.75 MV Decel Time: 160.00 E/A: 0.80 E'Lateral: 6.20 E'Medial: 6.64 E/E' Med: 8.80 E/E' Lat: 9.50 PHT: 47.00 MVA PHT: 4.68 Decel [place]: 3.68 Aortic Valve AoV Pk Prabhakar: 1.30 AoV Pk Grad: 7.00 CELESTE: 2.97 LVOT LVOT Pk Prabhakar: 1.15 LVOT Mn Prabhakar: 0.76 LVOT VTI: 0.24 LVOT Pk Grad: 5.00 LVOT Mn Grad: 3.00 LVOT Diam: 2.10 LVOT Area: 3.46 Diastolic Function MV Pk E: 0.59 MV Pk A: 0.75 E/A: 0.80 E'Medial: 6.64 E/E' Med: 8.80 E' Laterial: 6.20 E/E' Lat: 9.50 Right Ventricle TAPSE (mm): 19.80 TVS' Prabhakar: 12.10 Tricuspid Valve RA Press: 3.00 Great Vessels Aorta Ao Asc: 2.70 2.1-3.4 cm Pulmonary Valve PV Pk Prabhakar: 0.81 Peak PV Grad: 3.00 Updated in Other Vendor System with Status of Final Abraham Chowdhury MD electronically signed on 01/30/2024 4:31:56 PM with status of Final
== END ==
LOC: HO.CARD 13:50
PROVIDERS: PCP Family Medicine; Visit Provider Hospitalist
DX: I27.20 Pulmonary hypertension, unspecified (principal)
CPT/HCPCS: 93306

== ENCOUNTER → 2024-01-30 13:52 | Outpatient (BNV) | payer MEDICAID, SELFPAY | PROVIDERS: PCP Family Medicine; Visit Provider Internal Medicine Cardiovascular Disease | DX: I27.20 Pulmonary hypertension, unspecified (principal) | CPT/HCPCS: 93306 ==

== ENCOUNTER → 2024-02-21 14:49 | Outpatient (RCR) | payer MEDICAID, SELFPAY ==
[2020-05-20 14:17] VITALS: BP 135/65; PULSE 78; RESP 20; TEMP 36.2; O2SAT 96; BMI 40.9
--- NOTE | 2020-05-20 15:17 | PM.HEMONCPN ---
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 Her D-dimer was less than 200, Doppler was read as probable partial occlusion of right subclavian vein. Nonsmoker, no UE history of OCP use, surgery or trauma to right upper extremity. Interval History Interval history: Patient is here in follow-up. She is doing well now but she experienced some chest pain and felt anxious 2 days ago, she was seen in the emergency department. She had a CT scan and was told this was now normal. She is on Eliquis 5 mg twice a day, she was taking 2 tablets twice a day for the 1st 2 weeks. Other than her chronic pain in her neck, back and lower extremity from fibromyalgia, she has no new complaints today. She denies cough, fever or chills. No pleuritic chest pain or shortness of breath. Review of Systems - Constitutional Reports as per HPI, Reports no additional constitutional complaints [facility] Medical History: Medical History (Last Updated 05/20/20 @ 14:25 by Ellie Patel RN) Acid reflux Coronary artery disease Fatty liver Fibromyalgia Gall bladder polyp Hyperlipidemia Hypertension Obesity (BMI 30-39.9) Sleep apnea Family History: Family History (Last Updated 05/20/20 @ 14:27 by Ellie Patel RN) Paternal Grandfather No problems noted. Father History of cancer Lung cancer Mother No problems noted. Surgical History: Surgical History (Last Reviewed 05/14/20 @ 03:30 by Joaquim Hinds MD) History of cardiac cath Oncology Screenings - ECOG Performance Status ECOG Performance Status: 0 Home Medications and Allergies Home Medications Medication Instructions Recorded Confirmed Type albuterol sulfate 90 mcg/actuation 1 inh INHALATION Q4-6H PRN 03/26/20 05/14/20 History breath activated powder inhaler amlodipine 5 mg tablet 5 mg PO DAILY 03/26/20 05/14/20 History aspirin 81 mg tablet,delayed 81 mg PO DAILY 03/26/20 05/14/20 History release cholecalciferol (vitamin D3) 25 25 mcg PO DAILY 03/26/20 05/14/20 History mcg (1,000 unit) capsule docusate sodium 100 mg capsule 100 mg PO DAILY PRN 03/26/20 05/14/20 History ezetimibe 10 mg tablet 10 mg PO DAILY 03/26/20 05/14/20 History fluticasone propionate 110 1 puff INHALATION BID 03/26/20 05/14/20 History mcg/actuation HFA aerosol inhaler gabapentin 400 mg capsule 400 mg PO DAILY 03/26/20 05/14/20 History lorazepam 2 mg tablet 2 mg PO BEDTIME PRN 03/26/20 05/14/20 History methocarbamol 500 mg tablet 500 mg PO QID PRN 03/26/20 05/14/20 History pantoprazole 40 mg tablet,delayed 40 mg PO DAILY 03/26/20 05/14/20 History release rosuvastatin 10 mg tablet 10 mg PO DAILY 03/26/20 05/14/20 History zolpidem 10 mg tablet 5 mg PO BEDTIME PRN 03/26/20 05/14/20 History tramadol 50 mg PO BID PRN 05/20/20 05/20/20 History Allergies Allergy/AdvReac Type Severity Reaction Status Date / Time loratadine [From CLARITIN] Allergy Mild CHILLS AND Verified 05/13/20 21:24 DIFF BREATHING Exam Vital signs: Vital Signs Temp 97.2 F 05/20/20 14:17 Pulse 78 05/20/20 14:17 Resp 20 05/20/20 14:17 BP 135/65 05/20/20 14:17 Pulse Ox 96 05/20/20 14:17 Intake & Output 05/19/20 05/20/20 05/20/20 18:59 06:59 18:59 Other: Weight 95.1 kg Weight 95.1 kg Body Mass Index 40.9 - Constitutional Present: no acute distress - Routine HEENT Exam Head: Present: normal inspection Eye: Present: EOMI - Routine Neck Exam Present: normal inspection. Absent: lymphadenopathy - Routine Respiratory Exam Present: CTAB - Routine Cardiovascular Exam Cardiovascular: Present: RRR, S1, S2 - Routine Skin Exam Present: intact. Absent: cyanosis, erythema Progress Note: A/P (1) DVT (deep venous thrombosis) Status: Acute Assessment and plan: This is a 49-year-old woman with right upper extremity DVT. Her D-dimer was less than 200, Doppler was read as probable partial occlusion of right subclavian vein. . It is unclear as to the etiology. She is not a smoker, she is not on hormones/estrogens and she did not have any recent surgical procedure or trauma to the right upper extremity. Thrombophilia workup is pending. she is on anticoagulation with Eliquis 5 mg b.i.d.. She was seen on 05/18/2020 with chest pain, CT angiogram was negative. I have advised her to continue Eliquis 5 mg b.i.d. for a total of 3 months. I will consider repeat right upper extremity Doppler in a couple of months. Follow-up in 2 months. - Time Spent With Patient Total time spent is greater than 50% in coordination of care (as documented) at patient's floor/unit and/or counseling patient: 15 - 24 minutes
[2020-08-12 14:33] VITALS: BMI 41.2
[2020-08-12 14:50] VITALS: BP 110/74; PULSE 104; RESP 12; TEMP 36.9; O2SAT 96; BMI 41.2
--- NOTE | 2020-08-12 15:06 | P.PNHO_ITS ---
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 Her D-dimer was less than 200, Doppler was read as probable partial occlusion of right subclavian vein. Nonsmoker, no smoking or history of OCP use, surgery or trauma to right upper extremity. CT angiogram performed in June and July 2020 was negative for pulmonary embolism. Interval History Interval history: Patient is here in follow-up. She is doing well and has no new complaints today. She has stopped taking Eliquis and is now on baby aspirin. She denies any chest pain or shortness of breath. Review of Systems - Constitutional Reports no additional constitutional complaints - Cardiovascular Reports no additional cardiovascular complaints - Respiratory Reports no additional respiratory complaints [facility] Medical History: Medical History (Last Reviewed 07/29/20 @ 17:53 by Bertha Kelly NP) Acid reflux Coronary artery disease Fatty liver Fibromyalgia Gall bladder polyp Hyperlipidemia Hypertension Obesity (BMI 30-39.9) Sleep apnea Family History: Family History (Last Updated 08/12/20 @ 14:56 by Rosalva Mckeon) Paternal Grandfather No problems noted. Father History of cancer Lung cancer Mother Heart disease Surgical History: Surgical History (Last Reviewed 07/29/20 @ 17:53 by Bertha Kelly NP) History of cardiac cath Social History: Social History (Last Reviewed 07/29/20 @ 17:53 by Bertha Kelly NP) Living Situation History: Household Members: Significant Other Household Members: Children Housing: Apartment Alcohol History: Alcohol intake: never Tobacco History: Second Hand Smoke Exposure: No Occupation Assessmet: service: No Current occupational status: disabled Oncology Screenings - ECOG Performance Status ECOG Performance Status: 1 Home Medications and Allergies Home Medications Medication Instructions Recorded Confirmed Type albuterol sulfate 90 mcg/actuation 1 inh INHALATION Q4-6H PRN 03/26/20 08/12/20 History breath activated powder inhaler amlodipine 5 mg tablet 5 mg PO DAILY 03/26/20 08/12/20 History aspirin 81 mg tablet,delayed 81 mg PO DAILY 03/26/20 08/12/20 History release cholecalciferol (vitamin D3) 25 25 mcg PO DAILY 03/26/20 08/12/20 History mcg (1,000 unit) capsule docusate sodium 100 mg capsule 100 mg PO DAILY PRN 03/26/20 08/12/20 History ezetimibe 10 mg tablet 10 mg PO DAILY 03/26/20 08/12/20 History fluticasone propionate 110 1 puff INHALATION BID 03/26/20 08/12/20 History mcg/actuation HFA aerosol inhaler gabapentin 400 mg capsule 400 mg PO DAILY 03/26/20 08/12/20 History lorazepam 2 mg tablet 2 mg PO BEDTIME PRN 03/26/20 08/12/20 History methocarbamol 500 mg tablet 500 mg PO QID PRN 03/26/20 08/12/20 History pantoprazole 40 mg tablet,delayed 40 mg PO DAILY 03/26/20 08/12/20 History release rosuvastatin 10 mg tablet 10 mg PO DAILY 03/26/20 08/12/20 History zolpidem 10 mg tablet 5 mg PO BEDTIME PRN 03/26/20 08/12/20 History tramadol 50 mg PO BID PRN 05/20/20 06/11/20 History Allergies Allergy/AdvReac Type Severity Reaction Status Date / Time loratadine [From CLARITIN] Allergy Mild CHILLS AND Verified 07/01/20 21:13 DIFF BREATHING Exam Vital signs: Vital Signs Temp 98.4 F 08/12/20 14:50 Pulse 104 H 08/12/20 14:50 Resp 12 08/12/20 14:50 BP 110/74 08/12/20 14:50 Pulse Ox 96 08/12/20 14:50 Intake & Output 08/11/20 08/12/20 08/12/20 18:59 06:59 18:59 Other: Weight 95.8 kg [place] Weight in Grams [id number] Weight 95.8 kg Body Mass Index 41.2 - Constitutional Present: no acute distress - Routine HEENT Exam Head: Present: normal inspection - Routine Neck Exam Present: normal inspection. Absent: lymphadenopathy - Routine Respiratory Exam Present: CTAB - Routine Cardiovascular Exam Cardiovascular: Present: RRR, S1, S2 - Routine Skin Exam Present: intact. Absent: cyanosis, erythema Progress Note: A/P (1) DVT (deep venous thrombosis) Status: Resolved Assessment and plan: This is a 49-year-old woman with right upper extremity DVT. Her D-dimer was less than 200, Doppler was read as probable partial occlusion of right subclavian vein. It is unclear as to the etiology. She is not a smoker, she is not on hormones/estrogens and she did not have any recent surgical procedure or trauma to the right upper extremity. Thrombophilia workup was negative. CT angiogram was negative for pulmonary embolism. She stopped Eliquis after completion of 3 months of therapy. She will now follow up with her PCP. - Time Spent With Patient Total time spent is greater than 50% in coordination of care (as documented) at patient's floor/unit and/or counseling patient: 15 - 24 minutes
--- NOTE | 2020-08-12 15:29 | MHC.HEMONC ---
Patient present for follow up for DVT. 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 No follow up needed.
== END | disposition home or self-care (01) ==
LOC: HO.ONC 05-20 14:04
PROVIDERS: PCP Family Medicine; Visit Provider Internal Medicine
DX: I82.B11 Acute embolism and thrombosis of right subclavian vein (principal); Z79.82 Long term (current) use of aspirin
CPT/HCPCS: 99213

== ENCOUNTER 2024-02-26 14:30 | Emergency (ER) | payer MEDICAID, SELFPAY ==
--- NOTE | 2024-02-26 | ECG_ITS ---
Test Reason : CHEST PAIN Blood Pressure : / mmHG Vent. Rate : 082 BPM Atrial Rate : 082 BPM P-R Int : 124 ms QRS Dur : 072 ms QT Int : 358 ms P-R-T Axes : 039 -07 066 degrees QTc Int : 418 ms Normal sinus rhythm Inferior infarct (cited on or before 23-JUN-2023) Cannot rule out Anterior infarct (cited on or before 23-JUN-2023) Abnormal ECG When compared with ECG of 23-JUN-2023 22:51, Vent. rate has decreased BY 52 BPM Referred By: Generic ED Physician Electronically Signed By:DAKOTA WESLEY
--- NOTE | ~2024-02-26 | XR_ITS ---
EXAMINATION: XR CHEST CLINICAL INFORMATION: Chest pressure COMPARISON: Chest x-ray on 06/23/2023 TECHNIQUE: 2 views of the chest were obtained. FINDINGS: No significant abnormality is noted involving the heart, lungs, mediastinum, bony thorax or soft tissues. XR/XR chest 2V IMPRESSION: Unremarkable examination. Electronically signed by: Waleska Villanueva MD 02/26/2024 03:46 PM EDT RP
[2024-02-26 14:44] VITALS: BP 147/81; PULSE 98; RESP 18; TEMP 36.4; O2SAT 98; BMI 43.6
--- NOTE | 2024-02-26 15:29 | ED_ITS ---
HPI - Chest Pain General Chief Complaint: Chest Pain Stated Complaint: Chest pain/HBP Related Data Home Medications ?Medication ?Instructions ?Recorded ?Confirmed docusate sodium 100 mg capsule 100 mg PO DAILY PRN Constipation 03/26/20 12/20/22 (Colace) lorazepam 2 mg tablet (Ativan) 2 mg PO BEDTIME PRN Anxiety 03/26/20 12/20/22 zolpidem 10 mg tablet (Ambien) 5 mg PO BEDTIME PRN Anxiety 03/26/20 12/20/22 tramadol 50 mg tablet 50 mg PO BID PRN Pain 05/20/20 12/20/22 CPAP (CPAP Machine/Device) #1 ea 12/24/20 07/13/22 cetirizine 10 mg tablet 10 mg PO DAILY 07/19/21 12/20/22 duloxetine 60 mg capsule,delayed 60 mg PO DAILY 07/19/21 12/20/22 release fluticasone propionate 50 2 spray intranasal DAILY 07/19/21 12/20/22 mcg/actuation nasal spray,suspension lisinopril 5 mg tablet 5 mg PO DAILY 07/19/21 07/13/22 albuterol sulfate 2.5 mg/3 mL 1 amp inhalation Q4H PRN Wheezing 01/17/22 12/20/22 (0.083 %) solution for nebulization gabapentin 400 mg capsule 400 cap PO BID 01/17/22 12/20/22 multivitamin-iron sulfate 15 1 tab PO DAILY 01/17/22 12/20/22 mg-folic acid 400 mcg tablet (Tab-A-Colton Multivitamin w-iron) naloxone 4 mg/actuation nasal spray 1 spray intranasal ONCE PRN Opioid 01/17/22 12/20/22 Overdose nebulizers 07/18/23 Previous Rx's ?Medication ?Instructions ?Recorded sumatriptan succinate 50 mg tablet 50 mg PO Q2-4H PRN migraine 11/05/20 headache #10 tabs albuterol sulfate 90 mcg/actuation 1 inh inhalation QID PRN shortness 12/28/20 aerosol inhaler of breath or wheezing #8.5 grams polyethylene glycol 3350 17 gram 17 g PO DAILY #30 ea 07/19/21 oral powder packet (Miralax) cholecalciferol (vitamin D3) 50 50 mcg PO DAILY #30 tabs 07/26/21 mcg (2,000 unit) tablet sennosides 8.6 mg tablet (Natural 8.6 mg PO BEDTIME constipation #30 11/17/21 Senna Laxative) tabs fluticasone fur. 200 mcg-umeclid 1 inh inhalation DAILY 30 days #60 11/19/21 62.5 mcg-vilant 25 mcg ea inhalat.powder (Trelegy Ellipta) ibuprofen 600 mg tablet 600 mg PO Q8H PRN pain 14 days #30 01/17/22 tabs famotidine 40 mg tablet 40 mg PO BEDTIME #30 tabs 05/27/22 evolocumab 140 mg/mL subcutaneous 140 mg subcut Q2W #2 mL 05/03/23 pen injector (Dominic Sunshine) acetaminophen 500 mg tablet 500 mg PO Q6H PRN fever or pain 06/24/23 #14 tabs ibuprofen 600 mg tablet 600 mg PO Q8H PRN fever or pain 06/24/23 #14 tabs doxycycline monohydrate 100 mg 100 mg PO BID 14 days #28 tabs 07/18/23 tablet fenofibrate 54 mg tablet 54 mg PO DAILY #90 tabs 07/18/23 montelukast 10 mg tablet 10 mg PO BEDTIME 30 days #30 tabs 07/18/23 (Singulair) umeclidinium 62.5 mcg-vilanterol 1 inh inhalation DAILY #60 ea 12/06/23 25 mcg/actuation powdr for inhalation (Anoro Ellipta) amlodipine 10 mg tablet 10 mg PO DAILY #90 tabs 12/08/23 ezetimibe 10 mg tablet 10 mg PO DAILY #90 tabs 12/08/23 rosuvastatin 40 mg tablet 40 mg PO DAILY #90 tabs 12/08/23 roflumilast 250 mcg tablet 250 mcg PO DAILY 30 days #30 tabs 01/23/24 (Daliresp) Allergies Allergy/AdvReac Type Severity Reaction Status Date / Time loratadine [From CLARITIN] Allergy Mild CHILLS AND Verified 02/26/24 14:45 DIFF BREATHING PMFSH Past Medical History Medical History Epigastric pain Pre-op chest exam Chronic restrictive lung disease NAM treated with BiPAP Asthma-COPD overlap syndrome Sleep apnea Fibromyalgia Hypertension Fatty liver Gall bladder polyp Acid reflux Obesity (BMI 30-39.9) Coronary artery disease Hyperlipidemia Surgical History History of partial hysterectomy History of esophagogastroduodenoscopy History of endometrial ablation Hx of tubal ligation History of cardiac cath Family History Family History Paternal Grandfather No problems noted. Father History of cancer Lung cancer Mother Heart disease Asthma Social History Social History Household Members: Family and Children Housing: House Do you presently have visiting nurse or other home services: No Alcohol intake: never Patient Tobacco Use Status: Former Tobacco user Tobacco use type: Cigarette Years Smoked: 5 years Second Hand Smoke Exposure: No Advance Directives: No Advance Directives Information Provided: No Do you have a plan to hurt others: No Plan service: No Current occupational status: disabled Sexual orientation: Straight/Heterosexual Gender identity: Female Physical Exam 2 Vital Signs: Vital Signs: Last Vital Signs Temp 97.6 F 02/26/24 14:44 Pulse 98 02/26/24 14:44 Resp 18 02/26/24 14:44 BP 147/81 H 02/26/24 14:44 Pulse Ox 98 02/26/24 14:44 O2 Del Method Room Air 02/26/24 14:44 BMI result Body Mass Index 43.6 Course Course Course Narrative: This is a Rapid Medical Examination (RME) performed by Joya Emanuel PA-C in triage. Full HPI, ROS, assessment and treatment plan per primary provider in the Main ED. 53 yo female hx of HTN, HDL, CAD, asthma-copd, fibromyalgia, NAM with BiPAP here for elevated blood pressures (180s over 100s). Taking lisinopril 5 mg but feels like it is not working. Reports headache, began having chest pain today with radiation down left arm. Associated nausea mild shortness of breath + well-appearing in triage. bp 147/81. Plan: EKG, labs, chest x-ray Reevaluation(s) Reevaluation #1: Patient left the emergency department before myself or any of the other clinicians could review or explain physical exam findings, test results, need or lack there of for additional testing, treatment options, or a treatment plan. Medical Decision Making Lab Data 02/26/24 15:31 02/26/24 15:31 Labs: Lab Results 02/26/24 Range/Units 15:31 WBC 7.1 (4.8-10.8) X10*3/uL RBC 4.55 (4.20-5.50) X10*6/uL Hgb 14.1 (12.0-16.0) g/dl Hct 41.6 (37.0-47.0) % MCV 91.4 (80.0-98.0) fL MCH 31.0 (27.0-33.0) pg MCHC 33.9 (31.0-35.0) g/dl RDW 12.8 (11.0-16.0) % Plt Count 244 (160-400) X10*3/uL MPV 11.2 (9.4-12.3) fL Immature Gran % (Auto) 0.1 (0.0-0.4) % Neut % (Auto) 49.7 (45-73) % Lymph % (Auto) 39.7 (20-40) % [place] % (Auto) 9.7 (2-11) % Eos % (Auto) 0.7 (0-4) % Baso % (Auto) 0.1 (0-2) % Lymph # (Auto) 2.8 (1.2-4.9) X10*3/uL [place] # (Auto) 0.7 (0.1-1.2) X10*3/uL Eos # (Auto) 0.1 (0.0-0.4) X10*3/uL Baso # (Auto) 0.0 (0.0-0.2) X10*3/uL Abs Immat Gran (auto) 0.01 (0.00-0.03) X10*3/uL Absolute Neuts (auto) 3.5 (2.0-8.3) x10*3/uL Absolute Nucleated RBC 0.000 (0.0-0.012) X10*3/uL Nucleated RBC % (auto) 0.0 (0.0-0.2) /100WBC Sodium 141 (135-145) mmol/L Potassium 4.0 (3.3-5.1) mmol/L Chloride 107 (96-108) mmol/L Carbon Dioxide 24 (22-29) mmol/L Anion Gap 14 (12-20) BUN 10 (9-16) mg/dL Creatinine 0.80 (0.5-1.4) mg/dL Estim Creat Clear Calc 88.1 Estimated GFR > 60 Random Glucose 97 (60-115) mg/dL Calcium 10.5 H D (8.4-10.2) mg/dL Magnesium 2.1 (1.6-2.6) mg/dL Total Bilirubin 0.3 (0.0-1.0) mg/dL AST 19 (5-31) U/L ALT 26 (0-31) U/L Alkaline Phosphatase 79 (39-117) U/L Troponin I High Sens < 2.7 (<3.5-17.0) ng/L Total Protein 7.8 (6.5-8.0) g/dL Albumin 4.6 (3.5-5.0) g/dL Influenza Type A (PCR) NEGATIVE (Negative) Influenza Type B (PCR) NEGATIVE (Negative) RSV RNA Qual (PCR) NEGATIVE (Negative) SARS-CoV-2 RNA (RT-PCR) NEGATIVE (Negative) Discharge Plan Discharge Clinical Impression: Chest pain Patient Disposition: Left W/O Completing Treatment Prescriptions: No Action cholecalciferol (vitamin D3) 50 mcg (2,000 unit) tablet 50 mcg PO DAILY Qty: 30 6RF sennosides [Natural Senna Laxative] 8.6 mg tablet 8.6 mg PO BEDTIME Qty: 30 3RF famotidine 40 mg tablet 40 mg PO BEDTIME Qty: 30 3RF montelukast [Singulair] 10 mg tablet 10 mg PO BEDTIME 30 Days Qty: 30 11RF fenofibrate 54 mg tablet 54 mg PO DAILY Qty: 90 3RF Anoro Ellipta 62.5-25 mcg/actuation blister with device 1 inh inhalation DAILY Qty: 60 11RF amlodipine 10 mg tablet 10 mg PO DAILY Qty: 90 3RF ezetimibe 10 mg tablet 10 mg PO DAILY Qty: 90 3RF rosuvastatin 40 mg tablet 40 mg PO DAILY Qty: 90 3RF roflumilast [Daliresp] 250 mcg tablet 250 mcg PO DAILY 30 Days Qty: 30 11RF sumatriptan succinate 50 mg tablet 50 mg PO Q2-4H PRN (Reason: migraine headache) Qty: 10 0RF Rx Instructions: do not exceed 4 doses per 24 hrs tramadol 50 mg Tablet 50 mg PO BID PRN (Reason: Pain) albuterol sulfate 90 mcg/actuation HFA aerosol inhaler 1 inh inhalation QID PRN (Reason: shortness of breath or wheezing) Qty: 8.5 0RF albuterol sulfate 2.5 mg /3 mL (0.083 %) solution for nebulization 1 amp inhalation Q4H PRN (Reason: Wheezing) gabapentin 400 mg capsule 400 cap PO BID naloxone 4 mg/actuation spray,non-aerosol 1 spray intranasal ONCE PRN (Reason: Opioid Overdose) Tab-A-Colton Multivitamin w-iron 15 mg iron- 400 mcg tablet 1 tab PO DAILY acetaminophen 500 mg tablet 500 mg PO Q6H PRN (Reason: fever or pain) Qty: 14 0RF ibuprofen 600 mg tablet 600 mg PO Q8H PRN (Reason: fever or pain) Qty: 14 0RF lorazepam [Ativan] 2 mg tablet 2 mg PO BEDTIME PRN (Reason: Anxiety) zolpidem [Ambien] 10 mg tablet 5 mg PO BEDTIME PRN (Reason: Anxiety) docusate sodium [Colace] 100 mg capsule 100 mg PO DAILY PRN (Reason: Constipation) (DME) CPAP Machine/Device Device See Rx Instructions .ROUTE .MEDSUPPLY Qty: 1 Rx Instructions: As directed duloxetine 60 mg capsule,delayed release(DR/EC) 60 mg PO DAILY fluticasone propionate 50 mcg/actuation spray,suspension 2 spray intranasal DAILY lisinopril 5 mg tablet 5 mg PO DAILY cetirizine 10 mg tablet 10 mg PO DAILY polyethylene glycol 3350 [Miralax] 17 gram powder in packet 17 g PO DAILY Qty: 30 5RF Trelegy Ellipta 200-62.5-25 mcg blister with device 1 inh inhalation DAILY 30 Days Qty: 60 12RF ibuprofen 600 mg tablet 600 mg PO Q8H PRN (Reason: pain) 14 Days Qty: 30 0RF Repatha SureClick 140 mg/mL pen injector 140 mg subcut Q2W Qty: 2 11RF (DME) nebulizers Misc See Rx Instructions .ROUTE Rx Instructions: As directed doxycycline monohydrate 100 mg tablet 100 mg PO BID 14 Days Qty: 28 0RF Discharge Date/Time: 02/26/24 21:04
[2024-02-26 15:37] LABS: MANUAL DIFF FLAG NO
[2024-02-26 15:47] LABS: Basophils Percent Auto 0.1 % (0-2); Eosinophils Absolute Auto 0.1 X10*3/uL (0.0-0.4); Eosinophils Percent Auto 0.7 % (0-4); Hematocrit 41.6 % (37.0-47.0); Hemoglobin 14.1 g/dl (12.0-16.0); Imm Gran Abs Auto 0.01 X10*3/uL (0.00-0.03); Imm Gran Pct Auto 0.1 % (0.0-0.4); Lymphocytes Absolute Auto 2.8 X10*3/uL (1.2-4.9); Lymphocytes Percent Auto 39.7 % (20-40); Mean Corpuscular HGB Conc 33.9 g/dl (31.0-35.0); Mean Corpuscular Volume 91.4 fL (80.0-98.0); Mean Platelet Volume 11.2 fL (9.4-12.3); Monocytes Absolute Auto 0.7 X10*3/uL (0.1-1.2); Monocytes Percent Auto 9.7 % (2-11); Neutrophils Absolute Auto 3.5 x10*3/uL (2.0-8.3); Neutrophils Percent Auto 49.7 % (45-73); Platelet Count 244 X10*3/uL (160-400); Red Blood Count 4.55 X10*6/uL (4.20-5.50); Red Cell Distribution Width 12.8 % (11.0-16.0); White Blood Count 7.1 X10*3/uL (4.8-10.8)
[2024-02-26 16:04] LABS: Alanine Aminotransferase 26 U/L (0-31); Albumin Level 4.6 g/dL (3.5-5.0); Alkaline Phosphatase 79 U/L (39-117); Anion Gap 14 (12-20); Aspartate Amino Transferase 19 U/L (5-31); Bilirubin Total 0.3 mg/dL (0.0-1.0); Blood Urea Nitrogen 10 mg/dL (9-16); Calcium 10.5 mg/dL (8.4-10.2); Carbon Dioxide 24 mmol/L (22-29); Chloride 107 mmol/L (96-108); Creatinine Clr Calc Pharmacy 88.1; Estimated Glomerular Filt Rate > 60; Glucose Random 97 mg/dL (60-115); Magnesium 2.1 mg/dL (1.6-2.6); Sodium 141 mmol/L (135-145); Total Protein 7.8 g/dL (6.5-8.0)
[2024-02-26 16:18] LABS: Influenza A PCR NEGATIVE (Negative); Influenza B PCR NEGATIVE (Negative); Resp Syncy Virus RNA Qual PCR NEGATIVE (Negative); SARS COV2 PCR INHOUSE NEGATIVE (Negative)
[2024-02-26 16:19] LABS: Troponin-I High Sensitivity < 2.7 ng/L (<3.5-17.0)
== END 2024-02-26 21:04 | disposition left against medical advice (07) ==
LOC: HO.ED 20:56
PROVIDERS: Physician Assistant Medical; Emergency Provider Emergency Medicine; PCP Family Medicine
DX: R07.9 Chest pain, unspecified (principal); I25.10 Atherosclerotic heart disease of native coronary artery without angina pectoris; I10 Essential (primary) hypertension; E78.5 Hyperlipidemia, unspecified; Z03.818 Encounter for observation for suspected exposure to other biological agents ruled out
CPT/HCPCS: 0241U; 36415; 71046; 80053; 83735; 84484; 85025; 93005; 99281; 99283

== ENCOUNTER 2024-02-28 09:44 | Outpatient (AMB) | payer MEDICAID, SELFPAY ==
[2024-02-28 09:47] VITALS: BP 120/82; PULSE 84; BMI 44.0
--- NOTE | 2024-02-28 09:47 | MHC.OFFVIS ---
Vital Signs 02/28/24 09:47 Height 5 ft Weight 225 lb 4.999 oz BMI 44.0 BP 120/82 Blood Pressure Location Lt brachial Position Sitting Pulse 84 Pulse Source Monitor Intake Visit Reasons: r/s 01/10/24 8 mos ac Intake Note: pt state that her BP has been high for couple of days. Railcar Switcher Required: Yes Railcar Switcher Language: [employer] Wafer Inspector Services: Railcar Switcher Offered & Declined Railcar Switcher Name: Soren/[id number] Accompanied by: Self / Same As Patient Allergies loratadine [From CLARITIN] Allergy (Mild, Verified 02/28/24 14:42) CHILLS AND DIFF BREATHING Medication List - Last Reconciled 02/28/24 by Ab Gallegos MD acetaminophen 500 mg PO Q6H PRN albuterol sulfate 90 mcg/actuation 1 inh inhalation QID PRN albuterol sulfate 1 amp inhalation Q4H PRN amlodipine 10 mg PO DAILY cetirizine 10 mg PO DAILY cholecalciferol (vitamin D3) 50 mcg PO DAILY CPAP (CPAP Machine/Device) As directed docusate sodium (Colace) 100 mg PO DAILY PRN doxycycline monohydrate 100 mg PO BID 14 days duloxetine 60 mg PO DAILY evolocumab (Repatha SureClick) 140 mg subcut Q2W ezetimibe 10 mg PO DAILY famotidine 40 mg PO BEDTIME fenofibrate 54 mg PO DAILY fluticasone propionate 50 mcg/actuation 2 sprays intranasal DAILY bigfgfjgevb-kbbfwbaer-iabddgiy 200-62.5-25 mcg (Trelegy Ellipta) 1 inh inhalation DAILY 30 days gabapentin 400 caps PO BID ibuprofen 600 mg PO Q8H PRN ibuprofen 600 mg PO Q8H PRN 14 days lisinopril 5 mg PO DAILY lorazepam (Ativan) 2 mg PO BEDTIME PRN montelukast (Singulair) 10 mg PO BEDTIME 30 days multivit-iron sulf-folic acid 15 mg iron- 400 mcg (Tab-A-Colton Multivitamin w-iron) 1 tab PO DAILY naloxone 4 mg/actuation 1 spray intranasal ONCE PRN nebulizers As directed polyethylene glycol 3350 (Miralax) 17 grams PO DAILY roflumilast (Daliresp) 250 mcg PO DAILY 30 days rosuvastatin 40 mg PO DAILY sennosides (Natural Senna Laxative) 8.6 mg PO BEDTIME sumatriptan succinate 50 mg PO Q2-4H PRN tramadol 50 mg PO BID PRN umeclidinium-vilanterol 62.5-25 mcg/actuation (Anoro Ellipta) 1 inh inhalation DAILY zolpidem (Ambien) 5 mg PO BEDTIME PRN HPI Comments Details: 53-year-old female here for follow-up. She had stress testing done for chest pain. Her perfusion imaging was normal. She was complaining of palpitations and she underwent Holter monitoring. This showed no significant arrhythmia but did show frequent sinus tachycardia. She is on Repatha for hyperlipidemia. She has statin intolerance. She has been experiencing sharp stabbing chest pains with ambulation off and on. She also had 1 hour episode of chest discomfort for which she presented to [facility] on 12/25/2021. Her high sensitivity troponin level was less than 3.5 x 2. EKG showed somewhat poor R-wave progression and nonspecific T-wave changes. 02/28/2024: She is here for follow-up. Again complaining of palpitations and anxiety. She also gets out of breath with activity. She is morbidly obese and is considering bariatric surgery. We discussed about weight loss and she will discuss with primary care physician about Ozempic. [facility] Medical History Epigastric pain Pre-op chest exam Chronic restrictive lung disease NAM treated with BiPAP Asthma-COPD overlap syndrome Sleep apnea Fibromyalgia Hypertension Fatty liver Gall bladder polyp Acid reflux Obesity (BMI 30-39.9) Coronary artery disease Hyperlipidemia Surgical History History of partial hysterectomy History of esophagogastroduodenoscopy History of endometrial ablation Hx of tubal ligation History of cardiac cath Family History Paternal Grandfather No problems noted. Father History of cancer Lung cancer Mother Heart disease Asthma Social History Household Members: Family and Children Housing: House Do you presently have visiting nurse or other home services: No Alcohol intake: never Patient Tobacco Use Status: Former Tobacco user Tobacco use type: Cigarette Years Smoked: 5 years Second Hand Smoke Exposure: No service: No Current occupational status: disabled Sexual orientation: Straight/Heterosexual Gender identity: Female Review of Systems Const Denies chills, Denies fatigue, Denies fever(s), Denies frequent falls, Denies weakness, Denies weight gain and Denies weight loss ENT Denies dizziness Card Denies chest pain, Denies leg edema, Denies lightheadedness, Denies palpitations, Denies dyspnea and Denies dyspnea on exertion Resp Denies cough, Denies dyspnea and Denies dyspnea on exertion GI Denies hematochezia Musc Denies abnormal gait, Denies muscle weakness, Denies numbness, Denies radiating pain into limb and Denies tingling Neuro Denies abnormal gait, Denies dizziness, Denies frequent falls, Denies numbness, Denies tingling and Denies weakness Endo Denies fatigue and Denies palpitations Physical Exam Vital Signs: Last Vital Signs Pulse 84 02/28/24 09:47 BP 120/82 02/28/24 09:47 BMI result Body Mass Index 44.0 GENERAL APPEARANCE: in no acute distress, pleasant. Obese. NECK: no carotid bruit, no jugular venous distention. SKIN: no suspicious lesions, warm and dry. HEART: no murmurs, regular rate and rhythm. LUNGS: clear to auscultation bilaterally. ABDOMEN: soft, nontender. EXTREMITIES: no edema. PERIPHERAL PULSES: equal. NEUROLOGIC: No gross deficits, AAO X 3 Office Procedures EKG Details: Sinus rhythm 84 beats per minute, normal axis, nonspecific T-wave changes, can not rule out inferior infarct, QTC 430 milliseconds. [id number], Complete Assessment & Plan Assessment & Plan (1) Obesity (BMI 30-39.9): Code(s): E66.9 - Obesity, unspecified Category: Medical (2) Heart palpitations: Code(s): R00.2 - Palpitations Category: Medical (3) Hypertension: Code(s): I10 - Essential (primary) hypertension Category: Medical Qualifiers: Hypertension type: essential hypertension Qualified Code(s): I10 - Essential (primary) hypertension Plan Pleasant 53 year female who is here for follow-up. She has background history of hypertension and hyperlipidemia. Blood pressure is well controlled currently on amlodipine 10 mg and lisinopril. She previously had Holter monitoring which was normal. She continues to get some anxiety and palpitations. She has obesity and dyspnea. She is considering bariatric surgery. She will discuss with her primary about Ozempic for medical weight loss. Thank you for allowing me to participate in the care of your patient. Please feel free to contact me if you have any questions. Coding Level of Care Code Est Pt Level 4 (73635) Diagnoses Obesity (BMI 30-39.9) E66.9 Heart palpitations R00.2 Hypertension I10 Hypertension type: essential hypertension CPT Codes EKG - CPT: 47482-[id number], Complete ([id number])
== END 2024-02-28 10:22 | disposition home or self-care (01) ==
PROVIDERS: PCP Family Medicine; Referring Provider Family Medicine; Visit Provider Internal Medicine Cardiovascular Disease
DX: E66.9 Obesity, unspecified (principal); R00.2 Palpitations; I10 Essential (primary) hypertension
CPT/HCPCS: 93010; 99214

== ENCOUNTER → 2024-02-28 09:44 | Outpatient (BNVA) | payer MEDICAID, SELFPAY | PROVIDERS: PCP Family Medicine; Visit Provider Internal Medicine Cardiovascular Disease | DX: E66.01 Morbid (severe) obesity due to excess calories (principal); R00.2 Palpitations; I10 Essential (primary) hypertension; Z68.42 Body mass index [BMI] 45.0-49.9, adult; R94.31 Abnormal electrocardiogram [ECG] [EKG] | CPT/HCPCS: 93005; 99212 ==

== ENCOUNTER 2024-02-28 14:25 | Outpatient (AMB) | payer MEDICAID, SELFPAY ==
--- NOTE | 2024-02-28 14:27 | A.OFFVIS_ITS ---
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 Required: Yes Marketing Operations Analyst Language: Community Development Director Services: Marketing Operations Analyst Present Allergies loratadine [From CLARITIN] Allergy (Mild, Verified 02/28/24 14:42) CHILLS AND DIFF BREATHING Medication List - Last Reconciled 02/28/24 by CHRISTIE Shaikh acetaminophen 500 mg PO Q6H PRN albuterol sulfate 90 mcg/actuation 1 inh inhalation QID PRN albuterol sulfate 1 amp inhalation Q4H PRN amlodipine 10 mg PO DAILY cetirizine 10 mg PO DAILY cholecalciferol (vitamin D3) 50 mcg PO DAILY CPAP (CPAP Machine/Device) As directed docusate sodium (Colace) 100 mg PO DAILY PRN doxycycline monohydrate 100 mg PO BID 14 days duloxetine 60 mg PO DAILY evolocumab (Repatha SureClick) 140 mg subcut Q2W ezetimibe 10 mg PO DAILY famotidine 40 mg PO BEDTIME fenofibrate 54 mg PO DAILY fluticasone propionate 50 mcg/actuation 2 sprays intranasal DAILY uyvjcnbpayo-iydhzsjhh-usbphzkk 200-62.5-25 mcg (Trelegy Ellipta) 1 inh inhalation DAILY 30 days gabapentin 400 caps PO BID ibuprofen 600 mg PO Q8H PRN ibuprofen 600 mg PO Q8H PRN 14 days lisinopril 5 mg PO DAILY lorazepam (Ativan) 2 mg PO BEDTIME PRN montelukast (Singulair) 10 mg PO BEDTIME 30 days multivit-iron sulf-folic acid 15 mg iron- 400 mcg (Tab-A-Colton Multivitamin w- iron) 1 tab PO DAILY naloxone 4 mg/actuation 1 spray intranasal ONCE PRN nebulizers As directed polyethylene glycol 3350 (Miralax) 17 grams PO DAILY roflumilast (Daliresp) 250 mcg PO DAILY 30 days rosuvastatin 40 mg PO DAILY sennosides (Natural Senna Laxative) 8.6 mg PO BEDTIME sumatriptan succinate 50 mg PO Q2-4H PRN tramadol 50 mg PO BID PRN umeclidinium-vilanterol 62.5-25 mcg/actuation (Anoro Ellipta) 1 inh inhalation DAILY zolpidem (Ambien) 5 mg PO BEDTIME PRN HPI Comments Details: Pt is here to start the [facility] Weight Management surgical weight loss program. She heard about our program from her PCP. Her goal is to lose weight and achieve a healthy lifestyle as well as to improve, if not resolve, obesity related medical conditions, including hypertension, NAM, hyperlipidemia. She reports first being concerned about her weight 4 years ago, highest weight to date was 250. Current weight is 224 pounds with a BMI of 48.5. She has tried multiple methods of weight loss including fad diets without permanent results. She lives with her family. She does not work due to disability, (states mmultiple comorbidities and depression). She wakes at:?9 am, and goes to bed at?10 pm. Dinner is at 1130 am. Breakfast: bread, egg, ham AM snack: chips, apple, banana Lunch: rice, beans, chicken PM snack: bread, chips, ham Dinner: rice, beans, meat, salad, After dinner: oatmeal, corn flakes, whole milk Other snacks: candy, chocolate, lolly pop Liquids: 160 oz water, 20 oz coke daily, 8-10 oz fruit juice, Alcohol/marijuana/tobacco intake: none Exercise: walking mat 30 min at home, could join PF GERD score: 20 JACKI score: 5 ESS score: 3 QOL score: 91 PFSH Medical History Epigastric pain Pre-op chest exam Chronic restrictive lung disease NAM treated with BiPAP Asthma-COPD overlap syndrome Sleep apnea Fibromyalgia Hypertension Fatty liver Gall bladder polyp Acid reflux Obesity (BMI 30-39.9) Coronary artery disease Hyperlipidemia Surgical History History of partial hysterectomy History of esophagogastroduodenoscopy History of endometrial ablation Hx of tubal ligation History of cardiac cath Family History Paternal Grandfather No problems noted. Father History of cancer Lung cancer Mother Heart disease Asthma Social History Household Members: Family and Children Housing: House Do you presently have visiting nurse or other home services: No Alcohol intake: never Patient Tobacco Use Status: Former Tobacco user Tobacco use type: Cigarette Years Smoked: 5 years Second Hand Smoke Exposure: No service: No Current occupational status: disabled Sexual orientation: Straight/Heterosexual Gender identity: Female Physical Exam Vital Signs: Last Vital Signs Temp 97.4 F 02/28/24 14:40 Pulse 95 02/28/24 14:40 BP 135/64 02/28/24 14:40 Pulse Ox 95 02/28/24 14:40 Oxygen Delivery Method Room Air 02/28/24 14:40 BMI result Body Mass Index 48.5 Const General: cooperative, healthy appearing and no acute distress Orientation/consciousness: patient oriented x3 HEENT Head: Yes normal to inspection Ears: hearing grossly normal bilaterally General nose exam: Normal external nose present Face and sinus: Yes normal facial exam Eyes General: appearance normal, both eyes and all related structures Resp Effort & Inspection: normal respiratory effort Auscultation: clear to auscultation bilaterally Cardio Rate: regular rate Rhythm: regular rhythm Heart sounds: S1 normal heart sound present and S2 normal heart sound present GI Inspection: Yes normal to inspection, No distended and Yes obesity Palpation (GI): Soft to palpation, nontender and no guarding Auscultation: normal bowel sounds Skin General skin exam: no rashes or lesions noted Neuro General: patient oriented x3 Extrem General: No edema Psych Appearance: grossly normal Mental Status: mental status grossly normal Speech and movement: Normal speech and movement present Affect: normal affect Attitude: cooperative Assessment & Plan Assessment & Plan (1) Morbid obesity: Code(s): E66.01 - Morbid (severe) obesity due to excess calories Category: Medical Plan: This is a?53 yo female who will start our SWL program to prepare for bariatric surgery.? Blood work, CXR, ECG, Abd US and UGI have been ordered. She is being scheduled for initial consultations. She will start SWL classes and watch the first three videos before her next appointment. 1. You have been given a paper with a link to our software edward ([email or web address]) to generate an individualized nutritional and exercise plan specific for you. Please send me a screenshot of the plans you will generate Meal to include lean meat (beef, fish, pork, turkey, chicken), or albanian yogurt, or egg whites, or beans with a salad with olive oil and fruits (berries, pears, apples, kiwi). Avoid salt, breads, potatoes, rice, pasta, desserts. 2. If you choose shakes, each shake would be drunk slowly, like coffee over a period of 2 hours. 3. If you choose bars, cut each bar in 4 pieces and eat each piece in 30 min to make each bar last 2 hours. 4. I emphasized the importance of measuring accurately the food portion and measure it when serving the food on a plate 5. The meal portions include a specific number of forks of meat (protein) and salad. You always eat the meat portion but you can replace up to half of salad/vegetables portion with rice, potatoes or pasta, or a fruit ?if you like. The less you do it the better weight loss will be. 6. One full-size fork is what can be scooped on the fork without falling aside and not what can be bit with the fork. Use regular forks like those you find in a typical restaurant. 7.? Please send me weight measurements from your body composition scale as soon as possible and then once a week. Always include your diet and exercise plan. The best time to weigh yourself is first thing in the morning after going to the bathroom. 8. The best choice for exercise would be to join [employer] gym near your home. Follow the directions from the edward. Alternatively start walking outside daily, tracking calories with a goal of 300 calories per day, daily. You can download the edward AmberWave which can track your time, distance and calories while walking outside. You press start in the edward when you start and then stop when you are finished. 9.?Goal is to lose at least 1.5-2 lbs per week, and about 10% before surgery, which is about 23 pounds 10. Please follow the diet plan exactly without any change. If you don't like something about the plan or you feel hungry you need to communicate with me so I can help you revise the plan. My cell phone number to communicate with me by text is [phone] Patient is morbidly obese and is not considered stable at this time.?I spent a total of 70 minutes reviewing/updating records, examining the patient and counseling the patient on weight management as detailed above. Orders: Orders Insulin Today E66.01 - Morbid (severe) obesity due to excess calories, E78.5 - Hyperlipidemia, unspecified, I10 - Essential (primary) hypertension Lipid Panel Today E66.01 - Morbid (severe) obesity due to excess calories, E78.5 - Hyperlipidemia, unspecified, I10 - Essential (primary) hypertension IRON PROFILE Today E66.01 - Morbid (severe) obesity due to excess calories, E78.5 - Hyperlipidemia, unspecified, I10 - Essential (primary) hypertension Comprehensive Met. Panel Today E66.01 - Morbid (severe) obesity due to excess calories, E78.5 - Hyperlipidemia, unspecified, I10 - Essential (primary) hypertension Vitamin B12 and Folate Today E66.01 - Morbid (severe) obesity due to excess calories, E78.5 - Hyperlipidemia, unspecified, I10 - Essential (primary) hypertension Zinc Today E66.01 - Morbid (severe) obesity due to excess calories, E78.5 - Hyperlipidemia, unspecified, I10 - Essential (primary) hypertension C Reactive Protein Today E66.01 - Morbid (severe) obesity due to excess calories, E78.5 - Hyperlipidemia, unspecified, I10 - Essential (primary) hypertension Vitamin B1 Today E66.01 - Morbid (severe) obesity due to excess calories, E78.5 - Hyperlipidemia, unspecified, I10 - Essential (primary) hypertension TSH reflex Free T4 Today E66.01 - Morbid (severe) obesity due to excess calories, E78.5 - Hyperlipidemia, unspecified, I10 - Essential (primary) hypertension Ferritin Today E66.01 - Morbid (severe) obesity due to excess calories, E78.5 - Hyperlipidemia, unspecified, I10 - Essential (primary) hypertension XR chest 2V Today E66.01 - Morbid (severe) obesity due to excess calories, E78.5 - Hyperlipidemia, unspecified, I10 - Essential (primary) hypertension ECG 12 lead EKG Today E66.01 - Morbid (severe) obesity due to excess calories, E78.5 - Hyperlipidemia, unspecified, I10 - Essential (primary) hypertension FL upper GI w air Today E66.01 - Morbid (severe) obesity due to excess calories, E78.5 - Hyperlipidemia, unspecified, I10 - Essential (primary) hypertension Hemoglobin A1c Today E66.01 - Morbid (severe) obesity due to excess calories, E78.5 - Hyperlipidemia, unspecified, I10 - Essential (primary) hypertension Complete Blood Count Auto Diff Today E66.01 - Morbid (severe) obesity due to excess calories, E78.5 - Hyperlipidemia, unspecified, I10 - Essential (primary) hypertension Vitamin A Today E66.01 - Morbid (severe) obesity due to excess calories, E78.5 - Hyperlipidemia, unspecified, I10 - Essential (primary) hypertension Vitamin D 25-OH Total Today E66.01 - Morbid (severe) obesity due to excess calories, E78.5 - Hyperlipidemia, unspecified, I10 - Essential (primary) hypertension US abdomen comp w elastography Today E66.01 - Morbid (severe) obesity due to excess calories, E78.5 - Hyperlipidemia, unspecified, I10 - Essential (primary) hypertension Referrals Behavioral Health Referral E66.01 - Morbid (severe) obesity due to excess calories, E78.5 - Hyperlipidemia, unspecified, I10 - Essential (primary) hypertension
[2024-02-28 14:40] VITALS: BP 135/64; PULSE 95; TEMP 36.3; O2SAT 95; BMI 48.5
== END 2024-02-28 15:28 | disposition home or self-care (01) ==
PROVIDERS: PCP Family Medicine; Visit Provider Physician Assistant Surgical
DX: E66.01 Morbid (severe) obesity due to excess calories (principal)
CPT/HCPCS: 99205

== ENCOUNTER 2024-03-27 10:56 | Outpatient (REF) | payer MEDICAID, SELFPAY ==
--- NOTE | ~2024-03-27 | US_ITS ---
EXAMINATION: US COMPLETE ABDOMEN WITH LIVER ELASTOGRAPHY CLINICAL INFORMATION: Obesity COMPARISON: Prior ultrasound from December 13, 2022 TECHNIQUE: Real-time imaging of the abdominal viscera. Noninvasive ultrasound liver fibrosis assessment is performed using Irma ElastPQ point quantification shear wave elastography (pSWE) with a C5-2 MHz transducer. Multiple elastography samples are obtained. FINDINGS: PANCREAS: Pancreas not well visualized obscured by bowel gas. ABDOMINAL AORTA: Visualized portion of the aorta proximally normal, mid and distal aorta obscured by bowel gas. INFERIOR VENA CAVA: Visualized portions are normal. LIVER: Normal. The liver demonstrates normal size, contour and echogenicity. No focal lesion or intrahepatic biliary duct dilatation. The right lobe measures 20 cm in length. The left lobe measures 14 cm in length. Portal flow is toward Shear wave liver elastography median stiffness is 1.25 m/s (reference: normal median stiffness is 1.3 m/s or less). IQR/median stiffness to assess sampling precision is 0.38 (reference: good quality data set is IQR/median stiffness of 0.15 or less). GALLBLADDER: Normal. The gallbladder is physiologically distended without evidence of stones, sludge, polyps, wall thickening or pericholecystic fluid. COMMON BILE DUCT: Normal in caliber measuring 0.5 cm in diameter. RIGHT KIDNEY: Normal. No hydronephrosis. No renal calculi or focal parenchymal lesions. The kidney measures 11.5 cm in maximum dimension. LEFT KIDNEY: Normal. No hydronephrosis. No renal calculi or focal parenchymal lesions. The kidney measures 12.7 cm in maximum dimension. SPLEEN: Normal. The spleen measures 8.6 cm in maximum dimension. FREE FLUID: None. US/US abdomen comp w elastography IMPRESSION: 1. Pancreas and retroperitoneal structures are partially obscured otherwise normal. 2. Liver elastography: Although measurements appear to rule out compensated advanced chronic liver disease, there is statistical variability of the sampling which decreases accuracy. REFERENCE: Society of Radiologists in Ultrasound Liver Stiffness Thresholds (2019): LIVER STIFFNESS THRESHOLDS: *Liver Stiffness equal or less than 1.3 m/s: High probability of being normal. *Liver Stiffness less than 1.7 m/s: In the absence of other known clinical signs, rules out compensated advanced chronic liver disease. *Liver Stiffness 1.7-2.1 m/s: Suggestive of compensated advanced chronic liver disease but need further test for confirmation. *Liver Stiffness over 2.1 m/s: Rules in compensated advanced chronic liver disease. *Liver Stiffness over 2.4 m/s: Suggestive of clinically significant portal hypertension. QUALITY OF DATA SET: *IQR/Median value equal or less than 0.15 implies a quality data set. *IQR/Median value over 0.15 implies a poor quality data set. SIGNIFICANT CHANGE FROM PRIOR EXAM: Significant change if liver stiffness measurement is 10% or greater from prior exam. OTHER CONSIDERATIONS: The stage of liver fibrosis may be overestimated in the setting of acute hepatitis, liver inflammation, elevated liver function tests, hepatic vascular congestion, obstructive cholestasis, non-fasting state, and infiltrative diseases such as amyloidosis and lymphoma. In some patients with NAFLD, the liver stiffness thresholds for compensated advanced chronic liver disease may be lower. In causes other than viral hepatitis and NAFLD, liver stiffness thresholds are not well established. Electronically signed by: Moe Maier MD 05/09/2024 07:36 AM [facility]
--- NOTE | ~2024-03-27 | XR_ITS ---
EXAMINATION: XR CHEST 3 VIEWS CLINICAL INFORMATION: Morbid (severe) obesity due to excess calories E66.01. COMPARISON: XR Chest 02/26/2024 TECHNIQUE: PA and lateral views of the chest were obtained. FINDINGS: No significant abnormality is noted involving the heart, lungs, mediastinum, bony thorax or soft tissues. XR/XR chest 2V IMPRESSION: Unremarkable examination. Electronically signed by: Dustin Beltran MD 06/07/2024 01:12 PM [facility]
== END 2024-03-27 10:57 | disposition home or self-care (01) ==
LOC: HO.US 10:56
PROVIDERS: PCP Family Medicine; Visit Provider Physician Assistant Surgical
DX: E66.01 Morbid (severe) obesity due to excess calories (principal); E78.5 Hyperlipidemia, unspecified; I10 Essential (primary) hypertension
CPT/HCPCS: 71046; 76700; 76981

== ENCOUNTER 2024-05-22 08:46 | Outpatient (REF) | payer MEDICAID, SELFPAY ==
--- NOTE | ~2024-05-22 | FL_ITS ---
EXAMINATION: XR FLUOROSCOPY UPPER GI WITH AIR CLINICAL INFORMATION: Preoperative evaluation prior to bariatric surgery. Dysphagia. COMPARISON: Barium swallow 2021 . TECHNIQUE: Fluoroscopic air contrast upper GI examination was performed utilizing standard techniques with thin and thick barium and effervescent granules. Numerous spot images were obtained. FINDINGS: Lateral cine images of the oropharynx and hypopharynx demonstrate normal swallow mechanism with normal epiglottic inversion and soft palate elevation. There is trace laryngeal penetration with thick barium. No tracheal penetration, glottic or subglottic aspiration identified. No nasopharyngeal reflux present. Hypopharyngeal structures appear normal without evidence of mass or diverticulum. There was no significant cricopharyngeal achalasia. Dual and single contrast images of the esophagus demonstrate normal caliber, contour, and mucosal pattern. No evidence of stricture, mass, or ulcerations identified. Esophageal peristalsis was normal. A very small type I hiatal hernia is present. No significant gastroesophageal reflux was seen during the course of the examination and on reflux views. Dual contrast and single contrast images of the stomach demonstrated a normal contour. The gastric rugal folds have a mildly thickened appearance, suggestive of gastritis. No masses or ulcerations are seen. Contrast freely passed into the gastric antrum and duodenal bulb without delay. Single and air-contrast images of the duodenal bulb demonstrate no abnormality. The duodenal sweep has a normal appearance, course, and mucosal fold appearance. The imaged proximal jejunum has a normal fold pattern and caliber. FLUOROSCOPY TIME: 3 minutes 13 seconds Number of Spot Images: 4 Number of Cine: 12 DOSE AREA PRODUCT: 2516 uGy-m2 (microgray-meter squared) FL/FL upper GI w air w Ba Swallow IMPRESSION: 1. Trace laryngeal penetration with thick barium. 2. Very small type I hiatal hernia. 3. Mildly thickened appearance of the gastric rugal folds, suggestive of gastritis. This procedure was performed by Vinay Eldridge PA-C, and supervised by Dr. Barba Electronically signed by: Nicolas Barba MD 05/22/2024 03:46 PM [facility]
== END 2024-05-22 08:47 | disposition home or self-care (01) ==
LOC: HO.XRAY 08:46
PROVIDERS: PCP Family Medicine; Visit Provider Hospitalist
DX: E66.01 Morbid (severe) obesity due to excess calories (principal); E78.5 Hyperlipidemia, unspecified; I10 Essential (primary) hypertension
CPT/HCPCS: 74246

== ENCOUNTER → 2024-05-22 08:49 | Outpatient (BNV) | payer MEDICAID, SELFPAY | PROVIDERS: PCP Family Medicine; Visit Provider Physician Assistant Surgical | DX: K21.9 Gastro-esophageal reflux disease without esophagitis (principal) | CPT/HCPCS: 74246 ==

== ENCOUNTER 2024-06-18 15:26 | Emergency (ER) | payer MEDICAID, SELFPAY ==
--- NOTE | ~2024-06-18 | XR_ITS ---
EXAMINATION: XR CHEST CLINICAL INFORMATION: fever, cough COMPARISON: 03/27/2024 TECHNIQUE: 2 views of the chest were obtained. FINDINGS: No significant abnormality is noted involving the heart, lungs, mediastinum, bony thorax or soft tissues. XR/XR chest 2V IMPRESSION: No acute disease or interval change Electronically signed by: Clayton Jaeger MD 06/18/2024 04:40 PM [facility]
[2024-06-18 15:45] VITALS: BP 138/66; PULSE 124; RESP 22; TEMP 38.6; O2SAT 95; BMI 44.1
--- NOTE | 2024-06-18 15:48 | ED_ITS ---
HPI - General Adult General Chief complaint: General Medical Stated complaint: Headache/Fever/Vomiting Time Seen by Provider: 06/18/24 17:17 Source: patient, RN notes reviewed, old records reviewed and site interpreter Mode of arrival: ambulatory Limitations: language barrier History of Present Illness ED Provider: Mitzi HPI narrative: 53-year-old female presents for evaluation of fever, headache, body aches. She also complains of a sore throat She endorses nausea and vomiting. Denies any sick contacts Denies any shortness of breath but the patient is coughing. She is not taking any medications to help alleviate her symptoms Denies any recent travel. No chest pain. No other complaints or concerns at this time Related Data Home Medications ?Medication ?Instructions ?Recorded ?Confirmed docusate sodium 100 mg capsule 100 mg PO DAILY PRN Constipation 03/26/20 02/28/24 (Colace) lorazepam 2 mg tablet (Ativan) 2 mg PO BEDTIME PRN Anxiety 03/26/20 02/28/24 zolpidem 10 mg tablet (Ambien) 5 mg PO BEDTIME PRN Anxiety 03/26/20 02/28/24 tramadol 50 mg tablet 50 mg PO BID PRN Pain 05/20/20 02/28/24 CPAP (CPAP Machine/Device) #1 ea 12/24/20 02/28/24 cetirizine 10 mg tablet 10 mg PO DAILY 07/19/21 02/28/24 duloxetine 60 mg capsule,delayed 60 mg PO DAILY 07/19/21 02/28/24 release fluticasone propionate 50 2 spray intranasal DAILY 07/19/21 02/28/24 mcg/actuation nasal spray,suspension lisinopril 5 mg tablet 5 mg PO DAILY 07/19/21 02/28/24 albuterol sulfate 2.5 mg/3 mL 1 amp inhalation Q4H PRN Wheezing 01/17/22 02/28/24 (0.083 %) solution for nebulization gabapentin 400 mg capsule 400 cap PO BID 01/17/22 02/28/24 multivitamin-iron sulfate 15 1 tab PO DAILY 01/17/22 02/28/24 mg-folic acid 400 mcg tablet (Tab-A-Colton Multivitamin w-iron) naloxone 4 mg/actuation nasal spray 1 spray intranasal ONCE PRN Opioid 01/17/22 02/28/24 Overdose nebulizers 07/18/23 02/28/24 Previous Rx's ?Medication ?Instructions ?Recorded sumatriptan succinate 50 mg tablet 50 mg PO Q2-4H PRN migraine 11/05/20 headache #10 tabs albuterol sulfate 90 mcg/actuation 1 inh inhalation QID PRN shortness 12/28/20 aerosol inhaler of breath or wheezing #8.5 grams polyethylene glycol 3350 17 gram 17 g PO DAILY #30 ea 07/19/21 oral powder packet (Miralax) cholecalciferol (vitamin D3) 50 50 mcg PO DAILY #30 tabs 07/26/21 mcg (2,000 unit) tablet sennosides 8.6 mg tablet (Natural 8.6 mg PO BEDTIME constipation #30 11/17/21 Senna Laxative) tabs fluticasone fur. 200 mcg-umeclid 1 inh inhalation DAILY 30 days #60 11/19/21 62.5 mcg-vilant 25 mcg ea inhalat.powder (Trelegy Ellipta) ibuprofen 600 mg tablet 600 mg PO Q8H PRN pain 14 days #30 01/17/22 tabs famotidine 40 mg tablet 40 mg PO BEDTIME #30 tabs 05/27/22 acetaminophen 500 mg tablet 500 mg PO Q6H PRN fever or pain 06/24/23 #14 tabs ibuprofen 600 mg tablet 600 mg PO Q8H PRN fever or pain 06/24/23 #14 tabs doxycycline monohydrate 100 mg 100 mg PO BID 14 days #28 tabs 07/18/23 tablet montelukast 10 mg tablet 10 mg PO BEDTIME 30 days #30 tabs 07/18/23 (Singulair) umeclidinium 62.5 mcg-vilanterol 1 inh inhalation DAILY #60 ea 12/06/23 25 mcg/actuation powdr for inhalation (Anoro Ellipta) amlodipine 10 mg tablet 10 mg PO DAILY #90 tabs 12/08/23 ezetimibe 10 mg tablet 10 mg PO DAILY #90 tabs 12/08/23 rosuvastatin 40 mg tablet 40 mg PO DAILY #90 tabs 12/08/23 roflumilast 250 mcg tablet 250 mcg PO DAILY 30 days #30 tabs 01/23/24 (Daliresp) fenofibrate 54 mg tablet 54 mg PO DAILY #90 tabs 05/21/24 evolocumab 140 mg/mL subcutaneous 140 mg subcut Q2W #2 mL 06/04/24 pen injector (Dominic Sunshine) ibuprofen 600 mg tablet 600 mg PO Q6H PRN pain #20 tabs 06/18/24 ondansetron 4 mg disintegrating 4 mg PO Q8H PRN nausea and 06/18/24 tablet vomiting #20 tabs Allergies Allergy/AdvReac Type Severity Reaction Status Date / Time loratadine [From CLARITIN] Allergy Mild CHILLS AND Verified 06/18/24 15:46 DIFF BREATHING Review of Systems 2 Constitutional: Constitutional: Reports body ache(s), Reports chills, Reports fever(s), Reports headache(s), Reports malaise, Reports poor appetite and Reports weakness Eyes: Eyes: Denies itchy eyes ENT: Reports headache(s) and Reports sore throat Cardiovascular: Cardiovascular: Denies chest pain and Denies dyspnea Respiratory: Respiratory: Reports cough and Denies dyspnea Gastrointestinal: Gastrointestinal: Denies abdominal pain, Reports nausea and Reports vomiting Musculoskeletal: Musculoskeletal: Denies back pain Integumentary/Breasts: Skin/Breast: Denies rash Neurologic: Reports headache(s) and Reports weakness Allergic/Immunologic: Allergic/Immunologic: Denies itchy eyes PMFSH Past Medical History Medical History Epigastric pain Pre-op chest exam Chronic restrictive lung disease NAM treated with BiPAP Asthma-COPD overlap syndrome Sleep apnea Fibromyalgia Hypertension Fatty liver Gall bladder polyp Acid reflux Obesity (BMI 30-39.9) Coronary artery disease Hyperlipidemia Surgical History History of partial hysterectomy History of esophagogastroduodenoscopy History of endometrial ablation Hx of tubal ligation History of cardiac cath Family History Family History Paternal Grandfather No problems noted. Father History of cancer Lung cancer Mother Heart disease Asthma Social History Social History Household Members: Family and Children Housing: House Do you presently have visiting nurse or other home services: No Alcohol intake: never Patient Tobacco Use Status: Former Tobacco user Tobacco use type: Cigarette Years Smoked: 5 years Smoked in Last 30 Days: No Second Hand Smoke Exposure: No Use of substances other than those prescribed or required for medical reasons: No Advance Directives: No Advance Directives Information Provided: Yes Patient : No service: No Current occupational status: disabled Sexual orientation: Straight/Heterosexual Gender identity: Female Physical Exam ED Vital Signs: Vital Signs - 24 hr 06/18/24 15:45 Temperature 101.4 F H Pulse Rate 124 H Respiratory Rate 22 H Blood Pressure 138/66 Pulse Oximetry 95 Oxygen Delivery Method Room Air BMI result Body Mass Index 44.1 Const General: healthy appearing, comfortable, no acute distress, alert and awake Nutritional Appearance: well nourished Orientation/consciousness: patient oriented x3 HENMT Other: Mildly erythematous retropharynx without exudates or tonsillar hypertrophy. Head: Yes normocephalic and Yes atraumatic Eyes Eyelids: Yes eyelids normal Conjunctivae: conjunctivae normal Sclerae: sclerae normal Corneas: corneas normal Pupils: Equal, round and reactive pupils present EOM: EOMs intact bilaterally Neck Neck: Yes full ROM Resp Effort & Inspection: normal respiratory effort, able to speak in complete sentences, no audible wheezes and not labored Auscultation: clear to auscultation bilaterally Cardio Rate: regular rate Rhythm: regular rhythm GI Inspection: No distended Palpation (GI): Soft to palpation, not firm, nontender, no guarding and not rigid Skin General skin exam: elasticity normal Neuro General: patient oriented x3 Cranial nerves: Yes CN's II-XII intact bilaterally, Yes Equal, round and reactive pupils present and Yes Bilaterally intact EOM present Cognition (Neuro): normal cognition Extrem Other: Moving all extremities well without any obvious deformities Course Course Course Narrative: This is an RME: Additional HPI, ROS, PE not included below will be deferred to primary provider. RME assessment and note performed by: Anushka Dozier PA-C This is a 66-isvz-bhm-female, with a hx of NAM, asthma, COPD, HTN, CAD, HLD, who presents to the ER with complaints of headache, fevers, sore throat, cough, nausea, and vomiting x 3 days. On arrival, pt with temperature of 101.4, resp at 22 and pulse 124. Pt last had tylenol at 2pm. Plan: Labs, EKG, chest xray, viral swabs, ibuprofen 800mg PO in triage Medications Administered Discontinued Medications Generic Name Dose Route Start Last Admin Trade Name Martin PRN Reason Stop Dose Admin Acetaminophen 975 mg 06/18/24 17:28 06/18/24 17:37 Acetaminophen 325 Mg Tablet PO 06/18/24 17:29 975 mg ONCE ONE Administration Ibuprofen 800 mg 06/18/24 15:48 06/18/24 15:50 Ibuprofen 800 Mg Tablet PO 06/18/24 15:49 800 mg ONCE ONE Administration Medical Decision Making Medical Decision Making [facility] Narrative: 53-year-old female presents for evaluation of fever, body aches. She was given ibuprofen in triage for her temp of a 102.4?, she is somewhat tachycardic. Her chest x-ray is clear, laboratory values are reassuring, she has no leukocytosis but does have a left shift, she had test positive for influenza and this explains the left shift. There are no significant chemistry abnormalities. She has a slight increase in AST and ALT which again can be attributed to her viral illness. We will recheck vital signs after antipyretics. The patient is well outside the window for Tamiflu treatment Differential Diagnosis Differential Diagnoses: The differential diagnosis associated with the presentation includes Influenza COVID-19 RSV Bronchitis Pneumonia Strep pharyngitis Lab Data [facility] Lab Attestation statement: I reviewed the patient's lab results. As above 06/18/24 16:03 06/18/24 16:03 Labs: Lab Results 06/18/24 Range/Units 16:03 WBC 5.7 (4.8-10.8) X10*3/uL RBC 4.22 (4.20-5.50) X10*6/uL Hgb 13.1 (12.0-16.0) g/dl Hct 37.8 (37.0-47.0) % MCV 89.6 (80.0-98.0) fL MCH 31.0 (27.0-33.0) pg MCHC 34.7 (31.0-35.0) g/dl RDW 13.3 (11.0-16.0) % Plt Count 217 (160-400) X10*3/uL MPV 10.6 (9.4-12.3) fL Immature Gran % (Auto) 0.2 (0.0-0.4) % Neut % (Auto) 73.4 H (45-73) % Lymph % (Auto) 12.2 L (20-40) % [place] % (Auto) 13.8 H (2-11) % Eos % (Auto) 0.2 (0-4) % Baso % (Auto) 0.2 (0-2) % Lymph # (Auto) 0.7 L (1.2-4.9) X10*3/uL [place] # (Auto) 0.8 (0.1-1.2) X10*3/uL Eos # (Auto) 0.0 (0.0-0.4) X10*3/uL Baso # (Auto) 0.0 (0.0-0.2) X10*3/uL Abs Immat Gran (auto) 0.01 (0.00-0.03) X10*3/uL Absolute Neuts (auto) 4.2 (2.0-8.3) x10*3/uL Absolute Nucleated RBC 0.000 (0.0-0.012) X10*3/uL Nucleated RBC % (auto) 0.0 (0.0-0.2) /100WBC Sodium 138 (135-145) mmol/L Potassium 3.8 (3.3-5.1) mmol/L Chloride 104 (96-108) mmol/L Carbon Dioxide 26 (22-29) mmol/L Anion Gap 12 (12-20) BUN 9 (9-16) mg/dL Creatinine 0.82 (0.5-1.4) mg/dL Estim Creat Clear Calc 86.5 Estimated GFR > 60 Random Glucose 110 (60-115) mg/dL Lactic Acid 1.2 (0.5-2.0) mmol/L Calcium 9.6 D (8.4-10.2) mg/dL Magnesium 2.0 (1.6-2.6) mg/dL Total Bilirubin 0.3 (0.0-1.0) mg/dL Direct Bilirubin 0.1 (0.0-0.5) mg/dL AST 53 H (5-31) U/L ALT 50 H (0-31) U/L Alkaline Phosphatase 81 (39-117) U/L Troponin I High Sens < 2.7 (<3.5-17.0) ng/L Total Protein 8.2 H (6.5-8.0) g/dL Albumin 4.7 (3.5-5.0) g/dL Lipase 15 (8-78) U/L Influenza Type A (PCR) POSITIVE A (Negative) Influenza Type B (PCR) NEGATIVE (Negative) RSV RNA Qual (PCR) NEGATIVE (Negative) SARS-CoV-2 RNA (RT-PCR) NEGATIVE (Negative) S. pyogenes GrpA MIRIAM Negative (Negative) Independent Interpretation I performed an independent interpretation of an: Plain X-Ray (No focal infiltrates) Radiology Impression Discussion of test interpretation with radiology: I have reviewed the radiologist's reading. Radiologist Impression: FINDINGS: No significant abnormality is noted involving the heart, lungs, mediastinum, bony thorax or soft tissues. XR/XR chest 2V IMPRESSION: No acute disease or interval change Electronically signed by: Clayton Jaeger MD 06/18/2024 04:40 PM [facility] Discharge Plan Discharge Clinical Impression: Influenza A Patient Disposition: Home, Self-Care Instructions: Influenza (ED) Additional Instructions: You tested positive for influenza A. The remainder of your workup was reassuring. Use ibuprofen/Tylenol for fevers, body aches. Take Zofran as needed for nausea and vomiting Drink lots of fluids, small sips at a time Follow-up with your primary doctor, return for new or worsening symptoms Prescriptions: New ibuprofen 600 mg tablet 600 mg PO Q6H PRN (Reason: pain) Qty: 20 0RF ondansetron 4 mg tablet,disintegrating 4 mg PO Q8H PRN (Reason: nausea and vomiting) Qty: 20 0RF No Action cholecalciferol (vitamin D3) 50 mcg (2,000 unit) tablet 50 mcg PO DAILY Qty: 30 6RF sennosides [Natural Senna Laxative] 8.6 mg tablet 8.6 mg PO BEDTIME Qty: 30 3RF famotidine 40 mg tablet 40 mg PO BEDTIME Qty: 30 3RF montelukast [Singulair] 10 mg tablet 10 mg PO BEDTIME 30 Days Qty: 30 11RF Anoro Ellipta 62.5-25 mcg/actuation blister with device 1 inh inhalation DAILY Qty: 60 11RF amlodipine 10 mg tablet 10 mg PO DAILY Qty: 90 3RF ezetimibe 10 mg tablet 10 mg PO DAILY Qty: 90 3RF rosuvastatin 40 mg tablet 40 mg PO DAILY Qty: 90 3RF roflumilast [Daliresp] 250 mcg tablet 250 mcg PO DAILY 30 Days Qty: 30 11RF fenofibrate 54 mg tablet 54 mg PO DAILY Qty: 90 3RF Repatha SureClick 140 mg/mL pen injector 140 mg subcut Q2W Qty: 2 11RF sumatriptan succinate 50 mg tablet 50 mg PO Q2-4H PRN (Reason: migraine headache) Qty: 10 0RF Rx Instructions: do not exceed 4 doses per 24 hrs tramadol 50 mg Tablet 50 mg PO BID PRN (Reason: Pain) albuterol sulfate 90 mcg/actuation HFA aerosol inhaler 1 inh inhalation QID PRN (Reason: shortness of breath or wheezing) Qty: 8.5 0RF albuterol sulfate 2.5 mg /3 mL (0.083 %) solution for nebulization 1 amp inhalation Q4H PRN (Reason: Wheezing) gabapentin 400 mg capsule 400 cap PO BID naloxone 4 mg/actuation spray,non-aerosol 1 spray intranasal ONCE PRN (Reason: Opioid Overdose) Tab-A-Colton Multivitamin w-iron 15 mg iron- 400 mcg tablet 1 tab PO DAILY acetaminophen 500 mg tablet 500 mg PO Q6H PRN (Reason: fever or pain) Qty: 14 0RF ibuprofen 600 mg tablet 600 mg PO Q8H PRN (Reason: fever or pain) Qty: 14 0RF lorazepam [Ativan] 2 mg tablet 2 mg PO BEDTIME PRN (Reason: Anxiety) zolpidem [Ambien] 10 mg tablet 5 mg PO BEDTIME PRN (Reason: Anxiety) docusate sodium [Colace] 100 mg capsule 100 mg PO DAILY PRN (Reason: Constipation) (DME) CPAP Machine/Device Device See Rx Instructions .ROUTE .MEDSUPPLY Qty: 1 Rx Instructions: As directed duloxetine 60 mg capsule,delayed release(DR/EC) 60 mg PO DAILY fluticasone propionate 50 mcg/actuation spray,suspension 2 spray intranasal DAILY lisinopril 5 mg tablet 5 mg PO DAILY cetirizine 10 mg tablet 10 mg PO DAILY polyethylene glycol 3350 [Miralax] 17 gram powder in packet 17 g PO DAILY Qty: 30 5RF Trelegy Ellipta 200-62.5-25 mcg blister with device 1 inh inhalation DAILY 30 Days Qty: 60 12RF ibuprofen 600 mg tablet 600 mg PO Q8H PRN (Reason: pain) 14 Days Qty: 30 0RF (DME) nebulizers Misc See Rx Instructions .Route Rx Instructions: As directed doxycycline monohydrate 100 mg tablet 100 mg PO BID 14 Days Qty: 28 0RF Print Language: French
--- NOTE | 2024-06-18 15:49 | ECG_ITS ---
Test Reason : tachycardia Blood Pressure : / mmHG Vent. Rate : 124 BPM Atrial Rate : 124 BPM P-R Int : 136 ms QRS Dur : 072 ms QT Int : 312 ms P-R-T Axes : 067 002 091 degrees QTc Int : 448 ms Sinus tachycardia Cannot rule out Anterior infarct (cited on or before 23-JUN-2023) Abnormal ECG When compared with ECG of 26-FEB-2024 14:36, Vent. rate has increased BY 42 BPM Referred By: Anushka Dozier Electronically Signed By:Ab Gallegos
[2024-06-18] MEDS: Ibuprofen 800 MG TABLET PO (15:50)
[2024-06-18 16:11] LABS: MANUAL DIFF FLAG NO
[2024-06-18 16:13] LABS: Basophils Percent Auto 0.2 % (0-2); Eosinophils Percent Auto 0.2 % (0-4); Hematocrit 37.8 % (37.0-47.0); Hemoglobin 13.1 g/dl (12.0-16.0); Imm Gran Abs Auto 0.01 X10*3/uL (0.00-0.03); Imm Gran Pct Auto 0.2 % (0.0-0.4); Lymphocytes Absolute Auto 0.7 X10*3/uL (1.2-4.9); Lymphocytes Percent Auto 12.2 % (20-40); Mean Corpuscular HGB Conc 34.7 g/dl (31.0-35.0); Mean Corpuscular Volume 89.6 fL (80.0-98.0); Mean Platelet Volume 10.6 fL (9.4-12.3); Monocytes Absolute Auto 0.8 X10*3/uL (0.1-1.2); Monocytes Percent Auto 13.8 % (2-11); Neutrophils Absolute Auto 4.2 x10*3/uL (2.0-8.3); Neutrophils Percent Auto 73.4 % (45-73); Platelet Count 217 X10*3/uL (160-400); Red Blood Count 4.22 X10*6/uL (4.20-5.50); Red Cell Distribution Width 13.3 % (11.0-16.0); White Blood Count 5.7 X10*3/uL (4.8-10.8)
[2024-06-18 16:21] LABS: IDNOW Serial# 58CA691E; Strep A Nucleic Acid Negative (Negative)
[2024-06-18 16:28] LABS: Lactic Acid 1.2 mmol/L (0.5-2.0)
[2024-06-18 16:29] LABS: Alanine Aminotransferase 50 U/L (0-31); Albumin Level 4.7 g/dL (3.5-5.0); Alkaline Phosphatase 81 U/L (39-117); Anion Gap 12 (12-20); Aspartate Amino Transferase 53 U/L (5-31); Bilirubin Direct 0.1 mg/dL (0.0-0.5); Bilirubin Total 0.3 mg/dL (0.0-1.0); Blood Urea Nitrogen 9 mg/dL (9-16); Calcium 9.6 mg/dL (8.4-10.2); Carbon Dioxide 26 mmol/L (22-29); Chloride 104 mmol/L (96-108); Creatinine Clr Calc Pharmacy 86.5; Estimated Glomerular Filt Rate > 60; Glucose Random 110 mg/dL (60-115); Lipase 15 U/L (8-78); Potassium 3.8 mmol/L (3.3-5.1); Sodium 138 mmol/L (135-145); Total Protein 8.2 g/dL (6.5-8.0)
[2024-06-18 16:37] LABS: Troponin-I High Sensitivity < 2.7 ng/L (<3.5-17.0)
[2024-06-18 17:00] LABS: Influenza A PCR POSITIVE (Negative); Influenza B PCR NEGATIVE (Negative); Resp Syncy Virus RNA Qual PCR NEGATIVE (Negative); SARS COV2 PCR INHOUSE NEGATIVE (Negative)
[2024-06-18] MEDS: Acetaminophen 325 MG TABLET 975 MG PO (17:37)
[2024-06-18 18:11] VITALS: TEMP 37.6
[2024-06-18 18:12] VITALS: TEMP 37.6
[2024-06-18 18:41] VITALS: BP 135/81; PULSE 112; RESP 20; TEMP 37.6; O2SAT 95
== END 2024-06-18 18:47 | disposition home or self-care (01) ==
PROVIDERS: Physician Assistant Medical; Emergency Provider Emergency Medicine; PCP Family Medicine
DX: J10.1 Influenza due to other identified influenza virus with other respiratory manifestations (principal); R51.9 Headache, unspecified; R50.9 Fever, unspecified; R00.0 Tachycardia, unspecified; R11.2 Nausea with vomiting, unspecified; R05.9 Cough, unspecified; R94.31 Abnormal electrocardiogram [ECG] [EKG]; M79.10 Myalgia, unspecified site; Z03.818 Encounter for observation for suspected exposure to other biological agents ruled out; Z87.891 Personal history of nicotine dependence; Z79.899 Other long term (current) drug therapy
CPT/HCPCS: 0241U; 71046; 80048; 80076; 83605; 83690; 83735; 84484; 85025; 87040; 87651; 93005; 99283; 99285

== ENCOUNTER → 2024-06-18 15:49 | Outpatient (BNV) | payer MEDICAID, SELFPAY | PROVIDERS: Emergency Provider Emergency Medicine; PCP Family Medicine; Visit Provider Internal Medicine Cardiovascular Disease | DX: R00.0 Tachycardia, unspecified (principal) | CPT/HCPCS: 93010 ==

== ENCOUNTER 2024-09-05 11:06 | Outpatient (REF) | payer MEDICAID, SELFPAY ==
--- NOTE | ~2024-09-05 | XR_ITS ---
EXAMINATION: XR HAND, RIGHT CLINICAL INFORMATION: R thumb pain and swelling x 1 mos COMPARISON: None available. TECHNIQUE: Four views of the right hand/thumb. FINDINGS: The bones and soft tissues are normal. No fracture. Alignment is anatomic. Joint spaces are maintained. No erosions or soft tissue calcifications. XR/XR hand RT min 3V IMPRESSION: Normal right hand and thumb. Electronically signed by: Nicolas Barba MD 09/05/2024 12:46 PM EDT
[2024-09-05 13:32] LABS: Hematocrit 39.6 % (37.0-47.0); Hemoglobin 13.6 g/dl (12.0-16.0); Mean Corpuscular HGB Conc 34.3 g/dl (31.0-35.0); Mean Corpuscular Hemoglobin 30.7 pg (27.0-33.0); Mean Corpuscular Volume 89.4 fL (80.0-98.0); Mean Platelet Volume 11.2 fL (9.4-12.3); Platelet Count 268 X10*3/uL (160-400); Red Blood Count 4.43 X10*6/uL (4.20-5.50); Red Cell Distribution Width 13.2 % (11.0-16.0); White Blood Count 6.4 X10*3/uL (4.8-10.8)
[2024-09-05 14:00] LABS: Estimated Average Glucose 126 mg/dL; Total Hemoglobin (HGBA1C) 3496.2188 umol/L
[2024-09-05 14:01] LABS: Alanine Aminotransferase 33 U/L (0-31); Albumin Level 4.5 g/dL (3.5-5.0); Alkaline Phosphatase 84 U/L (39-117); Anion Gap 12 (12-20); Aspartate Amino Transferase 26 U/L (5-31); Bilirubin Direct 0.1 mg/dL (0.0-0.5); Bilirubin Total 0.4 mg/dL (0.0-1.0); Blood Urea Nitrogen 12 mg/dL (9-16); Calcium 9.7 mg/dL (8.4-10.2); Carbon Dioxide 24 mmol/L (22-29); Chloride 108 mmol/L (96-108); Cholesterol 273 mg/dL (<200); Estimated Glomerular Filt Rate > 60; Glucose Random 107 mg/dL (60-115); HDL Cholesterol 44 mg/dL (>40); LDL Cholesterol Calculated 161 mg/dL (<100); Potassium 3.9 mmol/L (3.3-5.1); Sodium 140 mmol/L (135-145); Triglycerides 344 mg/dL (<150)
[2024-09-05 14:11] LABS: Microalbum/Creatinine Ratio Ur 25.3 ug/mg cr (<30)
[2024-09-05 14:16] LABS: Free T4 (Free Thyroxine) 1.05 ng/dL (0.71-1.85); Thyroid Stimulating Hormone 2.68 uIU/mL (0.32-4.0); Vitamin D 25-OH Total 25.6 ng/mL (>30)
--- OUTSIDE RECORDS SUMMARY | 2024-09-05 14:17 | XMS_ITS ---
Author Name [facility] Organization Unknown Encounters Encounter Type Encounter Reason Primary Diagnosis Location Date Ambulatory [place] 05/17/2023 Emergency Acute pharyngiti s, unspecified [facility] 08/12/2022 Care Team Organization Name Specialty Phone Email Start Date End [facility] PCP,No Primary Care 05/17/2023 [facility] NO PCP Primary Care 08/12/2022 08/12/2022 [facility] NO PCP Primary Care 08/12/2022 08/12/2022 [facility] 08/12/2022
--- OUTSIDE RECORDS SUMMARY | 2024-09-05 14:17 | XMS_ITS | Encounter Summary ---
Author Organization [employer] Address [address] [place] [id number] Care Team Providers Care Carding Utility Tender Name Role Phone Ava Yap DO Primary Care Provider + [phone] Reason for Visit * Reason Comments Med Refill Encounter Details Date Type Department Care Team (Late st Contact Info) Description 11/14/2022 Refill [facility] [address] [place] [address] Ava Yap DO [address] [place] [address] Anxiety Social History Tobacco Use Types Packs/Day Years Used Date Smoking Tobacco: Former Cigarettes Passive Smoke Exposure: Never Smokeless Tobacco: Never Alcohol Use Standard Drinks/Week Comments Never 0 (1 standard drink = 0.6 oz pur e alcohol) Comments Unknown Sex and Gender Information Value Date Recorded Sex Assigned at Female 04/25/2022 10:21 AM EDT Legal Sex Female 10:21 AM EDT Gender Identity Choose not to disclose 10:21 AM EDT Sexual Orientation Straight 04/25/2022 10 :21 AM EDT documented as of this encounter Plan of Treatment Upcoming Encounters Date Type Department Care Team (Late st Contact Info) Description 09/06/2024 2:30 PM EDT Office Visit [facility] ADULT DENTAL [address] [place] [address] Donnie Palencia DDS [address] [place] [address] 11/28/2024 1:30 PM EDT Clinical Support [facility] [address] [place] [address] Denisha Cross, DEVI documented as of this encounter Visit Diagnoses Diagnosis Anxiety Anxiety state, unspecified documented in this encounter Additional Health Concerns Assessment Noted Time PHQ-9 Depression Total Score: 0 07/27/19 11:46 AM EST documented as of this encounter Care Teams Carding Utility Tender Relationship Specialty Start Date End Date Ava Yap DO [address] [place] [address] PCP - General Family Medicine 03/28/11 Avelina Hodges [facility] SupervisorKnitting Machine Operator Automatic 04/21/23 documented as of this encounter
--- OUTSIDE RECORDS SUMMARY | 2024-09-05 14:17 | XMS_ITS | Encounter Summary ---
Author Organization [employer] Address [address] [facility] [address], [place] [address] Care Team Providers Care Hand Assembler Name Role Phone Ava Yap DO Primary Care Provider + [phone] Reason for Visit * Reason Comments Med Refill Encounter Details Date Type Department Care Team ([facility] st Contact Info) Description 05/03/2024 Refill [facility] MED[facility] [address] [place] [address] Ava Yap DO [address] [place] [address] Anxiety; Chronic pain of both knees Social History Tobacco Use Types Packs/Day Years Used Date Smoking Tobacco: Former Passive Smoke Exposure: Never Smokeless Tobacco: Never Alcohol Use Standard Drinks/Week Comments Never 0 (1 standard drink = 0.6 oz pur e alcohol) Depression Answer Date Recorded Patient Health Questionnaire-9 Score 5 06/22/2023 Patient Health Questionnaire-9 Score 5 06/22/2023 Last PHQ-9: Questionnaire Data Not on file 1 08/23/2022 Housing Stability Answer Date Recorded What is your housing situation today? I have prieto forrest 04/11/[address] you li ve. Do you have problems with any of the following? None of the above 04/11/2023 Food Insecurity Answer Date Recorded Within the past 12 months, y ou worried that your food would run out before you got money to buy more: Sometimes True 2022 Within the past 12 months,th e food you bought just didn't last and you didn't have enough money to get more: Sometimes True 04/11/2023 Transportation Answer Date Recorded In the past 12 months, has l ack of transportation kept you from medical appts, meetings, work or from getting things needed for daily living? No 04/11/2023 Utilities Answer Date Recorded In the past 12 months, has t he electric, gas, oil or water company threatened to shut off services in your home? No 04/11/2023 Depression Answer Date Recorded Patient Health Questionnaire-2 Score 0 06/22/2023 Comments No Sex and Gender Information Value Date Recorded [...] Description 09/06/2024 2:30 PM EDT Office Visit [facility] ADULT DENTAL [address] [place] [address] Donnie Palencia DDS [address] [place] [address] 11/28/2024 1:30 PM EDT Clinical Support [facility] MEDICINE [address] [place] [address] Denisha Cross, RN documented as of this encounter Visit Diagnoses Diagnosis Anxiety Anxiety state, unspecified Chronic pain of both knees documented in this encounter Additional Health Concerns Assessment Noted Time PHQ-9 Depression Total Score: 5 06/22/20 10:59 AM EST documented as of this encounter Care Teams Hand Assembler Relationship Specialty Start Date End Date Ava Yap DO [address] [place] [address] PCP - General Family Medicine 03/28/11 Avelina Hodges [facility]ett MechanicSnuff Grinder And Screener 04/21/23 documented as of this encounter
--- OUTSIDE RECORDS SUMMARY | 2024-09-05 14:17 | XMS_ITS | Encounter Summary ---
Author Organization [employer] Address [address] [facility] [address] [place] [address] Care Team Providers Care Sprinkler Fitter Name Role Phone Fracisco Ava Primary Care Provider + [phone] Reason for Visit * Reason Comments Med Refill Encounter Details Date Type Department Care Team ([facility] st Contact Info) Description 02/28/2024 Refill [facility] [address] [place] [address] Johan Kraft MD [address] [place] [address] Social History Tobacco Use Types Packs/Day Years [...] Description 09/06/2024 2:30 PM EDT Office Visit [facility] [address] [place] [address] Donnie Palencia DDS [address] [place] [address] 11/28/2024 1:30 PM EDT Clinical Support [facility] [address] [place] [address] Denisha Cross, DEVI documented as of this encounter Visit Diagnoses Not on filedocumented in this encounter Additional Health Concerns Assessment Noted Time PHQ-9 Depression Total Score: 5 06/22/20 23 10:59 AM EST documented as of this encounter Care Teams Sprinkler Fitter Relationship Specialty Start Date End Date Ava Yap DO [address] [place] [address] PCP - General Family Medicine 03/28/11 Avelina Hodges [facility] Administrative AssistantAutomatic Line Set Up Mechanic 04/21/23 documented as of this encounter
--- OUTSIDE RECORDS SUMMARY | 2024-09-05 14:17 | XMS_ITS | Encounter Summary ---
Author Organization [employer] Address [address] [address] Care Team Providers Care Cleaning Validation Consultant Name Role Phone Ava Yap DO Primary Care Provider + [phone] Reason for Visit * Reason Comments Med Refill Encounter Details Date Type Department Care Team ([facility] st Contact Info) Description 03/22/2024 Refill [facility] MED[facility] [address] [place] [address] Ava Yap DO [address] [place] [address] Chronic low back pain, unspecified back pain laterality, unspecified whether sciatica present Social History Tobacco Use Types Packs/Day Years [...] Description 09/06/2024 2:30 PM EDT Office Visit [facility] ADULT DENTAL [address] [place] [address] Donnie Palencia DDS [address] [place] [address] 11/28/2024 1:30 PM EDT Clinical Support [facility] MED[facility] [address] [place] [address] Denisha Cross, RN documented as of this encounter Visit Diagnoses Diagnosis Chronic low back pain, unspecified back pain laterality, unspecified whether sciatica present documented in this encounter Additional Health Concerns Assessment Noted Time PHQ-9 Depression Total Score: 5 06/22/20 23 10:59 AM EST documented as of this encounter Care Teams Cleaning Validation Consultant Relationship Specialty Start Date End Date Ava Yap DO [address] [place] [address] PCP - General Family Medicine 03/28/11 Avelina Hodges Construction FlaggerEnvelope Sealer Operator 04/21/23 documented as of this encounter
--- OUTSIDE RECORDS SUMMARY | 2024-09-05 14:18 | XMS_ITS | Encounter Summary ---
Author Organization [employer] Address 75 [facility] [address] [address] Care Team Providers Care Vascular Technologist Sonographer Name Role Phone MaurilioAva arellano Primary Care Provider + [phone] Reason for Visit * Reason Comments REIMBURSEMENT ANALYST Renewal REIMBURSEMENT ANALYST Renewal Encounter Details Date Type Department Care Team (Latest Contact Info) Description 08/29/2024 10:00 AM EST Clinical [address] [facility] [address] [place] [phone] Denisha Cross RN Chronic knee pain, unspecified laterality (Primary Dx) Social History Tobacco Use Types Packs/Day Years [...] housing situation today? I have prieto forrest 08/30/[address] you li ve. Do you have problems with any of the following? None of the above 08/30/2024 Food Insecurity Answer Date Recorded Within the past 12 months, y ou worried that your food would run out before you got money to buy more: Never True 08/30/2024 Within the past 12 months,th e food you bought just didn't last and you didn't have enough money to get more: Never True 12/2024 Transportation Answer Date Recorded In the past 12 months, has l ack of transportation kept you from medical appts, meetings, work or from getting things needed for daily living? No 08/30/2024 Utilities Answer Date Recorded In the past 12 months, has t he electric, gas, oil or water company threatened to shut off services in your home? No 08/30/2024 Depression Answer Date Recorded Patient Health Questionnaire-2 Score 0 06/22/2023 Internet Access Answer Date Recorded Internet Access Q1 Yes 08/30/2024 Internet Access Q2 Not on file 08/30/2024 Comments No Sex and Gender Information Value Date Recorded Sex Assigned at Female 04/25/2022 10:21 AM EDT Legal Sex Female 10:21 AM EDT Gender Identity Choose not to disclose 10:21 AM EDT Sexual Orientation Straight 04/25/2022 10 :21 AM EDT documented as of this encounter Progress Notes * Denisha Cross RN - 08/29/2024 10:00 AM EST S: Pt here for REIMBURSEMENT ANALYST Renewal Visit, translation provided by staff member Kalina Mendoza Prescribed Tramadol 50mg Q6hr PRN & Lorazepam 2mg BID PRN. States has been taking 3 doses of Tramadol a day, last dose was taken last night. States she has been taking her lorazepam as prescribed, last dose wastaken last night as well. She said she just returned from [place] yesterday. She denies smoking cigarettes, ETOH use, Illicit drug use and marijuana use. Currently rates her pain a 7 and states medication is 80% effective at alleviating pain. Current pain sites are her lower back, left shoulderand her right thumb/wrist. She's been exercising and will use OTC pain relief patches, both with little relief. She said her Lorazepam does help with her anxiety and she sleeps well, if the baby is sleeping. She has a therapist and she speaks with them regularly. She shared that her current landlord is making her move d/t she reported some issues with the home. She's feeling very stressed about this as DCF states she must have stable housing in order for her baby granddaughter to live with her. O: REIMBURSEMENT ANALYST Tier 2. Pt currently prescribed Tramadol 50mg Q6hr PRN & Lorazepam 2mg BID PRN. BARREL LOADER verified today. Tramadol Rx last filled on 08/21/24. Pill count performed. Pt has 40 pills at this time, 7 at least expected. Medication is not overused by patient. Lorazepam Rx last filled on 08/06/24. Pill count performed. Pt has 25 pills at this time, 9 at least expected. Medication is not overused by patient. UTOX completed. Positive for BZO, Negative for AMP, BAR, BUP, JAKE, FTY, MDMA, MET, MOP, MTD, OXY, PCP, TCA, THC. UTOX as expected. BPI updated, see scanned documents from this date. Pain severity score of 7, activity interference score of 5.3. Previous BPI completed 05/15/24 with pain severity score of 5.8, activity interference score of 7.4. DAVID-7 updated today, pt scored a 13, previous DAVID-7 completed 05/15/24 with a score of 18. Narcan medication reviewed, how it's administered and when it's used. Pt stated she understood and has it available. Will update PCP with BPI & DAVID scoring. Reminded patient she needs to attend PCP appt scheduled for tomorrow and her refills will be ad dressed at her PCP appt. Last PCP visit was 06/22/23. A: REIMBURSEMENT ANALYST Contract Renewal Visit: Chronic Opioid use related to pain & Chronic BZO use r/t anxiety. P: REIMBURSEMENT ANALYST contract reviewed and signed, Pt provided copy. Pt to continue taking medication only as prescribed; Next REIMBURSEMENT ANALYST RV appointment scheduled for 11/28/24 @ 1:30p, F/U sooner PRN. Appointment reminder given. Pt verbalized understanding and agreed to plan. documented in this encounter Plan of Treatment Upcoming Encounters Date Type Department Care Team (Late st Contact Info) Description 09/06/2024 2:30 PM EDT Office Visit [facility] [address] [place] [address] Donnie Palencia DDS [address] [place] [address] 11/28/2024 1:30 PM EDT Clinical Support [facility] [address] [place] [phone] Denisha Cross, RN documented as of this encounter Procedures Procedure Name Priority Date/Time Associated Diagnosis Comments POCT ELISEO-14 URINE DRUG SCREEN Routine 08/29/2024 10:14 AM EST Chronic knee pain, unspecified laterality documented in this encounter Results * POCT ELISEO-14 Urine Drug Screen (08/29/2024 10:14 AM EST) Benzodiazepines Screen, Urine Positive Urine Urine specimen obtained by clean catch procedure / Unknown 08/29/2024 10:14 AM EST Narrative Denisha Cross, DEVI - 08/29/2024 10:14 AM EST UTOX cup Lot#[id number] Exp. 02/12/26 Internal Pass Control Ava Yap DO POINT OF CARE TEST ENTER/HILARIO T ORDERABLES Final Result documented in this encounter Visit Diagnoses Diagnosis Chronic knee pain, unspecified laterality- Primary documented in this encounter Additional Health Concerns Assessment Noted Time PHQ-9 Depression Total Score: 5 06/22/20 10:59 AM EST documented as of this encounter Care Teams Vascular Technologist Sonographer Relationship Specialty Start Date End Date Ava Yap DO [address] [place] [address] PCP - General Family Medicine 03/28/11 Avelina Hodges Cytology TechnologistBridge Toll Collector 04/21/23 documented as of this encounter
--- OUTSIDE RECORDS SUMMARY | 2024-09-05 14:18 | XMS_ITS | Encounter Summary ---
Author Organization [employer] Address 75 [facility] 7 [place] [address] Care Team Providers Care Durability Engineer Name Role Phone FraciscoAva Primary Care Provider + [phone] Reason for Visit * Reason Comments Med Refill Encounter Details Date Type Department Care Team ([facility] st Contact Info) Description 04/26/2023 Refill [facility] [address] [place] [address] Vesna Sanabria MD [address] [place] [address] Anxiety Social History Tobacco Use Types Packs/Day Years Used Date Smoking Tobacco: Former Cigarettes Passive Smoke Exposure: Never Smokeless Tobacco: Never Alcohol Use Standard Drinks/Week Comments Never 0 (1 standard drink = 0.6 oz pur e alcohol) Depression Answer Date Recorded Patient Health Questionnaire-9 Score 21 11/24/2022 Housing Stability Answer Date Recorded What is [...] Answer Date Recorded Patient Health Questionnaire-2 Score 6 11/24/2022 Comments Unknown Sex and Gender Information Value [...] Description 09/06/2024 2:30 PM EDT Office Visit [facility] ADULT DENTAL [address] [place] [address] Donnie Palencia DDS [address] [place] [address] 11/28/2024 1:30 PM EDT Clinical Support [facility] [address] [place] [phone] Denisha Cross RN documented as of this encounter Visit Diagnoses Diagnosis Anxiety Anxiety state, unspecified documented in this encounter Additional Health Concerns Assessment Noted Time PHQ-9 Depression Total Score: 21 023 10:23 AM EDT documented as of this encounter Care Teams Durability Engineer Relationship Specialty Start Date End Date Ava Yap DO [address] [place] [phone] PCP - General Family Medicine 03/28/11 Avelina Hodges Wad Compressor Operator AdjusterRegulatory Internship 04/21/23 documented as of this encounter
--- OUTSIDE RECORDS SUMMARY | 2024-09-05 14:18 | XMS_ITS | Encounter Summary ---
Author Organization [employer] Address [address] [place] [address] Care Team Providers Care Professional System Administrator Name Role Phone Ava Yap DO Primary Care Provider + [phone] Encounter Details Date Type Department Care Team (Late Contact Info) Description 07/19/2022 Telephone [facility] [address] [place] [address] [phone] Ava Yap DO [address] [place] [address] [phone] Social History Tobacco Use Types Packs/Day Years [...] Description 09/06/2024 2:30 PM EDT Office Visit [facility] [address] [place] [address] [phone] Donnie Palencia DDS [address] [place], [place] [phone] 11/28/2024 1:30 PM EDT Clinical Support [facility] [address] [place] [address] Denisha Cross, RN documented as of this encounter Visit Diagnoses Not on filedocumented in this encounter Care Teams Professional System Administrator Relationship Specialty Start Date End Date Ava Yap DO [address] [place] [address] PCP - General Family Medicine 03/28/11 Avelina Hodges Beam DofferOil Field Caser 04/21/23 documented as of this encounter
--- OUTSIDE RECORDS SUMMARY | 2024-09-05 14:18 | XMS_ITS | Encounter Summary ---
Author Organization [employer] Address 75 [facility] 7 [place] [address] Care Team Providers Care Raise Miner Name Role Phone FraciscoAva Primary Care Provider + [phone] Reason for Visit * Reason Comments Med Refill Encounter Details Date Type Department Care Team (Late st Contact Info) Description 09/04/2024 Refill [facility] [address] [place] [address] Teetee Matthews MD [address] [place] [address] Chronic pain of both knees; Anxiety Social History Tobacco Use Types Packs/Day [...] Description 09/06/2024 2:30 PM EDT Office Visit [facility]ULT [facility] [address] [place] [phone] Donnie Palencia DDS [address] [place] [address] 11/28/2024 1:30 PM EDT Clinical Support [facility] [address] [place] [address] Denisha Cross, RN documented as of this encounter Visit Diagnoses Diagnosis Chronic pain of both knees Anxiety Anxiety state, unspecified documented in this encounter Additional Health Concerns Assessment Noted Time PHQ-9 Depression Total Score: 5 06/22/20 10:59 AM EST documented as of this encounter Care Teams Raise Miner Relationship Specialty Start Date End Date Ava Yap DO [address] [place] [address] PCP - General Family Medicine 03/28/11 Avelina Hodges Plastics Sheet Finishing Press OperatorAluminum Shingle Roofer 04/21/23 documented as of this encounter
--- OUTSIDE RECORDS SUMMARY | 2024-09-05 14:18 | XMS_ITS | Encounter Summary ---
Author Organization [employer] Address [address] [address] Care Team Providers Care Forestry Adviser Name Role Phone Ava Yap DO Primary Care Provider + [phone] Reason for Visit * Reason Comments Med Refill Encounter Details Date Type Department Care Team (Late st Contact Info) Description 01/29/2024 Refill [facility] [address] [place] [address] Ava Yap DO [address] [place] [address] Anxiety; Chronic bilateral low back pain, unspecified whether sciatica present Social History Tobacco [...] Description 09/06/2024 2:30 PM EDT Office Visit [facility] [address] [place] [address] Donnie Palencia DDS [address] [place] [address] 11/28/2024 1:30 PM EDT Clinical Support [facility] [address] [place] [address] Denisha Cross, RN documented as of this encounter Visit Diagnoses Diagnosis Anxiety Anxiety state, unspecified Chronic bilateral low back pain, unspecified whether sciatica present documented in this encounter Additional Health Concerns Assessment Noted Time PHQ-9 Depression Total Score: 5 06/22/20 10:59 AM EST documented as of this encounter Care Teams Forestry Adviser Relationship Specialty Start Date End Date Ava Yap DO [address] [place] [address] PCP - General Family Medicine 03/28/11 Avelina Hodges Marine Mammal TrainerPublic Safety Telecommunicator 04/21/23 documented as of this encounter
--- OUTSIDE RECORDS SUMMARY | 2024-09-05 14:18 | XMS_ITS | Encounter Summary ---
Author Organization [employer] Address [address] [address] Care Team Providers Care Rug Sizer Name Role Phone Ava Yap DO Primary Care Provider + [phone] Reason for Visit * Reason Onset Date Comments Appointment Request 07/16/2024 Call Back Request 07/16/2024 Encounter Details Date Type Department Care Team ([facility] [place] st Contact Info) Description 07/16/2024 Telephone [facility] [address] [place] [address] Ava Yap DO [address] [place] [address] Appointment Request; Call Back Request Social History Tobacco Use Types Packs/Day Years [...] AM EDT documented as of this encounter Miscellaneous Notes * Telephone Encounter - [facility] [place] - 07/16/2024 8:04 AM EST Tc from pt requesting a callback also to reschedule appointment from today as she can make it due to transportation , pt also stated she don't want to be without meds. [phone] documented in this encounter Plan of Treatment Upcoming Encounters Date Type Department Care Team (Late st Contact Info) Description 09/06/2024 2:30 PM EDT Office Visit [facility] ADULT D[facility] [address] [place] [address] Donnie Palencia DDS [address] [place] [address] 11/28/2024 1:30 PM EDT Clinical Support [facility] [address] [place] [address] Denisha Cross RN documented as of this encounter Visit Diagnoses Not on filedocumented in this encounter Additional Health Concerns Assessment Noted Time PHQ-9 Depression Total Score: 5 06/22/20 23 10:59 AM EST documented as of this encounter Care Teams Rug Sizer Relationship Specialty Start Date End Date Ava Yap DO [address] [place] [address] PCP - General Family Medicine 03/28/11 Avelina Hodges Level Vial SealerPresident Ergonomic Consulting 04/21/23 documented as of this encounter
--- OUTSIDE RECORDS SUMMARY | 2024-09-05 14:18 | XMS_ITS | Encounter Summary ---
Author Organization [employer] Address 75 [facility] [address], [place] [address] Care Team Providers Care Campaign Specialist Name Role Phone Ava Yap DO Primary Care Provider + [phone] Reason for Visit * Reason Comments Med Refill Encounter Details Date Type Department Care Team ([facility] st Contact Info) Description 12/14/2023 Refill [facility] [address] [place] [address] Ava Yap DO [address] [place] [address] Anxiety Social History Tobacco Use Types Packs/Day [...] Description 09/06/2024 2:30 PM EDT Office Visit [facility] [address] [place] [address] Donnie aPlencia DDS [address] [place] [address] 11/28/2024 1:30 PM EDT Clinical Support [facility] [address] [place] [address] Denisha Cross, DEVI documented as of this encounter Visit Diagnoses Diagnosis Anxiety Anxiety state, unspecified documented in this encounter Additional Health Concerns Assessment Noted Time PHQ-9 Depression Total Score: 5 06/22/20 23 10:59 AM EST documented as of this encounter Care Teams Campaign Specialist Relationship Specialty Start Date End Date Ava Yap DO [address] [place] [address] PCP - General Family Medicine 03/28/11 Avelina Hodges Tow Motor DriverBlender Laborer 04/21/23 documented as of this encounter
--- OUTSIDE RECORDS SUMMARY | 2024-09-05 14:18 | XMS_ITS | Encounter Summary ---
Author Organization [employer] Address 75 [facility] 7 [place] [address] Care Team Providers Care Crossing Guard Name Role Phone Ava Yap DO Primary Care Provider + [phone] Reason for Visit * Reason Comments Med Refill Encounter Details Date Type Department Care Team (Late st Contact Info) Description 08/15/2024 Refill [facility] [address] [place] [address] Ava Yap DO [address] [place] [address] Chronic pain of both knees Social History [...] encounter Miscellaneous Notes * Telephone Encounter - Denisha Cross RN - 08/15/2024 11:03 AM EST Per Hossein, Tramadol last picked up 07/24/24. Refill due 08/21/24. Will forward to PCP on 08/19/24. documented in this encounter Plan of Treatment Upcoming Encounters Date Type Department Care Team (Late st Contact Info) Description 09/06/2024 2:30 PM EDT Office Visit [facility] ADULT D[facility] [address] [place] [address] Donnie Palencia DDS [address] [place] [address] 11/28/2024 1:30 PM EDT Clinical Support [facility] [address] [place] [address] Denisha Cross, RN documented as of this encounter Visit Diagnoses Diagnosis Chronic pain of both knees documented in this encounter Additional Health Concerns Assessment Noted Time PHQ-9 Depression Total Score: 5 06/22/20 23 10:59 AM EST documented as of this encounter Care Teams Crossing Guard Relationship Specialty Start Date End Date Ava Yap DO [address] [place] [address] PCP - General Family Medicine 03/28/11 Avelina Hodges Embroidery CutterDetective [place] 04/21/23 documented as of this encounter
--- OUTSIDE RECORDS SUMMARY | 2024-09-05 14:18 | XMS_ITS | Clinical Summary ---
Author Organization [facility] Address [address] [place] [address] Care Team Providers Care Equipment Cleaner And Tester Name Role Phone Pcp, No Primary Care Provider Unavailabl e Allergies No known active allergies Medications Medication Sig Dispensed Refills Start Date End Date Status amoxicillin-clavulan ate (AUGMENTIN) 875-125 MG per tablet Take 1 tablet by mouth 2 (two) times a day. Take as directed or until you run out 20 tablet 08/13/2022 Active Social History Tobacco Use Types Packs/Day Years Used Date Smoking Tobacco: Never Assessed Sex and Gender Information Value Date Recorded Sex Assigned at Female 08/15/2022 2:42 PM EST Gender Identity Female 08/15/2022 2:42 PM EST Sexual Orientation Choose not to disclose 2022 2:42 PM EST Last Filed Vital Signs Vital Sign Reading Time Taken Comments Blood Pressure 141/92 08/12/2022 9:36 PM EST Pulse 107 08/12/2022 9:36 PM EST Temperature 37.1 ??C (98.8 ??F) 08/12/2022 7:10 PM ES T Respiratory Rate 16 08/12/2022 9:36 PM EST Oxygen Saturation 97% 08/12/2022 9:36 PM EST Inhaled Oxygen Concentration - - Weight - - Height - - Body Mass Index - - Plan of Treatment Health Maintenance Due Date Last Done Comments Hepatitis C Virus Screening 1971 HIV Screening 12/05/1984 DTaP/Tdap/Td Vaccines (1 - Tdap) 12/05/1990 Hepatitis B Vaccines (1 of 3 - 19+ 3-dose series) 12/05/1990 Pap Smear (Ages 21-65) 12/05/1992 Mammogram 2011 Colonoscopy 12/05/2016 Pneumococcal Vaccines 50+ (1 of 1 - PCV) 12/05/2021 Zoster (Shingles) Vaccine (1 of 2) 12/05/2021 Influenza Vaccine 01/25/2024 COVID-19 Vaccine (2023-2 5 season) 2024 06/15/2021, 10/03/2020 Pneumococcal Vaccine: Pediatric (0-5 Years) and At-Risk Patients (6 to 49 Years) Aged Out No longer eligible b ased on patient's age to complete this topic Care Teams Equipment Cleaner And Tester Relationship Specialty Start Date End Date Pcp, No PCP - General General Medicine 08/12/22
--- OUTSIDE RECORDS SUMMARY | 2024-09-05 14:18 | XMS_ITS | Encounter Summary ---
Author Organization [employer] Address [address] [place] [address] Care Team Providers Care Certified Professional Controller Name Role Phone Ava Yap DO Primary Care Provider + [phone] Encounter Details Date Type Department Care Team ([facility] Contact Info) Description 07/18/2022 Orders Only [facility] CHC MED & PEDS [address] [place], [place] [phone] Ava Holt LPN Social History Tobacco Use Types Packs/Day Years [...] Encounters Date Type Department Care Team (Late Contact Info) Description 09/06/2024 2:30 PM EDT Office Visit [facility] ADULT DENTAL [address] [place], [place] [phone] Donnie Palencia DDS [address] [place], [place] [phone] 11/28/2024 1:30 PM EDT Clinical Support [facility] MEDICINE [address] [place], [place] [phone] [place], Denisha, RN documented as of this encounter Procedures Procedure Name Priority Date/Time Associated Diagnosis Comments SARS COV2/INFLUENZA A/B AND RSV RNA QL NAAT Routine 08/12/2022 10:32 AM EST CBC WITH AUTO DIFFERENTIAL Routine 08/12/2022 10:32 AM EST SED RATE BY MODIFIED WESTERGREN Routine 08/12/2022 10:32 AM EST C-REACTIVE PROTEIN Routine 08/12/2022 10 :32 AM EST BASIC METABOLIC PANEL Routine 08/12/2022 10:32 AM EST STREP A NUCLEIC ACID Routine 08/12/2022 9:[address] CHEST WO CONTRAST Routine 08/09/2022 9:07 AM EST documented in this encounter Results * SARS-CoV-2 RNA, Influenza A/B, and RSV RNA, Ql NAAT (08/12/2022 10:32 AM EST) Influenza A PCR NEGATIVE Negative [facility] Influenza B PCR NEGATIVE Negative [facility] Resp Syncy Virus RNA Qual PCR NEGATIVE Negative [facility] SARS COV2 PCR NEGATIVE Negative [facility] SARS/Flu/RSV Note See Note [facility] Comment:All test results mus t be correlated with clinical findings.Negative results do not preclude SARS-CoV2, influenza Avirus, influenza B virus and/or RSV infectionand should not be used as the sole basis for treatment orother patient management decisions. Negative results must becombined with clinical observations, patient history, andepidemiological information.This test has not been evaluated for monitoring treatment ofinfection.This test has been authorized by the FDA under an EmergencyUse Authorization (EUA) for use by authorized laboratories.Testing performed on the [employer] GeneXpert utilizingreal-time RT-PCR.All SARS CoV2 and positive influenza A/B results arereported to [facility]. 08/12/2022 10:3 2 AM EST 08/12/2022 10:37 AM EST [facility] Exter nal Provider LAB MICROBIOLOGY - GENERAL ORDERABLES Final Result Performing Organization Address [facility] Co de Phone Number [facility] [address] [place] [address] [phone] * Sed Rate by Modified Westergren (08/12/2022 10:32 AM EST) Pathologist [facility] Erythrocyte Sedimentation Rate 16 0 - 20 MM/HR [facility] Comment:Patients with polycy themia and many hemoglobin abnormalitiesmay have depressed sed rates whereas patients with anemiamay have elevated sed rates. 08/12/2022 10:3 2 AM EST 08/12/2022 10:37 AM EST [facility] External Provider LAB BLO OD ORDERABLES Final Result Performing Organization Address [facility] Co de Phone Number [facility] [address] [place] [address] [phone] * C-reactive Protein (08/12/2022 10:32 AM EST) [facility] C Reactive Protein 0.41 < or = 0.50 mg/dL [facility] 08/12/2022 10:3 2 AM EST 08/12/2022 10:37 AM EST [facility] External Provider LAB BLO OD ORDERABLES Final Result Performing Organization Address [facility] Co de Phone Number [facility] [address] [place] [address] [phone] * (ABNORMAL) Basic Metabolic Panel (08/12/2022 10:32 AM EST) [facility] Sodium 142 135 - 145 mmol/L [facility] Potassium 4.3 3.3 - 5.1 mmol/L [facility] Chloride 109(H) 96 - 108 mmol/L [facility] Carbon Dioxide 23 22 - 29 mmol/L [facility] Anion Gap 14 12 - 20 [facility] Urea Nitrogen (BUN) 11 9 - 16 mg/dL [facility] Creatinine, Serum 0.76 0.5 - 1.4 mg/dL [facility] Creatinine Clr Calc Pharmacy 92.0 [facility] Comment:Provided height and weight: 149.86 cm,99.79 kg.eGFR (calculated from the MDRD study equation) and eCrCl(calculated from the Cockcroft-Gault equation) are based ondifferent parameters and may not yield comparable results.If eCrCl result is absurd, please check patient'sheight/weight. Estimated Glomerular Filt Rate >60 [facility] Comment:NOTE: For -Am erican individuals, multiply the result by 1.210.Chronic Kidney Disease: Estimated GFR < 60 mL/min/1.14n3Bduygk Kidney Disease: Estimated GFR < 15 mL/min/1.73m2 Glucose 113 60 - 115 mg/dL [facility] Calcium 9.7 8.4 - 10.2 mg/dL [facility] 08/12/2022 10:3 2 AM EST 08/12/2022 10:37 AM EST us [facility] External Provider LAB BLO OD ORDERABLES Final Result [facility] [address] [place] [phone] * (ABNORMAL) CBC auto differential (08/12/2022 10:32 AM EST) White Blood Count 5.9 4.8 - 10.8 X10*3/uL [facility] Red Blood Count 4.44 4.20 - 5.50 X10*6/uL [facility] Hemoglobin 13.4 12.0 - 16.0 g/dl [facility] Hematocrit 40.5 37.0 - 47.0 % [facility] Mean Corpuscular Volume 91.2 80.0 - 98.0 fL [facility] Mean Corpuscular Hemoglobin 30.2 27.0 - 33.0 pg [facility] Mean Corpuscular HGB Conc 33.1 31.0 - 35.0 g/dl [facility] Red Cell Distribution Width 13.2 11.0 - 16.0 % [facility] Platelet Count 252 160 - 400 X10*3/uL [facility] Mean Platelet Volume 10.7 9.4 - 12.3 fL [facility] Neutrophils Percent Auto 49.0 45 - 73 % [facility] Imm Gran Pct Auto 0.2 0.0 - 0.4 % [facility] Lymphocytes Percent Auto 40.9(H) 20 - 40 % [facility] Monocytes Percent Auto 8.8 2 - 11 % [facility] Eosinophils Percent Auto 0.8 0 - 4 % [facility] Basophils Percent Auto 0.3 0 - 2 % [facility] NRBC Pct Auto 0.0 0.0 - 0.2 /100WBC [facility] Neutrophils Absolute Auto 2.9 2.0 - 8.3 x10*3/uL [facility] Imm Gran Abs Auto 0.01 0.00 - 0.03 X10*3/uL [facility] Lymphocytes Absolute Auto 2.4 1.2 - 4.9 X10*3/uL [facility] Monocytes Absolute Auto 0.5 0.1 - 1.2 X10*3/uL [facility] Eosinophils Absolute Auto 0.1 0.0 - 0.4 X10*3/uL [facility] Basophils Absolute Auto 0.0 0.0 - 0.2 X10*3/uL [facility] NRBC Abs Auto 0.000 0.0 - 0.012 X10*3/uL [facility] 08/12/2022 10:3 2 AM EST 08/12/2022 10:37 AM EST us [facility] External Provider LAB BLO OD ORDERABLES Final Result [facility] [address] [place] [address] [phone] * Strep A Nucleic Acid (08/12/2022 9:10 AM EST) BIA SERIAL# [id number] [facility] Strep A Nucleic Acid Negative Negative [facility] Comment:All test results mus t be correlated with clinical findings.This test has not been evaluated for monitoring treatment ofinfection.Additional follow-up testing using the culture method isrequired if the result is negative and clinical symptomspersist, or in the event of an acute rheumatic feveroutbreak. 08/12/2022 9:10 AM EST 08/12/2022 9:12 AM EST us [facility] Exter nal Provider LAB MICROBIOLOGY - GENERAL ORDERABLES Final Result [facility] [address] [place] [address] [phone] * CT Chest w/o Contrast (08/09/2022 9:07 AM EST) Anatomical Region Laterality Modality Body, Chest Computed Tomogra phy 08/09/2022 9:07 AM EST Narrative 08/13/2022 11:33 AM EST ? [facility] ?[address] ?[place] [address] ? CT Scan Report ? Signed ? Patient: Asif Muhammad,Ximena ?MR#: ?? [id number] ? : 1970 ?Acct:[id number] ? Age/Sex: 51 / F ?ADM Date: 08/09/ ? Loc: HO.CT ? Attending Dr: Ava Yap DO ? Ordering Physician: Ava Yap DO ?? Date of Service: 08/09/22 ?? Procedure(s): CT chest wo IV con ?? Accession Number(s): [id number] ? cc: Ava Yap DO ? EXAMINATION: ?? CT CHEST WITHOUT CONTRAST ? CLINICAL INFORMATION: ?? Follow up pulmonary nodules. ? COMPARISON: ?? CT chest 04/09/2021. ? TECHNIQUE: ?? Multidetector volumetric CT imaging of the chest was done. Axial MIP ?? volume rendering provided. Sagittal and coronal reformatted images were ?? obtained. ? This CT examination was performed using dose optimization techniques as ?? appropriate, variously including the following: ?? *Automated exposure control ?? *Adjustment of mA and/or kV according to patient size (this includes ?? techniques or standardized protocols for targeted exams where dose is ?? matched to indication/reason for exam; i.e. extremities or head) ?? *Use of iterative reconstruction technique ? DLP: ?? 256 mGy-cm ? FINDINGS: ? LUNGS: Again seen are multiple calcified pulmonary granulomas scattered ?? throughout the lungs. No suspicious solid nodule is seen. Appearances ?? are unchanged when compared to the prior study. The lungs are otherwise ?? clear with no evidence of inflammation or solid noncalcified nodules. ?? There is no finding seen in the lungs are well require any follow up. ? MEDIASTINUM: The mediastinum is normal. ? CORONARY ARTERY CALCIFICATION: Calcification in the left anterior ?? descending artery. ? PLEURA: There is no pleural effusion. No pleural mass or thickening. ? AXILLA: No lymphadenopathy. ? UPPER ABDOMEN: The liver appears enlarged and demonstrates decreased ?? attenuation consistent with hepatic steatosis. ? OSSEOUS STRUCTURES: Mild degenerative changes. ? CT/CT chest wo IV con ?? IMPRESSION: ?? 1. Multiple calcified pulmonary granulomas. No suspicious lung nodules ?? are seen. No pulmonary finding is seen that would require follow up. ? 2. Incidentally noted hepatic steatosis, coronary calcifications and ?? mild degenerative changes in the spine. ? Fleischner guidelines were followed. ? Dictated By: ?Catarino Renteria MD ? Signed By: ?<Electronically signed by Catarino Renteria MD in OV> ? 08/13/221130 ? DD/ 6 ? TD/TT: ? Railroad Watchman: SS ? Procedure Note Frances, Serenity - 08/13/[address] [address] [address] Scan Report Signed Patient: Kody Xiong#: [id number] : 1970Acct:[id number] Age/Sex: 51 / FADM Date: 08/09/22 Loc: HO.CT Attending Dr: Ava Yap DO Ordering Physician: Ava Yap DO Date of Service: 08/09/22 Procedure(s): CT chest wo IV con Accession Number(s): [id number] cc: Ava Yap DO EXAMINATION: CT CHEST WITHOUT CONTRAST CLINICAL INFORMATION: Follow up pulmonary nodules. COMPARISON: CT chest 04/09/2021. TECHNIQUE: Multidetector volumetric CT imaging of the chest was done. Axial MIP volume rendering provided. Sagittal and coronal reformatted images were obtained. This CT examination was performed using dose optimization techniques as appropriate, variously including the following: *Automated exposure control *Adjustment of mA and/or kV according to patient size (this includes techniques or standardized protocols for targeted exams where dose is matched to indication/reason for exam; i.e. extremities or head) *Use of iterative reconstruction technique DLP: 256 mGy-cm FINDINGS: LUNGS: Again seen are multiple calcified pulmonary granulomas scattered throughout the lungs. No suspicious solid nodule is seen. Appearances are unchanged when compared to the prior study. The lungs are otherwise clear with no evidence of inflammation or solid noncalcified nodules. There is no finding seen in the lungs are well require any follow up. MEDIASTINUM: The mediastinum is normal. CORONARY ARTERY CALCIFICATION: Calcification in the left anterior descending artery. PLEURA: There is no pleural effusion. No pleural mass or thickening. AXILLA: No lymphadenopathy. UPPER ABDOMEN: The liver appears enlarged and demonstrates decreased attenuation consistent with hepatic steatosis. OSSEOUS STRUCTURES: Mild degenerative changes. CT/CT chest wo IV con IMPRESSION: 1. Multiple calcified pulmonary granulomas. No suspicious lung nodules are seen. No pulmonary finding is seen that would require follow up. 2. Incidentally noted hepatic steatosis, coronary calcifications and mild degenerative changes in the spine. Fleischner guidelines were followed. Dictated By: Catarino Renteria MD Signed By: <Electronically signed by Catarino Renteria MD in OV> 08/13/22 1131 DD/ 0907 TD/TT: Railroad Watchman: MEDARDO [facility] External Provider IMG CT PROCEDURES Edited Result - Final documented in this encounter Visit Diagnoses Not on filedocumented in this encounter Care Teams Certified Professional Controller Relationship Specialty Start Date End Date Ava Yap DO [address] [place] [address] PCP - General Family Medicine 03/28/11 Avelina Hodges Child Care NursePot Fireman 04/21/23 documented as of this encounter
--- OUTSIDE RECORDS SUMMARY | 2024-09-05 14:18 | XMS_ITS | Encounter Summary ---
Author Organization [employer] Address [address] [facility] 7[place], [place] [address] Care Team Providers Care Bookmaker Map Name Role Phone Ava Yap DO Primary Care Provider + [phone] Reason for Visit * Reason Comments Med Refill Encounter Details Date Type Department Care Team ([facility] st Contact Info) Description 07/05/2023 Refill [facility] MEDICINE [address] [place] [address] Ava Yap DO [address] [place] [address] Chronic bilateral low back pain, unspecified whether sciatica present; Anxiety Social History Tobacco Use Types Packs/Day [...] Patient Health Questionnaire-2 Score 0 06/22/2023 Comments Unknown Sex and Gender Information Value [...] Description 09/06/2024 2:30 PM EDT Office Visit [facility] ADULT DENTAL [address] [place] [address] Donnie Palencia DDS [address] [place] [address] 11/28/2024 1:30 PM EDT Clinical Support [facility] MEDICINE [address] [place] [address] Denisha Cross, RN documented as of this encounter Visit Diagnoses Diagnosis Chronic bilateral low back pain, unspecified whether sciatica present Anxiety Anxiety state, unspecified documented in this encounter Additional Health Concerns Assessment Noted Time PHQ-9 Depression Total Score: 5 06/22/20 23 10:59 AM EST documented as of this encounter Care Teams Bookmaker Map Relationship Specialty Start Date End Date Ava Yap DO [address] [place] [address] PCP - General Family Medicine 03/28/11 Avelina Hodges Satellite Installation TechnicianShop Service Technician 04/21/23 documented as of this encounter
--- OUTSIDE RECORDS SUMMARY | 2024-09-05 14:18 | XMS_ITS | Encounter Summary ---
Author Organization [employer] Address 75 [facility] [address] [place] [address] Care Team Providers Care Heddler Name Role Phone Ava Yap DO Primary Care Provider + [phone] Reason for Visit * Reason Comments Med Refill Encounter Details Date Type Department Care Team ([facility] st Contact Info) Description 08/19/2024 Refill [facility] CHC MED & PEDS [address] [place] [address] Ava Yap DO [address] [place] [address] Chronic gastroesophageal reflux disease Social History Tobacco Use Types Packs/Day Years [...] 09/06/2024 2:30 PM EDT Office Visit [facility] ADULT DENTAL [address] [place] [address] Donnie Palencia DDS [address] [place] [address] 11/28/2024 1:30 PM EDT Clinical Support [facility] MEDICINE [address] [place] [address] Denisha Cross, RN documented as of this encounter Visit Diagnoses Diagnosis Chronic gastroesophageal reflux disease documented in this encounter Additional Health Concerns Assessment Noted Time PHQ-9 Depression Total Score: 5 06/22/20 23 10:59 AM EST documented as of this encounter Care Teams Heddler Relationship Specialty Start Date End Date Ava Yap DO [address] [place] [address] PCP - General Family Medicine 03/28/11 Avelina Hodges Veneer Press OperatorField Care Advocate 04/21/23 documented as of this encounter
--- OUTSIDE RECORDS SUMMARY | 2024-09-05 14:18 | XMS_ITS | Encounter Summary ---
Author Organization [employer] Address [address] [address] Care Team Providers Care Network Specialist Name Role Phone Ava Yap DO Primary Care Provider + [phone] Reason for Visit * Reason Comments Med Refill Encounter Details Date Type Department Care Team ([facility] st Contact Info) Description 07/04/2023 Refill [facility] MEDICINE [address] [place] [address] Ava Yap DO [address] [place] [address] Anxiety; Chronic bilateral low back pain, unspecified [...] 2:30 PM EDT Office Visit [facility] ADULT DENTAL [address] [place] [address] Donnie Palencia DDS [address] [place] [address] 11/28/2024 1:30 PM EDT Clinical Support [facility] MEDICINE [address] [place] [address] Denisha Cross, RN documented as of this encounter Visit Diagnoses Diagnosis Anxiety Anxiety state, unspecified Chronic bilateral low back pain, unspecified whether sciatica present documented in this encounter Additional Health Concerns Assessment Noted Time PHQ-9 Depression Total Score: 5 06/22/20 23 10:59 AM EST documented as of this encounter Care Teams Network Specialist Relationship Specialty Start Date End Date Ava Yap DO [address] [place] [address] PCP - General Family Medicine 03/28/11 Avelina Hodges Bush Hog OperatorCard Game Operator 04/21/23 documented as of this encounter
--- OUTSIDE RECORDS SUMMARY | 2024-09-05 14:18 | XMS_ITS | Encounter Summary ---
Author Organization [employer] Address [address] [place] [address] Care Team Providers Care Poultry Dressing Worker Name Role Phone Ava Yap DO Primary Care Provider + [phone] Reason for Visit * Reason Comments Med Refill Encounter Details Date Type Department Care Team ([facility] Contact Info) Description 03/19/2023 Refill [facility] MEDICINE [address] [place] [address] Ava Yap DO [address] [place] [address] Social History Tobacco Use Types Packs/Day Years Used Date Smoking Tobacco: Former Cigarettes Passive Smoke Exposure: Never Smokeless Tobacco: Never Alcohol Use Standard Drinks/Week Comments Never 0 (1 standard drink = 0.6 oz pur e alcohol) Depression Answer Date Recorded Patient Health Questionnaire-9 Score 21 11/24/2022 Depression Answer Date Recorded Patient Health Questionnaire-2 [...] Upcoming Encounters Date Type Department Care Team ([facility] Contact Info) Description 09/06/2024 2:30 PM EDT Office Visit [facility] ADULT DENTAL [address] [place] [address] Donnie Palencia DDS [address] [place] [address] 11/28/2024 1:30 PM EDT Clinical Support [facility] MEDICINE [address] [facility] [place] [address] Denisha Cross, RN documented as of this encounter Visit Diagnoses Not on filedocumented in this encounter Additional Health Concerns Assessment Noted Time PHQ-9 Depression Total Score: 21 023 10:23 AM EDT documented as of this encounter Care Teams Poultry Dressing Worker Relationship Specialty Start Date End Date Ava Yap DO [address] [facility] [place] [address] PCP - General Family Medicine 03/28/11 Avelina Hodges Mailroom ClerkCotton Breeder 04/21/23 documented as of this encounter
--- OUTSIDE RECORDS SUMMARY | 2024-09-05 14:18 | XMS_ITS | Encounter Summary ---
Author Organization [employer] Address [address] [facility] 7 [place] [address] Care Team Providers Care Processing Associate Name Role Phone Ava Yap DO Primary Care Provider + [phone] Reason for Visit * Reason Onset Date Comments Med Refill Schedule WATER PURIFIER OPERATOR Initial 04/26/2023 Encounter Details Date Type Department Care Team (Late st Contact Info) Description 04/26/2023 Refill [facility] CHC MED & PEDS [address] [place] [address] Ava Yap DO [address] [facility] [place] [place] [address] Anxiety; Chronic bilateral low back pain, unspecified [...] Telephone Encounter - Denisha Cross RN - 04/26/2023 11:55 AM EDT TC via P/I#[id number], male voice answered, stated pt was not available. L/M with Rich requesting pt call back to schedule WATER PURIFIER OPERATOR Initial appt. documented in this encounter Plan of Treatment Upcoming Encounters Date Type Department Care Team (Late st Contact Info) Description 09/06/2024 2:30 PM EDT Office Visit [facility] ADULT DENTAL [address] [place] [address] Donnie Palencia DDS [address] [place] [address] 11/28/2024 1:30 PM EDT Clinical Support [facility] MEDICINE [address] [place] [address] Denisha Cross, RN documented as of this encounter Visit Diagnoses Diagnosis Anxiety Anxiety state, unspecified Chronic bilateral low back pain, unspecified whether sciatica present documented in this encounter Additional Health Concerns Assessment Noted Time PHQ-9 Depression Total Score: 21 023 10:23 AM EDT documented as of this encounter Care Teams Processing Associate Relationship Specialty Start Date End Date Ava Yap DO [address] [place] [address] PCP - General Family Medicine 03/28/11 Avelina Hodges Computer Customer Support SpecialistChocolate Finisher Operator 04/21/23 documented as of this encounter
--- OUTSIDE RECORDS SUMMARY | 2024-09-05 14:18 | XMS_ITS | Encounter Summary ---
Author Organization [employer] Address [address] [facility] 7[place], [place] [address] Care Team Providers Care Brush Holder Inspector Name Role Phone Ava Yap DO Primary Care Provider + [phone] Reason for Visit * Reason Comments Med Refill Encounter Details Date Type Department Care Team ([facility] st Contact Info) Description 05/03/2024 Refill [facility] MEDICINE [address] [place] [address] Ava Yap DO [address] [place] [address] Anxiety; Chronic pain of both knees Social [...] Description 09/06/2024 2:30 PM EDT Office Visit [facility] ADULT DENTAL [address] [place] [address] Donnie Palencia DDS [address] [place] [address] 11/28/2024 1:30 PM EDT Clinical Support [facility] MEDICINE [address] [place] [address] Denisha Cross, RN documented as of this encounter Visit Diagnoses Diagnosis Anxiety Anxiety state, unspecified Chronic pain of both knees documented in this encounter Additional Health Concerns Assessment Noted Time PHQ-9 Depression Total Score: 5 06/22/20 10:59 AM EST documented as of this encounter Care Teams Brush Holder Inspector Relationship Specialty Start Date End Date Ava Yap DO [address] [place] [address] PCP - General Family Medicine 03/28/11 Avelina Hodges Manager CommoditiesLoss Prevention Detective 04/21/23 documented as of this encounter
--- OUTSIDE RECORDS SUMMARY | 2024-09-05 14:18 | XMS_ITS | Encounter Summary ---
Author Organization [employer] Address [address] [facility] [address] [place] [address] Care Team Providers Care Resident Inspector Name Role Phone FraciscoAva Primary Care Provider + [phone] Reason for Visit * Reason Comments Med Refill Encounter Details Date Type Department Care Team ([facility] st Contact Info) Description 08/04/2023 Refill [facility] MEDICINE [address] [place] [address] Vesna Sanabria MD [address] [place] [address] Chronic bilateral low back pain, unspecified whether [...] Description 09/06/2024 2:30 PM EDT Office Visit [facility] ADULT DENTAL [address] [place] [address] Donnie Palencia DDS [address] [place] [address] 11/28/2024 1:30 PM EDT Clinical Support [facility] MEDICINE [address] [place] [address] Denisha Cross, RN documented as of this encounter Visit Diagnoses Diagnosis Chronic bilateral low back pain, unspecified whether sciatica present documented in this encounter Additional Health Concerns Assessment Noted Time PHQ-9 Depression Total Score: 5 06/22/20 10:59 AM EST documented as of this encounter Care Teams Resident Inspector Relationship Specialty Start Date End Date Ava Yap DO [address] [place] [address] PCP - General Family Medicine 03/28/11 Avelina Hodges Erp SpecialistCementing Machine Operator 04/21/23 documented as of this encounter
--- OUTSIDE RECORDS SUMMARY | 2024-09-05 14:18 | XMS_ITS | Encounter Summary ---
Author Organization [employer] Address [address] [facility] [address] [place] [address] Care Team Providers Care Four Slide Machine Operator Name Role Phone FraciscoAva Primary Care Provider + [phone] Reason for Visit * Reason Comments Med Refill Encounter Details Date Type Department Care Team (Late st Contact Info) Description 08/04/2023 Refill [facility] MEDICINE [address] [place] [address] Svetlana Mccollum MD [address] [place] [address] Anxiety Social History Tobacco Use Types Packs/Day [...] Description 09/06/2024 2:30 PM EDT Office Visit [facility] ADULT DENTAL [address] [place] [address] Donnie Palencia DDS [address] [place] [address] 11/28/2024 1:30 PM EDT Clinical Support [facility] MEDICINE [address] [place] [address] Denisha Cross, DEVI documented as of this encounter Visit Diagnoses Diagnosis Anxiety Anxiety state, unspecified documented in this encounter Additional Health Concerns Assessment Noted Time PHQ-9 Depression Total Score: 5 06/22/20 23 10:59 AM EST documented as of this encounter Care Teams Four Slide Machine Operator Relationship Specialty Start Date End Date Ava Yap DO [address] [place] [id number] PCP - General Family Medicine 03/28/11 Avelina Hodges Consulting Sales ExecutiveOutbound Supervisor 04/21/23 documented as of this encounter
--- OUTSIDE RECORDS SUMMARY | 2024-09-05 14:18 | XMS_ITS | Encounter Summary ---
Author Organization [employer] Address [address] [address] Care Team Providers Care Leather Products Supervisor Name Role Phone Ava Yap DO Primary Care Provider + [phone] Reason for Visit * Reason Onset Date Comments Paperwork/Forms 09/05/2024 Encounter Details Date Type Department Care Team ([facility] st Contact Info) Description 09/05/2024 Telephone [facility] MEDICINE [address] [place] [address] Ava Yap DO [address] [place] [address] Paperwork/Forms Social History Tobacco Use Types Packs/Day Years [...] encounter Miscellaneous Notes * Telephone Encounter - Marie Hernandes - 09/05/2024 12:57 PM EDT TC from pt calling stating need a PA for medication Lorazepam 2mg. PCP DR. Yap documented in this encounter Plan of Treatment Upcoming Encounters Date Type Department Care Team (Late st Contact Info) Description 09/06/2024 2:30 PM EDT Office Visit [facility] ADULT DENTAL [address] [place] [address] Donnie Palencia DDS [address] [place] [address] 11/28/2024 1:30 PM EDT Clinical Support [facility] MEDICINE [address] [place] [address] Denisha Cross RN documented as of this encounter Visit Diagnoses Not on filedocumented in this encounter Additional Health Concerns Assessment Noted Time PHQ-9 Depression Total Score: 5 06/22/20 23 10:59 AM EST documented as of this encounter Care Teams Leather Products Supervisor Relationship Specialty Start Date End Date Ava Yap DO [address] [place] [address] PCP - General Family Medicine 03/28/11 Avelina Hodges Director LearningMedical Clinic Manager 04/21/23 documented as of this encounter
--- OUTSIDE RECORDS SUMMARY | 2024-09-05 14:19 | XMS_ITS | Encounter Summary ---
Author Organization [employer] Address [address] [facility] [address] [place] [address] Care Team Providers Care Clinical Specialist Vascular Name Role Phone DavidAva neff Primary Care Provider + [phone] Encounter Details Date Type Department Care Team (Latest Contact Info) Description 08/29/2024 Travel Social History Tobacco Use Types Packs/Day Years [...] 2:30 PM EDT Office Visit [facility] ADULT DENTAL [address] [place] [address] Donnie Palencia DDS [address] [place] [address] 11/28/2024 1:30 PM EDT Clinical Support [facility] MEDICINE [address] [place] [address] Denisha Cross, DEVI documented as of this encounter Visit Diagnoses Not on filedocumented in this encounter Additional Health Concerns Assessment Noted Time PHQ-9 Depression Total Score: 5 06/22/20 23 10:59 AM EST documented as of this encounter Care Teams Clinical Specialist Vascular Relationship Specialty Start Date End Date Ava Yap DO [address] [place] [address] PCP - General Family Medicine 03/28/11 Avelina Hodges DominatrixCity Designer 04/21/23 documented as of this encounter
--- OUTSIDE RECORDS SUMMARY | 2024-09-05 14:19 | XMS_ITS | Encounter Summary ---
Author Organization [employer] Address [address] [facility] [address] [place] [address] Care Team Providers Care Contact Center Team Lead Name Role Phone Fracisco Ava Primary Care Provider + [phone] Reason for Visit * Reason Comments Med Refill Encounter Details Date Type Department Care Team ([facility] st Contact Info) Description 09/02/2024 Refill [facility] MEDICINE [address] [place] [address] Teetee Matthews MD [address] [place] [address] Anxiety; Chronic pain of both knees Social [...] your housing situation today? I have prieto sing 08/30/[address] you li [...] Description 09/06/2024 2:30 PM EDT Office Visit [facility] ADULT DENTAL [address] [place] [address] Donnie Palencia DDS [address] [place] [address] 11/28/2024 1:30 PM EDT Clinical Support [facility] MEDICINE [address] [place] [address] Denisha Cross, RN documented as of this encounter Visit Diagnoses Diagnosis Anxiety Anxiety state, unspecified Chronic pain of both knees documented in this encounter Additional Health Concerns Assessment Noted Time PHQ-9 Depression Total Score: 5 06/22/20 23 10:59 AM EST documented as of this encounter Care Teams Contact Center Team Lead Relationship Specialty Start Date End Date Ava Yap DO [address] [place] [address] PCP - General Family Medicine 03/28/11 Avelina Hodges Percussion TeacherPcmh Specialist 04/21/23 documented as of this encounter
--- OUTSIDE RECORDS SUMMARY | 2024-09-05 14:19 | XMS_ITS | Clinical Summary ---
Author Organization [employer] Address [address] [place] [address] 7 [place] [address] Care Team Providers Care Dish Room Worker Name Role Phone FraciscoAva Primary Care Provider [phone] Allergies Active Allergy Reactions Criticality Noted Date Comments Hydrochlorothiazide 09/04/2019 Loratadine Low 12/23/2014 Other reaction(s): Itchy, Burning sensation Other reaction(s): CHILLS AND DIFF BREATHING Medications amLODIPine (Norvasc) 10 MG tablet TAKE 1 TABLET BY MOUTH DAILY 023 Active Repatha SureClick 140 MG/ML injection INJECT 140 MG (1 PEN) SUBCUTANEOUSLY EVERY 2 WEEKS 023 Active ezetimibe (Zetia) 10 MG tablet TAKE 1 TABLET BY MOUTH DAILY 023 Active famotidine (Pepcid) 40 MG tablet TAKE 1 TABLET BY MOUTH AT BEDTIME 023 Active fenofibrate (Tricor) 54 MG tablet TAKE 1 TABLET BY MOUTH EVERY DAY 022 Active fluticasone (Flonase) 50 MCG/ACT nasal spray USE 2 SPRAYS IN EACH NOSTRIL EVERY DAY 023 Active rosuvastatin (Crestor) 40 MG tablet TAKE 1 TABLET BY MOUTH EVERY DAY 022 Active SUMAtriptan (Imitrex) 50 MG tablet TAKE 1 TABLET BY MOUTH AT ONSET OF MIGRAINE. MAY REPEAT ONCE AFTER 2 HOURS IF NEEDED, DO NOT EXCEED 2 TABLETS PER DAY 023 Active Roflumilast 250 MCG tablet Take 1 tablet by mouth daily Active albuterol (2.5 MG/3ML) 0.083% nebulizer solutionIndication s:Mild persistent asthma without complication INHALE 1 AMPULE USING A NEBULIZER EVERY 6 HOURS NEEDED FOR WHEEZING 90 mL 1 023 Active naloxone (Narcan) 4 mg/0.1 mL nasal sprayIndications:C hronic pain syndrome FOR SUSPECTED OPIOID OVERDOSE. SPRAY 0.1mL IN ONE NOSTRIL. REPEAT IN ALTERNATE NOSTRIL 2-3 MINUTES IF NEEDED. SEEK MEDICAL ATTENTION IMMEDIATELY EVEN IF PATIENT RESPONDS. 2 each 3 024 Active Multiple Vitamins-Iron (Tab-A-Colton/Iron) tablet TAKE 1 TABLET BY MOUTH EVERY DAY WITH FOOD 90 tablet 3 024 Active gabapentin (Neurontin) 400 MG capsuleIndications :Chronic low back pain, unspecified back pain laterality, unspecified whether sciatica present TAKE 1 CAPSULE BY MOUTH TWICE DAILY IN THE MORNING AND AT NOON AND TAKE 2 CAPSULES AT BEDTIME 120 capsule 5 024 Active cetirizine (ZyrTEC) 10 MG tabletIndications: Seasonal allergic rhinitis, unspecified trigger Take 1 tablet (10 mg) by mouth Once per day. 90 tablet 2 024 Active montelukast (Singulair) 10 MG tablet Take 1 tablet (10 mg) by mouth at bedtime. 90 tablet 024 Active DULoxetine (Cymbalta) [address] capsuleIndications :Posttraumatic stress disorder TAKE 1 CAPSULE BY MOUTH EVERY DAY 30 capsule 024 Active Ventolin HFA 108 (90 Base) MCG/ACT inhalerIndications :Mild persistent asthma without complication INHALE 2 PUFFS BY MOUTH EVERY 6 HOURS NEEDED FOR WHEEZING 18 g 1 025 Active LORazepam (Ativan) 2 MG tabletIndications: Anxiety TAKE 1 TABLET BY MOUTH TWICE DAILY IN THE MORNING AND IN THE EVENING NEEDED FOR ANXIETY. 56 tablet 025 Active lisinopril 5 MG tablet TAKE 1 TABLET BY MOUTH EVERY DAY 90 tablet 1 025 Active docusate sodium (Colace) 100 MG capsule TAKE 1 CAPSULE BY MOUTH TWICE DAILY NEEDED 180 capsule 1 025 Active pantoprazole (ProtoNix) 40 MG EC tabletIndications: Chronic gastroesophageal reflux disease TAKE 1 TABLET BY MOUTH TWICE DAILY BEFORE MEALS 180 tablet 1 025 Active Diclofenac Sodium 1 % gel Apply 2 g topically if needed in the morning, at noon, in the evening, and at bedtime (pain). 150 g 3 025 Active zolpidem (Ambien) 10 MG tabletIndications: Anxiety TAKE 1 TABLET BY MOUTH AT BEDTIME NEEDED FOR SLEEP 7 tablet Active fluticasone (Flovent HFA) 220 MCG/ACT inhalerIndications :Moderate asthma with acute exacerbation, unspecified whether persistent Inhale 4 puffs twice daily 12 g 2 022 08/30 Discontinued Anoro Ellipta 62.5-25 MCG/ACT aerosol powder INHALE 1 PUFF BY MOUTH EVERY DAY 023 08/30 Discontinued ibuprofen 400 MG tablet Take 1 tablet (400 mg) by mouth every 8 (eight) hours if needed for moderate pain or fever for up to 30 doses. 15 tablet 023 08/30 Discontinued docusate sodium (Colace) 100 MG capsule TAKE 1 CAPSULE BY MOUTH TWICE DAILY NEEDED 180 capsule 1 024 08/21 Discontinued lisinopril 5 MG tablet TAKE 1 TABLET BY MOUTH EVERY DAY 90 tablet 1 024 08/21 Discontinued pantoprazole (ProtoNix) 40 MG EC tabletIndications: Chronic gastroesophageal reflux disease TAKE 1 TABLET BY MOUTH TWICE DAILY BEFORE MEALS 180 tablet 1 024 08/21 Discontinued zolpidem (Ambien) 10 MG tabletIndications: Anxiety TAKE 1 TABLET BY MOUTH AT BEDTIME NEEDED for SLEEP 7 tablet 024 09/03 Discontinued traMADol (Ultram) 50 MG tabletIndications: Chronic pain of both knees TAKE 1 TABLET BY MOUTH EVERY 6 HOURS NEEDED FOR SEVERE PAIN. 112 tablet 025 08/19 Discontinued traMADol (Ultram) 50 MG tabletIndications: Chronic pain of both knees TAKE 1 TABLET BY MOUTH EVERY 6 HOURS NEEDED FOR SEVERE PAIN 40 tablet 025 08/31 predniSONE (Deltasone) 20 MG tablet Take 1 tablet (20 mg) by mouth 2 times daily for 5 days. 10 tablet 025 09/04 Active Problems Patient Care Coordination No te Formatting of this note migh t be different from the original. C3/CM Celia Brown RN Problem Noted Date Diagnosed Date Fibromyalgia 08/22/2023 Prediabetes 06/22/2023 Bilateral knee pain 11/24/2022 Chronic restrictive lung disease 11/24/2022 Coronary artery disease 11/24/2022 History of COVID-19 11/24/2022 Fatty liver 11/24/2022 Gall bladder polyp 11/24/2022 Obstructive sleep apnea 07/29/2022 Essential hypertension 07/29/2022 Overview (12/28/2022): Lisinopril has not been filled since 05/26/22 (Dr. Yap, 30 ds). Patient currently only actively filling amlodipine from Dr. Gallegos for HTN. Please advise on medication status. If BP continues to be elevated consider restarting lisinopril 5 mg once daily, monitor BP and Scr in 2-4 weeks of initiation. History of Helicobacter pylori infection 023 Chronic migraine 07/29/2022 Chronic gastroesophageal reflux disease 07/29/19 23 Moderate persistent asthma 07/29/2022 Asthma-COPD overlap syndrome 07/29/2022 BMI 40.0-44.9, adult 07/29/2022 History of robot-assisted laparoscopic hysterect devan 07/29/2022 History of right oophorectomy 07/29/2022 Peripheral arterial disease 06/03/2022 Anxiety 05/26/2017 Hyperlipidemia 11/24/2016 Bipolar disorder 04/02/2015 Posttraumatic stress disorder 04/02/2015 Resolved Problems Problem Noted Date Diagnosed Date Resolved Date Abscess of axilla, right 12/28/2022 Morbid obesity 12/28/2022 08/22/2023 Acute cellulitis 12/28/2022 08/22/2023 Positive blood culture 12/28/202206/22 Abscess 12/28/2022 08/22/2023 Bilateral post-traumatic ost eoarthritis of knee 11/24/2022 11/24/2022 Chest pain 11/24/2022 11/24/2022 Complex ovarian cyst 11/24/2022 023 Heart palpitations 11/24/2022 06/01/202 3 Persistent dyspnea after COVID-19 11/24/2022 11/24/2022 Positive blood culture 11/24/202211/24 Well woman exam 11/24/2022 11/24/2022 Retropharyngeal abscess 08/18/2022 06/0 06/2022 Assessment & Plan (08/18/2022 3:02 PM EST): Pt is here as a walk in. She was initially seen at [facility] on 08/12 for neck swelling, neck pain, sore throat, and mild sob x [address] scan of soft tissue of neck showed tissue swelling at C2-C4 which possibly reflected retropharyngeal cellulitis. Therefore pt. Was transferred to [facility] for an ENT consult. ENT determined no intervention needed at that time and patient was prescribed augmentin bid x 10 days. Dx. Acute pharyngitis. Today she is here with c/o persistent sore throat but less than when she was seen. she is able to drink fluids. Pt. Denies fever or chills.Pt. Confirms she is taking augmentin as ordered and has 4 days left. Plan: Will order repeat CT of neck soft tissues after she finished her Abx ( on or after 08/23/2022 ) ENT referral placed Follow up with PCP Acute otitis media 06/03/2022 3 Exacerbation of intermittent asthma 06/03/2022 07/29/2022 Hypertensive disorder 06/03/20222022 Sore throat 06/03/2022 07/29/2022 Obstructive sleep apnea syndrome 03/30/2016 07/29/2022 Asthma 09/15/2015 07/29/2022 Obesity (BMI 30-39.9) 09/15/20152022 Gastroesophageal reflux disease 09/15/2015 07/29/2022 Uterine leiomyoma 09/15/2015 07/29/2022 Limb swelling 04/02/2015 11/24/2022 Elevated fasting glucose 04/02/201508/2022 Migraine 04/02/2015 07/29/2022 Encounters Date Type Department Care Team Description 09/05/[address] [facility] [address] [place] [phone] Ava Yap, Paperwork/Forms 09/04/2024 Refill [facility] [address] [place] [address] Teetee Matthews MD Chronic pain of both knees; Anxiety 09/02/[address] [facility] [address] [place] [phone] Teetee Matthews MD Anxiety; Chronic pain of both knees 08/30/2024 11:15 AM EST Office Visit [address] [phone] Ava Yap, Essential hypertension (Primary Dx); Other hyperlipidemia; Prediabetes; Fatty liver; Coronary arteriosclerosis; Bipolar disease, chronic (CMS/HCC); Moderate persistent asthma without complication; Obstructive sleep apnea; Chronic migraine; Chronic gastroesophageal reflux disease; Chronic pain of both knees; Pain of right thumb; Healthcare maintenance; Encounter for screening for malignant neoplasm of colon; Screening for colon cancer 08/29/2024 10:00 AM EST Clinical Support [address] [address] Denisha Cross RN Chronic knee pain, unspecified laterality (Primary Dx) 08/29/[address] [address] Denisha Cross RN DATA MANAGEMENT CONSULTANT Renewal today 08/29/2024 Travel 08/19/2024 Refill [facility] [address] [place] [address] Ava Yap DO Chronic gastroesophageal reflux disease 08/15/2024 Refill [facility] [address] [place] [address] Ava Yap DO Chronic pain of both knees 08/02/[address] [facility] [address] [place] [address] Ava Yap, Anxiety 07/19/2024 Refill [facility] [address] [place] [address] Ava Yap, Chronic pain of both knees 07/17/[address] [facility] [address] [place] [phone] Denisha Cross RN Anxiety 07/16/2024 11:00 AM EST Clinical Support [facility] [address] [facility] [place] [address] Denisha Cross RN Chronic knee pain, unspecified laterality (Primary Dx) 07/16/2024 Travel 07/16/[address] [place] [address] Ava Yap DO Appointment Request; Call Back Request 07/16/[address] [facility] [address] [place] [address] Denisha Cross RN Recommend DATA MANAGEMENT CONSULTANT Tier 2 07/08/[address] [facility] [address] [place] [phone] Ava Yap, Mild persistent asthma without complication 06/21/[address] [facility] [address] [place] [phone] Ava Yap DO Anxiety 06/20/[address] [facility] [address] [place] [address] Ava Yap DO Posttraumatic stress disorder 06/18/2024 Orders Only GENERIC EXTERNAL DATA DEPARTMENT Provider, Generic External Data 06/17/[address] [address] Ava Yap DO Nurse Triage 06/14/[address] [address] Ava Yap DO No Show 06/12/[address] [facility] [address] [place], [place] [phone] Ava Yap, Chronic pain of both knees from Last 3 Months Immunizations Name Administration Dates Next Due Hep A, Adult 09/11/2018,03/14/2018 Hep B, adult 09/11/2018,06/27/2018,03/14/2018 [place]a SARS-CoV-2 Vaccination 10/03/2020 Pfizer Covid-19 Vaccine 12+ 06/15/2021 Pneumococcal Polysaccharide PPSV23 04/02/2015 Tdap 12/09/2014 Family History Medical History Relation Name Comments Diabetes Father Lung cancer Father Mental illness Father Coronary artery disease Father's Brother Breast cancer Father's Sister Hypertension Mother Seizures Mother Coronary artery disease Mother's Brother Relation Name Status Comments Father Father's Brother Father's Sister Mother Mother's Brother Social History Tobacco Use Types Packs/Day Years Used Date Smoking Tobacco: Former Passive Smoke Exposure: Never Smokeless Tobacco: Never Tobacco Cessation:Counseling Given: Not Answered Alcohol Use Standard Drinks/Week Comments Never 0 [...] Orientation Straight 04/25/2022 10 :21 AM EDT Last Filed Vital Signs Vital Sign Reading Time Taken Comments Blood Pressure 140/82 08/30/2024 1:24 PM EST Pulse 104 08/30/2024 12:02 PM EST Temperature 36.7 ??C (98 ??F) 08/30/2024 12:02 PM EST Respiratory Rate 20 08/30/2024 12:02 PM EST Oxygen Saturation 96% 11/15/2023 8:54 AM EDT Inhaled Oxygen Concentration - - Weight 102 kg (225 lb 4 oz) 08/30/2024 12:02 PM EST Height 149.9 cm (4' 11 ) 08/30/2024 12:02 PM EST Body Mass Index 45.49 08/30/2024 12:02 PM EST Plan of Treatment Upcoming Encounters Date Type Department Care Team (Late st Contact Info) Description 09/06/2024 2:30 [address] EDT Office Visit [facility] [address] [place] [address] Donnie Palencia DDS [address] [place] [address] 11/28/2024 1:30 PM EDT Clinical Support [facility] [address] [place] [address] Denisha Cross, RN Health Maintenance Due Date Last Done Comments CT Colonography 1971 Colonoscopy 1971 Colorectal Cancer Screening 1971 Dental Oral Exam 1971 Dental Prophylaxis 1971 Dental X-Ray: Bitewings 1971 Dental X-Ray: Full Mouth 1971 FIT DNA/Cologuard 1971 FIT 1971 FOBT 1970 Sigmoidoscopy 1971 Alcohol/Substance Use Screening 1983 Family Planning (PISQ) 12/05/1986 Pap Smear 12/05/1992 Pneumococcal Vaccine: 50+ Years (2 of 2 - PCV) 04/02/2016 04/02/2015 Zoster Vaccines (1 of 2) 12/05/2021 Diabetes: Hemoglobin A1C 12/14/202309/05/ 025, 12/13/2022, 03/14/2022, Additional history exists COVID-19 Vaccine ( season) 2024 06/15/2021, 10/03/2020 Influenza Vaccine (#1) 2024 Depression Screening 06/22/2024 06/22/2023, 06/22/20 Cervical Cancer Screening 08/23/2024 HPV/Cotest 08/23/2024 08/23/2019, 07/22/2016 DTaP/Tdap/Td Vaccines (2 - Td or Tdap) 12/09/2024 12/09/2014 Mammogram 05/04/2025 05/04/2023, 03/27, 12/11/2020, Additional history exists SDOH Screening 08/30/2025 08/30/2024 Tobacco Screening 08/30/2025 08/30/2024 Lipid Panel 05/04/2028 09/05/2024, 1102/2023, 12/13/2022, Additional history exists RSV Patients and Patients Aged 60 years or older (1 - 1-dose 75+ series) 12/05/2046 Hepatitis A Vaccines Completed 09/11/2018, 03/14/20 Hepatitis B Vaccines Completed 09/11/2018, 06/27/2018, 03/14/2018 HIV Screening Completed 12/13/2022, 02/24, 03/17/2021 Hepatitis C Screening Completed 12/13/2022 , 03/14/2022, 03/17/2021 HIB Vaccines Aged Out No longer eligi ble based on patient's age to complete this topic HPV Vaccines Aged Out No longer eligi ble based on patient's age to complete this topic IPV Vaccines Aged Out No longer eligi ble based on patient's age to complete this topic Meningococcal Vaccine Aged Out No sergo dinorah eligible based on patient's age to complete this topic RSV under 20 months Aged Out No longe r eligible based on patient's age to complete this topic Rotavirus Vaccines Aged Out No longer eligible based on patient's age to complete this topic Procedures Procedure Name Priority Date/Time Associated Diagnosis Comments XR HAND 3+ VIEWS RIGHT Routine 09/05/2024 12:05 PM EDT Pain of right thumb ALBUMIN, RANDOM URINE W/CREATININE Routine 09/05/2024 11:10 AM EDT Essential hypertension Other hyperlipidemia Prediabetes Fatty liver Coronary arteriosclerosis Bipolar disease, chronic (CMS/HCC) Moderate persistent asthma without complication Obstructive sleep apnea Chronic migraine Chronic gastroesophageal reflux disease Chronic pain of both knees Pain of right thumb Healthcare maintenance Encounter for screening for malignant neoplasm of colon Screening for colon cancer CBC Routine 09/05/2024 11:10 AM EDT Essential hypertension Other hyperlipidemia Prediabetes Fatty liver Coronary arteriosclerosis Bipolar disease, chronic (CMS/HCC) Moderate persistent asthma without complication Obstructive sleep apnea Chronic migraine Chronic gastroesophageal reflux disease Chronic pain of both knees Pain of right thumb Healthcare maintenance Encounter for screening for malignant neoplasm of colon Screening for colon cancer BASIC METABOLIC PANEL Routine 09/05/2024 11:10 AM EDT Essential hypertension Other hyperlipidemia Prediabetes Fatty liver Coronary arteriosclerosis Bipolar disease, chronic (CMS/HCC) Moderate persistent asthma without complication Obstructive sleep apnea Chronic migraine Chronic gastroesophageal reflux disease Chronic pain of both knees Pain of right thumb Healthcare maintenance Encounter for screening for malignant neoplasm of colon Screening for colon cancer HEMOGLOBIN A1C Routine 09/05/2024 11:10 AM EDT Essential hypertension Other hyperlipidemia Prediabetes Fatty liver Coronary arteriosclerosis Bipolar disease, chronic (CMS/HCC) Moderate persistent asthma without complication Obstructive sleep apnea Chronic migraine Chronic gastroesophageal reflux disease Chronic pain of both knees Pain of right thumb Healthcare maintenance Encounter for screening for malignant neoplasm of colon Screening for colon cancer HEPATIC FUNCTION PANEL Routine 09/05/2024 11:10 AM EDT Essential hypertension Other hyperlipidemia Prediabetes Fatty liver Coronary arteriosclerosis Bipolar disease, chronic (CMS/HCC) Moderate persistent asthma without complication Obstructive sleep apnea Chronic migraine Chronic gastroesophageal reflux disease Chronic pain of both knees Pain of right thumb Healthcare maintenance Encounter for screening for malignant neoplasm of colon Screening for colon cancer TSH Routine 09/05/2024 11:10 AM EDT Essential hypertension Other hyperlipidemia Prediabetes Fatty liver Coronary arteriosclerosis Bipolar disease, chronic (CMS/HCC) Moderate persistent asthma without complication Obstructive sleep apnea Chronic migraine Chronic gastroesophageal reflux disease Chronic pain of both knees Pain of right thumb Healthcare maintenance Encounter for screening for malignant neoplasm of colon Screening for colon cancer LIPID PANEL, STANDARD Routine 09/05/2024 11:10 AM EDT Essential hypertension Other hyperlipidemia Prediabetes Fatty liver Coronary arteriosclerosis Bipolar disease, chronic (CMS/HCC) Moderate persistent asthma without complication Obstructive sleep apnea Chronic migraine Chronic gastroesophageal reflux disease Chronic pain of both knees Pain of right thumb Healthcare maintenance Encounter for screening for malignant neoplasm of colon Screening for colon cancer VITAMIN D,25-OH,TOTAL,IA Routine 09/05/2024 11:10 AM EDT Essential hypertension Other hyperlipidemia Prediabetes Fatty liver Coronary arteriosclerosis Bipolar disease, chronic (CMS/HCC) Moderate persistent asthma without complication Obstructive sleep apnea Chronic migraine Chronic gastroesophageal reflux disease Chronic pain of both knees Pain of right thumb Healthcare maintenance Encounter for screening for malignant neoplasm of colon Screening for colon cancer T4, FREE Routine 09/05/2024 11:10 AM EDT Essential hypertension Other hyperlipidemia Prediabetes Fatty liver Coronary arteriosclerosis Bipolar disease, chronic (CMS/HCC) Moderate persistent asthma without complication Obstructive sleep apnea Chronic migraine Chronic gastroesophageal reflux disease Chronic pain of both knees Pain of right thumb Healthcare maintenance Encounter for screening for malignant neoplasm of colon Screening for colon cancer POCT ELISEO-14 URINE DRUG SCREEN Routine 08/29/2024 10:14 AM EST Chronic knee pain, unspecified laterality POCT ELISEO-14 URINE DRUG SCREEN Routine 07/16/2024 11:13 AM EST Chronic knee pain, unspecified laterality BLOOD CULTURE (SECOND) Routine 06/18/2024 4:33 PM EST HIGH SENSITIVITY TROPONIN I Routine 06/18/2024 4:03 PM EST LIPASE Routine 06/18/2024 4:03 PM EST MAGNESIUM Routine 06/18/2024 4:03 PM EST BASIC METABOLIC PANEL Routine 06/18/2024 4:03 PM EST HEPATIC FUNCTION PANEL Routine 06/18/2024 4:03 PM EST LACTIC ACID Routine 06/18/2024 4:03 PM EST CBC WITH AUTO DIFFERENTIAL Routine 06/18/2024 4:03 PM EST BLOOD CULTURE (FIRST) Routine 06/18/2024 4:03 PM EST SARS COV2/INFLUENZA A/B AND RSV RNA QL NAAT Routine 06/18/2024 4:03 PM EST STREP A NUCLEIC ACID Routine 06/18/2024 4:03 PM EST XR CHEST 2 VIEWS Routine 06/18/2024 3:49 PM EST BI MAMMOGRAM SCREENING TOMOSYNTHESIS BILATERAL Routine 05/04/2023 1:45 PM EST HEPATITIS C AB W/RFL RNA, PCR W/RFL GENOTYPE,LIPA Routine 12/13/2022 9:24 AM EDT Essential hypertension HIV 1/2 ANTIGEN/ANTIBODY, FOURTH GENERATION W/RFL Routine 12/13/2022 9:24 AM EDT Essential hypertension ZZZ HISTORICAL HPV E6/E7 RFLX EMLER 16 18/45 Routine 08/23/2019 11:30 AM EST from Last 3 Months or Most Recently Relevant to Health Maintenance Results * XR Hand 3+ Views Right (09/05/2024 12:05 PM EDT) Anatomical Region Laterality Modality Upper Extremities, Hand Right [facility]iogra [facility] 09/05/2024 12:0 5 PM EDT Narrative 09/05/2024 12:48 PM EDT ? [facility] ?[address] ?[place] [address] ?XRay Report ? Signed ? Patient: Asif Muhamamd,Ximena ?MR#: ?? [id number] ? : 1970 ?Acct:[id number] ? Age/Sex: 53 / F ?ADM Date: 03/13/25 ? Loc: HO.HHCL ? Attending Dr: Ava Yap DO ? Ordering Physician: Ava Yap DO ?? Date of Service: 09/05/24 ?? Procedure(s): XR hand RT min 3V ?? Accession Number(s): [id number] ? cc: Ava Yap DO ? EXAMINATION: ?? XR HAND, RIGHT ? CLINICAL INFORMATION: ?? R thumb pain and swelling x 1 mos ? COMPARISON: ?? None available. ? TECHNIQUE: ?? Four views of the right hand/thumb. ? FINDINGS: ?? The bones and soft tissues are normal. No fracture. Alignment is ?? anatomic. Joint spaces are maintained. No erosions or soft tissue ?? calcifications. ? XR/XR hand RT min 3V ?? IMPRESSION: ?? Normal right hand and thumb. ? Electronically signed by: ??Nicolas Barba MD ??09/05/2024 12:46 PM EDT RP ? Dictated By: ?Nicolas Barba MD ? Signed By: ?<Electronically signed by Nicolas Barba MD in OV> ?09/05/24 1246 ? DD/ 1205 ? TD/TT: 09/05/24 1223 ? Rock Breaker: ? Procedure Note Serenity Daniels - 09/05/2024 [place] [address] XRay Report Signed Patient: Kody Xiong#: [id number] : 1970Acct:[id number] Age/Sex: 53 / FADM Date: 09/05/24 Loc: HO.HHCL Attending Dr: Ava Yap DO Ordering Physician: Ava Yap DO Date of Service: 09/05/24 Procedure(s): XR hand RT min 3V Accession Number(s): [id number] cc: Ava Yap DO EXAMINATION: XR HAND, RIGHT CLINICAL INFORMATION: R thumb pain and swelling x 1 mos COMPARISON: None available. TECHNIQUE: Four views of the right hand/thumb. FINDINGS: The bones and soft tissues are normal. No fracture. Alignment is anatomic. Joint spaces are maintained. No erosions or soft tissue calcifications. XR/XR hand RT min 3V IMPRESSION: Normal right hand and thumb. Electronically signed by: Nicolas Braba MD 09/05/2024 12:46 PM EDT Dictated By: Nicolas Barba MD Signed By: <Electronically signed by Nicolas Barba MD in OV> 09/05/24 1246 DD/ 1205 TD/TT: 09/05/24 1223 Rock Breaker: us Ava Fracisco DO IMG XR PROCEDURES Edited Res ult - Final * (ABNORMAL) Vitamin D, 25-Hydroxy, Total, Immunoassay (09/05/2024 11:10 AM EDT) Vitamin D 25-OH Total 25.6(L) >30 ng/mL [facility] Comment: Health Based Reference Values*< 20 ??ng/mL ??Fvyjnafin12-30 ng/mL ??Insufficient> 30 ??ng/mL ??Sufficient*Rafi NUÑEZ. N Engl J Med. 2007;[id number]:266-280There is no well-established upper level of normal vitamin Dlevels. Some laboratories use 50 ng/mL as an upper limit ofnormal. However, toxicity is patient-dependent and may occurat any level. Careful correlation with the patient'spresentation is necessary and, if there is concern forvitamin D toxicity, treatment should be consideredirrespective of the serum level.Care must be taken in interpreting Vitamin D results fromdifferent laboratories and methodologies. ??Published datademonstrated that results from patients undergoinghemodialysis may show a negative bias when tested withvarious automated 25-OH vitamin D assays when compared toLC- MS/MS.When testing samples from patients whose predominant form ofVitamin D is Vitamin D2, such as patients receiving VitaminD2 supplementation, results that are subtherapeutic shouldbe confirmed with another method such as LC-MS/MS. Blood Venous blood specimen / Unknown 09/05/2024 11:10 AM EDT 09/05/2024 1:25 PM EDT Ava Fracisco DO LAB BLOOD ORDERABLES Final R esult Performing Organization Address [facility] Co de Phone Number [facility] [address] [place] [address] [phone] * Albumin, Random Urine W/Creatinine (09/05/2024 11:10 AM EDT) Creatinine, Urine 63.20 mg/dL [facility] Microalbumin Urine 16.0 mg/L [facility] Microalbum Creatinine Ratio Ur 25.3 <30 ug/mg cr [facility] Comment:Albumin/Creatinine R atio Reference Ranges: Normal: < 30 ug/mg creatinine Microalbuminuria: 30 - 300 ug/mg creatinineClinical Albuminuria: > 300 ug/mg creatinine Urine (Urine, Random) 09/05/2024 11:10 AM EDT 09/05/2024 1:03 PM EDT Ava Yap DO LAB URINE ORDERABLES Final R esult Performing Organization Address [facility] Co de Phone Number [facility] [address] [place] [phone] * CBC (09/05/2024 11:10 AM EDT) White Blood Count 6.4 4.8 - 10.8 X10*3/uL [facility] Red Blood Count 4.43 4.20 - 5.50 X10*6/uL [facility] Hemoglobin 13.6 12.0 - 16.0 g/dl [facility] Hematocrit 39.6 37.0 - 47.0 % [facility] Mean Corpuscular Volume 89.4 80.0 - 98.0 fL [facility] Mean Corpuscular Hemoglobin 30.7 27.0 - 33.0 pg [facility] Mean Corpuscular HGB Conc 34.3 31.0 - 35.0 g/dl [facility] Red Cell Distribution Width 13.2 11.0 - 16.0 % [facility] Platelet Count 268 160 - 400 X10*3/uL [facility] Mean Platelet Volume 11.2 9.4 - 12.3 fL [facility] NRBC Pct Auto 0.0 0.0 - 0.2 /100WBC [facility] NRBC Abs Auto 0.000 0.0 - 0.012 X10*3/uL [facility] Blood Venous blood specimen / Unknown 09/05/2024 11:10 AM EDT 09/05/2024 1:22 PM EDT Ava Yap DO LAB BLOOD ORDERABLES Final R esult Performing Organization Address City/[facility]/ZIP Co de Phone Number [facility] [address] [place] [phone] * TSH (09/05/2024 11:10 AM EDT) Thyroid Stimulating Hormone 2.68 0.32 - 4.0 uIU/mL [facility] Comment:Note: A sustained TS H level above 2.5 uIU/mL may warrant further investigation. TSH 3rd Generation ([employer]) Blood Venous blood specimen / Unknown 09/05/2024 11:10 AM EDT 09/05/2024 1:25 PM EDT Ava Yap DO LAB BLOOD ORDERABLES Final R esult Performing Organization Address City/[facility]/ZIP Co de Phone Number [facility] [address] [place] [phone] * T4, Free (09/05/2024 11:10 AM EDT) Free T4 (Free Thyroxine) 1.05 0.71 - 1.85 ng/dL [facility] Blood Venous blood specimen / Unknown 09/05/2024 11:10 AM EDT 09/05/2024 1:25 PM EDT Ava Yap DO LAB BLOOD ORDERABLES Final R esult [facility] [address] [place] [phone] * Hemoglobin A1c (09/05/2024 11:10 AM EDT) Hemoglobin A1c 6.0 <6.0 % [facility] Comment:Hemoglobin A1C Refer ence Range Adults: 4.8 - 6.0 % Non diabetic: < 6.0 % Goal: < 7.0 %Additional Action Suggested: > 8.0 %Note: Hemoglobin A1c results are invalid for patients with abnormal amounts of HbF. Blood transfusions may impact the HbA1c concentration in the patient sample. Estimated Average Glucose 126 mg/dL [facility] Comment:eAG = Estimated ave rage glucose which is %A1C expressed asaverage glucose, using the formula of the I7Y-CmndtklAtuniqw Glucose study (ADAG), Diabetes Care, Vol.31,#8,Jan. 2007 Blood Venous blood specimen / Unknown 09/05/2024 11:10 AM EDT 09/05/2024 1:22 PM EDT Ava Yap Boyibang LAB BLOOD ORDERABLES Final R esult [facility] [address] [place] [phone] * (ABNORMAL) Hepatic Function Panel (09/05/2024 11:10 AM EDT) Only the most recent of2 resultswithin the time period is included. Bilirubin, Total 0.4 0.0 - 1.0 mg/dL [facility] Bilirubin, Direct 0.1 0.0 - 0.5 mg/dL [facility] Aspartate Amino Transferase 26 5 - 31 U/L [facility] Alanine Aminotransferase 33(H) 0 - 31 U/L [facility] Total Protein 8.0 6.5 - 8.0 g/dL [facility] Albumin Level 4.5 3.5 - 5.0 g/dL [facility] Alkaline Phosphatase 84 39 - 117 U/L [facility] Blood Venous blood specimen / Unknown 09/05/2024 11:10 AM EDT 09/05/2024 1:25 PM EDT Ava Ypa LAB BLOOD ORDERABLES Final R esult Performing Organization Address [facility] Co de Phone Number [facility] [address] [place] [address] [phone] * (ABNORMAL) Lipid Panel, Standard (09/05/2024 11:10 AM EDT) Triglycerides 344(H) <150 mg/dL [facility] Comment:Desirable Triglyceri de: less than 150 mg/dLBorderline High Triglyceride 150-199 mg/dLHigh Triglyceride: 200-499 mg/dLVery High Triglyceride: greater than or equal to 5OO mg/dL Cholesterol 273(H) <200 mg/dL [facility] Comment:Desirable Cholestero l: less than 200 mg/dLBorderline High Cholesterol: 200-239 mg/dLHigh Cholesterol: greater than 239 mg/dL LDL Cholesterol Calculated 161(H) <100 mg/dL [facility] Comment:Desirable LDL: less than 100 mg/dLNear Optimal/Above Optimal LDL: 110- 129 mg/dLBorderline High LDL: 130-159 mg/dLHigh LDL: 160-189 mg/dLVery High LDL: greater than or equal to 190 mg/dL HDL Cholesterol 44 >40 mg/dL [facility] Comment:Desirable HDL: great er than 40 mg/dL Note: This HDL assay may give artificially low results in patients with liver disease. Blood Venous blood specimen / Unknown 09/05/2024 11:10 AM EDT 09/05/2024 1:25 PM EDT us Ava Yap DO LAB BLOOD ORDERABLES Final R esult Performing Organization Address City/[facility]/ZIP Co de Phone Number [facility] [address] [place] [phone] * Basic Metabolic Panel (09/05/2024 11:10 AM EDT) Only the most recent of2 resultswithin the time period is included. Sodium 140 135 - 145 mmol/L [facility] Potassium 3.9 3.3 - 5.1 mmol/L [facility] Chloride 108 96 - 108 mmol/L [facility] Carbon Dioxide 24 22 - 29 mmol/L [facility] Anion Gap 12 12 - 20 [facility] Urea Nitrogen (BUN) 12 9 - 16 mg/dL [facility] Creatinine, Serum 0.74 0.5 - 1.4 mg/dL [facility] Estimated Glomerular Filt Rate >60 [facility] Comment:Chronic Kidney Disea se: Estimated GFR < 60 mL/min/1.25g0Ptoaof Kidney Disease: Estimated GFR < 15 mL/min/1.73m2 Glucose 107 60 - 115 mg/dL [facility] Calcium 9.7 8.4 - 10.2 mg/dL [facility] Blood Venous blood specimen / Unknown 09/05/2024 11:10 AM EDT 09/05/2024 1:25 PM EDT Ava Yap DO LAB BLOOD ORDERABLES Final R esult [facility] [address] [place] [phone] * POCT ELISEO-14 Urine Drug Screen (08/29/2024 10:14 AM EST) Only the most recent of2 resultswithin the time period is included. Benzodiazepines Screen, Urine Positive Urine Urine specimen obtained by clean catch procedure / Unknown 08/29/2024 10:14 AM EST Denisha Schroeder RN - 08/29/2024 10:14 AM EST [employer] cup Lot#[id number] Exp. 02/12/26 Internal Pass Control us Ava Yap DO POINT OF CARE TEST ENTER/HILARIO T ORDERABLES Final Result * Blood Culture (Second) (06/18/2024 4:33 PM EST) Blood Venous blood specimen / Unknown 06/18/2024 4:33 PM EST 06/18/2024 4:36 PM EST Comment:Blood Narrative [facility] - 06/23/2024 6:36 PM EST Blood Culture (Second) No growth after 5 days. Specimen Source: Blood Generic External Data Provider LAB MICROBIOLOGY - GENERAL ORDERABLES Final Result Performing Organization Address City/[facility]/ZIP Co de Phone Number [facility] [address] [place] [phone] * Blood Culture (First) (06/18/2024 4:03 PM EST) Blood Venous blood specimen / Unknown 06/18/2024 4:03 PM EST 06/18/2024 4:10 PM EST Comment:Blood Narrative [facility] - 06/23/2024 6:10 PM EST Blood Culture (First) No growth after 5 days. Specimen Source: Blood Generic External Data Provider LAB MICROBIOLOGY - GENERAL ORDERABLES Final Result Performing Organization Address City/[facility]/ZIP Co de Phone Number [facility] [address] [place] [phone] * Strep A Nucleic Acid (06/18/2024 4:03 PM EST) Pathologist [facility] SERIAL# [id number] [facility] Strep A Nucleic Acid Negative Negative [facility] Comment:All test results mus t be correlated with clinical findings.This test has not been evaluated for monitoring treatment ofinfection.Additional follow-up testing using the culture method isrequired if the result is negative and clinical symptomspersist, or in the event of an acute rheumatic feveroutbreak. 06/18/2024 4:03 PM EST 06/18/2024 4:10 PM EST Generic External Data Provider LAB MICROBIOLOGY - GENERAL ORDERABLES Final Result Performing Organization Address [facility] Co de Phone Number [facility] [address] [place] [phone] * High Sensitivity Troponin I (06/18/2024 4:03 PM EST) [facility] TROPONIN I HIGH SENSITIVITY <2.7 <3.5 - 17.0 ng/L [facility] Comment:The [employer] high sens itivity Troponin-I results should beused in conjunction with other diagnostic information suchas ECG, clinical observations and information, and patientsymptoms to aid in the diagnosis of [place]. 06/18/2024 4:03 PM EST 06/18/2024 4:10 PM EST Generic External Data Provider LAB BLOOD ORDERAB LES Final Result Performing Organization Address [facility] Co de Phone Number [facility] [address] [place] [phone] * (ABNORMAL) SARS-CoV-2 RNA, Influenza A/B, and RSV RNA, Ql NAAT (06/18/2024 4:03 PM EST) [facility] Influenza A PCR POSITIVE(A) Negative [facility] Influenza B PCR NEGATIVE Negative [facility] Resp Syncy Virus RNA Qual PCR NEGATIVE Negative [facility] SARS COV2 PCR NEGATIVE Negative [facility] Comment:All test results mus t be [...] use by authorized laboratories.Testing performed on the [employer] GeneXpert utilizingreal-time RT-PCR.All SARS CoV2 and positive influenza A/B results arereported to [facility]. 06/18/2024 4:03 PM EST 06/18/2024 4:10 PM EST us Generic External Data Provider LAB MICROBIOLOGY - GENERAL ORDERABLES Final Result [facility] [address] [place] [phone] * (ABNORMAL) CBC auto differential (06/18/2024 4:03 PM EST) White Blood Count 5.7 4.8 - 10.8 X10*3/uL [facility] Red Blood Count 4.22 4.20 - 5.50 X10*6/uL [facility] Hemoglobin 13.1 12.0 - 16.0 g/dl [facility] Hematocrit 37.8 37.0 - 47.0 % [facility] Mean Corpuscular Volume 89.6 80.0 - 98.0 fL [facility] Mean Corpuscular Hemoglobin 31.0 27.0 - 33.0 pg [facility] Mean Corpuscular HGB Conc 34.7 31.0 - 35.0 g/dl [facility] Red Cell Distribution Width 13.3 11.0 - 16.0 % [facility] Platelet Count 217 160 - 400 X10*3/uL [facility] Mean Platelet Volume 10.6 9.4 - 12.3 fL [facility] Neutrophils Percent Auto 73.4(H) 45 - 73 % [facility] Imm Gran Pct Auto 0.2 0.0 - 0.4 % [facility] Lymphocytes Percent Auto 12.2(L) 20 - 40 % [facility] Monocytes Percent Auto 13.8(H) 2 - 11 % [facility] Eosinophils Percent Auto 0.2 0 - 4 % [facility] Basophils Percent Auto 0.2 0 - 2 % [facility] NRBC Pct Auto 0.0 0.0 - 0.2 /100WBC [facility] Neutrophils Absolute Auto 4.2 2.0 - 8.3 x10*3/uL [facility] Imm Gran Abs Auto 0.01 0.00 - 0.03 X10*3/uL [facility] Lymphocytes Absolute Auto 0.7(L) 1.2 - 4.9 X10*3/uL [facility] Monocytes Absolute Auto 0.8 0.1 - 1.2 X10*3/uL [facility] Eosinophils Absolute Auto 0.0 0.0 - 0.4 X10*3/uL [facility] Basophils Absolute Auto 0.0 0.0 - 0.2 X10*3/uL [facility] NRBC Abs Auto 0.000 0.0 - 0.012 X10*3/uL [facility] 06/18/2024 4:03 PM EST 06/18/2024 4:10 PM EST us Generic External Data Provider LAB BLOOD ORDERAB LES Final Result Performing Organization Address City/[facility]/ZIP Co de Phone Number [facility] [address] [place] [phone] * Magnesium (06/18/2024 4:03 PM EST) Magnesium 2.0 1.6 - 2.6 mg/dL [facility] 06/18/2024 4:03 PM EST 06/18/2024 4:10 PM EST us Generic External Data Provider LAB BLOOD ORDERAB LES Final Result Performing Organization Address [facility] Co de Phone Number [facility] [address] [place] [phone] * Lipase (06/18/2024 4:03 PM EST) Lipase 15 8 - 78 U/L [facility] 06/18/2024 4:03 PM EST 06/18/2024 4:10 PM EST us Generic External Data Provider LAB BLOOD ORDERAB LES Final Result Performing Organization Address [facility] de Phone Number [facility] [address] [place] [phone] * Lactic Acid (06/18/2024 4:03 PM EST) Lactic Acid 1.2 0.5 - 2.0 mmol/L [facility] 06/18/2024 4:03 PM EST 06/18/2024 4:10 PM EST us Generic External Data Provider LAB BLOOD ORDERAB LES Final Result Performing Organization Address [facility] de Phone Number [facility] [address] [place] [phone] * XR Chest 2 Views (06/18/2024 3:49 PM EST) Anatomical Region Laterality Modality Chest Radiographic Nieves ging 06/18/2024 3:49 PM EST Narrative 06/18/2024 4:42 PM EST ? [facility] ?[address] ?[place] [address] ?XRay Report ? Signed ? Patient: Ximena Xiong ?MR#: ?? [id number] ? : 1970 ?Acct:[id number] ? Age/Sex: 53 / F ?ADM Date: 06/18/24 ? Loc: HO.ED ? Attending Dr: ? Ordering Physician: Anushka Dozier ?? Date of Service: 06/18/24 ?? Procedure(s): XR chest 2V ?? Accession Number(s): [id number] ? cc: Ava Yap DO; Anushka Dozier ? EXAMINATION: ?? XR CHEST ? CLINICAL INFORMATION: ?? fever, cough ? COMPARISON: ?? 03/27/2024 ? TECHNIQUE: ?? 2 views of the chest were obtained. ? FINDINGS: ?? No significant abnormality is noted involving the heart, lungs, ?? mediastinum, bony thorax or soft tissues. ? XR/XR chest 2V ?? IMPRESSION: ?? No acute disease or interval change ? Electronically signed by: ??Clayton Jaeger MD ??06/18/2024 04:40 PM EST RP ? Dictated By: ?Clayton Jaeger MD ? Signed By: ?<Electronically signed by Clayton Jaeger MD in OV> ?06/18/24 1640 ? DD/ 1549 ? TD/TT: 06/18/24 1616 ? Rock Breaker: ? Procedure Note Dondanilo, Serenity - 06/18/[address] [address] XRay Report Signed Patient: Kody Xiong#: [id number] : 1970Acct:[id number] Age/Sex: 53 / FADM Date: 06/18/24 Loc: .ED Attending Dr: Ordering Physician: Anushka Dozier Date of Service: 06/18/24 Procedure(s): XR chest 2V Accession Number(s): [id number] cc: Ava Yap DO; Anushka Dozier EXAMINATION: XR CHEST CLINICAL INFORMATION: fever, cough COMPARISON: 03/27/2024 TECHNIQUE: 2 views of the chest were obtained. FINDINGS: No significant abnormality is noted involving the heart, lungs, mediastinum, bony thorax or soft tissues. XR/XR chest 2V IMPRESSION: No acute disease or interval change Electronically signed by: Clayton Jaeger MD 06/18/2024 04:40 PM EST Dictated By: Clayton Jaeger MD Signed By: <Electronically signed by Clayton Jaeger MD in OV> 06/18/24 1640 DD/ 1549 TD/TT: 06/18/24 1616 Rock Breaker: [facility] External Provider IMG XR PROCEDURES Edited Result - Final * BI Mammogram Screening Tomosynthesis Bilateral (05/04/2023 1:45 PM EST) Anatomical Region Laterality Modality Breast Bilateral Mammography 05/04/2023 1:45 PM EST Narrative 05/22/2023 6:55 AM EST ? [facility] ? [address] ?[place] [address] ? Mammography Report ? Signed ? Patient: Asif Muhammad,Ximena ?MR#: ?? [id number] ? : 1970 ?Acct:[id number] ? Age/Sex: 52 / F ?ADM Date: 05/04/23 ? Loc: HO.MAMMO ? Attending Dr: Ava Yap DO ? Ordering Physician: Ava Yap DO ?Results: 1N ?? egative ? Date of Service: 05/04/23 ?Follow Up: 1 Year From Orig ?? inal Mammogram ? Procedure(s): MM tomosynthesis screening BI ?? Accession Number(s): [id number] ? cc: Ava Yap DO ? EXAMINATION: ?? MM SCREENING DIGITAL BREAST TOMOSYNTHESIS, BILATERAL ? CLINICAL INFORMATION: ? Screening. Asymptomatic. ? COMPARISON: ?? Mammography: This study is compared with prior exams dating back to ?? 2017. ? TECHNIQUE: ?? Digital breast tomosynthesis is performed in both the craniocaudal and ?? mediolateral oblique views along with computer-aided detection (CAD). ?? Synthesized 2D images are generated from the tomosynthesis. ? FINDINGS: ?? There are scattered areas of fibroglandular density (ACR BI-RADS breast ?? composition Category b). ? There are no significant masses, abnormal calcifications, or other ?? abnormalities. ? MM/MM tomosynthesis screening BI ?? IMPRESSION: ?? No mammographic evidence of malignancy. ? ASSESSMENT: ? BI-RADS BI-RADS 1 - Negative ? RECOMMENDATION: ?? Routine annual mammography screening. ? 1 year F/U ? This examination should not preclude the clinical evaluation of a ?? suspicious palpable abnormality. ? This patient's information was entered into a reminder system with a ?? target due date for their next mammogram. ? Dictated By: ?Ana Buchanan MD ? Signed By: ?<Electronically signed by Ana Buchanan MD in OV> ? 05/22/23 0651 ? DD/ 1345 ? TD/TT: ? Rock Breaker: ? Procedure Note Dontamicater, Image - 05/22/2023 [facility] [address] [place] [address] Mammography Report Signed Patient: Kody Xiong#: [id number] : 1970Acct:[id number] Age/Sex: 52 / FADM Date: 05/04/23 Loc: HO.MAMMO Attending Dr: Ava Yap DO Ordering Physician: Ava Yapults: 1N egative Date of Service: 05/04/23Follow Up: 1 Year From Orig inal Mammogram Procedure(s): MM tomosynthesis screening BI Accession Number(s): [id number] cc: Ava Yap DO EXAMINATION: MM SCREENING DIGITAL BREAST TOMOSYNTHESIS, BILATERAL CLINICAL INFORMATION: Screening. Asymptomatic. COMPARISON: Mammography: This study is compared with prior exams dating back to 2017. TECHNIQUE: Digital breast tomosynthesis is performed in both the craniocaudal and mediolateral oblique views along with computer-aided detection (CAD). Synthesized 2D images are generated from the tomosynthesis. FINDINGS: There are scattered areas of fibroglandular density (ACR BI-RADS breast composition Category b). There are no significant masses, abnormal calcifications, or other abnormalities. MM/MM tomosynthesis screening BI IMPRESSION: No mammographic evidence of malignancy. ASSESSMENT: BI-RADS BI-RADS 1 - Negative RECOMMENDATION: Routine annual mammography screening. 1 year F/U This examination should not preclude the clinical evaluation of a suspicious palpable abnormality. This patient's information was entered into a reminder system with a target due date for their next mammogram. Dictated By: Ana Buchanan MD Signed By: <Electronically signed by Ana Buchanan MD in OV> 05/22/23 0651 DD/ 1345 TD/TT: Rock Breaker: Ava Yap DO IMG BI PROCEDURES Final Resu lt * Hepatitis C Antibody with Reflex to HCV RNA,PCR w/Reflex to Genotype, Li[facility] (12/13/2022 9:24 AM EDT) Hepatitis C Antibody NON-REACT JORGE NON-REACT JORGE [employer] [place] [employer] Comment: HCV antibody was non-reactive. There is no laboratory evidence of HCV infection. In most cases, no further action is required. However, if recent HCV exposure is suspected, a test for HCV RNA (test code 88673) is suggested. For additional information, please refer to http://education.[employer]faq/AEL821 (This link is being provided for informational/ educational purposes only.) 12/13/2022 9:24 AM EDT 12/13/2022 9:24 AM EDT Narrative [facility] - 12/27/2022 5:12 PM EDT FASTING:YES FASTING: YES Ava Yap DO LAB BLOOD ORDERABLES Final R esult [facility] [address], [place] [phone] [employer] [place] [employer] [address] [place] [phone] * HIV-1/2 Antigen and Antibodies, Fourth Generation, with Reflexes (12/13/2022 9:24 AM EDT) Pathologist [facility] HIV Antigen/Antibody, 4th Generation NON-REAC TIVE NON-REAC TIVE [employer] [facility] Comment: HIV-1 antigen and HIV-1/HIV-2 antibodies were not detected. There is no laboratory evidence of HIV infection. PLEASE NOTE: This information has been disclosed to you from records whose confidentiality may be protected by state law. ??If your state requires such protection, then the state law prohibits you from making any further disclosure of the information without the specific written consent of the person to whom it pertains, or as otherwise permitted by law. A general authorization for the release of medical or other information is NOT sufficient for this purpose. ?? For additional information please refer to http://education.[employer]/faq/UMT017 (This link is being provided for informational/ educational purposes only.) The performance of this assay has not been clinically validated in patients less than 2 years old. Blood Venous blood specimen / Unknown 12/13/2022 9:24 AM EDT 12/13/2022 9:24 AM EDT Narrative [facility] - 12/27/2022 5:12 PM EDT FASTING:YES FASTING: YES Ava Yap DO LAB BLOOD ORDERABLES Final R esult [facility] [address], [address] [place], [place] [phone] [employer] [facility] [address] [place] [address] * HPV E6/E7 RFLX ELMER 16 18/45 (08/23/2019 11:30 AM EST) [facility] ADDITIONAL TESTING Not indicated () [facility] Comment: Test Performed by Ijeoma Hernandez, [employer] [facility], [address] [place], [place] Jorge López M.D., Ph.D., Director of Laboratories , [place] [id number] HPV 16 RNA Test not performed [facility] HPV 18/45 RNA Test not performed [facility] HPV mRNA E6/E7 Not Detected NOT DETECTED [facility] Comment: This test was performed using the APTIMA(R) HPV Assay ([employer] This assay detects E6/E7 viral messenger RNA (mRNA) from 14 high-risk HPV types (16,18,31,33,35,39,45,51, 52,56,58,59,66,68). For additional information please refer to: http://education.[employer]/faq/XMU022x4 (This link is being provided for informational/ educational purposes only.) The analytical performance characteristics of this assay have been determined by [employer] [place], [place]. The modifications have not been cleared or approved by the FDA. This assay has been validated pursuant to the CLIA regulations and is used for clinical purposes. Please note: ??Effective 03/07/2016, HPV testing will be performed using [employer]'s APTIMA test which targets mRNA. Detecting mRNA instead of DNA, as in older methods, offers significant improvements in specificity. 08/23/2019 11:3 0 AM EST us Ava Yap DO HISTORICAL/NON ORDERABLE LAB S Final Result [facility] [address] from Last 3 Months or Most Recently Relevant to Health Maintenance Insurance [facility] ST[facility] ADULT Care Teams Dish Room Worker Relationship Specialty Start Date End Date Ava Yap DO [address] [place] [address] PCP - General Family Medicine 03/28/11 Avelina Hodges Base FillerHat Conditioner 04/21/23
--- OUTSIDE RECORDS SUMMARY | 2024-09-05 14:19 | XMS_ITS | Encounter Summary ---
Author Organization [employer] Address [address] [facility] [address] [address] Care Team Providers Care Crm Consultant Name Role Phone FraciscoAva Primary Care Provider + [phone] Reason for Visit * Reason Onset Date Comments PATIENT SAFETY TECH Renewal today 08/29/2024 Encounter Details Date Type Department Care Team ([facility] st Contact Info) Description 08/29/2024 Telephone [facility] [address] [place] [address] Denisha Cross RN PATIENT SAFETY TECH Renewal today Social History Tobacco Use Types Packs/Day Years [...] your housing situation today? I have prieto ofrrest 08/30/[address] you li [...] Telephone Encounter - Denisha Cross RN - 08/29/2024 10:19 AM EST Pt had PATIENT SAFETY TECH Renewal appt today BPI updated Pain severity score of 7, activity interference score of 5.3. Previous BPI completed 05/15/24 with pain severity score of 5.8, activity interference score of 7.4. DAVID-7 updated today, pt scored a 13, previous DAVID-7 completed 05/15/24 with a score of 18. Reminded of PCP appt tomorrow, she said she will definitely be there. documented in this encounter Plan of Treatment Upcoming Encounters Date Type Department Care Team (Late st Contact Info) Description 09/06/2024 2:30 PM EDT Office Visit [facility] [address] [place] [address] Donnie Palencia DDS [address] [place] [address] 11/28/2024 1:30 PM EDT Clinical Support [facility] [address] [place] [address] Denisha Cross, RN documented as of this encounter Visit Diagnoses Not on filedocumented in this encounter Additional Health Concerns Assessment Noted Time PHQ-9 Depression Total Score: 5 06/22/20 10:59 AM EST documented as of this encounter Care Teams Crm Consultant Relationship Specialty Start Date End Date Ava Yap DO [address] [place] [phone] PCP - General Family Medicine 03/28/11 Avelina Hodges Hydration Plant OperatorStapling Machine Operator 04/21/23 documented as of this encounter
--- OUTSIDE RECORDS SUMMARY | 2024-09-05 14:19 | XMS_ITS | Encounter Summary ---
Author Organization [employer] Address [address] [place] [address] [address] [address] Care Team Providers Care Cottonseed Meat Presser Name Role Phone Ava Yap DO Primary Care Provider + [phone] Reason for Referral * Imaging (Routine) - Closed Specialty Diagnoses / Procedures Referred By Tulioac t Referred To Contact Radiology Diagnoses Encounter for screening for malignant neoplasm of colon Procedures BI Mammogram Screening Tomosynthesis Bilateral Ava Yap DO [address] [place] [address] Phone: tel: fax: [facility] [address] [place] [address] Phone: tel: fax: Referral ID Status Reason Start Date Expiration Date Visits Re quested Visits Authorized [id number] Closed 08/30/2024 08/30/2025 1 1 * Consultation (Routine) - Pending Review Specialty Diagnoses / Procedures Referred By Contac t Referred To Contact Orthopaedic Surgery Diagnoses Pain of right thumb Ava Yap DO [address] [place] [address] Phone: tel: fax: Referral ID Status Reason Start Date Expiration Date Visits Requested Visits Authorized [id number] Pending Review Specialty Services Required 08/30/2024 08/30/2025 1 1 * Consultation (Routine) - Authorized Specialty Diagnoses / Procedures Referred By Deanna t Referred To Contact Psychiatry / Behavioral Health Diagnoses Bipolar disease, chronic (CMS/HCC) Ava Yap DO [address] [place] [address] Phone: tel: fax: Referral ID Status Reason Start Date Expiration Date Visits Requested Visits Authorized [id number] Authorized Specialty Services Required 08/30/2024 08/30/2025 1 1 Encounter Details Date Type Department Care Team (Latest Contact Info) Description 08/30/2024 11:15 AM EST Office Visit [facility] [address] [place] [address] Ava Yap DO [address] [place] [address] Essential hypertension (Primary Dx); Other hyperlipidemia; Prediabetes; Fatty liver; Coronary arteriosclerosis; Bipolar disease, chronic (CMS/HCC); Moderate persistent asthma without complication; Obstructive sleep apnea; Chronic migraine; Chronic gastroesophageal reflux disease; Chronic pain of both knees; Pain of right thumb; Healthcare maintenance; Encounter for screening for malignant neoplasm of colon; Screening for colon cancer Social History Tobacco Use Types Packs/Day Years [...] AM EDT documented as of this encounter Last Filed Vital Signs Vital Sign Reading Time Taken Comments Blood Pressure 140/82 08/30/2024 1:24 PM EST Pulse 104 08/30/2024 12:02 PM EST Temperature 36.7 ??C (98 ??F) 08/30/2024 12:02 PM EST Respiratory Rate 20 08/30/2024 12:02 PM EST Oxygen Saturation - - Inhaled Oxygen Concentration - - Weight 102 kg (225 lb 4 oz) 08/30/2024 12:02 PM EST Height 149.9 cm (4' 11 ) 08/30/2024 12:02 PM EST Body Mass Index 45.49 08/30/2024 12:02 PM EST documented in this encounter Plan of Treatment Upcoming Encounters Date Type Department Care Team (Late st Contact Info) Description 09/06/2024 2:30 PM EDT Office Visit [facility] [address] [place] [address] Donnie Palencia DDS [address] [place] [address] 11/28/2024 1:30 PM EDT Clinical Support [facility] [address] [place] [address] Denisha Cross, RN Scheduled Orders Name Type Priority Associated Diagnoses Orde r Schedule Cologuard?? colon cancer screening Lab Routine Screening for colon cancer Ordered: 08/30/2024 Hepatitis B surface antigen, EIA Lab Routine Essential hypertension Other hyperlipidemia Prediabetes Fatty liver Coronary arteriosclerosis Bipolar disease, chronic (CMS/HCC) Moderate persistent asthma without complication Obstructive sleep apnea Chronic migraine Chronic gastroesophageal reflux disease Chronic pain of both knees Pain of right thumb Healthcare maintenance Encounter for screening for malignant neoplasm of colon Screening for colon cancer Expected: 08/30/2024 (Approximate), Expires: 08/30/2025 Chlamydia/N. Gonorrhoeae RNA, TMA, Urogenitial Microbiology Routine Essential hypertension Other hyperlipidemia Prediabetes Fatty liver Coronary arteriosclerosis Bipolar disease, chronic (CMS/HCC) Moderate persistent asthma without complication Obstructive sleep apnea Chronic migraine Chronic gastroesophageal reflux disease Chronic pain of both knees Pain of right thumb Healthcare maintenance Encounter for screening for malignant neoplasm of colon Screening for colon cancer Ordered: 08/30/2024 HIV-1/2 Antigen and Antibodies, Fourth Generation, with Reflexes Lab Routine Essential hypertension Other hyperlipidemia Prediabetes Fatty liver Coronary arteriosclerosis Bipolar disease, chronic (CMS/HCC) Moderate persistent asthma without complication Obstructive sleep apnea Chronic migraine Chronic gastroesophageal reflux disease Chronic pain of both knees Pain of right thumb Healthcare maintenance Encounter for screening for malignant neoplasm of colon Screening for colon cancer Expected: 08/30/2024 (Approximate), Expires: 08/30/2025 Hepatitis C Antibody with Reflex to HCV, RNA, Quantitative, Real-Time PCR Lab Routine Essential hypertension Other hyperlipidemia Prediabetes Fatty liver Coronary arteriosclerosis Bipolar disease, chronic (CMS/HCC) Moderate persistent asthma without complication Obstructive sleep apnea Chronic migraine Chronic gastroesophageal reflux disease Chronic pain of both knees Pain of right thumb Healthcare maintenance Encounter for screening for malignant neoplasm of colon Screening for colon cancer Expected: 08/30/2024, Expires: 08/30/2025 RPR (Monitor) with Reflex to??Titer Lab Routine Essential hypertension Other hyperlipidemia Prediabetes Fatty liver Coronary arteriosclerosis Bipolar disease, chronic (CMS/HCC) Moderate persistent asthma without complication Obstructive sleep apnea Chronic migraine Chronic gastroesophageal reflux disease Chronic pain of both knees Pain of right thumb Healthcare maintenance Encounter for screening for malignant neoplasm of colon Screening for colon cancer Expected: 08/30/2024, Expires: 08/30/2025 Hepatitis B Surface Antibody, Qualitative Lab Routine Essential hypertension Other hyperlipidemia Prediabetes Fatty liver Coronary arteriosclerosis Bipolar disease, chronic (CMS/HCC) Moderate persistent asthma without complication Obstructive sleep apnea Chronic migraine Chronic gastroesophageal reflux disease Chronic pain of both knees Pain of right thumb Healthcare maintenance Encounter for screening for malignant neoplasm of colon Screening for colon cancer Expected: 08/30/2024 (Approximate), Expires: 08/30/2025 Hepatitis A Antibody, Total Lab Routine Essential hypertension Other hyperlipidemia Prediabetes Fatty liver Coronary arteriosclerosis Bipolar disease, chronic (CMS/HCC) Moderate persistent asthma without complication Obstructive sleep apnea Chronic migraine Chronic gastroesophageal reflux disease Chronic pain of both knees Pain of right thumb Healthcare maintenance Encounter for screening for malignant neoplasm of colon Screening for colon cancer Expected: 08/30/2024 (Approximate), Expires: 08/30/2025 Hepatitis B Core Antibody, Total Lab Routine Essential hypertension Other hyperlipidemia Prediabetes Fatty liver Coronary arteriosclerosis Bipolar disease, chronic (CMS/HCC) Moderate persistent asthma without complication Obstructive sleep apnea Chronic migraine Chronic gastroesophageal reflux disease Chronic pain of both knees Pain of right thumb Healthcare maintenance Encounter for screening for malignant neoplasm of colon Screening for colon cancer Expected: 08/30/2024 (Approximate), Expires: 08/30/2025 Alpha-Fetoprotein, Tumor Marker Lab Routine Essential hypertension Other hyperlipidemia Prediabetes Fatty liver Coronary arteriosclerosis Bipolar disease, chronic (CMS/HCC) Moderate persistent asthma without complication Obstructive sleep apnea Chronic migraine Chronic gastroesophageal reflux disease Chronic pain of both knees Pain of right thumb Healthcare maintenance Encounter for screening for malignant neoplasm of colon Screening for colon cancer Expected: 08/30/2024 (Approximate), Expires: 08/30/2025 BI Mammogram Screening Tomosynthesis Bilateral Imaging Routine Encounter for screening for malignant neoplasm of colon Expected: 08/30/2024, Expires: 10/30/2025 Scheduled Referrals Name Type Priority Associated Diagnoses Order Schedule Referral to Behavioral Health Psychiatry Outpatient Referral Routine Bipolar disease, chronic (CMS/HCC) Expected: 08/30/2024 (Approximate), Expires: 08/30/2025 Referral to Orthopaedic Surgery Outpatient Referral Routine Pain of right thumb Expected: 08/30/2024 (Approximate), Expires: 08/30/2025 documented as of this encounter Procedures Procedure Name Priority Date/Time Associated Diagnosis Comments XR HAND 3+ VIEWS RIGHT Routine 09/05/2024 12:05 PM EDT Pain of right thumb VITAMIN D,25-OH,TOTAL,IA Routine 09/05/2024 11:10 AM EDT Essential hypertension Other hyperlipidemia Prediabetes Fatty liver Coronary arteriosclerosis Bipolar disease, chronic (CMS/HCC) Moderate persistent asthma without complication Obstructive sleep apnea Chronic migraine Chronic gastroesophageal reflux disease Chronic pain of both knees Pain of right thumb Healthcare maintenance Encounter for screening for malignant neoplasm of colon Screening for colon cancer ALBUMIN, RANDOM URINE W/CREATININE Routine 09/05/2024 11:10 [...] neoplasm of colon Screening for colon cancer documented in this encounter Results * XR Hand 3+ Views Right (09/05/2024 12:05 PM EDT) Anatomical Region Laterality Modality Upper Extremities, Hand Right Radiogra phic Imaging 09/05/2024 12:0 5 PM EDT Narrative 09/05/2024 12:48 PM EDT ? [facility] ?[address] ?[place] [address] ?XRay Report ? Signed ? Patient: Asif Muhammad,Ximena ?MR#: ?? [id number] ? : 1970 ?Acct:[id number] ? Age/Sex: 53 / F ?ADM Date: 03/13/25 ? Loc: HO.HHCL ? Attending Dr: Ava Yap DO ? Ordering Physician: Ava Yap DO ?? Date of Service: 09/05/24 ?? Procedure(s): XR hand RT min 3V ?? Accession Number(s): [id number] ? cc: Ava Yap DO ? EXAMINATION: [...] DD/ 1205 ? TD/TT: 09/05/24 1223 ? Marine Photographer: ? Procedure Note Frances, Serenity - 09/05/[address] [address] XRay Report Signed Patient: Heath XiongR#: [id number] : 1970Acct:[id number] Age/Sex: 53 / FADM Date: 09/05/24 Loc: HO.HHCL Attending Dr: Ava Yap DO Ordering Physician: Ava Yap DO Date of Service: 09/05/24 Procedure(s): XR hand RT min 3V Accession Number(s): [id number] cc: Ava Yap DO EXAMINATION: XR HAND, [...] hand and thumb. Electronically signed by: Nicolas Barba MD 09/05/2024 12:46 PM EDT RP Dictated By: Nicolas Barba MD Signed By: <Electronically signed by Nicolas Barba MD in OV> 09/05/24 1246 DD/ 1205 TD/TT: 09/05/24 1223 Marine Photographer: us Ava Yap DO IMG XR PROCEDURES Edited Res ult - Final * Albumin, Random Urine W/Creatinine (09/05/2024 11:10 AM EDT) Creatinine, Urine 63.20 mg/dL [facility] Microalbumin Urine 16.0 mg/L [facility] Microalbum Creatinine Ratio Ur 25.3 <30 ug/mg cr [facility] Comment:Albumin/Creatinine R atio Reference Ranges: Normal: < 30 ug/mg creatinine Microalbuminuria: 30 - 300 ug/mg creatinineClinical Albuminuria: > 300 ug/mg creatinine Urine (Urine, Random) 09/05/2024 11:10 AM EDT 09/05/2024 1:03 PM EDT us Ava Yap DO LAB URINE ORDERABLES Final R esult [facility] [address] [place] [phone] * CBC (09/05/2024 11:10 AM EDT) White Blood Count 6.4 4.8 - 10.8 X10*3/uL [facility] Red Blood Count 4.43 4.20 - 5.50 X10*6/uL [facility] Hemoglobin 13.6 12.0 - 16.0 g/dl [facility] Hematocrit 39.6 37.0 - 47.0 % [facility] Mean Corpuscular Volume 89.4 80.0 - 98.0 fL [facility] Mean Corpuscular Hemoglobin 30.7 27.0 - 33.0 pg [facility] Mean Corpuscular HGB Conc 34.3 31.0 - 35.0 g/dl [facility] Red Cell Distribution Width 13.2 11.0 - 16.0 % [facility] Platelet Count 268 160 - 400 X10*3/uL [facility] Mean Platelet Volume 11.2 9.4 - 12.3 fL [facility] NRBC Pct Auto 0.0 0.0 - 0.2 /100WBC [facility] NRBC Abs Auto 0.000 0.0 - 0.012 X10*3/uL [facility] Blood Venous blood specimen / Unknown 09/05/2024 11:10 AM EDT 09/05/2024 1:22 PM EDT us Ava Yap DO LAB BLOOD ORDERABLES Final R esult [facility] [address] [place] [address] [phone] * Basic Metabolic Panel (09/05/2024 11:10 AM EDT) Sodium 140 135 - 145 mmol/L [facility] Potassium 3.9 3.3 - 5.1 mmol/L [facility] Chloride 108 96 - 108 mmol/L [facility] Carbon Dioxide 24 22 - 29 mmol/L [facility] Anion Gap 12 12 - 20 [facility] Urea Nitrogen (BUN) 12 9 - 16 mg/dL [facility] Creatinine, Serum 0.74 0.5 - 1.4 mg/dL [facility] Estimated Glomerular Filt Rate >60 [facility] Comment:Chronic Kidney Disea se: Estimated GFR < 60 mL/min/1.55y8Ptidae Kidney Disease: Estimated GFR < 15 mL/min/1.73m2 Glucose 107 60 - 115 mg/dL [facility] Calcium 9.7 8.4 - 10.2 mg/dL [facility] Blood Venous blood specimen / Unknown 09/05/2024 11:10 AM EDT 09/05/2024 1:25 PM EDT us Ava Yap DO LAB BLOOD ORDERABLES Final R esult [facility] [address] [place] [phone] * Hemoglobin A1c (09/05/2024 11:10 AM EDT) Hemoglobin A1c 6.0 <6.0 % [facility] Comment:Hemoglobin A1C Refer ence Range Adults: 4.8 - 6.0 % Non diabetic: < 6.0 % Goal: < 7.0 %Additional Action Suggested: > 8.0 %Note: Hemoglobin A1c results are invalid for patients with abnormal amounts of HbF. Blood transfusions may impact the HbA1c concentration in the patient sample. Estimated Average Glucose 126 mg/dL [facility] Comment:eAG = Estimated ave rage glucose which is %A1C expressed asaverage glucose, using the formula of the K9O-DztzdkjNiudzda Glucose study (ADAG), Diabetes Care, Vol.31,#8,Jan. 2007 Blood Venous blood specimen / Unknown 09/05/2024 11:10 AM EDT 09/05/2024 1:22 PM EDT us Ava Yap DO LAB BLOOD ORDERABLES Final R esult [facility] [address] [place] [phone] * (ABNORMAL) Hepatic Function Panel (09/05/2024 11:10 AM EDT) Bilirubin, Total 0.4 0.0 - 1.0 mg/dL [facility] Bilirubin, Direct 0.1 0.0 - 0.5 mg/dL [facility] Aspartate Amino Transferase 26 5 - 31 U/L [facility] Alanine Aminotransferase 33(H) 0 - 31 U/L [facility] Total Protein 8.0 6.5 - 8.0 g/dL [facility] Albumin Level 4.5 3.5 - 5.0 g/dL [facility] Alkaline Phosphatase 84 39 - 117 U/L [facility] Blood Venous blood specimen / Unknown 09/05/2024 11:10 AM EDT 09/05/2024 1:25 PM EDT Ava Yap LAB BLOOD ORDERABLES Final R esult Performing Organization Address [facility] Co de Phone Number [facility] [address] [place] [phone] * TSH (09/05/2024 11:10 AM EDT) Thyroid Stimulating Hormone 2.68 0.32 - 4.0 uIU/mL [facility] Comment:Note: A sustained TS H level above 2.5 uIU/mL may warrant further investigation. TSH 3rd Generation ([facility]) Blood Venous blood specimen / Unknown 09/05/2024 11:10 AM EDT 09/05/2024 1:25 PM EDT Ava Yap LAB BLOOD ORDERABLES Final R esult Performing Organization Address [facility] de Phone Number [facility] [address] [place] [phone] * (ABNORMAL) Lipid Panel, Standard (09/05/2024 11:10 AM EDT) Triglycerides 344(H) <150 mg/dL [facility] Comment:Desirable Triglyceri de: less than 150 mg/dLBorderline High Triglyceride 150-199 mg/dLHigh Triglyceride: 200-499 mg/dLVery High Triglyceride: greater than or equal to 5OO mg/dL Cholesterol 273(H) <200 mg/dL [facility] Comment:Desirable Cholestero l: less than 200 mg/dLBorderline High Cholesterol: 200-239 mg/dLHigh Cholesterol: greater than 239 mg/dL LDL Cholesterol Calculated 161(H) <100 mg/dL [facility] Comment:Desirable LDL: less than 100 mg/dLNear Optimal/Above Optimal LDL: 110- 129 mg/dLBorderline High LDL: 130-159 mg/dLHigh LDL: 160-189 mg/dLVery High LDL: greater than or equal to 190 mg/dL HDL Cholesterol 44 >40 mg/dL [facility] Comment:Desirable HDL: great er than 40 mg/dL Note: This HDL assay may give artificially low results in patients with liver disease. Blood Venous blood specimen / Unknown 09/05/2024 11:10 AM EDT 09/05/2024 1:25 PM EDT us Ava Yap DO LAB BLOOD ORDERABLES Final R esult [facility] [address] [place] [phone] * (ABNORMAL) Vitamin D, 25-Hydroxy, Total, Immunoassay (09/05/2024 11:10 AM EDT) Vitamin D 25-OH Total 25.6(L) >30 ng/mL [facility] Comment: Health Based Reference Values*< 20 ??ng/mL ??[id number] ng/mL ??Insufficient> 30 ??ng/mL ??Sufficient*Rafi NUÑEZ. N [...] ORDERABLES Final R esult Performing Organization Address City/[facility]/ZIP Co de Phone Number [facility] [address] [place] [phone] * T4, Free (09/05/2024 11:10 AM EDT) Free T4 (Free Thyroxine) 1.05 0.71 - 1.85 ng/dL [facility] Blood Venous blood specimen / Unknown 09/05/2024 11:10 AM EDT 09/05/2024 1:25 PM EDT Ava Yap DO LAB BLOOD ORDERABLES Final R esult Performing Organization Address City/[facility]/ZIP Co de Phone Number [facility] [address] [place] [phone] documented in this encounter Visit Diagnoses Diagnosis Essential hypertension- Primary Unspecified essential hypertension Other hyperlipidemia Prediabetes Other abnormal glucose Fatty liver Other chronic nonalcoholic liver disease Coronary arteriosclerosis Coronary atherosclerosis of unspecified type of vessel, [place] or graft Bipolar disease, chronic (CMS/HCC) Moderate persistent asthma without complication Obstructive sleep apnea Obstructive sleep apnea (adult) (pediatric) Chronic migraine Chronic gastroesophageal reflux disease Chronic pain of both knees Pain of right thumb Healthcare maintenance Encounter for screening for malignant neoplasm of colon Screening for colon cancer Special screening for malignant neoplasms, colon documented in this encounter Additional Health Concerns Assessment Noted Time PHQ-9 Depression Total Score: 5 06/22/20 23 10:59 AM EST documented as of this encounter Care Teams Cottonseed Meat Presser Relationship Specialty Start Date End Date Ava Yap DO [address] [place] [phone] PCP - General Family Medicine 03/28/11 Avelina Hodges [employer] OperatorRn Community 04/21/23 documented as of this encounter
[2024-09-05 15:50] LABS: CT PCR NOT DETECTED (Not Detect.); NG PCR NOT DETECTED (Not Detect.)
[2024-09-06 04:05] LABS: HBS Num1 0.32 mIU/mL (0-7.99); HBc Num1 0.07 S/CO (0.00-0.79); HBsAGNum1 0.31 S/CO (0.00-0.99); HIV AB/AG Nonreactive (Nonreactive); HIV Num 1 0.07 S/CO (0.00-0.99); Hepatitis B Core Antibody Nonreactive (Nonreactive); Hepatitis B Surface Antigen Negative (Negative); ~HepC Num1 0.09 S/CO (0.00-0.79); ~Hepatitis B Surface Antibody NONREACTIVE (Nonreactive); ~Hepatitis C Antibody Nonreactive (Nonreactive)
[2024-09-07 12:38] LABS: RPR Rapid Plasma Reagin NON-REACTIVE (NON-REACTIVE)
[2024-09-09 13:08] LABS: Alpha Fetoprotein 1.6 ng/mL
[2024-09-11 08:54] LABS: Hepatitis A Antibody IgG REACTIVE (Nonreactive); ~Hepatitis A Antibody IgG 3.53 S/CO (0.00-0.99)
== END 2024-09-05 11:07 | disposition home or self-care (01) ==
LOC: HO.HHCL 11:06
PROVIDERS: Visit Provider Family Medicine
DX: Z00.00 Encounter for general adult medical examination without abnormal findings (principal); I10 Essential (primary) hypertension; E78.49 Other hyperlipidemia; R73.03 Prediabetes; K76.0 Fatty (change of) liver, not elsewhere classified; I25.10 Atherosclerotic heart disease of native coronary artery without angina pectoris; F31.9 Bipolar disorder, unspecified; J45.40 Moderate persistent asthma, uncomplicated; G47.33 Obstructive sleep apnea (adult) (pediatric); G43.909 Migraine, unspecified, not intractable, without status migrainosus; K21.9 Gastro-esophageal reflux disease without esophagitis; M25.561 Pain in right knee; M25.562 Pain in left knee; G89.29 Other chronic pain; Z12.11 Encounter for screening for malignant neoplasm of colon; M79.644 Pain in right finger(s)
CPT/HCPCS: 73130; 80048; 80061; 80076; 82043; 82105; 82306; 82570; 83036; 84439; 84443; 85027; 86592; 86704; 86706; 86708; 86803; 87340; 87389; 87491; 87591

== ENCOUNTER → 2024-09-05 12:05 | Outpatient (BNV) | payer MEDICAID, SELFPAY | PROVIDERS: Visit Provider Radiology Diagnostic Radiology | DX: M79.644 Pain in right finger(s) (principal) | CPT/HCPCS: 73130 ==

== ENCOUNTER 2024-09-06 13:28 | Outpatient (AMB) | payer MEDICAID, SELFPAY ==
--- NOTE | 2024-09-06 13:29 | A.OFFVIS_ITS ---
VS Expanded 09/06/24 13:34 BP 126/61 Blood Pressure Location Rt brachial Blood Pressure Position Sitting Pulse 90 Pulse Source Pulse Oximeter Temp 97.9 F Temperature Source Temporal Artery Scan Pulse Oximetry 97 Oxygen Delivery Method Room Air Height 4 ft 9 in Weight 220 lb 12.8 oz BMI 47.8 Body Fat % 43.7 Body Fat Mass 96.4 Fat Free Mass 124.4 Visceral Fat Rating 14.0 Body Water % 40.1 Body Water Mass 88.4 Muscle Mass/Score 118.2 Basal Metabolic Rate/Score 1,731 Intake Visit Reasons: OV f/u SWL Six Sigma Black Trainer Required: Yes Six Sigma Black Trainer Services: Six Sigma Black Trainer Present Six Sigma Black Trainer Name: hospital cmi Allergies loratadine [From CLARITIN] Allergy (Mild, Verified 09/06/24 13:35) CHILLS AND DIFF BREATHING Medication List - Last Reconciled 09/06/24 by CHRISTIE Shaikh acetaminophen 500 mg PO Q6H PRN albuterol sulfate 90 mcg/actuation 1 inh inhalation QID PRN albuterol sulfate 1 amp inhalation Q4H PRN amlodipine 10 mg PO DAILY cetirizine 10 mg PO DAILY cholecalciferol (vitamin D3) 50 mcg PO DAILY CPAP (CPAP Machine/Device) As directed docusate sodium (Colace) 100 mg PO DAILY PRN doxycycline monohydrate 100 mg PO BID 14 days duloxetine 60 mg PO DAILY evolocumab (Repatha SureClick) 140 mg subcut Q2W ezetimibe 10 mg PO DAILY famotidine 40 mg PO BEDTIME fenofibrate 54 mg PO DAILY fluticasone propionate 50 mcg/actuation 2 sprays intranasal DAILY hchimafkaws-ccpifnebw-mytdqrux 200-62.5-25 mcg (Trelegy Ellipta) 1 inh inhalation DAILY 30 days gabapentin 400 caps PO BID ibuprofen 600 mg PO Q8H PRN ibuprofen 600 mg PO Q6H PRN ibuprofen 600 mg PO Q8H PRN 14 days lisinopril 5 mg PO DAILY lorazepam (Ativan) 2 mg PO BEDTIME PRN montelukast (Singulair) 10 mg PO BEDTIME 30 days multivit-iron sulf-folic acid 15 mg iron- 400 mcg (Tab-A-Colton Multivitamin w- iron) 1 tab PO DAILY naloxone 4 mg/actuation 1 spray intranasal ONCE PRN nebulizers As directed ondansetron 4 mg PO Q8H PRN polyethylene glycol 3350 (Miralax) 17 grams PO DAILY roflumilast (Daliresp) 250 mcg PO DAILY 30 days rosuvastatin 40 mg PO DAILY sennosides (Natural Senna Laxative) 8.6 mg PO BEDTIME sumatriptan succinate 50 mg PO Q2-4H PRN tramadol 50 mg PO BID PRN umeclidinium-vilanterol 62.5-25 mcg/actuation (Anoro Ellipta) 1 inh inhalation DAILY zolpidem (Ambien) 5 mg PO BEDTIME PRN HPI Comments Details: The patient is a pleasant 53 year old female who returns to the clinic for pre- operative surgical weight loss management. They were last seen in the office on 02/28/2024 for her 1st appointment, recorded weight at that time was 224 pounds, with a BMI of 48.5. Today's weight is 220.8 pounds and BMI is 43.1. There has been a weight loss of 4.8 pounds since initiating the surgical weight loss program on 02/28/2024 with a total body weight loss of 2.1 %. She was given information regarding the right BMI edward at the time of her initial appointment. She states that she did not follow the meal plan consistently. She started it but then there were many things that happened in her life and she was unable to continue to follow them. She additionally states that she is not sure why she missed 5 appointments since her initial appointment. She states that she has had many things go on in her life, ?a 1000 things? and has been unable to follow through. Meal plan: nothing formal Exercise plan: treadmill, stationary bike at home Treadmill or bike 2 x per week, 200-300 caridad [facility] Medical History Epigastric pain Pre-op chest exam Chronic restrictive lung disease NAM treated with BiPAP Asthma-COPD overlap syndrome Sleep apnea Fibromyalgia Hypertension Fatty liver Gall bladder polyp Acid reflux Obesity (BMI 30-39.9) Coronary artery disease Hyperlipidemia Surgical History History of partial hysterectomy History of esophagogastroduodenoscopy History of endometrial ablation Hx of tubal ligation History of cardiac cath Family History Paternal Grandfather No problems noted. Father History of cancer Lung cancer Mother Heart disease Asthma Social History Household Members: Family and Children Housing: House Do you presently have visiting nurse or other home services: No Alcohol intake: never Patient Tobacco Use Status: Former Tobacco user Tobacco use type: Cigarette Years Smoked: 5 years Second Hand Smoke Exposure: No service: No Current occupational status: disabled Sexual orientation: Straight/Heterosexual Gender identity: Female Physical Exam Vital Signs: Last Vital Signs Temp 97.9 F 09/06/24 13:34 Const General: healthy appearing and no acute distress Resp Effort & Inspection: normal respiratory effort Auscultation: clear to auscultation bilaterally Cardio Rate: regular rate Rhythm: regular rhythm GI Auscultation: normal bowel sounds Extrem General: Yes normal to inspection Assessment & Plan Assessment & Plan (1) Morbid obesity: Code(s): E66.01 - Morbid (severe) obesity due to excess calories Category: Medical Plan: Patient was given right BMI information again. Discussed the importance of consistency. She still has my cell phone number. Encouraged to text weekly with her weight and with any questions or concerns. We will give her another opportunity to try to succeed. We will have her return to the office in 2 month s, sooner should she have any questions or concerns.
[2024-09-06 13:34] VITALS: BP 126/61; PULSE 90; TEMP 36.6; O2SAT 97; BMI 47.8
--- OUTSIDE RECORDS SUMMARY | 2024-09-06 15:04 | XMS_ITS | Encounter Summary ---
Author Organization [employer] Address [address] [facility] [address] [place] [address] Care Team Providers Care Resource Engineer Name Role Phone Fracisco Ava Primary Care Provider + [phone] Reason for Visit * Reason Comments Med Refill Encounter Details Date Type Department Care Team ([facility] st Contact Info) Description 02/28/2024 Refill [facility] [address] [place] [address] Johan Kraft MD [address] [place] [address] Social History Tobacco Use Types Packs/Day Years [...] Care Team (Late st Contact Info) Description 11/28/2024 1:30 PM EDT Clinical Support [facility] [address] [place] [phone] Denisha Cross RN documented as of this encounter Visit Diagnoses Not on filedocumented in this encounter Additional Health Concerns Assessment Noted Time PHQ-9 Depression Total Score: 5 06/22/20 23 10:59 AM EST documented as of this encounter Care Teams Resource Engineer Relationship Specialty Start Date End Date Ava Yap DO [address] [place] [address] PCP - General Family Medicine 03/28/11 Avelina Hodges Teradata Solution ArchitectCertified Ophthalmic Technologist 04/21/23 documented as of this encounter
--- OUTSIDE RECORDS SUMMARY | 2024-09-06 15:04 | XMS_ITS | Encounter Summary ---
Author Organization [employer] Address [address] [facility] 7 [place] [address] Care Team Providers Care Bindery Leadperson Name Role Phone Ava Yap DO Primary Care Provider + [phone] Reason for Visit * Reason Onset Date Comments Med Refill Schedule 4 H YOUTH DEVELOPMENT SPECIALIST Initial 04/26/2023 Encounter Details Date Type Department Care Team (Late st Contact Info) Description 04/26/2023 Refill [facility] [address] [place] [address] Ava Yap DO 230 [facility] [place] [address] Anxiety; Chronic bilateral low back pain, unspecified [...] - 04/26/2023 11:55 AM EDT TC via P/I#[id number], male voice answered, stated pt was not available. L/M with Rich requesting pt call back to schedule 4 H YOUTH DEVELOPMENT SPECIALIST Initial appt. documented in this encounter Plan of Treatment Upcoming Encounters Date Type Department Care Team (Late st Contact Info) Description 11/28/2024 1:30 PM EDT Clinical Support [facility] [address] [place] [address] Denisha Cross, RN documented as of this encounter Visit Diagnoses Diagnosis Anxiety Anxiety state, unspecified Chronic bilateral low back pain, unspecified whether sciatica present documented in this encounter Additional Health Concerns Assessment Noted Time PHQ-9 Depression Total Score: 21 023 10:23 AM EDT documented as of this encounter Care Teams Bindery Leadperson Relationship Specialty Start Date End Date Ava Yap DO [address] [place] [address] PCP - General Family Medicine 03/28/11 Avelina Hodges Hurricane TrackerGlass Loading Equipment Tender 04/21/23 documented as of this encounter
--- OUTSIDE RECORDS SUMMARY | 2024-09-06 15:04 | XMS_ITS | Encounter Summary ---
Author Organization [employer] Address [address] [facility] [address], [place] [address] Care Team Providers Care Financial Recruiter Name Role Phone Ava Yap DO Primary Care Provider + [phone] Reason for Visit * Reason Comments Med Refill Encounter Details Date Type Department Care Team ([facility] st Contact Info) Description 07/05/2023 Refill [facility] [address] [place] [address] Ava Yap DO [address] [place] [address] Chronic bilateral low back pain, unspecified whether [...] Description 11/28/2024 1:30 PM EDT Clinical Support [facility] [address] [place] [address] Denisha Cross, DEVI documented as of this encounter Visit Diagnoses Diagnosis Chronic bilateral low back pain, unspecified whether sciatica present Anxiety Anxiety state, unspecified documented in this encounter Additional Health Concerns Assessment Noted Time PHQ-9 Depression Total Score: 5 06/22/20 23 10:59 AM EST documented as of this encounter Care Teams Financial Recruiter Relationship Specialty Start Date End Date Ava Yap DO [address] [place] [address] PCP - General Family Medicine 03/28/11 Avelina Hodges Paragliding InstructorDetention Deputy 04/21/23 documented as of this encounter
--- OUTSIDE RECORDS SUMMARY | 2024-09-06 15:04 | XMS_ITS | Encounter Summary ---
Author Organization [employer] Address [address] [facility] [address], [place] [address] Care Team Providers Care Office Services Coordinator Name Role Phone Ava Yap DO Primary Care Provider + [phone] Reason for Visit * Reason Comments Med Refill Encounter Details Date Type Department Care Team ([facility] st Contact Info) Description 05/03/2024 Refill [facility] [address] [place] [address] Ava Yap DO [address] [place] [address] Anxiety; Chronic pain of both knees Social [...] Description 11/28/2024 1:30 PM EDT Clinical Support [facility] [address] [place] [address] Denisha Cross RN documented as of this encounter Visit Diagnoses Diagnosis Anxiety Anxiety state, unspecified Chronic pain of both knees documented in this encounter Additional Health Concerns Assessment Noted Time PHQ-9 Depression Total Score: 5 06/22/20 23 10:59 AM EST documented as of this encounter Care Teams Office Services Coordinator Relationship Specialty Start Date End Date Ava Yap DO [address] [place] [address] PCP - General Family Medicine 03/28/11 Avelina Hodges Tester Operator HelperRadiography Technician 04/21/23 documented as of this encounter
--- OUTSIDE RECORDS SUMMARY | 2024-09-06 15:04 | XMS_ITS | Encounter Summary ---
Author Organization [employer] [facility] Address [address] [place] [address] Care Team Providers Care It Operations Specialist Name Role Phone Ava Yap DO Primary Care Provider + [phone] Reason for Visit * Reason Comments Med Refill Encounter Details Date Type Department Care Team ([facility] Contact Info) Description 03/19/2023 Refill [facility] [address] [place] [address] Ava Yap DO [address] [place] [address] [id number] Social History Tobacco Use Types Packs/Day Years [...] Upcoming Encounters Date Type Department Care Team ([facility] Contact Info) Description 11/28/2024 1:30 PM EDT Clinical Support [facility] [address] [place] [address] Denisha Cross RN documented as of this encounter Visit Diagnoses Not on filedocumented in this encounter Additional Health Concerns Assessment Noted Time PHQ-9 Depression Total Score: 21 023 10:23 AM EDT documented as of this encounter Care Teams It Operations Specialist Relationship Specialty Start Date End Date Ava Yap DO [address] [place] [address] PCP - General Family Medicine 03/28/11 Avelina Hodges BankmanFactory Supervisor 04/21/23 documented as of this encounter
--- OUTSIDE RECORDS SUMMARY | 2024-09-06 15:04 | XMS_ITS | Clinical Summary ---
Author Organization [facility] Address [address] [place] [address] Care Team Providers Care Account Manager Relief Name Role Phone Pcp, No Primary Care [...] age to complete this topic Care Teams Account Manager Relief Relationship Specialty Start Date End Date Pcp, No PCP - General General Medicine 08/12/22
--- OUTSIDE RECORDS SUMMARY | 2024-09-06 15:04 | XMS_ITS | Encounter Summary ---
Author Organization [employer] Address [address] [place] [address] Care Team Providers Care Fish Drier Name Role Phone Ava Yap DO Primary Care Provider + [phone] Encounter Details Date Type Department Care Team ([facility] Contact Info) Description 07/19/2022 Telephone [facility] MED[facility]INE [address] [place] [phone] Ava Yap DO [address] [place] [address] Social History Tobacco Use Types Packs/Day Years [...] Department Care Team (Late Contact Info) Description 11/28/2024 1:30 PM EDT Clinical Support [facility]INE [address] [place] [address] Denisha Cross RN documented as of this encounter Visit Diagnoses Not on filedocumented in this encounter Care Teams Fish Drier Relationship Specialty Start Date End Date Ava Yap DO [address] [place] [address] PCP - General Family Medicine 03/28/11 Avelina Hodges Revolving Field AssemblerDental Hygienist Mobile Coordinator 04/21/23 documented as of this encounter
--- OUTSIDE RECORDS SUMMARY | 2024-09-06 15:04 | XMS_ITS | Encounter Summary ---
Author Organization [employer] Address [address] [facility] [address] [place] [address] Care Team Providers Care Administrator Of Home Health Name Role Phone Ava Yap DO Primary Care Provider + [phone] Reason for Visit * Reason Comments Med Refill Encounter Details Date Type Department Care Team (Late st Contact Info) Description 08/15/2024 Refill [facility] [address] [place] [address] Ava Yap DO [address] [facility] [place] [address] Chronic pain of both knees Social History [...] Description 11/28/2024 1:30 PM EDT Clinical Support [facility] [address] [place] [address] Denisha Cross, RN documented as of this encounter Visit Diagnoses Diagnosis Chronic pain of both knees documented in this encounter Additional Health Concerns Assessment Noted Time PHQ-9 Depression Total Score: 5 06/22/20 10:59 AM EST documented as of this encounter Care Teams Administrator Of Home Health Relationship Specialty Start Date End Date Ava Yap DO [address] [place] [address] PCP - General Family Medicine 03/28/11 Avelina Hodges Drug PurchaserAutomatic Centrifugal Station Operator 04/21/23 documented as of this encounter
--- OUTSIDE RECORDS SUMMARY | 2024-09-06 15:04 | XMS_ITS | Encounter Summary ---
Author Organization [employer] Address [address] [facility] 7 [place] [address] Care Team Providers Care Americanization Teacher Name Role Phone FraciscoAva Primary Care Provider + [phone] Reason for Visit * Reason Comments Med Refill Encounter Details Date Type Department Care Team (Late st Contact Info) Description 09/04/2024 Refill [facility] [address] [place] [address] Teetee Matthews MD [address] [place] [address] Chronic pain of both knees; Anxiety Social [...] Description 11/28/2024 1:30 PM EDT Clinical Support [facility] [address] [place] [address] Denisha Cross, DEVI documented as of this encounter Visit Diagnoses Diagnosis Chronic pain of both knees Anxiety Anxiety state, unspecified documented in this encounter Additional Health Concerns Assessment Noted Time PHQ-9 Depression Total Score: 5 06/22/20 23 10:59 AM EST documented as of this encounter Care Teams Americanization Teacher Relationship Specialty Start Date End Date Ava Yap DO [address] [place] [address] PCP - General Family Medicine 03/28/11 Avelina Hodges Plug SorterAssociate Professor Of Violin 04/21/23 documented as of this encounter
--- OUTSIDE RECORDS SUMMARY | 2024-09-06 15:04 | XMS_ITS | Encounter Summary ---
Author Organization [employer] Address [address] [place] [address] Care Team Providers Care Sweatband Maker Name Role Phone Ava Yap DO Primary Care Provider + [phone] Encounter Details Date Type Department Care Team ([facility] Contact Info) Description 07/18/2022 Orders Only [facility] CHC MED & PEDS [address] [place] [address] Ava Holt LPN Social History Tobacco Use [...] Description 11/28/2024 1:30 PM EDT Clinical Support [facility] MEDICINE [address] [place] [address] Denisha Cross RN documented as of this encounter Procedures [...] AM EST) Influenza A PCR NEGATIVE Negative [facility] Influenza B PCR NEGATIVE Negative [facility] Resp Syncy Virus RNA Qual PCR NEGATIVE Negative [facility] SARS COV2 PCR NEGATIVE Negative [facility] SARS/Flu/RSV Note See Note [facility] Comment:All test results mus [...] use by authorized laboratories.Testing performed on the [employer] GeneXpert utilizingreal-time RT-PCR.All SARS CoV2 and positive influenza A/B results arereported to [facility]. 08/12/2022 10:3 2 AM EST 08/12/2022 10:37 AM EST us [facility] Exter nal Provider LAB MICROBIOLOGY - GENERAL ORDERABLES Final Result [facility] [address] [place] [phone] * Sed Rate by Modified Mikalergren (08/12/2022 10:32 AM EST) Erythrocyte Sedimentation Rate 16 0 - 20 MM/HR [facility] Comment:Patients with polycy themia and many hemoglobin abnormalitiesmay have depressed sed rates whereas patients with anemiamay have elevated sed rates. 08/12/2022 10:3 2 AM EST 08/12/2022 10:37 AM EST [facility] External Provider LAB BLO OD ORDERABLES Final Result Performing Organization Address City/[facility]/ZIP Co de Phone Number [facility] [address] [place] [address] [phone] * C-reactive Protein (08/12/2022 10:32 AM EST) Pathologist [facility] C Reactive Protein 0.41 < or = 0.50 mg/dL [facility] 08/12/2022 10:3 2 AM EST 08/12/2022 10:37 AM EST [facility] External Provider LAB BLO OD ORDERABLES Final Result [facility] [address] [place] [address] [phone] * (ABNORMAL) Basic Metabolic Panel (08/12/2022 10:32 AM EST) Pathologist [facility] Sodium 142 135 - 145 mmol/L [facility] Potassium 4.3 3.3 - 5.1 mmol/L [facility] Chloride 109(H) 96 - 108 mmol/L [facility] Carbon Dioxide 23 22 - 29 mmol/L [facility] Anion Gap 14 12 - 20 [facility] Urea Nitrogen (BUN) 11 9 - 16 mg/dL [facility] Creatinine, Serum 0.76 0.5 - 1.4 mg/dL [facility] Creatinine Clr Calc Pharmacy 92.0 [facility] Comment:Provided height and weight: 149.86 cm,99.79 kg.eGFR (calculated from the MDRD study equation) and eCrCl(calculated from the Cockcroft-Gault equation) are based ondifferent parameters and may not yield comparable results.If eCrCl result is absurd, please check patient'sheight/weight. Estimated Glomerular Filt Rate >60 [facility] Comment:NOTE: For -Am erican individuals, multiply the result by 1.210.Chronic Kidney Disease: Estimated GFR < 60 mL/min/1.44e6Btxbws Kidney Disease: Estimated GFR < 15 mL/min/1.73m2 Glucose 113 60 - 115 mg/dL [facility] Calcium 9.7 8.4 - 10.2 mg/dL [facility] 08/12/2022 10:3 2 AM EST 08/12/2022 10:37 AM EST us [facility] External Provider LAB BLO OD ORDERABLES Final Result [facility] [address], [place] [phone] * (ABNORMAL) CBC auto differential (08/12/2022 10:32 AM EST) White Blood Count 5.9 4.8 - 10.8 X10*3/uL [facility] Red Blood Count 4.44 4.20 - 5.50 X10*6/uL [facility] Hemoglobin 13.4 12.0 - 16.0 g/dl [facility] Hematocrit 40.5 37.0 - 47.0 % [facility] Mean Corpuscular Volume 91.2 80.0 - 98.0 fL [facility] Mean Corpuscular Hemoglobin 30.2 27.0 - 33.0 pg [facility] Mean Corpuscular HGB Conc 33.1 31.0 - 35.0 g/dl [facility] Red Cell Distribution Width 13.2 11.0 - 16.0 % [facility] Platelet Count 252 160 - 400 X10*3/uL [facility] Mean Platelet Volume 10.7 9.4 - 12.3 fL [facility] Neutrophils Percent Auto 49.0 45 - 73 % [facility] Imm Gran Pct Auto 0.2 0.0 - 0.4 % [facility] Lymphocytes Percent Auto 40.9(H) 20 - 40 % [facility] Monocytes Percent Auto 8.8 2 - 11 % [facility] Eosinophils Percent Auto 0.8 0 - 4 % [facility] Basophils Percent Auto 0.3 0 - 2 % [facility] NRBC Pct Auto 0.0 0.0 - 0.2 /100WBC [facility] Neutrophils Absolute Auto 2.9 2.0 - 8.3 x10*3/uL [facility] Imm Gran Abs Auto 0.01 0.00 - 0.03 X10*3/uL [facility] Lymphocytes Absolute Auto 2.4 1.2 - 4.9 X10*3/uL [facility] Monocytes Absolute Auto 0.5 0.1 - 1.2 X10*3/uL [facility] Eosinophils Absolute Auto 0.1 0.0 - 0.4 X10*3/uL [facility] Basophils Absolute Auto 0.0 0.0 - 0.2 X10*3/uL [facility] NRBC Abs Auto 0.000 0.0 - 0.012 X10*3/uL [facility] 08/12/2022 10:3 2 AM EST 08/12/2022 10:37 AM EST us [facility] External Provider LAB BLO OD ORDERABLES Final Result [facility] [address] [place] [address] [phone] * Strep A Nucleic Acid (08/12/2022 9:10 AM EST) [employer] SERIAL# [id number] [facility] Strep A Nucleic Acid Negative Negative [facility] Comment:All test results mus t be correlated with clinical findings.This test has not been evaluated for monitoring treatment ofinfection.Additional follow-up testing using the culture method isrequired if the result is negative and clinical symptomspersist, or in the event of an acute rheumatic feveroutbreak. 08/12/2022 9:10 AM EST 08/12/2022 9:12 AM EST us [facility] Exter nal Provider LAB MICROBIOLOGY - GENERAL ORDERABLES Final Result [facility] [address] [place] [address] [phone] * CT Chest w/o Contrast (08/09/2022 9:07 AM EST) Anatomical Region Laterality Modality Body, Chest Computed Tomogra phy 08/09/2022 9:07 AM EST Narrative 08/13/2022 11:33 AM EST ? [facility] ?[address] ?[place] [address] ? CT Scan Report ? Signed ? Patient: Ximena Xiong ?MR#: ?? [id number] ? : 1970 ?Acct:[id number] ? Age/Sex: 51 / F ?ADM Date: 08/09/22 ? Loc: HO.CT ? Attending Dr: Ava Yap DO ? Ordering Physician: Ava Yap DO ?? Date of Service: 08/09/22 ?? Procedure(s): CT chest wo IV con ?? Accession Number(s): [id number] ? cc: Ava Yap DO ? EXAMINATION: [...] by Catarino Renteria MD in OV> ? 08/13/22 1131 ? DD/ 0907 ? TD/TT: ? Fulfillment Mail Clerk: SS ? Procedure Note Frances, Image - 08/13/[address] [address] [place] Scan Report Signed Patient: Kody Xiong#: [id number] : 1970Acct:[id number] Age/Sex: 51 / FADM Date: 08/09/22 Loc: HO.CT Attending Dr: Ava Yap DO Ordering Physician: Ava Yap DO Date of Service: 08/09/22 Procedure(s): CT chest wo IV con Accession Number(s): [id number] cc: Ava Yap DO EXAMINATION: CT CHEST [...] in OV> 08/13/22 1131 DD/ 0907 TD/TT: Fulfillment Mail Clerk: MEDARDO [facility] External Provider IMG CT PROCEDURES Edited Result - Final documented in this encounter Visit Diagnoses Not on filedocumented in this encounter Care Teams Sweatband Maker Relationship Specialty Start Date End Date Ava Yap DO [address] [place] [address] PCP - General Family Medicine 03/28/11 Avelina Hodges Director Digital AdvertisingTrichologist 04/21/23 documented as of this encounter
--- OUTSIDE RECORDS SUMMARY | 2024-09-06 15:04 | XMS_ITS | Encounter Summary ---
Author Organization [employer] Address [address] [facility] [address], [place] [address] Care Team Providers Care Sales Producer Name Role Phone Ava Yap DO Primary Care Provider + [phone] Reason for Visit * Reason Comments Med Refill Encounter Details Date Type Department Care Team ([facility] st Contact Info) Description 12/14/2023 Refill [facility] MEDICINE [address] [place] [address] Ava Yap DO [address] [place] [address] Anxiety Social History Tobacco Use Types Packs/Day [...] Description 11/28/2024 1:30 PM EDT Clinical Support [facility] MEDICINE [address] [place] [phone] Denisha Cross RN documented as of this encounter Visit Diagnoses Diagnosis Anxiety Anxiety state, unspecified documented in this encounter Additional Health Concerns Assessment Noted Time PHQ-9 Depression Total Score: 5 06/22/20 23 10:59 AM EST documented as of this encounter Care Teams Sales Producer Relationship Specialty Start Date End Date Ava Yap DO [address] [place] [address] PCP - General Family Medicine 03/28/11 Avelina Hodges Traffic ChiefSenior Financial Accountant 04/21/23 documented as of this encounter
--- OUTSIDE RECORDS SUMMARY | 2024-09-06 15:04 | XMS_ITS | Encounter Summary ---
Author Organization [employer] Address [address] [address] Care Team Providers Care Tool Engineer Name Role Phone Ava Yap DO Primary Care Provider + [phone] Reason for Visit * Reason Comments Med Refill Encounter Details Date Type Department Care Team (Late st Contact Info) Description 01/29/2024 Refill [facility] MEDICINE [address] [place] [address] Ava Yap DO [address] [place] [address] Anxiety; Chronic bilateral low back pain, unspecified [...] Description 11/28/2024 1:30 PM EDT Clinical Support [facility] MEDICINE [address] [place] [address] Denisha Cross, DEVI documented as of this encounter Visit Diagnoses Diagnosis Anxiety Anxiety state, unspecified Chronic bilateral low back pain, unspecified whether sciatica present documented in this encounter Additional Health Concerns Assessment Noted Time PHQ-9 Depression Total Score: 5 06/22/20 23 10:59 AM EST documented as of this encounter Care Teams Tool Engineer Relationship Specialty Start Date End Date Ava Yap DO [address] [place] [address] PCP - General Family Medicine 03/28/11 Avelina Hodges Solid Die CutterSilk Screen Layout Drafter 04/21/23 documented as of this encounter
--- OUTSIDE RECORDS SUMMARY | 2024-09-06 15:04 | XMS_ITS | Encounter Summary ---
Author Organization [employer] Address 75 [facility] [address] [place] [address] Care Team Providers Care Spectrographic Analyst Name Role Phone FraciscoAva Primary Care Provider + [phone] Reason for Visit * Reason Comments Med Refill Encounter Details Date Type Department Care Team ([facility] st Contact Info) Description 08/04/2023 Refill [facility] MEDICINE [address] [place] [address] Vesna Sanabria MD [address] [place] [address] Chronic bilateral low back pain, unspecified whether [...] Description 11/28/2024 1:30 PM EDT Clinical Support [facility] MEDICINE [address] [place] [address] Denisha Cross, DEVI documented as of this encounter Visit Diagnoses Diagnosis Chronic bilateral low back pain, unspecified whether sciatica present documented in this encounter Additional Health Concerns Assessment Noted Time PHQ-9 Depression Total Score: 5 06/22/20 23 10:59 AM EST documented as of this encounter Care Teams Spectrographic Analyst Relationship Specialty Start Date End Date Ava Yap DO [address] [place] [address] PCP - General Family Medicine 03/28/11 Avelina Hodges Superintendent TransmissionGate Supervisor 04/21/23 documented as of this encounter
--- OUTSIDE RECORDS SUMMARY | 2024-09-06 15:04 | XMS_ITS | Encounter Summary ---
Author Organization [employer] Address 75 [facility] [address] [place] [address] Care Team Providers Care Kennel Hand Name Role Phone FraciscoAva Primary Care Provider + [phone] Reason for Visit * Reason Comments Med Refill Encounter Details Date Type Department Care Team (Late st Contact Info) Description 08/04/2023 Refill [facility] MEDICINE [address] [place] [address] Svetlana Mccollum MD [address] [place] [address] Anxiety Social History Tobacco Use Types Packs/Day [...] Description 11/28/2024 1:30 PM EDT Clinical Support [facility] MEDICINE [address] [place] [address] Denisha Cross RN documented as of this encounter Visit Diagnoses Diagnosis Anxiety Anxiety state, unspecified documented in this encounter Additional Health Concerns Assessment Noted Time PHQ-9 Depression Total Score: 5 06/22/20 23 10:59 AM EST documented as of this encounter Care Teams Kennel Hand Relationship Specialty Start Date End Date Ava Yap DO [address] [place] [address] PCP - General Family Medicine 03/28/11 Avelina Hodges Ski Lift AttendantSalesperson Stereo Equipment 04/21/23 documented as of this encounter
--- OUTSIDE RECORDS SUMMARY | 2024-09-06 15:04 | XMS_ITS | Encounter Summary ---
Author Organization [employer] Address 75 [facility] [address] [place] [address] Care Team Providers Care Tiedown Operator Name Role Phone DavidAva neff Primary Care Provider + [phone] Encounter Details Date Type Department Care Team [...] Clinical Support [facility] MEDICINE [address] [place] [address] Denisha Cross RN documented as of this encounter Visit Diagnoses Not on filedocumented in this encounter Additional Health Concerns Assessment Noted Time PHQ-9 Depression Total Score: 5 06/22/20 23 10:59 AM EST documented as of this encounter Care Teams Tiedown Operator Relationship Specialty Start Date End Date Ava Yap DO [address] [place] [address] PCP - General Family Medicine 03/28/11 Avelina Hodges Synthetic Soil Blocks PulperQuality Compliance Manager 04/21/23 documented as of this encounter
--- OUTSIDE RECORDS SUMMARY | 2024-09-06 15:04 | XMS_ITS | Encounter Summary ---
Author Organization [employer] Address [address] [address] Care Team Providers Care General Surgeon Name Role Phone Ava Yap DO Primary Care Provider + [phone] Reason for Visit * Reason Onset Date Comments Paperwork/Forms 09/05/2024 Encounter Details Date Type Department Care Team ([facility] st Contact Info) Description 09/05/2024 Telephone [facility] MEDICINE [address] [place] [address] Ava Yap DO [address] [place] [address] Paperwork/Forms Social History Tobacco Use Types Packs/Day [...] Description 11/28/2024 1:30 PM EDT Clinical Support [facility] MEDICINE [address] [place] [address] Denisha Cross, DEVI documented as of this encounter Visit Diagnoses Not on filedocumented in this encounter Additional Health Concerns Assessment Noted Time PHQ-9 Depression Total Score: 5 06/22/20 10:59 AM EST documented as of this encounter Care Teams General Surgeon Relationship Specialty Start Date End Date Ava Yap DO [address] [place] [address] PCP - General Family Medicine 03/28/11 Avelina Hodges Education InstructorWashcloth Folder 04/21/23 documented as of this encounter
--- OUTSIDE RECORDS SUMMARY | 2024-09-06 15:04 | XMS_ITS | Encounter Summary ---
Author Organization [employer] Address 75 [facility] [address] [address] Care Team Providers Care Ship Yard Electrical Person Name Role Phone Ava Yap DO Primary Care Provider + [phone] Reason for Visit * Reason Comments Med Refill Encounter Details Date Type Department Care Team ([facility] st Contact Info) Description 05/03/2024 Refill [facility] MEDICINE [address] [place] [address] Ava Yap DO [address] [place] [address] Anxiety; Chronic pain of both knees Social [...] Description 11/28/2024 1:30 PM EDT Clinical Support [facility] MEDICINE [address] [place] [address] Denisha Cross RN documented as of this encounter Visit Diagnoses Diagnosis Anxiety Anxiety state, unspecified Chronic pain of both knees documented in this encounter Additional Health Concerns Assessment Noted Time PHQ-9 Depression Total Score: 5 06/22/20 23 10:59 AM EST documented as of this encounter Care Teams Ship Yard Electrical Person Relationship Specialty Start Date End Date Ava Yap DO [address] [place] [address] PCP - General Family Medicine 03/28/11 Avelina Hodges Manager StaffingTester Operator Helper 04/21/23 documented as of this encounter
--- OUTSIDE RECORDS SUMMARY | 2024-09-06 15:04 | XMS_ITS | Encounter Summary ---
Author Organization [employer] Address 75 [facility] [address] [place] [address] Care Team Providers Care Cable Ferryboat Operator Name Role Phone Ava Yap DO Primary Care Provider + [phone] Reason for Visit * Reason Comments Med Refill Encounter Details Date Type Department Care Team ([facility] st Contact Info) Description 08/19/2024 Refill [facility] CHC MED & PEDS [address] [place] [address] Ava Yap DO [address] [place] [address] Chronic gastroesophageal reflux disease Social History Tobacco [...] Description 11/28/2024 1:30 PM EDT Clinical Support [facility] MEDICINE [address] [place] [address] Denisha Cross RN documented as of this encounter Visit Diagnoses Diagnosis Chronic gastroesophageal reflux disease documented in this encounter Additional Health Concerns Assessment Noted Time PHQ-9 Depression Total Score: 5 06/22/20 23 10:59 AM EST documented as of this encounter Care Teams Cable Ferryboat Operator Relationship Specialty Start Date End Date Ava Yap DO [address] [place] [address] PCP - General Family Medicine 03/28/11 Avelina Hodges Academic Records SpecialistTyping Secretary 04/21/23 documented as of this encounter
--- OUTSIDE RECORDS SUMMARY | 2024-09-06 15:04 | XMS_ITS | Encounter Summary ---
Author Organization [employer] Address [address] [place] [address] Care Team Providers Care Waterproofing Machine Operator Name Role Phone Ava Yap DO Primary Care Provider + [phone] Reason for Visit * Reason Comments Med Refill Encounter Details Date Type Department Care Team (Late Contact Info) Description 11/14/2022 Refill [facility] MEDICINE [address] [place] [address] Ava Yap DO [address] [place] [phone] Anxiety Social History Tobacco Use Types Packs/Day [...] Description 11/28/2024 1:30 PM EDT Clinical Support [facility] MEDICINE [address] [place] [phone] Denisha Cross RN documented as of this encounter Visit Diagnoses Diagnosis Anxiety Anxiety state, unspecified documented in this encounter Additional Health Concerns Assessment Noted Time PHQ-9 Depression Total Score: 0 07/27/19 23 11:46 AM EST documented as of this encounter Care Teams Waterproofing Machine Operator Relationship Specialty Start Date End Date Ava Yap DO [address] [place] [address] PCP - General Family Medicine 03/28/11 Avelina Hodges Job Development SpecialistManager Respiratory 04/21/23 documented as of this encounter
--- OUTSIDE RECORDS SUMMARY | 2024-09-06 15:04 | XMS_ITS | Encounter Summary ---
Author Organization [employer] Address [address] [address] Care Team Providers Care Communications Manager Name Role Phone Ava Yap DO Primary Care Provider + [phone] Reason for Visit * Reason Onset Date Comments Appointment Request 07/16/2024 Call Back Request 07/16/2024 Encounter Details Date Type Department Care Team ([facility] st Contact Info) Description 07/16/2024 Telephone [facility] MEDICINE [address] [place] [address] Ava Yap DO [address] [place] [address] Appointment Request; Call Back Request Social History [...] she don't want to be without meds. [phone] documented in this encounter Plan of Treatment Upcoming Encounters Date Type Department Care Team (Late st Contact Info) Description 11/28/2024 1:30 PM EDT Clinical Support [facility] MEDICINE [address] [place] [address] Denisha Cross RN documented as of this encounter Visit Diagnoses Not on filedocumented in this encounter Additional Health Concerns Assessment Noted Time PHQ-9 Depression Total Score: 5 06/22/20 10:59 AM EST documented as of this encounter Care Teams Communications Manager Relationship Specialty Start Date End Date Ava Yap DO [address] [place] [address] PCP - General Family Medicine 03/28/11 Avelina Hodges Counter ManagerBlood Typer 04/21/23 documented as of this encounter
--- OUTSIDE RECORDS SUMMARY | 2024-09-06 15:04 | XMS_ITS | Encounter Summary ---
Author Organization [employer] Address 75 [facility] [address] [address] Care Team Providers Care Watch Crystal Cutter Name Role Phone MaurilioAva arellano Primary Care Provider + [phone] Reason for Visit * Reason Comments JEWELRY MAKER Renewal JEWELRY MAKER Renewal Encounter Details Date Type Department Care Team (Latest Contact Info) Description 08/29/2024 10:00 AM EST Clinical Support [facility] MEDICINE [address] [place] [phone] Denisha Cross RN Chronic knee pain, unspecified [...] 10:00 AM EST S: Pt here for JEWELRY MAKER Renewal Visit, translation provided by staff member Kalina Mendoza Prescribed Tramadol 50mg Q6hr PRN & Lorazepam 2mg BID PRN. States has been taking 3 doses of Tramadol a day, last dose was taken last night. States she has been taking her lorazepam as prescribed, last dose wastaken last night as well. She said she just returned from [place] yesterday. She denies smoking cigarettes, ETOH use, [...] baby granddaughter to live with her. O: JEWELRY MAKER Tier 2. Pt currently prescribed Tramadol 50mg Q6hr PRN & Lorazepam 2mg BID PRN. MEASURING CLERK verified today. Tramadol Rx last filled on [...] appt. Last PCP visit was 06/22/23. 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 P: JEWELRY MAKER contract reviewed and signed, Pt provided copy. Pt to continue taking medication only as prescribed; Next JEWELRY MAKER RV appointment scheduled for 11/28/24 @ 1:30p, F/U sooner PRN. Appointment reminder given. Pt verbalized understanding and agreed to plan. documented in this encounter Plan of Treatment Upcoming Encounters Date Type Department Care Team (Late st Contact Info) Description 11/28/2024 1:30 PM EDT Clinical Support [address] [address] Denisha Cross, DEVI documented as of this encounter Procedures Procedure Name Priority Date/Time Associated Diagnosis Comments POCT ELISEO-14 URINE DRUG SCREEN Routine 08/29/2024 10:14 AM EST Chronic knee pain, unspecified laterality documented in this encounter Results * POCT ELISEO-14 Urine Drug Screen (08/29/2024 10:14 AM EST) Benzodiazepines Screen, Urine Positive Urine Urine specimen obtained by clean catch procedure / Unknown 08/29/2024 10:14 AM EST Denisha Schroeder, RN - 08/29/2024 10:14 AM EST UTOX cup Lot#[id number] Exp. 02/12/26 Internal Pass Control Ava Yap DO POINT OF CARE TEST ENTER/HILARIO T ORDERABLES Final Result documented in this encounter Visit Diagnoses Diagnosis Chronic knee pain, unspecified laterality- Primary documented in this encounter Additional Health Concerns Assessment Noted Time PHQ-9 Depression Total Score: 5 06/22/20 10:59 AM EST documented as of this encounter Care Teams Watch Crystal Cutter Relationship Specialty Start Date End Date Ava Yap DO [address] [place] [address] PCP - General Family Medicine 03/28/11 Avelina Hodges Skydiving InstructorBath Attendant 04/21/23 documented as of this encounter
--- OUTSIDE RECORDS SUMMARY | 2024-09-06 15:04 | XMS_ITS | Encounter Summary ---
Author Organization [employer] Address [address] [facility] [address] [place] [address] Care Team Providers Care Demonstrator Knitting Name Role Phone FraciscoAva Primary Care Provider + [phone] Reason for Visit * Reason Comments Med Refill Encounter Details Date Type Department Care Team ([facility] st Contact Info) Description 04/26/2023 Refill [facility] [address] [place] [address] Vesna Sanarbia MD [address] [place] [address] Anxiety Social History Tobacco Use Types Packs/Day [...] Description 11/28/2024 1:30 PM EDT Clinical Support [facility] [address] [place] [address] Denisha Cross RN documented as of this encounter Visit Diagnoses Diagnosis Anxiety Anxiety state, unspecified documented in this encounter Additional Health Concerns Assessment Noted Time PHQ-9 Depression Total Score: 21 023 10:23 AM EDT documented as of this encounter Care Teams Demonstrator Knitting Relationship Specialty Start Date End Date Ava Yap DO [address] [place] [address] PCP - General Family Medicine 03/28/11 Avelina Hodges Cerner AnalystScrap Handler 04/21/23 documented as of this encounter
--- OUTSIDE RECORDS SUMMARY | 2024-09-06 15:04 | XMS_ITS | Encounter Summary ---
Author Organization [employer] Address [address] [address] Care Team Providers Care Nuisance Wildlife Specialist Name Role Phone Ava Yap DO Primary Care Provider + [phone] Reason for Visit * Reason Comments Med Refill Encounter Details Date Type Department Care Team (Late st Contact Info) Description 07/04/2023 Refill [facility] [address] [place] [address] Ava Yap DO [address] [place] [address] Anxiety; Chronic bilateral low back pain, unspecified [...] Description 11/28/2024 1:30 PM EDT Clinical Support [facility] [address] [place] [address] Denisha Cross, DEVI documented as of this encounter Visit Diagnoses Diagnosis Anxiety Anxiety state, unspecified Chronic bilateral low back pain, unspecified whether sciatica present documented in this encounter Additional Health Concerns Assessment Noted Time PHQ-9 Depression Total Score: 5 06/22/20 23 10:59 AM EST documented as of this encounter Care Teams Nuisance Wildlife Specialist Relationship Specialty Start Date End Date Ava Yap DO [address] [place] [address] PCP - General Family Medicine 03/28/11 Avelina Hodges Diaphragm BuilderTax Appraiser 04/21/23 documented as of this encounter
--- OUTSIDE RECORDS SUMMARY | 2024-09-06 15:04 | XMS_ITS | Clinical Summary ---
Author Organization [employer] Address [address] [place] [address] 7 [place] [address] Care Team Providers Care Commercial Relationship Manager Name Role Phone FraciscoAva Primary Care Provider + [phone] Allergies Active Allergy Reactions Criticality Noted Date [...] FOR WHEEZING 18 g 1 025 Active lisinopril 5 MG tablet TAKE [...] AT BEDTIME NEEDED FOR SLEEP 7 tablet 025 Active traMADol (Ultram) 50 MG tabletIndications: Chronic pain of both knees TAKE 1 TABLET BY MOUTH EVERY 6 HOURS NEEDED FOR SEVERE PAIN 112 tablet 025 10/03 Active LORazepam (Ativan) 2 MG tabletIndications: Anxiety TAKE 1 TABLET BY MOUTH TWICE DAILY IN THE MORNING AND IN THE EVENING NEEDED FOR ANXIETY. 56 tablet 025 10/03 Active fluticasone (Flovent HFA) 220 MCG/ACT inhalerIndications [...] SEVERE PAIN. 112 tablet 025 08/19 Discontinued LORazepam (Ativan) 2 MG tabletIndications: Anxiety TAKE 1 TABLET BY MOUTH TWICE DAILY IN THE MORNING AND IN THE EVENING NEEDED FOR ANXIETY. 56 tablet 025 09/05 Discontinued( Reorder (will not trigger notification to Pharmacy)) traMADol (Ultram) 50 MG tabletIndications: Chronic pain of both knees TAKE 1 TABLET BY MOUTH EVERY 6 HOURS NEEDED FOR SEVERE PAIN 40 tablet 025 09/05 Discontinued predniSONE (Deltasone) 20 MG tablet Take 1 [...] ovarian cyst 11/24/2022 023 Heart palpitations 11/24/2022 3 Persistent dyspnea after COVID-19 11/24/2022 11/24/2022 Positive blood culture 11/24/202211/24 Well woman exam 11/24/2022 11/24/2022 Retropharyngeal abscess 08/18/2022 06/0 06/2022 Assessment & Plan (08/18/2022 3:02 PM EST): Pt is here as a walk in. She was initially seen at [facility] on 08/12 for neck swelling, neck pain, sore throat, and mild sob x [address] scan of soft tissue of neck showed tissue swelling at C2-C4 which possibly reflected retropharyngeal cellulitis. Therefore pt. Was transferred to [facility] for an ENT consult. ENT determined [...] Encounters Date Type Department Care Team Description 09/06/2024 2:30 PM EDT Office Visit [facility] [address] [place] [phone] Donnie Palencia DDS Arrived 09/06/2024 Population Health Risk Score Community [facility] ([facility]) Department [address] [phone] Provider, Population Health Generic 09/05/2024 Telephone [facility] [address] [place] [phone] Ava Yap DO Paperwork/Forms 09/04/2024 Refill [facility] [address] [place], [place] [phone] Teetee Matthews MD Chronic pain of both knees; Anxiety 09/02/2024 Refill [facility] [address] [place] [address] Teetee Matthews MD Anxiety; Chronic pain of both knees 08/30/2024 11:15 AM EST Office Visit [facility] [address] [place] [phone] Ava Yap DO Essential hypertension (Primary Dx); Other hyperlipidemia; Prediabetes; Fatty liver; Coronary arteriosclerosis; Bipolar disease, chronic (CMS/HCC); Moderate persistent asthma without complication; Obstructive sleep apnea; Chronic migraine; Chronic gastroesophageal reflux disease; Chronic pain of both knees; Pain of right thumb; Healthcare maintenance; Encounter for screening for malignant neoplasm of colon; Screening for colon cancer 08/29/2024 10:00 AM EST Clinical Support [address] [address] Denisha Cross RN Chronic knee pain, unspecified laterality (Primary Dx) 08/29/[address] [address] [place], Denisha, RN CATTLE TESTER Renewal today 08/29/2024 Travel 08/19/2024 Refill [facility] [address] [place] [address] Ava Yap, Chronic gastroesophageal reflux disease 08/15/2024 Refill [facility] [address] [place] [address] Ava Yap, Chronic pain of both knees 08/02/2024 Refill [facility] [address] [place] [address] Ava Yap, Anxiety 07/19/2024 Refill [facility] [address] [place], [place] [phone] Ava Yap, Chronic pain of both knees 07/17/2024 Refill [facility] [address] [place] [address] Denisha Cross RN Anxiety 07/16/2024 11:00 AM EST Clinical Support [facility] [address] [place] [address] Denisha Cross RN Chronic knee pain, unspecified laterality (Primary Dx) 07/16/2024 Travel 07/16/[address] [address] Ava Yap DO Appointment Request; Call Back Request 07/16/2024 Telephone [facility] [address] [place] [phone] Denisha Cross RN Recommend CATTLE TESTER Tier 2 07/08/2024 Refill [facility] [address] [place] [address] Ava Yap DO Mild persistent asthma without complication 06/21/2024 Refill [facility] [address] [place] [address] Ava Yap, Anxiety 06/20/2024 Refill [facility] [address] [place] [address] Ava Yap DO Posttraumatic stress disorder 06/18/2024 Orders Only GENERIC EXTERNAL DATA DEPARTMENT Provider, Generic External Data 06/17/2024 Telephone [facility] [address] [place] [address] Ava Yap, DO Nurse Triage 06/14/2024 Telephone [facility] [address] [place], [place] [phone] Ava Yap, DO No Show 06/12/2024 Refill [facility] [address] [place], [place] [phone] Ava Yap, DO Chronic pain of both knees from Last [...] Sign Reading Time Taken Comments Blood Pressure 150/70 09/06/2024 2:20 PM EDT Pulse 104 08/30/2024 12:02 PM EST Temperature [...] Description 11/28/2024 1:30 PM EDT Clinical Support [facility] [address] [place] [phone] Denisha Cross, RN Health Maintenance Due Date [...] 04/02/2015 Zoster Vaccines (1 of 2) 12/05/2021 COVID-19 Vaccine (3 - season) 2024 06/15/2021, 10/03/2020 Influenza Vaccine (#1) 2024 Depression Screening 06/22/2024 06/22/2023, 06/22/20 23 Cervical Cancer Screening 08/23/2024 HPV/Cotest 08/23/2024 08/23/2019, 07/22/2016 DTaP/Tdap/Td Vaccines (2 - Td or Tdap) 12/09/2024 12/09/2014 Mammogram 05/04/2025 05/04/2023, 03/27, 12/11/2020, Additional history exists SDOH Screening 08/30/2025 08/30/2024 Tobacco Screening 08/30/2025 08/30/2024 Diabetes: Hemoglobin A1C 09/05/2025 025, 12/13/2022, 03/14/2022, Additional history exists Lipid Panel 09/05/2029 09/05/2024, 11/0 02/2023, 12/13/2022, Additional history exists RSV Patients and Patients Aged 60 years or older (1 - 1-dose 75+ series) 12/05/2046 Hepatitis A Vaccines Completed 09/11/2018, 03/14/20 18 Hepatitis B Vaccines Completed 09/11/2018, 06/27/2018, 03/14/2018 HIV Screening Completed 09/05/2024, 11/25, 03/14/2022, Additional history exists Hepatitis C Screening Completed 09/05/2024 , 12/13/2022, 03/14/2022, Additional history exists HIB Vaccines Aged Out No longer eligi [...] 12:05 PM EDT Pain of right thumb HEPATITIS B CORE AB TOTAL Routine 09/05/2024 11:10 AM EDT Essential hypertension Other hyperlipidemia Prediabetes Fatty liver Coronary arteriosclerosis Bipolar disease, chronic (CMS/HCC) Moderate persistent asthma without complication Obstructive sleep apnea Chronic migraine Chronic gastroesophageal reflux disease Chronic pain of both knees Pain of right thumb Healthcare maintenance Encounter for screening for malignant neoplasm of colon Screening for colon cancer HEPATITIS B SURFACE ANTIBODY, QUALITATIVE Routine 09/05/2024 11:10 AM EDT Essential hypertension Other hyperlipidemia Prediabetes Fatty liver Coronary arteriosclerosis Bipolar disease, chronic (CMS/HCC) Moderate persistent asthma without complication Obstructive sleep apnea Chronic migraine Chronic gastroesophageal reflux disease Chronic pain of both knees Pain of right thumb Healthcare maintenance Encounter for screening for malignant neoplasm of colon Screening for colon cancer HEPATITIS C AB W/REFL TO HCV RNA, QN, PCR Routine 09/05/2024 11:10 AM EDT Essential hypertension Other hyperlipidemia Prediabetes Fatty liver Coronary arteriosclerosis Bipolar disease, chronic (CMS/HCC) Moderate persistent asthma without complication Obstructive sleep apnea Chronic migraine Chronic gastroesophageal reflux disease Chronic pain of both knees Pain of right thumb Healthcare maintenance Encounter for screening for malignant neoplasm of colon Screening for colon cancer HIV 1/2 ANTIGEN/ANTIBODY, FOURTH GENERATION W/RFL Routine 09/05/2024 11:10 AM EDT Essential hypertension Other hyperlipidemia Prediabetes Fatty liver Coronary arteriosclerosis Bipolar disease, chronic (CMS/HCC) Moderate persistent asthma without complication Obstructive sleep apnea Chronic migraine Chronic gastroesophageal reflux disease Chronic pain of both knees Pain of right thumb Healthcare maintenance Encounter for screening for malignant neoplasm of colon Screening for colon cancer HEPATITIS B SURFACE ANTIGEN, EIA Routine 09/05/2024 11:10 AM EDT Essential hypertension [...] neoplasm of colon Screening for colon cancer CHLAMYDIA/N. GONORRHOEAE RNA, TMA, UROGENITAL Routine 09/05/2024 11:10 AM EDT Essential hypertension [...] TOMOSYNTHESIS BILATERAL Routine 05/04/2023 1:45 PM EST ZZZ HISTORICAL HPV E6/E7 RFLX ELMER 16 18/45 Routine 08/23/2019 11:30 AM EST from Last 3 Months or Most Recently Relevant to Health Maintenance Results * XR Hand 3+ Views Right (09/05/2024 12:05 PM EDT) Anatomical Region Laterality Modality Upper Extremities, Hand Right Radiogra phic Imaging 09/05/2024 12:0 5 PM EDT Narrative 09/05/2024 12:48 PM EDT ? [facility] ?[address] ?[place] [address] ?XRay Report ? Signed ? Patient: Asif Muhammad,Ximena ?MR#: ?? [id number] ? : 1970 ?Acct:[id number] ? Age/Sex: 53 / F ?ADM Date: 09/05/24 ? Loc: HO.[facility] ? Attending Dr: Ava Yap DO ? Ordering Physician: Ava Yap DO ?? Date of Service: 09/05/24 ?? Procedure(s): XR hand RT min 3V ?? Accession Number(s): [id number] ? cc: Ava Yap DO ? EXAMINATION: [...] DD/ 1205 ? TD/TT: 09/05/24 1223 ? Inspector Open Die: ? Procedure Note Frances, Image - 09/05/[address] [address] XRay Report Signed Patient: Kody Xiong#: [id number] : 1970Acct:[id number] Age/Sex: 53 / FADM Date: 09/05/24 Loc: HO.[facility] Attending Dr: Ava Yap DO Ordering Physician: Ava Yap DO Date of Service: 09/05/24 Procedure(s): XR hand RT min 3V Accession Number(s): [id number] cc: Ava Yap DO EXAMINATION: XR HAND, [...] Nicolas Barba MD 09/05/2024 12:46 PM EDT Dictated By: Nicolas Barba MD Signed By: <Electronically signed by Nicolas Barba MD in OV> 09/05/24 1246 DD/ 1205 TD/TT: 09/05/24 1223 Inspector Open Die: Ava Yap DO [facility] [place] PROCEDURES Edited Res ult - Final * (ABNORMAL) Vitamin D, 25-Hydroxy, Total, Immunoassay (09/05/2024 11:10 AM EDT) Vitamin D 25-OH Total 25.6(L) >30 ng/mL [facility] Comment: Health Based Reference Values*< 20 ??ng/mL ??Ygaexdxov34-16 ng/mL ??Insufficient> 30 ??ng/mL ??Sufficient*Rafi NUÑEZ. N [...] ORDERABLES Final R esult Performing Organization Address [facility] Co de Phone Number [facility] [address] [place] [phone] * Albumin, Random Urine W/Creatinine (09/05/2024 11:10 AM EDT) Creatinine, Urine 63.20 mg/dL [facility] Microalbumin Urine 16.0 mg/L [facility] Microalbum Creatinine Ratio Ur 25.3 <30 ug/mg cr [facility] Comment:Albumin/Creatinine R atio Reference Ranges: Normal: < 30 ug/mg creatinine Microalbuminuria: 30 - 300 ug/mg creatinineClinical Albuminuria: > 300 ug/mg creatinine Urine (Urine, Random) 09/05/2024 11:10 AM EDT 09/05/2024 1:03 PM EDT us Ava Yap DO LAB URINE ORDERABLES Final R esult Performing Organization Address [facility] Co de Phone Number [facility] [address] [place] [phone] * Hepatitis C Antibody with Reflex to HCV, RNA, Quantitative, Real-Time PCR (09/05/2024 11:10 AM EDT) Hepatitis C Antibody Nonreactive Nonreactive [facility] Comment:Antibodies to HCV no t detected; does not exclude early acuteHCV infection. Blood Venous blood specimen / Unknown 09/05/2024 11:10 AM EDT 09/05/2024 1:25 PM EDT us Ava Yap DO LAB BLOOD ORDERABLES Final R esult [facility] [address] [place] [phone] * Chlamydia/N. Gonorrhoeae RNA, TMA, Urogenitial (09/05/2024 11:10 AM EDT) CT PCR NOT DETECTED Not Detect. [facility] Comment:A not detected test result does not exclude the possibilityof infection because test results can be affected byimproper specimen collection, concurrent antibiotic therapy,or the number of organisms in the specimen which may bebelow the sensitivity of the test. As with many diagnostictests, results from the Xpert CT/NG assay should beinterpreted in conjunction with other laboratory andclinical data available to the clinician.Xpert CT/NG performance has not been evaluated in patientsless than 14 years of age. The assay should not be used forthe evaluationof suspected sexual abuse or for other medico-legalindications. Additional testing is recommended in anycircumstance when false positive or false negative resultscould lead to adverse medical, social or psychologicalconsequences. NG PCR NOT DETECTED Not Detect. [facility] Comment:A not detected test result does not exclude the possibilityof infection because test results can be affected byimproper specimen collection, concurrent antibiotic therapy,or the number of organisms in the specimen which may bebelow the sensitivity of the test. As with many diagnostictests, results from the Xpert CT/NG assay should beinterpreted in conjunction with other laboratory andclinical data available to the clinician.Xpert CT/NG performance has not been evaluated in patientsless than 14 years of age. The assay should not be used forthe evaluationof suspected sexual abuse or for other medico-legalindications. Additional testing is recommended in anycircumstance when false positive or false negative resultscould lead to adverse medical, social or psychologicalconsequences. Urine Urethral structure / Unknown 09/05/2024 11:10 AM EDT 09/05/2024 1:03 PM EDT Narrative [facility] - 09/05/2024 3:50 PM EDT Urine Ava Yap DO LAB MICROBIOLOGY - GENERAL O RDERABLES Final Result Performing Organization Address [facility]/ZIP Co de Phone Number [facility] [address] [place] [phone] * Hepatitis B surface antigen, EIA (09/05/2024 11:10 AM EDT) Pathologist [facility] Hepatitis B Surface Ag Negative Negative [facility] Blood Venous blood specimen / Unknown 09/05/2024 11:10 AM EDT 09/05/2024 1:25 PM EDT Ava Yap DO LAB BLOOD ORDERABLES Final R esult Performing Organization Address [facility]/ZIP Co de Phone Number [facility] [address] [place] [phone] * Hepatitis B Core Antibody, Total (09/05/2024 11:10 AM EDT) Pathologist [facility] Hepatitis B Core Antibody Nonreactive Nonreactive [facility] Blood Venous blood specimen / Unknown 09/05/2024 11:10 AM EDT 09/05/2024 1:25 PM EDT Ava Yap DO LAB BLOOD ORDERABLES Final R esult Performing Organization Address City/[facility]/ZIP Co de Phone Number [facility] [address] [place] [phone] * HIV-1/2 Antigen and Antibodies, Fourth Generation, with Reflexes (09/05/2024 11:10 AM EDT) Pathologist [facility] HIV AB/AG Nonreactive Nonreactive [facility] Comment:HIV-1 p24 Ag and/or HIV-1/HIV-2 Ab not detected.A test result that is nonreactive does not exclude thepossibility of exposure to or infection with HIV-1 and/orHIV-2. Nonreactive results in this assay for individualswith prior exposure to HIV-1 and/or HIV-2 may be due toantigen and antibody levels that are below the limit ofdetection of this assay.The [id number] HIV Ag/Ab Combo assay result andsupplemental assay results should be interpreted inconjunction with the patient's clinical presentation,history and other laboratory results. If the results areinconsistent with clinical evidence, additional testing issuggested to confirm the result. Blood Venous blood specimen / Unknown 09/05/2024 11:10 AM EDT 09/05/2024 1:25 PM EDT Ava Yap DO LAB BLOOD ORDERABLES Final R esult Performing Organization Address [facility] Co de Phone Number [facility] [address] [place] [phone] * Hepatitis B Surface Antibody, Qualitative (09/05/2024 11:10 AM EDT) ~Hepatitis B Surface Antibody NONREACTIVE Nonreactive [facility] Comment:Nonreactive: < 8.00 mIU/mL Blood Venous blood specimen / Unknown 09/05/2024 11:10 AM EDT 09/05/2024 1:25 PM EDT Ava Yap DO LAB BLOOD ORDERABLES Final R esult Performing Organization Address [facility] Co de Phone Number [facility] [address] [place] [phone] * CBC (09/05/2024 11:10 AM EDT) White Blood Count 6.4 4.8 - 10.8 X10*3/uL [facility] Red Blood Count 4.43 4.20 - 5.50 X10*6/uL [facility] Hemoglobin 13.6 12.0 - 16.0 g/dl [facility] Hematocrit 39.6 37.0 - 47.0 % [facility] Mean Corpuscular Volume 89.4 80.0 - 98.0 fL [facility] Mean Corpuscular Hemoglobin 30.7 27.0 - 33.0 pg [facility] Mean Corpuscular HGB Conc 34.3 31.0 - 35.0 g/dl [facility] Red Cell Distribution Width 13.2 11.0 - 16.0 % [facility] Platelet Count 268 160 - 400 X10*3/uL [facility] Mean Platelet Volume 11.2 9.4 - 12.3 fL [facility] NRBC Pct Auto 0.0 0.0 - 0.2 /100WBC [facility] NRBC Abs Auto 0.000 0.0 - 0.012 X10*3/uL [facility] Blood Venous blood specimen / Unknown 09/05/2024 11:10 AM EDT 09/05/2024 1:22 PM EDT Ava Yap [employer] LAB BLOOD ORDERABLES Final R esult Performing Organization Address City/[facility]/ZIP Co de Phone Number [facility] [address] [place] [address] [phone] * TSH (09/05/2024 11:10 AM EDT) Thyroid Stimulating Hormone 2.68 0.32 - 4.0 uIU/mL [facility] Comment:Note: A sustained TS H level above 2.5 uIU/mL may warrant further investigation. TSH 3rd Generation ([email or web address]) Blood Venous blood specimen / Unknown 09/05/2024 11:10 AM EDT 09/05/2024 1:25 PM EDT Avadavid Yap DO LAB BLOOD ORDERABLES Final R esult Performing Organization Address City/[facility]/ZIP Co de Phone Number [facility] [address] [place] [phone] * T4, Free (09/05/2024 11:10 AM EDT) Free T4 (Free Thyroxine) 1.05 0.71 - 1.85 ng/dL [facility] Blood Venous blood specimen / Unknown 09/05/2024 11:10 AM EDT 09/05/2024 1:25 PM EDT Ava Maurilioadan DO LAB BLOOD ORDERABLES Final R esult [facility] [address] [place] [address] [phone] * Hemoglobin A1c (09/05/2024 11:10 AM EDT) Hemoglobin A1c 6.0 <6.0 % [facility] Comment:Hemoglobin A1C Refer ence Range Adults: 4.8 - 6.0 % Non diabetic: < 6.0 % Goal: < 7.0 %Additional Action Suggested: > 8.0 %Note: Hemoglobin A1c results are invalid for patients with abnormal amounts of HbF. Blood transfusions may impact the HbA1c concentration in the patient sample. Estimated Average Glucose 126 mg/dL [facility] Comment:eAG = Estimated ave rage glucose which is %A1C expressed asaverage glucose, using the formula of the [id number]-[id number] Glucose study (ADAG), Diabetes Care, Vol.31,#8,Jan. 2007 Blood Venous blood specimen / Unknown 09/05/2024 11:10 AM EDT 09/05/2024 1:22 PM EDT Ava Hernandeztawanda DO LAB BLOOD ORDERABLES Final R esult Performing Organization Address City/[facility]/ZIP Co de Phone Number [facility] [address] [place] [phone] * (ABNORMAL) Hepatic Function Panel (09/05/2024 11:10 AM EDT) Only the most recent of2 resultswithin the time period is included. Pathologist [facility] Bilirubin, Total 0.4 0.0 - 1.0 mg/dL [facility] Bilirubin, Direct 0.1 0.0 - 0.5 mg/dL [facility] Aspartate Amino Transferase 26 5 - 31 U/L [facility] Alanine Aminotransferase 33(H) 0 - 31 U/L [facility] Total Protein 8.0 6.5 - 8.0 g/dL [facility] Albumin Level 4.5 3.5 - 5.0 g/dL [facility] Alkaline Phosphatase 84 39 - 117 U/L [facility] Blood Venous blood specimen / Unknown 09/05/2024 11:10 AM EDT 09/05/2024 1:25 PM EDT us Ava Yap DO LAB BLOOD ORDERABLES Final R esult [facility] [address] [place] [phone] * (ABNORMAL) Lipid Panel, Standard (09/05/2024 11:10 AM EDT) Triglycerides 344(H) <150 mg/dL [facility] Comment:Desirable Triglyceri de: less than 150 mg/dLBorderline High Triglyceride 150-199 mg/dLHigh Triglyceride: 200-499 mg/dLVery High Triglyceride: greater than or equal to 5OO mg/dL Cholesterol 273(H) <200 mg/dL [facility] Comment:Desirable Cholestero l: less than 200 mg/dLBorderline High Cholesterol: 200-239 mg/dLHigh Cholesterol: greater than 239 mg/dL LDL Cholesterol Calculated 161(H) <100 mg/dL [facility] Comment:Desirable LDL: less than 100 mg/dLNear Optimal/Above Optimal LDL: 110- 129 mg/dLBorderline High LDL: 130-159 mg/dLHigh LDL: 160-189 mg/dLVery High LDL: greater than or equal to 190 mg/dL HDL Cholesterol 44 >40 mg/dL [facility] Comment:Desirable HDL: great er than 40 mg/dL Note: This HDL assay may give artificially low results in patients with liver disease. Blood Venous blood specimen / Unknown 09/05/2024 11:10 AM EDT 09/05/2024 1:25 PM EDT Ava Yap DO LAB BLOOD ORDERABLES Final R esult Performing Organization Address City/[facility] Co de Phone Number [facility] [address] [place] [phone] * Basic Metabolic Panel (09/05/2024 11:10 AM EDT) Only the most recent of2 resultswithin the time period is included. Sodium 140 135 - 145 mmol/L [facility] Potassium 3.9 3.3 - 5.1 mmol/L [facility] Chloride 108 96 - 108 mmol/L [facility] Carbon Dioxide 24 22 - 29 mmol/L [facility] Anion Gap 12 12 - 20 [facility] Urea Nitrogen (BUN) 12 9 - 16 mg/dL [facility] Creatinine, Serum 0.74 0.5 - 1.4 mg/dL [facility] Estimated Glomerular Filt Rate >60 [facility] Comment:Chronic Kidney Disea se: Estimated GFR < 60 mL/min/1.80m9Qaleww Kidney Disease: Estimated GFR < 15 mL/min/1.73m2 Glucose 107 60 - 115 mg/dL [facility] Calcium 9.7 8.4 - 10.2 mg/dL [facility] Blood Venous blood specimen / Unknown 09/05/2024 11:10 AM EDT 09/05/2024 1:25 PM EDT Ava Yap DO LAB BLOOD ORDERABLES Final R esult Performing Organization Address City/[facility]/ZIP Co de Phone Number [facility] [address] [place] [address] [phone] * POCT ELISEO-14 Urine Drug Screen (08/29/2024 10:14 AM EST) Only the most recent of2 resultswithin the time period is included. Benzodiazepines Screen, Urine Positive Urine Urine specimen obtained by clean catch procedure / Unknown 08/29/2024 10:14 AM EST Denisha Schroeder RN - 08/29/2024 10:14 AM EST UTOX cup Lot#[id number] Exp. 02/12/26 Internal Pass Control us Ava Yap DO POINT OF CARE TEST ENTER/HILARIO T ORDERABLES Final Result * Blood Culture (Second) (06/18/2024 4:33 PM EST) Blood Venous blood specimen / Unknown 06/18/2024 4:33 PM EST 06/18/2024 4:36 PM EST Comment:Blood [facility] - 06/23/2024 6:36 PM EST Blood Culture (Second) No growth after 5 days. Specimen Source: Blood Generic External Data Provider LAB MICROBIOLOGY - GENERAL ORDERABLES Final Result Performing Organization Address City/[facility]/ZIP Co de Phone Number [facility] [address] [place] [phone] * Blood Culture (First) (06/18/2024 4:03 PM EST) Blood Venous blood specimen / Unknown 06/18/2024 4:03 PM EST 06/18/2024 4:10 PM EST Comment:Blood [facility] - 06/23/2024 6:10 PM EST Blood Culture (First) No growth after 5 days. Specimen Source: Blood Generic External Data Provider LAB MICROBIOLOGY - GENERAL ORDERABLES Final Result Performing Organization Address City/[facility]/ZIP Co de Phone Number [facility] [address] [place] [phone] * Strep A Nucleic Acid (06/18/2024 4:03 PM EST) IDNOW SERIAL# [id number] [facility] Strep A Nucleic Acid Negative Negative [facility] Comment:All test results mus t [...] GENERAL ORDERABLES Final Result Performing Organization Address [facility] de Phone Number [facility] [address] [place] [phone] * High Sensitivity Troponin I (06/18/2024 4:03 PM EST) Pathologist [facility] TROPONIN I HIGH SENSITIVITY <2.7 <3.5 - 17.0 ng/L [facility] Comment:The [place] high sens itivity Troponin-I results should beused in conjunction with other diagnostic information suchas ECG, clinical observations and information, and patientsymptoms to aid in the diagnosis of [place]. 06/18/2024 4:03 PM EST 06/18/2024 4:10 PM EST Xtium External Data Provider LAB BLOOD ORDERAB LES Final Result Performing Organization Address [facility] Number [facility] [address] [place] [phone] * (ABNORMAL) SARS-CoV-2 RNA, Influenza A/B, and RSV RNA, Ql NAAT (06/18/2024 4:03 PM EST) Pathologist [facility] Influenza A PCR POSITIVE(A) Negative [facility] Influenza B PCR NEGATIVE Negative [facility] Resp Syncy Virus RNA Qual PCR NEGATIVE Negative [facility] SARS COV2 PCR NEGATIVE Negative [facility] Comment:All test results mus [...] use by authorized laboratories.Testing performed on the [employer] GeneXpert utilizingreal-time RT-PCR.All SARS CoV2 and positive influenza A/B results arereported to [facility]. 06/18/2024 4:03 PM EST 06/18/2024 4:10 PM EST us Generic External Data Provider LAB MICROBIOLOGY - GENERAL ORDERABLES Final Result [facility] [address] [place] [phone] * (ABNORMAL) CBC auto differential (06/18/2024 4:03 PM EST) White Blood Count 5.7 4.8 - 10.8 X10*3/uL [facility] Red Blood Count 4.22 4.20 - 5.50 X10*6/uL [facility] Hemoglobin 13.1 12.0 - 16.0 g/dl [facility] Hematocrit 37.8 37.0 - 47.0 % [facility] Mean Corpuscular Volume 89.6 80.0 - 98.0 fL [facility] Mean Corpuscular Hemoglobin 31.0 27.0 - 33.0 pg [facility] Mean Corpuscular HGB Conc 34.7 31.0 - 35.0 g/dl [facility] Red Cell Distribution Width 13.3 11.0 - 16.0 % [facility] Platelet Count 217 160 - 400 X10*3/uL [facility] Mean Platelet Volume 10.6 9.4 - 12.3 fL [facility] Neutrophils Percent Auto 73.4(H) 45 - 73 % [facility] Imm Gran Pct Auto 0.2 0.0 - 0.4 % [facility] Lymphocytes Percent Auto 12.2(L) 20 - 40 % [facility] Monocytes Percent Auto 13.8(H) 2 - 11 % [facility] Eosinophils Percent Auto 0.2 0 - 4 % [facility] Basophils Percent Auto 0.2 0 - 2 % [facility] NRBC Pct Auto 0.0 0.0 - 0.2 /100WBC [facility] Neutrophils Absolute Auto 4.2 2.0 - 8.3 x10*3/uL [facility] Imm Gran Abs Auto 0.01 0.00 - 0.03 X10*3/uL [facility] Lymphocytes Absolute Auto 0.7(L) 1.2 - 4.9 X10*3/uL [facility] Monocytes Absolute Auto 0.8 0.1 - 1.2 X10*3/uL [facility] Eosinophils Absolute Auto 0.0 0.0 - 0.4 X10*3/uL [facility] Basophils Absolute Auto 0.0 0.0 - 0.2 X10*3/uL [facility] NRBC Abs Auto 0.000 0.0 - 0.012 X10*3/uL [facility] 06/18/2024 4:03 PM EST 06/18/2024 4:10 PM EST us Generic External Data Provider LAB BLOOD ORDERAB LES Final Result Performing Organization Address City/[facility]/ZIP Co de Phone Number [facility] [address] [place] [phone] * Magnesium (06/18/2024 4:03 PM EST) Magnesium 2.0 1.6 - 2.6 mg/dL [facility] 06/18/2024 4:03 PM EST 06/18/2024 4:10 PM EST us Generic External Data Provider LAB BLOOD ORDERAB LES Final Result Performing Organization Address City/[facility]/ZIP Co de Phone Number [facility] [address] [place] [phone] * Lipase (06/18/2024 4:03 PM EST) Pathologist [facility] Lipase 15 8 - 78 U/L [facility] 06/18/2024 4:03 PM EST 06/18/2024 4:10 PM EST Generic External Data Provider LAB BLOOD ORDERAB LES Final Result Performing Organization Address [facility] Phone Number [facility] [address] [place] [phone] * Lactic Acid (06/18/2024 4:03 PM EST) Pathologist [facility] Lactic Acid 1.2 0.5 - 2.0 mmol/L [facility] 06/18/2024 4:03 PM EST 06/18/2024 4:10 PM EST Generic External Data Provider LAB BLOOD ORDERAB LES Final Result Performing Organization Address [facility] Phone Number [facility] [address] [place] [phone] * XR Chest 2 Views (06/18/2024 3:49 PM EST) Anatomical Region Laterality Modality Chest Radiographic Nieves ging 06/18/2024 3:49 PM EST Narrative 06/18/2024 4:42 PM EST ? [facility] ?[address] ?[place] [address] ?XRay Report ? Signed ? Patient: Asif Muhammad,Ximena ?MR#: ?? [id number] ? : 1970 ?Acct:[id number] ? Age/Sex: 53 / F ?ADM Date: 12/24/24 ? Loc: HO.ED ? Attending Dr: ? Ordering Physician: Anushka Dozier ?? Date of Service: 06/18/24 ?? Procedure(s): XR chest 2V ?? Accession Number(s): [id number] ? cc: Ava Yap DO; Anushka Dozier [...] DD/ 1549 ? TD/TT: 06/18/24 1616 ? Inspector Open Die: ? Procedure Note Frances, Image - 06/18/2024 [place] [address] XRay Report Signed Patient: Heath XiongR#: [id number] : 1970Acct:[id number] Age/Sex: 53 / FADM Date: 06/18/24 Loc: .ED Attending Dr: Ordering Physician: Anushka Dozier Date of Service: 06/18/24 Procedure(s): XR chest 2V Accession Number(s): [id number] cc: Ava Yap DO; Anushka Dozier EXAMINATION: [...] 06/18/24 1640 DD/ 1549 TD/TT: 06/18/24 1616 Inspector Open Die: [facility] External Provider IMG XR PROCEDURES Edited Result - Final * BI Mammogram Screening Tomosynthesis Bilateral (05/04/2023 1:45 PM EST) Anatomical Region Laterality Modality Breast Bilateral Mammography 05/04/2023 1:45 PM EST Narrative 05/22/2023 6:55 AM EST ? [facility] ? [address] ?[place] [address] ? Mammography Report ? Signed ? Patient: Ximena Xiong ?MR#: ?? [id number] ? : 1970 ?Acct:[id number] ? Age/Sex: 52 / F ?ADM Date: 05/04/23 ? Loc: HO.MAMMO ? Attending Dr: Ava Yap DO ? Ordering Physician: Ava Yap DO ?Results: 1N ?? egative ? Date of Service: 05/04/23 ?Follow Up: 1 Year From Orig ?? inal Mammogram ? Procedure(s): MM tomosynthesis screening BI ?? Accession Number(s): [id number] ? cc: Ava Yap Levi DO ? EXAMINATION: ?? MM SCREENING DIGITAL [...] 0651 ? DD/ 1345 ? TD/TT: ? Inspector Open Die: ? Procedure Note Frances, Image - 05/22/2023 Aurelio [facility] [address] [place] [address] Mammography Report Signed Patient: Kody Xiong#: [id number] : 1970Acct:[id number] Age/Sex: 52 / FADM Date: 05/04/23 Loc: NORTH Attending Dr: Ava Yap DO Ordering Physician: Ava Yapults: 1N egative Date of Service: 05/04/23Follow Up: 1 Year From Orig inal Mammogram Procedure(s): MM tomosynthesis screening BI Accession Number(s): [id number] cc: Ava Yap DO EXAMINATION: MM SCREENING [...] in OV> 05/22/23 0651 DD/ 1345 TD/TT: Inspector Open Die: Ava Yap DO IMG BI PROCEDURES Final Resu lt * HPV E6/E7 RFLX ELMER 16 18/45 (08/23/2019 11:30 AM EST) ADDITIONAL TESTING Not indicated () [facility] Comment: Test Performed by [employer], [facility], [address] [place] [address] Jorge López M.D., Ph.D., Director of Laboratories , [facility] [id number] HPV 16 RNA Test not performed [facility] HPV 18/45 RNA Test not performed [facility] HPV mRNA E6/E7 Not Detected NOT DETECTED [facility] Comment: This test was performed using the APTIMA(R) HPV Assay ([employer] This assay detects E6/E7 viral messenger RNA (mRNA) from 14 high-risk HPV types (16,18,31,33,35,39,45,51, 52,56,58,59,66,68). For additional information please refer to: http://education.[employer]/faq/OYU711k6 (This link is being provided for informational/ educational purposes only.) The analytical performance characteristics of this assay have been determined by [facility] [place], [place]. The modifications have not been cleared or approved by the FDA. This assay has been validated pursuant to the CLIA regulations and is used for clinical purposes. Please note: ??Effective 03/07/2016, HPV testing will be performed using [employer]'s APTIMA test which targets mRNA. Detecting mRNA instead of DNA, as in older methods, offers significant improvements in specificity. 08/23/2019 11:3 0 AM EST Ava Yap DO HISTORICAL/NON ORDERABLE LAB S Final Result [facility] Anywhere [address] from Last 3 Months or Most Recently Relevant to Health Maintenance Insurance [facility] ST[facility] ADULT Care Teams Commercial Relationship Manager Relationship Specialty Start Date End Date Ava Yap DO [address] [place] [address] PCP - General Family Medicine 03/28/11 Avelina Hodges Bit TapperCoordinator Mining Products 04/21/23
--- OUTSIDE RECORDS SUMMARY | 2024-09-06 15:04 | XMS_ITS | Encounter Summary ---
Author Organization [employer] Address [address] [facility] [address] [address] Care Team Providers Care Lace Mender Name Role Phone MaurilioAva arellano Primary Care Provider + [phone] Encounter Details Date Type Department Care Team ([facility] st Contact Info) Description 09/06/2024 Population Health Risk Score [facility] Department [address] [phone] Provider, Population Health Generic Social History Tobacco Use Types Packs/Day Years [...] Description 11/28/2024 1:30 PM EDT Clinical Support [facility] [address] [place] [phone] Denisha Cross RN documented as of this encounter Visit Diagnoses Not on filedocumented in this encounter Additional Health Concerns Assessment Noted Time PHQ-9 Depression Total Score: 5 06/22/20 23 10:59 AM EST documented as of this encounter Care Teams Lace Mender Relationship Specialty Start Date End Date Ava Yap DO [address] [place] [phone] PCP - General Family Medicine 03/28/11 Avelina Hodges Chili Powder MixerSimulation Tech 04/21/23 documented as of this encounter
--- OUTSIDE RECORDS SUMMARY | 2024-09-06 15:04 | XMS_ITS | Encounter Summary ---
Author Organization [employer] Address [address] [facility] [address], [place] [address] Care Team Providers Care Junior Qa Analyst Name Role Phone Fracisco Ava Primary Care Provider + [phone] Reason for Visit * Reason Comments Extraction #[id number] Encounter Details Date Type Department Care Team ([facility] st Contact Info) Description 09/06/2024 2:30 PM EDT Office Visit [facility] ADULT DENTAL [address] [place] [address] Donnie Palencia DDS [address] [place] [address] Arrived Social History Tobacco Use Types Packs/Day Years [...] Pressure 150/70 09/06/2024 2:20 PM EDT Pulse - - Temperature - - Respiratory Rate - - Oxygen Saturation - - Inhaled Oxygen Concentration - - Weight - - Height - - Body Mass Index - - documented in this encounter Plan of Treatment Upcoming Encounters Date Type Department Care Team (Late st Contact Info) Description 11/28/2024 1:30 PM EDT Clinical Support [facility] MEDICINE [address] [place] [address] Denisha Cross, RN documented as of this encounter Visit Diagnoses Not on filedocumented in this encounter Additional Health Concerns Assessment Noted Time PHQ-9 Depression Total Score: 5 06/22/20 23 10:59 AM EST documented as of this encounter Care Teams Junior Qa Analyst Relationship Specialty Start Date End Date Ava Yap DO [address] [place] [address] PCP - General Family Medicine 03/28/11 Avelina Hodges Model Engine MechanicManager Equipment 04/21/23 documented as of this encounter
--- OUTSIDE RECORDS SUMMARY | 2024-09-06 15:04 | XMS_ITS | Encounter Summary ---
Author Organization [employer] Address [address] [address] Care Team Providers Care Rough Rounder Machine Name Role Phone Ava Yap DO Primary Care Provider + [phone] Reason for Visit * Reason Comments Med Refill Encounter Details Date Type Department Care Team ([facility] st Contact Info) Description 03/22/2024 Refill [facility] [address] [place] [address] Ava Yap DO [address] [place] [address] Chronic low back pain, unspecified back pain [...] Description 11/28/2024 1:30 PM EDT Clinical Support [facility] [address] [place] [address] Denisha Cross, DEVI documented as of this encounter Visit Diagnoses Diagnosis Chronic low back pain, unspecified back pain laterality, unspecified whether sciatica present documented in this encounter Additional Health Concerns Assessment Noted Time PHQ-9 Depression Total Score: 5 06/22/20 23 10:59 AM EST documented as of this encounter Care Teams Rough Rounder Machine Relationship Specialty Start Date End Date Ava Yap DO [address] [place] [address] PCP - General Family Medicine 03/28/11 Avelina Hodges Uranium Processing SupervisorSupervisor Mold Cleaning [employer] Storage 04/21/23 documented as of this encounter
--- OUTSIDE RECORDS SUMMARY | 2024-09-06 15:05 | XMS_ITS | Encounter Summary ---
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 MEDICINE [address] [place] [address] Denisha Cross RN REMOTE BROADCAST TECHNICIAN Renewal today Social History Tobacco Use Types [...] - 08/29/2024 10:19 AM EST Pt had REMOTE BROADCAST TECHNICIAN Renewal appt today BPI updated Pain severity [...] 1:30 PM EDT Clinical Support [facility] [address] [place] [address] Denisha Cross, RN documented as of this encounter Visit Diagnoses Not on filedocumented in this encounter Additional Health Concerns Assessment Noted Time PHQ-9 Depression Total Score: 5 06/22/20 10:59 AM EST documented as of this encounter Care Teams Manager Massage Department Relationship Specialty Start Date End Date Ava Yap DO [address] [place] [phone] PCP - General Family Medicine 03/28/11 Avelina Hodges Vb DeveloperSupervisor [employer] 04/21/23 documented as of this encounter
--- OUTSIDE RECORDS SUMMARY | 2024-09-06 15:05 | XMS_ITS | Encounter Summary ---
Author Organization [facility] Address [address] [place] [address] [address] [address] Care Team Providers Care Transplant Rn Name Role Phone Ava Yap DO Primary Care Provider + [phone] Reason for Referral * Imaging (Routine) - Closed Specialty Diagnoses / Procedures Referred By Tulioac t Referred To Contact Radiology Diagnoses Encounter for screening for malignant neoplasm of colon Procedures BI Mammogram Screening Tomosynthesis Bilateral Ava Yap DO [address] [place] [address] Phone: tel: fax: [facility] [address] [place] [address] Phone: tel: fax: Referral ID Status Reason Start Date Expiration Date Visits Re quested Visits Authorized [id number] Closed 08/30/2024 08/30/2025 1 1 * Consultation (Routine) - Pending Review Specialty Diagnoses / Procedures Referred By Contac t Referred To Contact Orthopaedic Surgery Diagnoses Pain of right thumb Ava Yap DO [address] [place] [address] Phone: tel: fax: Referral ID Status Reason Start Date Expiration Date Visits Requested Visits Authorized [id number] Pending Review Specialty Services Required 08/30/2024 08/30/2025 1 1 * Consultation (Routine) - Authorized Specialty Diagnoses / Procedures Referred By Deanna t Referred To Contact Psychiatry / Behavioral Health Diagnoses Bipolar disease, chronic (CMS/HCC) Ava Yap DO [address] [place] [address] Phone: tel: fax: Referral ID Status Reason Start Date Expiration Date Visits Requested Visits Authorized [id number] Authorized Specialty Services Required 08/30/2024 08/30/2025 1 1 Encounter Details Date Type Department Care Team (Latest Contact Info) Description 08/30/2024 11:15 AM EST Office Visit [facility] [address] [place] [address] Ava Yap DO [address] [place] [address] Essential hypertension (Primary Dx); Other hyperlipidemia; Prediabetes; [...] Description 11/28/2024 1:30 PM EDT Clinical Support [facility] [address] [place] [address] [phone] Denisha Cross, DEVI Scheduled Orders Name Type Priority Associated Diagnoses Orde r Schedule Cologuard?? colon cancer screening Lab Routine Screening for colon cancer Ordered: 08/30/2024 RPR (Monitor) with Reflex to??Titer Lab Routine Essential hypertension Other hyperlipidemia Prediabetes Fatty liver Coronary arteriosclerosis Bipolar disease, chronic (CMS/HCC) Moderate persistent asthma without complication Obstructive sleep apnea Chronic migraine Chronic gastroesophageal reflux disease Chronic pain of both knees Pain of right thumb Healthcare maintenance Encounter for screening for malignant neoplasm of colon Screening for colon cancer Expected: 08/30/2024, Expires: 08/30/2025 Hepatitis A Antibody, Total Lab [...] colon Screening for colon cancer HEPATITIS B CORE AB TOTAL Routine 09/05/2024 [...] EDT Narrative 09/05/2024 12:48 PM EDT ? [facility] ?[address] ?[place] [address] ?XRay Report ? Signed ? Patient: Asif Muhammad,Ximena ?MR#: ?? [id number] ? : 1970 ?Acct:[id number] ? Age/Sex: 53 / F ?ADM Date: 03/13/25 ? Loc: HO.HHCL ? Attending Marv Yap DO ? Ordering Physician: Ava Yap DO ?? Date of Service: 09/05/24 ?? Procedure(s): XR hand RT min 3V ?? Accession Number(s): [id number] ? cc: Carmen Yapfer Levi DO ? EXAMINATION: ?? XR HAND, RIGHT [...] DD/ 1205 ? TD/TT: 09/05/24 1223 ? Licensed Prosthetist: ? Procedure Note Frances, Image - 09/05/2024 [place] [address] XRay Report Signed Patient: Heath XiongR#: [id number] : 1970Acct:[id number] Age/Sex: 53 / FADM Date: 09/05/24 Loc: .[facility] Attending Dr: Ava Yap DO Ordering Physician: Ava Yap DO Date of Service: 09/05/24 Procedure(s): XR hand RT min 3V Accession Number(s): [id number] cc: Ava Yap DO EXAMINATION: XR HAND, [...] 09/05/24 1246 DD/ 1205 TD/TT: 09/05/24 1223 Licensed Prosthetist: Ava Yap DO IMG XR PROCEDURES Edited Res ult - Final * Hepatitis B Core Antibody, Total (09/05/2024 11:10 AM EDT) Hepatitis B Core Antibody Nonreactive Nonreactive [facility] Blood Venous blood specimen / Unknown 09/05/2024 11:10 AM EDT 09/05/2024 1:25 PM EDT Ava Yap DO LAB BLOOD ORDERABLES Final R esult Performing Organization Address [facility] Co de Phone Number [facility] [address] [place] [phone] * Hepatitis B Surface Antibody, Qualitative (09/05/2024 11:10 AM EDT) ~Hepatitis B Surface Antibody NONREACTIVE Nonreactive [facility] Comment:Nonreactive: < 8.00 mIU/mL Blood Venous blood specimen / Unknown 09/05/2024 11:10 AM EDT 09/05/2024 1:25 PM EDT Ava Yap DO LAB BLOOD ORDERABLES Final R esult Performing Organization Address City/[facility] Co de Phone Number [facility] [address] [place] [phone] * Hepatitis C Antibody with Reflex to HCV, RNA, Quantitative, Real-Time PCR (09/05/2024 11:10 AM EDT) Pathologist [facility] Hepatitis C Antibody Nonreactive Nonreactive [facility] Comment:Antibodies to HCV no t detected; does not exclude early acuteHCV infection. Blood Venous blood specimen / Unknown 09/05/2024 11:10 AM EDT 09/05/2024 1:25 PM EDT Ava Yap DO LAB BLOOD ORDERABLES Final R esult Performing Organization Address [facility] [place]/[facility]/ZIP Co de Phone Number [facility] [address] [place] [phone] * HIV-1/2 Antigen and Antibodies, Fourth Generation, with Reflexes (09/05/2024 11:10 AM EDT) [facility] HIV AB/AG Nonreactive Nonreactive [facility] Comment:HIV-1 p24 Ag and/or HIV-1/HIV-2 Ab not detected.A test result that is nonreactive does not exclude thepossibility of exposure to or infection with HIV-1 and/orHIV-2. Nonreactive results in this assay for individualswith prior exposure to HIV-1 and/or HIV-2 may be due toantigen and antibody levels that are below the limit ofdetection of this assay.The [employer] HIV Ag/Ab Combo assay result andsupplemental assay results should be interpreted inconjunction with the patient's clinical presentation,history and other laboratory results. If the results areinconsistent with clinical evidence, additional testing issuggested to confirm the result. Blood Venous blood specimen / Unknown 09/05/2024 11:10 AM EDT 09/05/2024 1:25 PM EDT Ava Yap DO LAB BLOOD ORDERABLES Final R homero Performing Organization Address [facility] Co de Phone Number [facility] [address] [place] [phone] * Chlamydia/N. Gonorrhoeae RNA, TMA, Urogenitial (09/05/2024 11:10 AM EDT) [facility] CT PCR NOT DETECTED Not Detect. [facility] Comment:A not detected test result does [...] psychologicalconsequences. NG PCR NOT DETECTED Not Detect. [facility] Comment:A not detected test result does [...] AM EDT 09/05/2024 1:03 PM EDT Narrative [facility] - 09/05/2024 3:50 PM EDT Urine Ava Yap DO LAB MICROBIOLOGY - GENERAL O RDERABLES Final Result [facility] [address] [place] [phone] * Hepatitis B surface antigen, EIA (09/05/2024 11:10 AM EDT) Hepatitis B Surface Ag Negative Negative [facility] Blood Venous blood specimen / Unknown 09/05/2024 11:10 AM EDT 09/05/2024 1:25 PM EDT us Ava Yap DO LAB BLOOD ORDERABLES Final R esult Performing Organization Address [facility] Co de Phone Number [facility] [address] [place] [address] [phone] * Albumin, Random Urine W/Creatinine (09/05/2024 11:10 AM EDT) Creatinine, Urine 63.20 mg/dL [facility] Microalbumin Urine 16.0 mg/L [facility] Microalbum Creatinine Ratio Ur 25.3 <30 ug/mg cr [facility] Comment:Albumin/Creatinine R atio Reference Ranges: Normal: < 30 ug/mg creatinine Microalbuminuria: 30 - 300 ug/mg creatinineClinical Albuminuria: > 300 ug/mg creatinine Urine (Urine, Random) 09/05/2024 11:10 AM EDT 09/05/2024 1:03 PM EDT Ava Yap DO LAB URINE ORDERABLES Final R esult Performing Organization Address [facility] Co de Phone Number [facility] [address] [place] [address] [phone] * CBC (09/05/2024 11:10 AM EDT) White Blood Count 6.4 4.8 - 10.8 X10*3/uL [facility] Red Blood Count 4.43 4.20 - 5.50 X10*6/uL [facility] Hemoglobin 13.6 12.0 - 16.0 g/dl [facility] Hematocrit 39.6 37.0 - 47.0 % [facility] Mean Corpuscular Volume 89.4 80.0 - 98.0 fL [facility] Mean Corpuscular Hemoglobin 30.7 27.0 - 33.0 pg [facility] Mean Corpuscular HGB Conc 34.3 31.0 - 35.0 g/dl [facility] Red Cell Distribution Width 13.2 11.0 - 16.0 % [facility] Platelet Count 268 160 - 400 X10*3/uL [facility] Mean Platelet Volume 11.2 9.4 - 12.3 fL [facility] NRBC Pct Auto 0.0 0.0 - 0.2 /100WBC [facility] NRBC Abs Auto 0.000 0.0 - 0.012 X10*3/uL [facility] Blood Venous blood specimen / Unknown 09/05/2024 11:10 AM EDT 09/05/2024 1:22 PM EDT Ava Yap DO LAB BLOOD ORDERABLES Final R esult [facility] [address] [place] [phone] * Basic Metabolic Panel (09/05/2024 11:10 AM EDT) Sodium 140 135 - 145 mmol/L [facility] Potassium 3.9 3.3 - 5.1 mmol/L [facility] Chloride 108 96 - 108 mmol/L [facility] Carbon Dioxide 24 22 - 29 mmol/L [facility] Anion Gap 12 12 - 20 [facility] Urea Nitrogen (BUN) 12 9 - 16 mg/dL [facility] Creatinine, Serum 0.74 0.5 - 1.4 mg/dL [facility] Estimated Glomerular Filt Rate >60 [facility] Comment:Chronic Kidney Disea se: Estimated GFR < 60 mL/min/1.22m6Woebmp Kidney Disease: Estimated GFR < 15 mL/min/1.73m2 Glucose 107 60 - 115 mg/dL [facility] Calcium 9.7 8.4 - 10.2 mg/dL [facility] Blood Venous blood specimen / Unknown 09/05/2024 11:10 AM EDT 09/05/2024 1:25 PM EDT Ava Yap DO LAB BLOOD ORDERABLES Final R esult [facility] [address] [place] [phone] * Hemoglobin A1c (09/05/2024 11:10 AM EDT) Hemoglobin A1c 6.0 <6.0 % [facility] Comment:Hemoglobin A1C Refer ence Range Adults: 4.8 - 6.0 % Non diabetic: < 6.0 % Goal: < 7.0 %Additional Action Suggested: > 8.0 %Note: Hemoglobin A1c results are invalid for patients with abnormal amounts of HbF. Blood transfusions may impact the HbA1c concentration in the patient sample. Estimated Average Glucose 126 mg/dL [facility] Comment:eAG = Estimated ave rage glucose which is %A1C expressed asaverage glucose, using the formula of the K1C-RmepixmIhrsjjm Glucose study (ADAG), Diabetes Care, Vol.31,#8,2007 Blood Venous blood specimen / Unknown 09/05/2024 11:10 AM EDT 09/05/2024 1:22 PM EDT us Ava Yap DO LAB BLOOD ORDERABLES Final R esult Performing Organization Address [facility] Co de Phone Number [facility] [address] [place] [address] [phone] * (ABNORMAL) Hepatic Function Panel (09/05/2024 11:10 AM EDT) Bilirubin, Total 0.4 0.0 - 1.0 mg/dL [facility] Bilirubin, Direct 0.1 0.0 - 0.5 mg/dL [facility] Aspartate Amino Transferase 26 5 - 31 U/L [facility] Alanine Aminotransferase 33(H) 0 - 31 U/L [facility] Total Protein 8.0 6.5 - 8.0 g/dL [facility] Albumin Level 4.5 3.5 - 5.0 g/dL [facility] Alkaline Phosphatase 84 39 - 117 U/L [facility] Blood Venous blood specimen / Unknown 09/05/2024 11:10 AM EDT 09/05/2024 1:25 PM EDT Ava Yap LAB BLOOD ORDERABLES Final R esult [facility] [address] [place] [phone] * TSH (09/05/2024 11:10 AM EDT) Thyroid Stimulating Hormone 2.68 0.32 - 4.0 uIU/mL [facility] Comment:Note: A sustained TS H level above 2.5 uIU/mL may warrant further investigation. TSH 3rd Generation ([facility]) Blood Venous blood specimen / Unknown 09/05/2024 11:10 AM EDT 09/05/2024 1:25 PM EDT Ava Yap LAB BLOOD ORDERABLES Final R esult Performing Organization Address City/[facility]/ZIP Co de Phone Number [facility] [address] [place] [address] [phone] * (ABNORMAL) Lipid Panel, Standard (09/05/2024 11:10 AM EDT) Triglycerides 344(H) <150 mg/dL [facility] Comment:Desirable Triglyceri de: less than 150 mg/dLBorderline High Triglyceride 150-199 mg/dLHigh Triglyceride: 200-499 mg/dLVery High Triglyceride: greater than or equal to 5OO mg/dL Cholesterol 273(H) <200 mg/dL [facility] Comment:Desirable Cholestero l: less than 200 mg/dLBorderline High Cholesterol: 200-239 mg/dLHigh Cholesterol: greater than 239 mg/dL LDL Cholesterol Calculated 161(H) <100 mg/dL [facility] Comment:Desirable LDL: less than 100 mg/dLNear Optimal/Above Optimal LDL: 110- 129 mg/dLBorderline High LDL: 130-159 mg/dLHigh LDL: 160-189 mg/dLVery High LDL: greater than or equal to 190 mg/dL HDL Cholesterol 44 >40 mg/dL [facility] Comment:Desirable HDL: great er than 40 mg/dL Note: This HDL assay may give artificially low results in patients with liver disease. Blood Venous blood specimen / Unknown 09/05/2024 11:10 AM EDT 09/05/2024 1:25 PM EDT us Ava Yap DO LAB BLOOD ORDERABLES Final R esult [facility] [address] [place], [place] [phone] * (ABNORMAL) Vitamin D, 25-Hydroxy, Total, Immunoassay (09/05/2024 11:10 AM EDT) Vitamin D 25-OH Total 25.6(L) >30 ng/mL [facility] Comment: Health Based Reference Values*< 20 ??ng/mL ??Pnlterwql98-76 ng/mL ??Insufficient> 30 ??ng/mL ??Sufficient*Rafi NUÑEZ. N [...] EDT 09/05/2024 1:25 PM EDT us Ava Fracisco DO LAB BLOOD ORDERABLES Final R esult Performing Organization Address City/[facility]/ZIP Co de Phone Number [facility] [address] [place] [phone] * T4, Free (09/05/2024 11:10 AM EDT) Free T4 (Free Thyroxine) 1.05 0.71 - 1.85 ng/dL [facility] Blood Venous blood specimen / Unknown 09/05/2024 11:10 AM EDT 09/05/2024 1:25 PM EDT us Ava Fracisco DO LAB BLOOD ORDERABLES Final R esult Performing Organization Address City/[facility] Co de Phone Number [facility] [address] [place] [phone] documented in this encounter Visit Diagnoses Diagnosis Essential hypertension- Primary Unspecified essential hypertension Other hyperlipidemia Prediabetes Other abnormal glucose Fatty liver Other chronic nonalcoholic liver disease Coronary arteriosclerosis Coronary atherosclerosis of unspecified type of vessel, little traverse or graft Bipolar disease, chronic (CMS/HCC) Moderate [...] documented as of this encounter Care Teams Transplant Rn Relationship Specialty Start Date End Date Ava Yap DO [address] [place] [address] PCP - General Family Medicine 03/28/11 Avelina Hodges Ignition SpecialistSurvey Researcher 04/21/23 documented as of this encounter
--- OUTSIDE RECORDS SUMMARY | 2024-09-06 15:05 | XMS_ITS | Encounter Summary ---
Author Organization [employer] Address [address] [facility] [address] [place] [address] Care Team Providers Care Concrete Paving Supervisor Name Role Phone Fracisco Ava Primary Care Provider + [phone] Reason for Visit * Reason Comments Med Refill Encounter Details Date Type Department Care Team ([facility] st Contact Info) Description 09/02/2024 Refill [facility] [address] [place] [address] Teetee Matthews MD [address] [place] [address] Anxiety; Chronic pain of both knees Social [...] Description 11/28/2024 1:30 PM EDT Clinical Support [facility] [address] [place] [address] Denisha Cross, RN documented as of this encounter Visit Diagnoses Diagnosis Anxiety Anxiety state, unspecified Chronic pain of both knees documented in this encounter Additional Health Concerns Assessment Noted Time PHQ-9 Depression Total Score: 5 06/22/20 23 10:59 AM EST documented as of this encounter Care Teams Concrete Paving Supervisor Relationship Specialty Start Date End Date Ava Yap DO [address] [place] [address] PCP - General Family Medicine 03/28/11 Avelina Hodges Plant CytologistPutty Tinter Maker 04/21/23 documented as of this encounter
== END 2024-09-06 13:55 | disposition home or self-care (01) ==
LOC: HO.HBS 13:28
PROVIDERS: PCP Family Medicine; Visit Provider Physician Assistant Surgical
DX: E66.01 Morbid (severe) obesity due to excess calories (principal)
CPT/HCPCS: 99213

== ENCOUNTER → 2024-09-06 13:28 | Outpatient (BNVA) | payer MEDICAID, SELFPAY | PROVIDERS: PCP Family Medicine; Visit Provider Physician Assistant Surgical | DX: E66.01 Morbid (severe) obesity due to excess calories (principal); Z68.42 Body mass index [BMI] 45.0-49.9, adult | CPT/HCPCS: 99212 ==

== ENCOUNTER 2024-10-09 09:06 | Outpatient (REF) | payer MEDICAID, SELFPAY ==
--- OUTSIDE RECORDS SUMMARY | 2024-10-09 09:50 | XMS_ITS | Encounter Summary ---
Author Organization [employer] Address [address] [address] Care Team Providers Care Senior Marketing Associate Name Role Phone Ava Yap DO Primary Care Provider + [phone] Reason for Visit * Reason Comments Med Refill Encounter Details Date Type Department Care Team (Late st Contact Info) Description 01/29/2024 Refill [facility] [address] [place] [address] Ava Yap DO [address] [place] [address] Anxiety; Chronic bilateral low back pain, unspecified [...] Description 11/28/2024 1:30 PM EDT Clinical Support [facility] [address] [place] [address] Denisha Cross, DEVI documented as of this encounter Visit Diagnoses Diagnosis Anxiety Anxiety state, unspecified Chronic bilateral low back pain, unspecified whether sciatica present documented in this encounter Additional Health Concerns Assessment Noted Time PHQ-9 Depression Total Score: 5 06/22/20 23 10:59 AM EST documented as of this encounter Care Teams Senior Marketing Associate Relationship Specialty Start Date End Date Ava Yap DO [address] [place] [address] PCP - General Family Medicine 03/28/11 Avelina Hodges Ham CurerCommissary Helper 04/21/23 documented as of this encounter
--- OUTSIDE RECORDS SUMMARY | 2024-10-09 09:50 | XMS_ITS | Clinical Summary ---
Author Organization [facility] Address [address] [place] [address] Care Team Providers Care Business Change Manager Name Role Phone Pcp, No Primary Care Provider Unavailabl e Allergies No known active allergies Medications amoxicillin-cla vulanate (AUGMENTIN) 875-125 MG per tablet Take 1 tablet by mouth 2 (two) times a day. Take as directed or until you run out 20 tablet 08/13/2022 Active Social History Tobacco Use Types Packs/Day Years Used Date Smoking Tobacco: Never Assessed Comments Unknown Sex and Gender Information Value Date Recorded Sex Assigned at Female 08/15/2022 2:42 PM EST Legal Sex Female 6:11 PM EST Gender Identity Female 08/15/2022 2:42 [...] 2) 12/05/2021 Influenza Vaccine 01/25/2024 COVID-19 Vaccine (3 - 2023-2 5 season) 2024 06/15/2021, 10/03/2020 Pneumococcal Vaccine: Pediatric (0-5 Years) and At-Risk Patients (6 to 49 Years) Aged Out No longer eligible b ased on patient's age to complete this topic Insurance [facility] Care Teams Business Change Manager Relationship Specialty Start Date End Date Pcp, No PCP - General General Medicine 08/12/22
--- OUTSIDE RECORDS SUMMARY | 2024-10-09 09:50 | XMS_ITS | Encounter Summary ---
Author Organization [employer] Address [address] [place] [address] Care Team Providers Care Baggage Agent Name Role Phone Ava Yap DO Primary Care Provider + [phone] Reason for Visit * Reason Comments Med Refill Encounter Details Date Type Department Care Team (Late Contact Info) Description 11/14/2022 Refill [facility] [address] [place] [phone] Ava Yap DO [address] [place] [address] [phone] Anxiety Social History Tobacco Use Types Packs/Day [...] Clinical Support [facility] [address] [place] [address] [phone] Denisha Cross RN documented as of this encounter Visit Diagnoses Diagnosis Anxiety Anxiety state, unspecified documented in this encounter Additional Health Concerns Assessment Noted Time PHQ-9 Depression Total Score: 0 07/27/19 23 11:46 AM EST documented as of this encounter Care Teams Baggage Agent Relationship Specialty Start Date End Date Ava Yap DO [address] [place] [address] PCP - General Family Medicine 03/28/11 Avelina Hodges Guide AlpineVehicle Sales Professional 04/21/23 documented as of this encounter
--- OUTSIDE RECORDS SUMMARY | 2024-10-09 09:50 | XMS_ITS | Encounter Summary ---
Author Organization [employer] Address [address] [facility] [address] [place] [address] Care Team Providers Care Printed Circuit Board Layout Designer Name Role Phone FraciscoAva Primary Care Provider + [phone] Reason for Visit * Reason Comments Med Refill Encounter Details Date Type Department Care Team (Late st Contact Info) Description 08/04/2023 Refill [facility] [address] [place] [address] Svetlana Mccollum MD [address] [place] [address] Anxiety Social History Tobacco Use Types Packs/Day [...] EDT Clinical Support [facility] [address] [place] [phone] Denisha Cross RN documented as of this encounter Visit Diagnoses Diagnosis Anxiety Anxiety state, unspecified documented in this encounter Additional Health Concerns Assessment Noted Time PHQ-9 Depression Total Score: 5 06/22/20 23 10:59 AM EST documented as of this encounter Care Teams Printed Circuit Board Layout Designer Relationship Specialty Start Date End Date Ava Yap DO [address] [place] [phone] PCP - General Family Medicine 03/28/11 Avelina Hodges Community Development WorkerSlot Floor Supervisor 04/21/23 documented as of this encounter
--- OUTSIDE RECORDS SUMMARY | 2024-10-09 09:50 | XMS_ITS | Encounter Summary ---
Author Organization [employer] Address 75 [facility] 7[place], [place] [address] Care Team Providers Care Photo Stylist Name Role Phone FraciscoAva Primary Care Provider + [phone] Reason for Visit * Reason Comments Med Refill Encounter Details Date Type Department Care Team ([facility] st Contact Info) Description 04/26/2023 Refill [facility] MEDICINE [address] [place] [address] Vesna Sanabria MD [address] [place] [address] Anxiety Social History Tobacco Use Types Packs/Day [...] Description 11/28/2024 1:30 PM EDT Clinical Support [facility] MEDICINE [address] [place] [address] Denisha Cross RN documented as of this encounter Visit Diagnoses Diagnosis Anxiety Anxiety state, unspecified documented in this encounter Additional Health Concerns Assessment Noted Time PHQ-9 Depression Total Score: 21 023 10:23 AM EDT documented as of this encounter Care Teams Photo Stylist Relationship Specialty Start Date End Date Ava Yap DO [address] [place] [address] PCP - General Family Medicine 03/28/11 Avelina Hodges Finger Lift OperatorAssistant Professor Of Dietetics 04/21/23 documented as of this encounter
--- OUTSIDE RECORDS SUMMARY | 2024-10-09 09:50 | XMS_ITS | Encounter Summary ---
Author Organization [employer] Address [address] [address] Care Team Providers Care Police Captain Name Role Phone Ava Yap DO Primary Care Provider + [phone] Reason for Visit * Reason Comments Med Refill Encounter Details Date Type Department Care Team ([facility] st Contact Info) Description 07/04/[address] [facility] MEDICINE [address] [place] [address] Ava Yap DO 230 [place] [address] Anxiety; Chronic bilateral low back pain, unspecified [...] [facility] MED[facility] [address] [place] [address] Denisha Cross, DEVI documented as of this encounter Visit Diagnoses Diagnosis Anxiety Anxiety state, unspecified Chronic bilateral low back pain, unspecified whether sciatica present documented in this encounter Additional Health Concerns Assessment Noted Time PHQ-9 Depression Total Score: 5 06/22/20 23 10:59 AM EST documented as of this encounter Care Teams Police Captain Relationship Specialty Start Date End Date Ava Yap DO 230 [place] [address] PCP - General Family Medicine 03/28/11 Avelina Hodges Awning CraftsmanVideo Engineer 04/21/23 documented as of this encounter
--- OUTSIDE RECORDS SUMMARY | 2024-10-09 09:50 | XMS_ITS | Encounter Summary ---
Author Organization [employer] Address 75 [facility] 7 [place] [address] Care Team Providers Care Hospital Wellness Coordinator Name Role Phone Fracisco Ava Primary Care Provider + [phone] Reason for Visit * Reason Comments Med Refill Encounter Details Date Type Department Care Team ([facility] [place] st Contact Info) Description 02/28/2024 Refill [facility] 230 [place] [address] Johan Kraft MD 230 [place] [address] Social History Tobacco Use Types Packs/Day Years [...] Description 11/28/2024 1:30 PM EDT Clinical Support [facility] MEDICINE [address] [place] [address] Denisha Cross RN documented as of this encounter Visit Diagnoses Not on filedocumented in this encounter Additional Health Concerns Assessment Noted Time PHQ-9 Depression Total Score: 5 06/22/20 23 10:59 AM EST documented as of this encounter Care Teams Hospital Wellness Coordinator Relationship Specialty Start Date End Date Ava Yap DO 230 [place] [address] PCP - General Family Medicine 03/28/11 Avelina Hodges Ham BonerBack Order Clerk 04/21/23 documented as of this encounter
--- OUTSIDE RECORDS SUMMARY | 2024-10-09 09:50 | XMS_ITS | Encounter Summary ---
Author Organization [employer] Address 75 [facility] 7 [place] [address] Care Team Providers Care Acting Section Chief Name Role Phone Ava Yap DO Primary Care Provider + [phone] Reason for Visit * Reason Onset Date Comments Med Refill Schedule DOORPERSON OR LUGGAGE PORTER Initial 04/26/2023 Encounter Details Date Type Department Care Team (Late st Contact Info) Description 04/26/2023 Refill [facility] MED [facility] PEDS [address] [place] [address] Ava Yap DO [address] [facility] [place] [address] Anxiety; Chronic bilateral low back pain, unspecified [...] - 04/26/2023 11:55 AM EDT TC via P/I#[id number], male voice answered, stated pt was not available. L/M with Rich requesting pt call back to schedule DOORPERSON OR LUGGAGE PORTER Initial appt. documented in this encounter Plan of Treatment Upcoming Encounters Date Type Department Care Team (Late st Contact Info) Description 11/28/2024 1:30 PM EDT Clinical Support [facility] MEDICINE 230 [place] [address] Denisha Cross, RN documented as of this encounter Visit Diagnoses Diagnosis Anxiety Anxiety state, unspecified Chronic bilateral low back pain, unspecified whether sciatica present documented in this encounter Additional Health Concerns Assessment Noted Time PHQ-9 Depression Total Score: 21 023 10:23 AM EDT documented as of this encounter Care Teams Acting Section Chief Relationship Specialty Start Date End Date Ava Yap DO 230 [place] [address] PCP - General Family Medicine 03/28/11 Avelina Hodges Human Capital ManagerDiesel Crane Operator 04/21/23 documented as of this encounter
--- OUTSIDE RECORDS SUMMARY | 2024-10-09 09:50 | XMS_ITS | Encounter Summary ---
Author Organization [employer] Address 75 [facility] [address] [address] Care Team Providers Care Wall Taper Helper Name Role Phone Ava Yap DO Primary Care Provider + [phone] Reason for Visit * Reason Comments Med Refill Encounter Details Date Type Department Care Team ([facility] st Contact Info) Description 07/05/2023 Refill [facility] MEDICINE 230 [place] [address] Ava Yap DO [address] [place] [address] Chronic bilateral low back pain, unspecified whether [...] Description 11/28/2024 1:30 PM EDT Clinical Support [facility] MEDICINE 230 [place] [address] Denisha Cross, DEVI documented as of this encounter Visit Diagnoses Diagnosis Chronic bilateral low back pain, unspecified whether sciatica present Anxiety Anxiety state, unspecified documented in this encounter Additional Health Concerns Assessment Noted Time PHQ-9 Depression Total Score: 5 06/22/20 23 10:59 AM EST documented as of this encounter Care Teams Wall Taper Helper Relationship Specialty Start Date End Date Ava Yap DO [address] [place] [address] PCP - General Family Medicine 03/28/11 Avelina Hodges Income Tax AdvisorAssociate Vice President 04/21/23 documented as of this encounter
--- OUTSIDE RECORDS SUMMARY | 2024-10-09 09:50 | XMS_ITS | Encounter Summary ---
Author Organization [employer] Address 75 [facility] 7[place] [address] Care Team Providers Care Package Yarns Drying Machine Operator Name Role Phone Ava Yap DO Primary Care Provider + [phone] Reason for Visit * Reason Comments Med Refill Encounter Details Date Type Department Care Team ([facility] st Contact Info) Description 12/14/2023 Refill [facility] MEDICINE 230 [place] [address] Ava Yap DO 230 [place] [address] Anxiety Social History Tobacco Use Types Packs/Day [...] 1:30 PM EDT Clinical Support [facility] MEDICINE [address] [place] [address] Denisha Cross RN documented as of this encounter Visit Diagnoses Diagnosis Anxiety Anxiety state, unspecified documented in this encounter Additional Health Concerns Assessment Noted Time PHQ-9 Depression Total Score: 5 06/22/20 23 10:59 AM EST documented as of this encounter Care Teams Package Yarns Drying Machine Operator Relationship Specialty Start Date End Date Ava Yap DO [address] [place] [address] PCP - General Family Medicine 03/28/11 Avelina Hodges Log SawyerFitness Attendant 04/21/23 documented as of this encounter
--- OUTSIDE RECORDS SUMMARY | 2024-10-09 09:50 | XMS_ITS | Encounter Summary ---
Author Organization [employer] Address 75 [facility] 7[place], [place] [address] Care Team Providers Care Business Development Recruiter Name Role Phone Ava Yap DO Primary Care Provider + [phone] Reason for Visit * Reason Comments Med Refill Encounter Details Date Type Department Care Team ([facility] st Contact Info) Description 05/03/2024 Refill [facility] MEDICINE [address] [place] [address] Ava Yap DO 230 [place] [address] Anxiety; Chronic pain of both knees Social [...] 1:30 PM EDT Clinical Support [facility] MEDICINE [address] [place] [address] Denisha Cross RN documented as of this encounter Visit Diagnoses Diagnosis Anxiety Anxiety state, unspecified Chronic pain of both knees documented in this encounter Additional Health Concerns Assessment Noted Time PHQ-9 Depression Total Score: 5 06/22/20 23 10:59 AM EST documented as of this encounter Care Teams Business Development Recruiter Relationship Specialty Start Date End Date Ava Yap DO 230 [place] [address] PCP - General Family Medicine 03/28/11 Avelina Hodges Front Sight AttacherDriver License Agent 04/21/23 documented as of this encounter
--- OUTSIDE RECORDS SUMMARY | 2024-10-09 09:50 | XMS_ITS | Encounter Summary ---
Author Organization [employer] Address [address] [place] [address] Care Team Providers Care Wool Grower Name Role Phone Ava Yap DO Primary Care Provider + [phone] Encounter Details Date Type Department [facility] Description 07/18/2022 Orders Only [facility] [address] [place] [address] Ava Holt LPN Social History Tobacco Use [...] Description 11/28/2024 1:30 PM EDT Clinical Support [facility] MEDICINE [address] [place] [address] Denisha Cross RN documented as of this [...] AM EST) Influenza A PCR NEGATIVE Negative [facility] Influenza B PCR NEGATIVE Negative [facility] Resp Syncy Virus RNA Qual PCR NEGATIVE Negative [facility] SARS COV2 PCR NEGATIVE Negative [facility] SARS/Flu/RSV Note See Note [facility] [...] use by authorized laboratories.Testing performed on the [employer] GeneXpert utilizingreal-time RT-PCR.All SARS CoV2 and positive influenza A/B results arereported to [facility]. 08/12/2022 10:3 2 AM EST 08/12/2022 10:37 AM EST us [facility] Exter nal Provider LAB MICROBIOLOGY - GENERAL ORDERABLES Final Result [facility] [address] [place] [phone] * Sed Rate by Modified Mikalergren (08/12/2022 10:32 AM EST) Erythrocyte Sedimentation Rate 16 0 - 20 MM/HR [facility] Comment:Patients with polycy themia and many hemoglobin abnormalitiesmay have depressed sed rates whereas patients with anemiamay have elevated sed rates. 08/12/2022 10:3 2 AM EST 08/12/2022 10:37 AM EST [facility] External Provider LAB BLO OD ORDERABLES Final Result Performing Organization Address City/[facility]/ZIP Co de Phone Number [facility] [address] [place] [address] [phone] * C-reactive Protein (08/12/2022 10:32 AM EST) Pathologist [facility] C Reactive Protein 0.41 < or = 0.50 mg/dL [facility] 08/12/2022 10:3 2 AM EST 08/12/2022 10:37 AM EST [facility] External Provider LAB BLO OD ORDERABLES Final Result [facility] [address] [place] [address] [phone] * (ABNORMAL) Basic Metabolic Panel (08/12/2022 10:32 AM EST) Pathologist [facility] Sodium 142 135 - 145 mmol/L [facility] Potassium 4.3 3.3 - 5.1 mmol/L [facility] Chloride 109(H) 96 - 108 mmol/L [facility] Carbon Dioxide 23 22 - 29 mmol/L [facility] Anion Gap 14 12 - 20 [facility] Urea Nitrogen (BUN) 11 9 - 16 mg/dL [facility] Creatinine, Serum 0.76 0.5 - 1.4 mg/dL [facility] Creatinine Clr Calc Pharmacy 92.0 [facility] Comment:Provided height and weight: 149.86 cm,99.79 kg.eGFR (calculated from the MDRD study equation) and eCrCl(calculated from the Cockcroft-Gault equation) are based ondifferent parameters and may not yield comparable results.If eCrCl result is absurd, please check patient'sheight/weight. Estimated Glomerular Filt Rate >60 [facility] Comment:NOTE: For -Am erican individuals, multiply the result by 1.210.Chronic Kidney Disease: Estimated GFR < 60 mL/min/1.66q1Bqxllz Kidney Disease: Estimated GFR < 15 mL/min/1.73m2 Glucose 113 60 - 115 mg/dL [facility] Calcium 9.7 8.4 - 10.2 mg/dL [facility] 08/12/2022 10:3 2 AM EST 08/12/2022 10:37 AM EST us [facility] External Provider LAB BLO OD ORDERABLES Final Result [facility] [address] [place], [place] [phone] * (ABNORMAL) CBC auto differential (08/12/2022 10:32 AM EST) White Blood Count 5.9 4.8 - 10.8 X10*3/uL [facility] Red Blood Count 4.44 4.20 - 5.50 X10*6/uL [facility] Hemoglobin 13.4 12.0 - 16.0 g/dl [facility] Hematocrit 40.5 37.0 - 47.0 % [facility] Mean Corpuscular Volume 91.2 80.0 - 98.0 fL [facility] Mean Corpuscular Hemoglobin 30.2 27.0 - 33.0 pg [facility] Mean Corpuscular HGB Conc 33.1 31.0 - 35.0 g/dl [facility] Red Cell Distribution Width 13.2 11.0 - 16.0 % [facility] Platelet Count 252 160 - 400 X10*3/uL [facility] Mean Platelet Volume 10.7 9.4 - 12.3 fL [facility] Neutrophils Percent Auto 49.0 45 - 73 % [facility] Imm Gran Pct Auto 0.2 0.0 - 0.4 % [facility] Lymphocytes Percent Auto 40.9(H) 20 - 40 % [facility] Monocytes Percent Auto 8.8 2 - 11 % [facility] Eosinophils Percent Auto 0.8 0 - 4 % [facility] Basophils Percent Auto 0.3 0 - 2 % [facility] NRBC Pct Auto 0.0 0.0 - 0.2 /100WBC [facility] Neutrophils Absolute Auto 2.9 2.0 - 8.3 x10*3/uL [facility] Imm Gran Abs Auto 0.01 0.00 - 0.03 X10*3/uL [facility] Lymphocytes Absolute Auto 2.4 1.2 - 4.9 X10*3/uL [facility] Monocytes Absolute Auto 0.5 0.1 - 1.2 X10*3/uL [facility] Eosinophils Absolute Auto 0.1 0.0 - 0.4 X10*3/uL [facility] Basophils Absolute Auto 0.0 0.0 - 0.2 X10*3/uL [facility] NRBC Abs Auto 0.000 0.0 - 0.012 X10*3/uL [facility] 08/12/2022 10:3 2 AM EST 08/12/2022 10:37 AM EST us [facility] External Provider LAB BLO OD ORDERABLES Final Result [facility] [address] [place] [address] [phone] * Strep A Nucleic Acid (08/12/2022 9:10 AM EST) IDNOW SERIAL# [id number] [facility] Strep A Nucleic Acid Negative Negative [facility] Comment:All test results mus t be correlated with clinical findings.This test has not been evaluated for monitoring treatment ofinfection.Additional follow-up testing using the culture method isrequired if the result is negative and clinical symptomspersist, or in the event of an acute rheumatic feveroutbreak. 08/12/2022 9:10 AM EST 08/12/2022 9:12 AM EST us [facility] Exter nal Provider LAB MICROBIOLOGY - GENERAL ORDERABLES Final Result [facility] [address] [place] [address] [phone] * CT Chest w/o Contrast (08/09/2022 9:07 AM EST) Anatomical Region Laterality Modality Body, Chest Computed Tomogra phy 08/09/2022 9:07 AM EST Narrative 08/13/2022 11:33 AM EST ? [facility] ?[address] ?[place] [address] ? CT Scan Report ? Signed ? Patient: Ximena Xiong ?MR#: ?? [id number] ? : 1970 ?Acct:[id number] ? Age/Sex: 51 / F ?ADM Date: 08/09/22 ? Loc: HO.CT ? Attending Dr: Ava Yap DO ? Ordering Physician: Ava Yap DO ?? Date of Service: 08/09/22 ?? Procedure(s): CT chest wo IV con ?? Accession Number(s): [id number] ? cc: Ava Yap DO ? EXAMINATION: [...] 1131 ? DD/ 0907 ? TD/TT: ? Mis Manager: SS ? Procedure Note Frances, Image - 08/13/[address] [address] [address] Scan Report Signed Patient: Kody Xiong#: [id number] : 1970Acct:[id number] Age/Sex: 51 / FADM Date: 08/09/22 Loc: HO.CT Attending Dr: Ava Yap DO Ordering Physician: Ava Yap DO Date of Service: 08/09/22 Procedure(s): CT chest wo IV con Accession Number(s): [id number] cc: Ava Yap DO EXAMINATION: CT CHEST [...] in OV> 08/13/22 1131 DD/ 0907 TD/TT: Mis Manager: MEDARDO [facility] External Provider IMG CT PROCEDURES Edited Result - Final documented in this encounter Visit Diagnoses Not on filedocumented in this encounter Care Teams Wool Grower Relationship Specialty Start Date End Date Ava Yap DO [address] [place] [address] PCP - General Family Medicine 03/28/11 Avelina Hodges Electrical InspectorSledger 04/21/23 documented as of this encounter
--- OUTSIDE RECORDS SUMMARY | 2024-10-09 09:50 | XMS_ITS | Encounter Summary ---
Author Organization [employer] Address [address] [place] [address] Care Team Providers Care Production Honing Machine Operator Name Role Phone Ava Yap DO Primary Care Provider + [phone] Encounter Details Date Type Department Care Team ([facility] Contact Info) Description 07/19/2022 Telephone [facility] MEDICINE [address] [place] [address] Ava Yap DO [address] [place] [address] Social History Tobacco Use Types Packs/Day Years [...] Description 11/28/2024 1:30 PM EDT Clinical Support [facility] MEDICINE [address] [place] [address] Denisha Cross RN documented as of this encounter Visit Diagnoses Not on filedocumented in this encounter Care Teams Production Honing Machine Operator Relationship Specialty Start Date End Date Ava Yap DO [address] [place] [address] PCP - General Family Medicine 03/28/11 Avelina Hodges Playground DirectorInsurance Verification Clerk 04/21/23 documented as of this encounter
--- OUTSIDE RECORDS SUMMARY | 2024-10-09 09:50 | XMS_ITS | Encounter Summary ---
Author Organization [employer] Address [address] [address] Care Team Providers Care Mail Clerks Supervisor Name Role Phone Ava Yap DO Primary Care Provider + [phone] Reason for Visit * Reason Comments Med Refill Encounter Details Date Type Department Care Team ([facility] st Contact Info) Description 03/22/2024 Refill [facility] MEDICINE [address] [place] [address] Ava Yap DO [address] [place] [address] Chronic low back pain, unspecified back pain [...] Description 11/28/2024 1:30 PM EDT Clinical Support [facility] MEDICINE [address] [place] [address] Denisha Cross, DEVI documented as of this encounter Visit Diagnoses Diagnosis Chronic low back pain, unspecified back pain laterality, unspecified whether sciatica present documented in this encounter Additional Health Concerns Assessment Noted Time PHQ-9 Depression Total Score: 5 06/22/20 23 10:59 AM EST documented as of this encounter Care Teams Mail Clerks Supervisor Relationship Specialty Start Date End Date Ava Yap DO [address] [place] [address] PCP - General Family Medicine 03/28/11 Avelina Hodges Coffee Break AttendantCommunity Engagement Leader 04/21/23 documented as of this encounter
--- OUTSIDE RECORDS SUMMARY | 2024-10-09 09:50 | XMS_ITS | Encounter Summary ---
Author Organization [employer] Address [address] [address] Care Team Providers Care Pricing Clerk Name Role Phone Ava Yap DO Primary Care Provider + [phone] Reason for Visit * Reason Onset Date Comments Appointment Request 07/16/2024 Call Back Request 07/16/2024 Encounter Details Date Type Department Care Team ([facility] st Contact Info) Description 07/16/2024 Telephone [facility] MEDICINE [address] [place] [address] Ava Yap DO [address] [place] [address] Appointment Request; Call Back Request Social History [...] she don't want to be without meds. [phone] documented in this encounter Plan of Treatment Upcoming Encounters Date Type Department Care Team (Late st Contact Info) Description 11/28/2024 1:30 PM EDT Clinical Support [facility] MEDICINE [address] [place] [address] Denisha Cross RN documented as of this encounter Visit Diagnoses Not on filedocumented in this encounter Additional Health Concerns Assessment Noted Time PHQ-9 Depression Total Score: 5 06/22/20 10:59 AM EST documented as of this encounter Care Teams Pricing Clerk Relationship Specialty Start Date End Date Ava Yap DO [address] [place] [address] PCP - General Family Medicine 03/28/11 Avelina Hodges Quality Assurance Monitor BodyRoofing Plant Supervisor 04/21/23 documented as of this encounter
--- OUTSIDE RECORDS SUMMARY | 2024-10-09 09:50 | XMS_ITS | Encounter Summary ---
Author Organization [employer] Address 75 [facility] 7[place] [address] Care Team Providers Care Silhouette Artist Name Role Phone Ava Yap DO Primary Care Provider + [phone] Reason for Visit * Reason Comments Med Refill Encounter Details Date Type Department Care Team ([facility] st Contact Info) Description 05/03/2024 Refill [facility] MEDICINE [address] [place] [address] Ava Yap DO [address] [place] [address] Anxiety; Chronic pain of both knees Social [...] Description 11/28/2024 1:30 PM EDT Clinical Support [facility] MEDICINE [address] [place] [address] Denisha Cross RN documented as of this encounter Visit Diagnoses Diagnosis Anxiety Anxiety state, unspecified Chronic pain of both knees documented in this encounter Additional Health Concerns Assessment Noted Time PHQ-9 Depression Total Score: 5 06/22/20 23 10:59 AM EST documented as of this encounter Care Teams Silhouette Artist Relationship Specialty Start Date End Date Ava Yap DO [address] [place] [address] PCP - General Family Medicine 03/28/11 Avelina Hodges Aircraft Engine InstallerSheet Metal Roofer 04/21/23 documented as of this encounter
--- OUTSIDE RECORDS SUMMARY | 2024-10-09 09:50 | XMS_ITS | Encounter Summary ---
Author Organization [employer] [facility] Address [address] [place] [address] Care Team Providers Care Document Management Consultant Name Role Phone Ava Yap DO Primary Care Provider + [phone] Reason for Visit * Reason Comments Med Refill Encounter Details Date Type Department Care Team ([facility] Contact Info) Description 03/19/2023 Refill [facility] MEDICINE [address] [place] [address] Ava Yap DO [address] [place] [id number] Social History Tobacco Use Types Packs/Day Years [...] Upcoming Encounters Date Type Department Care Team ([facility] Contact Info) Description 11/28/2024 1:30 PM EDT Clinical Support [facility] MEDICINE [address] [place] [address] Denisha Cross RN documented as of this encounter Visit Diagnoses Not on filedocumented in this encounter Additional Health Concerns Assessment Noted Time PHQ-9 Depression Total Score: 21 023 10:23 AM EDT documented as of this encounter Care Teams Document Management Consultant Relationship Specialty Start Date End Date Ava Yap DO [address] [place] [address] PCP - General Family Medicine 03/28/11 Avelina Hodges Machine Heel Seat FitterOrthopedics Teacher 04/21/23 documented as of this encounter
--- OUTSIDE RECORDS SUMMARY | 2024-10-09 09:50 | XMS_ITS | Encounter Summary ---
Author Organization [employer] Address [address] [place] [address] Care Team Providers Care Psychotherapist Social Worker Name Role Phone FraciscoAva Primary Care Provider + [phone] Reason for Visit * Reason Comments Med Refill Encounter Details Date Type Department Care Team ([facility] st Contact Info) Description 08/04/2023 Refill [facility] [address] [place] [address] Vesna Sanabria MD [address] [place] [address] Chronic bilateral low back pain, unspecified whether [...] 11/28/2024 1:30 PM EDT Clinical Support [facility] [address] [place] [address] Denisha Cross, DEVI documented as of this encounter Visit Diagnoses Diagnosis Chronic bilateral low back pain, unspecified whether sciatica present documented in this encounter Additional Health Concerns Assessment Noted Time PHQ-9 Depression Total Score: 5 06/22/20 23 10:59 AM EST documented as of this encounter Care Teams Psychotherapist Social Worker Relationship Specialty Start Date End Date Ava Yap DO [address] [place] [address] PCP - General Family Medicine 03/28/11 Avelina Hodges [employer] 04/21/23 documented as of this encounter
--- OUTSIDE RECORDS SUMMARY | 2024-10-09 09:51 | XMS_ITS | Clinical Summary ---
Author Organization [employer] Address [address] [facility] [address] [place] [address] Care Team Providers Care Linux Support Engineer Name Role Phone FraciscoAva Primary Care Provider + [phone] Allergies Active Allergy Reactions Criticality Noted Date Comments Hydrochlorothiazide 09/04/2019 Loratadine Low 12/23/2014 Other reaction(s): Itchy, Burning sensation Other reaction(s): CHILLS AND DIFF BREATHING Medications * This document contains information received from the source organization and may not represent a complete record from that organization. amLODIPine (Norvasc) 10 MG tablet TAKE 1 [...] MOUTH EVERY DAY 30 capsule 024 Active lisinopril 5 MG tablet TAKE 1 [...] bedtime (pain). 150 g 3 025 Active LORazepam (Ativan) 2 MG tabletIndications: Anxiety TAKE 1 TABLET BY MOUTH TWICE DAILY IN THE MORNING AND IN THE EVENING NEEDED FOR ANXIETY. 56 tablet 025 Active acetaminophen (Tylenol 8 Hour) 650 MG ER tabletIndications: Severe dental caries,Non-restora ble tooth Take 1 tablet (650 mg) by mouth every 8 (eight) hours if needed for mild pain. Do not crush, chew, or split. 21 tablet 025 Active Ventolin HFA 108 (90 Base) MCG/ACT inhalerIndications :Mild persistent asthma without complication INHALE 2 PUFFS EVERY 6 HOURS NEEDED FOR WHEEZING 18 g 1 025 Active zolpidem (Ambien) 10 MG tabletIndications: Anxiety TAKE 1 TABLET BY MOUTH AT BEDTIME NEEDED FOR SLEEP 7 tablet 025 Active Ventolin HFA 108 (90 Base) MCG/ACT inhalerIndications :Mild persistent asthma without complication INHALE 2 PUFFS BY MOUTH EVERY 6 HOURS NEEDED FOR WHEEZING 18 g 1 025 09/20 Discontinued zolpidem (Ambien) 10 MG tabletIndications: Anxiety TAKE 1 TABLET BY MOUTH AT BEDTIME NEEDED FOR SLEEP 7 tablet 025 09/30 Discontinued( Reorder (will not trigger notification to Pharmacy)) traMADol (Ultram) 50 MG tabletIndications: Chronic pain of both knees TAKE 1 TABLET BY MOUTH EVERY 6 HOURS NEEDED FOR SEVERE PAIN 112 tablet 025 10/03 amoxicillin (Amoxil) 500 MG capsuleIndications :Severe dental caries,Non-restora ble tooth Take 1 capsule (500 mg) by mouth every 8 (eight) hours for 7 days. 21 capsule 025 09/13 Active Problems Patient Care Coordination No te Formatting of this note migh t be different from the original. C3/CM Celia Brown RN Problem Noted Date Diagnosed Date Severe dental caries 09/06/2024 Non-restorable tooth 09/06/2024 Fibromyalgia 08/22/2023 Prediabetes 06/22/2023 Bilateral knee pain [...] migraine 07/29/2022 Chronic gastroesophageal reflux disease 07/29/19 Moderate persistent asthma 07/29/2022 Asthma-COPD overlap syndrome [...] ovarian cyst 11/24/2022 023 Heart palpitations 11/24/2022 Persistent dyspnea after COVID-19 11/24/2022 11/24/2022 Positive blood culture 11/24/202211/24 Well woman exam 11/24/2022 11/24/2022 Retropharyngeal abscess 08/18/2022 06/0 06/2022 Assessment & Plan (08/18/2022 3:02 PM EST): Pt is here as a walk in. She was initially seen at [facility] on 08/12 for neck swelling, neck pain, sore throat, and mild sob x [address] scan of soft tissue of neck showed tissue swelling at C2-C4 which possibly reflected retropharyngeal cellulitis. Therefore pt. Was transferred to [facility] for an ENT consult. ENT determined no [...] up with PCP Acute otitis media 06/03/2022 Exacerbation of intermittent asthma 06/03/2022 07/29/2022 Hypertensive disorder 06/03/20222022 Sore throat 06/03/2022 07/29/2022 Obstructive sleep apnea syndrome 03/30/2016 07/29/2022 Asthma 09/15/2015 07/29/2022 Obesity (BMI 30-39.9) 09/15/20152022 Gastroesophageal reflux disease 09/15/2015 07/29/2022 Uterine leiomyoma 09/15/2015 07/29/2022 Limb swelling 04/02/2015 11/24/2022 Elevated fasting glucose 04/02/201508/2022 Migraine 04/02/2015 07/29/2022 Encounters * This document contains information received from the source organization and may not represent a complete record from that organization. Date Type Department Care Team Description 09/30/2024 Refill [facility] [address] [place], [place] [phone] Ava Yap DO Anxiety 09/20/2024 Refill [facility] [address] [place] [address] Ava Yap DO Mild persistent asthma without complication 09/17/2024 Telephone [facility] [address] [place] [address] Anayeli Clayton, DEVI Plan of Care 09/13/2024 Telephone [facility] [address] [place] [phone] Ava Yap DO Results 09/10/2024 Telephone [facility] [address] [place] [phone] Ava Yap DO 09/06/2024 2:30 PM EDT Office Visit [facility] [address] [place] [phone] Donnie Palencia DDS Severe dental caries (Primary Dx); Non-restorable tooth 09/06/2024 Population Health Risk Score [facility] () Department [address] [place] [phone] Provider, Population Health Generic 09/05/2024 Telephone [facility] [address] [place] [phone] Ava Yap DO Paperwork/Forms; Prior Authorization ( [place] Request: Lorazepam 2 MG) 09/04/2024 Refill [facility] [address] [place], [place] [phone] Teetee Matthews MD Chronic pain of both knees; Anxiety 09/02/2024 Refill [facility] [address] [place] [phone] Teetee Matthews MD Anxiety; Chronic pain of both knees 08/30/2024 11:15 AM EST Office Visit [address] [address] Ava Yap DO Essential hypertension (Primary Dx); Other hyperlipidemia; Prediabetes; Fatty liver; Coronary arteriosclerosis; Bipolar disease, chronic (CMS/HCC); Moderate persistent asthma without complication; Obstructive sleep apnea; Chronic migraine; Chronic gastroesophageal reflux disease; Chronic pain of both knees; Pain of right thumb; Healthcare maintenance; Encounter for screening for malignant neoplasm of colon; Screening for colon cancer 08/29/2024 10:00 AM EST Clinical Support [address] [address] Denisha Cross RN Chronic knee pain, unspecified laterality (Primary Dx) 08/29/[address] [place] [address] Denisha Cross, RN EMPLOYMENT TRAINING SPECIALIST Renewal today 08/29/2024 Travel 08/19/2024 Refill [facility] [address] [place] [address] Ava Yap, DO Chronic gastroesophageal reflux disease 08/15/2024 Refill [facility] [address] [place] [address] Ava Yap, Chronic pain of both knees 08/02/2024 Refill [facility] [address] [place] [address] Ava Yap, Anxiety 07/19/2024 Refill [facility] [address] [place] [address] Ava Yap, Chronic pain of both knees 07/17/2024 Refill [facility] [address] [place] [phone] Denisha Cross RN Anxiety 07/16/2024 11:00 AM EST Clinical Support [facility] [address] [place] [phone] Denisha Cross, customer service associate knee pain, unspecified laterality (Primary Dx) 07/16/2024 Travel 07/16/[address] [address] Ava Yap DO Appointment Request; Call Back Request 07/16/[address] [address] Denisha Cross, RN Recommend EMPLOYMENT TRAINING SPECIALIST Tier 2 from Last 3 Months Immunizations Name Administration [...] Sign Reading Time Taken Comments Blood Pressure 140/72 09/06/2024 3:16 PM EDT Pulse 104 08/30/2024 12:02 PM [...] Description 11/28/2024 1:30 PM EDT Clinical Support [address] [address] Denisha Cross, RN Health Maintenance Due Date [...] or Tdap) 12/09/2024 12/09/2014 Mammogram 05/04/2025 05/04/2023, 1006/2021, 12/11/2020, Additional history exists SDOH Screening 08/30/2025 08/30/2024 Diabetes: Hemoglobin A1C 09/05/2025 025, 12/13/2022, 03/14/2022, Additional history exists Tobacco Screening 09/06/2025 09/06/2024 Lipid Panel 09/05/2029 09/05/2024, 11/0 02/2023, 12/13/2022, [...] Procedure Name Priority Date/Time Associated Diagnosis Comments CASE PRESENTATION, DETAILED AND EXTENSIVE TREATMENT PLANNING Routine 09/06/2024 2:30 PM EDT 21 EXTRACTION, ERUPTED TOOTH REQ REMOVAL OF BONE AND/OR SECTIONING OF TOOTH Routine 09/06/2024 2:30 PM EDT XR HAND 3+ VIEWS RIGHT Routine 09/05/2024 12:05 PM EDT Pain of right thumb ALPHA FETOPROTEIN, TUMOR MARKER Routine 09/05/2024 11:10 AM EDT Essential hypertension [...] of colon Screening for colon cancer HEPATITIS A ANTIBODY, TOTAL Routine 09/05/2024 11:10 AM EDT Essential [...] neoplasm of colon Screening for colon cancer RPR (MONITOR) W/REFL TITER Routine 09/05/2024 11:10 AM EDT Essential hypertension [...] AM EST Chronic knee pain, unspecified laterality BI MAMMOGRAM SCREENING TOMOSYNTHESIS BILATERAL Routine 05/04/2023 [...] 12:48 PM EDT ? [facility] ?[address] [facility] ?[place] [address] ?XRay Report ? Signed ? Patient: Asif Muhammad,Ximena ?MR#: ?? [id number] ? : 1970 ?Acct:[id number] ? Age/Sex: 53 / F ?ADM Date: 09/05/24 ? Loc: HO.HHCL ? Attending Dr: Ava Yap DO ? Ordering Physician: Ava Yap DO ?? Date of Service: 09/05/24 ?? Procedure(s): XR hand RT min 3V ?? Accession Number(s): [id number] ? cc: Ava Yap DO ? EXAMINATION: [...] DD/ 1205 ? TD/TT: 09/05/24 1223 ? Scientific Programmer: ? Procedure Note Donsachininterpreter, Image - 09/05/[address] [address] XRay Report Signed Patient: Kody Xiong#: [id number] : 1970Acct:[id number] Age/Sex: 53 / FADM Date: 09/05/24 Loc: .[facility] Attending Dr: Ava Yap DO Ordering Physician: Ava Yap DO Date of Service: 09/05/24 Procedure(s): XR hand RT min 3V Accession Number(s): [id number] cc: Ava Yap DO EXAMINATION: XR HAND, [...] 09/05/24 1246 DD/ 1205 TD/TT: 09/05/24 1223 Scientific Programmer: Ava Yap DO IMG XR PROCEDURES Edited Res ult - Final * (ABNORMAL) Vitamin D, 25-Hydroxy, Total, Immunoassay (09/05/2024 11:10 AM EDT) Vitamin D 25-OH Total 25.6(L) >30 ng/mL [facility] Comment: Health Based Reference Values*< 20 ??ng/mL ??Xfsdoleew77-31 ng/mL ??Insufficient> 30 ??ng/mL ??Sufficient*Rafi NUÑEZ. N [...] DO LAB BLOOD ORDERABLES Final R esult [facility] [address] [place] [phone] [phone] * Albumin, Random Urine W/Creatinine (09/05/2024 11:10 AM EDT) Creatinine, Urine 63.20 mg/dL [facility] Microalbumin Urine 16.0 mg/L H [facility] Microalbum Creatinine Ratio Ur 25.3 <30 ug/mg cr [facility] Comment:Albumin/Creatinine R atio Reference Ranges: Normal: < 30 ug/mg creatinine Microalbuminuria: 30 - 300 ug/mg creatinineClinical Albuminuria: > 300 ug/mg creatinine Urine (Urine, Random) 09/05/2024 11:10 AM EDT 09/05/2024 1:03 PM EDT us Ava Yap DO LAB URINE ORDERABLES Final R esult Performing Organization Address City/[facility] Co de Phone Number [facility] [address] [place] [phone] * Hepatitis C Antibody with Reflex to HCV, RNA, Quantitative, Real-Time PCR (09/05/2024 11:10 AM EDT) Hepatitis C Antibody Nonreactive Nonreactive [facility] Comment:Antibodies to HCV no t detected; does not exclude early acuteHCV infection. Blood Venous blood specimen / Unknown 09/05/2024 11:10 AM EDT 09/05/2024 1:25 PM EDT us Ava Yap DO LAB BLOOD ORDERABLES Final R esult Performing Organization Address [facility] Co de Phone Number [facility] [address] [place] [phone] * Hepatitis A Antibody, Total (09/05/2024 11:10 AM EDT) Hepatitis A Antibody IgG REACTIVE Nonreactive [facility] Comment:The presence of IgG anti-HAV implies past HAV infection(recent or distant) or vaccination against HAV. Blood Venous blood specimen / Unknown 09/05/2024 11:10 AM EDT 09/05/2024 1:25 PM EDT us Ava Yap DO LAB BLOOD ORDERABLES Final R esult Performing Organization Address [facility] Co de Phone Number [facility] [address] [place] [phone] * Alpha-Fetoprotein, Tumor Marker (09/05/2024 11:10 AM EDT) [facility] Alpha Fetoprotein 1.6 ng/mL [facility] Comment:Reference Range: <6. 1The use of AFP as a tumor marker in females is not recommended.This test was performed using the Jaimee Coulterchemiluminescent method. Values obtained fromdifferent assay methods cannot be usedinterchangeably. AFP levels, regardless ofvalue, should not be interpreted as absoluteevidence of the presence or absence of disease.THIS TEST WAS PERFORMED AT:[facility] [place] [phone] BAKER MD Blood Venous blood specimen / Unknown 09/05/2024 11:10 AM EDT 09/05/2024 1:25 PM EDT Ava Yap DO LAB BLOOD ORDERABLES Final R esult [facility] [address] [place] [phone] * Chlamydia/N. Gonorrhoeae RNA, TMA, Urogenitial (09/05/2024 11:10 AM EDT) [facility] CT PCR NOT DETECTED Not Detect. [facility] Comment:A not detected test result does [...] psychologicalconsequences. NG PCR NOT DETECTED Not Detect. [facility] Comment:A not detected test result does [...] AM EDT 09/05/2024 1:03 PM EDT Narrative [facility] - 09/05/2024 3:50 PM EDT Urine Ava Yap DO LAB MICROBIOLOGY - GENERAL O RDERABLES Final Result Performing Organization Address City/[facility]/ZIP Co de Phone Number [facility] [address] [place] [phone] * Hepatitis B surface antigen, EIA (09/05/2024 11:10 AM EDT) Hepatitis B Surface Ag Negative Negative [facility] Blood Venous blood specimen / Unknown 09/05/2024 11:10 AM EDT 09/05/2024 1:25 PM EDT Ava Yap DO LAB BLOOD ORDERABLES Final R esult Performing Organization Address City/[facility]/ZIP Co de Phone Number [facility] [address] [place] [phone] * Hepatitis B Core Antibody, Total (09/05/2024 11:10 AM EDT) Hepatitis B Core Antibody Nonreactive Nonreactive [facility] Blood Venous blood specimen / Unknown 09/05/2024 11:10 AM EDT 09/05/2024 1:25 PM EDT Ava Fracisco DO LAB BLOOD ORDERABLES Final R esult Performing Organization Address [facility] Co de Phone Number [facility] [address] [place] [phone] * RPR (Monitor) with Reflex to??Titer (09/05/2024 11:10 AM EDT) RPR (Monitor) w/Refl Titer NON-REACTI VE NON-REACT JORGE [facility] Comment:THIS TEST WAS PERFOR MED AT:[facility] [place] [phone] BAKER MD Rapid Plasma Reagin Ab Titer TNP [facility] Blood Venous blood specimen / Unknown 09/05/2024 11:10 AM EDT 09/05/2024 1:25 PM EDT Ava Yap DO LAB BLOOD ORDERABLES Final R esult Performing Organization Address [facility] Co de Phone Number [facility] [address] [place] [phone] * HIV-1/2 Antigen and Antibodies, Fourth Generation, with Reflexes (09/05/2024 11:10 AM EDT) HIV AB/AG Nonreactive Nonreactive [facility] Comment:HIV-1 p24 Ag and/or HIV-1/HIV-2 Ab not detected.A test result that is nonreactive does not exclude thepossibility of exposure to or infection with HIV-1 and/orHIV-2. Nonreactive results in this assay for individualswith prior exposure to HIV-1 and/or HIV-2 may be due toantigen and antibody levels that are below the limit ofdetection of this assay.The [employer] Spine HIV Ag/Ab Combo assay result andsupplemental assay results should be interpreted inconjunction with the patient's clinical presentation,history and other laboratory results. If the results areinconsistent with clinical evidence, additional testing issuggested to confirm the result. Blood Venous blood specimen / Unknown 09/05/2024 11:10 AM EDT 09/05/2024 1:25 PM EDT Ava Hernandeztawanda LAB BLOOD ORDERABLES Final R esult Performing Organization Address [facility] Co de Phone Number [facility] [address] [place] [phone] * Hepatitis B Surface Antibody, Qualitative (09/05/2024 11:10 AM EDT) Pathologist [facility] ~Hepatitis B Surface Antibody NONREACTIVE Nonreactive [facility] Comment:Nonreactive: < 8.00 mIU/mL Blood Venous blood specimen / Unknown 09/05/2024 11:10 AM EDT 09/05/2024 1:25 PM EDT Ava Fracisco FRANCO LAB BLOOD ORDERABLES Final R esult Performing Organization Address [facility] de Phone Number [facility] [address] [place] [phone] * CBC (09/05/2024 11:10 AM EDT) Pathologist [facility] White Blood Count 6.4 4.8 - 10.8 X10*3/uL [facility] Red Blood Count 4.43 4.20 - 5.50 X10*6/uL [facility] Hemoglobin 13.6 12.0 - 16.0 g/dl [facility] Hematocrit 39.6 37.0 - 47.0 % [facility] Mean Corpuscular Volume 89.4 80.0 - 98.0 fL [facility] Mean Corpuscular Hemoglobin 30.7 27.0 - 33.0 pg [facility] Mean Corpuscular HGB Conc 34.3 31.0 - 35.0 g/dl [facility] Red Cell Distribution Width 13.2 11.0 - 16.0 % [facility] Platelet Count 268 160 - 400 X10*3/uL [facility] Mean Platelet Volume 11.2 9.4 - 12.3 fL [facility] NRBC Pct Auto 0.0 0.0 - 0.2 /100WBC [facility] NRBC Abs Auto 0.000 0.0 - 0.012 X10*3/uL [facility] Blood Venous blood specimen / Unknown 09/05/2024 11:10 AM EDT 09/05/2024 1:22 PM EDT Ava Fracisco LAB BLOOD ORDERABLES Final R esult [facility] [address] [place] [phone] * TSH (09/05/2024 11:10 AM EDT) Thyroid Stimulating Hormone 2.68 0.32 - 4.0 uIU/mL [facility] Comment:Note: A sustained TS H level above 2.5 uIU/mL may warrant further investigation. TSH 3rd Generation ([facility]) Blood Venous blood specimen / Unknown 09/05/2024 11:10 AM EDT 09/05/2024 1:25 PM EDT Ava Fracisco LAB BLOOD ORDERABLES Final R esult [facility] [address] [place] [phone] * T4, Free (09/05/2024 11:10 AM EDT) Free T4 (Free Thyroxine) 1.05 0.71 - 1.85 ng/dL [facility] Blood Venous blood specimen / Unknown 09/05/2024 11:10 AM EDT 09/05/2024 1:25 PM EDT Ava Fracisco DO LAB BLOOD ORDERABLES Final R esult [facility] [address] [place] [phone] * Hemoglobin A1c (09/05/2024 11:10 AM EDT) Hemoglobin A1c 6.0 <6.0 % [facility] Comment:Hemoglobin A1C Refer ence Range Adults: 4.8 - 6.0 % Non diabetic: < 6.0 % Goal: < 7.0 %Additional Action Suggested: > 8.0 %Note: Hemoglobin A1c results are invalid for patients with abnormal amounts of HbF. Blood transfusions may impact the HbA1c concentration in the patient sample. Estimated Average Glucose 126 mg/dL [facility] Comment:eAG = Estimated ave rage glucose which is %A1C expressed asaverage glucose, using the formula of the P4M-WuwymopEywmfjp Glucose study (ADAG), Diabetes Care, Vol.31,#8,Jan. 2007 Blood Venous blood specimen / Unknown 09/05/2024 11:10 AM EDT 09/05/2024 1:22 PM EDT Ava Yap DO LAB BLOOD ORDERABLES Final R esult [facility] [address] [place] [phone] * (ABNORMAL) Hepatic Function Panel (09/05/2024 11:10 AM EDT) Bilirubin, Total 0.4 0.0 - 1.0 mg/dL [facility] Bilirubin, Direct 0.1 0.0 - 0.5 mg/dL [facility] Aspartate Amino Transferase 26 5 - 31 U/L [facility] Alanine Aminotransferase 33(H) 0 - 31 U/L [facility] Total Protein 8.0 6.5 - 8.0 g/dL [facility] Albumin Level 4.5 3.5 - 5.0 g/dL [facility] Alkaline Phosphatase 84 39 - 117 U/L [facility] Blood Venous blood specimen / Unknown 09/05/2024 11:10 AM EDT 09/05/2024 1:25 PM EDT Ava Yap LAB BLOOD ORDERABLES Final R esult Performing Organization Address [facility] Co de Phone Number [facility] [address] [place] [phone] * (ABNORMAL) Lipid Panel, Standard (09/05/2024 11:10 AM EDT) Triglycerides 344(H) <150 mg/dL [facility] Comment:Desirable Triglyceri de: less than 150 mg/dLBorderline High Triglyceride 150-199 mg/dLHigh Triglyceride: 200-499 mg/dLVery High Triglyceride: greater than or equal to 5OO mg/dL Cholesterol 273(H) <200 mg/dL [facility] Comment:Desirable Cholestero l: less than 200 mg/dLBorderline High Cholesterol: 200-239 mg/dLHigh Cholesterol: greater than 239 mg/dL LDL Cholesterol Calculated 161(H) <100 mg/dL [facility] Comment:Desirable LDL: less than 100 mg/dLNear Optimal/Above Optimal LDL: 110- 129 mg/dLBorderline High LDL: 130-159 mg/dLHigh LDL: 160-189 mg/dLVery High LDL: greater than or equal to 190 mg/dL HDL Cholesterol 44 >40 mg/dL [facility] Comment:Desirable HDL: great er than 40 mg/dL Note: This HDL assay may give artificially low results in patients with liver disease. Blood Venous blood specimen / Unknown 09/05/2024 11:10 AM EDT 09/05/2024 1:25 PM EDT Ava Yap DO LAB BLOOD ORDERABLES Final R esult Performing Organization Address City/[facility]/ZIP Co de Phone Number [facility] [address] [place] [phone] * Basic Metabolic Panel (09/05/2024 11:10 AM EDT) Sodium 140 135 - 145 mmol/L [facility] Potassium 3.9 3.3 - 5.1 mmol/L [facility] Chloride 108 96 - 108 mmol/L [facility] Carbon Dioxide 24 22 - 29 mmol/L [facility] Anion Gap 12 12 - 20 [facility] Urea Nitrogen (BUN) 12 9 - 16 mg/dL [facility] Creatinine, Serum 0.74 0.5 - 1.4 mg/dL [facility] Estimated Glomerular Filt Rate >60 [facility] Comment:Chronic Kidney Disea se: Estimated GFR < 60 mL/min/1.57j2Aixeyz Kidney Disease: Estimated GFR < 15 mL/min/1.73m2 Glucose 107 60 - 115 mg/dL [facility] Calcium 9.7 8.4 - 10.2 mg/dL [facility] Blood Venous blood specimen / Unknown 09/05/2024 11:10 AM EDT 09/05/2024 1:25 PM EDT us Ava Yap DO LAB BLOOD ORDERABLES Final R esult [facility] [address] [place] [phone] * POCT ELISEO-14 Urine Drug Screen (08/29/2024 10:14 AM EST) Only the most recent of2 resultswithin the time period is included. Benzodiazepines Screen, Urine Positive Urine Urine specimen obtained by clean catch procedure / Unknown 08/29/2024 10:14 AM EST Denisha Schroeder RN - 08/29/2024 10:14 AM EST UTOX cup Lot#[id number] Exp. 02/12/26 Internal Pass Control us Ava Jurcsak DO POINT OF CARE TEST ENTER/HILARIO T ORDERABLES Final Result * BI Mammogram Screening Tomosynthesis Bilateral (05/04/2023 1:45 PM EST) Anatomical Region Laterality Modality Breast Bilateral Mammography 05/04/2023 1:45 PM EST Narrative 05/22/2023 6:55 AM EST ? [facility] ? [address] ?[place] [address] ? Mammography Report ? Signed ? Patient: Asif Muhammad,Ximena ?MR#: ?? [id number] ? : 1970 ?Acct:[id number] ? Age/Sex: 52 / F ?ADM Date: 05/04/23 ? Loc: HO.MAMMO ? Attending Dr: Ava Yap DO ? Ordering Physician: Ava Yap DO ?Results: 1N ?? egative ? Date of Service: 05/04/23 ?Follow Up: 1 Year From Orig ?? inal Mammogram ? Procedure(s): MM tomosynthesis screening BI ?? Accession Number(s): [id number] ? cc: Ava Yap DO ? EXAMINATION: [...] Ana Buchanan MD in OV> ? 05/22/23 06 ? DD/ 1345 ? TD/TT: ? Scientific Programmer: ? Procedure Note Frances, Serenity - 05/22/2023 [facility] [address] [place] [address] Mammography Report Signed Patient: Kody Xiong#: [id number] : 1970Acct:[id number] Age/Sex: 52 / FADM Date: 05/04/23 Loc: HO.MAMMO Attending Dr: Ava Yap DO Ordering Physician: Ava Yapults: 1N egative Date of Service: 05/04/23Follow Up: 1 Year From Orig inal Mammogram Procedure(s): MM tomosynthesis screening BI Accession Number(s): [id number] cc: Ava Yap DO EXAMINATION: MM SCREENING [...] in OV> 05/22/23 0651 DD/ 1345 TD/TT: Scientific Programmer: Ava Yap DO IMG BI PROCEDURES Final Resu lt * HPV E6/E7 RFLX ELMER 16 18/45 (08/23/2019 11:30 AM EST) ADDITIONAL TESTING Not indicated () [facility] Comment: Test Performed by [facility], [facility], [address] [place] [address] Jorge López M.D., Ph.D., Director of Laboratories , [place] [id number] HPV 16 RNA Test not performed [facility] HPV 18/45 RNA Test not performed [facility] HPV mRNA E6/E7 Not Detected NOT DETECTED [facility] Comment: This test was performed using the APTIMA(R) HPV Assay ([employer] This assay detects E6/E7 viral messenger RNA (mRNA) from 14 high-risk HPV types (16,18,31,33,35,39,45,51, 52,56,58,59,66,68). For additional information please refer to: http://education.TheraCell/faq/YDU174k6 (This link is being provided for informational/ educational purposes only.) The analytical performance characteristics of this assay have been determined by [facility] [place], [place]. The modifications have not been cleared or approved by the FDA. This assay has been validated pursuant to the CLIA regulations and is used for clinical purposes. Please note: ??Effective 03/07/2016, HPV testing will be performed using [employer]'s APTIMA test which targets mRNA. Detecting mRNA instead of DNA, as in older methods, offers significant improvements in specificity. 08/23/2019 11:3 0 AM EST Ava Yap DO HISTORICAL/NON ORDERABLE LAB S Final Result [facility] Formerly [facility], [facility] Anywhere [address] from Last 3 Months or Most Recently Relevant to Health Maintenance Insurance [address] [address] C[facility] STAND ADULT Care Teams Linux Support Engineer Relationship Specialty Start Date End Date Ava Yap DO [address] [place] [address] PCP - General Family Medicine 03/28/11 Avelina Hodges Dredge RunnerBarrel Straightener 04/21/23
[2024-10-09 11:05] LABS: Cholesterol 230 mg/dL (<200); HDL Cholesterol 45 mg/dL (>40); LDL Cholesterol Calculated 139 mg/dL (<100); Triglycerides 234 mg/dL (<150)
== END 2024-10-09 09:07 | disposition home or self-care (01) ==
LOC: HO.LAB 09:06
PROVIDERS: PCP Family Medicine; Visit Provider Internal Medicine Cardiovascular Disease
DX: I25.10 Atherosclerotic heart disease of native coronary artery without angina pectoris (principal); E78.5 Hyperlipidemia, unspecified
CPT/HCPCS: 36415; 80061

== ENCOUNTER 2024-10-31 08:33 | Outpatient (REF) | payer MEDICAID, SELFPAY ==
--- OUTSIDE RECORDS SUMMARY | 2024-10-31 08:47 | XMS_ITS | Encounter Summary ---
Author Organization [employer] Address 75 [facility] 7[place] [address] Care Team Providers Care Heavy Cleaner Name Role Phone Ava Yap DO Primary Care Provider + [phone] Reason for Visit * Reason Comments Med Refill Encounter Details Date Type Department Care Team ([facility] st Contact Info) Description 07/04/2023 Refill [facility] MED[facility]INE [address] [place] [address] Ava Yap DO 230 [place] [address] Anxiety; Chronic bilateral low back pain, unspecified [...] Description 11/28/2024 1:30 PM EDT Clinical Support [facility] [address] [place] [address] Denisha Cross, DEVI documented as of this encounter Visit Diagnoses Diagnosis Anxiety Anxiety state, unspecified Chronic bilateral low back pain, unspecified whether sciatica present documented in this encounter Additional Health Concerns Assessment Noted Time PHQ-9 Depression Total Score: 5 06/22/20 23 10:59 AM EST documented as of this encounter Care Teams Heavy Cleaner Relationship Specialty Start Date End Date Ava Yap DO [address] [place] [address] PCP - General Family Medicine 03/28/11 Avelina Hodges Automobile SalesmanTerminal Operator 04/21/23 documented as of this encounter
--- OUTSIDE RECORDS SUMMARY | 2024-10-31 08:47 | XMS_ITS | Encounter Summary ---
Author Organization [employer] Address [address] [place] [address] Care Team Providers Care Tobacco Cutter Name Role Phone Ava Yap DO Primary Care Provider + [phone] Reason for Visit * Reason Comments Med Refill Encounter Details Date Type Department Care Team (Late Contact Info) Description 11/14/2022 Refill [facility] MEDICINE [address] [place], [place] [phone] Ava Yap DO [address] [place] [address] [phone] Anxiety Social History Tobacco Use Types Packs/Day [...] EDT Clinical Support [facility]INE [address] [place], [place] [phone] Denisha Cross RN documented as of this encounter Visit Diagnoses Diagnosis Anxiety Anxiety state, unspecified documented in this encounter Additional Health Concerns Assessment Noted Time PHQ-9 Depression Total Score: 0 07/27/19 23 11:46 AM EST documented as of this encounter Care Teams Tobacco Cutter Relationship Specialty Start Date End Date Ava Yap DO 230 [place] [address] PCP - General Family Medicine 03/28/11 Avelina Hodges Picture CopyistTape Coater 04/21/23 documented as of this encounter
--- OUTSIDE RECORDS SUMMARY | 2024-10-31 08:47 | XMS_ITS | Encounter Summary ---
Author Organization [employer] Address 75 [facility] 7 [place] [address] Care Team Providers Care Rewinder Operator Helper Name Role Phone Ava Yap DO Primary Care Provider + [phone] Reason for Visit * Reason Comments Med Refill Encounter Details Date Type Department Care Team ([facility] st Contact Info) Description 05/03/2024 Refill [facility] MEDICINE [address] [place] [address] Ava Yap DO 230 [place] [address] Anxiety; Chronic pain of both knees Social [...] Description 11/28/2024 1:30 PM EDT Clinical Support [facility] [address] [place] [address] Denisha Cross RN documented as of this encounter Visit Diagnoses Diagnosis Anxiety Anxiety state, unspecified Chronic pain of both knees documented in this encounter Additional Health Concerns Assessment Noted Time PHQ-9 Depression Total Score: 5 06/22/20 23 10:59 AM EST documented as of this encounter Care Teams Rewinder Operator Helper Relationship Specialty Start Date End Date Ava Yap DO 230 [place] [address] PCP - General Family Medicine 03/28/11 Avelina Hodges Director OperatingWeather Algorithm Scientist 04/21/23 documented as of this encounter
--- OUTSIDE RECORDS SUMMARY | 2024-10-31 08:47 | XMS_ITS | Encounter Summary ---
Author Organization [employer] Address 75 [facility] 7[place] [address] Care Team Providers Care Marketing Operations Manager Name Role Phone Ava Yap DO Primary Care Provider + [phone] Reason for Visit * Reason Comments Med Refill Encounter Details Date Type Department Care Team ([facility] st Contact Info) Description 07/05/[address] [facility] MEDICINE [address] [place] [address] Ava Yap DO 230 [place] [address] Chronic bilateral low back pain, unspecified whether [...] PM EDT Clinical Support [facility]INE [address] [place] [address] Denisha Cross, DEVI documented as of this encounter Visit Diagnoses Diagnosis Chronic bilateral low back pain, unspecified whether sciatica present Anxiety Anxiety state, unspecified documented in this encounter Additional Health Concerns Assessment Noted Time PHQ-9 Depression Total Score: 5 06/22/20 23 10:59 AM EST documented as of this encounter Care Teams Marketing Operations Manager Relationship Specialty Start Date End Date Ava Yap DO 230 [place] [address] PCP - General Family Medicine 03/28/11 Avelina Hodges Campaign AssistantConsulting Utility Forester 04/21/23 documented as of this encounter
--- OUTSIDE RECORDS SUMMARY | 2024-10-31 08:47 | XMS_ITS | Encounter Summary ---
Author Organization [employer] Address 75 [facility] 7 [place] [address] Care Team Providers Care Phone Banker Name Role Phone Ava Yap DO Primary Care Provider + [phone] Reason for Visit * Reason Comments Med Refill Encounter Details Date Type Department Care Team ([facility] st Contact Info) Description 05/03/2024 Refill [facility] [address] [place] [address] Ava Yap DO 230 [place] [address] Anxiety; Chronic pain of both knees Social [...] 1:30 PM EDT Clinical Support [facility] [address] [place] [address] Denisha Cross RN documented as of this encounter Visit Diagnoses Diagnosis Anxiety Anxiety state, unspecified Chronic pain of both knees documented in this encounter Additional Health Concerns Assessment Noted Time PHQ-9 Depression Total Score: 5 06/22/20 23 10:59 AM EST documented as of this encounter Care Teams Phone Banker Relationship Specialty Start Date End Date Ava Yap DO 230 [place] [address] PCP - General Family Medicine 03/28/11 Avelina Hodges Pilot Control OperatorProcess Consultant 04/21/23 documented as of this encounter
--- OUTSIDE RECORDS SUMMARY | 2024-10-31 08:47 | XMS_ITS | Encounter Summary ---
Author Organization [employer] Address [address] [place] [address] Care Team Providers Care Aircraft Magneto Mechanic Name Role Phone Ava Yap DO Primary Care Provider + [phone] Encounter Details Date Type Department Care Team ([facility] Contact Info) Description 07/19/2022 Telephone [facility] MEDICINE [address] [place] [phone] Ava Yap DO [address] [place] [address] Social History Tobacco Use Types Packs/Day Years [...] Encounters Date Type Department Care Team ([facility] Contact Info) Description 11/28/2024 1:30 PM EDT Clinical Support [address] [address] Denisha Cross RN documented as of this encounter Visit Diagnoses Not on filedocumented in this encounter Care Teams Aircraft Magneto Mechanic Relationship Specialty Start Date End Date Ava Yap DO [address] [place] [address] PCP - General Family Medicine 03/28/11 Avelina Hodges Cable Tool OperatorArch Support Technician 04/21/23 documented as of this encounter
--- OUTSIDE RECORDS SUMMARY | 2024-10-31 08:47 | XMS_ITS | Encounter Summary ---
Author Organization [employer] Address 75 [facility] 7 [place] [address] Care Team Providers Care Restoration Ecologist Name Role Phone FraciscoAva Primary Care Provider + [phone] Reason for Visit * Reason Comments Med Refill Encounter Details Date Type Department Care Team ([facility] st Contact Info) Description 08/04/2023 Refill [facility] MED[facility]INE 230 [place] [address] Vesna Sanabria MD [address] [place] [address] Chronic bilateral low back pain, unspecified whether [...] Description 11/28/2024 1:30 PM EDT Clinical Support [facility] MED[facility]INE 230 [place] [address] Denisha Cross, DEVI documented as of this encounter Visit Diagnoses Diagnosis Chronic bilateral low back pain, unspecified whether sciatica present documented in this encounter Additional Health Concerns Assessment Noted Time PHQ-9 Depression Total Score: 5 06/22/20 23 10:59 AM EST documented as of this encounter Care Teams Restoration Ecologist Relationship Specialty Start Date End Date Ava Yap DO [address] [place] [address] PCP - General Family Medicine 03/28/11 Avelina Hodges Shipping TechnicianChildren'S Service Supervisor 04/21/23 documented as of this encounter
--- OUTSIDE RECORDS SUMMARY | 2024-10-31 08:47 | XMS_ITS | Encounter Summary ---
Author Organization [employer] Address 75 [facility] 7[place] [address] Care Team Providers Care Sound Effects Manager Name Role Phone Ava Yap DO Primary Care Provider + [phone] Encounter Details Date Type Department [facility] Team ([facility] Contact Info) Description 07/18/2022 Orders Only [facility] [address] [place] [address] Ava Holt LPN Social History Tobacco Use [...] Upcoming Encounters Date Type Department Care Team ([facility] Contact Info) Description 11/28/2024 1:30 PM EDT Clinical Support [facility] MEDICINE [address] [place] [address] Denisha Cross RN documented as of this [...] AM EST) Influenza A PCR NEGATIVE Negative [facility] Influenza B PCR NEGATIVE Negative [facility] Resp Syncy Virus RNA Qual PCR NEGATIVE Negative [facility] SARS COV2 PCR NEGATIVE Negative [facility] SARS/Flu/RSV Note See Note [facility] Comment:All test results mus t be [...] use by authorized laboratories.Testing performed on the [employer] GeneXpert utilizingreal-time RT-PCR.All SARS CoV2 and positive influenza A/B results arereported to [facility]. 08/12/2022 10:3 2 AM EST 08/12/2022 10:37 AM EST us [facility] Exter nal Provider LAB MICROBIOLOGY - GENERAL ORDERABLES Final Result [facility] [address] [place] [phone] * Sed Rate by Modified Claudiaren (08/12/2022 10:32 AM EST) Erythrocyte Sedimentation Rate 16 0 - 20 MM/HR [facility] Comment:Patients with polycy themia and many hemoglobin abnormalitiesmay have depressed sed rates whereas patients with anemiamay have elevated sed rates. 08/12/2022 10:3 2 AM EST 08/12/2022 10:37 AM EST [facility] External Provider LAB BLO OD ORDERABLES Final Result Performing Organization Address City/[facility]/ZIP Co de Phone Number [facility] [address] [place] [address] [phone] * C-reactive Protein (08/12/2022 10:32 AM EST) Pathologist [facility] C Reactive Protein 0.41 < or = 0.50 mg/dL [facility] 08/12/2022 10:3 2 AM EST 08/12/2022 10:37 AM EST [facility] External Provider LAB BLO OD ORDERABLES Final Result Performing Organization Address [facility]/ZIP Co de Phone Number [facility] [address] [place] [address] [phone] * (ABNORMAL) Basic Metabolic Panel (08/12/2022 10:32 AM EST) Sodium 142 135 - 145 mmol/L [facility] Potassium 4.3 3.3 - 5.1 mmol/L [facility] Chloride 109(H) 96 - 108 mmol/L [facility] Carbon Dioxide 23 22 - 29 mmol/L [facility] Anion Gap 14 12 - 20 [facility] Urea Nitrogen (BUN) 11 9 - 16 mg/dL [facility] Creatinine, Serum 0.76 0.5 - 1.4 mg/dL [facility] Creatinine Clr Calc Pharmacy 92.0 [facility] Comment:Provided height and weight: 149.86 cm,99.79 kg.eGFR (calculated from the MDRD study equation) and eCrCl(calculated from the Cockcroft-Gault equation) are based ondifferent parameters and may not yield comparable results.If eCrCl result is absurd, please check patient'sheight/weight. Estimated Glomerular Filt Rate >60 [facility] Comment:NOTE: For -Am erican individuals, multiply the result by 1.210.Chronic Kidney Disease: Estimated GFR < 60 mL/min/1.59z0Hpkmqd Kidney Disease: Estimated GFR < 15 mL/min/1.73m2 Glucose 113 60 - 115 mg/dL [facility] Calcium 9.7 8.4 - 10.2 mg/dL [facility] 08/12/2022 10:3 2 AM EST 08/12/2022 10:37 AM EST us [facility] External Provider LAB BLO OD ORDERABLES Final Result [facility] [address] [place] [address] [phone] * (ABNORMAL) CBC auto differential (08/12/2022 10:32 AM EST) White Blood Count 5.9 4.8 - 10.8 X10*3/uL [facility] Red Blood Count 4.44 4.20 - 5.50 X10*6/uL [facility] Hemoglobin 13.4 12.0 - 16.0 g/dl [facility] Hematocrit 40.5 37.0 - 47.0 % [facility] Mean Corpuscular Volume 91.2 80.0 - 98.0 fL [facility] Mean Corpuscular Hemoglobin 30.2 27.0 - 33.0 pg [facility] Mean Corpuscular HGB Conc 33.1 31.0 - 35.0 g/dl [facility] Red Cell Distribution Width 13.2 11.0 - 16.0 % [facility] Platelet Count 252 160 - 400 X10*3/uL [facility] Mean Platelet Volume 10.7 9.4 - 12.3 fL [facility] Neutrophils Percent Auto 49.0 45 - 73 % [facility] Imm Gran Pct Auto 0.2 0.0 - 0.4 % [facility] Lymphocytes Percent Auto 40.9(H) 20 - 40 % [facility] Monocytes Percent Auto 8.8 2 - 11 % [facility] Eosinophils Percent Auto 0.8 0 - 4 % [facility] Basophils Percent Auto 0.3 0 - 2 % [facility] NRBC Pct Auto 0.0 0.0 - 0.2 /100WBC [facility] Neutrophils Absolute Auto 2.9 2.0 - 8.3 x10*3/uL [facility] Imm Gran Abs Auto 0.01 0.00 - 0.03 X10*3/uL [facility] Lymphocytes Absolute Auto 2.4 1.2 - 4.9 X10*3/uL [facility] Monocytes Absolute Auto 0.5 0.1 - 1.2 X10*3/uL [facility] Eosinophils Absolute Auto 0.1 0.0 - 0.4 X10*3/uL [facility] Basophils Absolute Auto 0.0 0.0 - 0.2 X10*3/uL [facility] NRBC Abs Auto 0.000 0.0 - 0.012 X10*3/uL [facility] 08/12/2022 10:3 2 AM EST 08/12/2022 10:37 AM EST us [facility] External Provider LAB BLO OD ORDERABLES Final Result [facility] [address] [place], [place] [phone] * Strep A Nucleic Acid (08/12/2022 9:10 AM EST) [employer]NOW SERIAL# [id number] [facility] Strep A Nucleic Acid Negative Negative [facility] Comment:All test results mus t be correlated with clinical findings.This test has not been evaluated for monitoring treatment ofinfection.Additional follow-up testing using the culture method isrequired if the result is negative and clinical symptomspersist, or in the event of an acute rheumatic feveroutbreak. 08/12/2022 9:10 AM EST 08/12/2022 9:12 AM EST us [facility] Exter nal Provider LAB MICROBIOLOGY - GENERAL ORDERABLES Final Result [facility] [address] [place] [address] [phone] * CT Chest w/o Contrast (08/09/2022 9:07 AM EST) Anatomical Region Laterality Modality Body, Chest Computed Tomogra phy 08/09/2022 9:07 AM EST Narrative 08/13/2022 11:33 AM EST ? [facility] ?[address] ?[place] [address] ? CT Scan Report ? Signed ? Patient: Ximena Xiong ?MR#: ?? [id number] ? : 1970 ?Acct:[id number] ? Age/Sex: 51 / F ?ADM Date: 08/09/22 ? Loc: HO.CT ? Attending Dr: Ava Yap DO ? Ordering Physician: Ava Yap DO ?? Date of Service: 08/09/22 ?? Procedure(s): CT chest wo IV con ?? Accession Number(s): [id number] ? cc: Ava Yap DO ? EXAMINATION: [...] 1131 ? DD/ 0907 ? TD/TT: ? Cryptologic Support Specialist: SS ? Procedure Note Frances, Image - 08/13/[address] [address] [place] Scan Report Signed Patient: Kody Xiong#: [id number] : 1970Acct:[id number] Age/Sex: 51 / FADM Date: 08/09/22 Loc: HO.CT Attending Dr: Ava Yap DO Ordering Physician: Ava Yap DO Date of Service: 08/09/22 Procedure(s): CT chest wo IV con Accession Number(s): [id number] cc: Ava Yap DO EXAMINATION: CT CHEST [...] in OV> 08/13/22 1131 DD/ 0907 TD/TT: Cryptologic Support Specialist: MEDARDO [facility] External Provider IMG CT PROCEDURES Edited Result - Final documented in this encounter Visit Diagnoses Not on filedocumented in this encounter Care Teams Sound Effects Manager Relationship Specialty Start Date End Date Ava Yap DO [address] [place] [address] PCP - General Family Medicine 03/28/11 Avelina Hodges Toll LinemanMedical Records Technician 04/21/23 documented as of this encounter
--- OUTSIDE RECORDS SUMMARY | 2024-10-31 08:47 | XMS_ITS | Encounter Summary ---
Author Organization [employer] Address 75 [facility] 7 [place] [address] Care Team Providers Care Sustainable Products Marketing Manager Name Role Phone Fracisco Ava Primary Care Provider + [phone] Reason for Visit * Reason Comments Med Refill Encounter Details Date Type Department Care Team ([facility] st Contact Info) Description 08/04/2023 Refill [facility] [address] [place] [address] Svetlana Mccollum MD [address] [place] [address] Anxiety Social History Tobacco Use Types Packs/Day [...] Description 11/28/2024 1:30 PM EDT Clinical Support [facility] [address] [place] [address] Denisha Cross RN documented as of this encounter Visit Diagnoses Diagnosis Anxiety Anxiety state, unspecified documented in this encounter Additional Health Concerns Assessment Noted Time PHQ-9 Depression Total Score: 5 06/22/20 23 10:59 AM EST documented as of this encounter Care Teams Sustainable Products Marketing Manager Relationship Specialty Start Date End Date Ava Yap DO [address] [place] [address] PCP - General Family Medicine 03/28/11 Avelina Hodges Carpet LayerCleaner Signs 04/21/23 documented as of this encounter
--- OUTSIDE RECORDS SUMMARY | 2024-10-31 08:47 | XMS_ITS | Encounter Summary ---
Author Organization [employer] Address 75 [facility] 7 [place] [address] Care Team Providers Care Line Decorator Name Role Phone Fracisco Ava Primary Care Provider + [phone] Reason for Visit * Reason Comments Med Refill Encounter Details Date Type Department Care Team ([facility] Contact Info) Description 02/28/2024 Refill [facility] [address] [place] [address] Johan Kraft MD [address] [place] [address] Social History Tobacco Use Types Packs/Day Years [...] Description 11/28/2024 1:30 PM EDT Clinical Support [facility] [address] [place] [address] Denisha Cross RN documented as of this encounter Visit Diagnoses Not on filedocumented in this encounter Additional Health Concerns Assessment Noted Time PHQ-9 Depression Total Score: 5 06/22/20 23 10:59 AM EST documented as of this encounter Care Teams Line Decorator Relationship Specialty Start Date End Date Ava Yap DO [address] [place] [address] PCP - General Family Medicine 03/28/11 Avelina Hodges Office ExecutiveManager Managed Care 04/21/23 documented as of this encounter
--- OUTSIDE RECORDS SUMMARY | 2024-10-31 08:47 | XMS_ITS | Clinical Summary ---
Author Organization [facility] Address [address] [place] [address] Care Team Providers Care Border Machine Operator Name Role Phone Pcp, No Primary Care [...] Zoster (Shingles) Vaccine (1 of 2) 12/05/2021 COVID-19 Vaccine (3 - 2023- season) 2024, 10/03/2020 Influenza Vaccine 01/24/2025 Insurance [facility] Care Teams Border Machine Operator Relationship Specialty Start Date End Date Pcp, No PCP - General General Medicine 08/12/22
--- OUTSIDE RECORDS SUMMARY | 2024-10-31 08:47 | XMS_ITS | Encounter Summary ---
Author Organization [employer] Address [address] [facility] [address], [place] [address] Care Team Providers Care Upstairs Maid Name Role Phone Ava Yap DO Primary Care Provider + [phone] Reason for Visit * Reason Comments Med Refill Encounter Details Date Type Department Care Team ([facility] st Contact Info) Description 03/22/2024 Refill [facility] MEDICINE [address] [place] [address] Ava Yap DO [address] [place] [address] Chronic low back pain, unspecified back pain [...] Description 11/28/2024 1:30 PM EDT Clinical Support [facility] MEDICINE [address] [place] [address] Denisha Cross, DEVI documented as of this encounter Visit Diagnoses Diagnosis Chronic low back pain, unspecified back pain laterality, unspecified whether sciatica present documented in this encounter Additional Health Concerns Assessment Noted Time PHQ-9 Depression Total Score: 5 06/22/20 23 10:59 AM EST documented as of this encounter Care Teams Upstairs Maid Relationship Specialty Start Date End Date Ava Yap DO [address] [place] [address] PCP - General Family Medicine 03/28/11 Avelina Hodges High Heel BuilderCounseling Specialist 04/21/23 documented as of this encounter
--- OUTSIDE RECORDS SUMMARY | 2024-10-31 08:47 | XMS_ITS | Encounter Summary ---
Author Organization [employer] Address [address] [facility] 7[place], [place] [address] Care Team Providers Care Engine Assembler Name Role Phone Ava Yap DO Primary Care Provider + [phone] Reason for Visit * Reason Comments Med Refill Encounter Details Date Type Department Care Team ([facility] st Contact Info) Description 12/14/2023 Refill [facility] MEDICINE [address] [place] [address] Ava Yap DO [address] [place] [address] Anxiety Social History Tobacco Use Types Packs/Day [...] Description 11/28/2024 1:30 PM EDT Clinical Support [facility] MEDICINE [address] [place] [id number] Denisha Cross RN documented as of this encounter Visit Diagnoses Diagnosis Anxiety Anxiety state, unspecified documented in this encounter Additional Health Concerns Assessment Noted Time PHQ-9 Depression Total Score: 5 06/22/20 23 10:59 AM EST documented as of this encounter Care Teams Engine Assembler Relationship Specialty Start Date End Date Ava Yap DO [address] [place] [id number] PCP - General Family Medicine 03/28/11 Avelina Hodges Gas Welding Equipment MechanicResource Specialist 04/21/23 documented as of this encounter
--- OUTSIDE RECORDS SUMMARY | 2024-10-31 08:47 | XMS_ITS | Encounter Summary ---
Author Organization [employer] Address [address] [facility] [address] [place] [address] Care Team Providers Care Leather Patcher Name Role Phone Ava Yap DO Primary Care Provider + [phone] Reason for Visit * Reason Onset Date Comments Med Refill 10/28/2024 Encounter Details Date Type Department Care Team (Late st Contact Info) Description 10/28/2024 Refill [facility] MED & PEDS [address] [place] [address] Ava Yap DO [address] [place] [address] Chronic pain of both knees Social History [...] your housing situation today? I have prieto lon 08/30/[address] you li [...] as of this encounter Miscellaneous Notes * Addendum Note - Monica Goddard RN - 10/28/2024 2:18 PM EDTAddended by: MONICA GODDARD on: 10/28/2024 02:18 PM Modules accepted: Orders * Telephone Encounter - Monica Godadrd RN - 10/28/2024 2:15 PM EDT [facility] reviewed, pt. Last picked up 18 day supply 10/03/24, rx due and pended * Telephone Encounter - Betty Villalobos LPN - 10/28/2024 1:37 PM EDT Received request on tramadol 50mg documented in this encounter Plan of Treatment Upcoming Encounters Date Type Department Care Team (Late st Contact Info) Description 11/28/2024 1:30 PM EDT Clinical Support [address] [address] Denisha Cross, RN documented as of this encounter Visit Diagnoses Diagnosis Chronic pain of both knees documented in this encounter Additional Health Concerns Assessment Noted Time PHQ-9 Depression Total Score: 5 06/22/20 23 10:59 AM EST documented as of this encounter Care Teams Leather Patcher Relationship Specialty Start Date End Date Ava Yap DO [address] [place] [address] PCP - General Family Medicine 03/28/11 Avelina Hodges [employer] Spanish TeacherHosiery Operator 04/21/23 documented as of this encounter
--- OUTSIDE RECORDS SUMMARY | 2024-10-31 08:47 | XMS_ITS | Encounter Summary ---
Author Organization [employer] Address [address] [facility] [address] [address] Care Team Providers Care Manager Documentation Name Role Phone Ava Yap DO Primary Care Provider + [phone] Reason for Visit * Reason Comments Med Refill Encounter Details Date Type Department Care Team ([facility] st Contact Info) Description 01/29/2024 Refill [facility] MEDICINE [address] [place] [address] Ava Yap DO [address] [place] [address] Anxiety; Chronic bilateral low back pain, unspecified [...] Support [facility] MEDICINE [address] [place] [address] Denisha Cross, DEVI documented as of this encounter Visit Diagnoses Diagnosis Anxiety Anxiety state, unspecified Chronic bilateral low back pain, unspecified whether sciatica present documented in this encounter Additional Health Concerns Assessment Noted Time PHQ-9 Depression Total Score: 5 06/22/20 23 10:59 AM EST documented as of this encounter Care Teams Manager Documentation Relationship Specialty Start Date End Date Ava Yap DO [address] [place] [address] PCP - General Family Medicine 03/28/11 Avelina Hodges Stave HewerFood And Beverage Assistant Manager 04/21/23 documented as of this encounter
--- OUTSIDE RECORDS SUMMARY | 2024-10-31 08:47 | XMS_ITS | Encounter Summary ---
Author Organization [employer] Address [address] [facility] 7[place] [address] Care Team Providers Care Legal Writing Professor Name Role Phone Ava Yap DO Primary Care Provider + [phone] Reason for Visit * Reason Onset Date Comments Prior Authorization 10/16/2024 Encounter Details Date Type Department Care Team ([facility] st Contact Info) Description 10/16/2024 Telephone [facility] MED & PEDS [address] [place] [address] Ava Yap DO [address] [place] [address] Prior Authorization Social History Tobacco Use Types Packs/Day Years [...] encounter Miscellaneous Notes * Telephone Encounter - Tamar Henriquez - 10/16/2024 12:19 PM EDT Script for LORazepam (Ativan) 2 MG tablet requires a prior authorization. documented in this encounter Plan of Treatment Upcoming Encounters Date Type Department Care Team (Late st Contact Info) Description 11/28/2024 1:30 PM EDT Clinical Support [facility] MEDICINE [address] [place] [address] Denisha Cross RN documented as of this encounter Visit Diagnoses Not on filedocumented in this encounter Additional Health Concerns Assessment Noted Time PHQ-9 Depression Total Score: 5 06/22/20 10:59 AM EST documented as of this encounter Care Teams Legal Writing Professor Relationship Specialty Start Date End Date Ava Yap DO [address] [place] [address] PCP - General Family Medicine 03/28/11 Avelina Hodges Forestry Biology SpecialistFlagger 04/21/23 documented as of this encounter
--- OUTSIDE RECORDS SUMMARY | 2024-10-31 08:48 | XMS_ITS | Encounter Summary ---
Author Organization [employer] Address [address] [facility] 7[place] [address] Care Team Providers Care Photographer News Name Role Phone FraciscoAva Primary Care Provider + [phone] Reason for Visit * Reason Comments Med Refill Encounter Details Date Type Department Care Team ([facility] st Contact Info) Description 04/26/2023 Refill [facility] MEDICINE [address] [place] [address] Vesna Sanabria MD [address] [place] [address] Anxiety Social History Tobacco Use Types Packs/Day [...] Description 11/28/2024 1:30 PM EDT Clinical Support [facility] MEDICINE [address] [place] [address] Denisha Cross RN documented as of this encounter Visit Diagnoses Diagnosis Anxiety Anxiety state, unspecified documented in this encounter Additional Health Concerns Assessment Noted Time PHQ-9 Depression Total Score: 21 023 10:23 AM EDT documented as of this encounter Care Teams Photographer News Relationship Specialty Start Date End Date Ava Yap DO [address] [place] [address] PCP - General Family Medicine 03/28/11 Avelina Hodges Behavioral Health RnHydro Technician 04/21/23 documented as of this encounter
--- OUTSIDE RECORDS SUMMARY | 2024-10-31 08:48 | XMS_ITS | Clinical Summary ---
Author Organization [employer] Address [address] [facility] 7 [place] [address] Care Team Providers Care Paper Rewinder Operator Name Role Phone FraciscoCeciAva Primary Care Provider [phone] Allergies Active Allergy Reactions Criticality Noted Date [...] daily Active albuterol (2.5 MG/3ML) 0.083% nebulizer solutionIndications :Mild persistent asthma without complication INHALE 1 AMPULE USING A NEBULIZER EVERY 6 HOURS NEEDED FOR WHEEZING 90 mL 1 023 Active naloxone (Narcan) 4 mg/0.1 mL nasal sprayIndications:Ch ronic pain syndrome FOR SUSPECTED OPIOID OVERDOSE. SPRAY 0.1mL IN ONE NOSTRIL. REPEAT IN ALTERNATE NOSTRIL 2-3 MINUTES IF NEEDED. SEEK MEDICAL ATTENTION IMMEDIATELY EVEN IF PATIENT RESPONDS. 2 each 3 024 Active Multiple Vitamins-Iron (Tab-A-Colton/Iron) tablet TAKE 1 TABLET BY MOUTH EVERY DAY WITH FOOD 90 tablet 3 024 Active gabapentin (Neurontin) 400 MG capsuleIndications: Chronic low back pain, unspecified back pain laterality, unspecified whether sciatica present TAKE 1 CAPSULE BY MOUTH TWICE DAILY IN THE MORNING AND AT NOON AND TAKE 2 CAPSULES AT BEDTIME 120 capsule 5 024 Active cetirizine (ZyrTEC) 10 MG tabletIndications:S easonal allergic rhinitis, unspecified trigger Take 1 tablet (10 mg) by mouth Once per day. 90 tablet 2 024 Active montelukast (Singulair) 10 MG tablet Take 1 tablet (10 mg) by mouth at bedtime. 90 tablet 024 Active DULoxetine (Cymbalta) [address] capsuleIndications: Posttraumatic stress disorder TAKE 1 CAPSULE BY MOUTH EVERY DAY 30 capsule 024 Active lisinopril 5 MG tablet TAKE 1 TABLET BY MOUTH EVERY DAY 90 tablet 1 025 Active docusate sodium (Colace) 100 MG capsule TAKE 1 CAPSULE BY MOUTH TWICE DAILY NEEDED 180 capsule 1 025 Active pantoprazole (ProtoNix) 40 MG EC tabletIndications:C hronic gastroesophageal reflux disease TAKE 1 TABLET BY MOUTH TWICE DAILY BEFORE MEALS 180 tablet 1 025 Active Diclofenac Sodium 1 % gel Apply 2 g topically if needed in the morning, at noon, in the evening, and at bedtime (pain). 150 g 3 025 Active LORazepam (Ativan) 2 MG tabletIndications:A nxiety TAKE 1 TABLET BY MOUTH TWICE DAILY IN THE MORNING AND IN THE EVENING NEEDED FOR ANXIETY. 56 tablet 025 Active acetaminophen (Tylenol 8 Hour) 650 MG ER tabletIndications:S evere dental caries,Non-restorab le tooth Take 1 tablet (650 mg) by mouth every 8 (eight) hours if needed for mild pain. Do not crush, chew, or split. 21 tablet 025 Active Ventolin HFA 108 (90 Base) MCG/ACT inhalerIndications: Mild persistent asthma without complication INHALE 2 PUFFS EVERY 6 HOURS NEEDED FOR WHEEZING 18 g 1 025 Active zolpidem (Ambien) 10 MG tabletIndications:A nxiety TAKE 1 TABLET BY MOUTH AT BEDTIME NEEDED FOR SLEEP 7 tablet 025 Active LORazepam (Ativan) 2 MG tablet Take 1 tablet (2 mg) by mouth if needed in the morning and at bedtime for anxiety for up to 28 days. 56 tablet 025 2024 Active traMADol (Ultram) 50 MG tabletIndications:C hronic pain of both knees Take 1 tablet (50 mg) by mouth every 6 (six) hours if needed for severe pain. 112 tablet 025 Active traMADol (Ultram) 50 MG tabletIndications:C hronic pain of both knees TAKE 1 TABLET BY MOUTH EVERY 6 HOURS NEEDED FOR SEVERE PAIN 112 tablet 025 2024 Active Problems Patient Care Coordination No te [...] walk in. She was initially seen at [facility] ER on 08/12 for neck swelling, neck pain, sore throat, and mild sob x [address] scan of soft tissue of neck showed tissue swelling at C2-C4 which possibly reflected retropharyngeal cellulitis. Therefore pt. Was transferred to [facility] for an ENT consult. ENT determined no [...] organization. Date Type Department Care Team Description 10/28/[address] [facility] CHC MED & PEDS [address] [place] [address] Ava Yap DO Chronic pain of both knees 10/25/[address] [facility] MEDICINE [address] [place] [address] Ava Yap DO Nurse Triage 10/22/2024 Travel 10/21/[address] [facility] MEDICINE [address], [place] [phone] Ava Yap DO Prior Auth DME 10/18/[address] [facility] [address] [place], [place] [phone] Ava Yap DO Anxiety 10/16/[address] [facility] PEDS [address] [place] [address] vAa Yap DO Prior Authorization 10/09/2024 Orders Only GENERIC EXTERNAL DATA DEPARTMENT Provider, Generic External Data 09/30/2024 Refill [facility] MED & PEDS [address] [place] [address] Ava Yap DO Anxiety 09/20/[address] [facility] [address] [place] [address] Ava Yap DO Mild persistent asthma without complication 09/17/[address] [facility] MEDICINE [address] [place] [phone] Anayeli Clayton, DEVI Plan of Care 09/13/[address] [facility] MEDICINE [address] [place] [phone] Ava Yap DO Results 09/10/2024 [facility] Health Information Management [address] [place] [address] Ava Yap DO 09/06/2024 2:30 PM EDT Office Visit [facility] ADULT DENTAL [address] [place] [phone] Donnie Palencia DDS Severe dental caries (Primary Dx); Non-restorable tooth 09/06/2024 Population Health Risk Score [facility] Department [address] [place] [phone] Provider, Population Health Generic 09/05/[address] [facility] MEDICINE [address] [place] [phone] Ava Yap DO Paperwork/Forms; Prior Authorization ( [place] Request: Lorazepam 2 MG) 09/04/[address] [facility] MED [facility] PEDS [address] [place], [place] [phone] Teetee Matthews MD Chronic pain of both knees; Anxiety 09/02/[address] [facility] MED[facility] [address] [place] [address] Teetee Matthews MD Anxiety; Chronic pain of both knees 08/30/2024 11:15 AM EST Office Visit [address] [phone] Ava Yap DO Essential hypertension (Primary Dx); Other hyperlipidemia; Prediabetes; Fatty liver; Coronary arteriosclerosis; Bipolar disease, chronic (CMS/HCC); Moderate persistent asthma without complication; Obstructive sleep apnea; Chronic migraine; Chronic gastroesophageal reflux disease; Chronic pain of both knees; Pain of right thumb; Healthcare maintenance; Encounter for screening for malignant neoplasm of colon; Screening for colon cancer 08/29/2024 10:00 AM EST Clinical Support [address] [address] Denisha Cross RN Chronic knee pain, unspecified laterality (Primary Dx) 08/29/[address] [address] Denisha Cross RN [employer] Renewal today 08/29/2024 Travel 08/19/2024 Refill [facility] [address] [place] [address] Ava Yap DO Chronic gastroesophageal reflux disease 08/15/2024 Refill [facility] PEDS [address] [place] [address] Ava Yap DO Chronic pain of both knees from Last 3 Months Immunizations Name Administration Dates Next Due Hep A, Adult 09/11/2018,03/14/2018 Hep B, adult 09/11/2018,06/27/2018,03/14/2018 [facility] SARS-CoV-2 Vaccination 10/03/2020 Pfizer Covid-19 Vaccine 12+ [...] Description 11/28/2024 1:30 PM EDT Clinical Support [facility] [address] [place] [address] Denisha Cross, RN Health Maintenance Due Date [...] Vaccines (1 of 2) 12/05/2021 COVID-19 Vaccine ( season) 2024 06/15/2021, 10/03/2020 Influenza Vaccine (#1) 2024 Depression Screening 06/22/2024 06/22/2023, 06/22/20 23 Cervical Cancer Screening 08/23/2024 HPV/Cotest 08/23/2024 08/23/2019, 07/22/2016 DTaP/Tdap/Td Vaccines (2 - Td or Tdap) 12/09/2024 12/09/2014 Mammogram 05/04/2025 05/04/2023, 03/27, 12/11/2020, Additional history exists SDOH Screening 08/30/2025 08/30/2024 Diabetes: Hemoglobin A1C 09/05/2025 025, 12/13/2022, 03/14/2022, Additional history exists Tobacco Screening 09/06/2025 09/06/2024 Lipid Panel 10/09/2029 10/09/2024, 08/24, 05/04/2023, Additional history exists RSV Patients and Patients [...] Procedure Name Priority Date/Time Associated Diagnosis Comments LIPID PANEL, STANDARD Routine 10/09/2024 9:22 AM EDT CASE PRESENTATION, DETAILED AND EXTENSIVE TREATMENT PLANNING [...] PM EST ZZZ HISTORICAL HPV E6/E7 RFLX EMLER 16 18/45 Routine 08/23/2019 11:30 AM EST from Last 3 Months or Most Recently Relevant to Health Maintenance Results * (ABNORMAL) Lipid Panel, Standard (10/09/2024 9:22 AM EDT) Only the most recent of2 resultswithin the time period is included. Triglycerides 234(H) <150 mg/dL [facility] Comment:Desirable Triglyceri de: less than 150 mg/dLBorderline High Triglyceride 150-199 mg/dLHigh Triglyceride: 200-499 mg/dLVery High Triglyceride: greater than or equal to 5OO mg/dL Cholesterol 230(H) <200 mg/dL [facility] Comment:Desirable Cholestero l: less than 200 mg/dLBorderline High Cholesterol: 200-239 mg/dLHigh Cholesterol: greater than 239 mg/dL LDL Cholesterol Calculated 139(H) <100 mg/dL [facility] Comment:Desirable LDL: less than 100 mg/dLNear Optimal/Above Optimal LDL: 110- 129 mg/dLBorderline High LDL: 130-159 mg/dLHigh LDL: 160-189 mg/dLVery High LDL: greater than or equal to 190 mg/dL HDL Cholesterol 45 >40 mg/dL [facility] Comment:Desirable HDL: great er than 40 mg/dL Note: This HDL assay may give artificially low results in patients with liver disease. 10/09/2024 9:22 AM EDT 10/09/2024 9:22 AM EDT us Generic External Data Provider LAB BLOOD ORDERAB LES Final Result [facility] [address] [place] [phone] * XR Hand 3+ Views Right (09/05/2024 12:05 PM EDT) Anatomical Region Laterality Modality Upper Extremities, Hand Right Radiogra phic Imaging 09/05/2024 12:0 5 PM EDT Narrative 09/05/2024 12:48 PM EDT ? [facility] ?[address] ?[place] [address] ?XRay Report ? Signed ? Patient: Asif Muhammad,Ximena ?MR#: ?? [id number] ? : 1970 ?Acct:[id number] ? Age/Sex: 53 / F ?ADM Date: 09/05/24 ? Loc: HO.HHCL ? Attending Dr: Ava Yap DO ? Ordering Physician: Ava Yap DO ?? Date of Service: 09/05/24 ?? Procedure(s): XR hand RT min 3V ?? Accession Number(s): [id number] ? cc: Ava Yap DO ? EXAMINATION: [...] Barba MD ??09/05/2024 12:46 PM EDT RP ?? Workstation: [id number] ? Dictated By: ?Nicolas Barba MD ? Signed By: ?<Electronically signed by Nicolas Barba MD in OV> ?09/05/24 1246 ? DD/ 1205 ? TD/TT: 09/05/24 1223 ? Logistics Support: ? Procedure Note Serenity Daniels - 09/05/[address] [address] XRay Report Signed Patient: Luzma XiongJacey#: [id number] : 1970Acct:[id number] Age/Sex: 53 / FADM Date: 09/05/24 Loc: HO.HHCL Attending Dr: Ava Yap DO Ordering Physician: Ava Yap DO Date of Service: 09/05/24 Procedure(s): XR hand RT min 3V Accession Number(s): [id number] cc: Ava Yap DO EXAMINATION: XR HAND, [...] Barba MD 09/05/2024 12:46 PM EDT RP Workstation: [id number] Dictated By: Nicolas Barba MD Signed By: <Electronically signed by Nicolas Barba MD in OV> 09/05/24 1246 DD/ 1205 TD/TT: 09/05/24 1223 Logistics Support: Ava Yap DO IMG XR PROCEDURES Edited Res ult - Final * (ABNORMAL) Vitamin D, 25-Hydroxy, Total, Immunoassay (09/05/2024 11:10 AM EDT) Vitamin D 25-OH Total 25.6(L) >30 ng/mL [facility] Comment: Health Based Reference Values*< 20 ??ng/mL ??Qsrzubqua23-38 ng/mL ??Insufficient> 30 ??ng/mL ??Sufficient*Rafi NUÑEZ. N [...] ORDERABLES Final R esult Performing Organization Address [facility] Co de Phone Number [facility] [address] [place] [phone] * Albumin, Random Urine W/Creatinine (09/05/2024 11:10 AM EDT) Creatinine, Urine 63.20 mg/dL [facility] Microalbumin Urine 16.0 mg/L [facility] Microalbum Creatinine Ratio Ur 25.3 <30 ug/mg cr [facility] Comment:Albumin/Creatinine R atio Reference Ranges: Normal: < 30 ug/mg creatinine Microalbuminuria: 30 - 300 ug/mg creatinineClinical Albuminuria: > 300 ug/mg creatinine Urine (Urine, Random) 09/05/2024 11:10 AM EDT 09/05/2024 1:03 PM EDT us Ava Yap DO LAB URINE ORDERABLES Final R esult Performing Organization Address [facility] Co de Phone Number [facility] [address] [place] [phone] * Hepatitis C Antibody with Reflex to HCV, RNA, Quantitative, Real-Time PCR (09/05/2024 11:10 AM EDT) Hepatitis C Antibody Nonreactive Nonreactive [facility] Comment:Antibodies to HCV no t detected; does not exclude early acuteHCV infection. Blood Venous blood specimen / Unknown 09/05/2024 11:10 AM EDT 09/05/2024 1:25 PM EDT [facility] BLOOD ORDERABLES Final R esult Performing Organization Address [facility]/ZIP Co de Phone Number [facility] [address] [place] [phone] * Hepatitis A Antibody, Total (09/05/2024 11:10 AM EDT) Hepatitis A Antibody IgG REACTIVE Nonreactive [facility] Comment:The presence of IgG anti-HAV implies past HAV infection(recent or distant) or vaccination against HAV. Blood Venous blood specimen / Unknown 09/05/2024 11:10 AM EDT 09/05/2024 1:25 PM EDT [facility] BLOOD ORDERABLES Final R esult Performing Organization Address [facility] Co de Phone Number [facility] [address] [place] [phone] * Alpha-Fetoprotein, Tumor Marker (09/05/2024 11:10 AM EDT) Alpha Fetoprotein 1.6 ng/mL [facility] Comment:Reference Range: <6. 1The use of AFP as a tumor marker in females is not recommended.This test was performed using the Jaimee Coulterchemiluminescent method. Values obtained fromdifferent assay methods cannot be usedinterchangeably. AFP levels, regardless ofvalue, should not be interpreted as absoluteevidence of the presence or absence of disease.THIS TEST WAS PERFORMED AT:[facility] [place] [phone] BAKER MD Blood Venous blood specimen / Unknown 09/05/2024 11:10 AM EDT 09/05/2024 1:25 PM EDT us Ava Hernandeztawanda DO LAB BLOOD ORDERABLES Final R esult [facility] [address] [place], [place] [phone] * Chlamydia/N. Gonorrhoeae RNA, TMA, Urogenitial (09/05/2024 11:10 AM EDT) CT PCR NOT DETECTED Not Detect. [facility] Comment:A not detected test result does [...] psychologicalconsequences. NG PCR NOT DETECTED Not Detect. [facility] Comment:A not detected test result does [...] AM EDT 09/05/2024 1:03 PM EDT Narrative [facility] - 09/05/2024 3:50 PM EDT Urine Ava Fracisco DO LAB MICROBIOLOGY - GENERAL O RDERABLES Final Result Performing Organization Address [facility]/ZIP Co de Phone Number [facility] [address] [place] [phone] * Hepatitis B surface antigen, EIA (09/05/2024 11:10 AM EDT) Hepatitis B Surface Ag Negative Negative [facility] Blood Venous blood specimen / Unknown 09/05/2024 11:10 AM EDT 09/05/2024 1:25 PM EDT Ava Fracisco FRANCO LAB BLOOD ORDERABLES Final R esult Performing Organization Address [facility] Co de Phone Number [facility] [address] [place] [phone] * Hepatitis B Core Antibody, Total (09/05/2024 11:10 AM EDT) Hepatitis B Core Antibody Nonreactive Nonreactive [facility] Blood Venous blood specimen / Unknown 09/05/2024 11:10 AM EDT 09/05/2024 1:25 PM EDT Ava Fracisco FRANCO LAB BLOOD ORDERABLES Final R esult Performing Organization Address [facility] Co de Phone Number [facility] [address] [place] [phone] * RPR (Monitor) with Reflex to??Titer (09/05/2024 11:10 AM EDT) RPR (Monitor) w/Refl Titer NON-REACTI VE NON-REACT JORGE [facility] Comment:THIS TEST WAS PERFOR MED AT:[facility] [place] [phone] BAKER MD Rapid Plasma Reagin Ab Titer TNP [facility] Blood Venous blood specimen / Unknown 09/05/2024 11:10 AM EDT 09/05/2024 1:25 PM EDT Ava Yap DO LAB BLOOD ORDERABLES Final R esult Performing Organization Address City/[facility]/ZIP Co de Phone Number [facility] [address] [place] [phone] * HIV-1/2 Antigen and Antibodies, Fourth Generation, with Reflexes (09/05/2024 11:10 AM EDT) Pathologist [facility] HIV AB/AG Nonreactive Nonreactive [facility] Comment:HIV-1 p24 Ag and/or HIV-1/HIV-2 Ab not detected.A test result that is nonreactive does not exclude thepossibility of exposure to or infection with HIV-1 and/orHIV-2. Nonreactive results in this assay for individualswith prior exposure to HIV-1 and/or HIV-2 may be due toantigen and antibody levels that are below the limit ofdetection of this assay.The [employer] HIV Ag/Ab Combo assay result andsupplemental assay results should be interpreted inconjunction with the patient's clinical presentation,history and other laboratory results. If the results areinconsistent with clinical evidence, additional testing issuggested to confirm the result. Blood Venous blood specimen / Unknown 09/05/2024 11:10 AM EDT 09/05/2024 1:25 PM EDT Ava Yap DO LAB BLOOD ORDERABLES Final R esult Performing Organization Address City/[facility]/ZIP Co de Phone Number [facility] [address] [place] [phone] [phone] * Hepatitis B Surface Antibody, Qualitative (09/05/2024 11:10 AM EDT) ~Hepatitis B Surface Antibody NONREACTIVE Nonreactive [facility] Comment:Nonreactive: < 8.00 mIU/mL Blood Venous blood specimen / Unknown 09/05/2024 11:10 AM EDT 09/05/2024 1:25 PM EDT us Ava Yap DO LAB BLOOD ORDERABLES Final R esult Performing Organization Address City/[facility]/ZIP Co de Phone Number [facility] [address] [place] [phone] * CBC (09/05/2024 11:10 AM EDT) White Blood Count 6.4 4.8 - 10.8 X10*3/uL [facility] Red Blood Count 4.43 4.20 - 5.50 X10*6/uL [facility] Hemoglobin 13.6 12.0 - 16.0 g/dl [facility] Hematocrit 39.6 37.0 - 47.0 % [facility] Mean Corpuscular Volume 89.4 80.0 - 98.0 fL [facility] Mean Corpuscular Hemoglobin 30.7 27.0 - 33.0 pg [facility] Mean Corpuscular HGB Conc 34.3 31.0 - 35.0 g/dl [facility] Red Cell Distribution Width 13.2 11.0 - 16.0 % [facility] Platelet Count 268 160 - 400 X10*3/uL [facility] Mean Platelet Volume 11.2 9.4 - 12.3 fL [facility] NRBC Pct Auto 0.0 0.0 - 0.2 /100WBC [facility] NRBC Abs Auto 0.000 0.0 - 0.012 X10*3/uL [facility] Blood Venous blood specimen / Unknown 09/05/2024 11:10 AM EDT 09/05/2024 1:22 PM EDT Ava Yap DO LAB BLOOD ORDERABLES Final R esult [facility] [address] [place] [phone] * TSH (09/05/2024 11:10 AM EDT) Thyroid Stimulating Hormone 2.68 0.32 - 4.0 uIU/mL [facility] Comment:Note: A sustained TS H level above 2.5 uIU/mL may warrant further investigation. TSH 3rd Generation ([facility]) Blood Venous blood specimen / Unknown 09/05/2024 11:10 AM EDT 09/05/2024 1:25 PM EDT Ava Yap DO LAB BLOOD ORDERABLES Final R esult Performing Organization Address [facility]/ZIP Co de Phone Number [facility] [address] [place] [phone] * T4, Free (09/05/2024 11:10 AM EDT) Free T4 (Free Thyroxine) 1.05 0.71 - 1.85 ng/dL [facility] Blood Venous blood specimen / Unknown 09/05/2024 11:10 AM EDT 09/05/2024 1:25 PM EDT Ava Yap DO LAB BLOOD ORDERABLES Final R esult Performing Organization Address City/[facility]/ZIP Co de Phone Number [facility] [address] [place] [phone] * Hemoglobin A1c (09/05/2024 11:10 AM EDT) Hemoglobin A1c 6.0 <6.0 % [facility] Comment:Hemoglobin A1C Refer ence Range Adults: 4.8 - 6.0 % Non diabetic: < 6.0 % Goal: < 7.0 %Additional Action Suggested: > 8.0 %Note: Hemoglobin A1c results are invalid for patients with abnormal amounts of HbF. Blood transfusions may impact the HbA1c concentration in the patient sample. Estimated Average Glucose 126 mg/dL [facility] Comment:eAG = Estimated ave rage glucose which is %A1C expressed asaverage glucose, using the formula of the S4B-XvziqbnMbnruwe Glucose study (ADAG), Diabetes Care, Vol.31,#8,Jan. 2007 Blood Venous blood specimen / Unknown 09/05/2024 11:10 AM EDT 09/05/2024 1:22 PM EDT Ava Yap DO LAB BLOOD ORDERABLES Final R esult Performing Organization Address City/[facility]/ZIP Co de Phone Number [facility] [address] [place] [phone] * (ABNORMAL) Hepatic Function Panel (09/05/2024 11:10 AM EDT) Bilirubin, Total 0.4 0.0 - 1.0 mg/dL [facility] Bilirubin, Direct 0.1 0.0 - 0.5 mg/dL [facility] Aspartate Amino Transferase 26 5 - 31 U/L [facility] Alanine Aminotransferase 33(H) 0 - 31 U/L [facility] Total Protein 8.0 6.5 - 8.0 g/dL [facility] Albumin Level 4.5 3.5 - 5.0 g/dL [facility] Alkaline Phosphatase 84 39 - 117 U/L [facility] Blood Venous blood specimen / Unknown 09/05/2024 11:10 AM EDT 09/05/2024 1:25 PM EDT Ava Yap DO LAB BLOOD ORDERABLES Final R esult Performing Organization Address City/[facility]/ZIP Co de Phone Number [facility] [address] [place] [phone] * Basic Metabolic Panel (09/05/2024 11:10 AM EDT) Sodium 140 135 - 145 mmol/L [facility] Potassium 3.9 3.3 - 5.1 mmol/L [facility] Chloride 108 96 - 108 mmol/L [facility] Carbon Dioxide 24 22 - 29 mmol/L [facility] Anion Gap 12 12 - 20 [facility] Urea Nitrogen (BUN) 12 9 - 16 mg/dL [facility] Creatinine, Serum 0.74 0.5 - 1.4 mg/dL [facility] Estimated Glomerular Filt Rate >60 [facility] Comment:Chronic Kidney Disea se: Estimated GFR < 60 mL/min/1.15l9Cquhom Kidney Disease: Estimated GFR < 15 mL/min/1.73m2 Glucose 107 60 - 115 mg/dL [facility] Calcium 9.7 8.4 - 10.2 mg/dL [facility] Blood Venous blood specimen / Unknown 09/05/2024 11:10 AM EDT 09/05/2024 1:25 PM EDT Ava Yap DO LAB BLOOD ORDERABLES Final R esult Performing Organization Address City/State/[facility] Co de Phone Number [facility] [address] [place] [phone] * POCT ELISEO-14 Urine Drug Screen (08/29/2024 10:14 AM EST) Benzodiazepines Screen, Urine Positive Urine Urine specimen obtained by clean catch procedure / Unknown 08/29/2024 10:14 AM EST Denisha Schroeder RN - 08/29/2024 10:14 AM EST UTOX cup Lot#[id number] Exp. 02/12/26 Internal Pass Control vAa Yap DO POINT OF CARE TEST ENTER/HILARIO T ORDERABLES Final Result * BI Mammogram Screening Tomosynthesis Bilateral (05/04/2023 1:45 PM EST) Anatomical Region Laterality Modality Breast Bilateral Mammography 05/04/2023 1:45 PM EST Narrative 05/22/2023 6:55 AM EST ? [facility] ? [address] ?[place] [address] ? Mammography Report ? Signed ? Patient: Asif Muhammad,Ximena ?MR#: ?? [id number] ? : 1970 ?Acct:[id number] ? Age/Sex: 52 / F ?ADM Date: 05/04/23 ? Loc: HO.MAMMO ? Attending Dr: Ava Yap DO ? Ordering Physician: Ava Yap DO ?Results: 1N ?? egative ? Date of Service: 05/04/23 ?Follow Up: 1 Year From Orig ?? inal Mammogram ? Procedure(s): MM tomosynthesis screening BI ?? Accession Number(s): [id number] ? cc: Ava Yap DO ? EXAMINATION: [...] 0651 ? DD/ 1345 ? TD/TT: ? Logistics Support: ? Procedure Note Johnnywoodyeunicealecia, Image - 05/22/2023 Aure[place] [facility] [address] [place] [address] Mammography Report Signed Patient: Heath XiongR#: [id number] : 1970Acct:[id number] Age/Sex: 52 / FADM Date: 05/04/23 Loc: HO.MAMMO Attending Dr: Ava Yap DO Ordering Physician: Ava Yapults: 1N egative Date of Service: 05/04/23Follow Up: 1 Year From Orig inal Mammogram Procedure(s): MM tomosynthesis screening BI Accession Number(s): [id number] cc: Ava Yap DO EXAMINATION: MM SCREENING [...] in OV> 05/22/23 0651 DD/ 1345 TD/TT: Logistics Support: us Ava Fracisco DO IMG BI PROCEDURES Final Resu lt * HPV E6/E7 RFLX ELMER 16 18/45 (08/23/2019 11:30 AM EST) ADDITIONAL TESTING Not indicated () [facility] Comment: Test Performed by [facility], [facility] [place], [address] [place] [address] Jorge López M.D., Ph.D., Director of Laboratories , [place] [id number] HPV 16 RNA Test not performed [facility] HPV 18/45 RNA Test not performed [facility] HPV mRNA E6/E7 Not Detected NOT DETECTED [facility] Comment: This test was performed using the APTIMA(R) HPV Assay ([employer] This assay detects E6/E7 viral messenger RNA (mRNA) from 14 high-risk HPV types (16,18,31,33,35,39,45,51, 52,56,58,59,66,68). For additional information please refer to: http://education.[employer]faq/ZQS460a7 (This link is being provided for informational/ educational purposes only.) The analytical performance characteristics of this assay have been determined by [facility] [place], [place]. The modifications have not been cleared or approved by the FDA. This assay has been validated pursuant to the CLIA regulations and is used for clinical purposes. Please note: ??Effective 03/07/2016, HPV testing will be performed using [employer] APTIMA test which targets mRNA. Detecting mRNA instead of DNA, as in older methods, offers significant improvements in specificity. 08/23/2019 11:3 0 AM EST Ava Yap DO HISTORICAL/NON ORDERABLE LAB S Final Result [facility] [address] [place] [address], from Last 3 Months or Most Recently Relevant to Health Maintenance [place] [address] C3 DENTAL-[facility] MEDICAID STAND ADULT Care Teams Paper Rewinder Operator Relationship Specialty Start Date End Date Ava Yap DO [address] [place] [id number] PCP - General Family Medicine 03/28/11 Avelina Hodges Fermenting Cellars SupervisorObgyn Specialist 04/21/23
--- OUTSIDE RECORDS SUMMARY | 2024-10-31 08:48 | XMS_ITS | Encounter Summary ---
Author Organization [employer] Address [address] [facility] 7 [place] [address] Care Team Providers Care Resilient Tile Installer Name Role Phone Ava Yap DO Primary Care Provider + [phone] Reason for Visit * Reason Onset Date Comments Med Refill Schedule APPLICATION INTERNSHIP Initial 04/26/2023 Encounter Details Date Type Department Care Team (Late st Contact Info) Description 04/26/2023 Refill [facility] [address] [place] [address] Ava Yap DO [address] [place] [address] Anxiety; Chronic bilateral low back pain, unspecified [...] - 04/26/2023 11:55 AM EDT TC via P/I#[id number], male voice answered, stated pt was not available. L/M with Rich requesting pt call back to schedule APPLICATION INTERNSHIP Initial appt. documented in this encounter Plan of Treatment Upcoming Encounters Date Type Department Care Team (Late st Contact Info) Description 11/28/2024 1:30 PM EDT Clinical Support [facility] [address] [place] [address] Denisha Cross, RN documented as of this encounter Visit Diagnoses Diagnosis Anxiety Anxiety state, unspecified Chronic bilateral low back pain, unspecified whether sciatica present documented in this encounter Additional Health Concerns Assessment Noted Time PHQ-9 Depression Total Score: 21 023 10:23 AM EDT documented as of this encounter Care Teams Resilient Tile Installer Relationship Specialty Start Date End Date Ava Yap DO [address] [place] [address] PCP - General Family Medicine 03/28/11 Avelina Hodges Hvac Residential Service TechnicianSpanish Interpreter/Translator 04/21/23 documented as of this encounter
--- OUTSIDE RECORDS SUMMARY | 2024-10-31 08:48 | XMS_ITS | Encounter Summary ---
Author Organization [employer] Address [address] [address] Care Team Providers Care Lapel Padder Name Role Phone Ava Yap DO Primary Care Provider + [phone] Reason for Visit * Reason Onset Date Comments Appointment Request 07/16/2024 Call Back Request 07/16/2024 Encounter Details Date Type Department Care Team ([facility] st Contact Info) Description 07/16/2024 Telephone [facility] [address] [place] [address] Ava Yap DO [address] [place] [address] Appointment Request; Call Back Request Social History [...] she don't want to be without meds. [phone] documented in this encounter Plan of Treatment Upcoming Encounters Date Type Department Care Team (Late st Contact Info) Description 11/28/2024 1:30 PM EDT Clinical Support [facility] [address] [place] [address] Denisha Cross RN documented as of this encounter Visit Diagnoses Not on filedocumented in this encounter Additional Health Concerns Assessment Noted Time PHQ-9 Depression Total Score: 5 06/22/20 10:59 AM EST documented as of this encounter Care Teams Lapel Padder Relationship Specialty Start Date End Date Ava Yap DO [address] [place] [address] PCP - General Family Medicine 03/28/11 Avelina Hodges Track InspectorInsulation Cutter And Former 04/21/23 documented as of this encounter
--- OUTSIDE RECORDS SUMMARY | 2024-10-31 08:48 | XMS_ITS | Encounter Summary ---
Author Organization [facility] [employer] Address [address] [place] [address] Care Team Providers Care Closet Builder Name Role Phone Ava Yap DO Primary Care Provider + [phone] Reason for Visit * Reason Comments Med Refill Encounter Details Date Type Department Care Team ([facility] Contact Info) Description 03/19/2023 Refill [facility] [address] [place] [address] Ava Yap DO [address] [place] [address] [phone] Social History Tobacco Use Types Packs/Day Years [...] Upcoming Encounters Date Type Department Care Team ([facility] Contact Info) Description 11/28/2024 1:30 PM EDT Clinical Support [facility] [address] [place] [phone] Denisha Cross RN documented as of this encounter Visit Diagnoses Not on filedocumented in this encounter Additional Health Concerns Assessment Noted Time PHQ-9 Depression Total Score: 21 023 10:23 AM EDT documented as of this encounter Care Teams Closet Builder Relationship Specialty Start Date End Date Ava Yap DO [address] [place] [address] PCP - General Family Medicine 03/28/11 Avelina Hodges Child Care Associate TeacherEngineering Production Worker 04/21/23 documented as of this encounter
[2024-10-31 09:01] LABS: MANUAL DIFF FLAG NO
[2024-10-31 09:28] LABS: Basophils Percent Auto 0.3 % (0-2); Eosinophils Absolute Auto 0.1 X10*3/uL (0.0-0.4); Eosinophils Percent Auto 0.9 % (0-4); Hematocrit 40.2 % (37.0-47.0); Hemoglobin 13.4 g/dl (12.0-16.0); Imm Gran Abs Auto 0.02 X10*3/uL (0.00-0.03); Imm Gran Pct Auto 0.3 % (0.0-0.4); Lymphocytes Percent Auto 46.4 % (20-40); Mean Corpuscular HGB Conc 33.3 g/dl (31.0-35.0); Mean Corpuscular Hemoglobin 30.5 pg (27.0-33.0); Mean Corpuscular Volume 91.6 fL (80.0-98.0); Mean Platelet Volume 11.3 fL (9.4-12.3); Monocytes Absolute Auto 0.6 X10*3/uL (0.1-1.2); Monocytes Percent Auto 9.5 % (2-11); Neutrophils Absolute Auto 2.8 x10*3/uL (2.0-8.3); Neutrophils Percent Auto 42.6 % (45-73); Platelet Count 240 X10*3/uL (160-400); Red Blood Count 4.39 X10*6/uL (4.20-5.50); Red Cell Distribution Width 12.8 % (11.0-16.0); White Blood Count 6.6 X10*3/uL (4.8-10.8)
[2024-10-31 09:38] LABS: Estimated Average Glucose 126 mg/dL
[2024-10-31 10:24] LABS: Folate 10.2 ng/mL (> or = 4.0); Vitamin B12 434 pg/mL (200-900)
[2024-10-31 10:28] LABS: Albumin Level 4.6 g/dL (3.5-5.0); Alkaline Phosphatase 75 U/L (39-117); Anion Gap 12 (12-20); Aspartate Amino Transferase 28 U/L (5-31); Bilirubin Total 0.3 mg/dL (0.0-1.0); Blood Urea Nitrogen 21 mg/dL (9-16); C Reactive Protein 0.75 mg/dL (< or = 0.50); Calcium 9.9 mg/dL (8.4-10.2); Carbon Dioxide 22 mmol/L (22-29); Chloride 109 mmol/L (96-108); Cholesterol 159 mg/dL (<200); Estimated Glomerular Filt Rate > 60; Ferritin 82 ng/mL (10-250); Glucose Random 115 mg/dL (60-115); HDL Cholesterol 45 mg/dL (>40); Iron 69 mcg/dL (30-160); LDL Cholesterol Calculated 75 mg/dL (<100); Percent Iron Saturation 24 % (15-50); Potassium 4.1 mmol/L (3.3-5.1); Sodium 139 mmol/L (135-145); TSH reflex Free T4 3.89 uIU/mL (0.32-4.0); Total Iron Binding Capacity 290 mcg/dL (228-428); Total Protein 7.7 g/dL (6.5-8.0); Triglycerides 198 mg/dL (<150); Unsaturated Iron Binding 221 ug/dL; Vitamin D 25-OH Total 25.5 ng/mL (>30)
[2024-10-31 10:47] LABS: Alanine Aminotransferase 34 U/L (0-31)
[2024-10-31 11:01] LABS: Insulin 37 uU/mL (2-29)
[2024-11-03 21:48] LABS: Zinc 90 mcg/dL (60-130)
[2024-11-05 02:08] LABS: Vitamin A 74 mcg/dL (38-98)
[2024-11-07 06:28] LABS: Vitamin B1 16 nmol/L (8-30)
== END 2024-10-31 08:34 | disposition home or self-care (01) ==
LOC: HO.LAB 08:33
PROVIDERS: PCP Family Medicine; Visit Provider Physician Assistant Surgical
DX: E66.01 Morbid (severe) obesity due to excess calories (principal); E78.5 Hyperlipidemia, unspecified; I10 Essential (primary) hypertension
CPT/HCPCS: 36415; 80053; 80061; 82306; 82607; 82728; 82746; 83036; 83525; 83540; 84425; 84443; 84590; 84630; 85025; 86140

== ENCOUNTER 2024-12-25 13:33 | Outpatient (AMB) | payer MEDICAID, SELFPAY ==
--- NOTE | 2024-12-25 13:38 | MHC.OFFVIS ---
Vital Signs 12/25/24 13:39 Height 4 ft 9 in Weight 226 lb BMI 48.9 BP 144/94 H Intake Visit Reasons: ECONOMIC MANAGER annual exam/DO NOT RS Supervisor Film Processing Required: Yes Supervisor Film Processing Language: Typing Pool Supervisor Services: Supervisor Film Processing Present (in person) Supervisor Film Processing Name: Alayna LEE Information Interpreted: non-clinical & clinical Brake Machine Operator: Brake Machine Operator Present (Alayna LEE) Accompanied by: Self / Same As Patient Allergies loratadine (From CLARITIN) Allergy (Mild, Verified 12/25/24 13:46) CHILLS AND DIFF BREATHING Post menopausal: Yes HPI Comments Details: Presenting for annual exam. No complaints. Last Pap/HPV was negative in 09/12 Last Mammogram was BI-RADS 1 in 05/18 Last Colonoscopy [facility] Medical History Epigastric pain Pre-op chest exam Chronic restrictive lung disease NAM treated with BiPAP Asthma-COPD overlap syndrome Sleep apnea Fibromyalgia Hypertension Fatty liver Gall bladder polyp Acid reflux Obesity (BMI 30-39.9) Coronary artery disease Hyperlipidemia Surgical History History of partial hysterectomy History of esophagogastroduodenoscopy History of endometrial ablation Hx of tubal ligation History of cardiac cath Family History Paternal Grandfather No problems noted. Father History of cancer Lung cancer Mother Heart disease Asthma Social History Household Members: Family and Children Housing: House Do you presently have visiting nurse or other home services: No Alcohol intake: never Patient Tobacco Use Status: Former Tobacco user Tobacco use type: Cigarette Years Smoked: 5 years Second Hand Smoke Exposure: No service: No Current occupational status: disabled Sexual orientation: Straight/Heterosexual Gender identity: Female Female Reproductive History Menstrual Menopause type: surgical (hysterectomy) Date of Mammogram: 05/04/23 Review of Systems Const All systems reviewed & are unremarkable except as noted in HPI and below Card Reports as per HPI and Reports no additional complaints Resp Reports as per HPI and Reports no additional complaints GI Reports as per HPI and Reports no additional complaints Reports as per HPI Physical Exam Vital Signs: Last Vital Signs BP 144/94 H 12/25/24 13:39 BMI result Body Mass Index 48.9 Const General: cooperative, healthy appearing and comfortable General: Yes bladder normal to palpation External Female Exam: No lesion Speculum Exam - Vagina: normal appearance of the vagina, normal vaginal discharge and not erythematous Speculum Exam - Cervix: Cervix absent Bimanual exam- vagina & uterus: bladder normal to palpation and uterus absent Bimanual Exam- Adnexa, other: Other (No masses detected) Assessment & Plan Assessment & Plan (1) Well woman exam: Code(s): Z01.419 - Encounter for gynecological examination (general) (routine) without abnormal findings Category: Medical Plan: Cotesting not indicated. Mammogram ordered. Counseled the patient about the recommended dietary allowance of 1000 mg of Calcium & 600 IU of vitamin D. Referral to GI for screening colonoscopy placed The patient was instructed to perform monthly self-breast exams and to schedule an annual exam in a year; All questions answered and the patient verbalized understanding. Instructed the patient to schedule annual exam in a year Orders: Orders MM tomosynthesis screening BI Today Z12.31 - Encounter for screening mammogram for malignant neoplasm of breast Referrals Gastroenterology Referral Z12.11 - Encounter for screening for malignant neoplasm of colon Coding Level of Care Code Est Pt Prev Care 40-64y([id number]) Diagnoses Well woman exam Z01.419
[2024-12-25 13:39] VITALS: BP 144/94; BMI 48.9
--- OUTSIDE RECORDS SUMMARY | 2024-12-25 14:09 | XMS_ITS | Encounter Summary ---
Author Organization [employer] [facility] Address [address] [place] [address] Care Team Providers Care Final Assembler Boat Name Role Phone Ava Yap DO Primary Care Provider + [phone] Reason for Visit * Reason Comments Med Refill Encounter Details Date Type Department Care Team (Late st Contact Info) Description 11/14/2022 Refill [facility] [address] [place] [address] [phone] Ava Yap DO [address] [place], [place] [phone] Anxiety Social History Tobacco Use Types Packs/Day [...] Care Team (Late st Contact Info) Description 03/03/2025 1:30 PM EDT Clinical Support [facility] [address] [place], [place] [phone] Denisha Cross RN documented as of this encounter Visit Diagnoses Diagnosis Anxiety Anxiety state, unspecified documented in this encounter Additional Health Concerns Assessment Noted Time PHQ-9 Depression Total Score: 0 07/27/19 23 11:46 AM EST documented as of this encounter Care Teams Final Assembler Boat Relationship Specialty Start Date End Date Ava Yap DO [address] [place] [address] PCP - General Family Medicine 03/28/11 Avelina Hodges Riveting Machine OperatorFinancial Services Specialist 04/21/23 documented as of this encounter
--- OUTSIDE RECORDS SUMMARY | 2024-12-25 14:10 | XMS_ITS ---
Author Name [facility] Organization Unknown Encounters Encounter Type Encounter Reason Primary Diagnosis Location Date Ambulatory [facility] 05/17/2023 Emergency Acute pharyngiti s, unspecified [facility] 08/12/2022 Care Team Organization Name Specialty Phone Email Start Date End Da te [facility] PCP,No Primary Care 05/17/2023 09/11/2024 [facility] NO PCP Primary Care 08/12/2022 08/12/2022 [facility] NO PCP Primary Care 08/12/2022 08/12/2022 [facility] 08/12/2022
--- OUTSIDE RECORDS SUMMARY | 2024-12-25 14:10 | XMS_ITS | Clinical Summary ---
Author Organization [facility] Address [address] [place] [address] Care Team Providers Care Gourmet Coffee Attendant Name Role Phone Pcp, No Primary Care [...] 107 08/12/2022 9:36 PM EST Temperature 37.1 C (98.8 F) 08/12/2022 7:10 PM EST Respiratory Rate 16 08/12/2022 9:36 PM EST [...] season) 2024, 10/03/2020 Influenza Vaccine 01/24/2025 Insurance [facility] Care Teams Gourmet Coffee Attendant Relationship Specialty Start Date End Date Pcp, No PCP - General General Medicine 08/12/22
== END 2024-12-25 13:58 | disposition home or self-care (01) ==
LOC: HO.HWS 13:34
PROVIDERS: PCP Family Medicine; Visit Provider Obstetrics & Gynecology
DX: Z01.419 Encounter for gynecological examination (general) (routine) without abnormal findings (principal)
CPT/HCPCS: 99396; 99459

== ENCOUNTER → 2024-12-25 13:33 | Outpatient (BNVA) | payer MEDICAID, SELFPAY | PROVIDERS: PCP Family Medicine; Visit Provider Obstetrics & Gynecology | DX: Z01.419 Encounter for gynecological examination (general) (routine) without abnormal findings (principal) | CPT/HCPCS: 99396 ==

== ENCOUNTER 2025-01-07 10:50 | Outpatient (AMB) | payer MEDICAID, SELFPAY ==
--- NOTE | 2025-01-07 11:02 | A.OFFVIS_ITS ---
VS Expanded 01/07/25 11:10 BP 127/60 Blood Pressure Location Lt brachial Blood Pressure Position Sitting Pulse 98 Pulse Source Pulse Oximeter Temp 97.2 F Temperature Source Temporal Artery Scan Pulse Oximetry 97 Oxygen Delivery Method Room Air Height 4 ft 9 in Weight 223 lb 4 oz BMI 48.3 Body Fat % 47.0 Body Fat Mass 105.0 Fat Free Mass 118.4 Visceral Fat Rating 17.0 Body Water % 37.7 Body Water Mass 84.2 Muscle Mass/Score 112.4 Basal Metabolic Rate/Score 1,671 Intake Visit Reasons: (OV) F/U SWL Mold Preparer Required: Yes Mold Preparer Services: Mold Preparer Present Mold Preparer Name: hospital cmi Allergies loratadine (From [employer]hips) Allergy (Mild, Verified 12/25/24 13:46) CHILLS AND DIFF BREATHING Medication List - Last Reconciled 01/07/25 by CHRISTIE Shaikh acetaminophen 500 mg PO Q6H PRN albuterol sulfate 90 mcg/actuation 1 inh inhalation QID PRN albuterol sulfate 1 amp inhalation Q4H PRN amlodipine 10 mg PO DAILY cetirizine 10 mg PO DAILY cholecalciferol (vitamin D3) 125 mcg PO DAILY 90 days CPAP (CPAP Machine/Device) As directed docusate sodium (Colace) 100 mg PO DAILY PRN doxycycline monohydrate 100 mg PO BID 14 days duloxetine 60 mg PO DAILY evolocumab (Repatha SureClick) 140 mg subcut Q2W ezetimibe 10 mg PO DAILY famotidine 40 mg PO BEDTIME fenofibrate 54 mg PO DAILY fluticasone propionate 50 mcg/actuation 2 sprays intranasal DAILY ndmciphzkje-rogivaiij-smkotqfh 200-62.5-25 mcg (Trelegy Ellipta) 1 inh inhalation DAILY 30 days gabapentin 400 caps PO BID ibuprofen 600 mg PO Q8H PRN ibuprofen 600 mg PO Q6H PRN ibuprofen 600 mg PO Q8H PRN 14 days lisinopril 5 mg PO DAILY lorazepam (Ativan) 2 mg PO BEDTIME PRN montelukast (Singulair) 10 mg PO BEDTIME 30 days multivit-iron sulf-folic acid 15 mg iron- 400 mcg (Tab-A-Colton Multivitamin w- iron) 1 tab PO DAILY naloxone 4 mg/actuation 1 spray intranasal ONCE PRN nebulizers As directed ondansetron 4 mg PO Q8H PRN polyethylene glycol 3350 (Miralax) 17 grams PO DAILY roflumilast (Daliresp) 250 mcg PO DAILY 30 days rosuvastatin 40 mg PO DAILY sennosides (Natural Senna Laxative) 8.6 mg PO BEDTIME sumatriptan succinate 50 mg PO Q2-4H PRN tramadol 50 mg PO BID PRN umeclidinium-vilanterol 62.5-25 mcg/actuation (Anoro Ellipta) 1 inh inhalation DAILY zolpidem (Ambien) 5 mg PO BEDTIME PRN HPI Comments Details: The patient is a pleasant 53 year old female who returns to the clinic for pre- operative surgical weight loss management. They were last seen in the office on 02/28/2024 for her 1st appointment, recorded weight at that time was 224 pounds, with a BMI of 48.5. She was seen for the 2nd time in August 2024 with a weight of 220.8 lb. Weight today is 223.4 lb correlating to 0.6 lb weight loss since starting the program in February 2024 and 2.6 lb weight gain since August 2024.. She was given information regarding the right BMI edward at the time of her initial appointment. She states that she did not follow the meal plan at all. She states that she did go onto the right BMI but did not follow the meal plan She additionally states that she is not sure why she missed 5 appointments since her initial appointment. She states that she has had many things go on in her life, ?a 1000 things? and has been unable to follow through. Despite multiple efforts since her initial appointment, she is unable to commit to the program. She has additionally caring for her 1-1/2-year-old granddaughter Meal plan: nothing structured Exercise plan: walking outside 6 days per week, 1 hour treadmill, stationary bike at home Treadmill or bike 2 x per week, 200-300 caridad [facility] Medical History Epigastric pain Pre-op chest exam Chronic restrictive lung disease NAM treated with BiPAP Asthma-COPD overlap syndrome Sleep apnea Fibromyalgia Hypertension Fatty liver Gall bladder polyp Acid reflux Obesity (BMI 30-39.9) Coronary artery disease Hyperlipidemia Surgical History History of partial hysterectomy History of esophagogastroduodenoscopy History of endometrial ablation Hx of tubal ligation History of cardiac cath Family History Paternal Grandfather No problems noted. Father History of cancer Lung cancer Mother Heart disease Asthma Social History Household Members: Family and Children Housing: House Do you presently have visiting nurse or other home services: No Alcohol intake: never Patient Tobacco Use Status: Former Tobacco user Tobacco use type: Cigarette Years Smoked: 5 years Second Hand Smoke Exposure: No service: No Current occupational status: disabled Sexual orientation: Straight/Heterosexual Gender identity: Female Physical Exam Const General: healthy appearing and no acute distress Resp Effort & Inspection: normal respiratory effort Auscultation: clear to auscultation bilaterally Cardio Rate: regular rate Rhythm: regular rhythm GI Auscultation: normal bowel sounds Extrem General: Yes normal to inspection Assessment & Plan Assessment & Plan (1) Morbid obesity: Code(s): E66.01 - Morbid (severe) obesity due to excess calories Category: Medical Plan: Patient is going to take a break from the program. She has many things going on including multiple appointments for her young granddaughter. She additionally has been having increased depression. She feels as though her medications are contributing to her weight gain. She is going to discuss this with psychiatry. Additionally, she has been unable to commit to the program although she has reduced rice in her overall diet. She states she has been eating more fruits and vegetables and has been congratulated on the changes. She has all of the information to apply herself. Once she has more capability to commit to our program, she will call for a follow-up appointment. She is certainly welcome to call the office at any time once she is ready to commit. Certainly, GLP 1 medications could be used if she is able to commit to the program, the med ications themselves are not the answer but rather an adjunct to the plan.
[2025-01-07 11:10] VITALS: BP 127/60; PULSE 98; TEMP 36.2; O2SAT 97; BMI 48.3
--- OUTSIDE RECORDS SUMMARY | 2025-01-07 12:11 | XMS_ITS | Encounter Summary ---
Author Organization [employer] [facility] Address [address] [place] [address] Care Team Providers Care Laryngologist Name Role Phone Ava Yap DO Primary Care Provider + [phone] Reason for Visit * Reason Comments Med Refill Encounter Details Date Type Department Care Team (Late st Contact Info) Description 11/14/2022 Refill [facility] [address] [place] [address] [phone] Ava Yap DO [address] [place], [place] [phone] Anxiety Social History Tobacco Use Types Packs/Day [...] Description 03/03/2025 1:30 PM EDT Clinical Support [facility] [address] [place], [place] [phone] Denisha Cross RN documented as of this encounter Visit Diagnoses Diagnosis Anxiety Anxiety state, unspecified documented in this encounter Additional Health Concerns Assessment Noted Time PHQ-9 Depression Total Score: 0 07/27/19 23 11:46 AM EST documented as of this encounter Care Teams Laryngologist Relationship Specialty Start Date End Date Ava Yap DO [address] [place] [address] PCP - General Family Medicine 03/28/11 Avelina Hodges Instructor Adjunct Surgical TechnicianDiesel Bus Mechanic 04/21/23 documented as of this encounter
--- OUTSIDE RECORDS SUMMARY | 2025-01-07 12:11 | XMS_ITS | Clinical Summary ---
Author Organization [facility] Address [address] [place] [address] Care Team Providers Care Exhibition Designer Name Role Phone Pcp, No Primary Care [...] season) 2024, 10/03/2020 Influenza Vaccine 01/24/2025 Insurance [facility] Care Teams Exhibition Designer Relationship Specialty Start Date End Date Pcp, No PCP - General General Medicine 08/12/22
== END 2025-01-07 11:28 | disposition home or self-care (01) ==
LOC: HO.HBS 10:50
PROVIDERS: PCP Family Medicine; Visit Provider Physician Assistant Surgical
DX: E66.01 Morbid (severe) obesity due to excess calories (principal)
CPT/HCPCS: 99213

== ENCOUNTER → 2025-01-07 10:50 | Outpatient (BNVA) | payer MEDICAID, SELFPAY | PROVIDERS: PCP Family Medicine; Visit Provider Physician Assistant Surgical | DX: Z98.84 Bariatric surgery status (principal); E66.01 Morbid (severe) obesity due to excess calories; Z98.890 Other specified postprocedural states | CPT/HCPCS: 99212 ==

== ENCOUNTER 2025-01-17 15:11 | Outpatient (AMB) | payer MEDICAID, SELFPAY ==
--- OUTSIDE RECORDS SUMMARY | 2025-01-17 15:13 | XMS_ITS | Clinical Summary ---
Author Organization [facility] Address [address] [place] [address] Care Team Providers Care Outpatient Coding Specialist Name Role Phone Pcp, No Primary Care [...] season) 2024, 10/03/2020 Influenza Vaccine 01/24/2025 Insurance [facility] Care Teams Outpatient Coding Specialist Relationship Specialty Start Date End Date Pcp, No PCP - General General Medicine 08/12/22
--- OUTSIDE RECORDS SUMMARY | 2025-01-17 15:13 | XMS_ITS | Encounter Summary ---
Author Organization [employer] [facility] Address [address] [place] [address] Care Team Providers Care Plastic Bubble Packer Name Role Phone Ava Yap DO Primary Care Provider + [phone] Reason for Visit * Reason Comments Med Refill Encounter Details Date Type Department Care Team (Late st Contact Info) Description 11/14/2022 Refill [facility] [address] [place] [address] [phone] Ava Yap DO [address] [place], [place] [phone] Anxiety Social History Tobacco Use Types Packs/Day [...] Description 03/03/2025 1:30 PM EDT Clinical Support [facility] [address] [place], [place] [phone] Denisha Cross RN documented as of this encounter Visit Diagnoses Diagnosis Anxiety Anxiety state, unspecified documented in this encounter Additional Health Concerns Assessment Noted Time PHQ-9 Depression Total Score: 0 07/27/19 23 11:46 AM EST documented as of this encounter Care Teams Plastic Bubble Packer Relationship Specialty Start Date End Date Ava Yap DO [address] [place] [address] PCP - General Family Medicine 03/28/11 Avelina Hodges Soldering InspectorCan Worker 04/21/23 documented as of this encounter
[2025-01-17 15:14] VITALS: BMI 48.3
--- NOTE | 2025-01-17 15:14 | A.OFFVIS_ITS ---
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 Patient reports locking and catching started about 2 months ago. She states she is having pain at the base of the thumb. She has tried bracing, however this did not help with her discomfort. Denies any other treatments. No injury. 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 Patient reports locking and catching started about 2 months ago. She states she is having pain at the base of the thumb. She has tried bracing, however this did not help with her discomfort. Denies any other treatments. No injury. ON LICENSE OF [facility] Medical History Epigastric pain Pre-op chest exam Chronic restrictive lung disease NAM treated with BiPAP Asthma-COPD overlap syndrome Sleep apnea Fibromyalgia Hypertension Fatty liver Gall bladder polyp Acid reflux Obesity (BMI 30-39.9) Coronary artery disease Hyperlipidemia Surgical History (Reviewed 01/17/25 @ 15:43 by Nicole Raymond [facility]) History of partial hysterectomy History of esophagogastroduodenoscopy History of endometrial ablation Hx of tubal ligation History of cardiac cath Family History Paternal Grandfather No problems noted. Father History of cancer Lung cancer Mother Heart disease Asthma Social History Household Members: Family and Children Housing: House Do you presently have visiting nurse or other home services: No Alcohol intake: never Patient Tobacco Use Status: Former Tobacco user Tobacco use type: Cigarette Years Smoked: 5 years Second Hand Smoke Exposure: No service: No Current occupational status: disabled Sexual orientation: Straight/Heterosexual Gender identity: Female Review of Systems Const All systems reviewed & are unremarkable except as noted in HPI and below Physical Exam Vital Signs: BMI result Body Mass Index 48.3 Extrem Other: Patient is alert, oriented, and in no acute distress. Neuro: Normal sensation of the tips of all digits of the right hand at this time Vascular: Cap refill brisk Pain: Tenderness to the A1 kiana of the right thumb Pain associated with locking and catching ROM: There is a visible and palpable locking and catching of the right thumb in a flexed position Patient is able to flex and extend all other digits of the right hand fully and without difficulty Skin: No lacerations or abrasions. General: No ecchymosis, erythema, or evidence of infection. Psych: Appears grossly normal Affect normal Attitude cooperative Assessment & Plan Assessment & Plan (1) Trigger thumb, right thumb: Code(s): M65.311 - Trigger thumb, right thumb Category: Medical Plan 1. Right trigger thumb Patient is educated about this condition Patient is educated about the treatment options available Patient would like to proceed with steroid injection at this time The risks and benefits of a steroid injection including but not limited to risk of damage to blood vessels, nerves, tendons, infection, skin bleaching, failure to improve symptoms, increased pain, and possible need for further injections or other intervention were discussed with the patient and the patient wishes to proceed with the steroid injection. Once consent was obtained, I sterilely prepped the area over the A1 kiana of the flexor tendon sheath of the right thumb. I then injected the flexor tendon sheath with a combination of 1 mL of dexamethasone (4mg/ml), and 1% lidocaine. The patient tolerated the procedure well with no complications. If the patient continues to have locking and catching 4-6 weeks following this injection, they may call to schedule appointment to discuss alternative treatment options Follow-up prn Coding Level of Care Code New Pt Level 3 (76196) Diagnoses Trigger thumb, right thumb M65.311
== END 2025-01-17 15:47 | disposition home or self-care (01) ==
LOC: HO.HOS 15:12
PROVIDERS: PCP Family Medicine
DX: M65.311 Trigger thumb, right thumb (principal)
CPT/HCPCS: 20550; 99203

== ENCOUNTER → 2025-01-17 15:11 | Outpatient (BNVA) | payer MEDICAID, SELFPAY | PROVIDERS: PCP Family Medicine | DX: M65.311 Trigger thumb, right thumb (principal) | CPT/HCPCS: 20550; 99212; J1100; J2003 ==

== ENCOUNTER 2025-02-01 11:26 | Emergency (ER) | payer MEDICAID, SELFPAY ==
--- NOTE | ~2025-02-01 | XR_ITS ---
CLINICAL HISTORY: CP 2 view chest x-ray Comparison: CR/SR - XR CHEST 2 VIEWS - 06/18/24 16:17 EST Findings: Lungs are well inflated. Cardiac silhouette is within normal limits. No focal areas of consolidation. Scattered calcified granulomas within the lungs. No pleural effusion. IMPRESSION: 1. No acute findings. This document has been electronically signed by: Pedro Andrews MD on 02/01/2025 13:02:28
[2025-02-01 11:40] VITALS: BP 140/87; PULSE 98; RESP 18; TEMP 37.1; O2SAT 97; BMI 44.0
--- NOTE | 2025-02-01 11:41 | ED.GENADULT ---
HPI - General Adult General Chief complaint: General Medical Stated complaint: CP, coughing up phlegm and phlegm has blood Time Seen by Provider: 02/01/25 14:01 Source: patient Mode of arrival: ambulatory History of Present Illness ED Provider: Papa MINOR narrative: 54-year-old female with presentation for cough with productive sputum but denies any associated sick contacts/fever/chills, denies any prior history of smoking or diagnoses of asthma/COPD, patient does have high blood pressure and uses a CPAP at night. Patient was most concerned about blood-tinged within the sputum. She has been awaiting a follow-up appointment with her lockstitch binder but it has been rescheduled a couple of times and now her appointment is in February. She reports that she is otherwise well feeling and denies any shortness of breath or chest pain. She denies any use of anticoagulation. Related Data Home Medications ?Medication ?Instructions ?Recorded ?Confirmed docusate sodium 100 mg capsule 100 mg PO DAILY PRN Constipation 03/26/20 01/07/25 (Colace) lorazepam 2 mg tablet (Ativan) 2 mg PO BEDTIME PRN Anxiety 03/26/20 01/07/25 zolpidem 10 mg tablet (Ambien) 5 mg PO BEDTIME PRN Anxiety 03/26/20 01/07/25 tramadol 50 mg tablet 50 mg PO BID PRN Pain 05/20/20 01/07/25 CPAP (CPAP Machine/Device) #1 ea 12/24/20 01/07/25 cetirizine 10 mg tablet 10 mg PO DAILY 07/19/21 01/07/25 duloxetine 60 mg capsule,delayed 60 mg PO DAILY 07/19/21 01/07/25 release fluticasone propionate 50 2 spray intranasal DAILY 07/19/21 01/07/25 mcg/actuation nasal spray,suspension lisinopril 5 mg tablet 5 mg PO DAILY 07/19/21 01/07/25 albuterol sulfate 2.5 mg/3 mL 1 amp inhalation Q4H PRN Wheezing 01/17/22 01/07/25 (0.083 %) solution for nebulization gabapentin 400 mg capsule 400 cap PO BID 01/17/22 01/07/25 multivitamin-iron sulfate 15 1 tab PO DAILY 01/17/22 01/07/25 mg-folic acid 400 mcg tablet (Tab-A-Colton Multivitamin w-iron) naloxone 4 mg/actuation nasal spray 1 spray intranasal ONCE PRN Opioid 01/17/22 01/07/25 Overdose nebulizers 07/18/23 01/07/25 Previous Rx's ?Medication ?Instructions ?Recorded sumatriptan succinate 50 mg tablet 50 mg PO Q2-4H PRN migraine 11/05/20 headache #10 tabs albuterol sulfate 90 mcg/actuation 1 inh inhalation QID PRN shortness 12/28/20 aerosol inhaler of breath or wheezing #8.5 grams polyethylene glycol 3350 17 gram 17 g PO DAILY #30 ea 07/19/21 oral powder packet (Miralax) sennosides 8.6 mg tablet (Natural 8.6 mg PO BEDTIME constipation #30 11/17/21 Senna Laxative) tabs fluticasone fur. 200 mcg-umeclid 1 inh inhalation DAILY 30 days #60 11/19/21 62.5 mcg-vilant 25 mcg ea inhalat.powder (Trelegy Ellipta) ibuprofen 600 mg tablet 600 mg PO Q8H PRN pain 14 days #30 01/17/22 tabs famotidine 40 mg tablet 40 mg PO BEDTIME #30 tabs 05/27/22 acetaminophen 500 mg tablet 500 mg PO Q6H PRN fever or pain 06/24/23 #14 tabs ibuprofen 600 mg tablet 600 mg PO Q8H PRN fever or pain 06/24/23 #14 tabs doxycycline monohydrate 100 mg 100 mg PO BID 14 days #28 tabs 07/18/23 tablet montelukast 10 mg tablet 10 mg PO BEDTIME 30 days #30 tabs 07/18/23 (Singulair) umeclidinium 62.5 mcg-vilanterol 1 inh inhalation DAILY #60 ea 12/06/23 25 mcg/actuation powdr for inhalation (Anoro Ellipta) ezetimibe 10 mg tablet 10 mg PO DAILY #90 tabs 12/08/23 rosuvastatin 40 mg tablet 40 mg PO DAILY #90 tabs 12/08/23 roflumilast 250 mcg tablet 250 mcg PO DAILY 30 days #30 tabs 01/23/24 (Daliresp) fenofibrate 54 mg tablet 54 mg PO DAILY #90 tabs 05/21/24 evolocumab 140 mg/mL subcutaneous 140 mg subcut Q2W #2 mL 06/04/24 pen injector (Dominic Sunshine) ibuprofen 600 mg tablet 600 mg PO Q6H PRN pain #20 tabs 06/18/24 ondansetron 4 mg disintegrating 4 mg PO Q8H PRN nausea and 06/18/24 tablet vomiting #20 tabs cholecalciferol (vitamin D3) 125 125 mcg PO DAILY 90 days #90 caps 10/31/24 mcg (5,000 unit) capsule amlodipine 10 mg tablet 10 mg PO DAILY #90 tabs 12/25/24 Allergies Allergy/AdvReac Type Severity Reaction Status Date / Time loratadine (From CLARITIN) Allergy Mild CHILLS AND Verified 02/01/25 11:41 DIFF BREATHING Review of Systems Review of Systems: Pertinent positives and negatives as stated in HPI [facility] Past Medical History Source: nursing notes reviewed Medical History Epigastric pain Pre-op chest exam Chronic restrictive lung disease NAM treated with BiPAP Asthma-COPD overlap syndrome Sleep apnea Fibromyalgia Hypertension Fatty liver Gall bladder polyp Acid reflux Obesity (BMI 30-39.9) Coronary artery disease Hyperlipidemia Surgical History History of partial hysterectomy History of esophagogastroduodenoscopy History of endometrial ablation Hx of tubal ligation History of cardiac cath Family History Family History Paternal Grandfather No problems noted. Father History of cancer Lung cancer Mother Heart disease Asthma Social History Social History Household Members: Family and Children Housing: House Do you presently have visiting nurse or other home services: No Alcohol intake: never Patient Tobacco Use Status: Former Tobacco user Tobacco use type: Cigarette Years Smoked: 5 years Second Hand Smoke Exposure: No Advance Directives: No Advance Directives Information Provided: Yes service: No Current occupational status: disabled Sexual orientation: Straight/Heterosexual Gender identity: Female Physical Exam ED Exam Exam: VITAL SIGNS: Reviewed. GENERAL: Elevated BMI, Well developed, well nourished, in no acute distress. HEAD: Normocephalic/atraumatic EYES: PERRLA, EOMI EARS: Ext canals without abnormality NOSE: Nares patent bilateral OROPHARYNX: no oral lesions noted, posterior pharynx clear, no swelling noted in posterior pharynx, widely patent, no stigmata of bleeding NECK: Supple, no adenopathy LUNGS: Normal breath sounds. No adventitious sounds or accessory muscle use. SpO2<97> CARDIOVASCULAR: Regular rate and rhythm without noted murmurs, no JVD or lower extremity edema. ABDOMEN: Soft, non-tender, non-distended with bowel sounds. MUSCULOSKELETAL: No tenderness, deformities, or effusions noted on gross inspection. EXTREMITIES: No cyanosis, clubbing or edema. SKIN: Inspection of the skin reveals no rashes NEUROLOGIC: Alert and oriented x 4. Strength and sensation to light touch were grossly intact x 4. Vital Signs: Vital Signs - 24 hr 02/01/25 11:40 Temperature 98.8 F Pulse Rate 98 Respiratory Rate 18 Blood Pressure 140/87 H Pulse Oximetry 97 Oxygen Delivery Method Room Air BMI result Body Mass Index 44.0 Course Course Course Narrative: This is an RME: Additional HPI, ROS, PE not included below will be deferred to primary provider. RME assessment and note performed by: Anushka Skinner PA-C This is a [id number], with a hx of HLD, asthma, HTN, CAD, NAM on bipap, who presents to the ER with complaints of productive cough x 1 week. Reports 3 days ago the sputum was green mixed with blood. No fevers. Not on AC. CP is always there, reporting tightness. Plan: Labs, EKG, cxr, viral swabs Medical Decision Making Medical Decision Making MDM Narrative: This is a 54-year-old female in no acute respiratory distress with a clinical on historical evaluation, DD DX: Suspect dry mucosa with blood-tinged sputum and feel that humidification of the CPAP and possibly an adjustment and CPAP settings may be warranted, no evidence to suggest infectious or mass etiologies, patient otherwise appears well/nontoxic but clearly habitus is consistent with obstructive etiology, on clinical exam no evidence of acute asthma or COPD contributions. No concerns at this time for PE. EKG as interpreted by me: Normal sinus rhythm, HR-87, no STEMI, CT/QRS/QTC/QTC is otherwise within normal limits. There are no acute changes when compared to prior. I reviewed and interpreted all investigations and there is no leukocytosis, anemia, or thrombocytopenia. There is no PAOLA/electrolyte or liver enzyme derangements. I sensitivity troponin is undetectable and not associated with any ischemic changes on EKG. Viral testing is negative for COVID-19/RSV/influenza. My interpretation of the chest x-ray is that there is no evidence of acute infiltrate/venous congestion, on review of radiology's impression corroborates my interpretation. Patient was informed of the reassuring lab work and explain that she may need adjustments to her CPAP machine and the sputum with blood-tinged thing that she was experiencing is likely secondary to the need for this adjustment and possible addition of humidification or increased humidification. Patient is otherwise well appearing/nontoxic and hemodynamically stable and can follow-up on Monday morning with her lockstitch binder as well as her primary care doctor. Differential Diagnosis Differential Diagnoses: The differential diagnosis associated with the presentation includes See above Admission/Observation Consideration of admission/observation: Escalation of care including admission/observation considered Considered and patient does not meet inpatient level of care. Lab Data MDM Lab Attestation statement: I reviewed the patient's lab results. See above 02/01/25 12:13 02/01/25 12:13 Labs: Lab Results 02/01/25 Range/Units 12:13 WBC 5.6 (4.8-10.8) X10*3/uL RBC 4.47 (4.20-5.50) X10*6/uL Hgb 13.9 (12.0-16.0) g/dl Hct 40.0 (37.0-47.0) % MCV 89.5 (80.0-98.0) fL MCH 31.1 (27.0-33.0) pg MCHC 34.8 (31.0-35.0) g/dl RDW 12.9 (11.0-16.0) % Plt Count 216 (160-400) X10*3/uL MPV 10.7 (9.4-12.3) fL Immature Gran % (Auto) 0.2 (0.0-0.4) % Neut % (Auto) 51.1 (45-73) % Lymph % (Auto) 38.7 (20-40) % Blackford % (Auto) 8.9 (2-11) % Eos % (Auto) 0.9 (0-4) % Baso % (Auto) 0.2 (0-2) % Lymph # (Auto) 2.2 (1.2-4.9) X10*3/uL Blackford # (Auto) 0.5 (0.1-1.2) X10*3/uL Eos # (Auto) 0.1 (0.0-0.4) X10*3/uL Baso # (Auto) 0.0 (0.0-0.2) X10*3/uL Abs Immat Gran (auto) 0.01 (0.00-0.03) X10*3/uL Absolute Neuts (auto) 2.9 (2.0-8.3) x10*3/uL Absolute Nucleated RBC 0.000 (0.0-0.012) X10*3/uL Nucleated RBC % (auto) 0.0 (0.0-0.2) /100WBC Sodium 140 (135-145) mmol/L Potassium 4.0 (3.3-5.1) mmol/L Chloride 107 (96-108) mmol/L Carbon Dioxide 24 (22-29) mmol/L Anion Gap 13 (12-20) BUN 13 (9-16) mg/dL Creatinine 0.73 (0.5-1.4) mg/dL Estim Creat Clear Calc 96.0 Estimated GFR > 60 Random Glucose 113 (60-115) mg/dL Calcium 9.5 (8.4-10.2) mg/dL Magnesium 1.9 (1.6-2.6) mg/dL Total Bilirubin 0.4 (0.0-1.0) mg/dL Direct Bilirubin 0.1 (0.0-0.5) mg/dL AST 26 (5-31) U/L ALT 30 (0-31) U/L Alkaline Phosphatase 79 (39-117) U/L Troponin I High Sens < 2.7 (<3.5-17.0) ng/L Total Protein 7.7 (6.5-8.0) g/dL Albumin 4.8 (3.5-5.0) g/dL Lipase 16 (8-78) U/L Influenza Type A (PCR) NEGATIVE (Negative) Influenza Type B (PCR) NEGATIVE (Negative) RSV RNA Qual (PCR) NEGATIVE (Negative) SARS-CoV-2 RNA (RT-PCR) NEGATIVE (Negative) Independent Interpretation I performed an independent interpretation of an: EKG Interpretation: See above Radiology Impression Discussion of test interpretation with radiology: I have reviewed the radiologist's reading. Radiologist Impression: See above External Record Review External record reviewed: Outpatient record and Prior outpatient labs Chronic Conditions Patient?s care impacted by: Hypertension Discharge Plan Discharge Clinical Impression: Obstructive sleep apnea, Blood-tinged sputum Patient Disposition: Home, Self-Care Instructions: Using Oxygen at Home (ED) Additional Instructions: Resume all home medications as prescribed. Please follow-up with your lockstitch binder by calling the office on Monday, I do suspect that either you need an adjustment in the humidification that you are receiving for your CPAP at night as these incidents of sputum with blood tinging are occurring 1st thing in the morning which is mildly suggestive that there is associated dryness throughout the night. If you have any acute worsening of your symptoms please do not hesitate to return to the emergency room. Prescriptions: No Action sennosides [Natural Senna Laxative] 8.6 mg tablet 8.6 mg PO BEDTIME Qty: 30 3RF famotidine 40 mg tablet 40 mg PO BEDTIME Qty: 30 3RF montelukast [Singulair] 10 mg tablet 10 mg PO BEDTIME 30 Days Qty: 30 11RF Anoro Ellipta 62.5-25 mcg/actuation blister with device 1 inh inhalation DAILY Qty: 60 11RF ezetimibe 10 mg tablet 10 mg PO DAILY Qty: 90 3RF rosuvastatin 40 mg tablet 40 mg PO DAILY Qty: 90 3RF roflumilast [Daliresp] 250 mcg tablet 250 mcg PO DAILY 30 Days Qty: 30 11RF fenofibrate 54 mg tablet 54 mg PO DAILY Qty: 90 3RF Repatha SureClick 140 mg/mL pen injector 140 mg subcut Q2W Qty: 2 11RF cholecalciferol (vitamin D3) 125 mcg (5,000 unit) capsule 125 mcg PO DAILY 90 Days Qty: 90 0RF amlodipine 10 mg tablet 10 mg PO DAILY Qty: 90 3RF Rx Instructions: Please call and reschedule appt for future refills. sumatriptan succinate 50 mg tablet 50 mg PO Q2-4H PRN (Reason: migraine headache) Qty: 10 0RF Rx Instructions: do not exceed 4 doses per 24 hrs tramadol 50 mg Tablet 50 mg PO BID PRN (Reason: Pain) albuterol sulfate 90 mcg/actuation HFA aerosol inhaler 1 inh inhalation QID PRN (Reason: shortness of breath or wheezing) Qty: 8.5 0RF albuterol sulfate 2.5 mg /3 mL (0.083 %) solution for nebulization 1 amp inhalation Q4H PRN (Reason: Wheezing) gabapentin 400 mg capsule 400 cap PO BID naloxone 4 mg/actuation spray,non-aerosol 1 spray intranasal ONCE PRN (Reason: Opioid Overdose) Tab-A-Colton Multivitamin w-iron 15 mg iron- 400 mcg tablet 1 tab PO DAILY acetaminophen 500 mg tablet 500 mg PO Q6H PRN (Reason: fever or pain) Qty: 14 0RF ibuprofen 600 mg tablet 600 mg PO Q8H PRN (Reason: fever or pain) Qty: 14 0RF ibuprofen 600 mg tablet 600 mg PO Q6H PRN (Reason: pain) Qty: 20 0RF ondansetron 4 mg tablet,disintegrating 4 mg PO Q8H PRN (Reason: nausea and vomiting) Qty: 20 0RF lorazepam [Ativan] 2 mg tablet 2 mg PO BEDTIME PRN (Reason: Anxiety) zolpidem [Ambien] 10 mg tablet 5 mg PO BEDTIME PRN (Reason: Anxiety) docusate sodium [Colace] 100 mg capsule 100 mg PO DAILY PRN (Reason: Constipation) (DME) CPAP Machine/Device Device See Rx Instructions .ROUTE .MEDSUPPLY Qty: 1 Rx Instructions: As directed duloxetine 60 mg capsule,delayed release(DR/EC) 60 mg PO DAILY fluticasone propionate 50 mcg/actuation spray,suspension 2 spray intranasal DAILY lisinopril 5 mg tablet 5 mg PO DAILY cetirizine 10 mg tablet 10 mg PO DAILY polyethylene glycol 3350 [Miralax] 17 gram powder in packet 17 g PO DAILY Qty: 30 5RF Trelegy Ellipta 200-62.5-25 mcg blister with device 1 inh inhalation DAILY 30 Days Qty: 60 12RF ibuprofen 600 mg tablet 600 mg PO Q8H PRN (Reason: pain) 14 Days Qty: 30 0RF (DME) nebulizers Misc See Rx Instructions .Route Rx Instructions: As directed doxycycline monohydrate 100 mg tablet 100 mg PO BID 14 Days Qty: 28 0RF Referrals: Ava Yap DO [Primary Care Provider, Internal Medicine] Fermin Vyas MD [Physician, Pulmonology] Print Language: Icelandic
--- NOTE | 2025-02-01 11:43 | ECG_ITS ---
Test Reason : CP Blood Pressure : */* mmHG Vent. Rate : 87 BPM Atrial Rate : 87 BPM P-R Int : 128 ms QRS Dur : 76 ms QT Int : 368 ms P-R-T Axes : 61 -8 87 degrees QTcB Int : 442 ms Normal sinus rhythm Cannot rule out Inferior infarct , age undetermined Cannot rule out Anterior infarct (cited on or before 23-Jun-2023) Abnormal ECG When compared with ECG of 18-Jun-2024 15:58, Minimal criteria for Inferior infarct are now Present Referred By: Anushka Skinner Electronically Signed By: CORDELL MONTAGUE
[2025-02-01 12:17] LABS: MANUAL DIFF FLAG NO
[2025-02-01 12:18] LABS: Hematocrit 40.0 % (37.0-47.0); Hemoglobin 13.9 g/dl (12.0-16.0); Imm Gran Abs Auto 0.01 X10*3/uL (0.00-0.03); Imm Gran Pct Auto 0.2 % (0.0-0.4); Lymphocytes Absolute Auto 2.2 X10*3/uL (1.2-4.9); Mean Corpuscular HGB Conc 34.8 g/dl (31.0-35.0); Mean Corpuscular Hemoglobin 31.1 pg (27.0-33.0); Mean Corpuscular Volume 89.5 fL (80.0-98.0); NRBC Abs Auto 0.000 X10*3/uL (0.0-0.012); NRBC Pct Auto 0.0 /100WBC (0.0-0.2); Platelet Count 216 X10*3/uL (160-400); Red Blood Count 4.47 X10*6/uL (4.20-5.50); White Blood Count 5.6 X10*3/uL (4.8-10.8)
[2025-02-01 12:34] LABS: Alanine Aminotransferase 30 U/L (0-31); Albumin Level 4.8 g/dL (3.5-5.0); Alkaline Phosphatase 79 U/L (39-117); Anion Gap 13 (12-20); Aspartate Amino Transferase 26 U/L (5-31); Blood Urea Nitrogen 13 mg/dL (9-16); Calcium 9.5 mg/dL (8.4-10.2); Carbon Dioxide 24 mmol/L (22-29); Chloride 107 mmol/L (96-108); Creatinine Clr Calc Pharmacy 96.0; Estimated Glomerular Filt Rate > 60; Lipase 16 U/L (8-78); Magnesium 1.9 mg/dL (1.6-2.6); Potassium 4.0 mmol/L (3.3-5.1); Sodium 140 mmol/L (135-145); Total Protein 7.7 g/dL (6.5-8.0)
[2025-02-01 12:44] LABS: Troponin-I High Sensitivity < 2.7 ng/L (<3.5-17.0)
[2025-02-01 12:57] LABS: Resp Syncy Virus RNA Qual PCR NEGATIVE (Negative); SARS COV2 PCR INHOUSE NEGATIVE (Negative)
[2025-02-01 15:43] VITALS: BP 140/87; PULSE 98; RESP 18; TEMP 37.1; O2SAT 97
== END 2025-02-01 15:50 | disposition home or self-care (01) ==
PROVIDERS: Physician Assistant Medical; Emergency Provider Student in an Organized Health Care Education/Training Program; PCP Family Medicine
DX: G47.33 Obstructive sleep apnea (adult) (pediatric) (principal); R04.2 Hemoptysis; R05.9 Cough, unspecified; I10 Essential (primary) hypertension; E78.5 Hyperlipidemia, unspecified; J45.909 Unspecified asthma, uncomplicated; Z87.891 Personal history of nicotine dependence; Z79.02 Long term (current) use of antithrombotics/antiplatelets; Z79.899 Other long term (current) drug therapy; Z03.818 Encounter for observation for suspected exposure to other biological agents ruled out
CPT/HCPCS: 71046; 80048; 80076; 83690; 83735; 84484; 85025; 87637; 93005; 99283

== ENCOUNTER → 2025-02-01 11:43 | Outpatient (BNV) | payer MEDICAID, SELFPAY | PROVIDERS: Emergency Provider Student in an Organized Health Care Education/Training Program; PCP Family Medicine; Visit Provider Internal Medicine | DX: R94.31 Abnormal electrocardiogram [ECG] [EKG] (principal); R07.9 Chest pain, unspecified | CPT/HCPCS: 93010 ==

== ENCOUNTER → 2025-02-01 11:44 | Outpatient (BNV) | payer MEDICAID, SELFPAY | PROVIDERS: Emergency Provider Student in an Organized Health Care Education/Training Program; PCP Family Medicine; Visit Provider Radiology Diagnostic Radiology | DX: R07.9 Chest pain, unspecified (principal) | CPT/HCPCS: 71046 ==

== ENCOUNTER 2025-02-10 08:55 | Outpatient (AMB) | payer MEDICAID, SELFPAY ==
[2025-02-10 09:03] VITALS: BP 140/74; PULSE 93; O2SAT 96; BMI 44.3
--- NOTE | 2025-02-10 09:03 | A.OFFVIS_ITS ---
Vital Signs 02/10/25 09:03 Height 5 ft Weight 227 lb 1.218 oz BMI 44.3 BP 140/74 H Blood Pressure Location Lt brachial Position Sitting Pulse 93 Pulse Source Pulse Oximeter Pulse Oximetry (%) 96 Oxygen Delivery Method Room Air Intake Visit Reasons: Asthma Accompanied by: Self / Same As Patient Allergies loratadine (From CLARITIN) Allergy (Mild, Verified 02/10/25 09:06) CHILLS AND DIFF BREATHING HPI Comments Details: The patient is a 54 mxw-rkcj-oit woman with a known history of asthma in add ion to obstructive sleep apnea. Patient was having significant daytime drowsiness And in 2016 she did undergo a sleep study demonstrating severe sleep apnea. She return for titration study documented that she required BiPAP . The patient was set up through [facility] [place]. She was getting supplies regularly. She has been using her BiPAP ever since with very good adherence. She uses a BiPAP more than 4 hours a night. at some point she is soft receiving supplies. She is not sure why does been the issue. She does have a nasal mask. She wonders if she do better with a fullface mask. I did have an F 30 available for trial. Therefore she will try the fullface mask and I will request supplies from her [employer] company. In the meantime the patient has been taking multiple inhalers for significant asthma. It appears that the inhalers have been helpful but she Continues to be symptomatic. Therefore will optimize her respiratory therapy and also simplify by switching her over to Trelegy 200. 08/12/2021 the patient is here for a pulmonary follow-up visit. She is complaining of worsening cough and chest congestion. She has been like this for about 3-4 days. She was tested negative for COVID-19 apparently. She continues use the Flovent. The Trelegy inhaler was not covered. Therefore, will add a long-acting beta at agonist and long-acting muscarinic antagonists combination inhaler to her regimen. Hopefully this will help her with her chest tightness. In the meantime will treated for bronchitis with Z-Jan. If the patient is not better or if she worsens then she can consider starting the prednisone taper. In the meantime she has not been using her PAP therapy. She states the pressures are now too high and she cannot tolerated well. Therefore I did ask her to bring machine into for the next visit so we can adjust the pressures. Patient is now being evaluated for her surgery that she has for the growth on her ovary. This is going to happen at [facility] am hopeful she can have this done soon. 11/19/2021 the patient is here for pulmonary follow-up visit. Her breathing has been about the same. She could not tolerate the Bevespi secondary to tachycardia. Therefore switch over to Trelegy. Hopefully she can tolerate that better. In the meantime she is using her BiPAP. However, feels like the pressures are too high and is hard for her to tolerated. Therefore I did decrease the pressure from 18/14 to 15/12. I am hopeful that she can tolerate this better. Will continue to titrated down accordingly as long as her apnea score stay within normal. Her AHI was below 2 which is reassuring. In addition to that the patient is complaining multiple ailments. She is complaining the lower left extremity is swollen and painful. I did look at it and it looked like her veins were distended and was concern for a DVT. Therefore will have her undergo a Doppler study to rule out DVT. 01/19/2022 the patient is here for a preop evaluation. Overall the patient has been feeling well from a respiratory status. She continues use her respiratory medications she size she uses BiPAP also with good compliance. The BiPAP therapy continues to be affecting beneficial. She has not had any issues with wheezing or shortness of breath requiring additional medications. She did have a swelling of her upper extremity where we had requested an ultrasound ruled out DVT. however the area still affected with likely has some superficial phlebitis. The patient is scheduled to undergo gynecological surgery. This point she optimize pulmonary standpoint to proceed with surgery and anesthesia. 07/15/2022 the patient is here for a pulmonary follow-up visit. Overall the patient is doing well. She does complaint of productive cough. The cough seems to be chronic for her. She has always bringing up phlegm. It is hard for her to do so. She does continue to use the Trelegy with partial improvement of her symptoms. She is looking to see if any other medicines can provided in order to help with chronic bronchitis. In the meantime she did bring her BiPAP. The BiPAP still set at 15/12. She is tolerating it well and her AHI is to. She the patient is using it well more than 4 hours a night. The therapy has been affecting beneficial when she is going to continue with current settings. She has been getting supplies through her [employer]. The patient will go ahead and start Daliresp for her chronic bronchitis. I will also give her short course of azithromycin in case she has any infectious process as well. 07/18/2023 the patient is here for a pulmonary follow-up visit. She has not recovered from COVID-19. She had a couple weeks ago. She did not take Paxlovid. She did develop worsening respiratory complaints. The patient also has been complaining of a persistent cough productive in nature with yellow sputum. Moderate severity. Also has been complaining of left-sided flank discomfort. But typically a little lower than her flank. No pleuritic component to her pain. The patient has been using her BiPAP. The BiPAP therapy continues to be affecting beneficial she does use it every night for more than 4 hours. We also talked about the Daliresp. It has not clear if she is taking it for the chronic bronchitis. She is going to assess her medications at home. As far as her current respiratory complaints the patient likely has a postviral bacterial bronchitis lower respiratory infection so therefore will start her on doxycycline. If the patient is no better she will come in for chest x-ray and call the office. 01/09/2024 the patient is here for pulmonary follow-up visit. The patient continues to have significant dyspnea on exertion. Moderate severity with minimal activity. She feels very breathless. She also uses her respiratory medications and does not have any significant relief. She is on maximum respiratory therapy. her respiratory exam is also reassuring. We did go for brief walking oximetry and the patient's heart rate quickly increase to about 120 beats per minute. Oxygen was stable 98%. Therefore likely that the patient has shortness of breath has to do more with the increased heart rate. Will have her undergo an echocardiogram. She is also having difficulty swallowing. Sometimes she has food stuck in her throat and then she has a hard time breathing. Therefore will go ahead and request a barium swallow as well. She will continue her current respiratory therapy. In the meantime she does continue to use her PAP therapy every night. The PAP therapy continues to be af fecting beneficial. She does use it for more than 4 hours a night. 02/10/2025 the patient is here for sick visit. The patient had been in usual state health until for the last week when she started developing worsening cough. Initially phlegm in his started developing blood-tinged sputum. It became worse therefore she went to the ER last week. She will had an x-ray which I personally reviewed without any acute disease. She also had blood work which was reassuring. The patient was discharged with conservative management. She has been noticing that she is still coughing up some blood. She is also complaining of some right-sided flank discomfort. Some pleuritic component to it. Msww-de-oevilquc severity. Denies any fevers or chills. Denies any sick contacts. My exam she does have some diminished breath sounds in the right base. Therefore will go ahead and treat her for potentially beginning some pneumonia. If the patient is not better or if she worsens she will definitely need additional imaging such as CT scan of the chest. She had a CAT scan back in 2022 which I personally reviewed demonstrating normal lungs. She did have some granulomas likely from an old infection. The patient also continues use her BiPAP. BiPAP therapy has been affecting beneficial. She has been use it more than 4 hours. Will plan to follow-up in the fall to make sure that she is recovering well. And again if she is not doing well and if her symptoms worsen she is going to be calling for further recommendations. [facility] Medical History Epigastric pain Pre-op chest exam Chronic restrictive lung disease NAM treated with BiPAP Asthma-COPD overlap syndrome Sleep apnea Fibromyalgia Hypertension Fatty liver Gall bladder polyp Acid reflux Obesity (BMI 30-39.9) Coronary artery disease Hyperlipidemia Surgical History History of partial hysterectomy History of esophagogastroduodenoscopy History of endometrial ablation Hx of tubal ligation History of cardiac cath Family History Paternal Grandfather No problems noted. Father History of cancer Lung cancer Mother Heart disease Asthma Social History Household Members: Family and Children Housing: House Do you presently have visiting nurse or other home services: No Alcohol intake: never Patient Tobacco Use Status: Former Tobacco user Tobacco use type: Cigarette Years Smoked: 5 years Second Hand Smoke Exposure: No service: No Current occupational status: disabled Sexual orientation: Straight/Heterosexual Gender identity: Female Review of Systems Const Denies weight gain and Denies weight loss ENT Reports no additional complaints, Denies dysphagia and Denies odynophagia Card Reports no additional complaints, Reports palpitations and Reports dyspnea on exertion Resp Reports change in phlegm color, Reports chest congestion, Reports cough, Reports hemoptysis, Reports pain on inspiration, Reports pain with cough and Reports dyspnea on exertion GI Denies belching, Denies melena, Reports bloating, Denies dysphagia, Denies excessive flatus, Denies dyspepsia, Denies heartburn, Denies diarrhea, Denies loose stools, Denies nausea, Denies odynophagia and Denies vomiting Reports no additional complaints Musc Reports no additional complaints and Reports myalgias Skin/Breast Denies rash Neuro Reports no additional complaints Psych Reports no additional complaints Endo Reports no additional complaints and Reports palpitations Physical Exam Vital Signs: Last Vital Signs Pulse 93 02/10/25 09:03 BP 140/74 H 02/10/25 09:03 Pulse Ox 96 02/10/25 09:03 Oxygen Delivery Method Room Air 02/10/25 09:03 BMI result Body Mass Index 44.3 Const General: alert Neck Neck: Yes normal visual inspection, Yes full ROM and Yes no lymphadenopathy Chest Chest palpation & inspection: normal inspection of the chest Resp Effort & Inspection: normal respiratory effort Auscultation: no crackles, no rales, no rhonchi, no wheezes and diminished lung sounds Cardio Rate: regular rate Rhythm: regular rhythm Heart sounds: S1 normal heart sound present and S2 normal heart sound present GI Palpation (GI): Soft to palpation and nontender Auscultation: normal bowel sounds Skin General skin exam: rashes and/or lesions noted Assessment & Plan Assessment & Plan (1) Asthma-COPD overlap syndrome: Code(s): J44.9 - Chronic obstructive pulmonary disease, unspecified Category: Medical (2) NAM treated with BiPAP: Code(s): G47.33 - Obstructive sleep apnea (adult) (pediatric) Category: Medical (3) Chronic restrictive lung disease: Code(s): J98.4 - Other disorders of lung Category: Medical (4) Hemoptysis: Code(s): R04.2 - Hemoptysis Category: Medical Plan Continue BIPAP 09/06 continue Trelegy continue singulair LAURE as needed start ZTX/Vantin call if hemoptysis is no better or worsens Follow-up in 3-4 months Medications: New cefpodoxime must administer with a meal/food 200 mg PO BID 16 tabs 0RF 8 days azithromycin 500 mg PO DAILY 3 tabs 0RF 3 days Coding Level of Care Code Est Pt Level 4 (94910) Diagnoses Asthma-COPD overlap syndrome J44.9 NAM treated with BiPAP G47.33 Chronic restrictive lung disease J98.4 Hemoptysis R04.2 Time Spent (min) 17
--- OUTSIDE RECORDS SUMMARY | 2025-02-10 09:26 | XMS_ITS | Clinical Summary ---
Author Organization [facility] Address [address] [place] [address] Care Team Providers Care Street Flusher Driver Name Role Phone Pcp, No Primary Care [...] season) 2024, 10/03/2020 Influenza Vaccine 01/24/2025 Insurance [facility] Care Teams Street Flusher Driver Relationship Specialty Start Date End Date Pcp, No PCP - General General Medicine 08/12/22
--- OUTSIDE RECORDS SUMMARY | 2025-02-10 09:26 | XMS_ITS | Encounter Summary ---
Author Organization [employer] Address [address] [place] [address] Care Team Providers Care Business Rules Analyst Name Role Phone Ava Yap DO Primary Care Provider + [phone] Reason for Visit * Reason Comments Med Refill Encounter Details Date Type Department Care Team (Late st Contact Info) Description 11/14/2022 Refill [facility] MEDICINE [address] [place], [place] [phone] Ava Yap DO [address] [place], [place] [phone] Anxiety Social History Tobacco Use Types Packs/Day [...] Department Care Team (Late Contact Info) Description 03/03/2025 1:30 PM EDT Clinical Support [facility] MEDICINE [address] [place], [place] [phone] Denisha Cross RN 06/04/2025 2:30 PM EST Office Visit [facility] OPTOMETRY [address] [place], [place] [phone] Michaelle Goodman, OD [address] [place] [address] documented as of this encounter Visit Diagnoses Diagnosis Anxiety Anxiety state, unspecified documented in this encounter Additional Health Concerns Assessment Noted Time PHQ-9 Depression Total Score: 0 07/27/19 11:46 AM EST documented as of this encounter Care Teams Business Rules Analyst Relationship Specialty Start Date End Date Ava Yap DO [address] [place] [address] PCP - General Family Medicine 03/28/11 Avelina Hodges InterventionistBlanket Inspector 04/21/23 documented as of this encounter
== END 2025-02-10 09:22 | disposition home or self-care (01) ==
PROVIDERS: PCP Family Medicine; Visit Provider Hospitalist
DX: J44.9 Chronic obstructive pulmonary disease, unspecified (principal); G47.33 Obstructive sleep apnea (adult) (pediatric); J98.4 Other disorders of lung; R04.2 Hemoptysis
CPT/HCPCS: 99214

== ENCOUNTER → 2025-02-10 08:55 | Outpatient (BNVA) | payer MEDICAID, SELFPAY | PROVIDERS: PCP Family Medicine; Visit Provider Hospitalist | DX: J98.4 Other disorders of lung (principal); J44.9 Chronic obstructive pulmonary disease, unspecified; G47.33 Obstructive sleep apnea (adult) (pediatric); R04.2 Hemoptysis | CPT/HCPCS: 99212 ==

== ENCOUNTER 2025-02-19 15:05 | Outpatient (AMB) | payer MEDICAID, SELFPAY ==
--- OUTSIDE RECORDS SUMMARY | 2025-02-18 09:00 | XMS_ITS | Continuity of Care Document ---
Author Organization [facility] Address [address] [place] [address] [address] [place] [phone] Phone Care Team Providers Care Rail Bender Name Role Phone Homero AGUILAR, CORY DALY Robert Unavailable U navailable Advance Directives Directive Yes / No Effective Date File Name No Information Encounters Encounter Description Practice Location Reason(s) For Visit Diagnoses Date Provider Providers Copied on Encounter [facility], [address] [place] [address] [address], [place], [id number], tel:[phone] [facility] No Information 5 Homero AGUILAR, CORY DALY. [address] [place] [address], [id number] , [place]. tel:[phone] Referring Provider: DOES NOT HAVE REF. Family History Family Member Type Diagnosis Age At Onset No Information Payers Payer name Insurance type Covered constitution party ID Authoriza tion(s) No Information Social History Type Description Quantity Date Captured Comments Sex Female Smoking Status No Information Chief Complaint And Reason For Visit No Information Reason For Referral Reason For Referral No Information History Of Present Illness Encounter Date Complaint History Of Prese nt Illness No Information Functional Status Date Functional Assessmen t No Information Instructions Date Instruction Additional Infor mation No Information Assessments Type Assessment Date No Information Patient Care Teams Name Effective Dates (start - stop) Status Members No Information
[2025-02-19 16:14] VITALS: BP 130/64; PULSE 97; BMI 44.3
--- NOTE | 2025-02-19 16:14 | A.OFFVIS_ITS ---
Vital Signs 02/19/25 16:14 Height 5 ft Weight 226 lb 10.163 oz BMI 44.3 BP 130/64 Blood Pressure Location Lt radial Position Sitting Pulse 97 Pulse Source Monitor Intake Visit Reasons: r/s 08/28-11/25/24 6 mos followup Intake Note: r/s 6 mth f/up Gi Physician Required: Yes Gi Physician Name: voyce/luxembourgish/ Accompanied by: Self / Same As Patient Allergies loratadine (From CLARITIN) Allergy (Mild, Verified 02/10/25 09:06) CHILLS AND DIFF BREATHING Medication List - Last Reconciled 02/22/25 by Ab Gallegos MD acetaminophen 500 mg PO Q6H PRN albuterol sulfate 90 mcg/actuation 1 inh inhalation QID PRN albuterol sulfate 1 amp inhalation Q4H PRN amlodipine 10 mg PO DAILY azithromycin 500 mg PO DAILY 3 days cefpodoxime 200 mg PO BID 8 days cetirizine 10 mg PO DAILY cholecalciferol (vitamin D3) 125 mcg PO DAILY 90 days CPAP (CPAP Machine/Device) As directed docusate sodium (Colace) 100 mg PO DAILY PRN duloxetine 60 mg PO DAILY evolocumab (Repatha SureClick) 140 mg subcut Q2W ezetimibe 10 mg PO DAILY famotidine 40 mg PO BEDTIME fenofibrate 54 mg PO DAILY fluticasone propionate 50 mcg/actuation 2 sprays intranasal DAILY lpevutngiye-fbmmeshdd-pbucenuv 200-62.5-25 mcg (Trelegy Ellipta) 1 inh inhalation DAILY 30 days gabapentin 400 caps PO BID ibuprofen 600 mg PO Q6H PRN lisinopril 5 mg PO DAILY lorazepam (Ativan) 2 mg PO BEDTIME PRN montelukast (Singulair) 10 mg PO BEDTIME 30 days multivit-iron sulf-folic acid 15 mg iron- 400 mcg (Tab-A-Colton Multivitamin w- iron) 1 tab PO DAILY naloxone 4 mg/actuation 1 spray intranasal ONCE PRN nebulizers As directed ondansetron 4 mg PO Q8H PRN polyethylene glycol 3350 (Miralax) 17 grams PO DAILY roflumilast (Daliresp) 250 mcg PO DAILY 30 days rosuvastatin 40 mg PO DAILY sennosides (Natural Senna Laxative) 8.6 mg PO BEDTIME sumatriptan succinate 50 mg PO Q2-4H PRN tramadol 50 mg PO BID PRN umeclidinium-vilanterol 62.5-25 mcg/actuation (Anoro Ellipta) 1 inh inhalation DAILY zolpidem (Ambien) 5 mg PO BEDTIME PRN HPI Comments Details: 54-year-old female here for follow-up. She had stress testing done for chest pain. Her perfusion imaging was normal. She was complaining of palpitations and she underwent Holter monitoring. This showed no significant arrhythmia but did show frequent sinus tachycardia. She is on Repatha for hyperlipidemia. She has statin intolerance. She has been experiencing sharp stabbing chest pains with ambulation off and on. She also had 1 hour episode of chest discomfort for which she presented to [facility] on 12/25/2021. Her high sensitivity troponin level was less than 3.5 x 2. EKG showed somewhat poor R-wave progression and nonspecific T-wave changes. 02/28/2024: She is here for follow-up. Again complaining of palpitations and anxiety. She also gets out of breath with activity. She is morbidly obese and is considering bariatric surgery. We discussed about weight loss and she will discuss with primary care physician about Ozempic. 02/19/25: Here for follow-up. She is saying that she is recovering from bad case of bronchitis. She received antibiotics but still has shortness of breath and cough with some congestion. She is going to follow up with pulmonology for this. [facility] Medical History Epigastric pain Pre-op chest exam Chronic restrictive lung disease NAM treated with BiPAP Asthma-COPD overlap syndrome Sleep apnea Fibromyalgia Hypertension Fatty liver Gall bladder polyp Acid reflux Obesity (BMI 30-39.9) Coronary artery disease Hyperlipidemia Surgical History History of partial hysterectomy History of esophagogastroduodenoscopy History of endometrial ablation Hx of tubal ligation History of cardiac cath Family History Paternal Grandfather No problems noted. Father History of cancer Lung cancer Mother Heart disease Asthma Social History Household Members: Family and Children Housing: House Do you presently have visiting nurse or other home services: No Alcohol intake: never Patient Tobacco Use Status: Former Tobacco user Tobacco use type: Cigarette Years Smoked: 5 years Second Hand Smoke Exposure: No service: No Current occupational status: disabled Sexual orientation: Straight/Heterosexual Gender identity: Female Review of Systems Const Denies chills, Denies fatigue, Denies fever(s), Denies frequent falls, Denies weakness, Denies weight gain and Denies weight loss ENT Denies dizziness Card Reports chest pain, Reports chest pain at rest, Reports chest pain with activity, Denies leg edema, Denies lightheadedness, Denies palpitations, Denies dyspnea and Denies dyspnea on exertion Resp Denies cough, Denies dyspnea and Denies dyspnea on exertion GI Denies hematochezia Musc Denies abnormal gait, Denies muscle weakness, Denies numbness, Denies radiating pain into limb and Denies tingling Neuro Denies abnormal gait, Denies dizziness, Denies frequent falls, Denies numbness, Denies tingling and Denies weakness Endo Denies fatigue and Denies palpitations Physical Exam Vital Signs: Last Vital Signs Pulse 97 02/19/25 16:14 BP 130/64 02/19/25 16:14 BMI result Body Mass Index 44.3 GENERAL APPEARANCE: in no acute distress, pleasant. Obese. NECK: no carotid bruit, no jugular venous distention. SKIN: no suspicious lesions, warm and dry. HEART: no murmurs, regular rate and rhythm. LUNGS: clear to auscultation bilaterally. ABDOMEN: soft, nontender. EXTREMITIES: no edema. PERIPHERAL PULSES: equal. NEUROLOGIC: No gross deficits, AAO X 3 Office Procedures EKG Details: Sinus rhythm 97 beats per minute, low voltage, can not rule out inferior infarct, QTC 429 milliseconds. [id number], Complete Assessment & Plan Assessment & Plan (1) Obesity (BMI 30-39.9): Code(s): E66.9 - Obesity, unspecified Category: Medical (2) Heart palpitations: Code(s): R00.2 - Palpitations Category: Medical (3) Hypertension: Code(s): I10 - Essential (primary) hypertension Category: Medical Qualifiers: Hypertension type: essential hypertension Qualified Code(s): I10 - Essential (primary) hypertension Plan Pleasant 54 year female who is here for follow-up. She has background history of hypertension and hyperlipidemia. Blood pressure is well controlled currently on amlodipine 10 mg and lisinopril. She previously had Holter monitoring which was normal. She continues to get some anxiety and palpitations. She has obesity and dyspnea. She is considering bariatric surgery. She has dyspnea after recent episode of bronchitis. She will be following with pulm. Thank you for allowing me to participate in the care of your patient. Please feel free to contact me if you have any questions. Coding Level of Care Code Est Pt Level 3 (57945) Diagnoses Obesity (BMI 30-39.9) E66.9 Heart palpitations R00.2 Hypertension I10 Hypertension type: essential hypertension CPT Codes EKG - CPT: 67149-[id number], Complete ([id number])
--- OUTSIDE RECORDS SUMMARY | 2025-02-19 16:22 | XMS_ITS | Encounter Summary ---
Author Organization [employer] Address [address] [place] [address], [place] [address] Care Team Providers Care Cloth Stretcher Name Role Phone Ava Yap DO Primary Care Provider + [phone] Encounter Details Date Type Department Care Team (Late Contact Info) Description 07/19/2022 Telephone [facility] MEDICINE [address] [place] [phone] Ava Yap DO [address] [place], [place] [phone] Social History Tobacco Use Types Packs/Day Years [...] Description 03/03/2025 1:30 PM EDT Clinical Support [facility] MEDICINE [address] [place], [place] [phone] Denisha Cross RN 06/04/2025 2:30 PM EST Office Visit [facility] OPTOMETRY [address] [place], [place] [phone] Michaelle Goodman OD [address] [place], [place] [phone] documented as of this encounter Visit Diagnoses Not on filedocumented in this encounter Care Teams Cloth Stretcher Relationship Specialty Start Date End Date Ava Yap DO [address] [place] [phone] PCP - General Family Medicine 03/28/11 Avelina Hodges [employer] AssistantTiger Machine Operator 04/21/23 documented as of this encounter
--- OUTSIDE RECORDS SUMMARY | 2025-02-19 16:22 | XMS_ITS | Encounter Summary ---
Author Organization [employer] Address [address] [place] [address] 7 [place] [address] Care Team Providers Care Correctional Facility Nurse Name Role Phone Ava Yap DO Primary Care Provider + [phone] Reason for Visit * Reason Comments Med Refill Encounter Details Date Type Department Care Team ([facility] st Contact Info) Description 07/04/[address] [facility] MEDICINE [address] [place], [place] [phone] Ava Yap DO 230 [place], [place] [phone] Anxiety; Chronic bilateral low back pain, unspecified [...] Description 03/03/2025 1:30 PM EDT Clinical Support [facility] MEDICINE 230 [place] [address] Denisha Cross, DEVI 06/04/2025 2:30 PM EST Office Visit [facility] OPTOMETRY [address] [place] [address] Rex, Michaelle, OD 230 [place] [address] documented as of this encounter Visit Diagnoses Diagnosis Anxiety Anxiety state, unspecified Chronic bilateral low back pain, unspecified whether sciatica present documented in this encounter Additional Health Concerns Assessment Noted Time PHQ-9 Depression Total Score: 5 06/22/20 10:59 AM EST documented as of this encounter Care Teams Correctional Facility Nurse Relationship Specialty Start Date End Date Ava Yap DO 230 [place] [address] PCP - General Family Medicine 03/28/11 Avelina Hodges Mill TurnerStem Frazer 04/21/23 documented as of this encounter
--- OUTSIDE RECORDS SUMMARY | 2025-02-19 16:22 | XMS_ITS | Encounter Summary ---
Author Organization [employer] Address [address] [place] [address] 7 [place] [address] Care Team Providers Care Radiation Therapy Technician Name Role Phone Ava Yap DO Primary Care Provider + [phone] Reason for Visit * Reason Onset Date Comments Prior Authorization 10/16/2024 Encounter Details Date Type Department Care Team (Late st Contact Info) Description 10/16/2024 Telephone [facility] CHC MED & PEDS [address] [place] [address] Ava Yap DO 230 [place] [address] Prior Authorization Social History Tobacco Use Types [...] Description 03/03/2025 1:30 PM EDT Clinical Support [facility] MEDICINE 230 [place] [address] Denisha Cross RN 06/04/2025 2:30 PM EST Office Visit [facility] OPTOMETRY [address] [place] [address] Rex, Michaelle, OD 230 [place] [address] documented as of this encounter Visit Diagnoses Not on filedocumented in this encounter Additional Health Concerns Assessment Noted Time PHQ-9 Depression Total Score: 5 06/22/20 10:59 AM EST documented as of this encounter Care Teams Radiation Therapy Technician Relationship Specialty Start Date End Date Ava Yap DO 230 [place] [address] PCP - General Family Medicine 03/28/11 Avelina Hodges Computational Theory ScientistClass C Truck Driver 04/21/23 documented as of this encounter
--- OUTSIDE RECORDS SUMMARY | 2025-02-19 16:22 | XMS_ITS | Encounter Summary ---
Author Organization [employer] Address [address] [place] [address] 7 [place] [address] Care Team Providers Care Editor At Large Name Role Phone Ava Yap DO Primary Care Provider + [phone] Reason for Visit * Reason Comments Med Refill Encounter Details Date Type Department Care Team ([facility] st Contact Info) Description 03/22/2024 Refill [facility] MEDICINE 230 [place], [place] [phone] Ava Yap DO 230 [place], [place] [phone] Chronic low back pain, unspecified back pain [...] Description 03/03/2025 1:30 PM EDT Clinical Support [facility] MEDICINE 230 [place] [address] Denisha Cross, DEVI 06/04/2025 2:30 PM EST Office Visit [facility] OPTOMETRY [address] [place] [address] Michaelle Goodman, OD 230 [place] [address] documented as of this encounter Visit Diagnoses Diagnosis Chronic low back pain, unspecified back pain laterality, unspecified whether sciatica present documented in this encounter Additional Health Concerns Assessment Noted Time PHQ-9 Depression Total Score: 5 06/22/20 10:59 AM EST documented as of this encounter Care Teams Editor At Large Relationship Specialty Start Date End Date Ava Yap DO [address] [place] [address] PCP - General Family Medicine 03/28/11 Avelina Hodges Linux Systems AnalystChief Technician X Ray 04/21/23 documented as of this encounter
--- OUTSIDE RECORDS SUMMARY | 2025-02-19 16:22 | XMS_ITS | Encounter Summary ---
Author Organization [employer] Address [address] [place] [address] 7 [place] [address] Care Team Providers Care Chassis Engineer Name Role Phone Ava Yap DO Primary Care Provider + [phone] Reason for Visit * Reason Comments Med Refill Encounter Details Date Type Department Care Team ([facility] st Contact Info) Description 07/05/2023 Refill [facility] MEDICINE 230 [place], [place] [phone] Ava Yap DO 230 [place], [place] [phone] Chronic bilateral low back pain, unspecified whether [...] Description 03/03/2025 1:30 PM EDT Clinical Support [facility] MEDICINE 230 [place] [address] Denisha Cross, DEVI 06/04/2025 2:30 PM EST Office Visit [facility] OPTOMETRY [address] [place] [address] Rex, Michaelle, OD 230 [place] [address] documented as of this encounter Visit Diagnoses Diagnosis Chronic bilateral low back pain, unspecified whether sciatica present Anxiety Anxiety state, unspecified documented in this encounter Additional Health Concerns Assessment Noted Time PHQ-9 Depression Total Score: 5 06/22/20 10:59 AM EST documented as of this encounter Care Teams Chassis Engineer Relationship Specialty Start Date End Date Ava Yap DO 230 [place] [address] PCP - General Family Medicine 03/28/11 Avelina Hodges Offal WorkerLoop Puller 04/21/23 documented as of this encounter
--- OUTSIDE RECORDS SUMMARY | 2025-02-19 16:22 | XMS_ITS | Encounter Summary ---
Author Organization [employer] Address [address] [place] [address] 7 [place] [address] Care Team Providers Care Recovery Room Nurse Name Role Phone Ava Yap DO Primary Care Provider + [phone] Encounter Details Date Type Department Care Team ([facility] Contact Info) Description 07/18/[address] [facility] CHC MED & PEDS [address] [place], [place] [phone] Ava Holt LPN Social History Tobacco Use [...] Description 03/03/2025 1:30 PM EDT Clinical Support [facility] MEDICINE 230 [place] [address] Denisha Cross RN 06/04/2025 2:30 PM EST Office Visit [facility] OPTOMETRY [address] [place] [address] Michaelle Goodman, OD 230 [place] [address] documented as of this encounter Procedures Procedure [...] AM EST) Influenza A PCR NEGATIVE Negative [facility] Influenza B PCR NEGATIVE Negative [facility] Resp Syncy Virus RNA Qual PCR NEGATIVE Negative [facility] SARS COV2 PCR NEGATIVE Negative [facility] SARS/Flu/RSV Note See Note [facility] Comment:All test results mus t [...] use by authorized laboratories.Testing performed on the PANOSOL GeneXpert utilizingreal-time RT-PCR.All SARS CoV2 and positive influenza A/B results arereported to [facility]. 08/12/2022 10:3 2 AM EST 08/12/2022 10:37 AM EST [facility] Exter nal Provider LAB MICROBIOLOGY - GENERAL ORDERABLES Final Result Performing Organization Address [facility]/ZIP Co de Phone Number [facility] [address] [place] [address] [phone] * Sed Rate by Modified Westergren (08/12/2022 10:32 AM EST) Pathologist [facility] Erythrocyte Sedimentation Rate 16 0 - 20 MM/HR [facility] Comment:Patients with polycy themia and many hemoglobin abnormalitiesmay have depressed sed rates whereas patients with anemiamay have elevated sed rates. 08/12/2022 10:3 2 AM EST 08/12/2022 10:37 AM EST [facility] External Provider LAB BLO OD ORDERABLES Final Result Performing Organization Address [facility] Co de Phone Number [facility] [address] [place] [address] [phone] * C-reactive Protein (08/12/2022 10:32 AM EST) Pathologist [facility] C Reactive Protein 0.41 < or = 0.50 mg/dL [facility] 08/12/2022 10:3 2 AM EST 08/12/2022 10:37 AM EST [facility] External Provider LAB BLO OD ORDERABLES Final Result Performing Organization Address [facility] Co de Phone Number [facility] [address] [place] [address] [phone] * (ABNORMAL) Basic Metabolic Panel (08/12/2022 10:32 AM EST) Pathologist [facility] Sodium 142 135 - 145 mmol/L [facility] Potassium 4.3 3.3 - 5.1 mmol/L [facility] Chloride 109(H) 96 - 108 mmol/L [facility] Carbon Dioxide 23 22 - 29 mmol/L [facility] Anion Gap 14 12 - 20 [facility] Urea Nitrogen (BUN) 11 9 - 16 mg/dL [facility] Creatinine, Serum 0.76 0.5 - 1.4 mg/dL [facility] Creatinine Clr Calc Pharmacy 92.0 [facility] Comment:Provided height and weight: 149.86 cm,99.79 kg.eGFR (calculated from the MDRD study equation) and eCrCl(calculated from the Cockcroft-Gault equation) are based ondifferent parameters and may not yield comparable results.If eCrCl result is absurd, please check patient'sheight/weight. Estimated Glomerular Filt Rate >60 [facility] Comment:NOTE: For -Am erican individuals, multiply the result by 1.210.Chronic Kidney Disease: Estimated GFR < 60 mL/min/1.97s3Knbcpq Kidney Disease: Estimated GFR < 15 mL/min/1.73m2 Glucose 113 60 - 115 mg/dL [facility] Calcium 9.7 8.4 - 10.2 mg/dL [facility] 08/12/2022 10:3 2 AM EST 08/12/2022 10:37 AM EST us [facility] External Provider LAB BLO OD ORDERABLES Final Result [facility] [address] [place], [place] [phone] * (ABNORMAL) CBC auto differential (08/12/2022 10:32 AM EST) White Blood Count 5.9 4.8 - 10.8 X10*3/uL [facility] Red Blood Count 4.44 4.20 - 5.50 X10*6/uL [facility] Hemoglobin 13.4 12.0 - 16.0 g/dl [facility] Hematocrit 40.5 37.0 - 47.0 % [facility] Mean Corpuscular Volume 91.2 80.0 - 98.0 fL [facility] Mean Corpuscular Hemoglobin 30.2 27.0 - 33.0 pg [facility] Mean Corpuscular HGB Conc 33.1 31.0 - 35.0 g/dl [facility] Red Cell Distribution Width 13.2 11.0 - 16.0 % [facility] Platelet Count 252 160 - 400 X10*3/uL [facility] Mean Platelet Volume 10.7 9.4 - 12.3 fL [facility] Neutrophils Percent Auto 49.0 45 - 73 % [facility] Imm Gran Pct Auto 0.2 0.0 - 0.4 % [facility] Lymphocytes Percent Auto 40.9(H) 20 - 40 % [facility] Monocytes Percent Auto 8.8 2 - 11 % [facility] Eosinophils Percent Auto 0.8 0 - 4 % [facility] Basophils Percent Auto 0.3 0 - 2 % [facility] NRBC Pct Auto 0.0 0.0 - 0.2 /100WBC [facility] Neutrophils Absolute Auto 2.9 2.0 - 8.3 x10*3/uL [facility] Imm Gran Abs Auto 0.01 0.00 - 0.03 X10*3/uL [facility] Lymphocytes Absolute Auto 2.4 1.2 - 4.9 X10*3/uL [facility] Monocytes Absolute Auto 0.5 0.1 - 1.2 X10*3/uL [facility] Eosinophils Absolute Auto 0.1 0.0 - 0.4 X10*3/uL [facility] Basophils Absolute Auto 0.0 0.0 - 0.2 X10*3/uL [facility] NRBC Abs Auto 0.000 0.0 - 0.012 X10*3/uL [facility] 08/12/2022 10:3 2 AM EST 08/12/2022 10:37 AM EST us [facility] External Provider LAB BLO OD ORDERABLES Final Result [facility] [address] [place] [address] [phone] * Strep A Nucleic Acid (08/12/2022 9:10 AM EST) IDNOW SERIAL# [id number] [facility] Strep A Nucleic Acid Negative Negative [facility] Comment:All test results mus t be correlated with clinical findings.This test has not been evaluated for monitoring treatment ofinfection.Additional follow-up testing using the culture method isrequired if the result is negative and clinical symptomspersist, or in the event of an acute rheumatic feveroutbreak. 08/12/2022 9:10 AM EST 08/12/2022 9:12 AM EST us [facility] Exter nal Provider LAB MICROBIOLOGY - GENERAL ORDERABLES Final Result Performing Organization Address City/State/[facility] Co de Phone Number [facility] [address] [place] [phone] * CT Chest w/o Contrast (08/09/2022 9:07 AM EST) Anatomical Region Laterality Modality Body, Chest Computed Tomogra phy 08/09/2022 9:07 AM EST Narrative 08/13/2022 11:33 AM EST [address] [address] [address] Scan Report Signed Patient: Ximena Xiong MR#: [id number] : 1970 Acct:[id number] Age/Sex: 51 / F ADM Date: 08/09/22 Loc: HO.CT Attending Dr: Ava Yap DO Ordering Physician: Ava Yap DO Date of Service: 08/09/22 Procedure(s): CT chest wo IV con Accession Number(s): [id number] cc: Ava Yap DO EXAMINATION: CT CHEST [...] in OV> 08/13/22 1131 DD/ 0907 TD/TT: Refractory Products Supervisor: SS Procedure Note Donotuseinterpreter, Image - 08/13/[address] [address] [address] Scan Report Signed Patient: Heath XiongR#: [id number] : 1970Acct:[id number] Age/Sex: 51 / FADM Date: 08/09/22 Loc: HO.CT Attending Dr: Ava Yap DO Ordering Physician: Ava Yap DO Date of Service: 08/09/22 Procedure(s): CT chest wo IV con Accession Number(s): [id number] cc: Ava Yap DO EXAMINATION: CT CHEST [...] in OV> 08/13/22 1131 DD/ 0907 TD/TT: Refractory Products Supervisor: MEDARDO [facility] External Provider IMG CT PROCEDURES Edited Result - Final documented in this encounter Visit Diagnoses Not on filedocumented in this encounter Care Teams Recovery Room Nurse Relationship Specialty Start Date End Date Ava Yap DO [address] [place] [address] PCP - General Family Medicine 03/28/11 Avelina Hodges Sewing Pattern Layout TechnicianOccupational Health Coordinator 04/21/23 documented as of this encounter
--- OUTSIDE RECORDS SUMMARY | 2025-02-19 16:22 | XMS_ITS | Encounter Summary ---
Author Organization [employer] Address [address] [facility] 7 [place] [address] Care Team Providers Care Environmental Technical Officer Name Role Phone FraciscoAva Primary Care Provider + [phone] Reason for Visit * Reason Comments Med Refill Encounter Details Date Type Department Care Team ([facility] st Contact Info) Description 08/04/2023 Refill [facility] MEDICINE [address] [place], [place] [phone] Svetlana Mccollum MD 230 [place], [place] [phone] Anxiety Social History Tobacco Use Types Packs/Day [...] Description 03/03/2025 1:30 PM EDT Clinical Support [facility] MEDICINE [address] [place] [address] Denisha Cross RN 06/04/2025 2:30 PM EST Office Visit [facility] OPTOMETRY [address] [place] [address] Rex, Michaelle, OD 230 [place] [address] documented as of this encounter Visit Diagnoses Diagnosis Anxiety Anxiety state, unspecified documented in this encounter Additional Health Concerns Assessment Noted Time PHQ-9 Depression Total Score: 5 06/22/20 10:59 AM EST documented as of this encounter Care Teams Environmental Technical Officer Relationship Specialty Start Date End Date Ava Yap DO 230 [place] [address] PCP - General Family Medicine 03/28/11 Avelina Hodges Cook Helper VegetableTree Cutter 04/21/23 documented as of this encounter
--- OUTSIDE RECORDS SUMMARY | 2025-02-19 16:22 | XMS_ITS | Encounter Summary ---
Author Organization [employer] Address [address] [facility] 7 [place] [address] Care Team Providers Care Website/Blog Editor Name Role Phone Ava Yap DO Primary Care Provider + [phone] Reason for Visit * Reason Onset Date Comments Med Refill Schedule AUDIT LEAD Initial 04/26/2023 Encounter Details Date Type Department Care Team (Late st Contact Info) Description 04/26/2023 Refill [facility] CHC MED & PEDS [address] [place] [address] Ava Yap DO 230 [place] [address] Anxiety; Chronic bilateral low back pain, unspecified [...] - 04/26/2023 11:55 AM EDT TC via P/I#[id number], male voice answered, stated pt was not available. L/M with Rich requesting pt call back to schedule AUDIT LEAD Initial appt. documented in this encounter Plan of Treatment Upcoming Encounters Date Type Department Care Team (Late st Contact Info) Description 03/03/2025 1:30 PM EDT Clinical Support [facility] MEDICINE [address] [place] [address] Denisha Cross RN 06/04/2025 2:30 PM EST Office Visit [facility] OPTOMETRY [address] [place] [address] Rex, Michaelle, OD 230 [place] [address] documented as of this encounter Visit Diagnoses Diagnosis Anxiety Anxiety state, unspecified Chronic bilateral low back pain, unspecified whether sciatica present documented in this encounter Additional Health Concerns Assessment Noted Time PHQ-9 Depression Total Score: 21 023 10:23 AM EDT documented as of this encounter Care Teams Website/Blog Editor Relationship Specialty Start Date End Date Ava Yap DO [address] [place] [address] PCP - General Family Medicine 03/28/11 Avelina Hodges Ac/Dc RewinderHospital Cleaner 04/21/23 documented as of this encounter
--- OUTSIDE RECORDS SUMMARY | 2025-02-19 16:22 | XMS_ITS | Encounter Summary ---
Author Organization [employer] Address [address] [facility] 7 [place] [address] Care Team Providers Care Food Tray Assembler Name Role Phone Ava Yap DO Primary Care Provider + [phone] Reason for Visit * Reason Comments Med Refill Encounter Details Date Type Department Care Team ([facility] st Contact Info) Description 05/03/2024 Refill [facility] MEDICINE 230 [place], [place] [phone] Ava Yap DO 230 [place], [place] [phone] Anxiety; Chronic pain of both knees Social [...] 03/03/2025 1:30 PM EDT Clinical Support [facility] MEDICINE [address] [place] [address] Denisha Cross RN 06/04/2025 2:30 PM EST Office Visit [facility] OPTOMETRY [address] [place] [address] Rex, Michaelle, OD 230 [place] [address] documented as of this encounter Visit Diagnoses Diagnosis Anxiety Anxiety state, unspecified Chronic pain of both knees documented in this encounter Additional Health Concerns Assessment Noted Time PHQ-9 Depression Total Score: 5 06/22/20 10:59 AM EST documented as of this encounter Care Teams Food Tray Assembler Relationship Specialty Start Date End Date Ava Yap DO 230 [place] [address] PCP - General Family Medicine 03/28/11 Avelina Hodges Weaver HandNetwork Strategist 04/21/23 documented as of this encounter
--- OUTSIDE RECORDS SUMMARY | 2025-02-19 16:22 | XMS_ITS | Encounter Summary ---
Author Organization [email or web address] Address [address] [place] [address] 7 [place] [address] Care Team Providers Care Fish Stringer Assembler Name Role Phone Ava Yap DO Primary Care Provider + [phone] Reason for Visit * Reason Comments Med Refill Encounter Details Date Type Department Care Team ([facility] st Contact Info) Description 01/29/[address] [facility] MEDICINE 230 [place], [place] [phone] vAa Yap DO 230 [place], [place] [phone] Anxiety; Chronic bilateral low back pain, unspecified [...] PM EDT Clinical Support [facility] MEDICINE [address] [place] [address] Denisha Cross, DEVI 06/04/2025 2:30 PM EST Office Visit [facility] OPTOMETRY [address] [place] [address] Rex, Michaelle, OD 230 [place] [address] documented as of this encounter Visit Diagnoses Diagnosis Anxiety Anxiety state, unspecified Chronic bilateral low back pain, unspecified whether sciatica present documented in this encounter Additional Health Concerns Assessment Noted Time PHQ-9 Depression Total Score: 5 06/22/20 10:59 AM EST documented as of this encounter Care Teams Fish Stringer Assembler Relationship Specialty Start Date End Date Ava Yap DO [address] [place] [address] PCP - General Family Medicine 03/28/11 Avelina Hodges Telephone Appointment ClerkState Archivist 04/21/23 documented as of this encounter
--- OUTSIDE RECORDS SUMMARY | 2025-02-19 16:22 | XMS_ITS | Encounter Summary ---
Author Organization [employer] Address [address] [facility] 7 [place] [address] Care Team Providers Care Waterproofer Name Role Phone Ava Yap DO Primary Care Provider + [phone] Reason for Visit * Reason Comments Med Refill Encounter Details Date Type Department Care Team ([facility] st Contact Info) Description 12/14/2023 Refill [facility] MEDICINE 230 [place], [place] [phone] Ava Yap DO 230 [place], [place] [phone] Anxiety Social History Tobacco Use Types Packs/Day [...] Description 03/03/2025 1:30 PM EDT Clinical Support [facility] MEDICINE [address] [place] [address] Denisha Cross RN 06/04/2025 2:30 PM EST Office Visit [facility] OPTOMETRY [address] [place] [address] Rex, Michaelle, OD 230 [place] [address] documented as of this encounter Visit Diagnoses Diagnosis Anxiety Anxiety state, unspecified documented in this encounter Additional Health Concerns Assessment Noted Time PHQ-9 Depression Total Score: 5 06/22/20 10:59 AM EST documented as of this encounter Care Teams Waterproofer Relationship Specialty Start Date End Date Ava Yap DO 230 [place] [address] PCP - General Family Medicine 03/28/11 Avelina Hodges Backup EngineerSheet Rock Taper 04/21/23 documented as of this encounter
--- OUTSIDE RECORDS SUMMARY | 2025-02-19 16:22 | XMS_ITS | Encounter Summary ---
Author Organization [employer] Address [address] [facility] 7 [place] [address] Care Team Providers Care Underwriting Operations Manager Name Role Phone Ava Yap DO Primary Care Provider + [phone] Reason for Visit * Reason Comments Med Refill Encounter Details Date Type Department Care Team ([facility] st Contact Info) Description 05/03/2024 Refill [facility] MEDICINE 230 [place], [place] [phone] Ava Yap DO 230 [place], [place] [phone] Anxiety; Chronic pain of both knees Social [...] Description 03/03/2025 1:30 PM EDT Clinical Support [facility] MEDICINE [address] [place] [address] Denisha Cross RN 06/04/2025 2:30 PM EST Office Visit [facility] OPTOMETRY [address] [place] [address] Rex, Michaelle, OD 230 [place] [address] documented as of this encounter Visit Diagnoses Diagnosis Anxiety Anxiety state, unspecified Chronic pain of both knees documented in this encounter Additional Health Concerns Assessment Noted Time PHQ-9 Depression Total Score: 5 06/22/20 10:59 AM EST documented as of this encounter Care Teams Underwriting Operations Manager Relationship Specialty Start Date End Date Ava Yap DO 230 [place] [address] PCP - General Family Medicine 03/28/11 Avelina Hodges Patrol SupervisorPlastic Mould Maker 04/21/23 documented as of this encounter
--- OUTSIDE RECORDS SUMMARY | 2025-02-19 16:22 | XMS_ITS | Clinical Summary ---
Author Organization [facility] Address [address] [place] [address] Care Team Providers Care Cashier And Waiter/Waitress Name Role Phone Pcp, No Primary Care [...] season) 2024, 10/03/2020 Influenza Vaccine 01/24/2025 Insurance [facility] Care Teams Cashier And Waiter/Waitress Relationship Specialty Start Date End Date Pcp, No PCP - General General Medicine 08/12/22
--- OUTSIDE RECORDS SUMMARY | 2025-02-19 16:22 | XMS_ITS | Encounter Summary ---
Author Organization [employer] Address [address] [place] [address] [address] [place] [address] Care Team Providers Care Religious Activities Director Name Role Phone MaurilioAva arellano Primary Care Provider + [phone] Reason for Visit * Reason Comments Med Refill Encounter Details Date Type Department Care Team ([facility] st Contact Info) Description 04/26/2023 Refill [facility] [address] [place], [place] [phone] Vesna Sanabria MD [address] [place] [address] Anxiety Social History Tobacco Use Types Packs/Day [...] Description 03/03/2025 1:30 PM EDT Clinical Support [facility] [address] [place] [address] Denisha Cross RN 06/04/2025 2:30 PM EST Office Visit [facility] [address] [place] [address] Michaelle Goodman, OD [address] [place] [address] documented as of this encounter Visit Diagnoses Diagnosis Anxiety Anxiety state, unspecified documented in this encounter Additional Health Concerns Assessment Noted Time PHQ-9 Depression Total Score: 21 023 10:23 AM EDT documented as of this encounter Care Teams Religious Activities Director Relationship Specialty Start Date End Date Ava Yap DO [address] [place] [address] PCP - General Family Medicine 03/28/11 [address] Streetcar MotormanCorrespondence Specialist 04/21/23 documented as of this encounter
--- OUTSIDE RECORDS SUMMARY | 2025-02-19 16:22 | XMS_ITS | Encounter Summary ---
Author Organization [employer] Address [address] [place] [address] 7 [place] [address] Care Team Providers Care Geochemical Manager Name Role Phone MaurilioAva arellano Primary Care Provider + [phone] Reason for Visit * Reason Comments Med Refill Encounter Details Date Type Department Care Team ([facility] st Contact Info) Description 08/04/2023 Refill [facility] [address] [place], [place] [phone] Vesna Sanabria MD [address] [place] [address] Chronic bilateral low back pain, unspecified whether [...] Description 03/03/2025 1:30 PM EDT Clinical Support [facility] [address] [place] [address] Denisha Cross, DEVI 06/04/2025 2:30 PM EST Office Visit [facility] [address] [place] [address] Rex, Michaelle, OD [address] [place] [address] documented as of this encounter Visit Diagnoses Diagnosis Chronic bilateral low back pain, unspecified whether sciatica present documented in this encounter Additional Health Concerns Assessment Noted Time PHQ-9 Depression Total Score: 5 06/22/20 10:59 AM EST documented as of this encounter Care Teams Geochemical Manager Relationship Specialty Start Date End Date Ava Yap DO [address] [place] [address] PCP - General Family Medicine 03/28/11 Avelina Hodges Printing PressmanLead Laying And Gluing Machine Operator 04/21/23 documented as of this encounter
--- OUTSIDE RECORDS SUMMARY | 2025-02-19 16:22 | XMS_ITS | Encounter Summary ---
Author Organization [employer] Address [address] [facility] [place] 7 [place] [address] Care Team Providers Care Attending Radiologist Name Role Phone Fracisco Ava Primary Care Provider + [phone] Reason for Visit * Reason Comments Med Refill Encounter Details Date Type Department Care Team ([facility] st Contact Info) Description 02/28/2024 Refill [facility] [address] [place], [place] [phone] Johan Kraft MD [address] [place] [address] Social History Tobacco Use Types Packs/Day Years [...] Description 03/03/2025 1:30 PM EDT Clinical Support [facility] [address] [place] [address] Denisha Cross RN 06/04/2025 2:30 PM EST Office Visit [facility] [address] [place] [address] Rex, Michaelle, OD [address] [place] [address] documented as of this encounter Visit Diagnoses Not on filedocumented in this encounter Additional Health Concerns Assessment Noted Time PHQ-9 Depression Total Score: 5 06/22/20 23 10:59 AM EST documented as of this encounter Care Teams Attending Radiologist Relationship Specialty Start Date End Date Ava Yap DO [address] [place] [address] PCP - General Family Medicine 03/28/11 Avelina Hodges Veneer RedrierTribal Council Member 04/21/23 documented as of this encounter
--- OUTSIDE RECORDS SUMMARY | 2025-02-19 16:22 | XMS_ITS | Encounter Summary ---
Author Organization [employer] Address [address] [place] [address] Care Team Providers Care Avionics Repair Technician Name Role Phone Ava Yap DO Primary Care Provider + [phone] Reason for Visit * Reason Comments Med Refill Encounter Details Date Type Department Care Team (Late st Contact Info) Description 11/14/2022 Refill [facility] [address] [place], [place] [phone] Ava Yap DO [address] [place], [place] [phone] Anxiety Social History Tobacco Use Types Packs/Day [...] Support [facility] [address] [place], [place] [phone] Denisha Cross RN 06/04/2025 2:30 PM EST Office Visit [facility] [address] [place], [place] [phone] Michaelle Goodman, OD [address] [place] [address] documented as of this encounter Visit Diagnoses Diagnosis Anxiety Anxiety state, unspecified documented in this encounter Additional Health Concerns Assessment Noted Time PHQ-9 Depression Total Score: 0 07/27/19 11:46 AM EST documented as of this encounter Care Teams Avionics Repair Technician Relationship Specialty Start Date End Date Ava Yap DO [address] [place] [address] PCP - General Family Medicine 03/28/11 Avelina Hodges Second Language TutorRubber Process Hand 04/21/23 documented as of this encounter
--- OUTSIDE RECORDS SUMMARY | 2025-02-19 16:23 | XMS_ITS | Encounter Summary ---
Author Organization [employer] Address [address] [place] [address] [address] [place] [address] Care Team Providers Care Director Government Name Role Phone Ava Yap DO Primary Care Provider + [phone] Reason for Visit * Reason Onset Date Comments Appointment Request 07/16/2024 Call Back Request 07/16/2024 Encounter Details Date Type Department Care Team ([facility] st Contact Info) Description 07/16/2024 Telephone [facility] [address] [place], [place] [phone] Ava Yap DO [address] [place], [place] [phone] Appointment Request; Call Back Request Social History [...] she don't want to be without meds. [phone] documented in this encounter Plan of Treatment Upcoming Encounters Date Type Department Care Team (Late st Contact Info) Description 03/03/2025 1:30 PM EDT Clinical Support [facility] [address] [place] [address] Denisha Cross RN 06/04/2025 2:30 PM EST Office Visit [facility] [address] [place] [address] Michaelle Goodman, OD [address] [place] [address] documented as of this encounter Visit Diagnoses Not on filedocumented in this encounter Additional Health Concerns Assessment Noted Time PHQ-9 Depression Total Score: 5 06/22/20 23 10:59 AM EST documented as of this encounter Care Teams Director Government Relationship Specialty Start Date End Date Ava Yap DO [address] [place] [address] PCP - General Family Medicine 03/28/11 Avelina Hodges ProofreaderReading Coach 04/21/23 documented as of this encounter
--- OUTSIDE RECORDS SUMMARY | 2025-02-19 16:23 | XMS_ITS | Clinical Summary ---
Author Organization [employer] Address [address] [place] [address] [address] [place] [address] Care Team Providers Care Color Weigher Name Role Phone Fracisco Ava Primary Care Provider [phone] Allergies Active Allergy Reactions Criticality Noted Date [...] WITH FOOD 90 tablet 3 024 Active cetirizine (ZyrTEC) 10 MG tabletIndications: [...] bedtime (pain). 150 g 3 025 Active acetaminophen (Tylenol 8 Hour) 650 [...] 1 025 Active LORazepam (Ativan) 2 MG tablet Take 1 tablet (2 mg) by mouth if needed in the morning and at bedtime for anxiety for up to 28 days. 56 tablet Active gabapentin (Neurontin) 400 MG capsuleIndications :Chronic low back pain, unspecified back pain laterality, unspecified whether sciatica present TAKE 1 CAPSULE BY MOUTH TWICE DAILY IN THE MORNING AND AT NOON and TAKE 2 CAPSULES AT BEDTIME 120 capsule 5 Active zolpidem (Ambien) 10 MG tabletIndications: Anxiety TAKE 1 TABLET BY MOUTH AT BEDTIME NEEDED FOR SLEEP 7 tablet Active traMADol (Ultram) 50 MG tabletIndications: Chronic pain of both knees Take 1 tablet (50 mg) by mouth every 6 (six) hours if needed for severe pain for up to 28 days. Do not start before January 30, 2025. 112 tablet 025 02/27 Active LORazepam (Ativan) 2 MG tabletIndications: Anxiety TAKE 1 TABLET BY MOUTH TWICE DAILY IN THE MORNING AND IN THE EVENING NEEDED FOR ANXIETY. 56 tablet 025 03/06 Active LORazepam (Ativan) 2 MG tabletIndications: Anxiety TAKE 1 TABLET BY MOUTH TWICE DAILY IN THE MORNING AND IN THE EVENING NEEDED FOR ANXIETY. 56 tablet 025 02/07 Discontinued( Reorder (will not trigger notification to Pharmacy)) traMADol (Ultram) 50 MG tabletIndications: Chronic pain of both knees Take 1 tablet (50 mg) by mouth every 6 (six) hours if needed for severe pain for up to 28 days. Do not start before January 02, 2025. 112 tablet 025 01/28 Discontinued( Reorder (will not trigger notification to Pharmacy)) Active Problems Patient Care Coordination No te Formatting of this note migh t be different from the original. C3/CM Celia Brown RN Problem Noted Date Diagnosed Date Long-term current use of opiate analgesic 2024 Long-term current use of benzodiazepine 11/29/19 Severe dental caries 09/06/2024 Non-restorable tooth 09/06/2024 [...] walk in. She was initially seen at [facility] on 08/12 for neck swelling, neck pain, sore throat, and mild sob x [address] scan of soft tissue of neck showed tissue swelling at C2-C4 which possibly reflected retropharyngeal cellulitis. Therefore pt. Was transferred to [facility] for an ENT consult. ENT determined [...] Encounters Date Type Department Care Team Description 02/05/2025 11:30 AM EDT Office Visit [facility] [address] [place] [id number] Ava Yap DO 02/05/2025 Travel 02/04/[address] [address] Ava Yap DO Chart Prep 02/03/2025 Patient Outreach [address] [address] Ava Yap DO Care Coordination (CP Assigned Patient ED Follow Up) 02/01/2025 Orders Only GENERIC EXTERNAL DATA DEPARTMENT Provider, Generic External Data 01/27/2025 Refill [facility] [address] [place] [address] Ava Yap DO Chronic pain of both knees 01/27/2025 Refill [facility] [address] [place] [address] Ava Yap DO Anxiety 12/25/[address] [address] Ava Yap DO Chronic pain of both knees 12/25/[address] [address] Ava Yap DO Referral 12/24/2024 Telephone [facility] [address] [place] [address] Ava Yap DO Prior Authorization ( PA: Lorazepam (Ativan)) 12/04/2024 Refill [facility] [address] [place] [address] Ava Yap DO Chronic pain of both knees 12/04/2024 Refill [facility] [address] [place] [address] Ava Yap DO Anxiety 11/28/2024 1:30 PM EDT Clinical Support [address] [address] Denisha Cross RN Long-term current use of opiate analgesic (Primary Dx); Long-term current use of benzodiazepine 11/28/[address] [address] Denisha Cross RN Anxiety 11/28/2024 Travel 11/28/2024 Refill [facility] [address] [place] [address] Ava Yap DO Chronic low back pain, unspecified back pain laterality, unspecified whether sciatica present 11/25/2024 Refill [facility] [address] [place] [address] Ava Yap DO Anxiety 11/19/2024 2:20 PM EDT Office Visit [facility] [address] [place] [address] Ava Yap DO Hordeolum externum of right lower eyelid (Primary Dx); Trigger finger of right thumb 11/19/2024 Travel from Last 3 Months Immunizations Immunization Administration Dates Next Due Hep A, Adult [...] Sign Reading Time Taken Comments Blood Pressure 138/76 02/05/2025 11:53 AM EDT Pulse 94 02/05/2025 11:53 AM EDT Temperature 36.8 C (98.3 F) 02/05/2025 11:53 AM EDT Respiratory Rate 21 02/05/2025 11:53 AM EDT Oxygen Saturation 98% 02/05/2025 11:53 AM EDT Inhaled Oxygen Concentration - - Weight 104 kg (229 lb) 02/05/2025 11:53 AM EDT Height 152.4 cm (5') 02/05/2025 11:53 AM EDT Body Mass Index 44.72 02/05/2025 11:53 AM EDT Plan of Treatment Upcoming Encounters Date Type Department Care Team (Late st Contact Info) Description 03/03/2025 1:30 PM EDT Clinical Support [facility] [address] [place] [address] Denisha Cross RN 06/04/2025 2:30 PM EST Office Visit [facility] [address] [place], [place] [phone] Michaelle Goodman OD [address] [place] [address] Health Maintenance Due Date Last Done Comments CT Colonography 1970 Colonoscopy 1971 Colorectal Cancer Screening 1971 Dental Oral Exam 1971 Dental Prophylaxis 1971 Dental X-Ray: Bitewings 1971 Dental X-Ray: Full Mouth 1971 FIT DNA/Cologuard 1971 FIT 1971 FOBT 1971 Sigmoidoscopy 1971 Pap Smear 12/05/1992 Pneumococcal Vaccine: 50+ Years (2 of 2 - PCV) 04/02/2016 04/02/2015 Zoster Vaccines (1 of 2) 12/05/2021 COVID-19 Vaccine (3 - season) 2024 06/15/2021, 10/03/2020 Depression Screening 06/22/2024 06/22/2023, 06/22/20 23 Cervical Cancer Screening 08/23/2024 HPV/Cotest 08/23/2024 08/23/2019, 07/22/2016 DTaP/Tdap/Td Vaccines (2 - Td or Tdap) 12/09/2024 12/09/2014 Influenza Vaccine (#1) 2025 Mammogram 05/04/2025 05/04/2023, 03/27, 12/11/2020, Additional history exists Disability Screening 08/30/2025 08/30/2024 SDOH Screening 08/30/2025 08/30/2024 Diabetes: Hemoglobin A1C 10/31/2025 025, 09/05/2024, 12/13/2022, Additional history exists Alcohol/Substance Use Screening 02/05/2026 02/05/2025 Tobacco Screening 02/05/2026 02/05/2025 Lipid Panel 10/31/2029 10/31/2024, 0411/2024, 09/05/2024, Additional history exists RSV Patients and Patients Aged 60 years or older (1 - 1-dose 75+ series) 12/05/2046 Hepatitis A Vaccines Completed 09/11/2018, 09/19/20 18 Hepatitis B Vaccines Completed 09/11/2018, 06/27/2018, [...] patient's age to complete this topic Meningococcal B Vaccine Aged Out No l onger eligible based on patient's age to complete [...] Name Priority Date/Time Associated Diagnosis Comments XR CHEST 2 VIEWS Routine 02/01/2025 1:02 PM EDT HIGH SENSITIVITY TROPONIN I Routine 02/01/2025 12:13 PM EDT LIPASE Routine 02/01/2025 12:13 PM EDT MAGNESIUM Routine 02/01/2025 12:13 PM EDT BASIC METABOLIC PANEL Routine 02/01/2025 12:13 PM EDT HEPATIC FUNCTION PANEL Routine 02/01/2025 12:13 PM EDT CBC WITH AUTO DIFFERENTIAL Routine 02/01/2025 12:13 PM EDT SARS COV2/INFLUENZA A/B AND RSV RNA QL NAAT Routine 02/01/2025 12:13 PM EDT POCT ELISEO-14 URINE DRUG SCREEN Routine 11/28/2024 1:15 PM EDT Long-term current use of opiate analgesic HEMOGLOBIN A1C Routine 10/31/2024 9:00 AM EDT LIPID PANEL, STANDARD Routine 10/31/2024 9:00 AM EDT HEPATITIS C AB W/REFL TO HCV RNA, [...] neoplasm of colon Screening for colon cancer BI MAMMOGRAM SCREENING TOMOSYNTHESIS BILATERAL Routine 05/04/2023 1:45 PM EST ZZZ HISTORICAL HPV E6/E7 RFLX ELMER 16 18/45 Routine 08/23/2019 11:30 AM EST from Last 3 Months or Most Recently Relevant to Health Maintenance Results * XR Chest 2 Views (02/01/2025 1:02 PM EDT) Anatomical Region Laterality Modality Chest Radiographic Nieves ging 02/01/2025 1:02 PM EDT Narrative 02/01/2025 1:04 PM EDT [address] [address] XRay Report Signed Patient: Ximena Xiong MR#: [id number] : 1970 Acct:[id number] Age/Sex: 54 / F ADM Date: 02/01/25 Loc: HO.ED Attending Dr: Ordering Physician: Anushka Skinner Date of Service: 02/01/25 Procedure(s): XR chest 2V Accession Number(s): [id number] cc: Ava Yap DO; Anushka Skinner CLINICAL HISTORY: CP 2 view chest x-ray Comparison: CR/SR - XR CHEST 2 VIEWS - 06/18/24 16:17 EST Findings: Lungs are well inflated. Cardiac silhouette is within normal limits. No focal areas of consolidation. Scattered calcified granulomas within the lungs. No pleural effusion. IMPRESSION: 1. No acute findings. This document has been electronically signed by: Pedro Andrews MD on 02/01/2025 13:02:28 Dictated By: Pedro Andrews MD Signed By: <Electronically signed by Pedro Andrews MD in OV> 02/01/25 1303 DD/ 1302 TD/TT: 02/01/25 130 Riverboat Master: Procedure Note Donotuseinterpreter, Image - 02/01/2025 [place] [address] XRay Report Signed Patient: Kody Xiong#: [id number] : 1970Acct:[id number] Age/Sex: 54 / FADM Date: 02/01/25 Loc: HO.ED Attending Dr: Ordering Physician: Anushka Skinner Date of Service: 02/01/25 Procedure(s): XR chest 2V Accession Number(s): [id number] cc: Ava Yap DO; Anushka Skinner CLINICAL HISTORY: CP 2 view chest x-ray Comparison: CR/SR - XR CHEST 2 VIEWS - 06/18/24 16:17 EST Findings: Lungs are well inflated. Cardiac silhouette is within normal limits. No focal areas of consolidation. Scattered calcified granulomas within the lungs. No pleural effusion. IMPRESSION: 1. No acute findings. This document has been electronically signed by: Pedro Andrews MD on 02/01/2025 13:02:28 Dictated By: Pedro Andrews MD Signed By: <Electronically signed by Pedro Andrews MD in OV> 02/01/25 1303 DD/ 1302 TD/TT: 02/01/25 1302 Riverboat Master: [facility] External Provider IMG XR PROCEDURES Final Result * High Sensitivity Troponin I (02/01/2025 12:13 PM EDT) TROPONIN I HIGH SENSITIVITY <2.7 <3.5 - 17.0 ng/L [facility] Comment:The [place]oto high sens itivity Troponin-I results should beused in conjunction with other diagnostic information suchas ECG, clinical observations and information, and patientsymptoms to aid in the diagnosis of PA. 02/01/2025 12:1 3 PM EDT 02/01/2025 12:16 PM EDT Generic External Data Provider LAB BLOOD ORDERAB LES Final Result [facility] [address] [place] [phone] * SARS-CoV-2 RNA, Influenza A/B, and RSV RNA, Ql NAAT (02/01/2025 12:13 PM EDT) Pathologist [facility] Influenza A PCR NEGATIVE Negative [facility] Influenza B PCR NEGATIVE Negative [facility] Resp Syncy Virus RNA Qual PCR NEGATIVE Negative [facility] SARS COV2 PCR NEGATIVE Negative [facility] Comment:All test results mus t [...] use by authorized laboratories.Testing performed on the [employer] GeneXpert utilizingreal-time RT-PCR.All SARS CoV2 and positive influenza A/B results arereported to [facility]. 02/01/2025 12:1 3 PM EDT 02/01/2025 12:16 PM EDT us Generic External Data Provider LAB MICROBIOLOGY - GENERAL ORDERABLES Final Result [facility] [address] [place] [address] [phone] * CBC auto differential (02/01/2025 12:13 PM EDT) White Blood Count 5.6 4.8 - 10.8 X10*3/uL [facility] Red Blood Count 4.47 4.20 - 5.50 X10*6/uL [facility] Hemoglobin 13.9 12.0 - 16.0 g/dl [facility] Hematocrit 40.0 37.0 - 47.0 % [facility] Mean Corpuscular Volume 89.5 80.0 - 98.0 fL [facility] Mean Corpuscular Hemoglobin 31.1 27.0 - 33.0 pg [facility] Mean Corpuscular HGB Conc 34.8 31.0 - 35.0 g/dl [facility] Red Cell Distribution Width 12.9 11.0 - 16.0 % [facility] Platelet Count 216 160 - 400 X10*3/uL [facility] Mean Platelet Volume 10.7 9.4 - 12.3 fL [facility] Neutrophils Percent Auto 51.1 45 - 73 % [facility] Imm Gran Pct Auto 0.2 0.0 - 0.4 % [facility] Lymphocytes Percent Auto 38.7 20 - 40 % [facility] Monocytes Percent Auto 8.9 2 - 11 % [facility] Eosinophils Percent Auto 0.9 0 - 4 % [facility] Basophils Percent Auto 0.2 0 - 2 % [facility] NRBC Pct Auto 0.0 0.0 - 0.2 /100WBC [facility] Neutrophils Absolute Auto 2.9 2.0 - 8.3 x10*3/uL [facility] Imm Gran Abs Auto 0.01 0.00 - 0.03 X10*3/uL [facility] Lymphocytes Absolute Auto 2.2 1.2 - 4.9 X10*3/uL [facility] Monocytes Absolute Auto 0.5 0.1 - 1.2 X10*3/uL [facility] Eosinophils Absolute Auto 0.1 0.0 - 0.4 X10*3/uL [facility] Basophils Absolute Auto 0.0 0.0 - 0.2 X10*3/uL [facility] NRBC Abs Auto 0.000 0.0 - 0.012 X10*3/uL [facility] 02/01/2025 12:1 3 PM EDT 02/01/2025 12:16 PM EDT us Generic External Data Provider LAB BLOOD ORDERAB LES Final Result Performing Organization Address [facility] Co de Phone Number [facility] [address] [place] [address] [phone] * Magnesium (02/01/2025 12:13 PM EDT) Magnesium 1.9 1.6 - 2.6 mg/dL [facility] 02/01/2025 12:1 3 PM EDT 02/01/2025 12:16 PM EDT us Generic External Data Provider LAB BLOOD ORDERAB LES Final Result Performing Organization Address [facility] Co de Phone Number [facility] [address] [place] [address] [phone] * Lipase (02/01/2025 12:13 PM EDT) Lipase 16 8 - 78 U/L [facility] 02/01/2025 12:1 3 PM EDT 02/01/2025 12:16 PM EDT us Generic External Data Provider LAB BLOOD ORDERAB LES Final Result Performing Organization Address [facility]/ZIP Co de Phone Number [facility] [address] [place] [address] [phone] * Hepatic Function Panel (02/01/2025 12:13 PM EDT) Pathologist [facility] Bilirubin, Total 0.4 0.0 - 1.0 mg/dL [facility] Bilirubin, Direct 0.1 0.0 - 0.5 mg/dL [facility] Aspartate Amino Transferase 26 5 - 31 U/L [facility] Alanine Aminotransferase 30 0 - 31 U/L [facility] Total Protein 7.7 6.5 - 8.0 g/dL [facility] Albumin Level 4.8 3.5 - 5.0 g/dL [facility] Alkaline Phosphatase 79 39 - 117 U/L [facility] 02/01/2025 12:1 3 PM EDT 02/01/2025 12:16 PM EDT Generic External Data Provider LAB BLOOD ORDERAB LES Final Result [facility] [address] [place] [address] [phone] * Basic Metabolic Panel (02/01/2025 12:13 PM EDT) [facility] Sodium 140 135 - 145 mmol/L [facility] Potassium 4.0 3.3 - 5.1 mmol/L [facility] Chloride 107 96 - 108 mmol/L [facility] Carbon Dioxide 24 22 - 29 mmol/L [facility] Anion Gap 13 12 - 20 [facility] Urea Nitrogen (BUN) 13 9 - 16 mg/dL [facility] Creatinine, Serum 0.73 0.5 - 1.4 mg/dL [facility] Creatinine Clr Calc Pharmacy 96.0 [facility] Comment:Provided height and weight: 152.4 cm,102.3 kg.eGFR (calculated from the MDRD study equation) and eCrCl(calculated from the Cockcroft-Gault equation) are based ondifferent parameters and may not yield comparable results.If eCrCl result is absurd, please check patient'sheight/weight. Estimated Glomerular Filt Rate >60 [facility] Comment:Chronic Kidney Disea se: Estimated GFR < 60 mL/min/1.12h9Jzrenh Kidney Disease: Estimated GFR < 15 mL/min/1.73m2 Glucose 113 60 - 115 mg/dL [facility] Calcium 9.5 8.4 - 10.2 mg/dL [facility] 02/01/2025 12:1 3 PM EDT 02/01/2025 12:16 PM EDT us Generic External Data Provider LAB BLOOD ORDERAB LES Final Result Performing Organization Address City/State/[facility] Co de Phone Number [facility] [address] [place] [phone] * POCT ELISEO-14 Urine Drug Screen (11/28/2024 1:15 PM EDT) THC Negative Cocaine Screen, Urine Negative Opiate Screen, Urine Negative Methamphetamine Screen Urine Negative Amphetamine Screen, Urine Negative Benzodiazepines Screen, Urine Positive Barbiturate Screen, Urine Negative Methadone Screen, Urine Negative Buprenophine Screen, Urine Negative TCA, Urine Negative MDMA Urine Negative ng/mL Oxycodone Screen, Urine Negative Phencyclidine (PCP), Urine Negative Propoxyphene, Urine Negative Fentanyl, Urine Negative Urine Urine specimen obtained by clean catch procedure / Unknown 11/28/2024 1:15 PM EDT Denisha Schroeder RN - 11/28/2024 1:15 PM EDT UTOX cup Lot#[id number] Exp. 04/25/26 Internal Pass Control Ava Yap DO POINT OF CARE TEST ENTER/HILARIO T ORDERABLES Final Result * Hemoglobin A1c (10/31/2024 9:00 AM EDT) Hemoglobin A1c 6.0 <6.0 % [facility] Comment:Hemoglobin A1C Refer ence Range Adults: 4.8 - 6.0 % Non diabetic: < 6.0 % Goal: < 7.0 %Additional Action Suggested: > 8.0 %Note: Hemoglobin A1c results are invalid for patients with abnormal amounts of HbF. Blood transfusions may impact the HbA1c concentration in the patient sample. Estimated Average Glucose 126 mg/dL [facility] Comment:eAG = Estimated ave rage glucose which is %A1C expressed asaverage glucose, using the formula of the L2T-SnvtquwHkzqwzc Glucose study (ADAG), Diabetes Care, Vol.31,#8,Jan. 2007 10/31/2024 9:00 AM EDT 10/31/2024 9:00 AM EDT us Generic External Data Provider LAB BLOOD ORDERAB LES Final Result [facility] [address] [place] [address] [phone] * (ABNORMAL) Lipid Panel, Standard (10/31/2024 9:00 AM EDT) Triglycerides 198(H) <150 mg/dL [facility] Comment:Desirable Triglyceri de: less than 150 mg/dLBorderline High Triglyceride 150-199 mg/dLHigh Triglyceride: 200-499 mg/dLVery High Triglyceride: greater than or equal to 5OO mg/dL Cholesterol 159 <200 mg/dL [facility] Comment:Desirable Cholestero l: less than 200 mg/dLBorderline High Cholesterol: 200-239 mg/dLHigh Cholesterol: greater than 239 mg/dL LDL Cholesterol Calculated 75 <100 mg/dL [facility] Comment:Desirable LDL: less than 100 mg/dLNear Optimal/Above Optimal LDL: 110- 129 mg/dLBorderline High LDL: 130-159 mg/dLHigh LDL: 160-189 mg/dLVery High LDL: greater than or equal to 190 mg/dL HDL Cholesterol 45 >40 mg/dL [facility] Comment:Desirable HDL: great er than 40 mg/dL Note: This HDL assay may give artificially low results in patients with liver disease. 10/31/2024 9:00 AM EDT 10/31/2024 9:00 AM EDT us Generic External Data Provider LAB BLOOD ORDERAB LES Final Result Performing Organization Address [facility]/ZIP Co de Phone Number [facility] [address] [place] [phone] * Hepatitis C Antibody with Reflex to HCV, RNA, Quantitative, Real-Time PCR (09/05/2024 11:10 AM EDT) Hepatitis C Antibody Nonreactive Nonreactive [facility] Comment:Antibodies to HCV no t detected; does not exclude early acuteHCV infection. Blood Venous blood specimen / Unknown 09/05/2024 11:10 AM EDT 09/05/2024 1:25 PM EDT Ava Yap DO LAB BLOOD ORDERABLES Final R esult Performing Organization Address [facility] Co de Phone Number [facility] [address] [place] [phone] * HIV-1/2 Antigen and Antibodies, Fourth Generation, with Reflexes (09/05/2024 11:10 AM EDT) Pathologist [facility] HIV AB/AG Nonreactive Nonreactive [facility] Comment:HIV-1 p24 Ag and/or HIV-1/HIV-2 Ab not detected.A test result that is nonreactive does not exclude thepossibility of exposure to or infection with HIV-1 and/orHIV-2. Nonreactive results in this assay for individualswith prior exposure to HIV-1 and/or HIV-2 may be due toantigen and antibody levels that are below the limit ofdetection of this assay.The [employer] HIV Ag/Ab Combo assay result andsupplemental assay results should be interpreted inconjunction with the patient's clinical presentation,history and other laboratory results. If the results areinconsistent with clinical evidence, additional testing issuggested to confirm the result. Blood Venous blood specimen / Unknown 09/05/2024 11:10 AM EDT 09/05/2024 1:25 PM EDT us Ava Yap DO LAB BLOOD ORDERABLES Final R esult [facility] [address] [place] [address] [phone] * BI Mammogram Screening Tomosynthesis Bilateral (05/04/2023 1:45 PM EST) Anatomical Region Laterality Modality Breast Bilateral Mammography 05/04/2023 1:45 PM EST Narrative 05/22/2023 6:55 AM EST [address] [place] [address] Mammography Report Signed Patient: Ximena Xiong MR#: [id number] : 1970 Acct:[id number] Age/Sex: 52 / F ADM Date: 05/04/23 Loc: HO.MAMMO Attending Dr: Ava Yap DO Ordering Physician: Ava Yap DO Results: 1N egative Date of Service: 05/04/23 Follow Up: 1 Year From Orig inal Mammogram Procedure(s): MM tomosynthesis screening BI Accession Number(s): [id number] cc: Ava Yap DO EXAMINATION: MM SCREENING [...] signed by Ana Buchanan MD in OV> 05/22/23650 DD/ 44 TD/TT: Riverboat Master: Procedure Note Donoteuniceinterpreter, Image - 05/22/2023 [facility] [address] [place], [place] [address] Mammography Report Signed Patient: Heath XiongR#: [id number] : 1970Acct:[id number] Age/Sex: 52 / FADM Date: 05/04/23 Loc: NORTH Attending Dr: Ava Yap DO Ordering Physician: Ava Yapults: 1N egative Date of Service: 05/04/23Follow Up: 1 Year From Orig inal Mammogram Procedure(s): MM tomosynthesis screening BI Accession Number(s): [id number] cc: Ava Yap DO EXAMINATION: MM SCREENING [...] signed by Ana Buchanan MD in OV> 05/22/2351 DD/ 44 TD/TT: Riverboat Master: Ava Yap DO IMG BI PROCEDURES Final Resu lt * HPV E6/E7 RFLX ELMER 16 18/45 (08/23/2019 11:30 AM EST) ADDITIONAL TESTING Not indicated () [facility] Comment: Test Performed by [facility], [employer] [place], [address] [place], [place] Jorge López M.D., Ph.D., Director of Laboratories , [facility] [id number] HPV 16 RNA Test not performed [facility] HPV 18/45 RNA Test not performed [facility] HPV mRNA E6/E7 Not Detected NOT DETECTED [facility] [facility] Comment: This test was performed using the APTIMA(R) HPV Assay ([employer] This assay detects E6/E7 viral messenger RNA (mRNA) from 14 high-risk HPV types (16,18,31,33,35,39,45,51, 52,56,58,59,66,68). For additional information please refer to: http://education.Kormeli/faq/IBU223m9 (This link is being provided for informational/ educational purposes only.) The analytical performance characteristics of this assay have been determined by [place], [place]. The modifications have not been cleared or approved by the FDA. This assay has been validated pursuant to the CLIA regulations and is used for clinical purposes. Please note: Effective 03/07/2016, HPV testing will be performed using [employer]'s APTIMA test which targets mRNA. Detecting mRNA instead of DNA, as in older methods, offers significant improvements in specificity. 08/23/2019 11:3 0 AM EST us Ava Yap DO HISTORICAL/NON ORDERABLE LAB S Final Result [facility] [address] from Last 3 Months or Most Recently Relevant to Health Maintenance Insurance [facility] C3 DENTAL-[facility] MEDICAID STAND ADULT Care Teams Color Weigher Relationship Specialty Start Date End Date Ava Yap DO [address] [place] [id number] PCP - General Family Medicine 03/28/11 Avelina Hodges Buggy Ladle TenderSki Technician 04/21/23
--- OUTSIDE RECORDS SUMMARY | 2025-02-19 16:23 | XMS_ITS | Encounter Summary ---
Author Organization [employer] [facility] Address [address] [place] [address] Care Team Providers Care Makeup Sales Consultant Name Role Phone Ava Yap DO Primary Care Provider + [phone] Reason for Visit * Reason Comments Med Refill Encounter Details Date Type Department Care Team (Late st Contact Info) Description 03/19/2023 Refill [facility] MED[facility] [address] [place] [address] [phone] Ava Yap DO [address] [place] [address] Social History Tobacco Use Types Packs/Day Years [...] Description 03/03/2025 1:30 PM EDT Clinical Support [facility] [address] [place] [address] [phone] Denisha Cross RN 06/04/2025 2:30 PM EST Office Visit [facility] OPTOMETRY [address] [place] [address] Michaelle Goodman, OD [address] [place], [place] [phone] documented as of this encounter Visit Diagnoses Not on filedocumented in this encounter Additional Health Concerns Assessment Noted Time PHQ-9 Depression Total Score: 21 023 10:23 AM EDT documented as of this encounter Care Teams Makeup Sales Consultant Relationship Specialty Start Date End Date Ava Yap DO [address] [place] [address] PCP - General Family Medicine 03/28/11 Avelina Hodges Metal Organ Pipe MakerSurgery Aid 04/21/23 documented as of this encounter
== END 2025-02-19 16:32 | disposition home or self-care (01) ==
LOC: HO.HCS 15:05
PROVIDERS: PCP Family Medicine; Visit Provider Internal Medicine Cardiovascular Disease
DX: E66.9 Obesity, unspecified (principal); R00.2 Palpitations; I10 Essential (primary) hypertension
CPT/HCPCS: 93010; 99213

== ENCOUNTER → 2025-02-19 15:05 | Outpatient (BNVA) | payer MEDICAID, SELFPAY | PROVIDERS: PCP Family Medicine; Visit Provider Internal Medicine Cardiovascular Disease | DX: R00.2 Palpitations (principal); I10 Essential (primary) hypertension; E66.01 Morbid (severe) obesity due to excess calories; F41.9 Anxiety disorder, unspecified; Z68.41 Body mass index [BMI] 40.0-44.9, adult | CPT/HCPCS: 93005; 99212 ==

== ENCOUNTER 2025-03-03 13:24 | Outpatient (REF) | payer MEDICAID, SELFPAY ==
--- NOTE | ~2025-03-03 | XR_ITS ---
EXAMINATION: XR CHEST 2 VIEWS HISTORY: R04.2 - Hemoptysis COMPARISON: Comparison is made with the prior examination dated 02/01/2025. FINDINGS: PA and lateral views of the chest are submitted. The lungs are expanded and clear. There is no pleural effusion, pneumothorax, or pulmonary vascular congestion. The heart is normal in size. There is degenerative disc disease of the spine. XR/XR chest 2V IMPRESSION: No acute cardiopulmonary abnormality. Electronically signed by: Tesfaye Whitaker MD 03/03/2025 01:49 PM EDT
--- OUTSIDE RECORDS SUMMARY | 2025-03-03 13:30 | XMS_ITS | Encounter Summary ---
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 Question Answer Date of Assessment Author Feeling nervous, anxious, or on edge 2 01/2025 1:13 PM EDT Denisha Corss RN Not being able to stop or co ntrol worrying 2 03/03/2025 1:13 PM EDT Denisha Cross RN Worrying too much about diff erent things 3 03/03/2025 1:13 PM EDT Denisha Cross RN Trouble relaxing 3 03/03/2025 1:13 PM EDT Denisha Dey ae, RN Being so restless that it is hard to sit still 2 03/03/2025 1:13 PM EDT Denisha Cross RN Becoming easily annoyed or irritable 1 01/2025 1:13 PM EDT Denisha Cross RN Feeling afraid as if somethi ng awful might happen 3 03/03/2025 1:13 PM EDT Denisha Cross RN DAVID-7 Total Score 16 03/03/2025 1:13 PM EDT Denisha Cross RN documented as of this encounter Progress Notes * Denisha Cross RN - 03/03/2025 1:30 PM EDT SUBJECTIVE: Ximena Muhammad is a 54 y.o. 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 Pt states she takes 2-3 doses a day. Ximena Muhammad does report adherence to Lorazepam (Ativan) 2 mg, take 1 tablet every 12 hours PRN, last refilled 02/10/2025. The patient last took Tramadol (Ultram) on: 03/02/2025 Medication is: 60% % effective at alleviating pain. The patient last took Lorazepam (Ativan) on: 03/03/2025 Medication effective: Yes Sleep habits: Gordo is teething, so she's not sleeping well currently. 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 Pill count completed for Lorazepam (Ativan), count today is 31 , anticipated count should be 13, this is as expected. 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 Tier: 2 Current Medications[1] Smoking status: Denies ETOH use: Denies Illicit substances: Denies Marijuana use: No Lab Results Component Value Date POCTHC Negative 03/03/2025 POCCOCAINEUR Negative 03/03/2025 POCOPIATEUR Negative 03/03/2025 DOAUR Negative 03/03/2025 POCAMPHETAMI Negative 03/03/2025 POCBENZODIUR Positive 03/03/2025 POCBARBSCRN Negative 03/03/2025 POCMETHADOUR Negative 03/03/2025 POCBUPSCRN Negative 03/03/2025 POCTCAUR Negative 03/03/2025 POCMDMAUR Negative 03/03/2025 POCOXYCODONE Negative 03/03/2025 POCPHENCYCUR Negative 03/03/2025 PROPOXUR Negative 03/03/2025 FENTANYLURIN Negative 03/03/2025 ASSESSMENT: Encounter Diagnoses Name Primary? Long-term current use of opiate analgesic Yes Long-term current use of benzodiazepine PLAN: Information on pain group given: Previously discussed Information on acupuncture given: Previously discussed Narcan education provided: Previously discussed Narcan prescription: active Will update PCP with BPI & DAVID scoring. Ximena Muhammad will continue taking medication as prescribed and follow up at the next [facility] visit or sooner if needed. Ximena Muhammad has verbalized understanding of care plan. Future Appointments Date Time Provider Department Center 03/03/2025 1:30 PM Denisha Cross RN MEDICINE [facility] 06/04/2025 2:30 PM Michaelle Goodman OD VISION [facility] 06/05/2025 1:30 PM Denisha Cross RN MEDICINE [facility] Denisha Cross, RN [1] Current Outpatient Medications: LORazepam (Ativan) 2 MG tablet, Take 1 tablet (2 mg) by mouth if needed in the morning and at bedtime for anxiety for up to 28 days., Disp: 56 tablet, Rfl: 0 traMADol (Ultram) 50 MG tablet, Take 1 tablet (50 mg) by mouth every 6 (six) hours if needed for severe pain for up to 28 days. Do not start before January 30, 2025., Disp: 112 tablet, Rfl: 0 acetaminophen (Tylenol 8 Hour) 650 MG ER tablet, Take 1 tablet (650 mg) by mouth every 8 (eight) hours if needed for mild pain. Do not crush, chew, or split., Disp: 21 tablet, Rfl: 0 albuterol (2.5 MG/3ML) 0.083% nebulizer solution, INHALE 1 AMPULE USING A NEBULIZER EVERY 6 HOURS NEEDED FOR WHEEZING, Disp: 90 mL, Rfl: 1 amLODIPine (Norvasc) 10 MG tablet, TAKE 1 TABLET BY MOUTH DAILY, Disp: , Rfl: cetirizine (ZyrTEC) 10 MG tablet, Take 1 tablet (10 mg) by mouth Once per day., Disp: 90 tablet, Rfl: 2 Diclofenac Sodium 1 % gel, Apply 2 g topically if needed in the morning, at noon, in the evening, and at bedtime (pain)., Disp: 150 g, Rfl: 3 docusate sodium (Colace) 100 MG capsule, TAKE 1 CAPSULE BY MOUTH TWICE DAILY NEEDED, Disp: 180 capsule, Rfl: 1 DULoxetine (Cymbalta) [address] capsule, TAKE 1 CAPSULE BY MOUTH EVERY DAY, Disp: 30 capsule, Rfl: 0 ezetimibe (Zetia) 10 MG tablet, TAKE 1 TABLET BY MOUTH DAILY, Disp: , Rfl: famotidine (Pepcid) 40 MG tablet, TAKE 1 TABLET BY MOUTH AT BEDTIME, Disp: , Rfl: fenofibrate (Tricor) 54 MG tablet, TAKE 1 TABLET BY MOUTH EVERY DAY, Disp: , Rfl: fluticasone (Flonase) 50 MCG/ACT nasal spray, USE 2 SPRAYS IN EACH NOSTRIL EVERY DAY, Disp: , Rfl: gabapentin (Neurontin) 400 MG capsule, TAKE 1 CAPSULE BY MOUTH TWICE DAILY IN THE MORNING AND AT NOON and TAKE 2 CAPSULES AT BEDTIME, Disp: 120 capsule, Rfl: 5 lisinopril 5 MG tablet, TAKE 1 TABLET BY MOUTH EVERY DAY, Disp: 90 tablet, Rfl: 1 LORazepam (Ativan) 2 MG tablet, TAKE 1 TABLET BY MOUTH TWICE DAILY IN THE MORNING AND IN THE EVENING NEEDED FOR ANXIETY., Disp: 56 tablet, Rfl: 0 montelukast (Singulair) 10 MG tablet, Take 1 tablet (10 mg) by mouth at bedtime., Disp: 90 tablet, Rfl: 0 Multiple Vitamins-Iron (Tab-A-Colton/Iron) tablet, TAKE 1 TABLET BY MOUTH EVERY DAY WITH FOOD, Disp: 90 tablet, Rfl: 3 naloxone (Narcan) 4 mg/0.1 mL nasal spray, FOR SUSPECTED OPIOID OVERDOSE. SPRAY 0.1mL IN ONE NOSTRIL. REPEAT IN ALTERNATE NOSTRIL 2-3 MINUTES IF NEEDED. SEEK MEDICAL ATTENTION IMMEDIATELY EVEN IF PATIENT RESPONDS., Disp: 2 each, Rfl: 3 pantoprazole (ProtoNix) 40 MG EC tablet, TAKE 1 TABLET BY MOUTH TWICE DAILY BEFORE MEALS, Disp: 180tablet, Rfl: 1 Repatha SureClick 140 MG/ML injection, INJECT 140 MG (1 PEN) SUBCUTANEOUSLY EVERY 2 WEEKS, Disp: , Rfl: Roflumilast 250 MCG tablet, Take 1 tablet by mouth daily, Disp: , Rfl: rosuvastatin (Crestor) 40 MG tablet, TAKE 1 TABLET BY MOUTH EVERY DAY, Disp: , Rfl: SUMAtriptan (Imitrex) 50 MG tablet, TAKE 1 TABLET BY MOUTH AT ONSET OF MIGRAINE. MAY REPEAT ONCE AFTER 2 HOURS IF NEEDED, DO NOT EXCEED 2 TABLETS PER DAY, Disp: , Rfl: Ventolin HFA 108 (90 Base) MCG/ACT inhaler, INHALE 2 PUFFS EVERY 6 HOURS NEEDED FOR WHEEZING, Disp: 18 g, Rfl: 1 zolpidem (Ambien) 10 MG tablet, TAKE 1 TABLET BY MOUTH AT BEDTIME NEEDED FOR SLEEP, Disp: 7 tablet, Rfl: 0 documented in this encounter Plan of Treatment Upcoming Encounters Date Type Department Care Team (Late st Contact Info) Description 06/04/2025 2:30 PM EST Office Visit [facility] OPTOMETRY [address] [place] [address] Rex, Michaelle, OD [address] [place] [address] 06/05/2025 1:30 PM EST Clinical Support [facility] MEDICINE [address] [place] [address] Denisha Cross, RN documented as of this encounter Procedures Procedure Name Priority Date/Time Associated Diagnosis Comments POCT ELISEO-14 URINE DRUG SCREEN Routine 03/03/2025 1:02 PM EDT Long-term current use of opiate analgesic Long-term current use of benzodiazepine documented in this encounter Results * POCT ELISEO-14 Urine Drug Screen (03/03/2025 1:02 PM EDT) THC Negative Negative Cocaine Screen, Urine Negative Negative Opiate Screen, Urine Negative Negative Methamphetamine Screen Urine Negative Negative Amphetamine Screen, Urine Negative Negative Benzodiazepines Screen, Urine Positive Negative Barbiturate Screen, Urine Negative Negative Methadone Screen, Urine Negative Negative Buprenophine Screen, Urine Negative Negative TCA, Urine Negative Negative MDMA Urine Negative Negative ng/mL Oxycodone Screen, Urine Negative Negative Phencyclidine (PCP), Urine Negative Negative Propoxyphene, Urine Negative Negative Fentanyl, Urine Negative Negative Urine Urine specimen obtained by clean catch procedure / Unknown 03/03/2025 1:02 PM EDT Denisha Schroeder RN - 03/03/2025 1:02 PM EDT UTOX cup Lot#[id number] Exp. 04/01/26 Internal Pass Control Ava Yap DO POINT OF CARE TEST ENTER/HILARIO T ORDERABLES Final Result documented in this encounter Visit Diagnoses Diagnosis Long-term current use of opiate analgesic- Primary Encounter for long-term (current) use of other medications Long-term current use of benzodiazepine documented in this encounter Additional Health Concerns Assessment Noted Time PHQ-9 Depression Total Score: 5 06/22/20 10:59 AM EST documented as of this encounter Care Teams Spindle Sander Relationship Specialty Start Date End Date Ava Yap DO [address] [place] [address] PCP - General Family Medicine 03/28/11 Avelina Hodges Shirt OperatorSeafood Manager 04/21/23 documented as of this encounter
--- OUTSIDE RECORDS SUMMARY | 2025-03-03 15:41 | XMS_ITS | Encounter Summary ---
Author Organization [employer] Address [address] [place] [address] [address] [place] [address] Care Team Providers Care Occupational Therapy Professor Name Role Phone Ava Yap DO Primary Care Provider + [phone] Reason for Visit * Reason Onset Date Comments Prior Authorization 10/16/2024 Encounter Details Date Type Department Care Team (Late st Contact Info) Description 10/16/[address] [facility] CHC MED & PEDS [address] [place] [address] Ava Yap DO [address] [place] [address] Prior Authorization Social History Tobacco Use Types [...] Description 06/04/2025 2:30 PM EST Office Visit [facility] OPTOMETRY [address] [place] [address] Michaelle Goodman, OD [address] [place] [address] 06/05/2025 1:30 PM EST Clinical Support [facility] MEDICINE [address] [place] [address] Denisha Cross RN documented as of this encounter Visit Diagnoses Not on filedocumented in this encounter Additional Health Concerns Assessment Noted Time PHQ-9 Depression Total Score: 5 06/22/20 10:59 AM EST documented as of this encounter Care Teams Occupational Therapy Professor Relationship Specialty Start Date End Date Ava Yap DO [address] [place] [address] PCP - General Family Medicine 03/28/11 Avelina Hodges Modeling And Simulation AnalystOrthopedic Assistant 04/21/23 documented as of this encounter
--- OUTSIDE RECORDS SUMMARY | 2025-03-03 15:41 | XMS_ITS | Encounter Summary ---
Author Organization [employer] Address 75 [facility] 7 [place] [address] Care Team Providers Care Roofer Helper Name Role Phone Ava Yap DO Primary Care Provider + [phone] Reason for Visit * Reason Comments Med Refill Encounter Details Date Type Department Care Team ([facility] st Contact Info) Description 05/03/2024 Refill [facility] MEDICINE [address] [place], [place] [phone] Ava Yap DO [address] [place], [place] [phone] Anxiety; Chronic pain of both knees Social [...] Description 06/04/2025 2:30 PM EST Office Visit [facility] OPTOMETRY [address] [place] [address] Michaelle Goodman, OD [address] [place] [address] 06/05/2025 1:30 PM EST Clinical Support [facility] MEDICINE [address] [place] [address] Denisha Cross, DEVI documented as of this encounter Visit Diagnoses Diagnosis Anxiety Anxiety state, unspecified Chronic pain of both knees documented in this encounter Additional Health Concerns Assessment Noted Time PHQ-9 Depression Total Score: 5 06/22/20 10:59 AM EST documented as of this encounter Care Teams Roofer Helper Relationship Specialty Start Date End Date Ava Yap DO [address] [place] [address] PCP - General Family Medicine 03/28/11 Avelina Hodges Network AdminEducation Managers 04/21/23 documented as of this encounter
--- OUTSIDE RECORDS SUMMARY | 2025-03-03 15:41 | XMS_ITS | Encounter Summary ---
Author Organization [employer] Address 75 [facility] 7t [place] [address] Care Team Providers Care Evening Anchor Name Role Phone MaurilioAva arellano Primary Care Provider + [phone] Reason for Visit * Reason Comments Med Refill Encounter Details Date Type Department Care Team ([facility] st Contact Info) Description 03/03/2025 Refill [facility] CHC MED & PEDS [address] [place] [address] Vesna Sanabria MD [address] [place] [address] Chronic pain of both knees Social History [...] edge 2 01/2025 1:13 PM EDT Denisha Cross RN Not being able to stop or [...] Cross RN documented as of this encounter Miscellaneous Notes * Telephone Encounter - Denisha Cross RN - 03/03/2025 1:54 PM EDT Pt had DAIRY TECHNOLOGIST appt today and had 33 Tramadol remaining. Refill too soon. documented in this encounter Plan of Treatment Upcoming Encounters Date Type Department Care Team (Late st Contact Info) Description 06/04/2025 2:30 PM EST Office Visit [facility] OPTOMETRY [address] [place], [place] [phone] Michaelle Goodman, OD [address] [place] [address] 06/05/2025 1:30 PM EST Clinical Support [facility] MEDICINE [address] [place], [place] [phone] Densiha Cross, RN documented as of this encounter Visit Diagnoses Diagnosis Chronic pain of both knees documented in this encounter Additional Health Concerns Assessment Noted Time PHQ-9 Depression Total Score: 5 06/22/20 23 10:59 AM EST documented as of this encounter Care Teams Evening Anchor Relationship Specialty Start Date End Date Ava Yap DO [address] [place], [place] [phone] PCP - General Family Medicine 03/28/11 Avelina Hodges Bilingual Student TutorAuto Repair Shop Manager 04/21/23 documented as of this encounter
--- OUTSIDE RECORDS SUMMARY | 2025-03-03 15:41 | XMS_ITS | Encounter Summary ---
Author Organization [employer] Address 75 [facility] 7 [place] [address] Care Team Providers Care Rounder Hand Name Role Phone Fracisco Ava Primary Care Provider + [phone] Reason for Visit * Reason Comments Med Refill Encounter Details Date Type Department Care Team ([facility] st Contact Info) Description 02/28/2024 Refill [facility] [address] [place], [place] [phone] Johan Kraft MD [address] [place] [address] Social History Tobacco Use Types Packs/Day Years [...] Description 06/04/2025 2:30 PM EST Office Visit [facility] OPTOMETRY [address] [place] [address] Michaelle Goodman, OD [address] [place] [address] 06/05/2025 1:30 PM EST Clinical Support [facility] MEDICINE [address] [place] [address] Denisha Cross RN documented as of this encounter Visit Diagnoses Not on filedocumented in this encounter Additional Health Concerns Assessment Noted Time PHQ-9 Depression Total Score: 5 06/22/20 23 10:59 AM EST documented as of this encounter Care Teams Rounder Hand Relationship Specialty Start Date End Date Ava Yap DO [address] [place] [address] PCP - General Family Medicine 03/28/11 Avelina Hodges Format ProofreaderContact Lens Lathe Operator 04/21/23 documented as of this encounter
--- OUTSIDE RECORDS SUMMARY | 2025-03-03 15:41 | XMS_ITS | Encounter Summary ---
Author Organization [employer] Address 75 [facility] 7 [place] [address] Care Team Providers Care Fire Production Operator Name Role Phone FraciscoAva Primary Care Provider + [phone] Reason for Visit * Reason Comments Med Refill Encounter Details Date Type Department Care Team ([facility] st Contact Info) Description 08/04/2023 Refill [facility] MEDICINE [address] [place], [place] [phone] Svetlana Mccollum MD [address] [place], [place] [phone] Anxiety Social History Tobacco Use Types Packs/Day [...] Description 06/04/2025 2:30 PM EST Office Visit [facility] OPTOMETRY [address] [place] [address] Michaelle Goodman, OD [address] [place] [address] 06/05/2025 1:30 PM EST Clinical Support [facility] MEDICINE [address] [place] [address] Denisha Cross RN documented as of this encounter Visit Diagnoses Diagnosis Anxiety Anxiety state, unspecified documented in this encounter Additional Health Concerns Assessment Noted Time PHQ-9 Depression Total Score: 5 06/22/20 10:59 AM EST documented as of this encounter Care Teams Fire Production Operator Relationship Specialty Start Date End Date Ava Yap DO [address] [place] [address] PCP - General Family Medicine 03/28/11 Avelina Hodges Commercial Relationship ManagerStorm Sash Maker 04/21/23 documented as of this encounter
--- OUTSIDE RECORDS SUMMARY | 2025-03-03 15:41 | XMS_ITS | Encounter Summary ---
Author Organization [employer] Address [address] [place] [address] [address] [address] Care Team Providers Care First Aid Teacher Name Role Phone Ava Yap DO Primary Care Provider + [phone] Encounter Details Date Type Department Care Team (Late Contact Info) Description 07/19/[address] [phone] Ava aYp DO [address] [place] [address] Social History Tobacco Use Types Packs/Day Years [...] Department Care Team (Late Contact Info) Description 06/04/2025 2:30 PM EST Office Visit [facility] OPTOMETRY [address] [place], [place] [phone] Michaelle Goodman, OD [address] [place] [address] 06/05/2025 1:30 PM EST Clinical Support [facility] MEDICINE [address] [place] [address] Denisha Cross, RN documented as of this encounter Visit Diagnoses Not on filedocumented in this encounter Care Teams First Aid Teacher Relationship Specialty Start Date End Date Ava Yap DO [address] [place] [address] PCP - General Family Medicine 03/28/11 Avelina Hodges Die Cutter DiamondProperty Maintenance Technician 04/21/23 documented as of this encounter
--- OUTSIDE RECORDS SUMMARY | 2025-03-03 15:41 | XMS_ITS | Encounter Summary ---
Author Organization [employer] Address 75 [facility] 7 [place] [address] Care Team Providers Care Golf Teacher Name Role Phone DavidAva neff Primary Care Provider + [phone] Encounter Details Date Type Department Care Team (Latest Contact Info) Description 03/03/2025 Travel Social History Tobacco Use Types Packs/Day [...] Cross RN documented as of this encounter Plan of Treatment Upcoming Encounters Date Type Department Care Team (Late st Contact Info) Description 06/04/2025 2:30 PM EST Office Visit [facility] OPTOMETRY [address] [place] [address] Michaelle Goodman, OD [address] [place] [address] 06/05/2025 1:30 PM EST Clinical Support [facility] MEDICINE [address] [place] [address] Denisha Cross, RN documented as of this encounter Visit Diagnoses Not on filedocumented in this encounter Additional Health Concerns Assessment Noted Time PHQ-9 Depression Total Score: 5 06/22/20 10:59 AM EST documented as of this encounter Care Teams Golf Teacher Relationship Specialty Start Date End Date Ava Yap DO [address] [place] [address] PCP - General Family Medicine 03/28/11 Avelina Hodges [employer] English TeacherBoat Hop 04/21/23 documented as of this encounter
--- OUTSIDE RECORDS SUMMARY | 2025-03-03 15:41 | XMS_ITS | Encounter Summary ---
Author Organization [employer] Address [address] [place] [address] 7 [place] [address] Care Team Providers Care Product Technology Scientist Name Role Phone Ava Yap DO Primary Care Provider + [phone] Reason for Visit * Reason Comments Med Refill Encounter Details Date Type Department Care Team ([facility] st Contact Info) Description 07/04/2023 Refill [facility] [address] [place], [place] [phone] Ava Yap DO 230 [place], [place] [phone] Anxiety; Chronic bilateral low back pain, unspecified [...] Description 06/04/2025 2:30 PM EST Office Visit [facility] [address] [place] [address] Michaelle Goodman, OD 230 [place] [address] 06/05/2025 1:30 PM EST Clinical Support [facility] [address] [place] [address] Denisha Cross, DEVI documented as of this encounter Visit Diagnoses Diagnosis Anxiety Anxiety state, unspecified Chronic bilateral low back pain, unspecified whether sciatica present documented in this encounter Additional Health Concerns Assessment Noted Time PHQ-9 Depression Total Score: 5 06/22/20 10:59 AM EST documented as of this encounter Care Teams Product Technology Scientist Relationship Specialty Start Date End Date Ava Yap DO 230 [place] [address] PCP - General Family Medicine 03/28/11 Avelina Hodges Product MgrBreastfeeding Program Coordinator 04/21/23 documented as of this encounter
--- OUTSIDE RECORDS SUMMARY | 2025-03-03 15:41 | XMS_ITS | Encounter Summary ---
Author Organization [employer] Address [address] [facility] 7 [place] [address] Care Team Providers Care Reading Intervention Teacher Name Role Phone Ava Yap DO Primary Care Provider + [phone] Reason for Visit * Reason Onset Date Comments Med Refill Schedule CERTIFIED LACTATION EDUCATOR Initial 04/26/2023 Encounter Details Date Type Department Care Team (Late st Contact Info) Description 04/26/2023 Refill [facility] [address] [place] [address] Ava Yap DO 230 [place] [address] Anxiety; Chronic bilateral low back pain, unspecified [...] - 04/26/2023 11:55 AM EDT TC via P/I#[id number], male voice answered, stated pt was not available. L/M with Rich requesting pt call back to schedule CERTIFIED LACTATION EDUCATOR Initial appt. documented in this encounter Plan of Treatment Upcoming Encounters Date Type Department Care Team (Late st Contact Info) Description 06/04/2025 2:30 PM EST Office Visit [facility] [address] [place] [address] Rex, Michaelle, OD 230 [place] [address] 06/05/2025 1:30 PM EST Clinical Support [facility] [address] [place] [address] Denisha Cross, RN documented as of this encounter Visit Diagnoses Diagnosis Anxiety Anxiety state, unspecified Chronic bilateral low back pain, unspecified whether sciatica present documented in this encounter Additional Health Concerns Assessment Noted Time PHQ-9 Depression Total Score: 21 023 10:23 AM EDT documented as of this encounter Care Teams Reading Intervention Teacher Relationship Specialty Start Date End Date Ava Yap DO [address] [place] [address] PCP - General Family Medicine 03/28/11 Avelina Hodges Esthetician Permanent Makeup ArtistVp Platforms 04/21/23 documented as of this encounter
--- OUTSIDE RECORDS SUMMARY | 2025-03-03 15:41 | XMS_ITS | Encounter Summary ---
Author Organization [employer] Address [address] [place] [address] 7 [place] [address] Care Team Providers Care Geotechnical Engineer Name Role Phone MaurilioAva arellano Primary Care Provider + [phone] Reason for Visit * Reason Comments Med Refill Encounter Details Date Type Department Care Team ([facility] st Contact Info) Description 08/04/2023 Refill [facility] [address] [place], [place] [phone] Vesna Sanabria MD 230 [place] [address] Chronic bilateral low back pain, unspecified whether [...] Description 06/04/2025 2:30 PM EST Office Visit [facility] [address] [place] [address] Michaelle Goodman, OD 230 [place] [address] 06/05/2025 1:30 PM EST Clinical Support [facility] [address] [place] [address] Denisha Cross, DEVI documented as of this encounter Visit Diagnoses Diagnosis Chronic bilateral low back pain, unspecified whether sciatica present documented in this encounter Additional Health Concerns Assessment Noted Time PHQ-9 Depression Total Score: 5 06/22/20 10:59 AM EST documented as of this encounter Care Teams Geotechnical Engineer Relationship Specialty Start Date End Date Ava Yap DO 230 [place] [address] PCP - General Family Medicine 03/28/11 Avelina Hodges Rope Tow OperatorCutter Woodwind Reeds 04/21/23 documented as of this encounter
--- OUTSIDE RECORDS SUMMARY | 2025-03-03 15:41 | XMS_ITS | Encounter Summary ---
Author Organization [employer] Address [address] [place] [address] 7 [place] [address] Care Team Providers Care Fast Food Supervisor Name Role Phone Ava Yap DO Primary Care Provider + [phone] Reason for Visit * Reason Comments Med Refill Encounter Details Date Type Department Care Team ([facility] st Contact Info) Description 07/05/2023 Refill [facility] [address] [place], [place] [phone] Ava Yap DO 230 [place], [place] [phone] Chronic bilateral low back pain, unspecified whether [...] Description 06/04/2025 2:30 PM EST Office Visit [facility] [address] [place] [address] Michaelle Goodman, OD 230 [place] [address] 06/05/2025 1:30 PM EST Clinical Support [facility] [address] [place] [address] Denisha Cross, DEVI documented as of this encounter Visit Diagnoses Diagnosis Chronic bilateral low back pain, unspecified whether sciatica present Anxiety Anxiety state, unspecified documented in this encounter Additional Health Concerns Assessment Noted Time PHQ-9 Depression Total Score: 5 06/22/20 10:59 AM EST documented as of this encounter Care Teams Fast Food Supervisor Relationship Specialty Start Date End Date Ava Yap DO [address] [place] [address] PCP - General Family Medicine 03/28/11 Avelina Hodges Game Farm HelperFabrication Engineer 04/21/23 documented as of this encounter
--- OUTSIDE RECORDS SUMMARY | 2025-03-03 15:41 | XMS_ITS | Encounter Summary ---
Author Organization [employer] Address [address] [facility] 7 [place] [address] Care Team Providers Care Retreader Name Role Phone Ava Yap DO Primary Care Provider + [phone] Reason for Visit * Reason Comments Med Refill Encounter Details Date Type Department Care Team ([facility] st Contact Info) Description 05/03/2024 Refill [facility] 230 [place], [place] [phone] Ava Yap DO 230 [place], [place] [phone] Anxiety; Chronic pain of both knees Social [...] 2:30 PM EST Office Visit [facility] [address] [place] [address] Michaelle Goodman, OD 230 [place] [address] 06/05/2025 1:30 PM EST Clinical Support [facility] [address] [place] [address] Denisha Cross, DEVI documented as of this encounter Visit Diagnoses Diagnosis Anxiety Anxiety state, unspecified Chronic pain of both knees documented in this encounter Additional Health Concerns Assessment Noted Time PHQ-9 Depression Total Score: 5 06/22/20 10:59 AM EST documented as of this encounter Care Teams Retreader Relationship Specialty Start Date End Date Ava Yap DO 230 [place] [address] PCP - General Family Medicine 03/28/11 Avelina Hodges Cement Sack BreakerDrama Director 04/21/23 documented as of this encounter
--- OUTSIDE RECORDS SUMMARY | 2025-03-03 15:41 | XMS_ITS | Encounter Summary ---
Author Organization [employer] Address [address] [place] [address], [place] [address] Care Team Providers Care Senior Search Marketing Analyst Name Role Phone Ava Yap DO Primary Care Provider + [phone] Encounter Details Date Type Department Care Team ([facility] Contact Info) Description 07/18/2022 Orders Only [facility] [address] [place], [place] [phone] Ava Holt LPN Social History Tobacco Use [...] Description 06/04/2025 2:30 PM EST Office Visit [facility] [address] [place], [place] [phone] Michaelle Goodman, OD 230 [place], [place] [phone] 06/05/2025 1:30 PM EST Clinical Support [facility] 230 [place], [place] [phone] Denisha Cross RN documented as of this [...] AM EST) Influenza A PCR NEGATIVE Negative [facility] Influenza B PCR NEGATIVE Negative [facility] Resp Syncy Virus RNA Qual PCR NEGATIVE Negative [facility] SARS COV2 PCR NEGATIVE Negative [facility] SARS/Flu/RSV Note See Note [facility] Comment:All test results mus t be [...] use by authorized laboratories.Testing performed on the Siri GeneXpert utilizingreal-time RT-PCR.All SARS CoV2 and positive influenza A/B results arereported to [facility]. 08/12/2022 10:3 2 AM EST 08/12/2022 10:37 AM EST [facility] Exter nal Provider LAB MICROBIOLOGY - GENERAL ORDERABLES Final Result Performing Organization Address [facility] Co de Phone Number [facility] [address] [place] [address] [phone] * Sed Rate by Modified Mikalergren (08/12/2022 10:32 AM EST) Pathologist [facility] Erythrocyte Sedimentation Rate 16 0 - 20 MM/HR [facility] Comment:Patients with polycy themia and many hemoglobin abnormalitiesmay have depressed sed rates whereas patients with anemiamay have elevated sed rates. 08/12/2022 10:3 2 AM EST 08/12/2022 10:37 AM EST [facility] External Provider LAB BLO OD ORDERABLES Final Result Performing Organization Address [facility] Co de Phone Number [facility] [address] [place] [address] [phone] * C-reactive Protein (08/12/2022 10:32 AM EST) Pathologist [facility] C Reactive Protein 0.41 < or = 0.50 mg/dL [facility] 08/12/2022 10:3 2 AM EST 08/12/2022 10:37 AM EST [facility] External Provider LAB BLO OD ORDERABLES Final Result Performing Organization Address [facility] Co de Phone Number [facility] [address] [place] [address] [phone] * (ABNORMAL) Basic Metabolic Panel (08/12/2022 10:32 AM EST) Pathologist [facility] Sodium 142 135 - 145 mmol/L [facility] Potassium 4.3 3.3 - 5.1 mmol/L [facility] Chloride 109(H) 96 - 108 mmol/L [facility] Carbon Dioxide 23 22 - 29 mmol/L [facility] Anion Gap 14 12 - 20 [facility] Urea Nitrogen (BUN) 11 9 - 16 mg/dL [facility] Creatinine, Serum 0.76 0.5 - 1.4 mg/dL [facility] Creatinine Clr Calc Pharmacy 92.0 [facility] Comment:Provided height and weight: 149.86 cm,99.79 kg.eGFR (calculated from the MDRD study equation) and eCrCl(calculated from the Cockcroft-Gault equation) are based ondifferent parameters and may not yield comparable results.If eCrCl result is absurd, please check patient'sheight/weight. Estimated Glomerular Filt Rate >60 [facility] Comment:NOTE: For -Am erican individuals, multiply the result by 1.210.Chronic Kidney Disease: Estimated GFR < 60 mL/min/1.44d0Uyutyi Kidney Disease: Estimated GFR < 15 mL/min/1.73m2 Glucose 113 60 - 115 mg/dL [facility] Calcium 9.7 8.4 - 10.2 mg/dL [facility] 08/12/2022 10:3 2 AM EST 08/12/2022 10:37 AM EST us [facility] External Provider LAB BLO OD ORDERABLES Final Result [facility] [address] [place], [place] [phone] * (ABNORMAL) CBC auto differential (08/12/2022 10:32 AM EST) White Blood Count 5.9 4.8 - 10.8 X10*3/uL [facility] Red Blood Count 4.44 4.20 - 5.50 X10*6/uL [facility] Hemoglobin 13.4 12.0 - 16.0 g/dl [facility] Hematocrit 40.5 37.0 - 47.0 % [facility] Mean Corpuscular Volume 91.2 80.0 - 98.0 fL [facility] Mean Corpuscular Hemoglobin 30.2 27.0 - 33.0 pg [facility] Mean Corpuscular HGB Conc 33.1 31.0 - 35.0 g/dl [facility] Red Cell Distribution Width 13.2 11.0 - 16.0 % [facility] Platelet Count 252 160 - 400 X10*3/uL [facility] Mean Platelet Volume 10.7 9.4 - 12.3 fL [facility] Neutrophils Percent Auto 49.0 45 - 73 % [facility] Imm Gran Pct Auto 0.2 0.0 - 0.4 % [facility] Lymphocytes Percent Auto 40.9(H) 20 - 40 % [facility] Monocytes Percent Auto 8.8 2 - 11 % [facility] Eosinophils Percent Auto 0.8 0 - 4 % [facility] Basophils Percent Auto 0.3 0 - 2 % [facility] NRBC Pct Auto 0.0 0.0 - 0.2 /100WBC [facility] Neutrophils Absolute Auto 2.9 2.0 - 8.3 x10*3/uL [facility] Imm Gran Abs Auto 0.01 0.00 - 0.03 X10*3/uL [facility] Lymphocytes Absolute Auto 2.4 1.2 - 4.9 X10*3/uL [facility] Monocytes Absolute Auto 0.5 0.1 - 1.2 X10*3/uL [facility] Eosinophils Absolute Auto 0.1 0.0 - 0.4 X10*3/uL [facility] Basophils Absolute Auto 0.0 0.0 - 0.2 X10*3/uL [facility] NRBC Abs Auto 0.000 0.0 - 0.012 X10*3/uL [facility] 08/12/2022 10:3 2 AM EST 08/12/2022 10:37 AM EST us [facility] External Provider LAB BLO OD ORDERABLES Final Result [facility] [address] [place] [phone] * Strep A Nucleic Acid (08/12/2022 9:10 AM EST) IDNOW SERIAL# [id number] [facility] Strep A Nucleic Acid Negative Negative [facility] Comment:All test results mus t be correlated with clinical findings.This test has not been evaluated for monitoring treatment ofinfection.Additional follow-up testing using the culture method isrequired if the result is negative and clinical symptomspersist, or in the event of an acute rheumatic feveroutbreak. 08/12/2022 9:10 AM EST 08/12/2022 9:12 AM EST us [facility] Exter nal Provider LAB MICROBIOLOGY - GENERAL ORDERABLES Final Result Performing Organization Address City/State/[facility] Co de Phone Number [facility] [address] [place] [phone] * CT Chest w/o Contrast (08/09/2022 9:07 AM EST) Anatomical Region Laterality Modality Body, Chest Computed Tomogra phy 08/09/2022 9:07 AM EST Narrative 08/13/2022 11:33 AM EST [address] [address] [address] Scan Report Signed Patient: Ximena Xiong MR#: [id number] : 1970 Acct:[id number] Age/Sex: 51 / F ADM Date: 08/09/22 Loc: HO.CT Attending Dr: Ava Yap DO Ordering Physician: Ava Yap DO Date of Service: 08/09/22 Procedure(s): CT chest wo IV con Accession Number(s): [id number] cc: Ava Yap DO EXAMINATION: CT CHEST [...] in OV> 08/13/22 1131 DD/ 0907 TD/TT: Cotton Classer: SS Procedure Note Donotuseinterpreter, Image - 08/13/[address] [address] [address] Scan Report Signed Patient: Kody Xiong#: [id number] : 1970Acct:[id number] Age/Sex: 51 / FADM Date: 08/09/22 Loc: HO.CT Attending Dr: Ava Yap DO Ordering Physician: Ava Yap DO Date of Service: 08/09/22 Procedure(s): CT chest wo IV con Accession Number(s): [id number] cc: Ava Yap DO EXAMINATION: CT CHEST [...] in OV> 08/13/22 1131 DD/ 0907 TD/TT: Cotton Classer: SS [facility] External Provider IMG CT PROCEDURES Edited Result - Final documented in this encounter Visit Diagnoses Not on filedocumented in this encounter Care Teams Senior Search Marketing Analyst Relationship Specialty Start Date End Date Ava Yap DO [address] [place] [address] PCP - General Family Medicine 03/28/11 Avelina Hodges Channel LayerService Rig Operator 04/21/23 documented as of this encounter
--- OUTSIDE RECORDS SUMMARY | 2025-03-03 15:41 | XMS_ITS | Encounter Summary ---
Author Organization [employer] Address [address] [facility] [address] [place] [address] Care Team Providers Care Nursing Education Consultant Name Role Phone Ava Yap DO Primary Care Provider + [phone] Reason for Visit * Reason Comments Med Refill Encounter Details Date Type Department Care Team ([facility] st Contact Info) Description 12/14/2023 Refill [facility] [address] [place], [place] [phone] Ava Yap DO 230 [place], [place] [phone] Anxiety Social History Tobacco Use Types Packs/Day [...] Description 06/04/2025 2:30 PM EST Office Visit [facility] [address] [place] [address] Michaelle Goodman, OD [address] [place] [address] 06/05/2025 1:30 PM EST Clinical Support [facility] [address] [place] [address] Denisha Cross RN documented as of this encounter Visit Diagnoses Diagnosis Anxiety Anxiety state, unspecified documented in this encounter Additional Health Concerns Assessment Noted Time PHQ-9 Depression Total Score: 5 06/22/20 10:59 AM EST documented as of this encounter Care Teams Nursing Education Consultant Relationship Specialty Start Date End Date Ava Yap DO 230 [place] [address] PCP - General Family Medicine 03/28/11 Avelina Hodges Computational Theory ScientistForensic Nurse 04/21/23 documented as of this encounter
--- OUTSIDE RECORDS SUMMARY | 2025-03-03 15:41 | XMS_ITS | Clinical Summary ---
Author Organization [facility] Address [address] [place] [address] Care Team Providers Care Chief Deputy Court Clerk Name Role Phone Pcp, No Primary Care [...] Vaccine (1 of 2) 12/05/2021 Influenza Vaccine 01/24/2025 COVID-19 Vaccine (3 - 2024- season) 2025, 10/03/2020 Insurance [facility] Care Teams Chief Deputy Court Clerk Relationship Specialty Start Date End Date Pcp, No PCP - General General Medicine 08/12/22
--- OUTSIDE RECORDS SUMMARY | 2025-03-03 15:41 | XMS_ITS | Encounter Summary ---
Author Organization [employer] Address [address] [place] [address] 7 [place] [address] Care Team Providers Care Equipment Coordinator Name Role Phone MaurilioAva arellano Primary Care Provider + [phone] Reason for Visit * Reason Onset Date Comments BPI & DAVID Scoring 03/03/2025 Encounter Details Date Type Department Care Team ([facility] st Contact Info) Description 03/03/2025 Telephone [facility] [address] [place] [address] Denisha Cross RN BPI & DAVID Scoring Social History Tobacco Use Types Packs/Day Years [...] to sit still 2 03/03/2025 1:13 PM LYLET Denisha Cross RN Becoming easily annoyed or irritable 1 01/2025 1:13 PM EDT Denisha Cross RN Feeling afraid as if somethi ng awful might happen 3 03/03/2025 1:13 PM EDT Denisha Cross RN DAVID-7 Total Score 16 03/03/2025 1:13 PM EDT Denisha Cross RN documented as of this encounter Miscellaneous Notes * Telephone Encounter - Denisha Cross RN - 03/03/2025 1:16 PM EDT Pt had DIRECT OF REAL ESTATE RV appt today BPI completed on: 03/03/2025 , pain severity score: 6, activity interference score: 7 BPI completed on: 08/29/2024 , pain severity score: 7, activity interference score: 5 DAVID-7 Total Score: 16 (03/03/2025 1:13 PM) Previous DAVID-7 done: 08/29/2024, score: 13 documented in this encounter Plan of Treatment Upcoming Encounters Date Type Department Care Team (Late st Contact Info) Description 06/04/2025 2:30 PM EST Office Visit [facility] [address] [place] [address] Rex, Michaelle, OD 230 [place], [place] [phone] 06/05/2025 1:30 PM EST Clinical Support [facility] [address] [place] [address] Denisha Cross, RN documented as of this encounter Visit Diagnoses Not on filedocumented in this encounter Additional Health Concerns Assessment Noted Time PHQ-9 Depression Total Score: 5 06/22/20 23 10:59 AM EST documented as of this encounter Care Teams Equipment Coordinator Relationship Specialty Start Date End Date Ava Yap DO 230 [place], [place] [phone] PCP - General Family Medicine 03/28/11 Avelina Hodges Oxygen Therapy TeacherGeological Sample Tester 04/21/23 documented as of this encounter
--- OUTSIDE RECORDS SUMMARY | 2025-03-03 15:41 | XMS_ITS | Encounter Summary ---
Author Organization [employer] Address [address] [place] [address] 7 [place] [address] Care Team Providers Care Cotton Presser Name Role Phone Ava Yap DO Primary Care Provider + [phone] Reason for Visit * Reason Comments Med Refill Encounter Details Date Type Department Care Team ([facility] st Contact Info) Description 03/22/[address] [facility] [address] [place], [place] [phone] Ava Yap DO 230 [place], [place] [phone] Chronic low back pain, unspecified back pain [...] 06/04/2025 2:30 PM EST Office Visit [facility] [address] [place] [address] Michaelle Goodman, OD [address] [place] [address] 06/05/2025 1:30 PM EST Clinical Support [facility] [address] [place] [address] Denisha Cross, DEVI documented as of this encounter Visit Diagnoses Diagnosis Chronic low back pain, unspecified back pain laterality, unspecified whether sciatica present documented in this encounter Additional Health Concerns Assessment Noted Time PHQ-9 Depression Total Score: 5 06/22/20 10:59 AM EST documented as of this encounter Care Teams Cotton Presser Relationship Specialty Start Date End Date Ava Yap DO 230 [place], [place] [phone] PCP - General Family Medicine 03/28/11 Avelina Hodges Display Department ManagerDirector Of Admissions 04/21/23 documented as of this encounter
--- OUTSIDE RECORDS SUMMARY | 2025-03-03 15:41 | XMS_ITS | Encounter Summary ---
Author Organization [employer] Address [address] [place] [address] 7 [place] [address] Care Team Providers Care Construction Operations Manager Name Role Phone Ava Yap DO Primary Care Provider + [phone] Reason for Visit * Reason Comments Med Refill Encounter Details Date Type Department Care Team ([facility] st Contact Info) Description 01/29/2024 Refill [facility] [address] [place], [place] [phone] Ava Yap DO 230 [place], [place] [phone] Anxiety; Chronic bilateral low back pain, unspecified [...] Description 06/04/2025 2:30 PM EST Office Visit [facility] [address] [place] [address] Michaelle Goodman, OD 230 [place] [address] 06/05/2025 1:30 PM EST Clinical Support [facility] [address] [place] [address] Denisha Cross, DEVI documented as of this encounter Visit Diagnoses Diagnosis Anxiety Anxiety state, unspecified Chronic bilateral low back pain, unspecified whether sciatica present documented in this encounter Additional Health Concerns Assessment Noted Time PHQ-9 Depression Total Score: 5 06/22/20 10:59 AM EST documented as of this encounter Care Teams Construction Operations Manager Relationship Specialty Start Date End Date Ava Yap DO [address] [place] [address] PCP - General Family Medicine 03/28/11 Avelina Hodges Client ProfessionalSpecial Education Resource Room Teacher 04/21/23 documented as of this encounter
--- OUTSIDE RECORDS SUMMARY | 2025-03-03 15:41 | XMS_ITS | Encounter Summary ---
Author Organization [employer] Address [address] [place] [address] Care Team Providers Care Hand Therapist Name Role Phone Ava Yap DO Primary Care Provider + [phone] Reason for Visit * Reason Comments Med Refill Encounter Details Date Type Department Care Team (Late Contact Info) Description 11/14/2022 Refill [facility] [address] [place], [place] [phone] Ava Yap DO [address] [place] [address] Anxiety Social History Tobacco Use Types Packs/Day [...] EST Office Visit [facility] [address] [place] [address] Michaelle Goodman, OD [address] [place] [address] 06/05/2025 1:30 PM EST Clinical Support [facility] [address] [facility] [place] [address] Denisha Cross RN documented as of this encounter Visit Diagnoses Diagnosis Anxiety Anxiety state, unspecified documented in this encounter Additional Health Concerns Assessment Noted Time PHQ-9 Depression Total Score: 0 07/27/19 11:46 AM EST documented as of this encounter Care Teams Hand Therapist Relationship Specialty Start Date End Date Ava Yap DO [address] [facility] [place] [address] PCP - General Family Medicine 03/28/11 Avelina Hodges [place] Management ProfessorMechanical Maintenance Worker 04/21/23 documented as of this encounter
--- OUTSIDE RECORDS SUMMARY | 2025-03-03 15:41 | XMS_ITS | Encounter Summary ---
Author Organization [employer] Address [address] [place] [address] [address] [place] [address] Care Team Providers Care Cheese Weigher Name Role Phone Ava Yap DO Primary Care Provider + [phone] Reason for Visit * Reason Onset Date Comments telephone call 02/28/2025 Encounter Details Date Type Department Care Team ([facility] st Contact Info) Description 02/28/2025 Telephone [facility] [address] [place], [place] [phone] Ava Yap DO [address] [place], [place] [phone] telephone call Social History Tobacco Use Types Packs/Day Years [...] encounter Miscellaneous Notes * Telephone Encounter - Shalini Rizvi - 02/28/2025 9:39 AM EDT Pt walked in stating she has been waiting for a weight loss medication so she can pick it up in thepharmacy but I didn't see that the pcp prescribed this , she said she spoke to pcp about this. documented in this encounter Plan of Treatment Upcoming Encounters Date Type Department Care Team (Late st Contact Info) Description 06/04/2025 2:30 PM EST Office Visit [facility] [address] [place] [address] Michaelle Goodman, CHARLIE [address] [place] [address] 06/05/2025 1:30 PM EST Clinical Support [facility] [address] [place] [address] Denisha Cross, DEVI documented as of this encounter Visit Diagnoses Not on filedocumented in this encounter Additional Health Concerns Assessment Noted Time PHQ-9 Depression Total Score: 5 06/22/20 23 10:59 AM EST documented as of this encounter Care Teams Cheese Weigher Relationship Specialty Start Date End Date Ava Yap DO [address] [place] [address] PCP - General Family Medicine 03/28/11 Avelina Hodges Search Engine Optimization StrategistBlack Off Worker 04/21/23 documented as of this encounter
--- OUTSIDE RECORDS SUMMARY | 2025-03-03 15:42 | XMS_ITS | Encounter Summary ---
Author Organization [employer] Address [address] [place] [address] [address] Care Team Providers Care Papeterie Table Assembler Name Role Phone Ava Yap DO Primary Care Provider + [phone] Reason for Visit * Reason Onset Date Comments Appointment Request 07/16/2024 Call Back Request 07/16/2024 Encounter Details Date Type Department Care Team ([facility] st Contact Info) Description 07/16/2024 Telephone [facility] [address] [place], [place] [phone] Ava Yap DO [address] [place], [place] [phone] Appointment Request; Call Back Request Social History [...] she don't want to be without meds. [phone] documented in this encounter Plan of Treatment Upcoming Encounters Date Type Department Care Team (Late st Contact Info) Description 06/04/2025 2:30 PM EST Office Visit [facility] [address] [place] [address] Michaelle Goodman, OD [address] [place] [address] 06/05/2025 1:30 PM EST Clinical Support [facility] [address] [place] [address] Denisha Cross RN documented as of this encounter Visit Diagnoses Not on filedocumented in this encounter Additional Health Concerns Assessment Noted Time PHQ-9 Depression Total Score: 5 06/22/20 23 10:59 AM EST documented as of this encounter Care Teams Papeterie Table Assembler Relationship Specialty Start Date End Date Ava Yap DO [address] [place] [address] PCP - General Family Medicine 03/28/11 Avelina Hodges Art SupervisorAccount Receivable Clerk 04/21/23 documented as of this encounter
--- OUTSIDE RECORDS SUMMARY | 2025-03-03 15:42 | XMS_ITS | Encounter Summary ---
Author Organization [employer] Address [address] [place] [address] Care Team Providers Care Credit Specialist Name Role Phone Ava Yap DO Primary Care Provider + [phone] Reason for Visit * Reason Comments Med Refill Encounter Details Date Type Department Care Team (Late st Contact Info) Description 03/19/2023 Refill [facility] [address] [place], [place] [phone] Ava Yap DO [address] [place] [address] Social History Tobacco Use Types Packs/Day Years [...] Description 06/04/2025 2:30 PM EST Office Visit [facility] [address] [place], [place] [phone] Michaelle Goodman, OD [address] [place] [address] 06/05/2025 1:30 PM EST Clinical Support [facility] [address] [facility] [place] [address] Denisha Cross, RN documented as of this encounter Visit Diagnoses Not on filedocumented in this encounter Additional Health Concerns Assessment Noted Time PHQ-9 Depression Total Score: 21 023 10:23 AM EDT documented as of this encounter Care Teams Credit Specialist Relationship Specialty Start Date End Date Ava Yap DO [address] [facility] [place] [address] PCP - General Family Medicine 03/28/11 Avelina Hodges Body And Fender MechanicStubber 04/21/23 documented as of this encounter
--- OUTSIDE RECORDS SUMMARY | 2025-03-03 15:42 | XMS_ITS | Clinical Summary ---
Author Organization [employer] Address [address] [place] [address] [address] [place] [address] Care Team Providers Care Wire Annealer Name Role Phone Fracisco Ava Primary Care Provider [phone] Allergies Active Allergy Reactions Criticality Noted Date [...] 2 CAPSULES AT BEDTIME 120 capsule 5 025 Active zolpidem (Ambien) 10 MG tabletIndications: Anxiety TAKE 1 TABLET BY MOUTH AT BEDTIME NEEDED FOR SLEEP 7 tablet 025 Active traMADol (Ultram) 50 MG tabletIndications: Chronic pain of both knees Take 1 tablet (50 mg) by mouth every 6 (six) hours if needed for severe pain for up to 28 days. Do not start before January 30, 2025. 112 tablet 025 03/03 Active LORazepam (Ativan) 2 MG tabletIndications: Anxiety [...] 2024 Long-term current use of benzodiazepine 11/29/19 25 Severe dental caries 09/06/2024 Non-restorable tooth 09/06/2024 [...] walk in. She was initially seen at [facility] on 08/12 for neck swelling, neck pain, sore throat, and mild sob x [address] scan of soft tissue of neck showed tissue swelling at C2-C4 which possibly reflected retropharyngeal cellulitis. Therefore pt. Was transferred to [facility] for an ENT consult. ENT determined [...] Encounters Date Type Department Care Team Description 03/03/2025 1:30 PM EDT Clinical Support [facility] [address] [place] [address] Denisha Cross, RN Long-term current use of opiate analgesic (Primary Dx); Long-term current use of benzodiazepine 03/03/2025 Telephone [facility] [address] [place], [place] [phone] Denisha Cross, RN BPI & DAVID Scoring 03/03/2025 Refill [facility] [address] [place], [place] [phone] Vesna Sanabria MD Chronic pain of both knees 03/03/2025 Travel 02/28/2025 Telephone [facility] [address] [place] [phone] Ava Yap DO telephone call 02/05/2025 11:30 AM EDT Office Visit [address] [address] Ava Yap DO 02/05/2025 Travel 02/04/[address] [address] Ava Yap DO Chart Prep 02/03/2025 Patient Outreach [address] [address] Ava Yap DO Care Coordination (CP Assigned Patient ED Follow Up) 02/01/2025 Orders Only GENERIC EXTERNAL DATA DEPARTMENT Provider, Generic External Data 01/27/2025 Refill [facility] [address] [place] [address] Ava Yap DO Chronic pain of both knees 01/27/2025 Refill [facility] [address] [place] [address] Ava Yap DO Anxiety 12/25/2024 Refill [facility] [address] [place] [address] Ava Yap DO Chronic pain of both knees 12/25/2024 Telephone [facility] [address] [place] [phone] Ava Yap DO Referral 12/24/2024 Telephone [facility] [address] [place] [address] Ava Yap DO Prior Authorization ( PA: Lorazepam (Ativan)) 12/04/2024 Refill [facility] [address] [place] [address] Ava Yap DO Chronic pain of both knees 12/04/2024 [facility]ill [facility] [address] [place] [address] Ava Yap DO Anxiety from Last 3 Months Immunizations Immunization Administration [...] Description 06/04/2025 2:30 PM EST Office Visit [facility] [address] [place] [address] Rex, Michaelle, OD [address] [place] [address] 06/05/2025 1:30 PM EST Clinical Support [facility] [address] [place] [address] Denisha Cross, RN Health Maintenance Due Date [...] 04/02/2015 Zoster Vaccines (1 of 2) 12/05/2021 Depression Screening 06/22/2024 06/22/2023, 06/22/20 Cervical Cancer Screening 08/23/2024 HPV/Cotest 08/23/2024 08/23/2019, 07/22/2016 DTaP/Tdap/Td Vaccines (2 - Td or Tdap) 12/09/2024 12/09/2014 COVID-19 Vaccine (3 - season) 2025 06/15/2021, 10/03/2020 Influenza Vaccine (#1) 2025 Mammogram 05/04/2025 05/04/2023, [...] Diagnosis Comments XR CHEST 2 VIEWS Routine 03/03/2025 1:35 PM EDT POCT ELISEO-14 URINE DRUG SCREEN Routine 03/03/2025 1:02 PM EDT Long-term current use of opiate analgesic Long-term current use of benzodiazepine XR CHEST 2 VIEWS Routine 02/01/2025 1:02 [...] QL NAAT Routine 02/01/2025 12:13 PM EDT HEMOGLOBIN A1C Routine 10/31/2024 9:00 AM EDT [...] Maintenance Results * XR Chest 2 Views (03/03/2025 1:35 PM EDT) Only the most recent of2 resultswithin the time period is included. Anatomical Region Laterality Modality Chest Radiographic Nieves ging 03/03/2025 1:35 PM EDT Narrative 03/03/2025 1:52 PM EDT [place] [address] XRay Report Signed Patient: Ximena Xiong MR#: [id number] : 1970 Acct:[id number] Age/Sex: 54 / F ADM Date: 03/03/25 Loc: MAIK Attending Dr: Fermin Vyas MD Ordering Physician: Fermin Vyas MD Date of Service: 03/03/25 Procedure(s): XR chest 2V Accession Number(s): [id number] cc: Ava Yap DO; Fermin Vyas MD Reason for Exam: R04.2 - Hemoptysis EXAMINATION: XR CHEST 2 VIEWS HISTORY: R04.2 - Hemoptysis COMPARISON: Comparison is made with the prior examination dated 02/01/2025. FINDINGS: PA and lateral views of the chest are submitted. The lungs are expanded and clear. There is no pleural effusion, pneumothorax, or pulmonary vascular congestion. The heart is normal in size. There is degenerative disc disease of the spine. XR/XR chest 2V IMPRESSION: No acute cardiopulmonary abnormality. Electronically signed by: Tesfaye Whitaker MD 03/03/2025 01:49 PM EDT RP Dictated By: Tesfaye Whitaker MD Signed By: <Electronically signed by Tesfaye Whitaker MD in OV> 03/03/25 1349 DD/ 1335 TD/TT: 03/03/25 1338 Metal Mockup Maker: Procedure Note Donotuseinterpreter, Image - 03/03/[address] [address] XRay Report Signed Patient: Kody Xiong#: [id number] : 1970Acct:[id number] Age/Sex: 54 / FADM Date: 03/03/25 Loc: MAIK Attending Dr: Fermin Vyas MD Ordering Physician: Fermin Vyas MD Date of Service: 03/03/25 Procedure(s): XR chest 2V Accession Number(s): [id number] cc: Ava Yap DO; Fermin Vyas MD Reason for Exam: R04.2 - Hemoptysis EXAMINATION: XR CHEST 2 VIEWS HISTORY: R04.2 - Hemoptysis COMPARISON: Comparison is made with the prior examination dated 02/01/2025. FINDINGS: PA and lateral views of the chest are submitted. The lungs are expanded and clear. There is no pleural effusion, pneumothorax, or pulmonary vascular congestion. The heart is normal in size. There is degenerative disc disease of the spine. XR/XR chest 2V IMPRESSION: No acute cardiopulmonary abnormality. Electronically signed by: Tesfaye Whitaker MD 03/03/2025 01:49 PM EDT RP Dictated By: Tesfaye Whitaker MD Signed By: <Electronically signed by Tesfaye Whitaker MD in OV> 03/03/25 1349 DD/ 1335 TD/TT: 03/03/258 Metal Mockup Maker: [facility] External Provider IMG XR PROCEDURES Edited Result - Final * POCT ELISEO-14 Urine Drug Screen (03/03/2025 1:02 PM EDT) Pathologist [facility] THC Negative Negative Cocaine Screen, Urine Negative [...] procedure / Unknown 03/03/2025 1:02 PM EDT Narrative Denisha Cross RN - 03/03/2025 1:02 PM EDT UTOX cup Lot#[id number] Exp. 04/01/26 Internal Pass Control Ava Yap DO POINT OF CARE TEST ENTER/HILARIO T ORDERABLES Final Result * High Sensitivity Troponin I (02/01/2025 12:13 PM EDT) Pathologist [facility] TROPONIN I HIGH SENSITIVITY <2.7 <3.5 - 17.0 ng/L [facility] Comment:The [place] high sens itivity Troponin-I results should beused in conjunction with other diagnostic information suchas ECG, clinical observations and information, and patientsymptoms to aid in the diagnosis of HI. 02/01/2025 12:1 3 PM EDT 02/01/2025 12:16 PM EDT Generic External Data Provider LAB BLOOD ORDERAB LES Final Result [facility] [address] [place] [phone] * SARS-CoV-2 RNA, Influenza A/B, and RSV RNA, Ql NAAT (02/01/2025 12:13 PM EDT) Pathologist [facility] Influenza A PCR NEGATIVE Negative [facility] Influenza B PCR NEGATIVE Negative [facility] Resp Syncy Virus RNA Qual PCR NEGATIVE Negative [facility] SARS COV2 PCR NEGATIVE Negative [facility] Comment:All test [...] use by authorized laboratories.Testing performed on the Ev[employer] TechnologiesXpert utilizingreal-time RT-PCR.All SARS CoV2 and positive influenza A/B results arereported to [facility]. 02/01/2025 12:1 3 PM EDT 02/01/2025 12:16 PM EDT us Generic External Data Provider LAB MICROBIOLOGY - GENERAL ORDERABLES Final Result [facility] [address] [place] [phone] * CBC auto differential (02/01/2025 12:13 PM EDT) Pathologist [facility] White Blood Count 5.6 4.8 - 10.8 X10*3/uL [facility] Red Blood Count 4.47 4.20 - 5.50 X10*6/uL [facility] Hemoglobin 13.9 12.0 - 16.0 g/dl [facility] Hematocrit 40.0 37.0 - 47.0 % [facility] Mean Corpuscular Volume 89.5 80.0 - 98.0 fL [facility] Mean Corpuscular Hemoglobin 31.1 27.0 - 33.0 pg [facility] Mean Corpuscular HGB Conc 34.8 31.0 - 35.0 g/dl [facility] Red Cell Distribution Width 12.9 11.0 - 16.0 % [facility] Platelet Count 216 160 - 400 X10*3/uL [facility] Mean Platelet Volume 10.7 9.4 - 12.3 fL [facility] Neutrophils Percent Auto 51.1 45 - 73 % [facility] Imm Gran Pct Auto 0.2 0.0 - 0.4 % [facility] Lymphocytes Percent Auto 38.7 20 - 40 % [facility] Monocytes Percent Auto 8.9 2 - 11 % [facility] Eosinophils Percent Auto 0.9 0 - 4 % [facility] Basophils Percent Auto 0.2 0 - 2 % [facility] NRBC Pct Auto 0.0 0.0 - 0.2 /100WBC [facility] Neutrophils Absolute Auto 2.9 2.0 - 8.3 x10*3/uL [facility] Imm Gran Abs Auto 0.01 0.00 - 0.03 X10*3/uL [facility] Lymphocytes Absolute Auto 2.2 1.2 - 4.9 X10*3/uL [facility] Monocytes Absolute Auto 0.5 0.1 - 1.2 X10*3/uL [facility] Eosinophils Absolute Auto 0.1 0.0 - 0.4 X10*3/uL [facility] Basophils Absolute Auto 0.0 0.0 - 0.2 X10*3/uL [facility] NRBC Abs Auto 0.000 0.0 - 0.012 X10*3/uL [facility] 02/01/2025 12:1 3 PM EDT 02/01/2025 12:16 PM EDT us Generic External Data Provider LAB BLOOD ORDERAB LES Final Result [facility] [address] [place] [phone] * Magnesium (02/01/2025 12:13 PM EDT) Magnesium 1.9 1.6 - 2.6 mg/dL [facility] 02/01/2025 12:1 3 PM EDT 02/01/2025 12:16 PM EDT us Generic External Data Provider LAB BLOOD ORDERAB LES Final Result Performing Organization Address City/[facility]/ZIP Co de Phone Number [facility] [address] [place] [phone] * Lipase (02/01/2025 12:13 PM EDT) Pathologist [facility] Lipase 16 8 - 78 U/L [facility] 02/01/2025 12:1 3 PM EDT 02/01/2025 12:16 PM EDT us Generic External Data Provider LAB BLOOD ORDERAB LES Final Result Performing Organization Address [facility] Co de Phone Number [facility] [address] [place] [phone] * Hepatic Function Panel (02/01/2025 12:13 PM EDT) Pathologist [facility] Bilirubin, Total 0.4 0.0 - 1.0 mg/dL [facility] Bilirubin, Direct 0.1 0.0 - 0.5 mg/dL [facility] Aspartate Amino Transferase 26 5 - 31 U/L [facility] Alanine Aminotransferase 30 0 - 31 U/L [facility] Total Protein 7.7 6.5 - 8.0 g/dL [facility] Albumin Level 4.8 3.5 - 5.0 g/dL [facility] Alkaline Phosphatase 79 39 - 117 U/L [facility] 02/01/2025 12:1 3 PM EDT 02/01/2025 12:16 PM EDT us Generic External Data Provider LAB BLOOD ORDERAB LES Final Result Performing Organization Address City/[facility]/ZIP Co de Phone Number [facility] [address] [place] [phone] * Basic Metabolic Panel (02/01/2025 12:13 PM EDT) Sodium 140 135 - 145 mmol/L [facility] Potassium 4.0 3.3 - 5.1 mmol/L [facility] Chloride 107 96 - 108 mmol/L [facility] Carbon Dioxide 24 22 - 29 mmol/L [facility] Anion Gap 13 12 - 20 [facility] Urea Nitrogen (BUN) 13 9 - 16 mg/dL [facility] Creatinine, Serum 0.73 0.5 - 1.4 mg/dL [facility] Creatinine Clr Calc Pharmacy 96.0 [facility] Comment:Provided height and weight: 152.4 cm,102.3 kg.eGFR (calculated from the MDRD study equation) and eCrCl(calculated from the Cockcroft-Gault equation) are based ondifferent parameters and may not yield comparable results.If eCrCl result is absurd, please check patient'sheight/weight. Estimated Glomerular Filt Rate >60 [facility] Comment:Chronic Kidney Disea se: Estimated GFR < 60 mL/min/1.15y9Tcsgam Kidney Disease: Estimated GFR < 15 mL/min/1.73m2 Glucose 113 60 - 115 mg/dL [facility] Calcium 9.5 8.4 - 10.2 mg/dL [facility] 02/01/2025 12:1 3 PM EDT 02/01/2025 12:16 PM EDT us Generic External Data Provider LAB BLOOD ORDERAB LES Final Result [facility] [address] [place] [phone] * Hemoglobin A1c (10/31/2024 9:00 AM EDT) Hemoglobin A1c 6.0 <6.0 % [facility] Comment:Hemoglobin A1C Refer ence Range Adults: 4.8 - 6.0 % Non diabetic: < 6.0 % Goal: < 7.0 %Additional Action Suggested: > 8.0 %Note: Hemoglobin A1c results are invalid for patients with abnormal amounts of HbF. Blood transfusions may impact the HbA1c concentration in the patient sample. Estimated Average Glucose 126 mg/dL [facility] Comment:eAG = Estimated ave rage glucose which is %A1C expressed asaverage glucose, using the formula of the M5H-NdefsiiHwfiwdk Glucose study (ADAG), Diabetes Care, Vol.31,#8,Jan. 2007 10/31/2024 9:00 AM EDT 10/31/2024 9:00 AM EDT us Generic External Data Provider LAB BLOOD ORDERAB LES Final Result [facility] [address] [place] [phone] * (ABNORMAL) Lipid Panel, Standard (10/31/2024 9:00 AM EDT) Triglycerides 198(H) <150 mg/dL [facility] Comment:Desirable Triglyceri de: less than 150 mg/dLBorderline High Triglyceride 150-199 mg/dLHigh Triglyceride: 200-499 mg/dLVery High Triglyceride: greater than or equal to 5OO mg/dL Cholesterol 159 <200 mg/dL [facility] Comment:Desirable Cholestero l: less than 200 mg/dLBorderline High Cholesterol: 200-239 mg/dLHigh Cholesterol: greater than 239 mg/dL LDL Cholesterol Calculated 75 <100 mg/dL [facility] Comment:Desirable LDL: less than 100 mg/dLNear Optimal/Above Optimal LDL: 110- 129 mg/dLBorderline High LDL: 130-159 mg/dLHigh LDL: 160-189 mg/dLVery High LDL: greater than or equal to 190 mg/dL HDL Cholesterol 45 >40 mg/dL [facility] Comment:Desirable HDL: great er than 40 mg/dL Note: This HDL assay may give artificially low results in patients with liver disease. 10/31/2024 9:00 AM EDT 10/31/2024 9:00 AM EDT us Generic External Data Provider LAB BLOOD ORDERAB LES Final Result Performing Organization Address [place]/[facility]/ZIP Co de Phone Number [facility] [address] [place] [phone] * Hepatitis C Antibody with Reflex to HCV, RNA, Quantitative, Real-Time PCR (09/05/2024 11:10 AM EDT) Hepatitis C Antibody Nonreactive Nonreactive [facility] Comment:Antibodies to HCV no t detected; does not exclude early acuteHCV infection. Blood Venous blood specimen / Unknown 09/05/2024 11:10 AM EDT 09/05/2024 1:25 PM EDT Ava Yap DO LAB BLOOD ORDERABLES Final R esult Performing Organization Address [place]/[facility] Co de Phone Number [facility] [address] [place] [phone] * HIV-1/2 Antigen and Antibodies, Fourth Generation, with Reflexes (09/05/2024 11:10 AM EDT) Pathologist [facility] HIV AB/AG Nonreactive Nonreactive [facility] Comment:HIV-1 p24 Ag and/or HIV-1/HIV-2 Ab not detected.A test result that is nonreactive does not exclude thepossibility of exposure to or infection with HIV-1 and/orHIV-2. Nonreactive results in this assay for individualswith prior exposure to HIV-1 and/or HIV-2 may be due toantigen and antibody levels that are below the limit ofdetection of this assay.The [employer] HIV Ag/Ab Combo assay result andsupplemental assay results should be interpreted inconjunction with the patient's clinical presentation,history and other laboratory results. If the results areinconsistent with clinical evidence, additional testing issuggested to confirm the result. Blood Venous blood specimen / Unknown 09/05/2024 11:10 AM EDT 09/05/2024 1:25 PM EDT us Ava Yap DO LAB BLOOD ORDERABLES Final R esult [facility] [address] [place] [phone] * BI Mammogram Screening Tomosynthesis Bilateral (05/04/2023 1:45 PM EST) Anatomical Region Laterality Modality Breast Bilateral Mammography 05/04/2023 1:45 PM EST Narrative 05/22/2023 6:55 AM EST [address] [place] [address] Mammography Report Signed Patient: Ximena Xiong MR#: [id number] : 1970 Acct:[id number] Age/Sex: 52 / F ADM Date: 05/04/23 Loc: HO.MAMMO Attending Dr: Ava Yap DO Ordering Physician: Ava Yap DO Results: 1N egative Date of Service: 05/04/23 Follow Up: 1 Year From Orig inal Mammogram Procedure(s): MM tomosynthesis screening BI Accession Number(s): [id number] cc: Ava Yap DO EXAMINATION: MM SCREENING [...] Ana Buchanan MD in OV> 05/22/2351 DD/ 1345 TD/TT: Metal Mockup Maker: Procedure Note Donotuseinterpreter, Image - 05/22/20[facility] [address] [place] [address] Mammography Report Signed Patient: Heath XiongR#: [id number] : 1970Acct:[id number] Age/Sex: 52 / FADM Date: 05/04/23 Loc: NORTH Attending Dr: Ava Yap DO Ordering Physician: Ava Yapults: 1N egative Date of Service: 05/04/23Follow Up: 1 Year From Orig inal Mammogram Procedure(s): MM tomosynthesis screening BI Accession Number(s): [id number] cc: Ava Yap DO EXAMINATION: MM SCREENING [...] in OV> 05/22/23 0651 DD/ 1345 TD/TT: Metal Mockup Maker: Ava Yap DO IMG BI PROCEDURES Final Resu lt * HPV E6/E7 RFLX ELMER 16 18/45 (08/23/2019 11:30 AM EST) ADDITIONAL TESTING Not indicated () [facility] Comment: Test Performed by [facility], [facility] [place], [address] [place] [address] Jorge López M.D., Ph.D., Director of Laboratories , [place] [id number] HPV 16 RNA Test not performed [facility] HPV 18/45 RNA Test not performed [facility] HPV mRNA E6/E7 Not Detected NOT DETECTED [facility] Comment: This test was performed using the APTIMA(R) HPV Assay ([employer] This assay detects E6/E7 viral messenger RNA (mRNA) from 14 high-risk HPV types (16,18,31,33,35,39,45,51, 52,56,58,59,66,68). For additional information please refer to: http://education.Wakozi/faq/QYC839b3 (This link is being provided for informational/ educational purposes only.) The analytical performance characteristics of this assay have been determined by [employer] [place]. The modifications have not been cleared or approved by the FDA. This assay has been validated pursuant to the CLIA regulations and is used for clinical purposes. Please note: Effective 03/07/2016, HPV testing will be performed using [employer] APTIMA test which targets mRNA. Detecting mRNA instead of DNA, as in older methods, offers significant improvements in specificity. 08/23/2019 11:3 0 AM EST us Ava Yap DO HISTORICAL/NON ORDERABLE LAB S Final Result [facility] [address] from Last 3 Months or Most Recently Relevant to Health Maintenance Insurance C[facility] [address] MEDICAID STAND ADULT Care Teams Wire Annealer Relationship Specialty Start Date End Date Ava Yap DO [address] [place] [address] PCP - General Family Medicine 03/28/11 Avelina Hodges Fermenting Cellars SupervisorPrinted Circuit Layout Taper 04/21/23
--- OUTSIDE RECORDS SUMMARY | 2025-03-03 15:42 | XMS_ITS | Encounter Summary ---
Author Organization [employer] Address [address] [place] [address] [address] [place] [address] Care Team Providers Care Project Superintendent Name Role Phone MaurilioAva arellano Primary Care Provider + [phone] Reason for Visit * Reason Comments Med Refill Encounter Details Date Type Department Care Team ([facility] st Contact Info) Description 04/26/2023 Refill [facility] [address] [place], [place] [phone] Vesna Sanabria MD [address] [place] [address] Anxiety Social History Tobacco Use Types Packs/Day [...] Description 06/04/2025 2:30 PM EST Office Visit [facility] [address] [place] [address] Rex, Michaelle, OD [address] [place] [address] 06/05/2025 1:30 PM EST Clinical Support [facility] [address] [place] [address] Denisha Cross, DEVI documented as of this encounter Visit Diagnoses Diagnosis Anxiety Anxiety state, unspecified documented in this encounter Additional Health Concerns Assessment Noted Time PHQ-9 Depression Total Score: 21 023 10:23 AM EDT documented as of this encounter Care Teams Project Superintendent Relationship Specialty Start Date End Date Ava Yap DO [address] [place] [address] PCP - General Family Medicine 03/28/11 Avelina Hodges Can MarkerMachine Load Clerk 04/21/23 documented as of this encounter
== END 2025-03-03 13:25 | disposition home or self-care (01) ==
LOC: HO.XRAY 13:24
PROVIDERS: PCP Family Medicine; Visit Provider Hospitalist
DX: R04.2 Hemoptysis (principal)
CPT/HCPCS: 71046

== ENCOUNTER → 2025-03-03 13:31 | Outpatient (BNV) | payer MEDICAID, SELFPAY | PROVIDERS: PCP Family Medicine; Visit Provider Radiology Diagnostic Radiology | DX: R04.2 Hemoptysis (principal) | CPT/HCPCS: 71046 ==

== ENCOUNTER 2025-03-29 09:15 | Outpatient (REF) | payer MEDICAID, SELFPAY ==
--- NOTE | ~2025-03-29 | CT_ITS ---
EXAMINATION: CT CHEST WITHOUT IV CONTRAST INDICATION: R04.2 - Hemoptysis COMPARISON: There are no prior studies available for comparison. TECHNIQUE: Helical CT scan of the chest was performed without intravenous contrast. Coronal and sagittal reformatted images were generated and reviewed. This CT exam was performed with one or more of the following dose reduction techniques: automated exposure control, adjustment of the mA and/or kV according to patient size, use of iterative reconstruction technique. DLP: 270 mGy-cm CHEST: THYROID: The thyroid is unremarkable. LUNGS: Again seen are scattered calcified granulomas in the right middle lobe (series 5, images 63 and 72), in the right lower lobe (series 6, image 86), in the left upper lobe (series 5, image 56), in the lingula (series 5, image 84), and in the left lower lobe (series 5, images 78, 86, and 101). There are no focal airspace opacities. MEDIASTINUM: There is no mediastinal lymphadenopathy. KIRSTY: Evaluation of the hilar regions is limited by lack of intravenous contrast material. CARDIOVASCULATURE: The heart is normal in size. There is no pericardial effusion. The thoracic aorta is normal in caliber. DEGREE OF CORONARY CALCIFICATION: mild PLEURA: There is no pleural effusion. No pneumothorax. MAIN AIRWAYS: The mainstem bronchi and proximal branches are patent. AXILLA: There is no axillary lymphadenopathy. BONES AND SOFT TISSUES: There is mild degenerative disc disease of the spine. UPPER ABDOMEN: The visualized portion of the liver demonstrates decreased attenuation, consistent with steatosis. The visualized portions of the spleen and adrenal glands have an unremarkable unenhanced appearance. There is a small hiatal hernia. CT/CT chest wo IV con IMPRESSION: 1. Scattered calcified granulomas. No focal airspace opacities are identified. 2. Hepatic steatosis. Electronically signed by: Tesfaye Whitaker MD 03/31/2025 07:36 AM EDT
--- OUTSIDE RECORDS SUMMARY | 2025-03-29 09:17 | XMS_ITS | Encounter Summary ---
Author Organization [employer] Address [address] [place] [address] Care Team Providers Care Infant Toddler Lead Teacher Name Role Phone Ava Yap DO Primary Care Provider + [phone] Reason for Visit * Reason Comments Med Refill Encounter Details Date Type Department Care Team (Late st Contact Info) Description 03/19/2023 Refill [facility] [address] [place], [place] [phone] Ava Yap DO [address] [place] [address] Social History Tobacco Use Types Packs/Day Years [...] Description 06/04/2025 2:30 PM EST Office Visit [facility] [address] [place], [place] [phone] Michaelle Goodman, OD [address] [place] [address] 06/05/2025 1:30 PM EST Clinical Support [facility] [address] [facility] [place] [address] Denisha Cross, RN documented as of this encounter Visit Diagnoses Not on filedocumented in this encounter Additional Health Concerns Assessment Noted Time PHQ-9 Depression Total Score: 21 023 10:23 AM EDT documented as of this encounter Care Teams Infant Toddler Lead Teacher Relationship Specialty Start Date End Date Ava Yap DO [address] [facility] [place] [address] PCP - General Family Medicine 03/28/11 Avelina Hodges Cloth WinderSaw Feeder 04/21/23 documented as of this encounter
--- OUTSIDE RECORDS SUMMARY | 2025-03-29 09:17 | XMS_ITS | Encounter Summary ---
Author Organization [employer] Address [address] [place] [address] 7 [place] [address] Care Team Providers Care Fare Collector Name Role Phone MaurilioAva arellano Primary Care Provider + [phone] Reason for Visit * Reason Comments Med Refill Encounter Details Date Type Department Care Team ([facility] st Contact Info) Description 08/04/2023 Refill [facility] MEDICINE 230 [place], [place] [phone] Vesna Sanabria MD 230 [place] [address] Chronic bilateral low back pain, unspecified whether [...] Description 06/04/2025 2:30 PM EST Office Visit [facility] OPTOMETRY [address] [place] [address] Michaelle Goodman, OD 230 [place] [address] 06/05/2025 1:30 PM EST Clinical Support [facility] MEDICINE 230 [place] [address] Denisha Cross, DEVI documented as of this encounter Visit Diagnoses Diagnosis Chronic bilateral low back pain, unspecified whether sciatica present documented in this encounter Additional Health Concerns Assessment Noted Time PHQ-9 Depression Total Score: 5 06/22/20 10:59 AM EST documented as of this encounter Care Teams Fare Collector Relationship Specialty Start Date End Date Ava Yap DO 230 [place] [address] PCP - General Family Medicine 03/28/11 Avelina Hodges Molding SupervisorAir Route Controller 04/21/23 documented as of this encounter
--- OUTSIDE RECORDS SUMMARY | 2025-03-29 09:17 | XMS_ITS | Encounter Summary ---
Author Organization [employer] Address [address] [place] [address] 7 [place] [address] Care Team Providers Care Tennis Desk Team Member Name Role Phone Ava Yap DO Primary Care Provider + [phone] Reason for Visit * Reason Comments Med Refill Encounter Details Date Type Department Care Team ([facility] st Contact Info) Description 03/22/2024 Refill [facility] MEDICINE 230 [place], [place] [phone] Ava Yap DO 230 [place], [place] [phone] Chronic low back pain, unspecified back pain [...] Description 06/04/2025 2:30 PM EST Office Visit [facility] OPTOMETRY [address] [place] [address] Michaelle Goodman, OD 230 [place] [address] 06/05/2025 1:30 PM EST Clinical Support [facility] MEDICINE 230 [place] [address] Denisha Cross, DEVI documented as of this encounter Visit Diagnoses Diagnosis Chronic low back pain, unspecified back pain laterality, unspecified whether sciatica present documented in this encounter Additional Health Concerns Assessment Noted Time PHQ-9 Depression Total Score: 5 06/22/20 10:59 AM EST documented as of this encounter Care Teams Tennis Desk Team Member Relationship Specialty Start Date End Date Ava Yap DO [address] [place], [place] [phone] PCP - General Family Medicine 03/28/11 Avelina Hodges Intranet DeveloperFire Equipment Inspector Helper 04/21/23 documented as of this encounter
--- OUTSIDE RECORDS SUMMARY | 2025-03-29 09:17 | XMS_ITS | Encounter Summary ---
Author Organization [employer] Address [address] [place] [address] Care Team Providers Care Yacht Rigger Name Role Phone Ava Yap DO Primary Care Provider + [phone] Reason for Visit * Reason Comments Med Refill Encounter Details Date Type Department Care Team (Late Contact Info) Description 11/14/2022 Refill [facility] MEDICINE 230 [place], [place] [phone] Ava Yap DO 230 [place] [address] Anxiety Social History Tobacco Use Types Packs/Day [...] Description 06/04/2025 2:30 PM EST Office Visit [facility] OPTOMETRY [address] [place] [address] Michaelle Goodman, OD 230 [place] [address] 06/05/2025 1:30 PM EST Clinical Support [facility]INE [address] [facility] [place] [address] Denisha Cross RN documented as of this encounter Visit Diagnoses Diagnosis Anxiety Anxiety state, unspecified documented in this encounter Additional Health Concerns Assessment Noted Time PHQ-9 Depression Total Score: 0 07/27/19 11:46 AM EST documented as of this encounter Care Teams Yacht Rigger Relationship Specialty Start Date End Date Ava Yap DO [address] [facility] [place] [address] PCP - General Family Medicine 03/28/11 Avelina Hodges Merchandise SupervisorVacuum Filter Operator 04/21/23 documented as of this encounter
--- OUTSIDE RECORDS SUMMARY | 2025-03-29 09:17 | XMS_ITS | Encounter Summary ---
Author Organization [employer] Address [address] [place] [address] 7 [place] [address] Care Team Providers Care Documentation Designer Name Role Phone Ava Yap DO Primary Care Provider + [phone] Reason for Visit * Reason Comments Med Refill Encounter Details Date Type Department Care Team ([facility] st Contact Info) Description 07/05/2023 Refill [facility] MEDICINE 230 [place], [place] [phone] Ava Yap DO 230 [place], [place] [phone] Chronic bilateral low back pain, unspecified whether [...] Description 06/04/2025 2:30 PM EST Office Visit [facility] OPTOMETRY [address] [place] [address] Michaelle Goodman, OD 230 [place] [address] 06/05/2025 1:30 PM EST Clinical Support [facility] MEDICINE 230 [place] [address] Denisha Cross, DEVI documented as of this encounter Visit Diagnoses Diagnosis Chronic bilateral low back pain, unspecified whether sciatica present Anxiety Anxiety state, unspecified documented in this encounter Additional Health Concerns Assessment Noted Time PHQ-9 Depression Total Score: 5 06/22/20 10:59 AM EST documented as of this encounter Care Teams Documentation Designer Relationship Specialty Start Date End Date Ava Yap DO 230 [place] [address] PCP - General Family Medicine 03/28/11 Avelina Hodges Associate Professor Of PsychologyBusiness Continuity Analyst 04/21/23 documented as of this encounter
--- OUTSIDE RECORDS SUMMARY | 2025-03-29 09:17 | XMS_ITS | Encounter Summary ---
Author Organization [employer] Address [address] [facility] 7 [place] [address] Care Team Providers Care Raker Buffing Wheel Name Role Phone Ava Yap DO Primary Care Provider + [phone] Reason for Visit * Reason Onset Date Comments Med Refill Schedule SPICE MIXER Initial 04/26/2023 Encounter Details Date Type Department Care Team (Late st Contact Info) Description 04/26/2023 Refill [facility] MED [facility] PEDS [address] [place] [address] Ava Yap DO 230 [place] [address] Anxiety; Chronic bilateral low back pain, unspecified [...] - 04/26/2023 11:55 AM EDT TC via P/I#[id number], male voice answered, stated pt was not available. L/M with Rich requesting pt call back to schedule SPICE MIXER Initial appt. documented in this encounter Plan of Treatment Upcoming Encounters Date Type Department Care Team (Late st Contact Info) Description 06/04/2025 2:30 PM EST Office Visit [facility] OPTOMETRY [address] [place] [address] Rex, Michaelle, OD 230 [place] [address] 06/05/2025 1:30 PM EST Clinical Support [facility] MEDICINE 230 [place] [address] Denisha Cross, RN documented as of this encounter Visit Diagnoses Diagnosis Anxiety Anxiety state, unspecified Chronic bilateral low back pain, unspecified whether sciatica present documented in this encounter Additional Health Concerns Assessment Noted Time PHQ-9 Depression Total Score: 21 023 10:23 AM EDT documented as of this encounter Care Teams Raker Buffing Wheel Relationship Specialty Start Date End Date Ava Yap DO 230 [place] [address] PCP - General Family Medicine 03/28/11 Avelina Hodges Furnace HandInterpreter 04/21/23 documented as of this encounter
--- OUTSIDE RECORDS SUMMARY | 2025-03-29 09:17 | XMS_ITS | Clinical Summary ---
Author Organization [facility] Address [address] [place] [address] Care Team Providers Care Recording Studio Internship Name Role Phone Pcp, No Primary Care [...] (3 - 2024- season) 2025, 10/03/2020 Insurance [facility] Care Teams Recording Studio Internship Relationship Specialty Start Date End Date Pcp, No PCP - General General Medicine 08/12/22
--- OUTSIDE RECORDS SUMMARY | 2025-03-29 09:17 | XMS_ITS | Encounter Summary ---
Author Organization [employer] Address [address] [place] [address] [address] Care Team Providers Care Health Informatics Instructor Name Role Phone Ava Yap DO Primary Care Provider + [phone] Encounter Details Date Type Department Care Team ([facility] Contact Info) Description 07/18/2022 Orders Only [facility] CH[facility] MED & PEDS [address] [place], [place] [phone] Ava Holt LPN Social History Tobacco Use [...] Description 06/04/2025 2:30 PM EST Office Visit [facility] OPTOMETRY [address] [place], [place] [phone] Michaelle Goodman, OD 230 [place], [place] [phone] 06/05/2025 1:30 PM EST Clinical Support [facility] MEDICINE 230 [place] [address] Denisha Cross RN documented as of this [...] AM EST) Influenza A PCR NEGATIVE Negative [facility] Influenza B PCR NEGATIVE Negative [facility] Resp Syncy Virus RNA Qual PCR NEGATIVE Negative [facility] SARS COV2 PCR NEGATIVE Negative [facility] SARS/Flu/RSV Note See Note [facility] Comment:All test results mus t [...] use by authorized laboratories.Testing performed on the [employer] GeneXpert utilizingreal-time RT-PCR.All SARS CoV2 and positive influenza A/B results arereported to [facility]. 08/12/2022 10:3 2 AM EST 08/12/2022 10:37 AM EST [facility] Exter nal Provider LAB MICROBIOLOGY - GENERAL ORDERABLES Final Result Performing Organization Address [facility] Co de Phone Number [facility] [address] [place] [address] [phone] * Sed Rate by Modified Mikalergren (08/12/2022 10:32 AM EST) Pathologist [facility] Erythrocyte Sedimentation Rate 16 0 - 20 MM/HR [facility] Comment:Patients with polycy themia and many hemoglobin abnormalitiesmay have depressed sed rates whereas patients with anemiamay have elevated sed rates. 08/12/2022 10:3 2 AM EST 08/12/2022 10:37 AM EST [facility] External Provider LAB BLO OD ORDERABLES Final Result Performing Organization Address [facility] Co de Phone Number [facility] [address] [place] [address] [phone] * C-reactive Protein (08/12/2022 10:32 AM EST) Pathologist [facility] C Reactive Protein 0.41 < or = 0.50 mg/dL [facility] 08/12/2022 10:3 2 AM EST 08/12/2022 10:37 AM EST [facility] External Provider LAB BLO OD ORDERABLES Final Result Performing Organization Address [facility] Co de Phone Number [facility] [address] [place] [address] [phone] * (ABNORMAL) Basic Metabolic Panel (08/12/2022 10:32 AM EST) Pathologist [facility] Sodium 142 135 - 145 mmol/L [facility] Potassium 4.3 3.3 - 5.1 mmol/L [facility] Chloride 109(H) 96 - 108 mmol/L [facility] Carbon Dioxide 23 22 - 29 mmol/L [facility] Anion Gap 14 12 - 20 [facility] Urea Nitrogen (BUN) 11 9 - 16 mg/dL [facility] Creatinine, Serum 0.76 0.5 - 1.4 mg/dL [facility] Creatinine Clr Calc Pharmacy 92.0 [facility] Comment:Provided height and weight: 149.86 cm,99.79 kg.eGFR (calculated from the MDRD study equation) and eCrCl(calculated from the Cockcroft-Gault equation) are based ondifferent parameters and may not yield comparable results.If eCrCl result is absurd, please check patient'sheight/weight. Estimated Glomerular Filt Rate >60 [facility] Comment:NOTE: For -Am erican individuals, multiply the result by 1.210.Chronic Kidney Disease: Estimated GFR < 60 mL/min/1.71n4Sjabfy Kidney Disease: Estimated GFR < 15 mL/min/1.73m2 Glucose 113 60 - 115 mg/dL [facility] Calcium 9.7 8.4 - 10.2 mg/dL [facility] 08/12/2022 10:3 2 AM EST 08/12/2022 10:37 AM EST us [facility] External Provider LAB BLO OD ORDERABLES Final Result [facility] [address] [place], [place] [phone] * (ABNORMAL) CBC auto differential (08/12/2022 10:32 AM EST) White Blood Count 5.9 4.8 - 10.8 X10*3/uL [facility] Red Blood Count 4.44 4.20 - 5.50 X10*6/uL [facility] Hemoglobin 13.4 12.0 - 16.0 g/dl [facility] Hematocrit 40.5 37.0 - 47.0 % [facility] Mean Corpuscular Volume 91.2 80.0 - 98.0 fL [facility] Mean Corpuscular Hemoglobin 30.2 27.0 - 33.0 pg [facility] Mean Corpuscular HGB Conc 33.1 31.0 - 35.0 g/dl [facility] Red Cell Distribution Width 13.2 11.0 - 16.0 % [facility] Platelet Count 252 160 - 400 X10*3/uL [facility] Mean Platelet Volume 10.7 9.4 - 12.3 fL [facility] Neutrophils Percent Auto 49.0 45 - 73 % [facility] Imm Gran Pct Auto 0.2 0.0 - 0.4 % [facility] Lymphocytes Percent Auto 40.9(H) 20 - 40 % [facility] Monocytes Percent Auto 8.8 2 - 11 % [facility] Eosinophils Percent Auto 0.8 0 - 4 % [facility] Basophils Percent Auto 0.3 0 - 2 % [facility] NRBC Pct Auto 0.0 0.0 - 0.2 /100WBC [facility] Neutrophils Absolute Auto 2.9 2.0 - 8.3 x10*3/uL [facility] Imm Gran Abs Auto 0.01 0.00 - 0.03 X10*3/uL [facility] Lymphocytes Absolute Auto 2.4 1.2 - 4.9 X10*3/uL [facility] Monocytes Absolute Auto 0.5 0.1 - 1.2 X10*3/uL [facility] Eosinophils Absolute Auto 0.1 0.0 - 0.4 X10*3/uL [facility] Basophils Absolute Auto 0.0 0.0 - 0.2 X10*3/uL [facility] NRBC Abs Auto 0.000 0.0 - 0.012 X10*3/uL [facility] 08/12/2022 10:3 2 AM EST 08/12/2022 10:37 AM EST us [facility] External Provider LAB BLO OD ORDERABLES Final Result [facility] [address] [place] [phone] * Strep A Nucleic Acid (08/12/2022 9:10 AM EST) IDNOW SERIAL# [id number] [facility] Strep A Nucleic Acid Negative Negative [facility] Comment:All test results mus t be correlated with clinical findings.This test has not been evaluated for monitoring treatment ofinfection.Additional follow-up testing using the culture method isrequired if the result is negative and clinical symptomspersist, or in the event of an acute rheumatic feveroutbreak. 08/12/2022 9:10 AM EST 08/12/2022 9:12 AM EST us [facility] Exter nal Provider LAB MICROBIOLOGY - GENERAL ORDERABLES Final Result Performing Organization Address City/State/[facility] Co de Phone Number [facility] [address] [place] [address] [phone] * CT Chest w/o Contrast (08/09/2022 9:07 AM EST) Anatomical Region Laterality Modality Body, Chest Computed Tomogra phy 08/09/2022 9:07 AM EST Narrative 08/13/2022 11:33 AM EST [address] [address] [address] Scan Report Signed Patient: Ximena Xiong MR#: [id number] : 1970 Acct:[id number] Age/Sex: 51 / F ADM Date: 08/09/22 Loc: HO.CT Attending Dr: Ava Yap DO Ordering Physician: Ava Yap DO Date of Service: 08/09/22 Procedure(s): CT chest wo IV con Accession Number(s): [id number] cc: Ava Yap DO EXAMINATION: CT CHEST [...] in OV> 08/13/22 1131 DD/ 0907 TD/TT: Services Engineer: SS Procedure Note Donotuseinterpreter, Image - 08/13/[address] [address] [address] Scan Report Signed Patient: Kody Xiong#: [id number] : 1970Acct:[id number] Age/Sex: 51 / FADM Date: 08/09/22 Loc: HO.CT Attending Dr: Ava Yap DO Ordering Physician: Ava Yap DO Date of Service: 08/09/22 Procedure(s): CT chest wo IV con Accession Number(s): [id number] cc: Ava Yap DO EXAMINATION: CT CHEST [...] in OV> 08/13/22 1131 DD/ 0907 TD/TT: Services Engineer: SS [facility] External Provider IMG CT PROCEDURES Edited Result - Final documented in this encounter Visit Diagnoses Not on filedocumented in this encounter Care Teams Health Informatics Instructor Relationship Specialty Start Date End Date Ava Yap DO [address] [place] [address] PCP - General Family Medicine 03/28/11 Avelina Hodges Healthcare Management ConsultantConveyor Man 04/21/23 documented as of this encounter
--- OUTSIDE RECORDS SUMMARY | 2025-03-29 09:17 | XMS_ITS | Encounter Summary ---
Author Organization [employer] Address [address] [facility] 7 [place] [address] Care Team Providers Care Gallery Or Museum Technician Name Role Phone Ava Yap DO Primary Care Provider + [phone] Reason for Visit * Reason Comments Med Refill Encounter Details Date Type Department Care Team ([facility] st Contact Info) Description 12/14/2023 Refill [facility] MEDICINE [address] [place], [place] [phone] Ava Yap DO 230 [place], [place] [phone] Anxiety Social History Tobacco Use Types Packs/Day [...] Description 06/04/2025 2:30 PM EST Office Visit [facility] OPTOMETRY [address] [place] [address] Michaelle Goodman, OD 230 [place] [address] 06/05/2025 1:30 PM EST Clinical Support [facility] MEDICINE [address] [place] [address] Denisha Cross RN documented as of this encounter Visit Diagnoses Diagnosis Anxiety Anxiety state, unspecified documented in this encounter Additional Health Concerns Assessment Noted Time PHQ-9 Depression Total Score: 5 06/22/20 10:59 AM EST documented as of this encounter Care Teams Gallery Or Museum Technician Relationship Specialty Start Date End Date Ava Yap DO [address] [place] [address] PCP - General Family Medicine 03/28/11 Avelina Hodges Electrical Products EngineerMangle Feeder 04/21/23 documented as of this encounter
--- OUTSIDE RECORDS SUMMARY | 2025-03-29 09:17 | XMS_ITS | Encounter Summary ---
Author Organization [employer] Address [address] [place] [address] 7 [place] [address] Care Team Providers Care Hand Candy Dipper Name Role Phone MaurilioAva arellano Primary Care Provider + [phone] Reason for Visit * Reason Comments Med Refill Encounter Details Date Type Department Care Team ([facility] st Contact Info) Description 04/26/2023 Refill [facility] MEDICINE 230 [place], [place] [phone] Vesna Sanabria MD [address] [place] [address] Anxiety Social History Tobacco Use Types Packs/Day [...] Description 06/04/2025 2:30 PM EST Office Visit [facility] OPTOMETRY [address] [place] [address] Rex, Michaelle, OD 230 [place] [address] 06/05/2025 1:30 PM EST Clinical Support [facility] MEDICINE [address] [place] [address] Denisha Cross, DEVI documented as of this encounter Visit Diagnoses Diagnosis Anxiety Anxiety state, unspecified documented in this encounter Additional Health Concerns Assessment Noted Time PHQ-9 Depression Total Score: 21 023 10:23 AM EDT documented as of this encounter Care Teams Hand Candy Dipper Relationship Specialty Start Date End Date Ava Yap DO [address] [place] [address] PCP - General Family Medicine 03/28/11 Avelina Hodges Loan ClerkBox Maker Paperboard 04/21/23 documented as of this encounter
--- OUTSIDE RECORDS SUMMARY | 2025-03-29 09:17 | XMS_ITS | Encounter Summary ---
Author Organization [employer] Address [address] [place] [address] 7 [place] [address] Care Team Providers Care Footwear Sales Associate Name Role Phone Ava Yap DO Primary Care Provider + [phone] Reason for Visit * Reason Comments Med Refill Encounter Details Date Type Department Care Team ([facility] st Contact Info) Description 01/29/2024 Refill [facility] MEDICINE 230 [place], [place] [phone] Ava Yap DO 230 [place], [place] [phone] Anxiety; Chronic bilateral low back pain, unspecified [...] Description 06/04/2025 2:30 PM EST Office Visit [facility] OPTOMETRY [address] [place] [address] Michaelle Goodman, OD [address] [place] [address] 06/05/2025 1:30 PM EST Clinical Support [facility] MEDICINE [address] [place] [address] Denisha Cross, DEVI documented as of this encounter Visit Diagnoses Diagnosis Anxiety Anxiety state, unspecified Chronic bilateral low back pain, unspecified whether sciatica present documented in this encounter Additional Health Concerns Assessment Noted Time PHQ-9 Depression Total Score: 5 06/22/20 10:59 AM EST documented as of this encounter Care Teams Footwear Sales Associate Relationship Specialty Start Date End Date Ava Yap DO [address] [place] [address] PCP - General Family Medicine 03/28/11 Avelina Hodges Starting Gate DriverDentist Private Practice 04/21/23 documented as of this encounter
--- OUTSIDE RECORDS SUMMARY | 2025-03-29 09:17 | XMS_ITS | Encounter Summary ---
Author Organization [employer] Address [address] [facility] 7 [place] [address] Care Team Providers Care Outer Diameter Grinder Tool Name Role Phone Ava Yap DO Primary Care Provider + [phone] Reason for Visit * Reason Comments Med Refill Encounter Details Date Type Department Care Team ([facility] st Contact Info) Description 05/03/2024 Refill [facility] MEDICINE 230 [place], [place] [phone] Ava Yap DO 230 [place], [place] [phone] Anxiety; Chronic pain of both knees Social [...] Visit [facility] OPTOMETRY [address] [place] [address] Michaelle Goodman, OD [address] [place] [address] 06/05/2025 1:30 PM EST Clinical Support [facility] MEDICINE [address] [place] [address] Denisha Cross, DEVI documented as of this encounter Visit Diagnoses Diagnosis Anxiety Anxiety state, unspecified Chronic pain of both knees documented in this encounter Additional Health Concerns Assessment Noted Time PHQ-9 Depression Total Score: 5 06/22/20 10:59 AM EST documented as of this encounter Care Teams Outer Diameter Grinder Tool Relationship Specialty Start Date End Date Ava Yap DO [address] [place] [address] PCP - General Family Medicine 03/28/11 Avelina Hodges Tester/Lift TruckerProduct Engineer 04/21/23 documented as of this encounter
--- OUTSIDE RECORDS SUMMARY | 2025-03-29 09:17 | XMS_ITS | Encounter Summary ---
Author Organization [employer] Address [address] [facility] [address] [place] [address] Care Team Providers Care Rotary Peel Oven Tender Name Role Phone FraciscoAva Primary Care Provider + [phone] Reason for Visit * Reason Comments Med Refill Encounter Details Date Type Department Care Team ([facility] st Contact Info) Description 08/04/2023 Refill [facility] MEDICINE [address] [place], [place] [phone] Svetlana Mccollum MD 230 [place], [place] [phone] Anxiety Social History Tobacco Use Types Packs/Day [...] EST Office Visit [facility] OPTOMETRY [address] [place] [address] Michaelle Goodman, OD 230 [place] [address] 06/05/2025 1:30 PM EST Clinical Support [facility] MEDICINE [address] [place] [address] Denisha Cross RN documented as of this encounter Visit Diagnoses Diagnosis Anxiety Anxiety state, unspecified documented in this encounter Additional Health Concerns Assessment Noted Time PHQ-9 Depression Total Score: 5 06/22/20 10:59 AM EST documented as of this encounter Care Teams Rotary Peel Oven Tender Relationship Specialty Start Date End Date Ava Yap DO [address] [place] [address] PCP - General Family Medicine 03/28/11 Avelina Hodges Side TrimmerFans Clerk 04/21/23 documented as of this encounter
--- OUTSIDE RECORDS SUMMARY | 2025-03-29 09:17 | XMS_ITS | Encounter Summary ---
Author Organization [employer] Address [address] [facility] 7 [place] [address] Care Team Providers Care Fur Blowing Machine Operator Name Role Phone Ava Yap DO Primary Care Provider + [phone] Reason for Visit * Reason Comments Med Refill Encounter Details Date Type Department Care Team ([facility] st Contact Info) Description 05/03/2024 Refill [facility] [address] [place], [place] [phone] Ava Yap DO 230 [place], [place] [phone] Anxiety; Chronic pain of both knees Social [...] Description 06/04/2025 2:30 PM EST Office Visit [facility] OPTOMETRY [address] [place] [address] Michaelle Goodman, OD 230 [place] [address] 06/05/2025 1:30 PM EST Clinical Support [facility] MEDICINE [address] [place] [address] Denisha Cross, DEVI documented as of this encounter Visit Diagnoses Diagnosis Anxiety Anxiety state, unspecified Chronic pain of both knees documented in this encounter Additional Health Concerns Assessment Noted Time PHQ-9 Depression Total Score: 5 06/22/20 10:59 AM EST documented as of this encounter Care Teams Fur Blowing Machine Operator Relationship Specialty Start Date End Date Ava Yap DO 230 [place] [address] PCP - General Family Medicine 03/28/11 Avelina Hodges Photo RetoucherCnc Lathe Machinist 04/21/23 documented as of this encounter
--- OUTSIDE RECORDS SUMMARY | 2025-03-29 09:17 | XMS_ITS | Encounter Summary ---
Author Organization [employer] Address [address] [facility] 7 [place] [address] Care Team Providers Care Alignment Technician Name Role Phone Fracisco Ava Primary Care Provider + [phone] Reason for Visit * Reason Comments Med Refill Encounter Details Date Type Department Care Team ([facility] st Contact Info) Description 02/28/2024 Refill [facility] [address] [place], [place] [phone] Johan Kraft MD 230 [place] [address] Social History Tobacco Use Types Packs/Day Years [...] 06/04/2025 2:30 PM EST Office Visit [facility] OPTOMETRY [address] [place] [address] Michaelle Goodman, OD 230 [place] [address] 06/05/2025 1:30 PM EST Clinical Support [facility] [address] [place] [address] Denisha Cross RN documented as of this encounter Visit Diagnoses Not on filedocumented in this encounter Additional Health Concerns Assessment Noted Time PHQ-9 Depression Total Score: 5 06/22/20 23 10:59 AM EST documented as of this encounter Care Teams Alignment Technician Relationship Specialty Start Date End Date Ava Yap DO 230 [place] [address] PCP - General Family Medicine 03/28/11 Avelina Hodges Observation NursePest Control Chemical Technician 04/21/23 documented as of this encounter
--- OUTSIDE RECORDS SUMMARY | 2025-03-29 09:17 | XMS_ITS | Encounter Summary ---
Author Organization [employer] Address [address] [place] [address] [address] [address] Care Team Providers Care Final Block Press Operator Name Role Phone Ava Yap DO Primary Care Provider + [phone] Encounter Details Date Type Department Care Team (Late Contact Info) Description 07/19/[address] [phone] Ava Yap DO 230 [place] [address] Social History Tobacco Use Types Packs/Day Years [...] Description 06/04/2025 2:30 PM EST Office Visit [facility] OPTOMETRY [address] [place], [place] [phone] Michaelle Goodman, OD 230 [place] [address] 06/05/2025 1:30 PM EST Clinical Support [facility] MEDICINE 230 [place] [address] Denisha Cross, RN documented as of this encounter Visit Diagnoses Not on filedocumented in this encounter Care Teams Final Block Press Operator Relationship Specialty Start Date End Date Ava Yap DO 230 [place] [address] PCP - General Family Medicine 03/28/11 Avelina Hodges Pole SetterTag Marker 04/21/23 documented as of this encounter
--- OUTSIDE RECORDS SUMMARY | 2025-03-29 09:17 | XMS_ITS | Encounter Summary ---
Author Organization [employer] Address [address] [place] [address] 7 [place] [address] Care Team Providers Care Business Area Manager Name Role Phone Ava Yap DO Primary Care Provider + [phone] Reason for Visit * Reason Comments Med Refill Encounter Details Date Type Department Care Team ([facility] st Contact Info) Description 07/04/2023 Refill [facility] [address] [place], [place] [phone] Ava Yap DO 230 [place], [place] [phone] Anxiety; Chronic bilateral low back pain, unspecified [...] Description 06/04/2025 2:30 PM EST Office Visit [facility] OPTOMETRY [address] [place] [address] Michaelle Goodman, OD 230 [place] [address] 06/05/2025 1:30 PM EST Clinical Support [facility] MEDICINE [address] [place] [address] Denisha Cross, DEVI documented as of this encounter Visit Diagnoses Diagnosis Anxiety Anxiety state, unspecified Chronic bilateral low back pain, unspecified whether sciatica present documented in this encounter Additional Health Concerns Assessment Noted Time PHQ-9 Depression Total Score: 5 06/22/20 10:59 AM EST documented as of this encounter Care Teams Business Area Manager Relationship Specialty Start Date End Date Ava Yap DO 230 [place] [address] PCP - General Family Medicine 03/28/11 Avelina Hodges Service Department ManagerWire Galvanizer 04/21/23 documented as of this encounter
--- OUTSIDE RECORDS SUMMARY | 2025-03-29 09:17 | XMS_ITS | Encounter Summary ---
Author Organization [employer] Address [address] [place] [address] 7 [place] [address] Care Team Providers Care Rand Tacker Name Role Phone Ava Yap DO Primary Care Provider + [phone] Reason for Visit * Reason Onset Date Comments Prior Authorization 10/16/2024 Encounter Details Date Type Department Care Team (Late st Contact Info) Description 10/16/2024 Telephone [facility] MED & PEDS [address] [place], [place] [phone] Ava Yap DO 230 [place] [address] Prior Authorization Social History Tobacco Use Types [...] Description 06/04/2025 2:30 PM EST Office Visit [facility] OPTOMETRY [address] [place] [address] Michaelle Goodman, OD 230 [place] [address] 06/05/2025 1:30 PM EST Clinical Support [facility] MEDICINE [address] [place] [address] Denisha Cross RN documented as of this encounter Visit Diagnoses Not on filedocumented in this encounter Additional Health Concerns Assessment Noted Time PHQ-9 Depression Total Score: 5 06/22/20 10:59 AM EST documented as of this encounter Care Teams Rand Tacker Relationship Specialty Start Date End Date Ava Yap DO 230 [place] [address] PCP - General Family Medicine 03/28/11 Avelina Hodges Top CutterSwitchboard Operator Supervisor 04/21/23 documented as of this encounter
--- OUTSIDE RECORDS SUMMARY | 2025-03-29 09:17 | XMS_ITS | Encounter Summary ---
Author Organization [employer] Address [address] [place] [address], [place] [address] Care Team Providers Care Office Worker Name Role Phone Ava Yap DO Primary Care Provider + [phone] Reason for Visit * Reason Onset Date Comments Appointment Request 07/16/2024 Call Back Request 07/16/2024 Encounter Details Date Type Department Care Team ([facility] st Contact Info) Description 07/16/2024 Telephone [facility] MEDICINE 230 [place], [place] [phone] Ava Yap DO 230 [place], [place] [phone] Appointment Request; Call Back Request Social History [...] she don't want to be without meds. [phone] documented in this encounter Plan of Treatment Upcoming Encounters Date Type Department Care Team (Late st Contact Info) Description 06/04/2025 2:30 PM EST Office Visit [facility] OPTOMETRY [address] [place] [address] Michaelle Goodman, OD 230 [place] [address] 06/05/2025 1:30 PM EST Clinical Support [facility] MEDICINE [address] [place] [address] Denisha Cross RN documented as of this encounter Visit Diagnoses Not on filedocumented in this encounter Additional Health Concerns Assessment Noted Time PHQ-9 Depression Total Score: 5 06/22/20 23 10:59 AM EST documented as of this encounter Care Teams Office Worker Relationship Specialty Start Date End Date Ava Yap DO 230 [place] [address] PCP - General Family Medicine 03/28/11 Avelina Hodges Tap DancerAccounting Administrative Assistant 04/21/23 documented as of this encounter
--- OUTSIDE RECORDS SUMMARY | 2025-03-29 09:18 | XMS_ITS | Encounter Summary ---
Author Organization [employer] Address [address] [facility] 7t [place] [address] Care Team Providers Care Electrician Supervisor Substation Name Role Phone FraciscoAva Primary Care Provider + [phone] Reason for Visit * Reason Comments Med Refill Encounter Details Date Type Department Care Team ([facility] st Contact Info) Description 03/04/2025 Refill [facility] MED [facility] PED[facility] [address] [place] [address] Vesna Sanabria MD 230 [place] [address] Chronic pain of both knees Social History [...] 2:30 PM EST Office Visit [facility] OPTOMETRY [address] [place] [address] Rex, Michaelle, OD [address] [place] [address] 06/05/2025 1:30 PM EST Clinical Support [facility] 230 [place] [address] Denisha Cross, DEVI documented as of this encounter Visit Diagnoses Diagnosis Chronic pain of both knees documented in this encounter Additional Health Concerns Assessment Noted Time PHQ-9 Depression Total Score: 5 06/22/20 23 10:59 AM EST documented as of this encounter Care Teams Electrician Supervisor Substation Relationship Specialty Start Date End Date Ava Yap DO 230 [place] [address] PCP - General Family Medicine 03/28/11 Avelina Hodges Senior Test EngineerFinishing Range Feeder 04/21/23 documented as of this encounter
--- OUTSIDE RECORDS SUMMARY | 2025-03-29 09:18 | XMS_ITS | Encounter Summary ---
Author Organization [employer] Address [address] [place] [address] 7 [place] [address] Care Team Providers Care Wire Spinner Name Role Phone Ava Yap DO Primary Care Provider + [phone] Reason for Visit * Reason Onset Date Comments Prior Authorization 03/19/2025 PA: Yong und Encounter Details Date Type Department Care Team ([facility] st Contact Info) Description 03/19/2025 Telephone [facility]EDS [address] [place] [address] Ava Yap DO 230 [place] [address] Prior Authorization ( PA: Juan) Social History Tobacco Use Types Packs/Day Years [...] encounter Miscellaneous Notes * Telephone Encounter - Sharonda Vyas - 03/28/2025 3:01 PM EDT Pending Provider note * Telephone Encounter - Jerome Mendiola - 03/19/2025 9:41 AM EDT Script for Tirzepatide-Weight Management (Zepbound) 2.5 MG/0.5ML solution auto- injector requires a prior authorization documented in this encounter Plan of Treatment Upcoming Encounters Date Type Department Care Team (Late st Contact Info) Description 06/04/2025 2:30 PM EST Office Visit [facility] OPTOMETRY [address] [place] [address] Michaelle Goodman, OD 230 [place] [address] 06/05/2025 1:30 PM EST Clinical Support [facility] MEDICINE 230 [place], [place] [phone] Denisha Cross, RN documented as of this encounter Visit Diagnoses Not on filedocumented in this encounter Additional Health Concerns Assessment Noted Time PHQ-9 Depression Total Score: 5 06/22/20 10:59 AM EST documented as of this encounter Care Teams Wire Spinner Relationship Specialty Start Date End Date Ava Yap DO 230 [place] [address] PCP - General Family Medicine 03/28/11 Avelina Hodges Cut Off ManHogshead Roller 04/21/23 documented as of this encounter
--- OUTSIDE RECORDS SUMMARY | 2025-03-29 09:18 | XMS_ITS | Encounter Summary ---
Author Organization [employer] Address [address] [facility] 7t [place] [address] Care Team Providers Care Lining Parts Sewer Name Role Phone FraciscoAva Primary Care Provider + [phone] Reason for Visit * Reason Comments Med Refill Encounter Details Date Type Department Care Team ([facility] st Contact Info) Description 03/04/2025 Refill [facility] CH[facility] MED & PEDS [address] [place] [address] Vesna Sanabria MD [address] [place] [address] Chronic pain of both knees Social History [...] Description 06/04/2025 2:30 PM EST Office Visit [facility] OPTOMETRY [address] [place] [address] Rex, Michaelle, OD 230 [place] [address] 06/05/2025 1:30 PM EST Clinical Support [facility] MEDICINE 230 [place] [address] Denisha Cross, DEVI documented as of this encounter Visit Diagnoses Diagnosis Chronic pain of both knees documented in this encounter Additional Health Concerns Assessment Noted Time PHQ-9 Depression Total Score: 5 06/22/20 23 10:59 AM EST documented as of this encounter Care Teams Lining Parts Sewer Relationship Specialty Start Date End Date Ava Yap DO 230 [place] [address] PCP - General Family Medicine 03/28/11 Avelina Hodges Shipping And Receiving AssociateSupervisor Toy Assembly 04/21/23 documented as of this encounter
--- OUTSIDE RECORDS SUMMARY | 2025-03-29 09:18 | XMS_ITS | Clinical Summary ---
Author Organization [employer] Address [address] [place] [address] [address] [place] [address] Care Team Providers Care Personnel Research Scientist Name Role Phone Fracisco Ava Primary Care Provider [phone] Allergies Active Allergy Reactions Criticality Noted Date [...] DAILY NEEDED 180 capsule 1 025 Active Diclofenac Sodium 1 % [...] up to 28 days. 56 tablet 025 Active gabapentin (Neurontin) 400 MG capsuleIndications :Chronic [...] tablet 025 Active LORazepam (Ativan) 2 MG tabletIndications: Anxiety TAKE 1 TABLET BY MOUTH TWICE DAILY IN THE MORNING AND IN THE EVENING NEEDED FOR ANXIETY. 56 tablet 025 Active Tirzepatide-Weight Management (Zepbound) 2.5 MG/0.5ML solution auto-injector Inject 0.5 mL (2.5 mg) under the skin 1 (one) time per week. 2 mL 3 025 Active traMADol (Ultram) 50 MG tabletIndications: Chronic pain of both knees TAKE 1 TABLET BY MOUTH EVERY 6 HOURS NEEDED FOR SEVERE PAIN FOR UP TO 28 DAYS 112 tablet 025 Active pantoprazole (ProtoNix) 40 MG EC tabletIndications: Chronic gastroesophageal reflux disease TAKE 1 TABLET BY MOUTH TWICE DAILY BEFORE MEALS 180 tablet 1 025 Active pantoprazole (ProtoNix) 40 MG EC tabletIndications: Chronic gastroesophageal reflux disease TAKE 1 TABLET BY MOUTH TWICE DAILY BEFORE MEALS 180 tablet 1 025 03/12 Discontinued traMADol (Ultram) 50 MG tabletIndications: Chronic pain of both knees Take 1 tablet (50 mg) by mouth every 6 (six) hours if needed for severe pain for up to 28 days. Do not start before January 30, 2025. 112 tablet 025 03/07 Discontinued Active Problems Patient Care Coordination No te [...] Moderate persistent asthma 07/29/2022 Asthma-COPD overlap syndrome (CMS/HCC) 3 BMI 40.0-44.9, adult ([facility]) 07/29/2022 History of robot-assisted laparoscopic hysterect devan 07/29/2022 History of right oophorectomy 07/29/2022 Peripheral arterial disease 06/03/2022 Anxiety 05/26/2017 Hyperlipidemia 11/24/2016 Bipolar disorder 04/02/2015 Posttraumatic stress disorder 04/02/2015 Resolved Problems Problem Noted Date Diagnosed Date Resolved Date Abscess of axilla, right 12/28/2022 Morbid obesity (CMS/HCC) 12/28/2022 Acute cellulitis 12/28/2022 08/22/2023 Positive blood culture [...] walk in. She was initially seen at [facility] on 08/12 for neck swelling, neck pain, sore throat, and mild sob x [address] scan of soft tissue of neck showed tissue swelling at C2-C4 which possibly reflected retropharyngeal cellulitis. Therefore pt. Was transferred to [facility] for an ENT consult. ENT determined [...] Encounters Date Type Department Care Team Description 03/28/2025 Telephone [facility] [address] [place] [address] Ava Yap DO Prior Authorization 03/21/2025 Telephone [facility] [address] [place] [phone] Ava Yap DO telephone call 03/19/2025 Telephone [facility] [address] [place] [address] Ava Yap DO Prior Authorization ( PA: Juan) 03/11/2025 Refill [facility] [address] [place] [address] Ava Yap DO Chronic gastroesophageal reflux disease 03/06/2025 Refill [facility] [address] [place] [address] Vesna Sanabria MD Chronic pain of both knees 03/04/2025 Refill [facility] [address] [place] [address] Vesna Sanabria MD Chronic pain of both knees 03/04/2025 Refill [facility] [address] [place] [address] Vesna Sanabria MD Chronic pain of both knees 03/03/2025 1:30 PM EDT Clinical Support [address] [address] Denisha Cross RN Long-term current use of opiate analgesic (Primary Dx); Long-term current use of benzodiazepine 03/03/[address] [address] Denisha Cross RN BPI & DAVID Scoring 03/03/2025 Refill [facility] [address] [place] [address] Vesna Sanabria MD Chronic pain of both knees 03/03/2025 Travel 02/28/[address] [address] Ava Yap DO telephone call 02/05/2025 11:30 AM EDT Office Visit [address] [address] Ava Yap DO 02/05/2025 Travel 02/04/2025 Telephone [facility] [address] [place] [address] Ava Yap DO Chart Prep 02/03/2025 Patient Outreach [facility] [address] [place] [address] Ava Yap DO Care Coordination (CP Assigned Patient ED Follow Up) 02/01/2025 Orders Only GENERIC EXTERNAL DATA DEPARTMENT Provider, Generic External Data 01/27/2025 Refill [facility] [address] [place] [address] Ava Yap DO Chronic pain of both knees 01/27/2025 Refill [facility] [address] [place] [address] Ava Yap, Anxiety from Last 3 Months Immunizations Immunization Administration Dates Next Due Hep A, Adult 09/11/2018,03/14/2018 Hep B, adult 09/11/2018,06/27/2018,03/14/2018 [employer] SARS-CoV-2 Vaccination 10/03/2020 Pfizer Covid-19 Vaccine 12+ [...] 2:30 PM EST Office Visit [facility] OPT[facility] [address] [place] [address] Michaelle Goodman, OD [address] [place] [address] 06/05/2025 1:30 PM EST Clinical Support [facility] [address] [place] [address] Denisha Cross, RN Health Maintenance Due Date [...] 2) 12/05/2021 Depression Screening 06/22/2024 06/22/2023, 06/22/20 23 Cervical Cancer Screening 08/23/2024 HPV/Cotest 08/23/2024 08/23/2019, 07/22/2016 DTaP/Tdap/Td Vaccines (2 - Td or Tdap) 12/09/2024 12/09/2014 COVID-19 Vaccine ( - season) 2025 06/15/2021, 10/03/2020 Influenza Vaccine [...] PM EDT Narrative 03/03/2025 1:52 PM EDT [address] [address] XRay Report Signed Patient: Ximena Xiong MR#: [id number] : 1970 Acct:[id number] Age/Sex: 54 / F ADM Date: 03/03/25 Loc: [facility] Attending Dr: Fermin Vyas MD Ordering Physician: Fermin Vyas MD Date of Service: 03/03/25 Procedure(s): XR chest 2V Accession Number(s): [id number] cc: Ava Yap DO; Fermin Vyas MD [...] 03/03/25 1349 DD/ 1335 TD/TT: 03/03/25 1338 Combatant Diver Officer: Procedure Note Donotuseinterpreter, Image - 03/03/[address] [address] XRay Report Signed Patient: Heath XiongR#: [id number] : 1970Acct:[id number] Age/Sex: 54 / FADM Date: 03/03/25 Loc: [facility] Attending Dr: Fermin Vyas MD Ordering Physician: Fermin Vyas MD Date of Service: 03/03/25 Procedure(s): XR chest 2V Accession Number(s): [id number] cc: Ava Yap DO; Fermin Vyas MD [...] 03/03/25 1349 DD/ 1335 TD/TT: 03/03/25 1338 Combatant Diver Officer: [facility] External Provider IMG XR PROCEDURES Edited Result - Final * POCT ELISEO-14 Urine Drug Screen (03/03/2025 1:02 PM EDT) Pathologist [facility] THC Negative Negative Cocaine Screen, Urine Negative [...] - 03/03/2025 1:02 PM EDT UTOX cup Lot#[id number] Exp. 04/01/26 Internal Pass Control Ava Yap DO POINT OF CARE TEST ENTER/HILARIO T ORDERABLES Final Result * High Sensitivity Troponin I (02/01/2025 12:13 PM EDT) Pathologist [facility] TROPONIN I HIGH SENSITIVITY <2.7 <3.5 - 17.0 ng/L [facility] Comment:The Soto high sens itivity Troponin-I results should beused in conjunction with other diagnostic information suchas ECG, clinical observations and information, and patientsymptoms to aid in the diagnosis of NH. 02/01/2025 12:1 3 PM EDT 02/01/2025 12:16 PM EDT Generic External Data Provider LAB BLOOD ORDERAB LES Final Result Performing Organization Address [facility]/ZIP Co de Phone Number [facility] [address] [place] [phone] * SARS-CoV-2 RNA, Influenza A/B, and RSV RNA, Ql NAAT (02/01/2025 12:13 PM EDT) [facility] Influenza A PCR NEGATIVE Negative [facility] Influenza B PCR NEGATIVE Negative [facility] Resp Syncy Virus RNA Qual PCR NEGATIVE Negative [facility] SARS COV2 PCR NEGATIVE Negative [facility] Comment:All test results mus [...] use by authorized laboratories.Testing performed on the [employer] GeneXpert utilizingreal-time RT-PCR.All SARS CoV2 and positive influenza A/B results arereported to [facility]. 02/01/2025 12:1 3 PM EDT 02/01/2025 12:16 PM EDT Generic External Data Provider LAB MICROBIOLOGY - GENERAL ORDERABLES Final Result Performing Organization Address [facility]/ZIP Co de Phone Number [facility] [address] [place] [phone] * CBC auto differential (02/01/2025 12:13 PM EDT) White Blood Count 5.6 4.8 - 10.8 X10*3/uL [facility] Red Blood Count 4.47 4.20 - 5.50 X10*6/uL [facility] Hemoglobin 13.9 12.0 - 16.0 g/dl [facility] Hematocrit 40.0 37.0 - 47.0 % [facility] Mean Corpuscular Volume 89.5 80.0 - 98.0 fL [facility] Mean Corpuscular Hemoglobin 31.1 27.0 - 33.0 pg [facility] Mean Corpuscular HGB Conc 34.8 31.0 - 35.0 g/dl [facility] Red Cell Distribution Width 12.9 11.0 - 16.0 % [facility] Platelet Count 216 160 - 400 X10*3/uL [facility] Mean Platelet Volume 10.7 9.4 - 12.3 fL [facility] Neutrophils Percent Auto 51.1 45 - 73 % [facility] Imm Gran Pct Auto 0.2 0.0 - 0.4 % [facility] Lymphocytes Percent Auto 38.7 20 - 40 % [facility] Monocytes Percent Auto 8.9 2 - 11 % [facility] Eosinophils Percent Auto 0.9 0 - 4 % [facility] Basophils Percent Auto 0.2 0 - 2 % [facility] NRBC Pct Auto 0.0 0.0 - 0.2 /100WBC [facility] Neutrophils Absolute Auto 2.9 2.0 - 8.3 x10*3/uL [facility] Imm Gran Abs Auto 0.01 0.00 - 0.03 X10*3/uL [facility] Lymphocytes Absolute Auto 2.2 1.2 - 4.9 X10*3/uL [facility] Monocytes Absolute Auto 0.5 0.1 - 1.2 X10*3/uL [facility] Eosinophils Absolute Auto 0.1 0.0 - 0.4 X10*3/uL [facility] Basophils Absolute Auto 0.0 0.0 - 0.2 X10*3/uL [facility] NRBC Abs Auto 0.000 0.0 - 0.012 X10*3/uL [facility] 02/01/2025 12:1 3 PM EDT 02/01/2025 12:16 PM EDT us Generic External Data Provider LAB BLOOD ORDERAB LES Final Result [facility] [address] [place] [phone] * Magnesium (02/01/2025 12:13 PM EDT) Magnesium 1.9 1.6 - 2.6 mg/dL [facility] 02/01/2025 12:1 3 PM EDT 02/01/2025 12:16 PM EDT Generic External Data Provider LAB BLOOD ORDERAB LES Final Result Performing Organization Address [facility] Co de Phone Number [facility] [address] [place] [phone] * Lipase (02/01/2025 12:13 PM EDT) Lipase 16 8 - 78 U/L [facility] 02/01/2025 12:1 3 PM EDT 02/01/2025 12:16 PM EDT Generic External Data Provider LAB BLOOD ORDERAB LES Final Result Performing Organization Address [facility] Co de Phone Number [facility] [address] [place] [phone] * Hepatic Function Panel (02/01/2025 12:13 PM EDT) Bilirubin, Total 0.4 0.0 - 1.0 mg/dL [facility] Bilirubin, Direct 0.1 0.0 - 0.5 mg/dL [facility] Aspartate Amino Transferase 26 5 - 31 U/L [facility] Alanine Aminotransferase 30 0 - 31 U/L [facility] Total Protein 7.7 6.5 - 8.0 g/dL [facility] Albumin Level 4.8 3.5 - 5.0 g/dL [facility] Alkaline Phosphatase 79 39 - 117 U/L [facility] 02/01/2025 12:1 3 PM EDT 02/01/2025 12:16 PM EDT us Generic External Data Provider LAB BLOOD ORDERAB LES Final Result [facility] [address] [place] [phone] [phone] * Basic Metabolic Panel (02/01/2025 12:13 PM EDT) Sodium 140 135 - 145 mmol/L [facility] Potassium 4.0 3.3 - 5.1 mmol/L [facility] Chloride 107 96 - 108 mmol/L [facility] Carbon Dioxide 24 22 - 29 mmol/L [facility] Anion Gap 13 12 - 20 [facility] Urea Nitrogen (BUN) 13 9 - 16 mg/dL [facility] Creatinine, Serum 0.73 0.5 - 1.4 mg/dL [facility] Creatinine Clr Calc Pharmacy 96.0 [facility] Comment:Provided height and weight: 152.4 cm,102.3 kg.eGFR (calculated from the MDRD study equation) and eCrCl(calculated from the Cockcroft-Gault equation) are based ondifferent parameters and may not yield comparable results.If eCrCl result is absurd, please check patient'sheight/weight. Estimated Glomerular Filt Rate >60 [facility] Comment:Chronic Kidney Disea se: Estimated GFR < 60 mL/min/1.16g2Glppuv Kidney Disease: Estimated GFR < 15 mL/min/1.73m2 Glucose 113 60 - 115 mg/dL [facility] Calcium 9.5 8.4 - 10.2 mg/dL [facility] 02/01/2025 12:1 3 PM EDT 02/01/2025 12:16 PM EDT Generic External Data Provider LAB BLOOD ORDERAB LES Final Result Performing Organization Address [facility] Co de Phone Number [facility] [address] [place] [phone] * Hemoglobin A1c (10/31/2024 9:00 AM EDT) Hemoglobin A1c 6.0 <6.0 % [facility] Comment:Hemoglobin A1C Refer ence Range Adults: 4.8 - 6.0 % Non diabetic: < 6.0 % Goal: < 7.0 %Additional Action Suggested: > 8.0 %Note: Hemoglobin A1c results are invalid for patients with abnormal amounts of HbF. Blood transfusions may impact the HbA1c concentration in the patient sample. Estimated Average Glucose 126 mg/dL [facility] Comment:eAG = Estimated ave rage glucose which is %A1C expressed asaverage glucose, using the formula of the V1C-FjslgojQftlrtm Glucose study (ADAG), Diabetes Care, Vol.31,#8,Jan. 2007 10/31/2024 9:00 AM EDT 10/31/2024 9:00 AM EDT us Generic External Data Provider LAB BLOOD ORDERAB LES Final Result Performing Organization Address City/[facility]/ZIP Co de Phone Number [facility] [address] [place] [phone] * (ABNORMAL) Lipid Panel, Standard (10/31/2024 9:00 AM EDT) Triglycerides 198(H) <150 mg/dL [facility] Comment:Desirable Triglyceri de: less than 150 mg/dLBorderline High Triglyceride 150-199 mg/dLHigh Triglyceride: 200-499 mg/dLVery High Triglyceride: greater than or equal to 5OO mg/dL Cholesterol 159 <200 mg/dL [facility] Comment:Desirable Cholestero l: less than 200 mg/dLBorderline High Cholesterol: 200-239 mg/dLHigh Cholesterol: greater than 239 mg/dL LDL Cholesterol Calculated 75 <100 mg/dL [facility] Comment:Desirable LDL: less than 100 mg/dLNear Optimal/Above Optimal LDL: 110- 129 mg/dLBorderline High LDL: 130-159 mg/dLHigh LDL: 160-189 mg/dLVery High LDL: greater than or equal to 190 mg/dL HDL Cholesterol 45 >40 mg/dL [facility] Comment:Desirable HDL: great er than 40 mg/dL Note: This HDL assay may give artificially low results in patients with liver disease. 10/31/2024 9:00 AM EDT 10/31/2024 9:00 AM EDT us Generic External Data Provider LAB BLOOD ORDERAB LES Final Result Performing Organization Address [facility] Co de Phone Number [facility] [address] [place] [phone] * Hepatitis C Antibody with Reflex to HCV, RNA, Quantitative, Real-Time PCR (09/05/2024 11:10 AM EDT) Pathologist [facility] Hepatitis C Antibody Nonreactive Nonreactive [facility] Comment:Antibodies to HCV no t detected; does not exclude early acuteHCV infection. Blood Venous blood specimen / Unknown 09/05/2024 11:10 AM EDT 09/05/2024 1:25 PM EDT us Ava Yap DO LAB BLOOD ORDERABLES Final R esult Performing Organization Address [facility] Co de Phone Number [facility] [address] [place] [phone] * HIV-1/2 Antigen and Antibodies, Fourth Generation, with Reflexes (09/05/2024 11:10 AM EDT) HIV AB/AG Nonreactive Nonreactive [facility] Comment:HIV-1 p24 Ag and/or HIV-1/HIV-2 Ab not detected.A test result that is nonreactive does not exclude thepossibility of exposure to or infection with HIV-1 and/orHIV-2. Nonreactive results in this assay for individualswith prior exposure to HIV-1 and/or HIV-2 may be due toantigen and antibody levels that are below the limit ofdetection of this assay.The Lasso HIV Ag/Ab Combo assay result andsupplemental assay results should be interpreted inconjunction with the patient's clinical presentation,history and other laboratory results. If the results areinconsistent with clinical evidence, additional testing issuggested to confirm the result. Blood Venous blood specimen / Unknown 09/05/2024 11:10 AM EDT 09/05/2024 1:25 PM EDT Ava Yap DO LAB BLOOD ORDERABLES Final R esult [facility] [address] [place] [phone] * BI Mammogram Screening Tomosynthesis Bilateral (05/04/2023 1:45 PM EST) Anatomical Region Laterality Modality Breast Bilateral Mammography 05/04/2023 1:45 PM EST Narrative 05/22/2023 6:55 AM EST [address] [place] [address] Mammography Report Signed Patient: Ximena Xiong MR#: [id number] : 1970 Acct:[id number] Age/Sex: 52 / F ADM Date: 05/04/23 Loc: [facility] Attending Dr: Ava Yap DO Ordering Physician: Ava Yap DO Results: 1N egative Date of Service: 05/04/23 Follow Up: 1 Year From Orig ina Mammogram Procedure(s): MM tomosynthesis screening BI Accession Number(s): [id number] cc: Jurcsak,Ava A DO EXAMINATION: MM SCREENING DIGITAL BREAST TOMOSYNTHESIS, [...] in OV> 05/22/23 0651 DD/ 1345 TD/TT: Combatant Diver Officer: Procedure Note Donotuseinterpreter, Image - 05/22/2023 [facility] [address] [place], [place] [address] Mammography Report Signed Patient: Heath XiongR#: [id number] : 1970Acct:[id number] Age/Sex: 52 / FADM Date: 05/04/23 Loc: [facility] Attending Dr: Ava Yap DO Ordering Physician: Ava Yap DOResults: 1N egative Date of Service: 05/04/23Follow Up: 1 Year From Orig inal Mammogram Procedure(s): MM tomosynthesis screening BI Accession Number(s): [id number] cc: Ava Yap DO EXAMINATION: MM SCREENING DIGITAL BREAST TOMOSYNTHESIS, BILATERAL CLINICAL INFORMATION: Screening. Asymptomatic. COMPARISON: Mammography: This study is compared with prior exams dating back to 2016. TECHNIQUE: Digital breast tomosynthesis is performed in [...] in OV> 05/22/23 0651 DD/ 1345 TD/TT: Combatant Diver Officer: Ava Yap DO IM BI PROCEDURES Final Resu lt * HPV E6/E7 RFLX ELMER 16 18/45 (08/23/2019 11:30 AM EST) ADDITIONAL TESTING Not indicated () [facility] Comment: Test Performed by Ijeoma Hernandez, [facility], [address] [place] [address] Jorge López M.D., Ph.D., Director of Laboratories , [place] [id number] HPV 16 RNA Test not performed [facility] HPV 18/45 RNA Test not performed [facility] HPV mRNA E6/E7 Not Detected NOT DETECTED [facility] Comment: This test was performed using the APTIMA(R) HPV Assay ([employer] This assay detects E6/E7 viral messenger RNA (mRNA) from 14 high-risk HPV types (16,18,31,33,35,39,45,51, 52,56,58,59,66,68). For additional information please refer to: http://education.[employer]/faq/UYS233w3 (This link is being provided for informational/ educational purposes only.) The analytical performance characteristics of this assay have been determined by [facility] [place] The modifications have not been cleared or approved by the FDA. This assay has been validated pursuant to the CLIA regulations and is used for clinical purposes. Please note: Effective 03/07/2016, HPV testing will be performed using [employer]'s APTIMA test which targets mRNA. Detecting mRNA instead of DNA, as in older methods, offers significant improvements in specificity. 08/23/2019 11:3 0 AM EST us Ava Yap DO HISTORICAL/NON ORDERABLE LAB S Final Result [facility] Anywhere [address] from Last 3 Months or Most Recently Relevant to Health Maintenance Insurance [facility] C3 DENT[facility] MEDICAID STAND ADULT Care Teams Personnel Research Scientist Relationship Specialty Start Date End Date Ava Yap DO [address] [place] [phone] PCP - General Family Medicine 03/28/11 Avelina Hodges Laboratory VeterinarianRetail Helper 04/21/23
--- OUTSIDE RECORDS SUMMARY | 2025-03-29 09:18 | XMS_ITS | Encounter Summary ---
Author Organization [employer] Address [address] [place] [address] [address] [place] [address] Care Team Providers Care Online Tutor Name Role Phone Ava Yap DO Primary Care Provider + [phone] Reason for Visit * Reason Onset Date Comments Prior Authorization 03/28/2025 Encounter Details Date Type Department Care Team (Late st Contact Info) Description 03/28/2025 Telephone [facility] [address] [place] [address] Ava Yap DO [address] [place] [address] Prior Authorization Social History Tobacco Use Types [...] encounter Miscellaneous Notes * Telephone Encounter - Jerome Mendiola - 03/28/2025 10:54 AM EDT Script for Tirzepatide-Weight Management (Zepbound) 2.5 MG/0.5ML solution auto- injector requires a prior authorization Pt has been waiting for three weeks documented in this encounter Plan of Treatment Upcoming Encounters Date Type Department Care Team (Late st Contact Info) Description 06/04/2025 2:30 PM EST Office Visit [facility] [address] [place] [address] Michaelle Goodman, OD [address] [place] [address] 06/05/2025 1:30 PM EST Clinical Support [facility] [address] [place] [address] Denisha Cross RN documented as of this encounter Visit Diagnoses Not on filedocumented in this encounter Additional Health Concerns Assessment Noted Time PHQ-9 Depression Total Score: 5 06/22/20 23 10:59 AM EST documented as of this encounter Care Teams Online Tutor Relationship Specialty Start Date End Date Ava Yap DO [address] [place] [address] PCP - General Family Medicine 03/28/11 Avelina Hodges Guest Experience ManagerPaper Sealer 04/21/23 documented as of this encounter
== END 2025-03-29 09:16 | disposition home or self-care (01) ==
LOC: HO.CT 09:15
PROVIDERS: PCP Family Medicine; Visit Provider Hospitalist
DX: R04.2 Hemoptysis (principal)
CPT/HCPCS: 71250

== ENCOUNTER → 2025-03-29 09:16 | Outpatient (BNV) | payer MEDICAID, SELFPAY | PROVIDERS: PCP Family Medicine; Visit Provider Radiology Diagnostic Radiology | DX: J84.10 Pulmonary fibrosis, unspecified (principal); K76.0 Fatty (change of) liver, not elsewhere classified | CPT/HCPCS: 71250 ==

== ENCOUNTER 2025-06-16 14:19 | Outpatient (AMB) | payer MEDICAID, SELFPAY ==
[2025-06-16 14:23] VITALS: BP 134/94; PULSE 88; O2SAT 96; BMI 43.3
--- NOTE | 2025-06-16 14:23 | A.OFFVIS_ITS ---
Vital Signs 06/16/25 14:23 Height 5 ft Weight 221 lb 9.033 oz BMI 43.3 BP 134/94 H Blood Pressure Location Lt brachial Position Sitting Pulse 88 Pulse Source Pulse Oximeter Pulse Oximetry (%) 96 Oxygen Delivery Method Room Air Intake Visit Reasons: asthma Closet Builder Required: Yes Closet Builder Services: Closet Builder Offered & Declined Closet Builder Name: MD speaks faroese Soft Sugar Supervisor: Soft Sugar Supervisor offered & declined Accompanied by: Self / Same As Patient Allergies loratadine (From CLARITIN) Allergy (Mild, Verified 06/16/25 14:25) CHILLS AND DIFF BREATHING HPI Comments Details: The patient is a 54 qew-zdej-jhd woman with a known history of asthma in addition to obstructive sleep apnea. Patient was having significant daytime drowsiness And in 2016 she did undergo a sleep study demonstrating severe sleep apnea. She return for titration study documented that she required BiPAP . The patient was set up through [facility]. She was getting supplies regularly. She has been using her BiPAP ever since with very good adherence. She uses a BiPAP more than 4 hours a night. at some point she is soft receiving supplies. She is not sure why does been the issue. She does have a nasal mask. She wonders if she do better with a fullface mask. I did have an F 30 available for trial. Therefore she will try the fullface mask and I will request supplies from her [employer] company. In the meantime the patient has been taking multiple inhalers for significant asthma. It appears that the inhalers have been helpful but she Continues to be symptomatic. Therefore will optimize her respiratory therapy and also simplify by switching her over to Trelegy 200. 08/12/2021 the patient is here for a pulmonary follow-up visit. She is complaining of worsening cough and chest congestion. She has been like this for about 3-4 days. She was tested negative for COVID-19 apparently. She continues use the Flovent. The Trelegy inhaler was not covered. Therefore, will add a long-acting beta at agonist and long-acting muscarinic antagonists combination inhaler to her regimen. Hopefully this will help her with her chest tightness. In the meantime will treated for bronchitis with Z-Jan. If the patient is not better or if she worsens then she can consider starting the prednisone taper. In the meantime she has not been using her PAP therapy. She states the pressures are now too high and she cannot tolerated well. Therefore I did ask her to bring machine into for the next visit so we can adjust the pressures. Patient is now being evaluated for her surgery that she has for the growth on her ovary. [place] hopeful she can have this done soon. 11/19/2021 the patient is here for pulmonary follow-up visit. Her breathing has been about the same. She could not tolerate the Bevespi secondary to tachycardia. Therefore switch over to Trelegy. Hopefully she can tolerate that better. In the meantime she is using her BiPAP. However, feels like the pressures are too high and is hard for her to tolerated. Therefore I did decrease the pressure from 18/14 to 15/12. I am hopeful that she can tolerate this better. Will continue to titrated down accordingly as long as her apnea score stay within normal. Her AHI was below 2 which is reassuring. In addition to that the patient is complaining multiple ailments. She is complaining the lower left extremity is swollen and painful. I did look at it and it looked like her veins were distended and was concern for a DVT. Therefore will have her undergo a Doppler study to rule out DVT. 01/19/2022 the patient is here for a preop evaluation. Overall the patient has been feeling well from a respiratory status. She continues use her respiratory medications she size she uses BiPAP also with good compliance. The BiPAP therapy continues to be affecting beneficial. She has not had any issues with wheezing or shortness of breath requiring additional medications. She did have a swelling of her upper extremity where we had requested an ultrasound ruled out DVT. however the area still affected with likely has some superficial phlebitis. The patient is scheduled to undergo gynecological surgery. This point she optimize pulmonary standpoint to proceed with surgery and anesthesia. 07/15/2022 the patient is here for a pulmonary follow-up visit. Overall the patient is doing well. She does complaint of productive cough. The cough seems to be chronic for her. She has always bringing up phlegm. It is hard for her to do so. She does continue to use the Trelegy with partial improvement of her symptoms. She is looking to see if any other medicines can provided in order to help with chronic bronchitis. In the meantime she did bring her BiPAP. The BiPAP still set at 15/12. She is tolerating it well and her AHI is to. She the patient is using it well more than 4 hours a night. The therapy has been affecting beneficial when she is going to continue with current settings. She has been getting supplies through her [employer]. The patient will go ahead and start Daliresp for her chronic bronchitis. I will also give her short course of azithromycin in case she has any infectious process as well. 07/18/2023 the patient is here for a pulmonary follow-up visit. She has not recovered from COVID-19. She had a couple weeks ago. She did not take Paxlovid. She did develop worsening respiratory complaints. The patient also has been complaining of a persistent cough productive in nature with yellow sputum. Moderate severity. Also has been complaining of left-sided flank discomfort. But typically a little lower than her flank. No pleuritic component to her pain. The patient has been using her BiPAP. The BiPAP therapy continues to be affecting beneficial she does use it every night for more than 4 hours. We also talked about the Daliresp. It has not clear if she is taking it for the chronic bronchitis. She is going to assess her medications at home. As far as her current respiratory complaints the patient likely has a postviral bacterial bronchitis lower respiratory infection so therefore will start her on doxycycline. If the patient is no better she will come in for chest x-ray and call the office. 01/09/2024 the patient is here for pulmonary follow-up visit. The patient continues to have significant dyspnea on exertion. Moderate severity with minimal activity. She feels very breathless. She also uses her respiratory medications and does not have any significant relief. She is on maximum respiratory therapy. her respiratory exam is also reassuring. We did go for brief walking oximetry and the patient's heart rate quickly increase to about 120 beats per minute. Oxygen was stable 98%. Therefore likely that the patient has shortness of breath has to do more with the increased heart rate. Will have her undergo an echocardiogram. She is also having difficulty swallowing. Sometimes she has food stuck in her throat and then she has a hard time breathing. Therefore will go ahead and request a barium swallow as well. She will continue her current respiratory therapy. In the meantime she does continue to use her PAP therapy every night. The PAP therapy continues to be affecting beneficial. She does use it for more than 4 hours a night. 02/10/2025 the patient is here for sick visit. The patient had been in [facility] until for the last week when she started developing worsening cough. Initially phlegm in his started developing blood-tinged sputum. It became worse therefore she went to the ER last week. She will had an x-ray which I personally reviewed without any acute disease. She also had blood work which was reassuring. The patient was discharged with conservative management. She has been noticing that she is still coughing up some blood. She is also complaining of some right-sided flank discomfort. Some pleuritic component to it. Vvdf-ya-jnmysfpe severity. Denies any fevers or chills. Denies any sick contacts. My exam she does have some diminished breath sounds in the right base. Therefore will go ahead and treat her for potentially beginning some pneumonia. If the patient is not better or if she worsens she will definitely need additional imaging such as CT scan of the chest. She had a CAT scan back in 2022 which I personally reviewed demonstrating normal lungs. She did have some granulomas likely from an old infection. The patient also continues use her BiPAP. BiPAP therapy has been affecting beneficial. She has been use it more than 4 hours. Will plan to follow-up in the fall to make sure that she is recovering well. And again if she is not doing well and if her symptoms worsen she is going to be calling for further recommendations. 06/16/2025 the patient is here for pulmonary follow-up visit. Overall the patient has been doing well. She does complain of some neck discomfort especially when she moves her neck. Likely musculoskeletal. She does have her have some radiculopathy discomfort down the left arm. She did follow-up with cardiology and he last EKG was reasonable. Did have some changes but appeared to be stable. She will follow-up with Cardiology next summer although if she develops any worsening symptoms she will call them for an earlier assessment. In the meantime the patient has been trying to use her BiPAP although she has a very old mask and has not gotten any supplies. She does use the machine 4 hours. Every night. Will go ahead and request to see who is providing her supplies and request script sent to her pharmacy. If she is not active with the [employer] will have to do another sleep study in order to get her active. She will bring her BiPAP to the next visit. In the meantime we did provide her with an F20 AirTouch large mask that fit very well and she can use it for now. The patient will go ahead and follow-up in 4 months if any issues arise she can always call for further recommendations [facility] Medical History Epigastric pain Pre-op chest exam Chronic restrictive lung disease NAM treated with BiPAP Asthma-COPD overlap syndrome Sleep apnea Fibromyalgia Hypertension Fatty liver Gall bladder polyp Acid reflux Obesity (BMI 30-39.9) Coronary artery disease Hyperlipidemia Surgical History History of partial hysterectomy History of esophagogastroduodenoscopy History of endometrial ablation Hx of tubal ligation History of cardiac cath Family History Paternal Grandfather No problems noted. Father History of cancer Lung cancer Mother Heart disease Asthma Social History Household Members: Family and Children Housing: House Do you presently have visiting nurse or other home services: No Alcohol intake: never Patient Tobacco Use Status: Former Tobacco user Tobacco use type: Cigarette Years Smoked: 5 years Second Hand Smoke Exposure: No service: No Current occupational status: disabled Sexual orientation: Straight/Heterosexual Gender identity: Female Review of Systems Const Denies weight gain and Denies weight loss ENT Reports no additional complaints, Denies dysphagia and Denies odynophagia Card Reports no additional complaints, Reports palpitations and Reports dyspnea on exertion Resp Reports change in phlegm color, Reports chest congestion, Reports cough, Reports hemoptysis, Reports pain on inspiration, Reports pain with cough and Reports dyspnea on exertion GI Denies belching, Denies melena, Reports bloating, Denies dysphagia, Denies excessive flatus, Denies dyspepsia, Denies heartburn, Denies diarrhea, Denies loose stools, Denies nausea, Denies odynophagia and Denies vomiting Reports no additional complaints Musc Reports no additional complaints and Reports myalgias Skin/Breast Denies rash Neuro Reports no additional complaints Psych Reports no additional complaints Endo Reports no additional complaints and Reports palpitations Physical Exam Vital Signs: Last Vital Signs Pulse 88 06/16/25 14:23 BP 134/94 H 06/16/25 14:23 Pulse Ox 96 06/16/25 14:23 Oxygen Delivery Method Room Air 06/16/25 14:23 BMI result Body Mass Index 43.3 Const General: alert Neck Neck: Yes normal visual inspection, Yes full ROM and Yes no lymphadenopathy Chest Chest palpation & inspection: normal inspection of the chest Resp Effort & Inspection: normal respiratory effort Auscultation: no crackles, no rales, no rhonchi, no wheezes and diminished lung sounds Cardio Rate: regular rate Rhythm: regular rhythm Heart sounds: S1 normal heart sound present and S2 normal heart sound present GI Palpation (GI): Soft to palpation and nontender Auscultation: normal bowel sounds Skin General skin exam: rashes and/or lesions noted Assessment & Plan Assessment & Plan (1) Asthma-COPD overlap syndrome: Code(s): J44.9 - Chronic obstructive pulmonary disease, unspecified Category: Medical (2) NAM treated with BiPAP: Code(s): G47.33 - Obstructive sleep apnea (adult) (pediatric) Category: Medical (3) Chronic restrictive lung disease: Code(s): J98.4 - Other disorders of lung Category: Medical Plan Continue BIPAP 09/06, needs supplies. provided [id number] request new sleep study continue Trelegy continue singulair LAURE as needed Follow-up in 3-4 months Coding Level of Care Code Est Pt Level 4 (39889) Diagnoses Asthma-COPD overlap syndrome J44.9 NAM treated with BiPAP G47.33 Chronic restrictive lung disease J98.4 Time Spent (min) 16
--- OUTSIDE RECORDS SUMMARY | 2025-06-16 17:46 | XMS_ITS | Clinical Summary ---
Author Organization [facility] Address [address] [place] [id number] Care Team Providers Care Legal Project Manager Name Role Phone Pcp, No Primary [...] 50+ (1 of 1 - PCV) 12/05/2021 RSV Vaccine 50 years and old er and Patients (1 - Risk 50-74 years 1-dose series) 12/05/2021 Zoster (Shingles) Vaccine (1 of 2) 12/05/2021 Influenza Vaccine 01/24/2025 COVID-19 Vaccine ( season) 2025, 10/03/2020 Insurance [facility] Care Teams Legal Project Manager Relationship Specialty Start Date End Date Pcp, No PCP - General General Medicine 08/12/22
--- OUTSIDE RECORDS SUMMARY | 2025-06-16 17:46 | XMS_ITS | Encounter Summary ---
Author Organization [employer] Address [address] [facility] 7 [place] [address] Care Team Providers Care Supervisor Liquefaction Name Role Phone Fracisco Ava Primary Care Provider + [phone] Reason for Visit * Reason Comments Med Refill Encounter Details Date Type Department Care Team ([facility] st Contact Info) Description 02/28/2024 Refill [facility] [address] [place], [place] [phone] Johan Kraft MD [address] [place] [address] Social History Tobacco Use Types Packs/Day Years [...] Care Team (Late st Contact Info) Description 09/04/2025 1:00 PM EDT Clinical Support [facility] [address] [place] [phone] Denisha Cross RN documented as of this encounter Visit Diagnoses Not on filedocumented in this encounter Additional Health Concerns Assessment Noted Time PHQ-9 Depression Total Score: 5 06/22/20 23 10:59 AM EST documented as of this encounter Care Teams Supervisor Liquefaction Relationship Specialty Start Date End Date Ava Yap DO [address] [place] [address] PCP - General Family Medicine 03/28/11 Avelina Hodges Electronic Engineering DraftspersonMelting Operator 04/21/23 documented as of this encounter
--- OUTSIDE RECORDS SUMMARY | 2025-06-16 17:46 | XMS_ITS | Encounter Summary ---
Author Organization [employer] Address [address] [facility] 7 [place] [address] Care Team Providers Care Self Propelled Mining Machine Operator Name Role Phone Ava Yap DO Primary Care Provider + [phone] Reason for Visit * Reason Comments Med Refill Encounter Details Date Type Department Care Team ([facility] st Contact Info) Description 05/03/2024 Refill [facility] [address] [place], [place] [phone] Ava Yap DO [address] [place], [place] [phone] Anxiety; Chronic pain of both knees Social [...] Description 09/04/2025 1:00 PM EDT Clinical Support [facility] [address] [place] [address] Denisha Cross RN documented as of this encounter Visit Diagnoses Diagnosis Anxiety Anxiety state, unspecified Chronic pain of both knees documented in this encounter Additional Health Concerns Assessment Noted Time PHQ-9 Depression Total Score: 5 06/22/20 23 10:59 AM EST documented as of this encounter Care Teams Self Propelled Mining Machine Operator Relationship Specialty Start Date End Date Ava Yap DO [address] [place] [address] PCP - General Family Medicine 03/28/11 Avelina Hodges Crop ScoutChild Monitor 04/21/23 documented as of this encounter
--- OUTSIDE RECORDS SUMMARY | 2025-06-16 17:46 | XMS_ITS | Encounter Summary ---
Author Organization [employer] Address [address] [facility] 7 [place] [address] Care Team Providers Care Manager Six Sigma Name Role Phone MaurilioAva arellano Primary Care Provider + [phone] Reason for Visit * Reason Comments Med Refill Encounter Details Date Type Department Care Team ([facility] st Contact Info) Description 06/13/2025 Refill [facility] [address] [place], [place] [phone] Vesna Sanabria MD [address] [place] [address] Anxiety Social History Tobacco Use Types Packs/Day Years Used Date Smoking Tobacco: Former Passive Smoke Exposure: Never Smokeless Tobacco: Never Alcohol Use Standard Drinks/Week Comments Never 0 (1 standard drink = 0.6 oz pur e alcohol) Depression Answer Date Recorded Patient Health Questionnaire-9 Score 0 06/04/2025 Patient Health Questionnaire-9 Score 0 06/04/2025 Last PHQ-9: Questionnaire Data Not on file 1 08/05/2024 Housing Stability Answer Date Recorded What is [...] Date Recorded Patient Health Questionnaire-2 Score 0 06/04/2025 Internet Access Answer Date Recorded Internet Access [...] Description 09/04/2025 1:00 PM EDT Clinical Support [facility] [address] [place] [address] Denisha Cross, DEVI documented as of this encounter Visit Diagnoses Diagnosis Anxiety Anxiety state, unspecified documented in this encounter Additional Health Concerns Assessment Noted Time PHQ-9 Depression Total Score: 0 06/04/20 25 9:47 AM EST documented as of this encounter Care Teams Manager Six Sigma Relationship Specialty Start Date End Date Ava Yap DO [address] [place] [phone] PCP - General Family Medicine 03/28/11 Avelina Hodges Notching Machine OperatorMultiple Pressure Riveter Operator 04/21/23 documented as of this encounter
--- OUTSIDE RECORDS SUMMARY | 2025-06-16 17:46 | XMS_ITS | Encounter Summary ---
Author Organization [facility] Address [address] [place] [address] [address] [address] Care Team Providers Care Pit Hand Name Role Phone Ava Yap DO Primary Care Provider + [phone] Reason for Visit * Reason Comments Med Refill Encounter Details Date Type Department Care Team (Late st Contact Info) Description 11/14/[address] [facility] [address] [place] [phone] Ava Yap DO [address] [place], [place] [phone] Anxiety Social History Tobacco Use Types Packs/Day [...] Description 09/04/2025 1:00 PM EDT Clinical Support [facility] [address] [place], [place] [phone] Denisha Cross RN documented as of this encounter Visit Diagnoses Diagnosis Anxiety Anxiety state, unspecified documented in this encounter Additional Health Concerns Assessment Noted Time PHQ-9 Depression Total Score: 0 07/27/19 23 11:46 AM EST documented as of this encounter Care Teams Pit Hand Relationship Specialty Start Date End Date Ava Yap DO [address] [place] [address] PCP - General Family Medicine 03/28/11 Avelina Hodges Plastic Parts DesignerService Center Supervisor 04/21/23 documented as of this encounter
--- OUTSIDE RECORDS SUMMARY | 2025-06-16 17:46 | XMS_ITS | Encounter Summary ---
Author Organization [employer] Address [address] [place] [address] 7 [place] [address] Care Team Providers Care Light Adjuster Name Role Phone Ava Yap DO Primary Care Provider + [phone] Reason for Visit * Reason Comments Med Refill Encounter Details Date Type Department Care Team ([facility] st Contact Info) Description 01/29/[address] [facility] [address] [place], [place] [phone] Ava Yap DO [address] [place], [place] [phone] Anxiety; Chronic bilateral low back pain, unspecified [...] PM EDT Clinical Support [facility] [address] [place] [address] Denisha Cross, DEVI documented as of this encounter Visit Diagnoses Diagnosis Anxiety Anxiety state, unspecified Chronic bilateral low back pain, unspecified whether sciatica present documented in this encounter Additional Health Concerns Assessment Noted Time PHQ-9 Depression Total Score: 5 06/22/20 23 10:59 AM EST documented as of this encounter Care Teams Light Adjuster Relationship Specialty Start Date End Date Ava Yap DO [address] [place] [address] PCP - General Family Medicine 03/28/11 Avelina Hodges Gore SeamerObstetrics Gynecology Physician 04/21/23 documented as of this encounter
--- OUTSIDE RECORDS SUMMARY | 2025-06-16 17:46 | XMS_ITS | Encounter Summary ---
Author Organization [employer] Address 75 [facility] 7 [place] [address] Care Team Providers Care Energy Control Officer Name Role Phone Ava Yap DO Primary Care Provider + [phone] Reason for Visit * Reason Comments Med Refill Encounter Details Date Type Department Care Team ([facility] st Contact Info) Description 12/14/2023 Refill [facility] MEDICINE [address] [place], [place] [phone] Ava Yap DO 230 [place], [place] [phone] Anxiety Social History Tobacco Use Types Packs/Day [...] 1:00 PM EDT Clinical Support [facility] MEDICINE [address] [place] [address] Denisha Cross RN documented as of this encounter Visit Diagnoses Diagnosis Anxiety Anxiety state, unspecified documented in this encounter Additional Health Concerns Assessment Noted Time PHQ-9 Depression Total Score: 5 06/22/20 23 10:59 AM EST documented as of this encounter Care Teams Energy Control Officer Relationship Specialty Start Date End Date Ava Yap DO [address] [place] [phone] PCP - General Family Medicine 03/28/11 Avelina Hodges Director Corporate CommunicationsPersonal Banking Advisor 04/21/23 documented as of this encounter
--- OUTSIDE RECORDS SUMMARY | 2025-06-16 17:46 | XMS_ITS | Encounter Summary ---
Author Organization [employer] Address [address] [place] [address] 7 [place] [address] Care Team Providers Care Hand Rug Braider Name Role Phone Ava Yap DO Primary Care Provider + [phone] Reason for Visit * Reason Comments Med Refill Encounter Details Date Type Department Care Team ([facility] st Contact Info) Description 07/04/2023 Refill [facility] MEDICINE 230 [place], [place] [phone] Ava Yap DO 230 [place], [place] [phone] Anxiety; Chronic bilateral low back pain, unspecified [...] Description 09/04/2025 1:00 PM EDT Clinical Support [facility] MEDICINE 230 [place] [address] Denisha Cross, DEVI documented as of this encounter Visit Diagnoses Diagnosis Anxiety Anxiety state, unspecified Chronic bilateral low back pain, unspecified whether sciatica present documented in this encounter Additional Health Concerns Assessment Noted Time PHQ-9 Depression Total Score: 5 06/22/20 23 10:59 AM EST documented as of this encounter Care Teams Hand Rug Braider Relationship Specialty Start Date End Date Ava Yap DO 230 [place] [address] PCP - General Family Medicine 03/28/11 Avelina Hodges Lay BrotherYield Clerk 04/21/23 documented as of this encounter
--- OUTSIDE RECORDS SUMMARY | 2025-06-16 17:46 | XMS_ITS | Encounter Summary ---
Author Organization [employer] Address 75 [facility] 7 [place] [address] Care Team Providers Care Advertising Sales Consultant Name Role Phone Ava Yap DO Primary Care Provider + [phone] Reason for Visit * Reason Comments Med Refill Encounter Details Date Type Department Care Team ([facility] st Contact Info) Description 06/09/2025 Refill [facility] CHC MED & PEDS [address] [place] [address] Ava Yap DO 230 [place] [address] Anxiety; Chronic pain of both knees Social [...] Description 09/04/2025 1:00 PM EDT Clinical Support [facility] MEDICINE [address] [place] [address] Denisha Cross, DEVI documented as of this encounter Visit Diagnoses Diagnosis Anxiety Anxiety state, unspecified Chronic pain of both knees documented in this encounter Additional Health Concerns Assessment Noted Time PHQ-9 Depression Total Score: 0 06/04/20 25 9:47 AM EST documented as of this encounter Care Teams Advertising Sales Consultant Relationship Specialty Start Date End Date Ava Yap DO 230 [place] [address] PCP - General Family Medicine 03/28/11 Avelina Hodges Channel ManCaddie 04/21/23 documented as of this encounter
--- OUTSIDE RECORDS SUMMARY | 2025-06-16 17:46 | XMS_ITS | Encounter Summary ---
Author Organization [employer] Address [address] [place] [address] 7 [place] [address] Care Team Providers Care Traffic Sergeant Name Role Phone Ava Yap DO Primary Care Provider + [phone] Reason for Visit * Reason Comments Med Refill Encounter Details Date Type Department Care Team ([facility] st Contact Info) Description 03/22/2024 Refill [facility] MEDICINE 230 [place], [place] [phone] Ava Yap DO 230 [place], [place] [phone] Chronic low back pain, unspecified back pain [...] Description 09/04/2025 1:00 PM EDT Clinical Support [facility] MEDICINE 230 [place] [address] Denisha Cross, DEVI documented as of this encounter Visit Diagnoses Diagnosis Chronic low back pain, unspecified back pain laterality, unspecified whether sciatica present documented in this encounter Additional Health Concerns Assessment Noted Time PHQ-9 Depression Total Score: 5 06/22/20 23 10:59 AM EST documented as of this encounter Care Teams Traffic Sergeant Relationship Specialty Start Date End Date Ava Yap DO 230 [place] [address] PCP - General Family Medicine 03/28/11 Avelina Hodges Back End EngineerBark Tanner 04/21/23 documented as of this encounter
--- OUTSIDE RECORDS SUMMARY | 2025-06-16 17:46 | XMS_ITS | Encounter Summary ---
Author Organization [employer] Address 75 [facility] 7 [place] [address] Care Team Providers Care Research Manufacturing Operator Name Role Phone Ava Yap DO Primary Care Provider + [phone] Reason for Visit * Reason Comments Med Refill Encounter Details Date Type Department Care Team ([facility] st Contact Info) Description 05/03/2024 Refill [facility] MEDICINE 230 [place], [place] [phone] Ava Yap DO 230 [place], [place] [phone] Anxiety; Chronic pain of both knees Social [...] Description 09/04/2025 1:00 PM EDT Clinical Support [facility] MEDICINE 230 [place] [address] Denisha Cross RN documented as of this encounter Visit Diagnoses Diagnosis Anxiety Anxiety state, unspecified Chronic pain of both knees documented in this encounter Additional Health Concerns Assessment Noted Time PHQ-9 Depression Total Score: 5 06/22/20 23 10:59 AM EST documented as of this encounter Care Teams Research Manufacturing Operator Relationship Specialty Start Date End Date Ava Yap DO 230 [place] [address] PCP - General Family Medicine 03/28/11 Avelina Hodges Microsoft Application DeveloperCyber Engineer 04/21/23 documented as of this encounter
--- OUTSIDE RECORDS SUMMARY | 2025-06-16 17:47 | XMS_ITS | Encounter Summary ---
Author Organization [employer] Address 75 [facility] 7t [place] [address] Care Team Providers Care Twisting Frame Fixer Name Role Phone FraciscoAva Primary Care Provider + [phone] Reason for Visit * Reason Comments Med Refill Encounter Details Date Type Department Care Team ([facility] st Contact Info) Description 03/04/2025 Refill [facility] CHC MED & PEDS [address] [place] [address] Vesna Sanabria MD 230 [place] [address] Chronic pain of both knees Social History [...] Description 09/04/2025 1:00 PM EDT Clinical Support [facility] MEDICINE 230 [place] [address] Denisha Cross, DEVI documented as of this encounter Visit Diagnoses Diagnosis Chronic pain of both knees documented in this encounter Additional Health Concerns Assessment Noted Time PHQ-9 Depression Total Score: 5 06/22/20 23 10:59 AM EST documented as of this encounter Care Teams Twisting Frame Fixer Relationship Specialty Start Date End Date Ava Yap DO 230 [place] [address] PCP - General Family Medicine 03/28/11 Avelina Hodges Director Of Marketing CommunicationsHalf Backer 04/21/23 documented as of this encounter
--- OUTSIDE RECORDS SUMMARY | 2025-06-16 17:47 | XMS_ITS | Encounter Summary ---
Author Organization [employer] Address [address] [place] [address] 7 [place] [address] Care Team Providers Care Crew Member Name Role Phone Ava Yap DO Primary Care Provider + [phone] Encounter Details Date Type Department Care Team ([facility] Contact Info) Description 07/18/2022 Orders Only [facility] CHC MED & PEDS 505 [place] [address] Ava Holt LPN Social History Tobacco Use [...] Department Care Team (Late Contact Info) Description 09/04/2025 1:00 PM EDT Clinical Support [facility] MEDICINE 230 [place] [address] Denisha Cross RN documented as of this [...] AM EST) Influenza A PCR NEGATIVE Negative [facility] Influenza B PCR NEGATIVE Negative [facility] Resp Syncy Virus RNA Qual PCR NEGATIVE Negative [facility] SARS COV2 PCR NEGATIVE Negative [facility] SARS/Flu/RSV Note See Note [facility] Comment:All test results mus t [...] use by authorized laboratories.Testing performed on the [employer] GeneXpert utilizingreal-time RT-PCR.All SARS CoV2 and positive influenza A/B results arereported to [facility]. 08/12/2022 10:3 2 AM EST 08/12/2022 10:37 AM EST us [facility] Exter nal Provider LAB MICROBIOLOGY - GENERAL ORDERABLES Final Result [facility] [address] [place] [phone] * Sed Rate by Modified Claudiaren (08/12/2022 10:32 AM EST) Erythrocyte Sedimentation Rate 16 0 - 20 MM/HR [facility] Comment:Patients with polycy themia and many hemoglobin abnormalitiesmay have depressed sed rates whereas patients with anemiamay have elevated sed rates. 08/12/2022 10:3 2 AM EST 08/12/2022 10:37 AM EST [facility] External Provider LAB BLO OD ORDERABLES Final Result Performing Organization Address City/[facility]/ZIP Co de Phone Number [facility] [address] [place] [address] [phone] * C-reactive Protein (08/12/2022 10:32 AM EST) Pathologist [facility] C Reactive Protein 0.41 < or = 0.50 mg/dL [facility] 08/12/2022 10:3 2 AM EST 08/12/2022 10:37 AM EST [facility] External Provider LAB BLO OD ORDERABLES Final Result Performing Organization Address City/[facility]/ZIP Co de Phone Number [facility] [address] [place] [address] [phone] * (ABNORMAL) Basic Metabolic Panel (08/12/2022 10:32 AM EST) Sodium 142 135 - 145 mmol/L [facility] Potassium 4.3 3.3 - 5.1 mmol/L [facility] Chloride 109(H) 96 - 108 mmol/L [facility] Carbon Dioxide 23 22 - 29 mmol/L [facility] Anion Gap 14 12 - 20 [facility] Urea Nitrogen (BUN) 11 9 - 16 mg/dL [facility] Creatinine, Serum 0.76 0.5 - 1.4 mg/dL [facility] Creatinine Clr Calc Pharmacy 92.0 [facility] Comment:Provided height and weight: 149.86 cm,99.79 kg.eGFR (calculated from the MDRD study equation) and eCrCl(calculated from the Cockcroft-Gault equation) are based ondifferent parameters and may not yield comparable results.If eCrCl result is absurd, please check patient'sheight/weight. Estimated Glomerular Filt Rate >60 [facility] Comment:NOTE: For -Am erican individuals, multiply the result by 1.210.Chronic Kidney Disease: Estimated GFR < 60 mL/min/1.91o2Hosban Kidney Disease: Estimated GFR < 15 mL/min/1.73m2 Glucose 113 60 - 115 mg/dL [facility] Calcium 9.7 8.4 - 10.2 mg/dL [facility] 08/12/2022 10:3 2 AM EST 08/12/2022 10:37 AM EST us [facility] External Provider LAB BLO OD ORDERABLES Final Result [facility] [address] [place] [address] [phone] * (ABNORMAL) CBC auto differential (08/12/2022 10:32 AM EST) White Blood Count 5.9 4.8 - 10.8 X10*3/uL [facility] Red Blood Count 4.44 4.20 - 5.50 X10*6/uL [facility] Hemoglobin 13.4 12.0 - 16.0 g/dl [facility] Hematocrit 40.5 37.0 - 47.0 % [facility] Mean Corpuscular Volume 91.2 80.0 - 98.0 fL [facility] Mean Corpuscular Hemoglobin 30.2 27.0 - 33.0 pg [facility] Mean Corpuscular HGB Conc 33.1 31.0 - 35.0 g/dl [facility] Red Cell Distribution Width 13.2 11.0 - 16.0 % [facility] Platelet Count 252 160 - 400 X10*3/uL [facility] Mean Platelet Volume 10.7 9.4 - 12.3 fL [facility] Neutrophils Percent Auto 49.0 45 - 73 % [facility] Imm Gran Pct Auto 0.2 0.0 - 0.4 % [facility] Lymphocytes Percent Auto 40.9(H) 20 - 40 % [facility] Monocytes Percent Auto 8.8 2 - 11 % [facility] Eosinophils Percent Auto 0.8 0 - 4 % [facility] Basophils Percent Auto 0.3 0 - 2 % [facility] NRBC Pct Auto 0.0 0.0 - 0.2 /100WBC [facility] Neutrophils Absolute Auto 2.9 2.0 - 8.3 x10*3/uL [facility] Imm Gran Abs Auto 0.01 0.00 - 0.03 X10*3/uL [facility] Lymphocytes Absolute Auto 2.4 1.2 - 4.9 X10*3/uL [facility] Monocytes Absolute Auto 0.5 0.1 - 1.2 X10*3/uL [facility] Eosinophils Absolute Auto 0.1 0.0 - 0.4 X10*3/uL [facility] Basophils Absolute Auto 0.0 0.0 - 0.2 X10*3/uL [facility] NRBC Abs Auto 0.000 0.0 - 0.012 X10*3/uL [facility] 08/12/2022 10:3 2 AM EST 08/12/2022 10:37 AM EST us [facility] External Provider LAB BLO OD ORDERABLES Final Result [facility] [address] [place], [place] [phone] * Strep A Nucleic Acid (08/12/2022 9:10 AM EST) IDNOW SERIAL# [id number] [facility] Strep A Nucleic Acid Negative Negative [facility] Comment:All test results mus t be correlated with clinical findings.This test has not been evaluated for monitoring treatment ofinfection.Additional follow-up testing using the culture method isrequired if the result is negative and clinical symptomspersist, or in the event of an acute rheumatic feveroutbreak. 08/12/2022 9:10 AM EST 08/12/2022 9:12 AM EST [facility] Exter nal Provider LAB MICROBIOLOGY - GENERAL ORDERABLES Final Result [facility] [address] [place] [phone] * CT Chest w/o Contrast (08/09/2022 9:07 AM EST) Anatomical Region Laterality Modality Body, Chest Computed Tomogra phy 08/09/2022 9:07 AM EST Narrative 08/13/2022 11:33 AM EST [address] [address] [address] Scan Report Signed Patient: Ximena Xiong MR#: [id number] : 1970 Acct:[id number] Age/Sex: 51 / F ADM Date: 08/09/22 Loc: HO.CT Attending Dr: Ava Yap DO Ordering Physician: Ava Yap DO Date of Service: 08/09/22 Procedure(s): CT chest wo IV con Accession Number(s): [id number] cc: Ava Yap DO EXAMINATION: CT CHEST [...] in OV> 08/13/22 1131 DD/ 0907 TD/TT: Pepper Cutter: SS Procedure Note Donotuseinterpreter, Image - 08/13/[address] [place] [address] [address] Scan Report Signed Patient: Kody Xiong#: [id number] : 1970Acct:[id number] Age/Sex: 51 / FADM Date: 08/09/22 Loc: HO.CT Attending Dr: Ava Yap DO Ordering Physician: Ava Yap DO Date of Service: 08/09/22 Procedure(s): CT chest wo IV con Accession Number(s): [id number] cc: Ava Yap DO EXAMINATION: CT CHEST [...] in OV> 08/13/22 1131 DD/ 0907 TD/TT: Pepper Cutter: MEDARDO [facility] External Provider IMG CT PROCEDURES Edited Result - Final documented in this encounter Visit Diagnoses Not on filedocumented in this encounter Care Teams Crew Member Relationship Specialty Start Date End Date Ava Yap DO [address] [place] [address] PCP - General Family Medicine 03/28/11 Avelina Hodges Informatica Mdm ArchitectInternal Medicine Veterinary Technician 04/21/23 documented as of this encounter
--- OUTSIDE RECORDS SUMMARY | 2025-06-16 17:47 | XMS_ITS | Encounter Summary ---
Author Organization [employer] Address [address] [place] [address] [address], [place] [address] Care Team Providers Care Machinist Bench Name Role Phone Ava Yap DO Primary Care Provider + [phone] Encounter Details Date Type Department Care Team ([facility] Contact Info) Description 07/19/[address] [phone] Ava Yap DO [address] [place] [address] [phone] Social History Tobacco Use Types Packs/Day Years [...] Description 09/04/2025 1:00 PM EDT Clinical Support [address] [phone] Denisha Cross RN documented as of this encounter Visit Diagnoses Not on filedocumented in this encounter Care Teams Machinist Bench Relationship Specialty Start Date End Date Ava Yap DO [address] [place] [address] PCP - General Family Medicine 03/28/11 Avelina Hodges Machine Package SealerBusiness Department Chair 04/21/23 documented as of this encounter
--- OUTSIDE RECORDS SUMMARY | 2025-06-16 17:47 | XMS_ITS | Encounter Summary ---
Author Organization [employer] Address 75 [facility] 7 [place] [address] Care Team Providers Care Bulk Gas Specialist Name Role Phone Ava Yap DO Primary Care Provider + [phone] Reason for Visit * Reason Onset Date Comments Med Refill Schedule RN PSYCHIATRIC Initial 04/26/2023 Encounter Details Date Type Department Care Team (Late st Contact Info) Description 04/26/2023 Refill [facility] CHC MED & PEDS [address] [place] [address] Ava Yap DO [address] [place] [address] Anxiety; Chronic bilateral low back pain, unspecified [...] - 04/26/2023 11:55 AM EDT TC via P/I#[id number], male voice answered, stated pt was not available. L/M with Rich requesting pt call back to schedule RN PSYCHIATRIC Initial appt. documented in this encounter Plan of Treatment Upcoming Encounters Date Type Department Care Team (Late st Contact Info) Description 09/04/2025 1:00 PM EDT Clinical Support [facility] MEDICINE [address] [place] [address] Denisha Cross, RN documented as of this encounter Visit Diagnoses Diagnosis Anxiety Anxiety state, unspecified Chronic bilateral low back pain, unspecified whether sciatica present documented in this encounter Additional Health Concerns Assessment Noted Time PHQ-9 Depression Total Score: 21 023 10:23 AM EDT documented as of this encounter Care Teams Bulk Gas Specialist Relationship Specialty Start Date End Date Ava Yap DO [address] [place] [address] PCP - General Family Medicine 03/28/11 Avelina Hodges Combination TechnicianPlate And Frame Filter Operator 04/21/23 documented as of this encounter
--- OUTSIDE RECORDS SUMMARY | 2025-06-16 17:47 | XMS_ITS | Encounter Summary ---
Author Organization [employer] Address [address] [place] [address] 7 [place] [address] Care Team Providers Care Engagement Lead Name Role Phone Ava Yap DO Primary Care Provider + [phone] Reason for Visit * Reason Onset Date Comments Prior Authorization 10/16/2024 Encounter Details Date Type Department Care Team (Late st Contact Info) Description 10/16/2024 Telephone [facility] CHC MED & PEDS [address] [place] [address] Ava Yap DO [address] [place] [address] Prior Authorization Social History Tobacco Use Types [...] Description 09/04/2025 1:00 PM EDT Clinical Support [facility] MEDICINE [address] [place] [address] Denisha Cross, DEVI documented as of this encounter Visit Diagnoses Not on filedocumented in this encounter Additional Health Concerns Assessment Noted Time PHQ-9 Depression Total Score: 5 06/22/20 10:59 AM EST documented as of this encounter Care Teams Engagement Lead Relationship Specialty Start Date End Date Ava Yap DO [address] [place] [address] PCP - General Family Medicine 03/28/11 Avelina Hodges Cooler WorkerGlassware Defect Repairer 04/21/23 documented as of this encounter
--- OUTSIDE RECORDS SUMMARY | 2025-06-16 17:47 | XMS_ITS | Encounter Summary ---
Author Organization [employer] Address [address] [place] [address] 7 [place] [address] Care Team Providers Care Vial Gauger Name Role Phone Ava Yap DO Primary Care Provider + [phone] Reason for Visit * Reason Comments Med Refill Encounter Details Date Type Department Care Team ([facility] st Contact Info) Description 07/05/2023 Refill [facility] MEDICINE [address] [place], [place] [phone] Ava Yap DO 230 [place], [place] [phone] Chronic bilateral low back pain, unspecified whether [...] Description 09/04/2025 1:00 PM EDT Clinical Support [facility] MEDICINE [address] [place] [address] Denisha Cross, DEVI documented as of this encounter Visit Diagnoses Diagnosis Chronic bilateral low back pain, unspecified whether sciatica present Anxiety Anxiety state, unspecified documented in this encounter Additional Health Concerns Assessment Noted Time PHQ-9 Depression Total Score: 5 06/22/20 23 10:59 AM EST documented as of this encounter Care Teams Vial Gauger Relationship Specialty Start Date End Date Ava Yap DO [address] [place] [address] PCP - General Family Medicine 03/28/11 Avelina Hodges Outside Food ServerOptical Brightener Maker Helper 04/21/23 documented as of this encounter
--- OUTSIDE RECORDS SUMMARY | 2025-06-16 17:47 | XMS_ITS | Encounter Summary ---
Author Organization [employer] Address 75 [facility] 7t [place] [address] Care Team Providers Care Clinic Coordinator Name Role Phone FraciscoAva Primary Care Provider + [phone] Reason for Visit * Reason Comments Med Refill Encounter Details Date Type Department Care Team ([facility] st Contact Info) Description 03/04/2025 Refill [facility] CHC MED & PEDS [address] [place] [address] Vesna Sanabria MD [address] [place] [address] Chronic pain of both knees Social History [...] Description 09/04/2025 1:00 PM EDT Clinical Support [facility] MEDICINE [address] [place] [address] Denisha Cross, DEVI documented as of this encounter Visit Diagnoses Diagnosis Chronic pain of both knees documented in this encounter Additional Health Concerns Assessment Noted Time PHQ-9 Depression Total Score: 5 06/22/20 23 10:59 AM EST documented as of this encounter Care Teams Clinic Coordinator Relationship Specialty Start Date End Date Ava Yap DO [address] [place] [address] PCP - General Family Medicine 03/28/11 Avelina Hodges Process HelperZipper Cutter 04/21/23 documented as of this encounter
--- OUTSIDE RECORDS SUMMARY | 2025-06-16 17:47 | XMS_ITS | Encounter Summary ---
Author Organization [employer] Address [address] [place] [address] 7 [place] [address] Care Team Providers Care Christian Science Nurse Name Role Phone Ava Yap DO Primary Care Provider + [phone] Reason for Visit * Reason Onset Date Comments Prior Authorization 03/19/2025 PA: Yong und Encounter Details Date Type Department Care Team ([facility] st Contact Info) Description 03/19/2025 Telephone [facility] MED & PEDS [address] [place] [address] Ava Yap DO [address] [place] [address] Prior Authorization ( PA: Juan) Social History [...] * Telephone Encounter - Sharonda Vyas - 04/25/2025 3:46 PM EDT Patient is Prediabetic, please trial Mounjaro before ordering Zepbound, per formulary (04/19). * Telephone Encounter - Marie Hernandes - 04/02/2025 3:15 PM EDT Tc from pt requesting status on Zepbound per last note pending provider note. PCP Dr. Yap * Telephone Encounter - Sharonda Vyas - [...] Description 09/04/2025 1:00 PM EDT Clinical Support [facility] MEDICINE [address] [place] [address] Denisha Cross, DEVI documented as of this encounter Visit Diagnoses Not on filedocumented in this encounter Additional Health Concerns Assessment Noted Time PHQ-9 Depression Total Score: 5 06/22/20 10:59 AM EST documented as of this encounter Care Teams Christian Science Nurse Relationship Specialty Start Date End Date Ava Yap DO [address] [place] [address] PCP - General Family Medicine 03/28/11 Avelina Hodges Brake MechanicTractor Crane Operator 04/21/23 documented as of this encounter
--- OUTSIDE RECORDS SUMMARY | 2025-06-16 17:47 | XMS_ITS | Encounter Summary ---
Author Organization [employer] Address [address] [place] [address] [address] [place] [address] Care Team Providers Care Melt Room Operator Name Role Phone MaurilioAva arellano Primary Care Provider + [phone] Reason for Visit * Reason Comments Med Refill Encounter Details Date Type Department Care Team ([facility] st Contact Info) Description 04/26/[address] [facility]INE [address] [place], [place] [phone] Vesna Sanabria MD [address] [place] [address] Anxiety Social History Tobacco Use Types Packs/Day [...] PM EDT Clinical Support [facility] [address] [place] [address] Denisha Cross RN documented as of this encounter Visit Diagnoses Diagnosis Anxiety Anxiety state, unspecified documented in this encounter Additional Health Concerns Assessment Noted Time PHQ-9 Depression Total Score: 21 023 10:23 AM EDT documented as of this encounter Care Teams Melt Room Operator Relationship Specialty Start Date End Date Ava Yap DO [address] [place] [address] PCP - General Family Medicine 03/28/11 Avelina Hodges Asphalt SpreaderBotanical Technical Officer 04/21/23 documented as of this encounter
--- OUTSIDE RECORDS SUMMARY | 2025-06-16 17:47 | XMS_ITS | Encounter Summary ---
Author Organization [employer] Address [address] [place] [address] 7 [place] [address] Care Team Providers Care Chain Mender Name Role Phone MaurilioAva arellano Primary Care Provider + [phone] Reason for Visit * Reason Comments Med Refill Encounter Details Date Type Department Care Team ([facility] st Contact Info) Description 08/04/2023 Refill [facility] [address] [place], [place] [phone] Vesna Sanabria MD [address] [place] [address] Chronic bilateral low back pain, unspecified whether [...] [facility] [address] [place] [address] Denisha Cross, DEVI documented as of this encounter Visit Diagnoses Diagnosis Chronic bilateral low back pain, unspecified whether sciatica present documented in this encounter Additional Health Concerns Assessment Noted Time PHQ-9 Depression Total Score: 5 06/22/20 23 10:59 AM EST documented as of this encounter Care Teams Chain Mender Relationship Specialty Start Date End Date Ava Yap DO [address] [place] [address] PCP - General Family Medicine 03/28/11 Avelina Hodges Academic AdvisorAccount Group Supervisor 04/21/23 documented as of this encounter
--- OUTSIDE RECORDS SUMMARY | 2025-06-16 17:47 | XMS_ITS | Encounter Summary ---
Author Organization [facility] Address [address] [place] [address] Care Team Providers Care Inserter Name Role Phone Ava Yap DO Primary Care Provider + [phone] Reason for Visit * Reason Comments Med Refill Encounter Details Date Type Department Care Team (Late st Contact Info) Description 03/19/2023 Refill [facility] MED[facility]INE [address] [place] [address] [phone] Ava Yap DO [address] [place], [place] [phone] Social History Tobacco Use Types Packs/Day Years [...] Description 09/04/2025 1:00 PM EDT Clinical Support [facility] [address] [place] [phone] Denisha Cross RN documented as of this encounter Visit Diagnoses Not on filedocumented in this encounter Additional Health Concerns Assessment Noted Time PHQ-9 Depression Total Score: 21 023 10:23 AM EDT documented as of this encounter Care Teams Inserter Relationship Specialty Start Date End Date Ava Yap DO [address] [place] [address] PCP - General Family Medicine 03/28/11 Avelina Hodges Senior Visual DesignerApplication Manager 04/21/23 documented as of this encounter
--- OUTSIDE RECORDS SUMMARY | 2025-06-16 17:47 | XMS_ITS | Clinical Summary ---
Author Organization [employer] Address [address] [place] [address] [address] [place] [address] Care Team Providers Care Scrubber Operator Name Role Phone Fracisco Ava Primary Care Provider [phone] Allergies Active Allergy Reactions Criticality Noted Date [...] IN EACH NOSTRIL EVERY DAY 023 Active SUMAtriptan (Imitrex) 50 MG tablet TAKE [...] PATIENT RESPONDS. 2 each 3 024 Active montelukast (Singulair) 10 MG tablet Take 1 tablet (10 mg) by mouth at bedtime. 90 tablet 024 Active DULoxetine (Cymbalta) [address] capsuleIndications :Posttraumatic stress disorder TAKE 1 CAPSULE BY MOUTH EVERY DAY 30 capsule 024 Active Diclofenac Sodium 1 % gel Apply [...] chew, or split. 21 tablet 025 Active pantoprazole (ProtoNix) 40 MG EC tabletIndications: Chronic gastroesophageal reflux disease TAKE 1 TABLET BY MOUTH TWICE DAILY BEFORE MEALS 180 tablet 1 025 Active docusate sodium (Colace) 100 MG capsule TAKE 1 CAPSULE BY MOUTH TWICE DAILY NEEDED 180 capsule 1 025 Active Multiple Vitamins-Iron (Tab-A-Colton/Iron) tablet TAKE 1 TABLET BY MOUTH EVERY DAY WITH FOOD 90 tablet 3 025 Active lisinopril 5 MG tablet TAKE 1 TABLET BY MOUTH EVERY DAY 90 tablet 1 025 Active cetirizine (ZyrTEC) 10 MG tabletIndications: Seasonal allergic rhinitis, unspecified trigger Take 1 tablet (10 mg) by mouth Once per day. 90 tablet 2 025 Active Ventolin HFA 108 (90 Base) MCG/ACT inhalerIndications :Mild persistent asthma without complication INHALE 2 PUFFS BY MOUTH EVERY 6 HOURS NEEDED FOR WHEEZING 18 g 1 11/17/2 025 Active Anoro Ellipta 62.5-25 MCG/ACT aerosol powder INHALE 1 PUFF BY MOUTH EVERY DAY AT THE SAME TIME Active Tirzepatide (Mounjaro) 5 MG/0.5ML solution auto-injector Inject 5 mg under the skin 1 (one) time per week. 2 mL 3 Active gabapentin (Neurontin) 400 MG capsuleIndications :Chronic low back pain, unspecified back pain laterality, unspecified whether sciatica present TAKE 1 CAPSULE BY MOUTH TWICE DAILY IN THE MORNING AND AT NOON and TAKE 2 CAPSULES AT BEDTIME 120 capsule 5 06/11/20 25 1:28 PM EST Active LORazepam (Ativan) 2 MG tabletIndications: Anxiety TAKE 1 TABLET BY MOUTH TWICE DAILY IN THE MORNING AND IN THE EVENING NEEDED FOR ANXIETY 56 tablet Active traMADol (Ultram) 50 MG tabletIndications: Chronic pain of both knees TAKE 1 TABLET BY MOUTH EVERY 6 HOURS NEEDED FOR SEVERE PAIN 112 tablet 06/12/20 25 10:11 AM EST Active zolpidem (Ambien) 10 MG tabletIndications: Anxiety TAKE 1 TABLET BY MOUTH AT BEDTIME NEEDED FOR SLEEP 7 tablet Active rosuvastatin (Crestor) 40 MG tablet TAKE 1 TABLET BY MOUTH EVERY DAY 022 06/04 Discontinued( Med list cleanup (will not trigger notification to Pharmacy)) LORazepam (Ativan) 2 MG tablet Take 1 tablet (2 mg) by mouth if needed in the morning and at bedtime for anxiety for up to 28 days. 56 tablet 025 06/04 Discontinued( Med list cleanup (will not trigger notification to Pharmacy)) gabapentin (Neurontin) 400 MG capsuleIndications :Chronic low back pain, unspecified back pain laterality, unspecified whether sciatica present TAKE 1 CAPSULE BY MOUTH TWICE DAILY IN THE MORNING AND AT NOON and TAKE 2 CAPSULES AT BEDTIME 120 capsule 5 025 06/04 Discontinued( Reorder (will not trigger notification to Pharmacy)) zolpidem (Ambien) 10 MG tabletIndications: Anxiety TAKE 1 TABLET BY MOUTH AT BEDTIME NEEDED FOR SLEEP 7 tablet 025 06/13 Discontinued LORazepam (Ativan) 2 MG tabletIndications: Anxiety TAKE 1 TABLET BY MOUTH TWICE DAILY IN THE MORNING AND IN THE EVENING NEEDED FOR ANXIETY. 56 tablet 025 06/04 Discontinued( Med list cleanup (will not trigger notification to Pharmacy)) Tirzepatide-Weight Management (Zepbound) 2.5 MG/0.5ML solution auto-injector Inject 0.5 mL (2.5 mg) under the skin 1 (one) time per week. 2 mL 3 025 06/04 Discontinued( Med list cleanup (will not trigger notification to Pharmacy)) Tirzepatide (Mounjaro) 2.5 MG/0.5ML solution auto-injectorIndic ations:Prediabetes Inject 2.5 mg under the skin 1 (one) time per week. 2 mL 1 06/03/20 25 2:25 PM EST 025 06/04 Discontinued( Dose adjustment) LORazepam (Ativan) 2 MG tabletIndications: Anxiety TAKE 1 TABLET BY MOUTH TWICE DAILY IN THE MORNING AND IN THE EVENING NEEDED FOR ANXIETY. 56 tablet 05/16/20 25 4:45 PM EST 025 06/11 Discontinued traMADol (Ultram) 50 MG tabletIndications: Chronic pain of both knees TAKE 1 TABLET BY MOUTH EVERY 6 HOURS NEEDED FOR SEVERE PAIN 112 tablet 05/08/20 25 9:42 AM EST 025 06/11 Discontinued Active Problems Patient Care Coordination No te Formatting of this note migh t be different from the original. C3/CM Celia Brown RN Problem Noted Date Diagnosed Date COPD (chronic obstructive pulmonary disease) 03/2025 Long-term current use of opiate analgesic 2024 Long-term current use of benzodiazepine 11/29/19 Severe dental caries 09/06/2024 Fibromyalgia 08/22/2023 Prediabetes 06/22/2023 Chronic pain of both knees 11/24/2022 Chronic restrictive lung disease 11/24/2022 Coronary arteriosclerosis 11/24/2022 History of COVID-19 11/24/2022 Fatty liver [...] Moderate persistent asthma 07/29/2022 Asthma-COPD overlap syndrome ([facility]) BMI 40.0-44.9, adult ([facility]) 07/29/2022 History of robot-assisted laparoscopic hysterect devan 07/29/2022 History of right oophorectomy 07/29/2022 Peripheral arterial disease 06/03/2022 Anxiety 05/26/2017 Hyperlipidemia 11/24/2016 Chronic bipolar disorder ([facility]) 04/02/2015 Posttraumatic stress disorder 04/02/2015 Resolved Problems Problem Noted Date Diagnosed Date Resolved Date Non-restorable tooth 09/06/2024 025 Abscess of axilla, right 12/28/2022 Morbid obesity ([facility]) 12/28/2022 Acute cellulitis 12/28/2022 08/22/2023 Positive blood [...] walk in. She was initially seen at [facility] on 08/12 for neck swelling, neck [...] Encounters Date Type Department Care Team Description 06/13/2025 Refill [facility] MEDICINE [address] [facility] [place] [address] Vesna Sanabria MD Anxiety 06/09/2025 Refill [facility] PEDS [address] [place], [place] [phone] Ava Yap DO Anxiety; Chronic pain of both knees 06/05/2025 1:30 PM EST Clinical Support [address] [address] Denisha Cross RN Long-term current use of opiate analgesic (Primary Dx); Long-term current use of benzodiazepine 06/04/2025 9:30 AM EST Office Visit [address] [address] Ava Yap DO Routine history and physical examination of adult (Primary Dx); Essential hypertension; Other hyperlipidemia; Prediabetes; Coronary arteriosclerosis; Chronic bipolar disorder (CMS/HCC) ([facility]); Anxiety; Moderate persistent asthma without complication; Chronic obstructive pulmonary disease, unspecified COPD type (CMS/HCC) ([facility]); Obstructive sleep apnea; Chronic migraine; Fatty liver; Chronic gastroesophageal reflux disease; Fibromyalgia; Chronic pain of both knees; Thumb pain, right; Acute pain of right shoulder; Paresthesias in right hand; Urinary incontinence, unspecified type; BMI 40.0-44.9, adult ([facility]) ([facility]); Dietary counseling; Exercise counseling; Breast cancer screening by mammogram; Encounter for immunization; Chronic low back pain, unspecified back pain laterality, unspecified whether sciatica present 06/04/2025 Telephone [facility] OPTOMETRY [address] [place] [phone] Michaelle Goodman OD 06/04/2025 Travel 06/03/[address] [address] Ava Yap DO Chart Prep 05/26/2025 Patient Outreach [address] [address] Ava Yap DO Pre-visit Planning (SDOH screening completed on 08/30/2024) 05/15/2025 Travel 05/14/[address] [address] Ava Yap DO Appointment Request 05/13/[address] [address] Ava aYp DO Prior Authorization ( PA: Lorazepam 2 MG) 05/10/2025 Refill [facility] [address] [place] [phone] Ava Yap DO Mild persistent asthma without complication 05/06/2025 Refill [facility] [address] [place] [address] Ava Yap DO Anxiety; Chronic pain of both knees 04/28/2025 Patient Outreach [facility] MED[facility]INE [address] [place] [phone] Ava Yap DO Care Coordination (C3CM/CHW [facility]baro [facility], [facility] follow up) 04/22/2025 Refill [facility] [address] [place] [address] Ava Yap DO Seasonal allergic rhinitis, unspecified trigger 04/07/2025 Refill [facility] [address] [place] [phone] Ava Yap DO Prediabetes 04/02/2025 Refill [facility] [address] [place] [address] Ava Yap DO Chronic pain of both knees 03/29/2025 Orders Only [facility] External Provider, [facility] 03/28/2025 Telephone [facility] [address] [place] [address] Ava Yap DO Prior Authorization 03/21/[address] [address] Ava Yap DO telephone call 03/19/2025 Telephone [facility] [address] [place] [address] Ava Yap DO Prior Authorization ( PA: Juan) from Last 3 Months Immunizations Immunization Administration Dates Next Due Hep A, Adult 09/11/2018,03/14/2018 Hep B, adult 09/11/2018,06/27/2018,03/14/2018 [place]a SARS-CoV-2 Vaccination 10/03/2020 Pfizer Covid-19 Vaccine 12+ 06/15/2021 Pneumococcal Polysaccharide PPSV23 04/02/2015 Tdap 06/04/2025,12/09/2014 Family History Medical History Relation Name Comments [...] the past 12 months, has t he [employer], gas, oil or water company threatened to [...] Sign Reading Time Taken Comments Blood Pressure 118/80 06/04/2025 9:46 AM EST Pulse 90 06/04/2025 9:46 AM EST Temperature 36.4 C (97.6 F) 06/04/2025 9:46 AM EST Respiratory Rate 20 06/04/2025 9:46 AM EST Oxygen Saturation 98% 06/04/2025 9:46 AM EST Inhaled Oxygen Concentration - - Weight 103 kg (226 lb 3.2 oz) 06/04/2025 9:46 AM EST Height 152.4 cm (5') 06/04/2025 9:46 AM EST Body Mass Index 44.18 06/04/2025 9:46 AM EST Plan of Treatment Upcoming Encounters Date Type Department Care Team (Late st Contact Info) Description 09/04/2025 1:00 PM EDT Clinical Support [facility] MEDICINE [address] [place] [phone] Denisha Cross, RN Health Maintenance Due Date Last Done Comments CT Colonography 1971 Colonoscopy 1971 Colorectal Cancer Screening 1971 Dental Oral Exam 1971 Dental Prophylaxis 1971 Dental X-Ray: Bitewings 1971 FIT DNA/Cologuard 1971 FIT 1971 FOBT 1971 Sigmoidoscopy 1971 Pap Smear 12/05/1992 Pneumococcal Vaccine: 50+ Years (2 of 2 - PCV) 04/02/2016 04/02/2015 RSV Patients and Patients Aged 60 years or older (1 - Risk 50-74 years 1-dose series) 12/05/2021 Zoster Vaccines (1 of 2) 12/05/2021 Dental X-Ray: Full Mouth 12/23/2023 12/21/2020 Cervical Cancer Screening 08/23/2024 HPV/Cotest 08/23/2024 08/23/2019, 07/22/2016 COVID-19 Vaccine ( - season) 2025 06/15/2021, 10/03/2020 Influenza Vaccine (#1) 2025 Mammogram 05/04/2025 05/04/2023, 1006/2021, 12/11/2020, Additional history exists Disability Screening 08/30/2025 08/30/2024 SDOH Screening 08/30/2025 08/30/2024 Diabetes: Hemoglobin A1C 10/31/2025 025, 09/05/2024, 12/13/2022, Additional history exists Alcohol/Substance Use Screening 02/05/2026 02/05/2025 Depression Screening 06/04/2026 06/04/2025, 06/04/20 25 Tobacco Screening 06/04/2026 06/04/2025 Lipid Panel 10/31/2029 10/31/2024, 0411/2024, 09/05/2024, Additional history exists DTaP/Tdap/Td Vaccines (3 - Td or Tdap) 06/04/2035 06/04/2025, 12/09/2014 Hepatitis A Vaccines Completed 09/11/2018, 03/14/20 18 [...] Comments POCT ELISEO-14 URINE DRUG SCREEN Routine 06/05/2025 12:49 PM EST Long-term current use of opiate analgesic Long-term current use of benzodiazepine CT CHEST WO CONTRAST Routine 03/29/2025 9:20 AM EDT HEMOGLOBIN A1C Routine 10/31/2024 9:00 AM [...] Relevant to Health Maintenance Results * (ABNORMAL) POCT ELISEO-14 Urine Drug Screen (06/05/2025 12:49 PM EST) THC Negative Negative Cocaine Screen, Urine Negative Negative Opiate Screen, Urine Negative Negative Methamphetamine Screen Urine Negative Negative Amphetamine Screen, Urine Negative Negative Benzodiazepines Screen, Urine Positive(A) Negative 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 05/26/26 Internal Pass Control Ava Yap DO POINT OF CARE TEST ENTER/HILARIO T ORDERABLES Final Result * CT Chest w/o Contrast (03/29/2025 9:20 AM EDT) Anatomical Region Laterality Modality Body, Chest Computed Tomogra phy 03/29/2025 9:20 AM EDT Narrative 03/31/2025 7:39 AM EDT [place] [address] CT Scan Report Signed Patient: Ximena Xiong MR#: [id number] : 1970 Acct:[id number] Age/Sex: 54 / F ADM Date: 03/29/25 Loc: HO.CT Attending Dr: Fermin Vyas MD Ordering Physician: Fermin Vyas MD Date of Service: 03/29/25 Procedure(s): CT chest wo IV con Accession Number(s): [id number] cc: Ava Yap DO; Fermin Vyas MD Report Number: [id number]: Total DLP = 270.00 mGy-cm Reason for Exam: R04.2 - Hemoptysis EXAMINATION: CT CHEST WITHOUT IV CONTRAST INDICATION: R04.2 - Hemoptysis COMPARISON: There are no prior studies available for comparison. TECHNIQUE: Helical CT scan of the chest was performed without intravenous contrast. Coronal and sagittal reformatted images were generated and reviewed. This CT exam was performed with one or more of the following dose reduction techniques: automated exposure control, adjustment of the mA and/or kV according to patient size, use of iterative reconstruction technique. DLP: 270 mGy-cm CHEST: THYROID: The thyroid is unremarkable. LUNGS: Again seen are scattered calcified granulomas in the right middle lobe (series 5, images 63 and 72), in the right lower lobe (series 6, image 86), in the left upper lobe (series 5, image 56), in the lingula (series 5, image 84), and in the left lower lobe (series 5, images 78, 86, and 101). There are no focal airspace opacities. MEDIASTINUM: There is no mediastinal lymphadenopathy. KIRSTY: Evaluation of the hilar regions is limited by lack of intravenous contrast material. CARDIOVASCULATURE: The heart is normal in size. There is no pericardial effusion. The thoracic aorta is normal in caliber. DEGREE OF CORONARY CALCIFICATION: mild PLEURA: There is no pleural effusion. No pneumothorax. MAIN AIRWAYS: The mainstem bronchi and proximal branches are patent. AXILLA: There is no axillary lymphadenopathy. BONES AND SOFT TISSUES: There is mild degenerative disc disease of the spine. UPPER ABDOMEN: The visualized portion of the liver demonstrates decreased attenuation, consistent with steatosis. The visualized portions of the spleen and adrenal glands have an unremarkable unenhanced appearance. There is a small hiatal hernia. CT/CT chest wo IV con IMPRESSION: 1. Scattered calcified granulomas. No focal airspace opacities are identified. 2. Hepatic steatosis. Electronically signed by: Tesfaye Whitaker MD 03/31/2025 07:36 AM EDT Dictated By: Tesfaye Whitaker MD Signed By: <Electronically signed by Tesfaye Whitaker MD in OV> 03/31/2536 DD/ 9 TD/TT: 03/29/25929 Sales Vendor: Procedure Note Donotuseinterpreter, Image - 03/31/[address] [address] [address] Scan Report Signed Patient: Kody Xiong#: [id number] : 1970Acct:[id number] Age/Sex: 54 / FADM Date: 03/29/25 Loc: HO.CT Attending Dr: Fermin Vyas MD Ordering Physician: Fermin Vyas MD Date of Service: 03/29/25 Procedure(s): CT chest wo IV con Accession Number(s): [id number] cc: Ava Yap DO; Fermin Vyas MD Report Number: [id number]: Total DLP = 270.00 mGy-cm Reason for Exam: R04.2 - Hemoptysis EXAMINATION: CT CHEST WITHOUT IV CONTRAST INDICATION: R04.2 - Hemoptysis COMPARISON: There are no prior studies available for comparison. TECHNIQUE: Helical CT scan of the chest was performed without intravenous contrast. Coronal and sagittal reformatted images were generated and reviewed. This CT exam was performed with one or more of the following dose reduction techniques: automated exposure control, adjustment of the mA and/or kV according to patient size, use of iterative reconstruction technique. DLP: 270 mGy-cm CHEST: THYROID: The thyroid is unremarkable. LUNGS: Again seen are scattered calcified granulomas in the right middle lobe (series 5, images 63 and 72), in the right lower lobe (series 6, image 86), in the left upper lobe (series 5, image 56), in the lingula (series 5, image 84), and in the left lower lobe (series 5, images 78, 86, and 101). There are no focal airspace opacities. MEDIASTINUM: There is no mediastinal lymphadenopathy. KIRSTY: Evaluation of the hilar regions is limited by lack of intravenous contrast material. CARDIOVASCULATURE: The heart is normal in size. There is no pericardial effusion. The thoracic aorta is normal in caliber. DEGREE OF CORONARY CALCIFICATION: mild PLEURA: There is no pleural effusion. No pneumothorax. MAIN AIRWAYS: The mainstem bronchi and proximal branches are patent. AXILLA: There is no axillary lymphadenopathy. BONES AND SOFT TISSUES: There is mild degenerative disc disease of the spine. UPPER ABDOMEN: The visualized portion of the liver demonstrates decreased attenuation, consistent with steatosis. The visualized portions of the spleen and adrenal glands have an unremarkable unenhanced appearance. There is a small hiatal hernia. CT/CT chest wo IV con IMPRESSION: 1. Scattered calcified granulomas. No focal airspace opacities are identified. 2. Hepatic steatosis. Electronically signed by: Tesfaye Whitaker MD 03/31/2025 07:36 AM EDT RP Dictated By: Tesfaye Whitaker MD Signed By: <Electronically signed by Tesfaye Whitaker MD in OV> 03/31/2536 DD/ 9 TD/TT: 03/29/25929 Sales Vendor: [facility] External Provider IMG CT PROCEDURES Final Result * Hemoglobin A1c (10/31/2024 9:00 AM EDT) Hemoglobin A1c 6.0 <6.0 % [facility] Comment:Hemoglobin A1C Refer ence Range Adults: 4.8 - 6.0 % Non diabetic: < 6.0 % Goal: < 7.0 %Additional Action Suggested: > 8.0 %Note: Hemoglobin A1c results are invalid for patients with abnormal amounts of HbF. Blood transfusions may impact the HbA1c concentration in the patient sample. Estimated Average Glucose 126 mg/dL [facility] Comment:eAG = Estimated ave rage glucose which is %A1C expressed asaverage glucose, using the formula of the U9T-SmojdrrZrtrjys Glucose study (ADAG), Diabetes Care, Vol.31,#8,Jan. 2007 10/31/2024 9:00 AM EDT 10/31/2024 9:00 AM EDT Generic External Data Provider LAB BLOOD ORDERAB LES Final Result [facility] [address] [place] [phone] * (ABNORMAL) Lipid Panel, Standard (10/31/2024 9:00 AM EDT) Triglycerides 198(H) <150 mg/dL [facility] Comment:Desirable Triglyceri de: less than 150 mg/dLBorderline High Triglyceride 150-199 mg/dLHigh Triglyceride: 200-499 mg/dLVery High Triglyceride: greater than or equal to 5OO mg/dL Cholesterol 159 <200 mg/dL [facility] Comment:Desirable Cholestero l: less than 200 mg/dLBorderline High Cholesterol: 200-239 mg/dLHigh Cholesterol: greater than 239 mg/dL LDL Cholesterol Calculated 75 <100 mg/dL [facility] Comment:Desirable LDL: less than 100 mg/dLNear Optimal/Above Optimal LDL: 110- 129 mg/dLBorderline High LDL: 130-159 mg/dLHigh LDL: 160-189 mg/dLVery High LDL: greater than or equal to 190 mg/dL HDL Cholesterol 45 >40 mg/dL [facility] Comment:Desirable HDL: great er than 40 mg/dL Note: This HDL assay may give artificially low results in patients with liver disease. 10/31/2024 9:00 AM EDT 10/31/2024 9:00 AM EDT us Generic External Data Provider LAB BLOOD ORDERAB LES Final Result Performing Organization Address [facility] Co de Phone Number [facility] [address] [place] [phone] * Hepatitis C Antibody with Reflex to HCV, RNA, Quantitative, Real-Time PCR (09/05/2024 11:10 AM EDT) Hepatitis C Antibody Nonreactive Nonreactive [facility] Comment:Antibodies to HCV no t detected; does not exclude early acuteHCV infection. Blood Venous blood specimen / Unknown 09/05/2024 11:10 AM EDT 09/05/2024 1:25 PM EDT us Ava Yap DO LAB BLOOD ORDERABLES Final R esult Performing Organization Address City/[facility]/ZIP Co de Phone Number [facility] [address] [place] [phone] * HIV-1/2 Antigen and Antibodies, Fourth Generation, with Reflexes (09/05/2024 11:10 AM EDT) HIV AB/AG Nonreactive Nonreactive [facility] Comment:HIV-1 p24 Ag and/or HIV-1/HIV-2 Ab not detected.A test result that is nonreactive does not exclude thepossibility of exposure to or infection with HIV-1 and/orHIV-2. Nonreactive results in this assay for individualswith prior exposure to HIV-1 and/or HIV-2 may be due toantigen and antibody levels that are below the limit ofdetection of this assay.The [email or web address] HIV Ag/Ab Combo assay result andsupplemental assay results should be interpreted inconjunction with the patient's clinical presentation,history and other laboratory results. If the results areinconsistent with clinical evidence, additional testing issuggested to confirm the result. Blood Venous blood specimen / Unknown 09/05/2024 11:10 AM EDT 09/05/2024 1:25 PM EDT us Ava Yap DO LAB BLOOD ORDERABLES Final R esult [facility] [address] [place] [phone] * BI Mammogram Screening Tomosynthesis Bilateral (05/04/2023 1:45 PM EST) Anatomical Region Laterality Modality Breast Bilateral Mammography 05/04/2023 1:45 PM EST Narrative 05/22/2023 6:55 AM EST [address] [place] [address] Mammography Report Signed Patient: Ximena Xiong MR#: [id number] : 1970 Acct:[id number] Age/Sex: 52 / F ADM Date: 05/04/23 Loc: HO.MAMMO Attending Dr: Ava Yap DO Ordering Physician: Ava Yap DO Results: 1N egative Date of Service: 05/04/23 Follow Up: 1 Year From [facility] Mammogram Procedure(s): MM tomosynthesis screening BI Accession Number(s): [id number] cc: Ava Yap DO EXAMINATION: MM SCREENING [...] in OV> 05/22/23 0651 DD/ 1345 TD/TT: Sales Vendor: Procedure Note Donotuseinterpreter, Image - 05/22/2023 [facility] [address] [place] [address] Mammography Report Signed Patient: Heath XiongR#: [id number] : 1970Acct:[id number] Age/Sex: 52 / FADM Date: 05/04/23 Loc: HO.MAMMO Attending Dr: Ava Yap DO Ordering Physician: Ava Yap DOResults: 1N egative Date of Service: 05/04/23Follow Up: 1 Year From Orig inal Mammogram Procedure(s): MM tomosynthesis screening BI Accession Number(s): [id number] cc: Ava Yap DO EXAMINATION: MM SCREENING [...] in OV> 05/22/23 0651 DD/ 1345 TD/TT: Sales Vendor: Ava Yap DO IMG BI PROCEDURES Final Resu lt * HPV E6/E7 RFLX ELMER 16 18/45 (08/23/2019 11:30 AM EST) ADDITIONAL TESTING Not indicated () [facility] Comment: Test Performed by [employer] [place], [employer] [place], [address] [place] [address] Jorge López M.D., Ph.D., Director of Laboratories , [facility] [id number] HPV 16 RNA Test not performed [facility] HPV 18/45 RNA Test not performed [facility] HPV mRNA E6/E7 Not Detected NOT DETECTED [facility] Comment: This test was performed using the APTIMA(R) HPV Assay ([employer] This assay detects E6/E7 viral messenger RNA (mRNA) from 14 high-risk HPV types (16,18,31,33,35,39,45,51, 52,56,58,59,66,68). For additional information please refer to: http://education.[employer]/faq/MZC878l6 (This link is being provided for informational/ educational purposes only.) The analytical performance characteristics of this assay have been determined by [employer] [place], [place]. The modifications have not been cleared or approved by the FDA. This assay has been validated pursuant to the CLIA regulations and is used for clinical purposes. Please note: Effective 03/07/2016, HPV testing will be performed using [employer]'s APTIMA test which targets mRNA. Detecting mRNA instead of DNA, as in older methods, offers significant improvements in specificity. 08/23/2019 11:3 0 AM EST us Ava Yap DO HISTORICAL/NON ORDERABLE LAB S Final Result [facility] Anywhere [address] from Last 3 Months or Most Recently Relevant to Health Maintenance Insurance [facility] C3 DENTAL-[facility] MEDICAID STAND ADULT Care Teams Scrubber Operator Relationship Specialty Start Date End Date Ava Yap DO [address] [place] [id number] PCP - General Family Medicine 03/28/11 Avelina Hodges Frame WirerProduction Administrative Assistant 04/21/23
--- OUTSIDE RECORDS SUMMARY | 2025-06-16 17:47 | XMS_ITS | Encounter Summary ---
Author Organization [employer] Address [address] [facility] 7 [place] [address] Care Team Providers Care Anesthesiology Teacher Name Role Phone FraciscoAva Primary Care Provider + [phone] Reason for Visit * Reason Comments Med Refill Encounter Details Date Type Department Care Team ([facility] st Contact Info) Description 08/04/2023 Refill [facility] MEDICINE [address] [place], [place] [phone] Svetlana Mccollum MD [address] [place], [place] [phone] Anxiety Social History Tobacco Use Types Packs/Day [...] 1:00 PM EDT Clinical Support [facility] MEDICINE [address] [place] [phone] Denisha Cross RN documented as of this encounter Visit Diagnoses Diagnosis Anxiety Anxiety state, unspecified documented in this encounter Additional Health Concerns Assessment Noted Time PHQ-9 Depression Total Score: 5 06/22/20 23 10:59 AM EST documented as of this encounter Care Teams Anesthesiology Teacher Relationship Specialty Start Date End Date Ava Yap DO [address] [place] [phone] PCP - General Family Medicine 03/28/11 Avelina Hodges Acid Tank CleanerAuditor/Quality 04/21/23 documented as of this encounter
--- OUTSIDE RECORDS SUMMARY | 2025-06-16 17:47 | XMS_ITS | Encounter Summary ---
Author Organization [employer] Address [address] [place] [address] [address] Care Team Providers Care Skoog Patching Machine Operator Name Role Phone Ava Yap DO Primary Care Provider + [phone] Reason for Visit * Reason Onset Date Comments Appointment Request 07/16/2024 Call Back Request 07/16/2024 Encounter Details Date Type Department Care Team ([facility] st Contact Info) Description 07/16/2024 Telephone [facility] MEDICINE [address] [place], [place] [phone] Ava Yap DO [address] [place], [place] [phone] Appointment Request; Call Back Request Social History [...] she don't want to be without meds. [phone] documented in this encounter Plan of Treatment Upcoming Encounters Date Type Department Care Team (Late st Contact Info) Description 09/04/2025 1:00 PM EDT Clinical Support [facility] MEDICINE [address] [place] [address] Denisha Cross, DEVI documented as of this encounter Visit Diagnoses Not on filedocumented in this encounter Additional Health Concerns Assessment Noted Time PHQ-9 Depression Total Score: 5 06/22/20 10:59 AM EST documented as of this encounter Care Teams Skoog Patching Machine Operator Relationship Specialty Start Date End Date Ava Yap DO [address] [place] [address] PCP - General Family Medicine 03/28/11 Avelina Hodges Steam Conditioner OperatorProperty Analyst 04/21/23 documented as of this encounter
== END 2025-06-16 14:44 | disposition home or self-care (01) ==
LOC: HO.HPS 14:20
PROVIDERS: PCP Family Medicine; Visit Provider Hospitalist
DX: J44.9 Chronic obstructive pulmonary disease, unspecified (principal); G47.33 Obstructive sleep apnea (adult) (pediatric); J98.4 Other disorders of lung
CPT/HCPCS: 99214

== ENCOUNTER → 2025-06-16 14:19 | Outpatient (BNVA) | payer MEDICAID, SELFPAY | PROVIDERS: PCP Family Medicine; Visit Provider Hospitalist | DX: J44.9 Chronic obstructive pulmonary disease, unspecified (principal); J98.4 Other disorders of lung; G47.33 Obstructive sleep apnea (adult) (pediatric); Z79.899 Other long term (current) drug therapy; Z99.89 Dependence on other enabling machines and devices; Z87.891 Personal history of nicotine dependence | CPT/HCPCS: 99212 ==